=== PATIENT | female | born 1950 | race Caucasian/White ===

== ENCOUNTER 2016-07-08 14:09 | Emergency (ER) | payer BC, MEDICARE, OTHER ==
[~2016-07-08] VITALS: Ht 160 cm; Wt 100.3 kg
[~2016-07-08 14:09] MED LIST: ALBU18002 INH; ASPI81TA28 PO; ATV1 PO; BIOT1CAP3 PO; CHOL1000 PO; CYCL10TA6 PO; DXP/75 PO; ERGO1CAP35 PO; OMEP40CA41 PO; OXYC-57 PO; PROM25SU28 PR; ROSU5TAB PO; RST15 PO
[2016-07-08 14:13] VITALS: TEMP 37; Ht 160 cm; Wt 100.3 kg
[2016-07-08] MEDS ORDERED: VTMD PO (14:43)
[2016-07-08] MEDS ORDERED: HYDROmorphone INJ 0.5 MG/0.5 ML SYR IV STA ×2 (15:09→16:20)
[2016-07-08] MEDS ORDERED: SODIUM CHLORIDE 0.9% 500ML 500 ML IV STA (15:09)
[2016-07-08] MEDS ORDERED: PROMETHAZINE HCL INJ 12.5 MG in SODIUM CHLORIDE 0.9% 50ML 50 ML IV STA (15:09)
--- NOTE | 2016-07-08 15:16 | EMERGENCY ROOM VISIT NOTE ---
History First contact with patient: 14:54 Chief Complaint: NAUSEA Stated Complaint: NAUSEA, WEAKNESS BOTH IN ARMS AND LEGS Nursing Triage Summary: Triage note: pt ambulatory to triage. pt reports bilat arm and weakness x 3 days. pt reports nausea, vomitting and diarrhea since yesterday. pt reports left shoulder pain "i need a shoulder replacement, i think the pain is making me sick." History of Present Illness The patient is a 66 year old female who presents to the Emergency Room via private vehicle accompanied by with complaints of "Nausea, weakness both in arms and legs". The patient states that she began with nausea 3 days ago as well as weakness and severe pain left shoulder. She feels the pain in the shoulder is out of control. She was to have surgery on the left shoulder by Dr. Funes, in April but the patient had pneumonia therefore had to reschedule. She has associated vomiting which began this morning. She then notes that the generalized weakness began last Thursday and is described as "tired". She has a history of shoulder replacements in 2011 and 2012 with severe pain of which she rates as a 9/10. She's been taking her Percocet 5/325 with no relief. She does have neuropathy in her feet which also causes her a lot of pain. She does have a history of hypertension, as well as used to have diabetes. She did have a stroke last November. There is no associated diarrhea, slurred speech, unilateral weakness, abdominal pain, chest pain, shortness of breath, fevers, chills, new trauma or recent surgery, or urinary symptoms. Review of Systems A complete 10-point Review of Systems was discussed with the patient, with pertinent positives and negatives listed in the History of Present Illness. All remaining Review of Systems questions can be considered negative unless otherwise specified. Past Medical/Surgical History Medical Problems: (1) Anxiety (2) Asthma (3) C. difficile diarrhea (4) section (5) Cholecystectomy (6) DM2 (diabetes mellitus, type 2) (7) Hypertension (8) left shoulder surgery (9) Noncompliance w/medication treatment due to intermit use ofmedication (10) Parathyroidectomy (11) Replacement of total knee joint (12) Sacral back pain (13) Syncope Surgical Problems: (1) H/O spinal fusion Family History Diabetes mellitus Gallbladder disease Heart disease Hypertension Social History Smoking Status: Never Smoker Alcohol Use: none Marital Status: Housing Status: lives with significant other Occupation Status: unemployed Current/Historical Medications Scheduled Aspirin (Aspirin Ec), 81 MG PO QAM Biotin (Biotin), 10,000 UNITS PO QAM Cholecalciferol (Vitamin D3), 1 TAB PO QAM Doxepin Hcl (Doxepin), 75 MG PO QAM Doxepin Hcl (Doxepin), 150 MG PO QPM Ergocalciferol (Vitamin D), 50,000 INTER.UNIT PO 3XWK Lorazepam (Lorazepam), 1 MG PO QAM Omeprazole (Prilosec), 40 MG PO QAM Pediatric Multiple Vitamin W/ (Multivitamin Gummies Chil), 1 TAB PO QAM Scheduled PRN Cyclobenzaprine Hcl (Flexeril), 10 MG PO BID PRN for Muscle Spasm Oxycodone/Acetaminophen 5MG/325MG (Percocet 5MG/325MG), 1 TABLET PO Q6H PRN for Pain Promethazine Hcl (Phenergan Suppository), 25 MG IL Q6H PRN for Nausea Temazepam (Temazepam), 15 MG PO HS PRN for Sleep Allergies Coded Allergies: Atorvastatin (Verified Allergy, Unknown, myalgias per PCP note , 07/08/16) CI Pigment Blue 63 (Verified Adverse Reaction, Mild, PSYCHOSIS, 07/08/16) Duloxetine (Verified Adverse Reaction, Mild, PSYCHOSIS, 07/08/16) Gabapentin (Verified Adverse Reaction, Mild, PSYCHOSIS, 07/08/16) Morphine (Verified Adverse Reaction, Mild, NAUSEA, 07/08/16) NSAIDs (Verified Adverse Reaction, Unknown, s/p bariatric surgery, 07/08/16 ) per [facility] [place] Physical Exam Vital Signs Date Time Temp Pulse Resp B/P Pulse Ox O2 Delivery O2 Flow Rate FiO2 07/08/16 19:59 89 18 160/100 95 07/08/16 17:39 89 18 07/08/16 17:09 79 25 07/08/16 16:39 88 31 07/08/16 16:11 93 20 154/101 95 Room Air 07/08/16 16:10 154/101 07/08/16 16:09 30 07/08/16 15:41 93 07/08/16 15:39 93 26 07/08/16 14:13 37.0 124 18 142/80 94 Room Air Physical Exam VITAL SIGNS - Vital signs and nursing notes were reviewed. Afebrile, normotensive 142/80, tachycardic at a rate of 124 bpm and saturating well on room air 94%. GENERAL -66-year-old female appearing her stated age who is in no acute distress. Communicates well with provider and answers questions appropriately. SKIN - Without rashes. No breaks in the integument. HEAD - NC/AT. EYES - PERRL with EOMI bilaterally. Sclera anicteric. Palpebral conjunctiva pink and moist with no injection noted. EARS - No deformities of external structures noted on gross examination bilaterally. No hemotympanum. External auditory canals without discharge or otorrhea. Tympanic membranes pearly pederson without retraction or bulging. No fluid or purulent material visualized behind the TM. Handle of malleus, umbo, cone of light, pars tensa/flaccid all easily visualized. NOSE - Midline and without cyanosis. No epistaxis or purulent drainage noted. Septum midline without deviation or septal hematoma noted. MOUTH/OROPHARYNX - Without perioral cyanosis. Buccal mucosa pink and moist and without leukoplakia. Tongue midline with equal elevation of palate bilaterally. No tonsillar hypertrophy, erythema, or exudates noted. Good dentition noted. NECK - Neck with FROM. Supple to palpation. No lymphadenopathy noted. No nuchal rigidity. No meningeal signs. LUNGS - Chest wall symmetric without accessory muscle use, intercostals retractions, or central cyanosis. Normal vesicular breath sounds CTA B/L. No wheezes, rales, or rhonchi appreciated. CARDIAC - RRR with S1/S2. No murmur, rubs, or gallops appreciated. ABDOMEN - Abdominal contour without pulsations or visible masses. BS normoactive all four quadrants. No tenderness, palpable masses, hepatosplenomegaly, or ascites noted. EXTREMITIES - No clubbing or peripheral cyanosis. No pretibial edema present. +3 /5 radial, posterior tibial, and dorsalis pedis pulses palpated throughout. +5/ 5 strength noted in UE/LE bilaterally. The left shoulder is with limited range of motion, with tenderness to abduction of the left shoulder. There is pain radiating down to the left hand. No neurologic deficits appreciated. NEUROLOGIC - Cranial nerves II through XII grossly intact. Sensory intact to light touch throughout. PSYCH - A&Ox3 and cooperates fully with examiner. Pt is very pleasant and interacts well with examiner. Medical Decision & Procedures ER Provider Diagnostic Interpretation: CT SCAN OF THE BRAIN WITHOUT IV CONTRAST CLINICAL HISTORY: Nausea. Weakness. COMPARISON STUDY: CT of the brain dated 03/25/2016. TECHNIQUE: Unenhanced axial CT scan of the brain is performed from the vertex to the skull base. CT DOSE: 614.27 mGy.cm FINDINGS: Brain parenchyma: There are age-related involutional changes noting mild subcortical and periventricular microangiopathic change. There is no hemorrhage, mass effect, or evidence of acute territorial ischemia by CT criteria. Pederson-white matter is preserved. No extra-axial fluid collection is seen. Ventricles, sulci, cisterns: Prominent secondary to involutional change. Intracranial vasculature: There is atherosclerotic calcification of the cavernous carotid and vertebral arteries. Calvarium: The calvarium appears intact. There is incomplete fusion of the posterior ring of C1, likely on a congenital basis. Sinuses and mastoids: There is evidence of previous paranasal sinus surgery. The visualized paranasal sinuses are clear. The mastoid air cells are well pneumatized. Orbits: The bony orbits are grossly intact. There are ocular lens implants. IMPRESSION: There is no hemorrhage, mass effect, or evidence of acute territorial ischemia by CT criteria. Electronically signed by: Jarod Singleton M.D. 07/08/2016 4:11 PM Dictated Date/Time: 07/08/2016 4:08 PM ULTRASOUND LEFT UPPER EXTREMITY VENOUS CLINICAL HISTORY: Left arm pain and edema. COMPARISON STUDY: No priors. TECHNIQUE: Real-time, grayscale, and color Doppler sonography of the deep veins of the left upper extremity is performed. Compression and augmentation were utilized. FINDINGS: There is no sonographic evidence of deep venous thrombosis identified in the left upper extremity. The left internal jugular, axillary, and brachial veins are patent and normally compressible. Normal venous waveforms and augmentation are seen within the left subclavian vein. The cephalic and basilic veins are clear. The visualized radial and ulnar veins are patent. IMPRESSION: There is no sonographic evidence of deep venous thrombosis identified in the left upper extremity. Electronically signed by: Jarod Singleton M.D. 07/08/2016 6:46 PM Dictated Date/Time: 07/08/2016 6:46 PM TWO VIEW CHEST CLINICAL HISTORY: Left shoulder pain. Weakness and nausea. FINDINGS: PA and lateral chest radiographs are compared to study dated 05/25/2016. The heart is top normal in size and there is atherosclerotic calcification of the thoracic aorta. The pulmonary vasculature is noncongested. Chronic interstitial thickening is unchanged. There is no airspace consolidation or pleural effusion. Chronic elevation of left hemidiaphragm is similar to previous with left basilar atelectasis. No pneumothorax is seen. The skeletal structures are osteopenic. A left shoulder arthroplasty is in place. Degenerative change is noted throughout the thoracic spine. Fusion hardware and spinal rods are partially imaged at the thoracolumbar junction. Surgical clips are seen in the upper abdomen. IMPRESSION: No active disease in the chest. Electronically signed by: Jarod Singleton M.D. 07/08/2016 4:34 PM Dictated Date/Time: 07/08/2016 4:32 PM LEFT SHOULDER 4 VIEWS CLINICAL HISTORY: Left shoulder pain. Left arm weakness. FINDINGS: 4 views of the left shoulder are compared to study dated 11/19/2011. The skeletal structures are osteopenic. No fracture is seen. A left shoulder arthroplasty is in near-anatomic alignment. Postoperative change/widening is suggestive the acromioclavicular joint with mild bony overgrowth. No periprosthetic lucency is identified. Bony remodeling is noted in the greater tuberosity. The overlying soft tissues are within normal limits. Partially imaged left upper lobe lung parenchyma appears clear. IMPRESSION: No acute bony abnormality is seen in the left shoulder noting an arthroplasty in near-anatomic alignment. Electronically signed by: Jarod Singleton M.D. 07/08/2016 4:36 PM Dictated Date/Time: 07/08/2016 4:34 PM Laboratory Results 07/08/16 15:30 Red Blood Count 4.39, Mean Corpuscular Volume 91.1, Mean Corpuscular Hemoglobin 32.3, Mean Corpuscular Hemoglobin Concent 35.5, Mean Platelet Volume 9.0, Neutrophils (%) (Auto) 74.1, Lymphocytes (%) (Auto) 18.6, Monocytes (%) (Auto) 6.3, Eosinophils (%) (Auto) 0.4, Basophils (%) (Auto) 0.2, Neutrophils # (Auto) 4.04, Lymphocytes # (Auto) 1.01, Monocytes # (Auto) 0.34, Eosinophils # (Auto) 0.02, Basophils # (Auto) 0.01 07/08/16 15:30 Test 07/08/16 15:26 07/08/16 15:30 07/08/16 15:56 07/08/16 16:39 Urine Color YELLOW Urine Appearance CLEAR (CLEAR) Urine pH 5.0 (4.5-7.5) Urine Specific [place] 1.021 (1.000-1.030) Urine Protein NEG (NEG) Urine Glucose (UA) 3+ (NEG) Urine Ketones NEG (NEG) Urine Occult Blood NEG (NEG) Urine Nitrite NEG (NEG) Urine Bilirubin NEG (NEG) Urine Urobilinogen NEG (NEG) Urine Leukocyte Esterase NEG (NEG) White Blood Count 5.44 K/uL (4.8-10.8) Red Blood Count 4.39 M/uL (4.2-5.4) Hemoglobin 14.2 g/dL (12.0-16.0) Hematocrit 40.0 % (37-47) Mean Corpuscular Volume 91.1 fL (80-100) Mean Corpuscular Hemoglobin 32.3 pg (25-34) Mean Corpuscular Hemoglobin Concent 35.5 g/dl (32-36) Platelet Count 246 K/uL (130-400) Mean Platelet Volume 9.0 fL (7.4-10.4) Neutrophils (%) (Auto) 74.1 % Lymphocytes (%) (Auto) 18.6 % Monocytes (%) (Auto) 6.3 % Eosinophils (%) (Auto) 0.4 % Basophils (%) (Auto) 0.2 % Neutrophils # (Auto) 4.04 K/uL (1.4-6.5) Lymphocytes # (Auto) 1.01 K/uL (1.2-3.4) Monocytes # (Auto) 0.34 K/uL (0.11-0.59) Eosinophils # (Auto) 0.02 K/uL (0-0.5) Basophils # (Auto) 0.01 K/uL (0-0.2) RDW Standard Deviation 45.4 fL (36.4-46.3) RDW Coefficient of Variation 13.6 % (11.5-14.5) Immature Granulocyte % (Auto) 0.4 % Immature Granulocyte # (Auto) 0.02 K/uL (0.00-0.02) Anion Gap 9.0 mmol/L (3-11) Est Creatinine Clear Calc Drug Dose 84.5 ml/min Estimated GFR () 98.8 Estimated GFR (Non- 85.2 BUN/Creatinine Ratio 19.2 (10-20) Calcium Level 8.6 mg/dl (8.5-10.1) Magnesium Level 2.0 mg/dl (1.8-2.4) Total Bilirubin 0.1 mg/dl (0.2-1) Aspartate Amino Transf (AST/SGOT) 14 U/L (15-37) Alanine Aminotransferase (ALT/SGPT) 17 U/L (12-78) Alkaline Phosphatase 125 U/L (45-117) Total Creatine Kinase 43 U/L (26-192) Creatine Kinase MB 1.0 ng/ml (0.5-3.6) Creatine Kinase MB Ratio 2.3 (0-3.0) Troponin I < 0.015 ng/ml (0-0.045) Pro-B-Type Natriuretic Peptide 212 pg/ml (0-900) Total Protein 6.3 gm/dl (6.4-8.2) Albumin 3.3 gm/dl (3.4-5.0) Globulin 3.0 gm/dl (2.5-4.0) Albumin/Globulin Ratio 1.1 (0.9-2) Chemistry Specimen Hemolysis Influenza Type A Antigen Neg for Influ A (NEG) Influenza Type B Antigen Neg for Influ B (NEG) D-Dimer 340 ug/L FEU (0-500) Medications Administered Medications (Trade) Dose Ordered Sig/Valente Route Start Time Stop Time Status Last Admin Dose Admin Sodium Chloride (Nss 500ml) 500 ml @ 500 mls/hr Q1H STAT IV 07/08/16 15:09 07/08/16 16:08 DC 07/08/16 15:41 500 MLS/HR Hydromorphone HCl 0.5 mg 0.5 mg NOW STAT IV 07/08/16 15:09 07/08/16 15:14 DC 07/08/16 15:44 0.5 MG Promethazine HCl/ Sodium Chloride (Phenergan Inj/ Nss 50ml) 50.5 ml @ 204 mls/hr NOW STAT IV 07/08/16 15:09 07/08/16 15:23 DC 07/08/16 15:40 204 MLS/HR Hydromorphone HCl (Dilaudid Inj) 0.5 mg NOW STAT IV 07/08/16 16:20 07/08/16 16:21 DC 07/08/16 16:31 0.5 MG Medical Decision Patient was seen and evaluated as above. After obtaining a thorough history and physical examination IV access was obtained and a CBC, CMP, d-dimer, magnesium, chest two-view routine, shoulder two-view routine, troponin, stat EKG , CK-MB, CPK secondary to subjective and objective examination findings. She was hydrated with 500 mL some normal saline as she stated she felt dehydrated and did have an episode of emesis. For pain she was given 0.5 mg of Dilaudid after noting a morphine allergy and then 12.5 mg of Phenergan as she states this works better Zofran for her. The Dilaudid was repeated after some time because the patient still experiencing noticeable pain. A CT scan of the head was obtained as well as a BNP, UA clean catch culture if indicated and flu swab. In review of the blood work CBC reveals no leukocytosis or anemia. D- dimer is negative. CMP reveals elevated random glucose and decrease in total bilirubin and AST as well as alkaline phosphatase elevation at 125. Total protein and albumin were slightly low. Urine was negative. There was 3+ glucose. Negative influenza. Upper extremity ultrasound reveals no DVT, CT of the head reveals no acute abnormalities but the external findings were discussed with the patient. Chest x-ray and shoulder x-ray were unremarkable for acute process. The patient is most likely experiencing a viral illness injury to her general malaise and vomiting. I do not suspect any emergent or surgical infectious process at this time. Her vital signs are stable. I do not suspect any acute coronary syndrome or pulmonary embolism patient's EKG revealed no significant change compared to EKG of 05/25/2016. She was found to have a ventricular rate of 92 bpm without ectopy or ischemic change. The patient was educated upon these findings and was instructed to follow-up. I suspect the left shoulder pain is secondary to her chronic findings that she follows the orthopedist 4. The ultrasound of the left upper extremity was ordered because there was noted swelling in the left arm without injury this did not reveal any blood clot at this time. I believe she is able follow up in the outpatient setting at this time. She was educated upon worrisome symptoms in which to return, had questions answered prior to discharge and was discharged home in good condition. The patient noted that her pain did feel better than when she came in. In the evaluation treatment this patient following differential diagnoses were entertained: Myocardial infarction, viral illness, pulmonary embolism, sepsis, left shoulder fracture, among others. Impression Primary Impression: Weakness Additional Impressions: Nausea Shoulder pain, left Departure Information Dispostion Home / Self-Care Condition GOOD Referrals Conrad Mckeon D.O. (PCP) Patient Instructions My [facility] Additional Instructions You were seen in the emergency department for nausea and weakness in both arms and legs. A thorough workup has ruled out any emergent causes at this time. As we discussed there are some incidental findings within the blood work as well as the scans. There is atherosclerotic calcification in the carotid, vertebral and thoracic aorta. Please follow up with her family doctor regarding this. Please follow-up with her family doctor regarding today's visit as soon as possible by calling their office first thing tomorrow morning. Please call Dr. Funes's office to inform them that you were seen in the emergency department for your shoulder and please request sooner follow-up. Please return to the emergency department with any new/concerning symptoms. Problem Qualifiers Additional Impressions: Shoulder pain, left Chronicity: chronic Qualified Codes: M25.512 - Pain in left shoulder; G89.29 - Other chronic pain
[2016-07-08 15:45] LABS: BASO % 0.2 %; BASO ABS # 0.01 K/uL (0-0.2); COMPLETE YES; EOS % 0.4 %; IG% 0.4 %; LYMPH % 18.6 %; LYMPH ABS # 1.01 K/uL (1.2-3.4); MEAN CELL VOLUME 91.1 fL (80-100); MEAN CORPUSCULAR HEMOGLOBIN 32.3 pg (25-34); MEAN CORPUSCULAR HGB CONC 35.5 g/dl (32-36); MONO % 6.3 %; NEUT % 74.1 %; PLATELET COUNT 246 K/uL (130-400); RED BLOOD COUNT 4.39 M/uL (4.2-5.4); WHITE BLOOD COUNT 5.44 K/uL (4.8-10.8)
[2016-07-08 16:10] LABS: ALB/GLOB RATIO 1.1 (0.9-2); ALKALINE PHOSPHATASE 125 U/L (45-117); ALT/SGPT 17 U/L (12-78); AST/SGOT 14 U/L (15-37); BLOOD UREA NITROGEN 14 mg/dl (7-18); BUN/CREATININE RATIO 19.2 (10-20); CALCIUM 8.6 mg/dl (8.5-10.1); CARBON DIOXIDE 24 mmol/L (21-32); CHLORIDE 106 mmol/L (98-107); CKMB/CK RATIO 2.3 (0-3.0); CREATININE 0.73 mg/dl (0.60-1.20); GLUCOSE 149 mg/dl (70-99); POTASSIUM 3.9 mmol/L (3.5-5.1); SODIUM 139 mmol/L (136-145)
--- NOTE | 2016-07-08 16:13 | DIAGNOSTIC IMAGING REPORT ---
CT SCAN OF THE BRAIN WITHOUT IV CONTRAST CLINICAL HISTORY: Nausea. Weakness. COMPARISON STUDY: CT of the brain dated 03/25/2016. TECHNIQUE: Unenhanced axial CT scan of the brain is performed from the vertex to the skull base. CT DOSE: 614.27 mGy.cm FINDINGS: Brain parenchyma: There are age-related involutional changes noting mild subcortical and periventricular microangiopathic change. There is no hemorrhage, mass effect, or evidence of acute territorial ischemia by CT criteria. Pederson-white matter is preserved. No extra-axial fluid collection is seen. Ventricles, sulci, cisterns: Prominent secondary to involutional change. Intracranial vasculature: There is atherosclerotic calcification of the cavernous carotid and vertebral arteries. Calvarium: The calvarium appears intact. There is incomplete fusion of the posterior ring of C1, likely on a congenital basis. Sinuses and mastoids: There is evidence of previous paranasal sinus surgery. The visualized paranasal sinuses are clear. The mastoid air cells are well pneumatized. Orbits: The bony orbits are grossly intact. There are ocular lens implants. IMPRESSION: There is no hemorrhage, mass effect, or evidence of acute territorial ischemia by CT criteria. Electronically signed by: Jarod Singleton M.D. 07/08/2016 4:11 PM Dictated Date/Time: 07/08/2016 4:08 PM
[2016-07-08 16:34] LABS: URINE APPEARANCE CLEAR (CLEAR); URINE BILIRUBIN NEG (NEG); URINE COLOR YELLOW; URINE NITRITE NEG (NEG); URINE SPECIFIC GRAVITY 1.021 (1.000-1.030); UROBILINOGEN NEG (NEG); ZZUR CULT IF INDIC CLEAN CATCH NO
--- NOTE | 2016-07-08 16:36 | DIAGNOSTIC IMAGING REPORT ---
TWO VIEW CHEST CLINICAL HISTORY: Left shoulder pain. Weakness and nausea. FINDINGS: PA and lateral chest radiographs are compared to study dated 05/25/2016. The heart is top normal in size and there is atherosclerotic calcification of the thoracic aorta. The pulmonary vasculature is noncongested. Chronic interstitial thickening is unchanged. There is no airspace consolidation or pleural effusion. Chronic elevation of left hemidiaphragm is similar to previous with left basilar atelectasis. No pneumothorax is seen. The skeletal structures are osteopenic. A left shoulder arthroplasty is in place. Degenerative change is noted throughout the thoracic spine. Fusion hardware and spinal rods are partially imaged at the thoracolumbar junction. Surgical clips are seen in the upper abdomen. IMPRESSION: No active disease in the chest. Electronically signed by: Jarod Singleton M.D. 07/08/2016 4:34 PM Dictated Date/Time: 07/08/2016 4:32 PM
[2016-07-08 16:38] LABS: MANUAL MICROSCOPIC REQUIRED? NO; REVIEW REQ? NO
--- NOTE | 2016-07-08 16:38 | DIAGNOSTIC IMAGING REPORT ---
LEFT SHOULDER 4 VIEWS CLINICAL HISTORY: Left shoulder pain. Left arm weakness. FINDINGS: 4 views of the left shoulder are compared to study dated 11/19/2011. The skeletal structures are osteopenic. No fracture is seen. A left shoulder arthroplasty is in near-anatomic alignment. Postoperative change/widening is suggestive the acromioclavicular joint with mild bony overgrowth. No periprosthetic lucency is identified. Bony remodeling is noted in the greater tuberosity. The overlying soft tissues are within normal limits. Partially imaged left upper lobe lung parenchyma appears clear. IMPRESSION: No acute bony abnormality is seen in the left shoulder noting an arthroplasty in near-anatomic alignment. Electronically signed by: Jarod Singleton M.D. 07/08/2016 4:36 PM Dictated Date/Time: 07/08/2016 4:34 PM
--- NOTE | 2016-07-08 18:48 | DIAGNOSTIC IMAGING REPORT ---
ULTRASOUND LEFT UPPER EXTREMITY VENOUS CLINICAL HISTORY: Left arm pain and edema. COMPARISON STUDY: No priors. TECHNIQUE: Real-time, grayscale, and color Doppler sonography of the deep veins of the left upper extremity is performed. Compression and augmentation were utilized. FINDINGS: There is no sonographic evidence of deep venous thrombosis identified in the left upper extremity. The left internal jugular, axillary, and brachial veins are patent and normally compressible. Normal venous waveforms and augmentation are seen within the left subclavian vein. The cephalic and basilic veins are clear. The visualized radial and ulnar veins are patent. IMPRESSION: There is no sonographic evidence of deep venous thrombosis identified in the left upper extremity. Electronically signed by: Jarod Singleton M.D. 07/08/2016 6:46 PM Dictated Date/Time: 07/08/2016 6:46 PM
[2016-07-08 19:59] VITALS: BP 160/100; PULSE 89; O2SAT 95
--- NOTE | 2016-07-08 23:53 | EMERGENCY ROOM VISIT NOTE ---
ED Visit Note First contact with patient: 14:57 I have personally evaluated and examined this patient. I agree with assessment and plan of Arnold Gaffney PA-C.
[2016-09-07] MEDS ORDERED: PLV75 PO (14:31)
[2016-09-07] MEDS ORDERED: OXYC-57 PO (14:31)
[2016-09-07] MEDS ORDERED: CZR50 PO (14:31)
[2016-09-08] MEDS ORDERED: TPRSR25 PO (12:29)
[2016-09-08] MEDS ORDERED: PANT1TAB48 PO (12:48)
[2016-12-27] MEDS ORDERED: CZR50 PO (10:19)
[2016-12-27] MEDS ORDERED: ULT50X PO (10:19)
[2016-12-27] MEDS ORDERED: SNQ50 PO (10:19)
[2016-12-27] MEDS ORDERED: AMB5 PO (10:19)
[2017-01-20] MEDS ORDERED: LACT10CA3 PO (15:19)
[2017-01-20] MEDS ORDERED: ATV1 PO (15:19)
[2017-01-20] MEDS ORDERED: CPR500 PO (15:19)
[2017-01-20] MEDS ORDERED: TRAM-10 PO (15:19)
[2017-01-31] MEDS ORDERED: PEDI1CHW95 PO (10:51)
[2017-01-31] MEDS ORDERED: PLV75 PO (15:52)
[2017-01-31] MEDS ORDERED: TPRSR/25 PO (15:52)
[2017-01-31] MEDS ORDERED: LOSA100T65 PO (15:52)
[2017-01-31] MEDS ORDERED: ONDA-63 PO (15:52)
[2017-01-31] MEDS ORDERED: PRT/40 PO (15:52)
[2017-01-31] MEDS ORDERED: RGL/5 PO (15:52)
[2017-01-31] MEDS ORDERED: VNTHFA/IN INH (15:52)
[2017-01-31] MEDS ORDERED: SNQ/50 PO (15:52)
[2017-01-31] MEDS ORDERED: CYNI1000 IM (15:56)
[2017-01-31] MEDS ORDERED: BIOT10CA PO (17:48)
[2017-01-31] MEDS ORDERED: CYCL0.052 OPB (17:48)
[2017-01-31] MEDS ORDERED: FLUN0.02 NAE (17:48)
[2017-02-02] MEDS ORDERED: KFL250 PO (13:27)
== END 2016-07-08 19:59 | disposition home or self-care (01) ==
LOC: C.EDB 14:11 → C.EDC 19:59
DX: R53.1 Weakness (principal); R11.0 Nausea; M25.512 Pain in left shoulder; F41.9 Anxiety disorder, unspecified; J45.909 Unspecified asthma, uncomplicated; E11.9 Type 2 diabetes mellitus without complications; Z79.82 Long term (current) use of aspirin; Z79.899 Other long term (current) drug therapy

== ENCOUNTER 2016-08-08 11:37 | Emergency (ER) | payer MEDICARE, OTHER ==
[~2016-08-08] VITALS: Ht 160 cm; Wt 102.0 kg
[~2016-08-08 11:37] MED LIST changes: -ALBU18002 INH; -ERGO1CAP35 PO; -ROSU5TAB PO; +VTMD PO
[2016-08-08 11:42] VITALS: TEMP 36.9; Ht 160 cm; Wt 102.0 kg
[2016-08-08 12:46] LABS: BASO % 0.2 %; BASO ABS # 0.01 K/uL (0-0.2); COMPLETE YES; EOS % 1.9 %; IG% 0.4 %; LYMPH % 23.9 %; LYMPH ABS # 1.23 K/uL (1.2-3.4); MEAN CELL VOLUME 90.1 fL (80-100); MEAN CORPUSCULAR HGB CONC 34.4 g/dl (32-36); MEAN PLATELET VOLUME 8.5 fL (7.4-10.4); MONO % 9.9 %; NEUT % 63.7 %; PLATELET COUNT 236 K/uL (130-400); RED BLOOD COUNT 4.55 M/uL (4.2-5.4); WHITE BLOOD COUNT 5.14 K/uL (4.8-10.8)
--- NOTE | 2016-08-08 13:00 | DIAGNOSTIC IMAGING REPORT ---
CHEST ONE VIEW PORTABLE CLINICAL HISTORY: Cough and fever. COMPARISON STUDY: Chest radiograph July 08, 2016. FINDINGS: Spinal fusion, cholecystectomy clips and left shoulder arthroplasty are incidentally noted. No pneumothorax or pleural effusion is present. Cardiomediastinal silhouette is stable. There is no evidence of pulmonary edema. No consolidation is identified. IMPRESSION: No acute findings. No change in appearance of the chest. Electronically signed by: Everardo De La Torre M.D. 08/08/2016 12:59 PM Dictated Date/Time: 08/08/2016 12:58 PM
[2016-08-08 13:01] LABS: BUN/CREATININE RATIO 17.6 (10-20); CALCIUM 8.5 mg/dl (8.5-10.1); CREATININE 0.84 mg/dl (0.60-1.20)
[2016-08-08] MEDS ORDERED: OXYCODONE HCL IR 5 MG TAB (IMMEDIATE RELEASE) PO STA ×2 (13:27→14:46)
--- NOTE | 2016-08-08 14:29 | DIAGNOSTIC IMAGING REPORT ---
CT SCAN OF THE NECK WITH IV CONTRAST CLINICAL HISTORY: Right-sided neck mass. COMPARISON STUDY: No priors. TECHNIQUE: Following the IV administration of 93 cc of Optiray 320, CT scan of the soft tissues of the neck was performed from the skull base to the upper chest. Images are reviewed in the axial, sagittal, and coronal planes. IV contrast was administered without complication. The examination is degraded by motion artifact. CT DOSE: 358.16 mGycm FINDINGS: Pharynx: The nasopharynx, oropharynx, and laryngeal pharynx are normal in appearance. The pharyngeal airway is widely patent. There is no evidence of mass lesion. The vocal cords are symmetric. The parapharyngeal fat is well maintained. The prevertebral/retropharyngeal soft tissues are within normal limits. The epiglottis is normal. Lymphadenopathy: No cervical lymphadenopathy is seen Thyroid: The right lobe of the thyroid gland is diminutive. Subcentimeter low density nodules are noted in the left thyroid lobe. Salivary glands: There is a 1.9 x 1.6 cm heterogeneously enhancing nodule in the right parotid gland best seen on axial image #100. This likely contains small internal cystic foci. The left parotid gland and the submandibular glands are normal in appearance. Brain parenchyma: The visualized brain parenchyma at the skull base is normal in appearance. Vascular structures: The carotid arteries and jugular veins are patent bilaterally. The first carotid calcification is noted in the carotid bulbs. Skeletal structures: The skeletal structures are osteopenic. Imaged portions of the calvarium at the skull base are within normal limits. The cervical spine appears intact noting multilevel spondylosis. Orbits: The bony orbits are intact. Orbital contents are normal in appearance noting bilateral ocular lens implants. Sinuses and mastoids: There is evidence of previous paranasal sinus surgery. A retention cyst is seen in the right maxillary antrum. There is trace mucosal thickening within the right maxillary sinus and the ethmoid resection cavities. Trace mucosal thickening is also seen in the right frontal sinus. The mastoid air cells are well pneumatized. Lung apices: Visualized apical lung parenchyma is clear. IMPRESSION: 1. There is a 1.9 x 1.6 cm heterogeneously enhancing nodule in the right parotid gland. This is pathologically indeterminant, and the top differential considerations include a Warthin tumor or possibly a pleomorphic adenoma. ENT follow-up is recommended. 2. The pharyngeal soft tissues are normal as visualized. 3. No cervical lymphadenopathy is seen. 4. Mild paranasal sinus disease and postoperative change as above. Electronically signed by: Jarod Singleton M.D. 08/08/2016 2:27 PM Dictated Date/Time: 08/08/2016 2:18 PM
[2016-08-08] MEDS ORDERED: HYDROmorphone INJ 0.5 MG/0.5 ML SYR IV STA (15:01)
[2016-08-08] MEDS ORDERED: AMOX875T PO (15:04)
[2016-08-08] MEDS ORDERED: AMOXICILLIN/CLAVULANATE TAB 875 MG TAB PO ONE (15:15)
[2016-08-08 15:23] VITALS: BP 154/70; PULSE 72; O2SAT 97
--- NOTE | 2016-08-08 19:59 | EMERGENCY ROOM VISIT NOTE ---
History Report prepared by Tano: Chan Edwards Under the Supervision of: Dr. Gonzalo Richard D.O. First contact with patient: 11:52 Chief Complaint: EAR PAIN Stated Complaint: LUMP BELOW L EAR, PAIN, HARD TO TURN NECK History of Present Illness The patient is a 66 year old female who presents to the Emergency Room with complaints of a constant mass on the right side of her neck that she noticed this morning. The mass is painful with movement. The patient has had a subjective fever and cough over the past week, which are improving. She did not record her temperature. Patient denies headache, change in vision, ear pain, difficulty swallowing, chest pain, shortness of breath, nausea, vomiting, diarrhea, pain with urination, and melena. The patient had all of her childhood immunizations. She had toast and scrambled eggs for breakfast, and did not have any problems swallowing. The patient has a history of TIA and pneumonia. Source of History: patient Onset: this morning Position: neck (right) Quality: other (mass) Timing: constant Modifying Factors (Worsening): movement Associated Symptoms: + cough, + fevers, No SOB, No chest pain, No diarrhea, No headache, No melena, No nausea, No urinary symptoms, No vomiting Review of Systems See HPI for pertinent positives & negatives. A total of 10 systems reviewed and were otherwise negative. Past Medical & Surgical Medical Problems: (1) Anxiety (2) Asthma (3) C. difficile diarrhea (4) section (5) Cholecystectomy (6) DM2 (diabetes mellitus, type 2) (7) Hypertension (8) left shoulder surgery (9) Noncompliance w/medication treatment due to intermit use ofmedication (10) Parathyroidectomy (11) Replacement of total knee joint (12) Sacral back pain (13) Syncope Surgical Problems: (1) H/O spinal fusion Family History Diabetes mellitus Gallbladder disease Heart disease Hypertension Social History Smoking Status: Never Smoker Alcohol Use: none Marital Status: Housing Status: lives with significant other Occupation Status: unemployed Current/Historical Medications Scheduled Amoxicillin & Pot Clavulanate (Augmentin 875-125 mg), 875 MG PO BID Aspirin (Aspirin Ec), 81 MG PO QAM Biotin (Biotin), 10,000 UNITS PO QAM Cholecalciferol (Vitamin D3), 1 TAB PO QAM Doxepin Hcl (Doxepin), 150 MG PO QAM Doxepin Hcl (Doxepin), 75 MG PO QPM Ergocalciferol (Vitamin D), 50,000 INTER.UNIT PO 3XWK Lorazepam (Lorazepam), 1 MG PO QAM Omeprazole (Prilosec), 40 MG PO QAM Pediatric Multiple Vitamin W/ (Multivitamin Gummies Chil), 1 TAB PO QAM Scheduled PRN Oxycodone/Acetaminophen 5MG/325MG (Percocet 5MG/325MG), 1 TABLET PO Q6H PRN for Pain Promethazine Hcl (Phenergan Suppository), 25 MG VA Q6H PRN for Nausea Temazepam (Temazepam), 15 MG PO HS PRN for Sleep Allergies Coded Allergies: Atorvastatin (Verified Allergy, Unknown, myalgias per PCP note , 08/08/16) CI Pigment Blue 63 (Verified Adverse Reaction, Mild, PSYCHOSIS, 08/08/16) Duloxetine (Verified Adverse Reaction, Mild, PSYCHOSIS, 08/08/16) Gabapentin (Verified Adverse Reaction, Mild, PSYCHOSIS, 08/08/16) Morphine (Verified Adverse Reaction, Mild, NAUSEA, 08/08/16) NSAIDs (Verified Adverse Reaction, Unknown, s/p bariatric surgery, 08/08/16 ) per gmg Physical Exam Vital Signs Date Time Temp Pulse Resp B/P Pulse Ox O2 Delivery O2 Flow Rate FiO2 08/08/16 15:23 72 18 154/70 97 08/08/16 13:36 87 20 159/97 95 Room Air 08/08/16 11:42 36.9 116 16 153/108 96 Room Air Physical Exam GENERAL: Sitting up in bed, disheveled, no acute distress, nontoxic. EYE EXAM: normal conjunctiva, PERRL and EOM's grossly intact EAR EXAM: TMs are clear bilaterally. OROPHARYNX: no exudate, no erythema, lips, buccal mucosa, and tongue normal and mucous membranes are moist, dentures present in upper mouth, no teeth lower mouth, no masses, erythema, or posterior pharyngeal swelling. NECK: Large, firm nodule which is tender to palpation over the right parotid gland, full range of motion. LUNGS: Clear to auscultation. Normal chest wall mechanics HEART: no murmurs, S1 normal and S2 normal ABDOMEN: abdomen soft, non-tender, normo-active bowel sounds, no masses, no rebound or guarding. BACK: Back is symmetrical on inspection and there is no deformity, no midline tenderness, no CVA tenderness. SKIN: no rashes and no bruising UPPER EXTREMITIES: upper extremities are grossly normal. LOWER EXTREMITIES: No pitting edema. NEURO EXAM: Normal sensorium, cranial nerves II-XII grossly intact, normal speech, no gross weakness of arms, no gross weakness of legs. Gross sensation intact. Medical Decision & Procedures ER Provider Diagnostic Interpretation: Xray results per the radiologist and my interpretation. Other results have been interpreted by the radiologist and reviewed by me. CHEST ONE VIEW PORTABLE CLINICAL HISTORY: Cough and fever. COMPARISON STUDY: Chest radiograph July 08, 2016. FINDINGS: Spinal fusion, cholecystectomy clips and left shoulder arthroplasty are incidentally noted. No pneumothorax or pleural effusion is present. Cardiomediastinal silhouette is stable. There is no evidence of pulmonary edema. No consolidation is identified. IMPRESSION: No acute findings. No change in appearance of the chest. Electronically signed by: Everardo De La Torre M.D. 08/08/2016 12:59 PM Dictated Date/Time: 08/08/2016 12:[address] SCAN OF THE NECK WITH IV CONTRAST CLINICAL HISTORY: Right-sided neck mass. COMPARISON STUDY: No priors. TECHNIQUE: Following the IV administration of 93 cc of Optiray 320, CT scan of the soft tissues of the neck was performed from the skull base to the upper chest. Images are reviewed in the axial, sagittal, and coronal planes. IV contrast was administered without complication. The examination is degraded by motion artifact. CT DOSE: 358.16 mGycm FINDINGS: Pharynx: The nasopharynx, oropharynx, and laryngeal pharynx are normal in appearance. The pharyngeal airway is widely patent. There is no evidence of mass lesion. The vocal cords are symmetric. The parapharyngeal fat is well maintained. The prevertebral/retropharyngeal soft tissues are within normal limits. The epiglottis is normal. Lymphadenopathy: No cervical lymphadenopathy is seen Thyroid: The right lobe of the thyroid gland is diminutive. Subcentimeter low density nodules are noted in the left thyroid lobe. Salivary glands: There is a 1.9 x 1.6 cm heterogeneously enhancing nodule in the right parotid gland best seen on axial image #100. This likely contains small internal cystic foci. The left parotid gland and the submandibular glands are normal in appearance. Brain parenchyma: The visualized brain parenchyma at the skull base is normal in appearance. Vascular structures: The carotid arteries and jugular veins are patent bilaterally. The first carotid calcification is noted in the carotid bulbs. Skeletal structures: The skeletal structures are osteopenic. Imaged portions of the calvarium at the skull base are within normal limits. The cervical spine appears intact noting multilevel spondylosis. Orbits: The bony orbits are intact. Orbital contents are normal in appearance noting bilateral ocular lens implants. Sinuses and mastoids: There is evidence of previous paranasal sinus surgery. A retention cyst is seen in the right maxillary antrum. There is trace mucosal thickening within the right maxillary sinus and the ethmoid resection cavities. Trace mucosal thickening is also seen in the right frontal sinus. The mastoid air cells are well pneumatized. Lung apices: Visualized apical lung parenchyma is clear. IMPRESSION: 1. There is a 1.9 x 1.6 cm heterogeneously enhancing nodule in the right parotid gland. This is pathologically indeterminant, and the top differential considerations include a Warthin tumor or possibly a pleomorphic adenoma. ENT follow-up is recommended. 2. The pharyngeal soft tissues are normal as visualized. 3. No cervical lymphadenopathy is seen. 4. Mild paranasal sinus disease and postoperative change as above. Electronically signed by: Jarod Singleton M.D. 08/08/2016 2:27 PM Dictated Date/Time: 08/08/2016 2:18 PM Laboratory Results 08/08/16 12:32 Red Blood Count 4.55, Mean Corpuscular Volume 90.1, Mean Corpuscular Hemoglobin 31.0, Mean Corpuscular Hemoglobin Concent 34.4, Mean Platelet Volume 8.5, Neutrophils (%) (Auto) 63.7, Lymphocytes (%) (Auto) 23.9, Monocytes (%) (Auto) 9.9, Eosinophils (%) (Auto) 1.9, Basophils (%) (Auto) 0.2, Neutrophils # (Auto) 3.27, Lymphocytes # (Auto) 1.23, Monocytes # (Auto) 0.51, Eosinophils # (Auto) 0.10, Basophils # (Auto) 0.01 08/08/16 12:32 Test 08/08/16 12:32 White Blood Count 5.14 K/uL (4.8-10.8) Red Blood Count 4.55 M/uL (4.2-5.4) Hemoglobin 14.1 g/dL (12.0-16.0) Hematocrit 41.0 % (37-47) Mean Corpuscular Volume 90.1 fL (80-100) Mean Corpuscular Hemoglobin 31.0 pg (25-34) Mean Corpuscular Hemoglobin Concent 34.4 g/dl (32-36) Platelet Count 236 K/uL (130-400) Mean Platelet Volume 8.5 fL (7.4-10.4) Neutrophils (%) (Auto) 63.7 % Lymphocytes (%) (Auto) 23.9 % Monocytes (%) (Auto) 9.9 % Eosinophils (%) (Auto) 1.9 % Basophils (%) (Auto) 0.2 % Neutrophils # (Auto) 3.27 K/uL (1.4-6.5) Lymphocytes # (Auto) 1.23 K/uL (1.2-3.4) Monocytes # (Auto) 0.51 K/uL (0.11-0.59) Eosinophils # (Auto) 0.10 K/uL (0-0.5) Basophils # (Auto) 0.01 K/uL (0-0.2) RDW Standard Deviation 45.0 fL (36.4-46.3) RDW Coefficient of Variation 13.7 % (11.5-14.5) Immature Granulocyte % (Auto) 0.4 % Immature Granulocyte # (Auto) 0.02 K/uL (0.00-0.02) Anion Gap 11.0 mmol/L (3-11) Est Creatinine Clear Calc Drug Dose 74.1 ml/min Estimated GFR () 83.4 Estimated GFR (Non- 71.9 BUN/Creatinine Ratio 17.6 (10-20) Calcium Level 8.5 mg/dl (8.5-10.1) Laboratory results per my review. Medications Administered Medications (Trade) Dose Ordered Sig/Valente Route Start Time Stop Time Status Last Admin Dose Admin Oxycodone HCl (Roxicodone Immediate Rel Tab) 5 mg NOW STAT PO 08/08/16 13:27 08/08/16 13:28 DC 08/08/16 13:27 5 MG Amoxicillin/ Clavulanate Potassium (Augmentin Tab) 875 mg ONE ONCE PO 08/08/16 15:15 08/08/16 15:16 DC 08/08/16 15:09 875 MG Hydromorphone HCl (Dilaudid Inj) 0.5 mg NOW STAT IV 08/08/16 15:01 08/08/16 15:02 DC 08/08/16 15:01 0.5 MG ED Course ED COURSE: Vital signs were reviewed and showed tachycardia. The patients medical record was reviewed The above diagnostic studies were performed and reviewed. ED treatments and interventions as stated above. 1210: The patient was evaluated in room C11a. A complete history and physical examination was performed. 1327: Oxycodone IR 5 mg PO. 1440: Discussed the case with Dr. Cadet, ENT. The patient can follow up with him. 1500: Updated the patient. 1501: Dilaudid 0.5 mg Iv. 1515: Augmentin 875 mg PO. 1515: Upon reevaluation, the patient is doing well.I discussed my findings with the patient and she understands and agrees with the treatment plan. Based on the patients age, coexisting illnesses, exam and lab findings the decision to treat as an outpatient was made. The patient remained stable while under my care. The patient appeared well at the time of discharge. Medical Decision Differential diagnosis includes lymph, parotid mass, mumps, abscess, cellulitis , hematoma. Patient is a 66-year-old female who presents the ER for swelling on right side of her face which started when she MORNING. She does report viral URI symptoms which have resolved along with fevers. Patient is no trouble eating or drink taking. CBC along with BMP was unremarkable. Chest x-ray was unremarkable. CT of the neck shows a 2 x 1.57 m heterogeneous enhancing nodule in the right parotid gland. This is suggestive of a warthin vs pleomorphic adenoma. Discussed the case with ENT. Updated patient. Per EMT I discharged her on Augmentin to have her follow-up in the office on Thursday. She has seen him before. Stressed the importance of following up as this could be cancerous. Discussed with Pt concerning signs and symptoms to watch out for. Pt was instructed to follow up with their PCP and discussed with the patient their option to return to the ED at anytime for persistent or worsening symptoms. The appropriate anticipatory guidance and out-patient management, including indications for return to the emergency department, were explained at length to the patient and understood. Consults Time Called: 1430 Consulting Physician: ENID Sarah Returned Call: [phone]: Discussed the case with ENID Sarah. The patient can follow up with him. Impression Primary Impression: Neck mass Scribe Attestation The scribe's documentation has been prepared under my direction and personally reviewed by me in its entirety. I confirm that the note above accurately reflects all work, treatment, procedures, and medical decision making performed by me. Departure Information Dispostion Home / Self-Care Prescriptions Amoxicillin & Pot Clavulanate (Augmentin 875-125 mg) 1 Tab Tab 875 MG PO BID for 10 Days, TAB Prov: Gonzalo Richard, DO 08/08/16 Referrals Conrad Mckeon D.O. (PCP) Forms HOME CARE DOCUMENTATION FORM, IMPORTANT VISIT INFORMATION, WORK / SCHOOL INSTRUCTIONS Patient Instructions My [facility] Additional Instructions Please follow up with your doctor DEREK from ENT on thursday. Any worsening of your symptoms, please return to the ED immediately. This includes trouble swallowing, trouble breathing, persistent fevers grade and 100.4, worsening pain , or any other concerning signs or symptoms from your stand point. The CT report reads as listed below. This should be followed up with ENT on Thursday. 1. There is a 1.9 x 1.6 cm heterogeneously enhancing nodule in the right parotid gland. This is pathologically indeterminant, and the top differential considerations include a Warthin tumor or possibly a pleomorphic adenoma. ENT follow-up is recommended.
[2016-09-07] MEDS ORDERED: PLV75 PO (14:31)
[2016-09-07] MEDS ORDERED: CZR50 PO (14:31)
[2016-09-07] MEDS ORDERED: OXYC-57 PO (14:31)
[2016-09-08] MEDS ORDERED: TPRSR25 PO (12:29)
[2016-09-08] MEDS ORDERED: PANT1TAB48 PO (12:48)
[2016-12-27] MEDS ORDERED: AMB5 PO (10:19)
[2016-12-27] MEDS ORDERED: SNQ50 PO (10:19)
[2016-12-27] MEDS ORDERED: ULT50X PO (10:19)
[2016-12-27] MEDS ORDERED: CZR50 PO (10:19)
[2017-01-20] MEDS ORDERED: LACT10CA3 PO (15:19)
[2017-01-20] MEDS ORDERED: CPR500 PO (15:19)
[2017-01-20] MEDS ORDERED: ATV1 PO (15:19)
[2017-01-20] MEDS ORDERED: TRAM-10 PO (15:19)
[2017-01-31] MEDS ORDERED: PEDI1CHW95 PO (10:51)
[2017-01-31] MEDS ORDERED: ONDA-63 PO (15:52)
[2017-01-31] MEDS ORDERED: PLV75 PO (15:52)
[2017-01-31] MEDS ORDERED: TPRSR/25 PO (15:52)
[2017-01-31] MEDS ORDERED: RGL/5 PO (15:52)
[2017-01-31] MEDS ORDERED: PRT/40 PO (15:52)
[2017-01-31] MEDS ORDERED: VNTHFA/IN INH (15:52)
[2017-01-31] MEDS ORDERED: SNQ/50 PO (15:52)
[2017-01-31] MEDS ORDERED: LOSA100T65 PO (15:52)
[2017-01-31] MEDS ORDERED: CYNI1000 IM (15:56)
[2017-01-31] MEDS ORDERED: FLUN0.02 NAE (17:48)
[2017-01-31] MEDS ORDERED: CYCL0.052 OPB (17:48)
[2017-01-31] MEDS ORDERED: BIOT10CA PO (17:48)
[2017-02-02] MEDS ORDERED: KFL250 PO (13:27)
== END 2016-08-08 15:31 | disposition home or self-care (01) ==
LOC: C.EDB 11:38 → C.EDC 15:31
DX: R22.1 Localized swelling, mass and lump, neck (principal); F41.9 Anxiety disorder, unspecified; J45.909 Unspecified asthma, uncomplicated; E11.9 Type 2 diabetes mellitus without complications; I10 Essential (primary) hypertension; Z86.73 Personal history of transient ischemic attack (TIA), and cerebral infarction without residual deficits; Z83.3 Family history of diabetes mellitus; Z83.79 Family history of other diseases of the digestive system; Z82.49 Family history of ischemic heart disease and other diseases of the circulatory system; Z79.82 Long term (current) use of aspirin; Z79.899 Other long term (current) drug therapy

== ENCOUNTER → 2016-08-14 | Outpatient (CLI) | payer MEDICARE, OTHER ==
[~2016-08-14] MED LIST changes: +ALBUAER INH; +AMB5 PO; +AMOX875T PO; +ATV/1 PO; +BIOT10CA PO; +CARI350T28 PO; +CEPH500C2 PO; +CHOL100041 PO; +CLOP1TAB15 PO; +CPR500 PO; +CYCL0.052 OPB; -CYCL10TA6 PO; +CYNI1000 IM; +CZR50 PO; +DOXE50CA3 PO; +EFFSR75 PO; +FLUN0.02 NAE; +FLUT0.15 NAE; +KFL250 PO; +LACT10CA3 PO; +LACT1CAP3 PO; +LOSA100T65 PO; +LOSA1TAB38 PO; +METO-157 PO; +METO25TA3 PO; +MULT-506 PO; +ONDA-63 PO; +ONDA4TAB10 SL; +OXYSR/20 PO; +PANT1TAB48 PO; +PANT40TA PO; +PEDI1CHW95 PO; +PLV75 PO; +PRMVC PV; +PRMVC TOP; +PROM25TA16 PO; +PROM25TA9 PO; +PRT/40 PO; +PRVHFAIN INH; +RGL/5 PO; +RXC5 PO; +SNQ/50 PO; +SNQ50 PO; +TEMA15CA4 PO; +TPRSR/25 PO; +TPRSR25 PO; +TRAM-10 PO; +ULT50 PO; +ULT50X PO; +VNTHFA/IN INH; +ZOLP5TAB6 PO
== END | disposition home or self-care (01) ==
LOC: C.PATH 08:35
PROVIDERS: ATTEND Otolaryngology
DX: D11.0 Benign neoplasm of parotid gland (principal)

== ENCOUNTER → 2016-09-04 | Outpatient (CLI) | payer MEDICARE, OTHER ==
[~2016-09-04] VITALS: Ht 160 cm; Wt 90.0 kg
[~2016-09-04] MED LIST changes: +ACETAMINOPHEN 500 MG TAB PO SCH; -AMOX875T PO; +CEFAZOLIN 2000 MG/60 ML D5W 60 ML IV SCH; +DEXAMETHASONE 4 MG TAB PO SCH; +FAMOTIDINE 20 MG TAB PO SCH; +GABAPENTIN 300 MG CAP PO SCH; +LACTATED RINGER'S 1000ML IV SCH; +METOCLOPRAMIDE HCL 10 MG TAB PO SCH; +PANT40TA2 PO; -PRT/40 PO; +VANCOMYCIN INJ 1,350 MG in SODIUM CHLORIDE 0.9% 250ML 250 ML IV SCH
[2016-09-04 13:37] LABS: PARTIAL THROMBOPLASTIN RATIO 0.9; PROTHROMBIN TIME (PATIENT) 10.6 SECONDS (9.0-12.0)
[2016-09-04 13:41] LABS: BASO % 0.2 %; BASO ABS # 0.01 K/uL (0-0.2); COMPLETE YES; EOS % 1.3 %; HEMATOCRIT 41.3 % (37-47); IG% 0.4 %; LYMPH % 27.3 %; LYMPH ABS # 1.44 K/uL (1.2-3.4); MEAN CELL VOLUME 92.6 fL (80-100); MEAN CORPUSCULAR HEMOGLOBIN 32.3 pg (25-34); MEAN CORPUSCULAR HGB CONC 34.9 g/dl (32-36); MEAN PLATELET VOLUME 9.3 fL (7.4-10.4); MONO % 9.3 %; NEUT % 61.5 %; PLATELET COUNT 270 K/uL (130-400); RED BLOOD COUNT 4.46 M/uL (4.2-5.4); WHITE BLOOD COUNT 5.27 K/uL (4.8-10.8)
[2016-09-04 13:54] LABS: BLOOD UREA NITROGEN 12 mg/dl (7-18); BUN/CREATININE RATIO 15.8 (10-20); C-REACTIVE PROTEIN < 0.29 mg/dl (0-0.29); CALCIUM 8.6 mg/dl (8.5-10.1); CARBON DIOXIDE 23 mmol/L (21-32); CHLORIDE 109 mmol/L (98-107); CREATININE 0.76 mg/dl (0.60-1.20); GLUCOSE 130 mg/dl (70-99); POTASSIUM 4.1 mmol/L (3.5-5.1); SODIUM 142 mmol/L (136-145)
[2016-09-04 13:56] LABS: URINE APPEARANCE TURBID (CLEAR); URINE BILIRUBIN NEG (NEG); URINE COLOR YELLOW; URINE NITRITE NEG (NEG); URINE SPECIFIC GRAVITY 1.023 (1.000-1.030); UROBILINOGEN NEG (NEG); ZZUR CULT IF INDIC CLEAN CATCH YES
[2016-09-04 14:03] LABS: ESTIMATED AVERAGE GLUCOSE 134 mg/dl; HA1C FLAG Normal (Normal); MANUAL MICROSCOPIC REQUIRED? NO; REVIEW REQ? YES
[2016-09-08 16:09] VITALS: Ht 160 cm; Wt 90.0 kg
--- NOTE | 2016-11-06 12:47 | CODING QUERY MEDICAL NECESSITY ---
CQSUPPORTING DIAGNOSIS NEEDED A supporting diagnosis is required for the test/procedure performed on this patient in order for us to be reimbursed by the patient's insurance. Please provide a supporting diagnosis for the following test/procedure listed below next to the test name along with your signature. *If there is no additional diagnosis for this patient that would support the following test/procedure please document that below next to the test/procedure. Test(s)/Procedure(s) that require a supporting diagnosis: DOS 09/04/16 GLYCATED HEMOGLOBIN URINE CULTURE Provider Signature: Date: Thank you Adriane Linares Health Information Management Once completed, please kindly fax back to [phone] For questions please call [phone]
== END | disposition home or self-care (01) ==
LOC: C.LAB 08:00 → EDSTATUS 09-24 10:30
PROVIDERS: ATTEND Orthopaedic Surgery Sports Medicine
DX: Z01.818 Encounter for other preprocedural examination (principal)

== ENCOUNTER 2016-09-06 11:47 | Inpatient (IN) | payer MEDICARE, OTHER ==
[~2016-09-06] VITALS: Ht 160 cm; Wt 104.0 kg
[~2016-09-06 11:47] MED LIST changes: -ACETAMINOPHEN 500 MG TAB PO SCH; -ALBUAER INH; -AMB5 PO; -ATV/1 PO; -BIOT10CA PO; -CARI350T28 PO; -CEFAZOLIN 2000 MG/60 ML D5W 60 ML IV SCH; -CEPH500C2 PO; -CHOL100041 PO; -CLOP1TAB15 PO; -CPR500 PO; -CYCL0.052 OPB; -CYNI1000 IM; -CZR50 PO; -DEXAMETHASONE 4 MG TAB PO SCH; -DOXE50CA3 PO; -EFFSR75 PO; -FAMOTIDINE 20 MG TAB PO SCH; -FLUN0.02 NAE; -FLUT0.15 NAE; -GABAPENTIN 300 MG CAP PO SCH; -KFL250 PO; -LACT10CA3 PO; -LACT1CAP3 PO; -LACTATED RINGER'S 1000ML IV SCH; -LOSA100T65 PO; -LOSA1TAB38 PO; -METO-157 PO; -METO25TA3 PO; -METOCLOPRAMIDE HCL 10 MG TAB PO SCH; -MULT-506 PO; -ONDA-63 PO; -ONDA4TAB10 SL; -OXYSR/20 PO; -PANT1TAB48 PO; -PANT40TA PO; -PANT40TA2 PO; -PEDI1CHW95 PO; -PLV75 PO; -PRMVC PV; -PRMVC TOP; -PROM25TA16 PO; -PROM25TA9 PO; -PRVHFAIN INH; -RGL/5 PO; -RXC5 PO; -SNQ/50 PO; -SNQ50 PO; -TEMA15CA4 PO; -TPRSR/25 PO; -TPRSR25 PO; -TRAM-10 PO; -ULT50 PO; -ULT50X PO; -VANCOMYCIN INJ 1,350 MG in SODIUM CHLORIDE 0.9% 250ML 250 ML IV SCH; -VNTHFA/IN INH; -ZOLP5TAB6 PO
[2016-09-06 13:03] LABS: BASO % 0.2 %; BASO ABS # 0.01 K/uL (0-0.2); COMPLETE YES; EOS % 1.7 %; HEMATOCRIT 39.7 % (37-47); IG% 0.4 %; LYMPH % 24.6 %; MEAN CORPUSCULAR HEMOGLOBIN 32.8 pg (25-34); MEAN CORPUSCULAR HGB CONC 35.3 g/dl (32-36); MONO % 9.1 %; PLATELET COUNT 246 K/uL (130-400); RED BLOOD COUNT 4.27 M/uL (4.2-5.4); WHITE BLOOD COUNT 5.29 K/uL (4.8-10.8)
--- NOTE | 2016-09-06 13:23 | EMERGENCY ROOM VISIT NOTE ---
History Report prepared by Tano: Viridiana Mcneal Under the Supervision of: Dr. Maria Fernanda Linares D.O. First contact with patient: 12:14 Chief Complaint: WEAKNESS Stated Complaint: WEAKNESS, UNABLE TO WALK, FALLS History of Present Illness The patient is a 66 year old female who presents to the Emergency Room with complaints of worsening bilateral lower extremity weakness that started yesterday afternoon. The patient states that she was going to close the bedroom window last night when she tripped or lost her balance and fell. She denies LOC and states that she remembers falling. The patient states that she hit her left shoulder when she fell. The patient states that the pain in her left shoulder radiates into her neck and all the way down her left arm. She is also experiencing left arm edema which she states is not new. She adds that her left shoulder was replaced in 2011 and "hasn't been right since." She is scheduled to have another surgery on her left shoulder on September 24. She is also experiencing a headache. The patient's states that the patient is also experiencing increased confusion that started last night. He also states that the patient's speech is worse than normal, but the patient states that her speech is worse because of her dentures and dry mouth. The patient's adds that the patient had a TIA last November and when she experienced that she experienced LOC. The patient's states that the patient experienced a similar fall with lower extremity weakness 3 weeks ago. The symptoms resolved the following day, but the patient did remember falling. The patient was evaluated by her PCP after. Her PCP suspected that the weakness was due to another TIA. 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 She states that the neuropathy is not worse than usual. She also states that she intermittently falls secondary to the neuropathy. The patient saw her PCP 2 days ago for pain in left shoulder. They performed x-rays and her states that she has been experiencing increased left shoulder pain since they moved her arm around for the x-ray. She adds that the fall made the pain in her left shoulder worse. Additionally, the patient had pneumonia last April and she was admitted to the hospital for 3 days. The patient has not experienced any significant respiratory symptoms since then with the exception of a dry cough. Source of History: patient, spouse/significant other () Onset: yesterday afternoon Position: leg (bilateral) Quality: other (lower extremity weakness) Timing: worsening Associated Symptoms: + cough (dry), + headache, + neck pain, No LOC Note: left shoulder pain, left arm edema, increased confusion, worsening speech, Review of Systems See HPI for pertinent positives & negatives. A total of 10 systems reviewed and were otherwise negative. Past Medical & Surgical Medical Problems: (1) Altered mental status (2) Anxiety (3) Asthma (4) C. 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 (14) Sacral back pain (15) Syncope Surgical Problems: (1) H/O spinal fusion Family History Diabetes mellitus Gallbladder disease Heart disease Hypertension Social History Smoking Status: Never Smoker Alcohol Use: none Marital Status: Housing Status: lives with significant other Occupation Status: unemployed Current/Historical Medications Scheduled Aspirin (Aspirin Ec), 81 MG PO QAM Biotin (Cvs Biotin), 10 MG PO DAILY Cholecalciferol (D 1000), 1 CAP PO TID Cyclosporine (Ophth) (Restasis), 1 DROPS OP BID Doxepin Hcl (Doxepin), 150 MG PO QPM Doxepin Hcl (Doxepin), 75 MG PO QAM Ergocalciferol (Vitamin D), 50,000 INTER.UNIT PO 3XWK Estrogens, Conjugated (Premarin), 0.5 GM TOP 3XWK Lorazepam (Lorazepam), 1 MG PO QAM Metoclopramide (Reglan), 10 MG PO AC Omeprazole (Prilosec), 40 MG PO QAM Oxycodone/Acetaminophen 5MG/325MG (Percocet 5MG/325MG), 1 TABLET PO QID Pediatric Multiple Vitamin W/ (Multivitamin Gummies Chil), 1 TAB PO QAM Scheduled PRN Albuterol (Ventolin Hfa), 2 PUFFS INH Q4 PRN for SOB/Wheezing Carisoprodol (Soma), 350 MG PO BID PRN for Pain Flunisolide (Nasal) (Flunisolide), 2 SPRY SALOMÓN DAILY PRN for allergies Promethazine Hcl (Phenergan Suppository), 25 MG LA Q6H PRN for Nausea Promethazine Hcl (Phenergan), 25 MG PO Q6H PRN for Nausea Temazepam (Temazepam), 15 MG PO HS PRN for Sleep Allergies Coded Allergies: Atorvastatin (Verified Allergy, Unknown, myalgias per PCP note , 09/06/16) CI Pigment Blue 63 (Verified Adverse Reaction, Mild, PSYCHOSIS, 09/06/16) Duloxetine (Verified Adverse Reaction, Mild, PSYCHOSIS, 09/06/16) Gabapentin (Verified Adverse Reaction, Mild, PSYCHOSIS, 09/06/16) Morphine (Verified Adverse Reaction, Mild, NAUSEA, 09/06/16) NSAIDs (Verified Adverse Reaction, Unknown, s/p bariatric surgery, 09/06/16 ) per gmg Physical Exam Vital Signs Date Time Temp Pulse Resp B/P Pulse Ox O2 Delivery O2 Flow Rate FiO2 09/06/16 17:20 96 Room Air 09/06/16 15:00 83 17 179/105 97 Room Air 09/06/16 11:53 36.9 99 20 161/99 94 Room Air Physical Exam GENERAL: alert, well appearing, well nourished, no distress, non-toxic EYE EXAM: normal conjunctiva, PERRL and EOM's grossly intact OROPHARYNX: no exudate, no erythema, lips, buccal mucosa, and tongue normal and mucous membranes are moist NECK: supple, no nuchal rigidity, no adenopathy, non-tender LUNGS: Clear to auscultation. Normal chest wall mechanics HEART: no murmurs, S1 normal and S2 normal ABDOMEN: abdomen soft, non-tender, normo-active bowel sounds, no masses, no rebound or guarding. BACK: Back is symmetrical on inspection and there is no deformity, no midline tenderness, no CVA tenderness. SKIN: no rashes and no bruising UPPER EXTREMITIES: pain over the humeral head of left shoulder prior with prior well-healed surgical scar, decreased range of motion of left shoulder, no appreciable increased edema of left arm. LOWER EXTREMITIES: No pitting edema. NEURO EXAM: Normal sensorium, cranial nerves II-XII intact, normal speech, no facial droop, no gross weakness of arms, no weakness of legs. No drift. Finger to nose intact. Gross sensation intact. GCS: 15 Medical Decision & Procedures ER Provider Diagnostic Interpretation: Xray results per the radiologist and my interpretation. Other results have been interpreted by the radiologist and reviewed by me. LEFT SHOULDER MIN 2 VIEWS ROUTINE IMPRESSION: Degenerative and postoperative change. No acute process. No change from the prior exam. Electronically signed by: Alonso Rivera M.D. 09/06/2016 1:23 PM Dictated Date/Time: 09/06/2016 1:[address] NONCONTRAST Impression: No acute intracranial abnormality. Electronically signed by: Alonso Rivera M.D. 09/06/2016 2:36 PM Dictated Date/Time: 09/06/2016 2:[address] IMPRESSION: No fractures within the cervical spine. Considerable degenerative change. Electronically signed by: Alonso Rivera M.D. 09/06/2016 3:07 PM Dictated Date/Time: 09/06/2016 3:06 PM Laboratory Results 09/06/16 12:52 Red Blood Count 4.27, Mean Corpuscular Volume 93.0, Mean Corpuscular Hemoglobin 32.8, Mean Corpuscular Hemoglobin Concent 35.3, Mean Platelet Volume 9.0, Neutrophils (%) (Auto) 64.0, Lymphocytes (%) (Auto) 24.6, Monocytes (%) (Auto) 9.1, Eosinophils (%) (Auto) 1.7, Basophils (%) (Auto) 0.2, Neutrophils # (Auto) 3.39, Lymphocytes # (Auto) 1.30, Monocytes # (Auto) 0.48, Eosinophils # (Auto) 0.09, Basophils # (Auto) 0.01 09/06/16 12:52 Test 09/06/16 00:00 09/06/16 12:52 Urine Color YELLOW Urine Appearance CLEAR (CLEAR) Urine pH 6.5 (4.5-7.5) Urine Specific [place] 1.010 (1.000-1.030) Urine Protein NEG (NEG) Urine Glucose (UA) NEG (NEG) Urine Ketones NEG (NEG) Urine Occult Blood NEG (NEG) Urine Nitrite NEG (NEG) Urine Bilirubin NEG (NEG) Urine Urobilinogen NEG (NEG) Urine Leukocyte Esterase TRACE (NEG) Urine RBC 0-4 /hpf (0-4) Urine WBC 0 /hpf (0-5) Urine Epithelial Cells 5-10 /lpf (0-5) Urine Bacteria NEG (NEG) White Blood Count 5.29 K/uL (4.8-10.8) Red Blood Count 4.27 M/uL (4.2-5.4) Hemoglobin 14.0 g/dL (12.0-16.0) Hematocrit 39.7 % (37-47) Mean Corpuscular Volume 93.0 fL (80-100) Mean Corpuscular Hemoglobin 32.8 pg (25-34) Mean Corpuscular Hemoglobin Concent 35.3 g/dl (32-36) Platelet Count 246 K/uL (130-400) Mean Platelet Volume 9.0 fL (7.4-10.4) Neutrophils (%) (Auto) 64.0 % Lymphocytes (%) (Auto) 24.6 % Monocytes (%) (Auto) 9.1 % Eosinophils (%) (Auto) 1.7 % Basophils (%) (Auto) 0.2 % Neutrophils # (Auto) 3.39 K/uL (1.4-6.5) Lymphocytes # (Auto) 1.30 K/uL (1.2-3.4) Monocytes # (Auto) 0.48 K/uL (0.11-0.59) Eosinophils # (Auto) 0.09 K/uL (0-0.5) Basophils # (Auto) 0.01 K/uL (0-0.2) RDW Standard Deviation 49.6 fL (36.4-46.3) RDW Coefficient of Variation 14.7 % (11.5-14.5) Immature Granulocyte % (Auto) 0.4 % Immature Granulocyte # (Auto) 0.02 K/uL (0.00-0.02) D-Dimer 360 ug/L FEU (0-500) Anion Gap 9.0 mmol/L (3-11) Estimated GFR () 108.7 Estimated GFR (Non- 93.8 BUN/Creatinine Ratio 20.8 (10-20) Calcium Level 8.9 mg/dl (8.5-10.1) Magnesium Level 2.1 mg/dl (1.8-2.4) Total Bilirubin 0.4 mg/dl (0.2-1) Aspartate Amino Transf (AST/SGOT) 10 U/L (15-37) Alanine Aminotransferase (ALT/SGPT) 14 U/L (12-78) Alkaline Phosphatase 122 U/L (45-117) Troponin I < 0.015 ng/ml (0-0.045) Total Protein 6.0 gm/dl (6.4-8.2) Albumin 3.3 gm/dl (3.4-5.0) Globulin 2.7 gm/dl (2.5-4.0) Albumin/Globulin Ratio 1.2 (0.9-2) Laboratory results per my review. Medications Administered Medications (Trade) Dose Ordered Sig/Valente Route Start Time Stop Time Status Last Admin Dose Admin Oxycodone/ Acetaminophen (Percocet 5-325mg Tab) 1 tab ONE STAT PO 09/06/16 14:57 09/06/16 14:58 DC 09/06/16 15:19 1 TAB ECG Indication: weakness Rate (beats per minute): 81 Rhythm: sinus rhythm Findings: no acute ischemic change, no ectopy, other (normal axis, normal intervals) ED Course 1224: The patient was evaluated in room B2. A complete history and physical exam was performed. 1457: Ordered Oxycodone/Acetaminophen 1 tab PO 1555: Upon reevaluation, the patient is resting comfortably. She is feeling a little better, but she does not feel that she is totally back to her baseline. I discussed the findings and the treatment plan with the patient. She expresses agreement and understanding. She will be evaluated for further management. 1615: I reviewed the patient's case with Fay Mosqueda. She will evaluate the patient for further management. Medical Decision Differential diagnosis: Etiologies such as trauma, CVA/TIA, dehydration, electrolyte abnormality, worsening neuropathy, as well as others were entertained. Concern that pt's sx didn't totally resolve. Pt states feeling improved,but given hx of cva/tia, admitted for additional work up. Doubt infectous etiology. Consults Time Called: 1613 Consulting Physician: Fay Mosqueda Returned Call: 1615 I reviewed the patient's case with Fay Mosqueda. She will evaluate the patient for further management. Impression Primary Impression: Weakness Additional Impressions: Slurred speech Ambulatory dysfunction Scribe Attestation The scribe's documentation has been prepared under my direction and personally reviewed by me in its entirety. I confirm that the note above accurately reflects all work, treatment, procedures, and medical decision making performed by me. Departure Information Dispostion Being Evaluated By Hospitalist Referrals No Doctor, Assigned (PCP) Patient Instructions My [facility] Problem Qualifiers
--- NOTE | 2016-09-06 13:24 | DIAGNOSTIC IMAGING REPORT ---
LEFT SHOULDER MIN 2 VIEWS ROUTINE CLINICAL HISTORY: fall, pain COMPARISON: 07/08/2016 DISCUSSION: Degenerative change combined with a total joint arthroplasty unchanged in appearance compared to the prior exam. Slight superior migration of the metallic prosthetic in relation to the glenoid but this is unchanged in the prior exam. No new or interval findings are present. IMPRESSION: Degenerative and postoperative change. No acute process. No change from the prior exam. Electronically signed by: Alonso Rivera M.D. 09/06/2016 1:23 PM Dictated Date/Time: 09/06/2016 1:21 PM
[2016-09-06 13:32] LABS: ALT/SGPT 14 U/L (12-78); BLOOD UREA NITROGEN 13 mg/dl (7-18); BUN/CREATININE RATIO 20.8 (10-20); CALCIUM 8.9 mg/dl (8.5-10.1); CARBON DIOXIDE 27 mmol/L (21-32); CHLORIDE 105 mmol/L (98-107); CREATININE 0.61 mg/dl (0.60-1.20); GLUCOSE 113 mg/dl (70-99); MAGNESIUM 2.1 mg/dl (1.8-2.4); POTASSIUM 4.2 mmol/L (3.5-5.1); SODIUM 141 mmol/L (136-145)
[2016-09-06 13:36] LABS: ALB/GLOB RATIO 1.2 (0.9-2); ALKALINE PHOSPHATASE 122 U/L (45-117); AST/SGOT 10 U/L (15-37)
--- NOTE | 2016-09-06 14:38 | DIAGNOSTIC IMAGING REPORT ---
HEAD CT NONCONTRAST CT DOSE: HISTORY: Trauma fall, weakness TECHNIQUE: Multiaxial CT images of the head were performed without the use of intravenous contrast. Comparison: 07/08/2016 Findings: The paranasal sinuses and mastoid air cells are clear. The calvarium and skull base are intact. The ventricles and sulci are within normal limits. There is no mass, hematoma, midline shift, or acute infarct. Impression: No acute intracranial abnormality. Electronically signed by: Alonso Rivera M.D. 09/06/2016 2:36 PM Dictated Date/Time: 09/06/2016 2:35 PM
[2016-09-06 14:41] LABS: MANUAL MICROSCOPIC REQUIRED? YES; URINE APPEARANCE CLEAR (CLEAR); URINE BILIRUBIN NEG (NEG); URINE COLOR YELLOW; URINE NITRITE NEG (NEG); URINE PH 6.5 (4.5-7.5); UROBILINOGEN NEG (NEG)
[2016-09-06 14:45] LABS: REVIEW REQ? NO
[2016-09-06] MEDS ORDERED: OXYCODONE/ACETAMINOPHEN 5-325 TAB PO STA (14:57)
[2016-09-06 14:59] LABS: URINE BACTERIA NEG (NEG); URINE RBC 0-4 /hpf (0-4); URINE WBC 0 /hpf (0-5); ZZUR CULT IF INDIC CLEAN CATCH NO
--- NOTE | 2016-09-06 15:09 | DIAGNOSTIC IMAGING REPORT ---
CERVICAL SPINE CT CT DOSE: 1263.05 mGy.cm HISTORY: Trauma fall, weakness TECHNIQUE: Multiaxial CT images of the cervical spine were performed and reformatted in the sagittal and coronal plane without the use of contrast. COMPARISON: None. FINDINGS: Considerable degenerative change throughout the entire cervical region. No evidence for an acute compression deformity. Posterior elements are intact. C1-C2 complex is unremarkable. IMPRESSION: No fractures within the cervical spine. Considerable degenerative change. Electronically signed by: Alonso Rivera M.D. 09/06/2016 3:07 PM Dictated Date/Time: 09/06/2016 3:06 PM
[2016-09-06 17:20] VITALS: O2SAT 96; BMI 40.4
[2016-09-06] MEDS ORDERED: CLOPIDOGREL BISULFATE 75 MG TAB PO ONE (17:30)
[2016-09-06] MEDS ORDERED: ONDANSETRON INJ 2 MG/ML 2 ML VIAL IV PRN (17:30)
[2016-09-06] MEDS ORDERED: PHARMACIST DISCHARGE MED REC CONSULT PRN (17:30)
[2016-09-06] MEDS ORDERED: ACETAMINOPHEN 325 MG TAB PO PRN (17:30)
[2016-09-06 17:35] VITALS: Ht 160 cm; Wt 104.0 kg
[2016-09-06] MEDS ORDERED: PROM25TA9 PO (17:48)
[2016-09-06] MEDS ORDERED: PRVHFAIN INH (17:48)
[2016-09-06] MEDS ORDERED: METO-157 PO (17:48)
[2016-09-06] MEDS ORDERED: CHOL100041 PO (17:48)
[2016-09-06] MEDS ORDERED: PRMVC TOP (17:48)
[2016-09-06] MEDS ORDERED: CARI350T28 PO (17:48)
[2016-09-06] MEDS ORDERED: CLOPIDOGREL BISULFATE 75 MG TAB ONE (17:50)
[2016-09-06] MEDS ORDERED: ALBUTEROL HFA 8 GM INHALER INH PRN (18:00)
[2016-09-06] MEDS ORDERED: DEXTROSE 50% 50 ML SYR IV PRN (18:00)
[2016-09-06] MEDS ORDERED: GLUCOSE 10 TABS/TUBE PO PRN (18:00)
[2016-09-06] MEDS ORDERED: FLUNISOLIDE NAE PRN (18:00)
[2016-09-06] MEDS ORDERED: GLUCOSE 40% GEL 15 GM TUBE PO PRN (18:00)
[2016-09-06] MEDS ORDERED: PROMETHAZINE HCL 25 MG SUPP PR PRN (18:00)
[2016-09-06] MEDS ORDERED: GLUCAGON FOR INJ 1 MG VIAL SQ PRN (18:00)
[2016-09-06] MEDS ORDERED: CARISOPRODOL 350 MG TAB PO PRN (18:00)
[2016-09-06 18:08] VITALS: BP 187/133; PULSE 96; TEMP 37.2; O2SAT 96
[2016-09-06] MEDS ORDERED: OXYCODONE/ACETAMINOPHEN 5-325 TAB ONE (18:26)
[2016-09-06] MEDS ORDERED: NURSING VERBAL MED ORDER ONE (18:30)
[2016-09-06] MEDS ORDERED: HydrALAZINE HCL 20 MG/ML VIAL IV. PRN (18:45)
--- NOTE | 2016-09-06 19:37 | DIAGNOSTIC IMAGING REPORT ---
BILATERAL CAROTID DOPPLER STUDY HISTORY: Mental status change Stroke COMPARISON: None. TECHNIQUE: Real-time, grayscale, and color Doppler sonography of the carotid arteries was performed. Imaging reviewed in the transverse and longitudinal planes. All measurements were calculated based on NASCET criteria. FINDINGS: Antegrade flow is seen in the bilateral vertebral arteries. The brachial pressures are hemodynamically similar. Moderate plaque formation bilaterally The peak systolic velocity within the right ICA is 41. The right systolic ratio is 0.5. The peak systolic velocity within the left ICA is 36. The left systolic ratio is 0.4. IMPRESSION: No hemodynamically significant stenosis seen within the carotid arteries. Mild plaque formation bilaterally Electronically signed by: Alonso Rivera M.D. 09/06/2016 7:36 PM Dictated Date/Time: 09/06/2016 7:35 PM
--- NOTE | 2016-09-06 20:07 | DIAGNOSTIC IMAGING REPORT ---
Brain MRI WITHOUT CONTRAST HISTORY: Mental status change Stroke TECHNIQUE: Multiplanar multisequence MRI of the brain was performed without the use of contrast. COMPARISON STUDY: None. FINDINGS: There are no areas of restricted diffusion to suggest acute infarction. The midline structures are intact. The paranasal sinuses are clear. The mastoid air cells are clear. The ventricles and sulci are within normal limits for age. There is no mass, hematoma, midline shift. The major vascular flow-voids at the skull base are well maintained. Several small foci of increased signal within the periventricular deep white matter regions consistent with chronic small vessel change of aging. IMPRESSION: No acute intracranial abnormality. Chronic age-related change. Electronically signed by: Alonso Rivera M.D. 09/06/2016 8:06 PM Dictated Date/Time: 09/06/2016 8:04 PM
[2016-09-06] MEDS ORDERED: IV FLUIDS COMPLETED PRN (20:15)
--- NOTE | 2016-09-06 20:25 | DIAGNOSTIC IMAGING REPORT ---
Brain MRA HISTORY: Mental status change Stroke - Attention to [place] TECHNIQUE: 3-D [id number] MRA of the brain was performed without contrast. COMPARISON STUDY: None. FINDINGS: Visualized intracranial internal carotid arteries, distal vertebral arteries, and basilar artery are widely patent. There is no significant stenosis, occlusion, or aneurysm seen within the bilateral ACAs, MCAs, or double ending machine operator. IMPRESSION: No significant stenosis, occlusion, or aneurysm within the [place]. Electronically signed by: Alonso Rivera M.D. 09/06/2016 8:24 PM Dictated Date/Time: 09/06/2016 8:23 PM
[2016-09-06] MEDS: RESTASIS~ORDER AWAITING ACTION SCH (20:29)
[2016-09-06 20:45] VITALS: O2SAT 96
[2016-09-06] MEDS: PROMETHAZINE HCL 25 MG TAB PO PRN (20:53)
[2016-09-06] MEDS: CHOLECALCIFEROL 1000 INTER.UNIT TAB PO SCH (20:54)
[2016-09-06] MEDS: DOXEPIN HCL 75 MG CAP PO SCH (20:55)
[2016-09-06] MEDS: ENOXAPARIN 40 MG/0.4 ML SYR SC SCH (20:56)
[2016-09-06] MEDS: INSULIN ASPART 100 UNITS/ML 3 ML PEN SC SCH (20:57)
[2016-09-06] MEDS: MoRPHine SULFATE 2 MG/ML CARP IV PRN ×2 (20:57→21:06)
[2016-09-06] MEDS ORDERED: CYCLOSPORINE OP SCH (21:00)
--- NOTE | 2016-09-06 21:31 | History and Physical ---
History & Physical Date & Time of Service: Sep 06, 2016 at 17:58 Chief Complaint: Weakness, Unable To Walk, Falls Primary Care Physician: Conrad Mckeon D.O. History of Present Illness Source: patient, spouse This is a 66 year old female with PMH of TIA, hypertension, DM type 2, obesity, and other problems listed below who presents to the ED with confusion, ambulatory dysfunction, and speech abnormality. Patient had a TIA on 11/24/2015 at [facility] and transferred to [facility]. She was treated with tPA with resolution of her symptoms. Her prior CVA workup was essentially unremarkable except for mild abnormality on echo. She was seen in f/u by [facility] neurology but planned to re- establish with Dr. Taylor in the future. Approx 3 weeks ago she was treated for parotid gland infection right sided by Dr. Cadet with Augmentin x 10 days with improvement. Then approx 2 weeks ago pt had an episode of confusion and fell ambulating to the restroom. She was not evaluated at that time but symptoms resolved quickly. Then starting yesterday afternoon reports progressive generalized weakness, ambulatory dysfunction, abnormal unintelligible speech, and confusion. Pt usually ambulates unassisted but at home she was unable to ambulate without extensive assistance. Patient fell once last night and once this morning but she does not accurately remember the details. did not witness the falls but heard a thump from the next room. Last night she fell out of bed and this morning when ambulating in the bedroom. No definite head trauma. No reported LOC. She fell onto her left shoulder which exacerbated her chronic pain for which she takes Percocet QID chronically. states patient's recall of recent events is usually intact, but today she is having trouble recalling events of past 24 hours. Once patient arrived to the ER her generalized weakness and speech abnormality have resolved to baseline per , but he states her mental status is still off from baseline. Pt is oriented to person and place but is slightly off on the date which he states is abnormal for her. Pt has chronic visual difficulties related to dry eyes but denies any change from baseline. Pt denies fevers, chills, headache, swallowing difficulty, facial droop, focal numbness or weakness, chest pain, SOB, abdominal pain, vomiting, diarrhea, urinary changes. Past Medical/Surgical History Medical Problems: (1) Anxiety Status: Chronic (2) Asthma Status: Chronic (3) C. difficile diarrhea Status: Resolved (4) DM2 (diabetes mellitus, type 2) Status: Chronic (5) GERD (gastroesophageal reflux disease) Status: Chronic (6) Hyperlipidemia Status: Chronic (7) Hypertension Status: Chronic (8) Morbid obesity Status: Chronic (9) Sacral back pain Status: Chronic Surgical Problems: (1) H/O gastric bypass Status: Chronic (2) H/O hernia repair Status: Chronic (3) H/O spinal fusion Status: Chronic (4) History of carpal tunnel surgery Status: Chronic (5) Previous section Status: Resolved (6) S/P appendectomy Status: Chronic (7) S/P cholecystectomy Status: Resolved (8) S/p left shoulder surgery Status: Chronic (9) S/P parathyroidectomy Status: Resolved (10) S/P tonsillectomy and adenoidectomy Status: Chronic (11) Total knee replacement status Status: Resolved Family History Diabetes mellitus Gallbladder disease Heart disease Hypertension Social History Smoking Status: Never Smoker Alcohol Use: 1 drink per day Drug Use: none Marital Status: Housing status: lives with significant other Immunizations History of Influenza Vaccine: Yes Influenza Vaccine Date: Apr 18, 2013 History of Tetanus Vaccine?: Yes History of Pneumococcal: Yes History of Hepatitis B Vaccine: Yes Multi-Drug Resistant Organisms History of MDRO: No Allergies Coded Allergies: Atorvastatin (Verified Allergy, Unknown, myalgias per PCP note , 09/06/16) CI Pigment Blue 63 (Verified Adverse Reaction, Mild, PSYCHOSIS, 09/06/16) Duloxetine (Verified Adverse Reaction, Mild, PSYCHOSIS, 09/06/16) Gabapentin (Verified Adverse Reaction, Mild, PSYCHOSIS, 09/06/16) Morphine (Verified Adverse Reaction, Mild, NAUSEA, 09/06/16) NSAIDs (Verified Adverse Reaction, Unknown, s/p bariatric surgery, 09/06/16 ) per gmg Home Medications Scheduled Aspirin (Aspirin Ec), 81 MG PO QAM Biotin (Cvs Biotin), 10 MG PO DAILY Cholecalciferol (D 1000), 1 CAP PO TID Cyclosporine (Ophth) (Restasis), 1 DROPS OP BID Doxepin Hcl (Doxepin), 150 MG PO QPM Doxepin Hcl (Doxepin), 75 MG PO QAM Ergocalciferol (Vitamin D), 50,000 INTER.UNIT PO 3XWK Estrogens, Conjugated (Premarin), 0.5 GM TOP 3XWK Lorazepam (Lorazepam), 1 MG PO QAM Metoclopramide (Reglan), 10 MG PO AC Omeprazole (Prilosec), 40 MG PO QAM Oxycodone/Acetaminophen 5MG/325MG (Percocet 5MG/325MG), 1 TABLET PO QID Pediatric Multiple Vitamin W/ (Multivitamin Gummies Chil), 1 TAB PO QAM Scheduled PRN Albuterol (Ventolin Hfa), 2 PUFFS INH Q4 PRN for SOB/Wheezing Carisoprodol (Soma), 350 MG PO BID PRN for Pain Flunisolide (Nasal) (Flunisolide), 2 SPRY SALOMÓN DAILY PRN for allergies Promethazine Hcl (Phenergan Suppository), 25 MG ID Q6H PRN for Nausea Promethazine Hcl (Phenergan), 25 MG PO Q6H PRN for Nausea Temazepam (Temazepam), 15 MG PO HS PRN for Sleep Review of Systems Ten point ROS performed with pertinent positives and negatives noted in HPI. Physical Exam Vital Signs Date Time Temp Pulse Resp B/P Pulse Ox O2 Delivery O2 Flow Rate FiO2 09/06/16 17:46 78 17 168/97 96 Room Air 09/06/16 17:20 96 Room Air 09/06/16 15:00 83 17 179/105 97 Room Air 09/06/16 11:53 36.9 99 20 161/99 94 Room Air General Appearance: WD/WN, no apparent distress Head: normocephalic, atraumatic Eyes: normal inspection, PERRL, EOMI ENT: hearing grossly normal, pharynx normal, + pertinent finding (mild right parotid swelling) Neck: supple, no carotid bruits, trachea midline Respiratory/Chest: lungs clear, normal breath sounds, no respiratory distress Cardiovascular: regular rate, rhythm, no murmur Abdomen/GI: normal bowel sounds, non tender, soft Extremities/Musculoskelatal: no calf tenderness, no pedal edema, + pertinent finding (left shoulder pain with range of motion) Neurologic/Psych: 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 poor recall of recent events. gait is normal. strength 5/5 all extremities. no sensory deficit to light touch. ) Skin: normal color, warm/dry Diagnostics Laboratory Results Results Past 24 Hours Test 09/06/16 00:00 09/06/16 12:52 Range/Units Urine Color YELLOW Urine Appearance CLEAR CLEAR Urine pH 6.5 4.5-7.5 Urine Specific [place] 1.010 1.000-1.030 Urine Protein NEG NEG Urine Glucose (UA) NEG NEG Urine Ketones NEG NEG Urine Occult Blood NEG NEG Urine Nitrite NEG NEG Urine Bilirubin NEG NEG Urine Urobilinogen NEG NEG Urine Leukocyte Esterase TRACE NEG Urine RBC 0-4 0-4 /hpf Urine WBC 0 0-5 /hpf Urine Epithelial Cells 5-10 0-5 /lpf Urine Bacteria NEG NEG White Blood Count 5.29 4.8-10.8 K/uL Red Blood Count 4.27 4.2-5.4 M/uL Hemoglobin 14.0 12.0-16.0 g/dL Hematocrit 39.7 37-47 % Mean Corpuscular Volume 93.0 80-100 fL Mean Corpuscular Hemoglobin 32.8 25-34 pg Mean Corpuscular Hemoglobin Concent 35.3 32-36 g/dl Platelet Count 246 130-400 K/uL Mean Platelet Volume 9.0 7.4-10.4 fL Neutrophils (%) (Auto) 64.0 % Lymphocytes (%) (Auto) 24.6 % Monocytes (%) (Auto) 9.1 % Eosinophils (%) (Auto) 1.7 % Basophils (%) (Auto) 0.2 % Neutrophils # (Auto) 3.39 1.4-6.5 K/uL Lymphocytes # (Auto) 1.30 1.2-3.4 K/uL Monocytes # (Auto) 0.48 0.11-0.59 K/uL Eosinophils # (Auto) 0.09 0-0.5 K/uL Basophils # (Auto) 0.01 0-0.2 K/uL RDW Standard Deviation 49.6 36.4-46.3 fL RDW Coefficient of Variation 14.7 11.5-14.5 % Immature Granulocyte % (Auto) 0.4 % Immature Granulocyte # (Auto) 0.02 0.00-0.02 K/uL D-Dimer 360 0-500 ug/L FEU Sodium Level 141 136-145 mmol/L Potassium Level 4.2 3.5-5.1 mmol/L Chloride Level 105 98-107 mmol/L Carbon Dioxide Level 27 21-32 mmol/L Anion Gap 9.0 3-11 mmol/L Blood Urea Nitrogen 13 7-18 mg/dl Creatinine 0.61 0.60-1.20 mg/dl Estimated GFR () 108.7 Estimated GFR (Non- 93.8 BUN/Creatinine Ratio 20.8 10-20 Random Glucose 113 70-99 mg/dl Calcium Level 8.9 8.5-10.1 mg/dl Magnesium Level 2.1 1.8-2.4 mg/dl Total Bilirubin 0.4 0.2-1 mg/dl Aspartate Amino Transf (AST/SGOT) 10 15-37 U/L Alanine Aminotransferase (ALT/SGPT) 14 12-78 U/L Alkaline Phosphatase 122 45-117 U/L Troponin I < 0.015 0-0.045 ng/ml Total Protein 6.0 6.4-8.2 gm/dl Albumin 3.3 3.4-5.0 gm/dl Globulin 2.7 2.5-4.0 gm/dl Albumin/Globulin Ratio 1.2 0.9-2 Diagnostic Radiology LEFT SHOULDER MIN 2 VIEWS ROUTINE CLINICAL HISTORY: fall, pain COMPARISON: 07/08/2016 DISCUSSION: Degenerative change combined with a total joint arthroplasty unchanged in appearance compared to the prior exam. Slight superior migration of the metallic prosthetic in relation to the glenoid but this is unchanged in the prior exam. No new or interval findings are present. IMPRESSION: Degenerative and postoperative change. No acute process. No change from the prior exam. HEAD CT NONCONTRAST CT DOSE: HISTORY: Trauma fall, weakness TECHNIQUE: Multiaxial CT images of the head were performed without the use of intravenous contrast. Comparison: 07/08/2016 Findings: The paranasal sinuses and mastoid air cells are clear. The calvarium and skull base are intact. The ventricles and sulci are within normal limits. There is no mass, hematoma, midline shift, or acute infarct. Impression: No acute intracranial abnormality. CERVICAL SPINE CT CT DOSE: 1263.05 mGy.cm HISTORY: Trauma fall, weakness TECHNIQUE: Multiaxial CT images of the cervical spine were performed and reformatted in the sagittal and coronal plane without the use of contrast. COMPARISON: None. FINDINGS: Considerable degenerative change throughout the entire cervical region. No evidence for an acute compression deformity. Posterior elements are intact. C1-C2 complex is unremarkable. IMPRESSION: No fractures within the cervical spine. Considerable degenerative change. Brain MRA HISTORY: Mental status change Stroke - Attention to [place] TECHNIQUE: 3-D [id number] MRA of the brain was performed without contrast. COMPARISON STUDY: None. FINDINGS: Visualized intracranial internal carotid arteries, distal vertebral arteries, and basilar artery are widely patent. There is no significant stenosis, occlusion, or aneurysm seen within the bilateral ACAs, MCAs, or electrician maintenance. IMPRESSION: No significant stenosis, occlusion, or aneurysm within the [place]. BILATERAL CAROTID DOPPLER STUDY HISTORY: Mental status change Stroke COMPARISON: None. TECHNIQUE: Real-time, grayscale, and color Doppler sonography of the carotid arteries was performed. Imaging reviewed in the transverse and longitudinal planes. All measurements were calculated based on NASCET criteria. FINDINGS: Antegrade flow is seen in the bilateral vertebral arteries. The brachial pressures are hemodynamically similar. Moderate plaque formation bilaterally The peak systolic velocity within the right ICA is 41. The right systolic ratio is 0.5. The peak systolic velocity within the left ICA is 36. The left systolic ratio is 0.4. IMPRESSION: No hemodynamically significant stenosis seen within the carotid arteries. Mild plaque formation bilaterally Brain MRI WITHOUT CONTRAST HISTORY: Mental status change Stroke TECHNIQUE: Multiplanar multisequence MRI of the brain was performed without the use of contrast. COMPARISON STUDY: None. FINDINGS: There are no areas of restricted diffusion to suggest acute infarction. The midline structures are intact. The paranasal sinuses are clear. The mastoid air cells are clear. The ventricles and sulci are within normal limits for age. There is no mass, hematoma, midline shift. The major vascular flow-voids at the skull base are well maintained. Several small foci of increased signal within the periventricular deep white matter regions consistent with chronic small vessel change of aging. IMPRESSION: No acute intracranial abnormality. Chronic age-related change. EKG NSR, no significant change from prior EKG as per cardiology read Impression Assessment and Plan ALTERED MENTAL STATUS/ GENERALIZED WEAKNESS/ SPEECH DIFFICULTY Question of TIA; Rule out CVA given prior history of TIA treated with tPA in 2015; prior CVA workup essentially unremarkable except for mild abnormality on echo CT head- no acute findings; check MRI brain- neg, MRA head- neg, carotid doppler - neg, echo with bubble study Will continue aspirin and add Plavix Neuro checks PT, OT, speech evaluations Seen in f/u by [facility] neuro but plans to reestablish with Dr. Taylor Consult neurology- Dr. Taylor HYPERTENSION BP elevated in ER, likely secondary to significant left shoulder pain Will attempt pain control which will hopefully reduce the blood pressure Continue losartan CHRONIC LEFT SHOULDER PAIN Follows with Dr. Funes- planned for surgery this September shoulder x-ray no fracture, + chronic degenerative and postoperative change Continue home Percocet PRN; 1 time dose of morphine ordered PRN pain uncontrolled with Percocet DM TYPE 2 Not on medication Insulin sliding scale coverage Check A1c in am DYSLIPIDEMIA Did not tolerate Crestor or Lipitor in the past due to muscle pains Check fasting lipid panel in am DVT PROPHYLAXIS Lovenox SQ CODE STATUS Full code per my discussion with the patient DISPOSITION Lives at home Follows with Dr. Mckeon for primary care Patient seen in collaboration with Dr. Pinto. Please see her addendum. I have seen, examined and discussed this patient with Berkley Mena and I agree with the above note. Patient presents with confusion and generalized weakness. H/o TIA in November 2015. Vitals notable for elevated blood pressure. PE: General- awake; alert; NAD Eyes- EOMI; no scleral icterus; PERRL ENT- clear OC/OP Neck- no stridor; trachea midline Lungs- CTA bilaterally; no wheezes/crackles Heart- RRR; no m/r/g Abdomen- soft; NTND; nBS Back- no gross abnormalities Extremities- no c/c/e; no deformity Neuro- cn ii-xii grossly intact; strength 5/5 bilateral UE and LE; sensation to light touch intact and equal throughout; cerebellar testing intact; no pronator drift Skin- no appreciable rash or bruise Labs, imaging and EKG reviewed. Possible TIA: Patient had TIA in November 2015. CT head negative. MRI brain negative. MRA head negative. Carotid doppler unremarkable. TTE pending. No focal deficits on neurologic exam. Neuro consulted. Continue aspirin. Started clopidogrel in the event of possible aspirin failure. HTN: Allow some permissive HTN in the setting of possible TIA. Should pain could also be contributing - pain control as outlined above. Continue losartan. Hydralazine PRN. Agree with remainder of plan as outlined above. Advanced Directives Existing Living Will: Yes Existing Power of Surgical Manager: Yes VTE Prophylaxis VTE Risk Assessment Done? Y/N: Yes Risk Level: Moderate
[2016-09-06] MEDS: TEMAZEPAM 15 MG CAP PO PRN (22:11)
[2016-09-06 23:44] VITALS: BP 122/81; PULSE 82; TEMP 36.8; O2SAT 94
[2016-09-07] VITALS (10 sets, daily range): BP systolic 117–177; BP diastolic 80–113; PULSE 72–88; TEMP 36.3–37.2; O2SAT 93–96
[2016-09-07] MEDS: OXYCODONE/ACETAMINOPHEN 5-325 TAB PO PRN ×3 (00:44→15:03)
[2016-09-07 07:33] LABS: BASO % 0.2 %; BASO ABS # 0.01 K/uL (0-0.2); COMPLETE YES; EOS % 2.1 %; HEMATOCRIT 40.7 % (37-47); IG% 0.2 %; LYMPH % 35.8 %; MEAN CELL VOLUME 91.7 fL (80-100); MEAN CORPUSCULAR HEMOGLOBIN 32.2 pg (25-34); MEAN CORPUSCULAR HGB CONC 35.1 g/dl (32-36); MEAN PLATELET VOLUME 8.6 fL (7.4-10.4); MONO % 10.1 %; NEUT % 51.6 %; PLATELET COUNT 243 K/uL (130-400); RED BLOOD COUNT 4.44 M/uL (4.2-5.4); WHITE BLOOD COUNT 4.75 K/uL (4.8-10.8)
[2016-09-07 07:56] LABS: BUN/CREATININE RATIO 13.4 (10-20); CALCIUM 8.8 mg/dl (8.5-10.1); CREATININE 0.76 mg/dl (0.60-1.20); POTASSIUM 3.9 mmol/L (3.5-5.1)
[2016-09-07] MEDS: INSULIN ASPART 100 UNITS/ML 3 ML PEN SC SCH ×4 (07:59→21:00)
[2016-09-07 08:00] LABS: CHOLESTEROL/HDL RATIO 4.3
[2016-09-07] MEDS: RESTASIS~ORDER AWAITING ACTION SCH ×3 (08:00→23:02)
[2016-09-07] MEDS: LORAZEPAM 1 MG TAB PO SCH (08:14)
[2016-09-07] MEDS: CLOPIDOGREL BISULFATE 75 MG TAB PO SCH (08:15)
[2016-09-07] MEDS: CHOLECALCIFEROL 1000 INTER.UNIT TAB PO SCH ×3 (08:15→21:04)
[2016-09-07] MEDS: METOCLOPRAMIDE HCL 10 MG TAB PO SCH ×3 (08:15→16:10)
[2016-09-07] MEDS: CEROVITE ADV FORMULA TAB PO SCH (08:15)
[2016-09-07] MEDS: DOXEPIN HCL 75 MG CAP PO SCH ×2 (08:16→21:03)
[2016-09-07] MEDS: PANTOprazole SOD 40 MG TAB PO SCH (08:16)
[2016-09-07] MEDS ORDERED: ERGOCALCIFEROL 50,000 INTER.UNIT CAP PO SCH (09:00)
[2016-09-07] MEDS ORDERED: ASPIRIN 81 MG ECTAB PO SCH (09:00)
[2016-09-07] MEDS ORDERED: LORAZEPAM 1 MG TAB PO SCH (09:00)
[2016-09-07] MEDS ORDERED: BIOTIN 10 MG PO SCH (09:00)
[2016-09-07] MEDS ORDERED: LOSARTAN POTASSIUM 50 MG TAB PO ONE (10:54)
--- NOTE | 2016-09-07 10:54 | Progress Note ---
Medicine Progress Note Date & Time of Visit: Sep 07, 2016 at 10:43. Subjective seen sitting up in bed, bright, oriented x 3, comfortable inquiring when she can go home denies confusion, focal neuro deficits did well with OT reports intermittent "flutter" lasting for a few seconds, no associated symptoms , resolves spontaneously denies chest pain, dyspnea, nausea no other symptoms Objective Last 8 Hrs Date Time Temp Pulse Resp B/P Pulse Ox O2 Delivery O2 Flow Rate FiO2 09/07/16 07:37 36.8 72 16 174/95 93 Room Air 09/07/16 04:00 96 Room Air 09/07/16 03:42 36.7 80 18 146/82 94 Room Air Physical Exam: General- oriented x 3,not in distress, speaks in sentences with no effort Head- atraumatic Eyes- EOMI, anicteric ENT- oropharynx clear Neck- no JVD Lungs- clear to auscultation b/l Heart- nasir rate, regular rhythm; no murmurs Abdomen- normal bowel sounds, soft, nontender Extremities- no pretibial edema, no calf tenderness Neuro- alert, oriented x 3; no gross focal deficits Skin- warm & dry Laboratory Results: Last 24 Hours Test 09/06/16 12:52 09/06/16 20:18 09/07/16 06:58 09/07/16 07:17 White Blood Count 5.29 K/uL 4.75 K/uL Red Blood Count 4.27 M/uL 4.44 M/uL Hemoglobin 14.0 g/dL 14.3 g/dL Hematocrit 39.7 % 40.7 % Mean Corpuscular Volume 93.0 fL 91.7 fL Mean Corpuscular Hemoglobin 32.8 pg 32.2 pg Mean Corpuscular Hemoglobin Concent 35.3 g/dl 35.1 g/dl Platelet Count 246 K/uL 243 K/uL Mean Platelet Volume 9.0 fL 8.6 fL Neutrophils (%) (Auto) 64.0 % 51.6 % Lymphocytes (%) (Auto) 24.6 % 35.8 % Monocytes (%) (Auto) 9.1 % 10.1 % Eosinophils (%) (Auto) 1.7 % 2.1 % Basophils (%) (Auto) 0.2 % 0.2 % Neutrophils # (Auto) 3.39 K/uL 2.45 K/uL Lymphocytes # (Auto) 1.30 K/uL 1.70 K/uL Monocytes # (Auto) 0.48 K/uL 0.48 K/uL Eosinophils # (Auto) 0.09 K/uL 0.10 K/uL Basophils # (Auto) 0.01 K/uL 0.01 K/uL RDW Standard Deviation 49.6 fL 49.5 fL RDW Coefficient of Variation 14.7 % 14.8 % Immature Granulocyte % (Auto) 0.4 % 0.2 % Immature Granulocyte # (Auto) 0.02 K/uL 0.01 K/uL D-Dimer 360 ug/L FEU Sodium Level 141 mmol/L 140 mmol/L Potassium Level 4.2 mmol/L 3.9 mmol/L Chloride Level 105 mmol/L 104 mmol/L Carbon Dioxide Level 27 mmol/L 27 mmol/L Anion Gap 9.0 mmol/L 9.0 mmol/L Blood Urea Nitrogen 13 mg/dl 10 mg/dl Creatinine 0.61 mg/dl 0.76 mg/dl Estimated GFR () 108.7 94.1 Estimated GFR (Non- 93.8 81.2 BUN/Creatinine Ratio 20.8 13.4 Random Glucose 113 mg/dl 135 mg/dl Calcium Level 8.9 mg/dl 8.8 mg/dl Magnesium Level 2.1 mg/dl Total Bilirubin 0.4 mg/dl Aspartate Amino Transf (AST/SGOT) 10 U/L Alanine Aminotransferase (ALT/SGPT) 14 U/L Alkaline Phosphatase 122 U/L Troponin I < 0.015 ng/ml Total Protein 6.0 gm/dl Albumin 3.3 gm/dl Globulin 2.7 gm/dl Albumin/Globulin Ratio 1.2 Bedside Glucose 125 mg/dl 130 mg/dl Est Creatinine Clear Calc Drug Dose 82.8 ml/min Triglycerides Level 368 mg/dl Cholesterol Level 243 mg/dl HDL Cholesterol 56 mg/dl LDL Cholesterol, Calculated 113 mg/dl VLDL Cholesterol, Calculated 74 mg/dl Cholesterol/HDL Ratio 4.3 Assessment & Plan ALTERED MENTAL STATUS/ GENERALIZED WEAKNESS/ SPEECH DIFFICULTY POSSIBLE TIA HISTORY OF HISTIA - history of TIA treated with tPA in 11/2015; prior CVA workup essentially unremarkable except for mild abnormality on echo patient reports 1 day holter monitor after- negative - MRI brain and MRA head: unrevealing echo: pending - Plavix added to Aspirin may need repeat outpatient Cardiac monitoring - awaiting Neurology recommendations HYPERTENSION BP elevated in ER, likely secondary to significant left shoulder pain - usually on Losartan 100mg po daily in light of possible TIA, will lower dose to 50mg po daily today - monitor CHRONIC LEFT SHOULDER PAIN Follows with Dr. Funes- planned for surgery september shoulder x-ray no fracture, + chronic degenerative and postoperative change Continue home Percocet PRN DM TYPE 2 Not on medication Insulin sliding scale coverage A1c pending DYSLIPIDEMIA Did not tolerate Crestor or Lipitor in the past due to muscle pains Lipid panel noted DVT PROPHYLAXIS Lovenox SQ CODE STATUS Full code DISPOSITION Lives at home Follows with Dr. Mckeon for primary care Current Inpatient Medications: Current Inpatient Medications Medications (Trade) Dose Ordered Sig/Valente Route Start Time Stop Time Status Last Admin Dose Admin Enoxaparin Sodium (Lovenox Inj) 40 mg HS SC 09/06/16 21:00 10/06/16 20:59 09/06/16 20:56 40 MG Acetaminophen (Tylenol Tab) 650 mg Q4H PRN PO 09/06/16 17:30 10/06/16 17:29 Ondansetron HCl (Zofran Inj) 4 mg Q6H PRN IV 09/06/16 17:30 10/06/16 17:29 Clopidogrel Bisulfate (plAVix TAB) 75 mg QAM PO 09/07/16 09:00 10/07/16 08:59 09/07/16 08:15 75 MG Miscellaneous Information (Pharmacist Discharge Med Rec Consult) 1 ea UD PRN N/A 09/06/16 17:30 10/06/16 17:29 Oxycodone/ Acetaminophen (Percocet 5-325mg Tab) 1 tab PO q6H PRN pain ra... Q6H PRN PO 09/06/16 17:45 09/20/16 17:44 09/07/16 08:18 2 TAB Albuterol (Ventolin Hfa Inhaler) 2 puffs Q4 PRN INH 09/06/16 18:00 10/06/16 17:59 Aspirin (Ecotrin Tab) 81 mg QAM PO 09/07/16 09:00 10/07/16 08:59 09/07/16 08:15 81 MG Carisoprodol (Soma Tab) 350 mg BID PRN PO 09/06/16 18:00 10/06/16 17:59 Doxepin HCl (Sinequan Cap) 75 mg QAM PO 09/07/16 09:00 10/07/16 08:59 09/07/16 08:16 75 MG Doxepin HCl (Sine[place]an Cap) 150 mg QPM PO 09/06/16 21:00 10/06/16 20:59 09/06/16 20:55 150 MG Metoclopramide HCl (Reglan Tab) 10 mg AC PO 09/07/16 07:00 10/07/16 07:59 09/07/16 08:15 10 MG Promethazine HCl (Phenergan Supp) 25 mg Q6H PRN [place] 09/06/16 18:00 10/06/16 17:59 Promethazine HCl (Phenergan Tab) 25 mg Q6H PRN PO 09/06/16 18:00 10/06/16 17:59 09/06/16 20:53 25 MG Temazepam (Restoril Cap) 15 mg HS PRN PO 09/06/16 18:00 10/06/16 17:59 09/06/16 22:11 15 MG Cholecalciferol (Vitamin D Tab) 1,000 inter.unit TID PO 09/06/16 21:00 10/06/16 20:59 09/07/16 08:15 1,000 INTER.UNIT Multivitamins/ Minerals (Multivitamin W/ Minerals Tab) 1 tab QAM PO 09/07/16 09:00 10/07/16 08:59 09/07/16 08:15 1 TAB Pantoprazole Sodium (Protonix Tab) 40 mg QAM PO 09/07/16 09:00 10/07/16 08:59 09/07/16 08:16 40 MG Ergocalciferol (Vitamin D Cap) 50,000 interunit SuTuTh@0900 PO 09/07/16 09:00 10/07/16 08:59 09/07/16 08:15 50,000 INTERUNIT Insulin Aspart (novoLOG ASPART) SLIDING SCALE If C... ACHS SC 09/06/16 21:00 10/06/16 20:59 09/07/16 07:59 2 UNITS Glucose (Glucose 40% Gel) 15-30 GRAMS 15 GRAMS... UD PRN PO 09/06/16 18:00 10/06/16 17:59 Glucose (Glucose Chew Tab) 4-8 Tablets 4 Tabl... UD PRN PO 09/06/16 18:00 10/06/16 17:59 Dextrose (Dextrose 50% 50ML Syringe) 25-50ML OF 50% DW IV FOR... UD PRN IV 09/06/16 18:00 10/06/16 17:59 Glucagon (Glucagon Inj) 1 mg UD PRN SQ 09/06/16 18:00 10/06/16 17:59 Miscellaneous Information (Order Awaiting Action) 1 ea QS N/A 09/07/16 00:00 10/07/16 00:00 Miscellaneous Information (Order Awaiting Action) 1 ea QS N/A 09/07/16 00:00 10/07/16 00:00 Morphine Sulfate (MoRPHine SULFATE INJ) 2 mg DAILY PRN IV 09/06/16 18:45 09/20/16 18:44 09/06/16 21:06 2 MG Hydralazine HCl (HydrALAZINE INJ) 5 mg Q6 PRN IV. 09/06/16 18:45 10/06/16 18:44 Miscellaneous (Iv Fluids Completed) 1 ea PRN PRN N/A 09/06/16 20:15 09/06/17 20:14 Lorazepam (Ativan Tab) 1 mg DAILY@0800 PO 09/07/16 08:00 10/07/16 07:59 09/07/16 08:14 1 MG
--- NOTE | 2016-09-07 13:02 | Neurology Consultation ---
Neurology Consultation Date of Consultation: Sep 07, 2016. Attending Physician: Pedro Fishman MD Primary Care Physician: Conrad Mckeon D.OEmiliano Reason for Consultation: Consultation for possible TIA History of Present Illness Source: patient, spouse, clinic records, hospital records This is a 75-year-old female who has been followed in neurology clinic by Dr. Taylor for peripheral polyneuropathy and possible TIA in November 2015. The patient herself does not tend to have many complaints intends to brush her many years for symptoms as speech disturbance secondary to her dentures, and falling secondary to peripheral neuropathy (both of which could be true). reports that he was concerned because she had acute confusion and generalized weakness for about 6 hours yesterday. He also reports that her speech was significantly slurred and he often had trouble understanding her. He denies any symptoms answering for expressive or receptive aphasia. He reports that she had a similar episode that was maybe less severe 2 weeks ago lasted about a day. Both the patient and her deny any new focal numbness or weakness. There was no facial droop. There was no loss of vision. There was no dizziness. No chest pain, shortness of breath, or heart palpitations. The patient does report that sometimes she does get a flutter in her chest but has attributed this to anxiety. She reports that she wore a Holter monitor a couple months ago and it was negative for A. fib. Patient does have a significant history for having a TIA/stroke workup in November 2015. She presented to [facility] and because of concern for stroke was given IV TPA. Well notes from [facility] reports left-sided weakness, the reports that she was leaning to the left but he did not think that there was any focal weakness. He reports that she just suddenly became unresponsive and was slumping to the left. She was weak all over. Workup from [place] was reviewed. She had a CT of the head and neck that was unremarkable. MRI did not show any stroke. She had transthoracic echocardiogram that was unremarkable. Patient was put on aspirin and Plavix for 3 months and then recommended to go down to just aspirin after that. The patient continues to take aspirin. per review of outpatient chart, there was noted to be a recent nursing note from our office from August 25 that seemed indicate that the patient was taking more than normal Ativan for anxiety. This Hospital workup was reviewed. MRI of the brain reported images were reviewed by myself. There was no acute or chronic strokes. There is some mild T2 hyperintensities in the subcortical white matter likely consistent with some mild cerebral small vessel ischemic disease. Ultrasound of the carotids are unremarkable MRA of the head is unremarkable Echocardiogram results are pending CT of the cervical spine notes degenerative changes Total cholesterol 243, LDL 113, HDL of 56, triglycerides 368 Hemoglobin A1c is pending CBC and UA were negative for signs of infection ( did report previous episode of encephalopathy with UTI) Review of systems patient does report some severe left shoulder pain secondary to injury. She reports that she is currently getting a surgical workup. Patient denies any significant back pain or radiculopathy type pain. In addition patient also reports increased anxiety since her TIA/stroke episode in November 2015. Past Medical/Surgical History Medical Problems: (1) Ambulatory dysfunction Status: Acute (2) Chronic low back pain Status: Acute (3) Dehydration Status: Acute (4) Dizziness, nonspecific Status: Acute (5) Epigastric abdominal pain Status: Acute (6) Headache Status: Acute (7) Hypertensive urgency Status: Acute (8) Nausea Status: Acute (9) Neck mass Status: Acute (10) Radiating chest pain Status: Acute (11) Slurred speech Status: Acute (12) TIA (transient ischemic attack) Status: Acute (13) Viral syndrome Status: Acute (14) Weakness Status: Acute Possible TIA/stroke in November 2015 status post IV TPA with reports of leaning to the left and slurred speech and unresponsiveness Hypertension Diabetes type 2 Dry eyes Dyslipidemia Chronic low back pain Peripheral polyneuropathy Anxiety Family History Family history father with a stroke when he was 45. Patient also reports though that he was a heavy drinker and smoker. 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 She is normally independent in her activities of daily living. No tobacco use. Rare alcohol use. No illegal drug use. Smoking Status: Never smoker Alcohol Use: 1 drink per day Drug Use: none Marital Status: Housing Status: lives with significant other Allergies Coded Allergies: Atorvastatin (Verified Allergy, Unknown, myalgias per PCP note , 09/06/16) CI Pigment Blue 63 (Verified Adverse Reaction, Mild, PSYCHOSIS, 09/06/16) Duloxetine (Verified Adverse Reaction, Mild, PSYCHOSIS, 09/06/16) Gabapentin (Verified Adverse Reaction, Mild, PSYCHOSIS, 09/06/16) Morphine (Verified Adverse Reaction, Mild, NAUSEA, 09/06/16) NSAIDs (Verified Adverse Reaction, Unknown, s/p bariatric surgery, 09/06/16 ) per gmg Current Inpatient Medications Current Inpatient Medications Medications (Trade) Dose Ordered Sig/Valente Route Start Time Stop Time Status Last Admin Dose Admin Enoxaparin Sodium (Lovenox Inj) 40 mg HS SC 09/06/16 21:00 10/06/16 20:59 09/06/16 20:56 40 MG Acetaminophen (Tylenol Tab) 650 mg Q4H PRN PO 09/06/16 17:30 10/06/16 17:29 Ondansetron HCl (Zofran Inj) 4 mg Q6H PRN IV 09/06/16 17:30 10/06/16 17:29 Clopidogrel Bisulfate (plAVix TAB) 75 mg QAM PO 09/07/16 09:00 10/07/16 08:59 09/07/16 08:15 75 MG Miscellaneous Information (Pharmacist Discharge Med Rec Consult) 1 ea UD PRN N/A 09/06/16 17:30 10/06/16 17:29 Oxycodone/ Acetaminophen (Percocet 5-325mg Tab) 1 tab PO q6H PRN pain ra... Q6H PRN PO 09/06/16 17:45 09/20/16 17:44 09/07/16 08:18 2 TAB Albuterol (Ventolin Hfa Inhaler) 2 puffs Q4 PRN INH 09/06/16 18:00 10/06/16 17:59 Aspirin (Ecotrin Tab) 81 mg QAM PO 09/07/16 09:00 10/07/16 08:59 09/07/16 08:15 81 MG Carisoprodol (Soma Tab) 350 mg BID PRN PO 09/06/16 18:00 10/06/16 17:59 Doxepin HCl (Sinequan Cap) 75 mg QAM PO 09/07/16 09:00 10/07/16 08:59 09/07/16 08:16 75 MG Doxepin HCl (Sinequan Cap) 150 mg QPM PO 09/06/16 21:00 10/06/16 20:59 09/06/16 20:55 150 MG Metoclopramide HCl (Reglan Tab) 10 mg AC PO 09/07/16 07:00 10/07/16 07:59 09/07/16 11:31 10 MG Promethazine HCl (Phenergan Supp) 25 mg Q6H PRN OH 09/06/16 18:00 10/06/16 17:59 Promethazine HCl (Phenergan Tab) 25 mg Q6H PRN PO 09/06/16 18:00 10/06/16 17:59 09/06/16 20:53 25 MG Temazepam (Restoril Cap) 15 mg HS PRN PO 09/06/16 18:00 10/06/16 17:59 09/06/16 22:11 15 MG Cholecalciferol (Vitamin D Tab) 1,000 inter.unit TID PO 09/06/16 21:00 10/06/16 20:59 09/07/16 08:15 1,000 INTER.UNIT Multivitamins/ Minerals (Multivitamin W/ Minerals Tab) 1 tab QAM PO 09/07/16 09:00 10/07/16 08:59 09/07/16 08:15 1 TAB Pantoprazole Sodium (Protonix Tab) 40 mg QAM PO 09/07/16 09:00 10/07/16 08:59 09/07/16 08:16 40 MG Ergocalciferol (Vitamin D Cap) 50,000 interunit SuTuTh@0900 PO 09/07/16 09:00 10/07/16 08:59 09/07/16 08:15 50,000 INTERUNIT Insulin Aspart (novoLOG ASPART) SLIDING SCALE If C... ACHS SC 09/06/16 21:00 10/06/16 20:59 09/07/16 12:07 1 UNITS Glucose (Glucose 40% Gel) 15-30 GRAMS 15 GRAMS... UD PRN PO 09/06/16 18:00 10/06/16 17:59 Glucose (Glucose Chew Tab) 4-8 Tablets 4 Tabl... UD PRN PO 09/06/16 18:00 10/06/16 17:59 Dextrose (Dextrose 50% 50ML Syringe) 25-50ML OF 50% DW IV FOR... UD PRN IV 09/06/16 18:00 10/06/16 17:59 Glucagon (Glucagon Inj) 1 mg UD PRN SQ 09/06/16 18:00 10/06/16 17:59 Miscellaneous Information (Order Awaiting Action) 1 ea QS N/A 09/07/16 00:00 10/07/16 00:00 Miscellaneous Information (Order Awaiting Action) 1 ea QS N/A 09/07/16 00:00 10/07/16 00:00 Morphine Sulfate (MoRPHine SULFATE INJ) 2 mg DAILY PRN IV 09/06/16 18:45 09/20/16 18:44 09/06/16 21:06 2 MG Hydralazine HCl (HydrALAZINE INJ) 5 mg Q6 PRN IV. 09/06/16 18:45 10/06/16 18:44 Miscellaneous (Iv Fluids Completed) 1 ea PRN PRN N/A 09/06/16 20:15 09/06/17 20:14 Lorazepam (Ativan Tab) 1 mg DAILY@0800 PO 09/07/16 08:00 10/07/16 07:59 09/07/16 08:14 1 MG Losartan Potassium (coZAAR TAB) 50 mg QAM PO 09/08/16 09:00 10/08/16 08:59 Review of Systems Complete review systems otherwise negative except for the above noted in history of present illness Physical Exam Vital Signs (Past 24 Hrs): Date Time Temp Pulse Resp B/P Pulse Ox O2 Delivery O2 Flow Rate FiO2 09/07/16 11:54 37.2 88 22 177/103 95 Room Air 09/07/16 07:37 36.8 72 16 174/95 93 Room Air 09/07/16 04:00 96 Room Air 09/07/16 03:42 36.7 80 18 146/82 94 Room Air 09/06/16 23:59 Room Air 09/06/16 23:44 36.8 82 17 122/81 94 Room Air 09/06/16 20:45 96 Room Air 09/06/16 18:08 37.2 96 18 187/133 96 Room Air 09/06/16 17:46 78 17 168/97 96 Room Air 09/06/16 17:20 96 Room Air 09/06/16 15:00 83 17 179/105 97 Room Air Gen.: Patient is alert and sitting on the side of the bed, in no acute distress. HEENT: Normocephalic /atraumatic, no scleral icterus Heart: Regular rate and rhythm Extremities: No gross deformities or rashes noted Neurological examination: Mental status: Patient is alert and oriented x3. Attention and concentration normal for the situation. Good fund of knowledge. Able to give her own history. Speech is fluent without any dysarthria or aphasia noted Cranial nerve: Funduscopic examination was unremarkable. No papilledema. Pupils equally round and reactive to light. Extraocular muscles intact without nystagmus. No facial asymmetry noted. Facial sensation intact. Tongue is midline. Good palatal elevation. Good shoulder shrug bilaterally. Hearing grossly intact to voice. Strength: 5/5 both proximal and distally in all extremities (there was some giveaway weakness of proximal left upper extremity secondary to shoulder pain). There is no arm drift. Tone is normal. Sensation: Grossly intact to light touch in all extremities. Positive Romberg Deep tendon reflexes: +1 in bilateral biceps, brachioradialis and trace patellar. Coordination: Patient had good finger to nose without dysmetria Gait was stable and within normal limits with no ataxia noted Laboratory Results Past 24 Hours: 09/07/16 07:17 Red Blood Count 4.44, Mean Corpuscular Volume 91.7, Mean Corpuscular Hemoglobin 32.2, Mean Corpuscular Hemoglobin Concent 35.1, Mean Platelet Volume 8.6, Neutrophils (%) (Auto) 51.6, Lymphocytes (%) (Auto) 35.8, Monocytes (%) (Auto) 10.1, Eosinophils (%) (Auto) 2.1, Basophils (%) (Auto) 0.2, Neutrophils # (Auto ) 2.45, Lymphocytes # (Auto) 1.70, Monocytes # (Auto) 0.48, Eosinophils # (Auto ) 0.10, Basophils # (Auto) 0.01 09/07/16 07:17 Test 09/07/16 07:17 09/07/16 11:17 White Blood Count 4.75 K/uL (4.8-10.8) Red Blood Count 4.44 M/uL (4.2-5.4) Hemoglobin 14.3 g/dL (12.0-16.0) Hematocrit 40.7 % (37-47) Mean Corpuscular Volume 91.7 fL (80-100) Mean Corpuscular Hemoglobin 32.2 pg (25-34) Mean Corpuscular Hemoglobin Concent 35.1 g/dl (32-36) Platelet Count 243 K/uL (130-400) Mean Platelet Volume 8.6 fL (7.4-10.4) Neutrophils (%) (Auto) 51.6 % Lymphocytes (%) (Auto) 35.8 % Monocytes (%) (Auto) 10.1 % Eosinophils (%) (Auto) 2.1 % Basophils (%) (Auto) 0.2 % Neutrophils # (Auto) 2.45 K/uL (1.4-6.5) Lymphocytes # (Auto) 1.70 K/uL (1.2-3.4) Monocytes # (Auto) 0.48 K/uL (0.11-0.59) Eosinophils # (Auto) 0.10 K/uL (0-0.5) Basophils # (Auto) 0.01 K/uL (0-0.2) RDW Standard Deviation 49.5 fL (36.4-46.3) RDW Coefficient of Variation 14.8 % (11.5-14.5) Immature Granulocyte % (Auto) 0.2 % Immature Granulocyte # (Auto) 0.01 K/uL (0.00-0.02) Anion Gap 9.0 mmol/L (3-11) Est Creatinine Clear Calc Drug Dose 82.8 ml/min Estimated GFR () 94.1 Estimated GFR (Non- 81.2 BUN/Creatinine Ratio 13.4 (10-20) Calcium Level 8.8 mg/dl (8.5-10.1) Triglycerides Level 368 mg/dl (0-150) Cholesterol Level 243 mg/dl (0-200) HDL Cholesterol 56 mg/dl LDL Cholesterol, Calculated 113 mg/dl VLDL Cholesterol, Calculated 74 mg/dl Cholesterol/HDL Ratio 4.3 Bedside Glucose 129 mg/dl (70-90) Imaging As noted above in history of present illness Impression This is a 66-year-old female with 2 episodes in the last 2 weeks of acute encephalopathy, generalized weakness, and slurred speech. Uncertain if it could be secondary to Ativan and pain medication use. Nothing highly suggestive of TIA or seizures at this time. Vascular risk factors do include a presumed previous TIA in November 2015, hypertension, dyslipidemia, diabetes type 2. Patient is currently at her neurological baseline this morning. 2) chronic long-standing gait and balance dysfunction likely secondary to peripheral polyneuropathy. Plan To cover her in the event that this was a vascular event, recommend switching to Plavix 75mg daily and discontinue aspirin. Instructed the patient and her to keep track of her prn Ativan and pain medication use in the event that she has additional spells to see if medication use is related to these acute confusional spells. In terms of stroke risk factor modifications, could consider trial of low dose pravastatin for dyslipidemia. Patients tends to have less side effects with this weaker statin compared to other statins that she's tried in the past. Follow-up in neurology clinic with our physician purchasing administrative assistant Matilde in 1 month. Patient normally follows with Dr. Taylor in clinic. In addition I have sent a message to our schedulers to set her up for routine EEG that same day for further evaluation of possible seizure etiology for these acute confusional events. If for some reason the patient stays in hospital until Thursday, could consider ordering an EEG for tomorrow morning. Otherwise I do not have any contraindications to her being discharged today. Avoid hypotension and dehydration Stroke risk factor modifications and recommendations: Blood pressure recommendations 130/80-110/70 Total cholesterol goal 100- 200 and LDL goal less than 70 Hemoglobin A1c goal less than 7 Encourage cardiovascular exercise at least 3 times a week for 30 minutes. Thank you for allowing me to participate in this patient's care. If there is any questions or concerns, feel free to call/page me.
[2016-09-07] MEDS ORDERED: PLV75 PO (14:31)
[2016-09-07] MEDS ORDERED: OXYC-57 PO (14:31)
[2016-09-07] MEDS ORDERED: CZR50 PO (14:31)
--- NOTE | 2016-09-07 14:39 | Discharge Instructions ---
Discharge Instructions Date of Service Sep 08, 2016. Admission Reason for Admission: Altered Mental Status Discharge Discharge Diagnosis / Problem: ALTERED MENTAL STATUS Discharge Goals Goal(s): Diagnostic testing, Therapeutic intervention Activity Recommendations Activity Limitations: as noted below (NO HEAVY EXERTION UNTIL RE-EVALUATED BY PRIMARY CARE PHYSICIAN) . Instructions / Follow-Up Instructions / Follow-Up PLEASE REVIEW YOUR NEW MEDICATION LIST AND FOLLOW INSTRUCTIONS CAREFULLY. CALL PRIMARY CARE PHYSICIAN OR RETURN TO ER IMMEDIATELY IF WITH RECURRENCE OF SYMPTOMS. IF WITH PERSISTENT PALPITATIONS, CHEST PAIN, SHORTNESS OF BREATH, CALL 911. FOLLOW UP WITH DR. ADAMSON ON Thursday09/10/16 AT 8:30AM. FOLLOW UP WITH [facility] INDUSTRIAL TECHNOLOGY TEACHER DR. AGUIRRE FOR CARDIAC MONITORING ( CLINIC TO CALL PATIENT). TEL NO. FOLLOW WITH DR. CHOUDHURY IN 1 MONTH. Risk Factors for Stroke: You can reduce your chances of stroke by working with your medical provider to adopt a healthy lifestyle. Some specific ways to lower your chance of stroke are: * If you are a smoker, now is the time to stop smoking cigarettes * If you are diabetic, improve the control of your blood sugars * Avoid excessive amounts of alcohol * Control high blood pressure * Lose weight if you are overweight * Be sure to lead an active lifestyle * Eat a healthy diet low in salt, cholesterol and fat You should know about other risk factors for stroke that you are unable to control. These include: * Age 55 years or older * Male gender * Certain racial groups: , or / * Family History of Stroke, Mini stroke or Heart Attack * Sickle Cell Disease Follow Up: It is important for you to keep your follow up appointments with your medical provider. Current Hospital Diet Patient's current hospital diet: Diabetes Type 2 Diet, AHA Diet (Heart Healthy) Discharge Diet Recommended Diet: AHA Diet (Heart Healthy) Procedures Procedures Performed: BRAIN MRA, HEAD MRA, CAROTID ULTRASOUND Pending Studies Studies pending at discharge: yes List of pending studies: CARDIAC MONITORING C/O INDUSTRIAL TECHNOLOGY TEACHER; EEG C/O NEUROLOGIST Laboratory Results Hemoglobin A1c Test 09/06/16 12:52 Range/Units Lipid Panel Test 09/07/16 07:17 Range/Units Triglycerides Level 368 H 0-150 mg/dl Cholesterol Level 243 H 0-200 mg/dl HDL Cholesterol 56 mg/dl Cholesterol/HDL Ratio 4.3 LDL Cholesterol, Calculated 113 mg/dl Medical Emergencies . Who to Call and When: Medical Emergencies: Call 911 immediately if you experience any of the following warning signs and symptoms of Stroke: * Sudden numbness or weakness of the face, arm or leg, especially on one side of the body * Sudden confusion, trouble speaking or understanding * Sudden trouble seeing in one or both eyes * Sudden trouble walking, dizziness, loss of balance or coordination * Sudden severe headache with no cause Do not delay calling 911 if you experience any warning signs or symptoms of a stroke. Delay in seeking medical attention may affect what treatments can be given to you. . Non-Emergent Contact Non-Emergency issues call your: Primary Care Provider Call Non-Emergent contact if: you have a fever, your pain is not controlled, you have any medication questions . Past History Medical & Surgical History: (1) DM2 (diabetes mellitus, type 2) (2) Asthma (3) Morbid obesity (4) Hyperlipidemia (5) GERD (gastroesophageal reflux disease) (6) Anxiety (7) Hypertension (8) C. difficile diarrhea (9) Sacral back pain (10) Slurred speech (11) Ambulatory dysfunction (12) Weakness (13) H/O spinal fusion (14) Previous section (15) S/P parathyroidectomy (16) S/P cholecystectomy (17) Total knee replacement status (18) S/p left shoulder surgery (19) S/P appendectomy (20) History of carpal tunnel surgery (21) H/O gastric bypass (22) S/P tonsillectomy and adenoidectomy (23) H/O hernia repair . "Provider Documentation" section prepared by Pedro Fishman. Stroke Core Measures Reason no t-PA for Stroke: Treatment not indicated Reason no antithrom by day 2: Treatment provided - N/A Reason no antithrom at D/C: Treatment provided - N/A Reason no statin at D/C: Treatment not tolerated Reason no anticoag w/a fib: Treatment not indicated VTE Core Measure Inpt VTE Proph given/why not?: Enoxaparin (Lovenox)SQ [place] Drug Monitoring Program Search Results: patient reviewed within database
--- NOTE | 2016-09-07 15:55 | ECHOCARDIOGRAM REPORT ---
*NOTICE TO RECEIVING [employer]Y This information is strictly Confidential and protected under [place] law. [place] law prohibits you from making any further disclosure of this information unless further disclosure is expressly permitted by the written consent of the person to whom it pertains or is authorized by law. A general authorization for the release of medical or other information is not sufficient for this purpose. Hospital accepts no responsibility if the information is made available to any other person, INCLUDING THE PATIENT. Interpretation Summary * Name: AMAN WALLER Study Date: 09/07/2016 06:38 AM BP: 146/82 mmHg * Patient Location: C.2T\S\E219\S\1 HR: 80 * : 1950 (M/d/yyyy) Gender: Female Height: 63 in * Age: 66 yrs Ethnicity: CA Weight: 228 lb * Ordering Physician: Fay Mena * Referring Physician: Self, Referred * Performed By: [facility] * * Reason For Study: TIA * BSA: 2.0 m2 * No cardiac source of emboli noted. * -- Conclusions -- * The left ventricle is normal in size. * Left ventricular systolic function is normal. * Ejection Fraction = 60-65%. * The right ventricular systolic function is normal. * The left atrial size is normal. * Right atrial size is normal. * No cardiac source of emboli noted. Procedure Details * A complete two-dimensional transthoracic echocardiogram was performed (2D, M-mode, Doppler and color flow Doppler). * A saline contrast injection was performed to assess for cardiac shunting. * The injection was performed through an intravenous line in the right arm. * The attending nurse who injected the saline contrast was Shadi Pizano RN. * A total of 20 cc of agitated saline was given. Left Ventricle * The left ventricle is normal in size. * Ejection Fraction = 60-65%. * Left ventricular systolic function is normal. * The left ventricular wall motion is normal. Right Ventricle * The right ventricle is grossly normal size. * The right ventricular systolic function is normal. Atria * The left atrial size is normal. * Right atrial size is normal. * Injection of contrast documented no interatrial shunt. * The interatrial septum is intact with no evidence for an atrial septal defect. Mitral Valve * The mitral valve is grossly normal. * Significant mitral regurgitation is absent. Tricuspid Valve * The tricuspid valve is not well visualized. * Significant tricuspid regurgitation is absent. Aortic Valve * The aortic valve is tricuspid. The leaflet thickness if normal. There is no aortic stenosis, and no significant insufficiency. * No hemodynamically significant valvular aortic stenosis. * There is no significant aortic regurgitation. Pulmonic Valve * The pulmonary valve is inadequately visualized, but the Doppler data is adequate for interpretation. * There is no significant pulmonary regurgitation. Great Vessels * The aortic root and proximal ascending aorta are normal sized. Pericardium/Pleural * There is no pericardial effusion. Left Ventricular Diastolic Function * Grade I diastolic dysfunction, (abnormal relaxation pattern). MMode 2D Measurements and Calculations IVSd 1.0 cm IVSs 1.3 cm LVIDd 5.9 cm LVIDs 3.9 cm LVPWd 1.0 cm LVPWs 1.3 cm IVS/LVPW 0.99 FS 33.5 % EDV(Teich) 172.3 ml ESV(Teich) 66.6 ml EF(Teich) 61.3 % EDV(cubed) 204.0 ml ESV(cubed) 60.1 ml EF(cubed) 70.5 % % IVS thick 24.8 % % LVPW thick 26.0 % LV mass(C)d 245.5 grams LV mass(C)dI 120.1 grams/m\S\2 LV mass(C)s 176.7 grams LV mass(C)sI 86.4 grams/m\S\2 CO(Teich) 7.8 l/min CI(Teich) 3.8 l/min/m\S\2 SV(Teich) 105.7 ml SI(Teich) 51.7 ml/m\S\2 CO(cubed) 10.6 l/min CI(cubed) 5.2 l/min/m\S\2 SV(cubed) 143.9 ml SI(cubed) 70.4 ml/m\S\2 Ao root diam 3.5 cm Ao root area 9.8 cm\S\2 ACS 1.6 cm LA dimension 3.3 cm LA/Ao 0.92 LVAd ap4 35.0 cm\S\2 LVLd ap4 9.0 cm EDV(MOD-sp4) 113.0 ml LVAs ap4 16.4 cm\S\2 LVLs ap4 7.0 cm ESV(MOD-sp4) 34.0 ml EF(MOD-sp4) 69.9 % LVAd ap2 30.4 cm\S\2 LVLd ap2 8.7 cm EDV(MOD-sp2) 90.0 ml LVAs ap2 17.0 cm\S\2 LVLs ap2 6.7 cm ESV(MOD-sp2) 36.0 ml EF(MOD-sp2) 60.0 % CO(MOD-sp4) 5.8 l/min CI(MOD-sp4) 2.9 l/min/m\S\2 SV(MOD-sp4) 79.0 ml SI(MOD-sp4) 38.6 ml/m\S\2 CO(MOD-sp2) 4.0 l/min CI(MOD-sp2) 2.0 l/min/m\S\2 SV(MOD-sp2) 54.0 ml SI(MOD-sp2) 26.4 ml/m\S\2 Doppler Measurements and Calculations MV E max apolonia 76.6 cm/sec MV A max [place] 107.0 cm/sec MV E/A 0.72 MV P1/2t max [place] 77.7 cm/sec MV P1/2t 94.0 msec MVA(P1/2t) 2.3 cm\S\2 MV dec slope 242.1 cm/sec\S\2 MV dec time 0.27 sec Ao V2 max 157.5 cm/sec Ao max PG 9.9 mmHg Ao max PG (full) 7.2 mmHg LV V1 max PG 2.7 mmHg LV V1 max 82.7 cm/sec PA V2 max 94.5 cm/sec PA max PG 3.6 mmHg
[2016-09-07] MEDS: LORAZEPAM 0.5 MG TAB PO PRN ×2 (16:10→21:59)
--- NOTE | 2016-09-07 18:21 | CARDIOLOGY CONSULTATION ---
DATE OF CONSULTATION: 09/07/2016 For the [facility] hospitalist. REASON FOR CONSULTATION: PSVT. HISTORY OF PRESENT ILLNESS: This is a 66-year-old type 2 diabetic who in the past has had a history of TIAs and in November of 2015 was actually treated at [facility] with the TPA protocol. She has a history of severe diabetic neuropathy with frequent falls. On the day of admission, she had increasing confusion, weakness and dysarthria. This may have been related to medications. She has been seen by neurology and a workup was completed. She was ready for discharge and then on the telemetry unit, she had several-second run of nonsustained supraventricular tachycardia at a rate of about 150 beats per minute. This suggests this may have been atrial flutter with 2:1 conduction. She had an echocardiogram today that shows normal LV function and no significant valvular pathology. She currently is on aspirin and Plavix as per neurology. She has no current complaints and feels well. She is disappointed she could not be discharged. ALLERGIES: ATORVASTATIN, GABAPENTIN, MORPHINE, NSAID'S, DULCOLAX, AND BLUE PIGMENT. PAST MEDICAL HISTORY: The patient has a history of type 2 diabetes with neurologic complications. She is treated for dyslipidemia and hypertension. She is status post gastric bypass surgery. She has also had a previous left shoulder surgery and is scheduled for additional surgery in the future. FAMILY MEDICAL HISTORY: Significant for diabetes. SOCIAL HISTORY: The patient is a lifelong nonsmoker. She is and lives with her . REVIEW OF SYSTEMS: A 10-point review of systems is negative except for the history of chief complaint. In addition, she has no prior history of cardiac arrhythmias or ischemic heart disease. PHYSICAL EXAMINATION: GENERAL: She is alert and oriented. VITAL SIGNS: Blood pressure is 160/90, pulse is regular at 78. She is afebrile. HEENT: She is normocephalic. Pupils are equal and reactive to light. Extraocular muscles are intact bilaterally. NECK: The neck veins are flat. Carotids have good upstrokes bilaterally without bruits. Thyroid is nonpalpable. RESPIRATORY: Breath sounds equal bilaterally and clear to auscultation. CARDIOVASCULAR: Heart has a regular rhythm. Normal S1, S2. No S3, S4. No cardiac rubs or murmurs. GASTROINTESTINAL: Abdomen is soft, nontender without organomegaly. EXTREMITIES: Free of edema, digital clubbing, or cyanosis. NEUROLOGIC: Grossly intact. SKIN: Warm to touch. LYMPH NODES: Negative to palpation. IMPRESSION: 1. Paroxysmal supraventricular tachycardia, most likely consistent with atrial flutter and 2:1 conduction, which was asymptomatic on the laboratory monitor. 2. History of transient ischemic attacks. 3. Diabetes with neurologic complications. RECOMMENDATIONS: The patient had a fairly normal echocardiogram. I think that we can easily treat her with a beta aure. I have started metoprolol 12.5 mg b.i.d. and she will have her first dose this evening. Provided she has no additional arrhythmias, we could possibly discharge her tomorrow for outpatient followup.
[2016-09-07] MEDS: PROMETHAZINE HCL 25 MG TAB PO PRN (19:27)
[2016-09-07] MEDS: MoRPHine SULFATE 2 MG/ML CARP IV PRN (19:28)
[2016-09-07] MEDS: METOPROLOL TARTRATE 25 MG TAB PO SCH (21:00)
[2016-09-07] MEDS: ENOXAPARIN 40 MG/0.4 ML SYR SC SCH (21:05)
[2016-09-07] MEDS: TEMAZEPAM 15 MG CAP PO PRN (21:59)
[2016-09-08] MEDS: OXYCODONE/ACETAMINOPHEN 5-325 TAB PO PRN ×2 (01:07→08:00)
[2016-09-08 03:24] VITALS: BP 146/82; PULSE 64; TEMP 36.1; O2SAT 96
[2016-09-08 04:00] VITALS: O2SAT 96
[2016-09-08] MEDS: METOCLOPRAMIDE HCL 10 MG TAB PO SCH ×2 (05:04→11:58)
[2016-09-08 07:07] LABS: ESTIMATED AVERAGE GLUCOSE 140 mg/dl; HA1C FLAG Normal (Normal)
[2016-09-08 07:39] LABS: BASO % 0.2 %; BASO ABS # 0.01 K/uL (0-0.2); COMPLETE YES; HEMATOCRIT 39.7 % (37-47); IG% 0.5 %; LYMPH % 33.8 %; LYMPH ABS # 1.37 K/uL (1.2-3.4); MEAN CELL VOLUME 92.1 fL (80-100); MEAN CORPUSCULAR HEMOGLOBIN 31.3 pg (25-34); MEAN PLATELET VOLUME 8.6 fL (7.4-10.4); MONO % 10.9 %; NEUT % 52.6 %; PLATELET COUNT 233 K/uL (130-400); RED BLOOD COUNT 4.31 M/uL (4.2-5.4); WHITE BLOOD COUNT 4.05 K/uL (4.8-10.8)
[2016-09-08] MEDS: LORAZEPAM 1 MG TAB PO SCH (08:00)
[2016-09-08] MEDS: CLOPIDOGREL BISULFATE 75 MG TAB PO SCH (08:01)
[2016-09-08] MEDS: CEROVITE ADV FORMULA TAB PO SCH (08:01)
[2016-09-08] MEDS: DOXEPIN HCL 75 MG CAP PO SCH (08:01)
[2016-09-08] MEDS: PANTOprazole SOD 40 MG TAB PO SCH (08:01)
[2016-09-08] MEDS: METOPROLOL TARTRATE 25 MG TAB PO SCH (08:02)
[2016-09-08] MEDS: CHOLECALCIFEROL 1000 INTER.UNIT TAB PO SCH (08:03)
[2016-09-08 08:04] LABS: BUN/CREATININE RATIO 12.8 (10-20); CALCIUM 9.1 mg/dl (8.5-10.1); CREATININE 0.67 mg/dl (0.60-1.20); POTASSIUM 3.8 mmol/L (3.5-5.1)
[2016-09-08] MEDS: INSULIN ASPART 100 UNITS/ML 3 ML PEN SC SCH ×2 (08:06→11:58)
[2016-09-08 08:25] VITALS: BP 149/79; PULSE 66; TEMP 36.8; O2SAT 92
[2016-09-08] MEDS ORDERED: LOSARTAN POTASSIUM 50 MG TAB PO SCH (09:00)
--- NOTE | 2016-09-08 10:46 | Cardiology Follow-Up ---
Subjective General Date of Service: Sep 08, 2016. Chief Complaint: follow up tachycardia Pt evaluation today including: conversation w/ patient, physical exam History of Present Illness The patient is a 66 year old female seen in cardiology follow up. Initial consult performed yesterday by Dr Mcnulty. Patient notes feeling well. She had a single dana of narrow complex tachycardia on 09/07/16 at 14:10 that lasted 30 seconds, onset with PAC and offset to sinus rhythm. Rate of 150 bpm. Pt describes occasional palpitations at home, brief, 2 x per week. Past Holter negative. She feels better on metoprolol having received 2 doses thus far with no recurrence of palpitations. Allergies Coded Allergies: Atorvastatin (Verified Allergy, Unknown, myalgias per PCP note , 09/06/16) CI Pigment Blue 63 (Verified Adverse Reaction, Mild, PSYCHOSIS, 09/06/16) Duloxetine (Verified Adverse Reaction, Mild, PSYCHOSIS, 09/06/16) Gabapentin (Verified Adverse Reaction, Mild, PSYCHOSIS, 09/06/16) Morphine (Verified Adverse Reaction, Mild, NAUSEA, 09/06/16) NSAIDs (Verified Adverse Reaction, Unknown, s/p bariatric surgery, 09/06/16 ) per gmg Social History Smoking Status: Never Smoker Hx Tobacco Use In Past Year?: No Hx Alcohol Use - Type And Amou: Yes (FEW TIMES A YEAR WINE) Hx Substance Use - Type And Am: No Problem List Medical Problems: (1) Ambulatory dysfunction Status: Acute (2) Chronic low back pain Status: Acute (3) Dehydration Status: Acute (4) Dizziness, nonspecific Status: Acute (5) Epigastric abdominal pain Status: Acute (6) Headache Status: Acute (7) Hypertensive urgency Status: Acute (8) Nausea Status: Acute (9) Neck mass Status: Acute (10) Radiating chest pain Status: Acute (11) Slurred speech Status: Acute (12) TIA (transient ischemic attack) Status: Acute (13) Viral syndrome Status: Acute (14) Weakness Status: Acute Physical Exam Vital Signs Last Vital Signs Documentation Date Time Temp Pulse Resp B/P Pulse Ox O2 Delivery O2 Flow Rate FiO2 09/08/16 08:25 36.8 66 18 149/79 92 Room Air Physical Exam Constitutional: Level of Distress: NAD Neck: supple Lungs: Auscultation: no wheezing, no rales/crackles Cardiovascular: Heart Auscultation: RRR, no murmurs, no rubs, no gallops Abdomen: Inspection & Palpation: soft, non-distended Extremities: no cyanosis, no edema Neurologic: Gait & Station: pertinent finding (no focal deficits ) Assessment and Plan Assessment and Plan Impression: 66 year old female 1. paroxysmal supraventricular tachycardia. -regular RR interval, NOT atrial fibrillation. -Could be atrial flutter or PSVT. 2. History of neuropathy, falls 3. Upcoming shoulder revision surgery Plan: Although pt admitted due to concerns of possible TIA (transient memory impairment) , I am not convinced that patient's tachycardia explains her transient neurologic deficit, and given history of ambulatory dysfunction , would recommend continued clopidogrel rather than anticoagulation, as available data suggests SVT rather than AF or AFL at present. Transition to metoprolol succinate 25 mg daily for rhythm suppression. Echo is unremarkable. Plan for outpatient 7 day Zio media monitor to rule out occult AFL or AF on metoprolol and follow up with me in about 1 month at which time monitor results should be available. Pt agreeable to this approach. She is stable from a cardiac perspective for discharge today and for proposed shoulder surgery on 09/24, had seen Dr Cunningham in [place] for preop, but will follow with me at [facility] from this point . I have placed order for the media monitor and requested cardio follow up in [facility]. Shadi Ludwig, Laboratory Results Last 24 Hours Test 09/07/16 11:17 09/07/16 16:13 09/07/16 19:55 09/08/16 06:47 Bedside Glucose 129 mg/dl 110 mg/dl 126 mg/dl 135 mg/dl Test 09/08/16 07:10 White Blood Count 4.05 K/uL Red Blood Count 4.31 M/uL Hemoglobin 13.5 g/dL Hematocrit 39.7 % Mean Corpuscular Volume 92.1 fL Mean Corpuscular Hemoglobin 31.3 pg Mean Corpuscular Hemoglobin Concent 34.0 g/dl Platelet Count 233 K/uL Mean Platelet Volume 8.6 fL Neutrophils (%) (Auto) 52.6 % Lymphocytes (%) (Auto) 33.8 % Monocytes (%) (Auto) 10.9 % Eosinophils (%) (Auto) 2.0 % Basophils (%) (Auto) 0.2 % Neutrophils # (Auto) 2.13 K/uL Lymphocytes # (Auto) 1.37 K/uL Monocytes # (Auto) 0.44 K/uL Eosinophils # (Auto) 0.08 K/uL Basophils # (Auto) 0.01 K/uL RDW Standard Deviation 50.0 fL RDW Coefficient of Variation 14.7 % Immature Granulocyte % (Auto) 0.5 % Immature Granulocyte # (Auto) 0.02 K/uL Sodium Level 141 mmol/L Potassium Level 3.8 mmol/L Chloride Level 105 mmol/L Carbon Dioxide Level 25 mmol/L Anion Gap 11.0 mmol/L Blood Urea Nitrogen 9 mg/dl Creatinine 0.67 mg/dl Est Creatinine Clear Calc Drug Dose 93.9 ml/min Estimated GFR () 105.4 Estimated GFR (Non- 91.0 BUN/Creatinine Ratio 12.8 Random Glucose 143 mg/dl Calcium Level 9.1 mg/dl
[2016-09-08] MEDS ORDERED: TPRSR25 PO (12:29)
[2016-09-08 12:38] VITALS: BP 149/79; PULSE 66; TEMP 36.8; O2SAT 92
--- NOTE | 2016-09-08 12:42 | Progress Note ---
Medicine Progress Note Date & Time of Visit: Sep 08, 2016 at 12:33. Subjective noted to have 20 sec run of SVT yesterday afternoon associated with palpitations cardiology consulted, Metoprolol PO started no recurrence since patient sitting up in bed, feels much better in good spirits denies dizziness, dyspnea, chest pain, palpitations denies confusion, focal neuro deficits states she is back to baseline and agrees states she is ready and would like to be discharged today Objective Last 8 Hrs Date Time Temp Pulse Resp B/P Pulse Ox O2 Delivery O2 Flow Rate FiO2 09/08/16 12:00 Room Air 09/08/16 08:25 36.8 66 18 149/79 92 Room Air 09/08/16 08:00 Room Air Physical Exam: General- oriented x 3,not in distress, speaks in sentences with no effort Eyes- anicteric Neck- no JVD Lungs- clear to auscultation b/l, no rales Heart- nasir rate, regular rhythm; no murmurs Abdomen- normal bowel sounds, soft, nontender Extremities- no pretibial edema, no calf tenderness Neuro- alert, oriented x 3; no gross focal deficits Skin- warm & dry Laboratory Results: Last 24 Hours Test 09/07/16 16:13 09/07/16 19:55 09/08/16 06:47 09/08/16 07:10 Bedside Glucose 110 mg/dl 126 mg/dl 135 mg/dl White Blood Count 4.05 K/uL Red Blood Count 4.31 M/uL Hemoglobin 13.5 g/dL Hematocrit 39.7 % Mean Corpuscular Volume 92.1 fL Mean Corpuscular Hemoglobin 31.3 pg Mean Corpuscular Hemoglobin Concent 34.0 g/dl Platelet Count 233 K/uL Mean Platelet Volume 8.6 fL Neutrophils (%) (Auto) 52.6 % Lymphocytes (%) (Auto) 33.8 % Monocytes (%) (Auto) 10.9 % Eosinophils (%) (Auto) 2.0 % Basophils (%) (Auto) 0.2 % Neutrophils # (Auto) 2.13 K/uL Lymphocytes # (Auto) 1.37 K/uL Monocytes # (Auto) 0.44 K/uL Eosinophils # (Auto) 0.08 K/uL Basophils # (Auto) 0.01 K/uL RDW Standard Deviation 50.0 fL RDW Coefficient of Variation 14.7 % Immature Granulocyte % (Auto) 0.5 % Immature Granulocyte # (Auto) 0.02 K/uL Sodium Level 141 mmol/L Potassium Level 3.8 mmol/L Chloride Level 105 mmol/L Carbon Dioxide Level 25 mmol/L Anion Gap 11.0 mmol/L Blood Urea Nitrogen 9 mg/dl Creatinine 0.67 mg/dl Est Creatinine Clear Calc Drug Dose 93.9 ml/min Estimated GFR () 105.4 Estimated GFR (Non- 91.0 BUN/Creatinine Ratio 12.8 Random Glucose 143 mg/dl Calcium Level 9.1 mg/dl Test 09/08/16 10:59 Bedside Glucose 122 mg/dl Assessment & Plan ALTERED MENTAL STATUS/ GENERALIZED WEAKNESS/ SPEECH DIFFICULTY POSSIBLE TIA POSSIBLE MEDICATION RELATED - history of TIA treated with tPA in 11/2015; prior CVA workup essentially unremarkable except for mild abnormality on echo patient reports 1 day holter monitor after- negative - MRI brain and MRA head: unrevealing echo: -- Conclusions -- * The left ventricle is normal in size. * Left ventricular systolic function is normal. * Ejection Fraction = 60-65%. * The right ventricular systolic function is normal. * The left atrial size is normal. * Right atrial size is normal. * No cardiac source of emboli noteD - evaluated by Dr. Castellon- Neurologist recommend: episode likely related to PRN ativan, pain medications; advised to use with caution may have been a TIA episode as well, d/c Aspirin, take Plavix daily instead ff up with Neurologist Dr. Taylor in 1 month, EEG ordered at that time as well - Stroke risk factor modifications and recommendations: Blood pressure recommendations 130/80-110/70 Total cholesterol goal 100- 200 and LDL goal less than 70 Hemoglobin A1c goal less than 7 Encourage cardiovascular exercise at least 3 times a week for 30 minutes. 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 Ludwig in 1 month HYPERTENSION BP elevated in ER, likely secondary to significant left shoulder pain - continue Losartan 100mg po daily CHRONIC LEFT SHOULDER PAIN Follows with Dr. Funes- planned for surgery this September L shoulder x-ray no fracture, + chronic degenerative and postoperative change -- will be following with Dr. Ludwig for Cardiology Pre-Operative Evaluation DM TYPE 2 Not on medication Insulin sliding scale coverage given A1c 6.5 DYSLIPIDEMIA Did not tolerate Crestor or Lipitor in the past due to muscle pains consider trial of Pravastatin DVT PROPHYLAXIS Lovenox SQ given DISPOSITION d/c home today ff up with PCP in 3-5 days Cardiac Monitoring per Cardio ff up with Transport Medic in 1 month ff up with Dr. Taylor in 1 month Current Inpatient Medications: Current Inpatient Medications Medications (Trade) Dose Ordered Sig/Valente Route Start Time Stop Time Status Last Admin Dose Admin Enoxaparin Sodium (Lovenox Inj) 40 mg HS SC 09/06/16 21:00 10/06/16 20:59 09/07/16 21:05 40 MG Acetaminophen (Tylenol Tab) 650 mg Q4H PRN PO 09/06/16 17:30 10/06/16 17:29 Ondansetron HCl (Zofran Inj) 4 mg Q6H PRN IV 09/06/16 17:30 10/06/16 17:29 Clopidogrel Bisulfate (plAVix TAB) 75 mg QAM PO 09/07/16 09:00 10/07/16 08:59 09/08/16 08:01 75 MG Miscellaneous Information (Pharmacist Discharge Med Rec Consult) 1 ea UD PRN N/A 09/06/16 17:30 10/06/16 17:29 Oxycodone/ Acetaminophen (Percocet 5-325mg Tab) 1 tab PO q6H PRN pain ra... Q6H PRN PO 09/06/16 17:45 09/20/16 17:44 09/08/16 08:00 2 TAB Albuterol (Ventolin Hfa Inhaler) 2 puffs Q4 PRN INH 09/06/16 18:00 10/06/16 17:59 Carisoprodol (Soma Tab) 350 mg BID PRN PO 09/06/16 18:00 10/06/16 17:59 Doxepin HCl (Sinequan Cap) 75 mg QAM PO 09/07/16 09:00 10/07/16 08:59 09/08/16 08:01 75 MG Doxepin HCl (Sinequan Cap) 150 mg QPM PO 09/06/16 21:00 10/06/16 20:59 09/07/16 21:03 150 MG Metoclopramide HCl (Reglan Tab) 10 mg AC PO 09/07/16 07:00 10/07/16 07:59 09/08/16 11:58 10 MG Promethazine HCl (Phenergan Supp) 25 mg Q6H PRN AL 09/06/16 18:00 10/06/16 17:59 Promethazine HCl (Phenergan Tab) 25 mg Q6H PRN PO 09/06/16 18:00 10/06/16 17:59 09/07/16 19:27 25 MG Temazepam (Restoril Cap) 15 mg HS PRN PO 09/06/16 18:00 10/06/16 17:59 09/07/16 21:59 15 MG Cholecalciferol (Vitamin D Tab) 1,000 inter.unit TID PO 09/06/16 21:00 10/06/16 20:59 09/08/16 08:03 1,000 INTER.UNIT Multivitamins/ Minerals (Multivitamin W/ Minerals Tab) 1 tab QAM PO 09/07/16 09:00 10/07/16 08:59 09/08/16 08:01 1 TAB Pantoprazole Sodium (Protonix Tab) 40 mg QAM PO 09/07/16 09:00 10/07/16 08:59 09/08/16 08:01 40 MG Ergocalciferol (Vitamin D Cap) 50,000 interunit SuTuTh@0900 PO 09/07/16 09:00 10/07/16 08:59 09/07/16 08:15 50,000 INTERUNIT Insulin Aspart (novoLOG ASPART) SLIDING SCALE If C... ACHS SC 09/06/16 21:00 10/06/16 20:59 09/08/16 08:06 2 UNITS Glucose (Glucose 40% Gel) 15-30 GRAMS 15 GRAMS... UD PRN PO 09/06/16 18:00 10/06/16 17:59 Glucose (Glucose Chew Tab) 4-8 Tablets 4 Tabl... UD PRN PO 09/06/16 18:00 10/06/16 17:59 Dextrose (Dextrose 50% 50ML Syringe) 25-50ML OF 50% DW IV FOR... UD PRN IV 09/06/16 18:00 10/06/16 17:59 Glucagon (Glucagon Inj) 1 mg UD PRN SQ 09/06/16 18:00 10/06/16 17:59 Miscellaneous Information (Order Awaiting Action) 1 ea QS N/A 09/07/16 00:00 10/07/16 00:00 Miscellaneous Information (Order Awaiting Action) 1 ea QS N/A 09/07/16 00:00 10/07/16 00:00 Morphine Sulfate (MoRPHine SULFATE INJ) 2 mg DAILY PRN IV 09/06/16 18:45 09/20/16 18:44 09/07/16 19:28 2 MG Hydralazine HCl (HydrALAZINE INJ) 5 mg Q6 PRN IV. 09/06/16 18:45 10/06/16 18:44 Miscellaneous (Iv Fluids Completed) 1 ea PRN PRN N/A 09/06/16 20:15 09/06/17 20:14 Lorazepam (Ativan Tab) 1 mg DAILY@0800 PO 09/07/16 08:00 10/07/16 07:59 09/08/16 08:00 1 MG Losartan Potassium (coZAAR TAB) 50 mg QAM PO 09/08/16 09:00 10/08/16 08:59 09/08/16 08:03 50 MG Lorazepam (Ativan Tab) 0.5 mg Q6H PRN PO 09/07/16 15:45 10/07/16 15:44 09/07/16 21:59 0.5 MG Metoprolol Succinate (Toprol Xl Tab) 25 mg QAM PO 09/09/16 09:00 10/09/16 08:59
[2016-09-08] MEDS ORDERED: PANT1TAB48 PO (12:48)
--- NOTE | 2016-09-08 12:52 | Discharge Summary ---
Discharge Summary Date of Service Sep 08, 2016. Discharge Summary Admission Date: Sep 06, 2016 at 17:30 Discharge Date: Sep 08, 2016 Discharge Disposition: Home Principal Diagnosis: ALTERED MENTAL STATUS/ GENERALIZED WEAKNESS/ SPEECH DIFFICULTY POSSIBLE TIA POSSIBLE MEDICATION RELATED Secondary Diagnoses/Problems: PLEASE REFER TO HOSPITAL COURSE BELOW. Procedures: BRAIN MRI: IMPRESSION: No acute intracranial abnormality. Chronic age-related change. CAROTID US: No hemodynamically significant stenosis seen within the carotid arteries. Mild plaque formation bilaterally HEAD MRA: IMPRESSION: No significant stenosis, occlusion, or aneurysm within the tribe of [place]. Consultations: NEUROLOGIST DR. CASTELLON, YACHT RIGGER DR. AGUIRRE Pending Studies/Follow-Up: PLEASE REFER TO HOSPITAL COURSE BELOW. Medication Reconciliation New Medications: Pantoprazole (Protonix) 40 Mg Tab 1 TAB PO DAILY for 30 Days, #30 TAB 0 Refills Clopidogrel Bisulfate (Clopidogrel) 75 Mg Tab 75 MG PO QAM for 30 Days, #30 TAB 2 Refills Losartan Potassium (Losartan Potassium) 50 Mg Tab 100 MG PO QAM for 30 Days, #60 TAB Metoprolol Succinate (Metoprolol Succinate ER) 25 Mg Tabcr 25 MG PO QAM for 30 Days, #30 TABS 2 Refills Changed Medications: Oxycodone/Acetaminophen 5MG/325MG (Percocet 5MG/325MG) Tab 1 TABLET PO QID PRN for Pain for 7 Days, TAB (Medication details modified) Continued Medications: Albuterol (Ventolin Hfa) 60 Puffs/5400 Mcg Aers 2 PUFFS INH Q4 PRN for SOB/Wheezing Biotin (Cvs Biotin) 10 Mg Cap 10 MG PO DAILY Carisoprodol (Soma) 350 Mg Tab 350 MG PO BID PRN for Pain, TAB Cholecalciferol (D 1000) 1,000 Unit Cap 1 CAP PO TID Cyclosporine (Ophth) (Restasis) 0.05 % Emu 1 DROPS OP BID for 30 Days, #60 VIAL 3 Refills Doxepin Hcl (Doxepin) 75 Mg Cap 150 MG PO QPM Doxepin Hcl (Doxepin) 75 Mg Cap 75 MG PO QAM Ergocalciferol (Vitamin D) 50,000 Interunit Cap 63190 INTER.UNIT PO 3XWK TAKES MON,WED,FRI Estrogens, Conjugated (Premarin) 14 Appln/30 Gm Cr 0.5 GM TOP 3XWK Flunisolide (Nasal) (Flunisolide) 0.025 % Spr 2 SPRY SALOMÓN DAILY PRN for allergies, #25 ML 3 Refills Lorazepam (Lorazepam) 1 Mg Tab 1 MG PO QAM Metoclopramide (Reglan) 10 Mg Tab 10 MG PO AC, TAB Pediatric Multiple Vitamin W/ (Multivitamin Gummies Chil) 1 Chw Chw 1 TAB PO QAM Promethazine Hcl (Phenergan Suppository) 25 Mg Supp 25 MG HI Q6H PRN for Nausea, #10 SUPP Promethazine Hcl (Phenergan) 25 Mg Tab 25 MG PO Q6H PRN for Nausea, TAB Temazepam (Temazepam) 15 Mg Cap 15 MG PO HS PRN for Sleep Discontinued Medications: Aspirin (Aspirin Ec) 81 Mg Tab 81 MG PO QAM Omeprazole (Prilosec) 40 Mg Cap 40 MG PO QAM Admission Information HPI (per Admitting provider): This is a 66 year old female with PMH of TIA, hypertension, DM type 2, obesity, and other problems listed below who presents to the ED with confusion, ambulatory dysfunction, and speech abnormality. Patient had a TIA on 11/24/2015 at [facility] and transferred to [facility]. She was treated with tPA with resolution of her symptoms. Her prior CVA workup was essentially unremarkable except for mild abnormality on echo. She was seen in f/u by [facility] neurology but planned to re- establish with Dr. Choudhury in the future. Approx 3 weeks ago she was treated for parotid gland infection right sided by Dr. Cadet with Augmentin x 10 days with improvement. Then approx 2 weeks ago pt had an episode of confusion and fell ambulating to the restroom. She was not evaluated at that time but symptoms resolved quickly. Then starting yesterday afternoon reports progressive generalized weakness, ambulatory dysfunction, abnormal unintelligible speech, and confusion. Pt usually ambulates unassisted but at home she was unable to ambulate without extensive assistance. Patient fell once last night and once this morning but she does not accurately remember the details. did not witness the falls but heard a thump from the next room. Last night she fell out of bed and this morning when ambulating in the bedroom. No definite head trauma. No reported LOC. She fell onto her left shoulder which exacerbated her chronic pain for which she takes Percocet QID chronically. states patient's recall of recent events is usually intact, but today she is having trouble recalling events of past 24 hours. Once patient arrived to the ER her generalized weakness and speech abnormality have resolved to baseline per , but he states her mental status is still off from baseline. Pt is oriented to person and place but is slightly off on the date which he states is abnormal for her. Pt has chronic visual difficulties related to dry eyes but denies any change from baseline. Pt denies fevers, chills, headache, swallowing difficulty, facial droop, focal numbness or weakness, chest pain, SOB, abdominal pain, vomiting, diarrhea, urinary changes. Physical Exam (per Admitting): General Appearance: WD/WN, no apparent distress Head: normocephalic, atraumatic Eyes: normal inspection, PERRL, EOMI ENT: hearing grossly normal, pharynx normal, + pertinent finding (mild right parotid swelling) Neck: supple, no carotid bruits, trachea midline Respiratory/Chest: lungs clear, normal breath sounds, no respiratory distress Cardiovascular: regular rate, rhythm, no murmur Abdomen/GI: normal bowel sounds, non tender, soft Extremities/Musculoskelatal: no calf tenderness, no pedal edema, + pertinent finding (left shoulder pain with range of motion) Neurologic/Psych: 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 poor recall of recent events. gait is normal. strength 5/5 all extremities. no sensory deficit to light touch. ) Skin: normal color, warm/dry Hospital Course ALTERED MENTAL STATUS/ GENERALIZED WEAKNESS/ SPEECH DIFFICULTY POSSIBLE TIA POSSIBLE MEDICATION RELATED - history of TIA treated with tPA in 11/2015; prior CVA workup essentially unremarkable except for mild abnormality on echo patient reports 1 day holter monitor after- negative - MRI brain and MRA head: unrevealing echo: -- Conclusions -- * The left ventricle is normal in size. * Left ventricular systolic function is normal. * Ejection Fraction = 60-65%. * The right ventricular systolic function is normal. * The left atrial size is normal. * Right atrial size is normal. * No cardiac source of emboli noteD - evaluated by Dr. Castellon- Neurologist recommend: episode likely related to PRN ativan, pain medications; advised to use with caution may have been a TIA episode as well, d/c Aspirin, take Plavix 75mg daily instead changed Prilosec to Pantoprazole (less interaction with Plavix, consider tapering off PPI if possible) ff up with Neurologist Dr. Choudhury in 1 month, EEG ordered at that time as well - Stroke risk factor modifications and recommendations: Blood pressure recommendations 130/80-110/70 Total cholesterol goal 100- 200 and LDL goal less than 70 Hemoglobin A1c goal less than 7 Encourage cardiovascular exercise at least 3 times a week for 30 minutes. SVT EPISODE patient reports intermittent palpitations at home noted to have 20 second episode of SVT via court usher, associated with Palpitations Cardiology consulted started on Metoprolol PO, no recurrence recommend: continue Metoprolol 25mg po daily Plavix daily Outpatient 7 day Zio patch cardiac monitoring to be arranged by Cardiology as outpatient ff up with Dr. Aguirre in 1 month HYPERTENSION BP elevated in ER, likely secondary to significant left shoulder pain - continue Losartan 100mg po daily CHRONIC LEFT SHOULDER PAIN Follows with Dr. Funes- planned for surgery this September shoulder x-ray no fracture, + chronic degenerative and postoperative change -- will be following with Dr. Aguirre for Cardiology Pre-Operative Evaluation DM TYPE 2 Not on medication Insulin sliding scale coverage given A1c 6.5 DYSLIPIDEMIA Did not tolerate Crestor or Lipitor in the past due to muscle pains consider trial of Pravastatin DVT PROPHYLAXIS Lovenox SQ given DISPOSITION d/c home today ff up with PCP in 3-5 days Cardiac Monitoring per Cardio ff up with Disintegrator in 1 month ff up with Dr. Choudhury in 1 month Total time spent on discharge = 45 minutes This includes examination of the patient, discharge planning, medication reconciliation, and communication with other providers. Discharge Instructions Discharge Instructions Date of Service Sep 08, 2016. Admission Reason for Admission: Altered Mental Status Discharge Discharge Diagnosis / Problem: ALTERED MENTAL STATUS Discharge Goals Goal(s): Diagnostic testing, Therapeutic intervention Activity Recommendations Activity Limitations: as noted below (NO HEAVY EXERTION UNTIL RE-EVALUATED BY PRIMARY CARE PHYSICIAN) . Instructions / Follow-Up Instructions / Follow-Up PLEASE REVIEW YOUR NEW MEDICATION LIST AND FOLLOW INSTRUCTIONS CAREFULLY. CALL PRIMARY CARE PHYSICIAN OR RETURN TO ER IMMEDIATELY IF WITH RECURRENCE OF SYMPTOMS. IF WITH PERSISTENT PALPITATIONS, CHEST PAIN, SHORTNESS OF BREATH, CALL 911. FOLLOW UP WITH DR. ADAMSON ON Thursday09/10/16 AT 8:30AM. FOLLOW UP WITH [facility] YACHT RIGGER DR. AGUIRRE FOR CARDIAC MONITORING ( CLINIC TO CALL PATIENT). TEL NO. FOLLOW WITH DR. CHOUDHURY IN 1 MONTH. Risk Factors for Stroke: You can reduce your chances of stroke by working with your medical provider to adopt a healthy lifestyle. Some specific ways to lower your chance of stroke are: * If you are a smoker, now is the time to stop smoking cigarettes * If you are diabetic, improve the control of your blood sugars * Avoid excessive amounts of alcohol * Control high blood pressure * Lose weight if you are overweight * Be sure to lead an active lifestyle * Eat a healthy diet low in salt, cholesterol and fat You should know about other risk factors for stroke that you are unable to control. These include: * Age 55 years or older * Male gender * Certain racial groups: , or / * Family History of Stroke, Mini stroke or Heart Attack * Sickle Cell Disease Follow Up: It is important for you to keep your follow up appointments with your medical provider. Current Hospital Diet Patient's current hospital diet: Diabetes Type 2 Diet, AHA Diet (Heart Healthy) Discharge Diet Recommended Diet: AHA Diet (Heart Healthy) Procedures Procedures Performed: BRAIN MRA, HEAD MRA, CAROTID ULTRASOUND Pending Studies Studies pending at discharge: yes List of pending studies: CARDIAC MONITORING C/O YACHT RIGGER; EEG C/O NEUROLOGIST Laboratory Results Hemoglobin A1c Test 09/06/16 12:52 Range/Units Lipid Panel Test 09/07/16 07:17 Range/Units Triglycerides Level 368 H 0-150 mg/dl Cholesterol Level 243 H 0-200 mg/dl HDL Cholesterol 56 mg/dl Cholesterol/HDL Ratio 4.3 LDL Cholesterol, Calculated 113 mg/dl Medical Emergencies . Who to Call and When: Medical Emergencies: Call 911 immediately if you experience any of the following warning signs and symptoms of Stroke: * Sudden numbness or weakness of the face, arm or leg, especially on one side of the body * Sudden confusion, trouble speaking or understanding * Sudden trouble seeing in one or both eyes * Sudden trouble walking, dizziness, loss of balance or coordination * Sudden severe headache with no cause Do not delay calling 911 if you experience any warning signs or symptoms of a stroke. Delay in seeking medical attention may affect what treatments can be given to you. . Non-Emergent Contact Non-Emergency issues call your: Primary Care Provider Call Non-Emergent contact if: you have a fever, your pain is not controlled, you have any medication questions . Past History Medical & Surgical History: (1) DM2 (diabetes mellitus, type 2) (2) Asthma (3) Morbid obesity (4) Hyperlipidemia (5) GERD (gastroesophageal reflux disease) (6) Anxiety (7) Hypertension (8) C. difficile diarrhea (9) Sacral back pain (10) Slurred speech (11) Ambulatory dysfunction (12) Weakness (13) H/O spinal fusion (14) Previous section (15) S/P parathyroidectomy (16) S/P cholecystectomy (17) Total knee replacement status (18) S/p left shoulder surgery (19) S/P appendectomy (20) History of carpal tunnel surgery (21) H/O gastric bypass (22) S/P tonsillectomy and adenoidectomy (23) H/O hernia repair . "Provider Documentation" section prepared by Pedro Fishman. Stroke Core Measures Reason no t-PA for Stroke: Treatment not indicated Reason no antithrom by day 2: Treatment provided - N/A Reason no antithrom at D/C: Treatment provided - N/A Reason no statin at D/C: Treatment not tolerated Reason no anticoag w/a fib: Treatment not indicated VTE Core Measure Inpt VTE Proph given/why not?: Enoxaparin (Lovenox)SQ [place] Drug Monitoring Program Search Results: patient reviewed within database
--- NOTE | 2016-09-08 14:04 | Pharmacy Progress Note ---
Pharmacist Stroke Counseling Date of Service Sep 08, 2016. Scope Pharmacy has been consulted to provide medication discharge counseling for this patient admitted with ischemic stroke/hemorrhagic stroke/ transient ischemic attack as per the Pharmacist Discharge Counseling for Stroke Patients Protocol. Medications on Discharge New Medications: Pantoprazole (Protonix) 40 Mg Tab 1 TAB PO DAILY for 30 Days, #30 TAB 0 Refills Clopidogrel Bisulfate (Clopidogrel) 75 Mg Tab 75 MG PO QAM for 30 Days, #30 TAB 2 Refills Losartan Potassium (Losartan Potassium) 50 Mg Tab 100 MG PO QAM for 30 Days, #60 TAB Metoprolol Succinate (Metoprolol Succinate ER) 25 Mg Tabcr 25 MG PO QAM for 30 Days, #30 TABS 2 Refills Changed Medications: Oxycodone/Acetaminophen 5MG/325MG (Percocet 5MG/325MG) Tab 1 TABLET PO QID PRN for Pain for 7 Days, TAB (Medication details modified) Continued Medications: Albuterol (Ventolin Hfa) 60 Puffs/5400 Mcg Aers 2 PUFFS INH Q4 PRN for SOB/Wheezing Biotin (Cvs Biotin) 10 Mg Cap 10 MG PO DAILY Carisoprodol (Soma) 350 Mg Tab 350 MG PO BID PRN for Pain, TAB Cholecalciferol (D 1000) 1,000 Unit Cap 1 CAP PO TID Cyclosporine (Ophth) (Restasis) 0.05 % Emu 1 DROPS OP BID for 30 Days, #60 VIAL 3 Refills Doxepin Hcl (Doxepin) 75 Mg Cap 150 MG PO QPM Doxepin Hcl (Doxepin) 75 Mg Cap 75 MG PO QAM Ergocalciferol (Vitamin D) 50,000 Interunit Cap 25273 INTER.UNIT PO 3XWK TAKES MON,WED,FRI Estrogens, Conjugated (Premarin) 14 Appln/30 Gm Cr 0.5 GM TOP 3XWK Flunisolide (Nasal) (Flunisolide) 0.025 % Spr 2 SPRY SALOMÓN DAILY PRN for allergies, #25 ML 3 Refills Lorazepam (Lorazepam) 1 Mg Tab 1 MG PO QAM Metoclopramide (Reglan) 10 Mg Tab 10 MG PO AC, TAB Pediatric Multiple Vitamin W/ (Multivitamin Gummies Chil) 1 Chw Chw 1 TAB PO QAM Promethazine Hcl (Phenergan Suppository) 25 Mg Supp 25 MG SD Q6H PRN for Nausea, #10 SUPP Promethazine Hcl (Phenergan) 25 Mg Tab 25 MG PO Q6H PRN for Nausea, TAB Temazepam (Temazepam) 15 Mg Cap 15 MG PO HS PRN for Sleep Discontinued Medications: Aspirin (Aspirin Ec) 81 Mg Tab 81 MG PO QAM Omeprazole (Prilosec) 40 Mg Cap 40 MG PO QAM Action The above medications, specifically ones for stroke treatment/prophylaxis, have been reviewed in detail with the patient and her spouse, Josue, prior to discharge. This includes indication, common adverse reactions, drug interactions, and medication administration. Medication counseling has been employed using the teach-back method to ensure understanding. Outcome The patient and spouse have demonstrated understanding of the medications. Please note, they are aware that the pharmacist will call them within 72 hours post-discharge to confirm that the appropriate medications are being taken and answer any further medication related questions the patient might have at that time. Contact information Individual to be contacted: Patient: Karmen (permission given to speak with spouse, Josue, as well) Relationship to patient : Spouse, Josue, was present with the discharge counselling Phone number: Best time to call: No preference, both morning and afternoon are typically good times Additional comments: Discussed a two medication switch in regards to stroke management: Stop aspirin and omeprazole and start clopidogrel and pantoprazole. Discussed the rationale of stopping omeprazole due to the drug interaction with clopidogrel. The spouse already takes pantoprazole so was comfortable with the switch. The patient mentioned her past intolerance of statin drugs. The patient also brought up the addition of metoprolol by Cardiology, so discussed the concept of controlling heart rate in treating SVT. The patient mentioned that she had a gastric bypass in the past and discussed her concern in absorbing new products. Given the release mechanism of clopidogrel and pantoprazole, this should not be a problem. Also discussed the importance of compliance with stroke prevention. The patient generally takes her medications in the morning, so I affirmed her that both clopidogrel and pantoprazole would be best taken with her AM medications. Thank you for allowing pharmacy to be involved in the care of this patient. Please call [phone] or [phone] with any additional questions
[2016-09-08] MEDS ORDERED: CLOP1TAB15 PO (16:02)
[2016-09-08] MEDS ORDERED: LOSA1TAB38 PO (16:02)
[2016-09-08] MEDS ORDERED: OXYC-57 PO (16:04)
[2016-09-08] MEDS ORDERED: METO25TA3 PO (16:04)
[2016-09-08] MEDS ORDERED: PANT40TA PO (16:04)
[2016-09-08] MEDS ORDERED: TEMA15CA4 PO (16:06)
[2016-09-08] MEDS ORDERED: PROM25SU28 PR (16:06)
[2016-09-08] MEDS ORDERED: DOXE50CA3 PO ×2 (16:08)
[2016-09-09] MEDS ORDERED: METOPROLOL SUCC 25MG EXT REL TAB PO SCH (09:00)
--- NOTE | 2016-09-12 13:28 | Pharmacy Progress Note ---
Pharmacist Post D/C Phone Note Date of phone call: Sep 10, 2016. Individual with whom pharmacist spoke to: Karmen (patient) The following questions were reviewed during the phone call with responses listed below each: Can you tell me the medications that you are currently taking as well as when and how you take each medication? Reported Home Medications Medications Dose Route/Sig Max Daily Dose Days Date Category Dose Instructions [place] (Doxepin HCl) 50 Mg Cap 150 Mg PO HS 09/08/16 Reported Sinequan (Doxepin HCl) 50 Mg Cap 75 Mg PO QAM 09/08/16 Reported Restoril (Temazepam) 15 Mg Cap 15 Mg PO HS PRN 09/08/16 Reported Phenergan Suppository (Promethazine HCl) 25 Mg Supp 25 Mg MT Q4H PRN 09/08/16 Reported Percocet 5MG/325MG (Oxycodone/Acetaminophen) Tab 1 Tablet PO Q4H PRN 09/08/16 Reported PAIN Protonix (Pantoprazole Sodium) 40 Mg Tab 40 Mg PO QAM 09/08/16 Reported Toprol-Xl (Metoprolol Succinate) 25 Mg Tabcr 25 Mg PO QAM 09/08/16 Reported Cozaar (Losartan Potassium) 100 Mg Tab 100 Mg PO QAM 09/08/16 Reported Plavix (Clopidogrel Bisulfate) 75 Mg Tab 75 Mg PO QAM 09/08/16 Reported PT WILL CHECK WITH SURGEON/BUILD TECHNICIAN Reglan (Metoclopramide HCl) 10 Mg Tab 10 Mg PO AC 09/06/16 Reported Flunisolide (Flunisolide (Nasal)) 0.025 % Spr 2 [place] SALOMÓN DAILY PRN 09/06/16 Reported Premarin (Estrogens, Conjugated) 14 Appln/30 Gm Cr 0.5 Gm TOP 3XWK 09/06/16 Reported Ventolin Hfa (Albuterol) 60 Puffs/5400 Mcg Aers 2 Puffs INH Q4 PRN 09/06/16 Reported Phenergan (Promethazine HCl) 25 Mg Tab 25 Mg PO Q6H PRN 09/06/16 Reported Restasis (Cyclosporine (Ophth)) 0.05 % Emu 1 Drops OP BID 30 09/06/16 Reported D 1000 (Cholecalciferol) 1,000 Unit Cap 1 Cap PO TID 09/06/16 Reported Soma (Carisoprodol) 350 Mg Tab 350 Mg PO BID PRN 09/06/16 Reported Cvs Biotin (Biotin) 10 Mg Cap 10 Mg PO QAM 09/06/16 Reported Vitamin D (Ergocalciferol) 50,000 Interunit Cap 50,000 Inter.unit PO 3XWK 07/08/16 Reported TAKES MON,WED,FRI Multivitamin Gummies Chil (Pediatric Multiple Vitamin W/) 1 Chw Chw 1 Tab PO QAM 04/08/16 Reported Lorazepam 1 Mg Tab 1 Mg PO QAM PRN 01/18/16 Reported When have you missed any doses of your medications? - No What questions do you have about your medications? - Concerned about outpatient vs. inpatient administration of Percocet. Discussed difference of Q6H vs. QID and when next dose can be administered - Concerned about long-term effects of PPI. Patient on for GERD, diagnosed prior to losing 200 lbs. 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 What problems are you having obtaining your medications? - None. Started clopidogrel and pantoprazole already When is your next appointment with your primary care doctor? - Saw PCP 09/10. No changes to medications noted. No cholesterol medication added. Additional comments: - I confirmed she had stopped both aspirin and omeprazole - Karmen noted she was pleased with her care at [facility] As per the Pharmacist Discharge Counseling for Stroke Patients Protocol, this phone call has been completed within 72 hours of discharge. Thank you for allowing us to be involved in the care of this patient.
[2016-12-27] MEDS ORDERED: ULT50X PO (10:19)
[2016-12-27] MEDS ORDERED: SNQ50 PO (10:19)
[2016-12-27] MEDS ORDERED: AMB5 PO (10:19)
[2016-12-27] MEDS ORDERED: CZR50 PO (10:19)
[2017-01-31] MEDS ORDERED: PEDI1CHW95 PO (10:51)
[2017-01-31] MEDS ORDERED: PRT/40 PO (15:52)
[2017-01-31] MEDS ORDERED: LOSA100T65 PO (15:52)
[2017-01-31] MEDS ORDERED: SNQ/50 PO (15:52)
[2017-01-31] MEDS ORDERED: TPRSR/25 PO (15:52)
[2017-01-31] MEDS ORDERED: PLV75 PO (15:52)
[2017-01-31] MEDS ORDERED: ONDA-63 PO (15:52)
[2017-01-31] MEDS ORDERED: VNTHFA/IN INH (15:52)
[2017-01-31] MEDS ORDERED: RGL/5 PO (15:52)
[2017-01-31] MEDS ORDERED: CYNI1000 IM (15:56)
[2017-01-31] MEDS ORDERED: FLUN0.02 NAE (17:48)
[2017-01-31] MEDS ORDERED: BIOT10CA PO (17:48)
[2017-01-31] MEDS ORDERED: CYCL0.052 OPB (17:48)
[2017-02-02] MEDS ORDERED: KFL250 PO (13:27)
== END 2016-09-08 13:30 | disposition home or self-care (01) | DRG 69 ==
LOC: ENRESERVTM → ENRESERVDT → C.EDB 11:49 → C.2T 17:30 → EDBEDREQ 17:44
PROVIDERS: ADMIT Internal Medicine; ATTEND Internal Medicine
DX: G45.9 Transient cerebral ischemic attack, unspecified (principal); Z68.41 Body mass index [BMI] 40.0-44.9, adult; I47.1 Supraventricular tachycardia; R41.82 Altered mental status, unspecified; R53.1 Weakness; R47.9 Unspecified speech disturbances; T40.2X5A Adverse effect of other opioids, initial encounter; T42.4X5A Adverse effect of benzodiazepines, initial encounter; G89.29 Other chronic pain; G89.11 Acute pain due to trauma; M25.512 Pain in left shoulder; W01.190A Fall on same level from slipping, tripping and stumbling with subsequent striking against furniture, initial encounter; Y92.003 Bedroom of unspecified non-institutional (private) residence as the place of occurrence of the external cause; R29.6 Repeated falls; G62.9 Polyneuropathy, unspecified; R26.2 Difficulty in walking, not elsewhere classified; E11.49 Type 2 diabetes mellitus with other diabetic neurological complication; I10 Essential (primary) hypertension; E78.5 Hyperlipidemia, unspecified; K21.9 Gastro-esophageal reflux disease without esophagitis; J45.909 Unspecified asthma, uncomplicated; H04.129 Dry eye syndrome of unspecified lacrimal gland; F41.9 Anxiety disorder, unspecified; E66.9 Obesity, unspecified; Z98.1 Arthrodesis status; Z96.612 Presence of left artificial shoulder joint; Z96.659 Presence of unspecified artificial knee joint; Z82.3 Family history of stroke; Z98.84 Bariatric surgery status; Z79.891 Long term (current) use of opiate analgesic; Z79.82 Long term (current) use of aspirin; Z79.890 Hormone replacement therapy; Z79.899 Other long term (current) drug therapy

== ENCOUNTER 2016-09-30 13:41 | Emergency (ER) | payer MEDICARE, OTHER ==
[~2016-09-30] VITALS: Ht 160 cm; Wt 100.7 kg
[~2016-09-30 13:41] MED LIST changes: -ASPI81TA28 PO; -BIOT1CAP3 PO; +CARI350T28 PO; -CHOL1000 PO; +CHOL100041 PO; +CLOP1TAB15 PO; +DOXE50CA3 PO; -DXP/75 PO; +LOSA1TAB38 PO; +METO-157 PO; +METO25TA3 PO; -OMEP40CA41 PO; +PANT40TA PO; +PRMVC TOP; +PROM25TA9 PO; +PRVHFAIN INH; -RST15 PO; +TEMA15CA4 PO
[2016-09-30 13:46] VITALS: TEMP 36.8; Ht 160 cm; Wt 100.7 kg
[2016-09-30] MEDS ORDERED: SODIUM CHLORIDE 0.9% 1000ML 1,000 ML IV STA (13:56)
[2016-09-30] MEDS ORDERED: ONDANSETRON INJ 2 MG/ML 2 ML VIAL IV STA (13:58)
--- NOTE | 2016-09-30 13:59 | EMERGENCY ROOM VISIT NOTE ---
History Report prepared by Tano: Cristobal Alvarado Under the Supervision of: Dr. Mariano Gutierrez D.O. First contact with patient: 13:51 Chief Complaint: ILLNESS Stated Complaint: NAUSEA, GENERALIZED WEAKNESS History of Present Illness The patient is a 66 year old female who presents to the Emergency Room with complaints of a persistent illness that started 3 days ago. She says that she has been dizzy, and has had black stools. The dizziness worsened today. She notes that the black stools started 2 weeks ago, but she has been taking milk of magnesia. The patient describes the dizziness as a weakness, and she has to be careful when she walks. She needs to be careful not to fall or faint. The patient also notes episodes of nausea and vomiting, and she has a headache today. She has had a loss of appetite as well. The patient thinks she is dehydrated. She denies any abdominal pain, chest pain, shortness of breath, or leg swelling. The patient says she is overdue on her colonoscopy. She is on a Holter monitor for heart palpitations. Source of History: patient Onset: 3 days ago Position: other (global - illness) Timing: other (persistent) Associated Symptoms: + headache, + nausea, + vomiting, + weakness, No SOB, No abdominal pain, No chest pain Note: Associated symptoms: Dizziness. Loss of appetite. Denies leg swelling. Review of Systems See HPI for pertinent positives & negatives. A total of 10 systems reviewed and were otherwise negative. Past Medical & Surgical Medical Problems: (1) Anxiety (2) Asthma (3) C. difficile diarrhea (4) DM2 (diabetes mellitus, type 2) (5) GERD (gastroesophageal reflux disease) (6) Hyperlipidemia (7) Hypertension (8) Morbid obesity (9) Sacral back pain Surgical Problems: (1) H/O gastric bypass (2) H/O hernia repair (3) H/O spinal fusion (4) History of carpal tunnel surgery (5) Previous section (6) S/P appendectomy (7) S/P cholecystectomy (8) S/p left shoulder surgery (9) S/P parathyroidectomy (10) S/P tonsillectomy and adenoidectomy (11) Total knee replacement status Family History Diabetes mellitus Gallbladder disease Heart disease Hypertension Social History Smoking Status: Never Smoker Alcohol Use: none Drug Use: none Marital Status: Housing Status: lives with significant other Current/Historical Medications Scheduled Biotin (Cvs Biotin), 10 MG PO QAM Cholecalciferol (D 1000), 1 CAP PO TID Clopidogrel (Plavix), 75 MG PO QAM Cyclosporine (Ophth) (Restasis), 1 DROPS OP BID Doxepin (Sinequan), 75 MG PO QAM Doxepin (Sinequan), 150 MG PO HS Ergocalciferol (Vitamin D), 50,000 INTER.UNIT PO 3XWK Estrogens, Conjugated (Premarin), 0.5 GM TOP 3XWK Losartan Potassium (Cozaar), 100 MG PO QAM Metoclopramide (Reglan), 10 MG PO AC Metoprolol Succ (Toprol Xl) (Toprol-Xl), 25 MG PO QAM Pantoprazole (Protonix), 40 MG PO QAM Pediatric Multiple Vitamin W/ (Multivitamin Gummies Chil), 1 TAB PO QAM Scheduled PRN Albuterol (Ventolin Hfa), 2 PUFFS INH Q4 PRN for SOB/Wheezing Carisoprodol (Soma), 350 MG PO BID PRN for Pain Flunisolide (Nasal) (Flunisolide), 2 SPRY SALOMÓN DAILY PRN for allergies Lorazepam (Lorazepam), 1 MG PO QAM PRN for PRN Oxycodone/Acetaminophen 5MG/325MG (Percocet 5MG/325MG), 1 TABLET PO Q4H PRN for Pain Promethazine Hcl (Phenergan), 25 MG PO Q6H PRN for Nausea Promethazine Hcl (Phenergan Suppository), 25 MG [place] Q4H PRN for Nausea Temazepam (Restoril), 15 MG PO HS PRN for PRN Allergies Coded Allergies: Atorvastatin (Verified Allergy, Unknown, myalgias per PCP note , 09/30/16) Rosuvastatin (Unverified Allergy, Unknown, MUSCLE ACHES, 09/30/16) CI Pigment Blue 63 (Verified Adverse Reaction, Mild, PSYCHOSIS, 09/30/16) Duloxetine (Verified Adverse Reaction, Mild, PSYCHOSIS, 09/30/16) Gabapentin (Verified Adverse Reaction, Mild, PSYCHOSIS, 09/30/16) Morphine (Verified Adverse Reaction, Mild, NAUSEA, 09/30/16) NSAIDs (Verified Adverse Reaction, Unknown, s/p bariatric surgery, 09/30/16 ) [place] [facility] [place] Physical Exam Vital Signs Date Time Temp Pulse Resp B/P Pulse Ox O2 Delivery O2 Flow Rate FiO2 09/30/16 16:48 72 20 163/101 95 09/30/16 15:53 78 20 168/113 95 Room Air 09/30/16 14:23 102 20 209/141 112 184/148 09/30/16 13:46 36.8 123 18 170/111 95 Room Air Physical Exam GENERAL: Patient is awake, alert, and in no acute distress. Patient is resting comfortably and showing no signs of anxiety EYES: The conjunctivae are clear. The pupils are round and reactive. EARS, NOSE, MOUTH AND THROAT: The nose is without any evidence of any deformity. Mucous membranes are moist tongue is midline NECK: The neck is nontender and supple. RESPIRATORY: Normal respiratory effort is noted there is no evidence of wheezing rhonchi or rales CARDIOVASCULAR: Regular rate and rhythm noted there no murmurs rubs or gallops normal S1 normal S2 GASTROINTESTINAL: The abdomen is soft. Bowel sounds are present in all quadrants. Abdomen is nontender RECTAL: Brown stool, heme-negative. MUSCULOSKELETAL/EXTREMITIES: There is no evidence of gross deformity full range of motion is noted in the hips and shoulders SKIN: Trace pedal edema bilaterally. NEUROLOGIC: Patient is awake alert and oriented x3. Medical Decision & Procedures ER Provider Diagnostic Interpretation: Radiology results as stated below per my review and radiologist interpretation: CT OF THE HEAD WITHOUT CONTRAST CLINICAL HISTORY: Weakness. Dizzy. Nausea. COMPARISON STUDY: Head CT and MRI of the brain September 06, 2016. CT DOSE: 614.27 mGy.cm TECHNIQUE: Helical axial images of the head were obtained without IV contrast. Automated exposure control was utilized for the study. FINDINGS: No acute intracranial hemorrhage, midline shift or mass effect is present. Ventricular system is stable. Basilar cisterns are patent. There are no extra-axial collections. There are no findings to suggest acute dural sinus thrombosis or acute territorial infarct. There are post surgical findings within the sinuses. Mastoid air cells are clear. The posterior arch of C1 is incomplete. There are no significant calvarial abnormalities. IMPRESSION: No acute intracranial findings. Electronically signed by: Everardo De La Torre M.D. 09/30/2016 2:37 PM Dictated Date/Time: 09/30/2016 2:34 PM PA CHEST RADIOGRAPH AND UPRIGHT AND SUPINE AP RADIOGRAPHS OF THE ABDOMEN CLINICAL HISTORY: Abdominal pain, nausea and diarrhea. COMPARISON STUDY: Abdominal series January 21, 2016 and chest radiograph August 08 2016. FINDINGS: Lung volumes are diminished. Mild cardiomegaly is unchanged. Lower lung interstitial thickening is noted. There is no lobar consolidation. There is no pneumothorax or pleural effusion. There are cholecystectomy clips and hardware from spine surgery. The patient is status post gastric bypass. There is no evidence for a bowel obstruction. There is no free air. IMPRESSION: No free air or evidence of bowel obstruction. Electronically signed by: Everardo De La Torre M.D. 09/30/2016 2:56 PM Dictated Date/Time: 09/30/2016 2:53 PM Laboratory Results 09/30/16 14:10 Red Blood Count 4.24, Mean Corpuscular Volume 92.9, Mean Corpuscular Hemoglobin 33.0, Mean Corpuscular Hemoglobin Concent 35.5, Mean Platelet Volume 8.9, Neutrophils (%) (Auto) 63.4, Lymphocytes (%) (Auto) 26.7, Monocytes (%) (Auto) 8.0, Eosinophils (%) (Auto) 1.3, Basophils (%) (Auto) 0.2, Neutrophils # (Auto) 2.84, Lymphocytes # (Auto) 1.20, Monocytes # (Auto) 0.36, Eosinophils # (Auto) 0.06, Basophils # (Auto) 0.01 09/30/16 14:10 Test 09/30/16 14:10 09/30/16 15:09 White Blood Count 4.49 K/uL (4.8-10.8) Red Blood Count 4.24 M/uL (4.2-5.4) Hemoglobin 14.0 g/dL (12.0-16.0) Hematocrit 39.4 % (37-47) Mean Corpuscular Volume 92.9 fL (80-100) Mean Corpuscular Hemoglobin 33.0 pg (25-34) Mean Corpuscular Hemoglobin Concent 35.5 g/dl (32-36) Platelet Count 236 K/uL (130-400) Mean Platelet Volume 8.9 fL (7.4-10.4) Neutrophils (%) (Auto) 63.4 % Lymphocytes (%) (Auto) 26.7 % Monocytes (%) (Auto) 8.0 % Eosinophils (%) (Auto) 1.3 % Basophils (%) (Auto) 0.2 % Neutrophils # (Auto) 2.84 K/uL (1.4-6.5) Lymphocytes # (Auto) 1.20 K/uL (1.2-3.4) Monocytes # (Auto) 0.36 K/uL (0.11-0.59) Eosinophils # (Auto) 0.06 K/uL (0-0.5) Basophils # (Auto) 0.01 K/uL (0-0.2) RDW Standard Deviation 46.9 fL (36.4-46.3) RDW Coefficient of Variation 13.8 % (11.5-14.5) Immature Granulocyte % (Auto) 0.4 % Immature Granulocyte # (Auto) 0.02 K/uL (0.00-0.02) Prothrombin Time 10.2 SECONDS (9.0-12.0) Prothromb Time International Ratio 1.0 (0.9-1.1) Activated Partial Thromboplast Time 23.3 SECONDS (21.0-31.0) Partial Thromboplastin Ratio 0.9 Anion Gap 9.0 mmol/L (3-11) Est Creatinine Clear Calc Drug Dose 72.7 ml/min Estimated GFR () 82.2 Estimated GFR (Non- 70.9 BUN/Creatinine Ratio 11.6 (10-20) Calcium Level 8.7 mg/dl (8.5-10.1) Total Bilirubin 0.3 mg/dl (0.2-1) Direct Bilirubin 0.1 mg/dl (0-0.2) Aspartate Amino Transf (AST/SGOT) 12 U/L (15-37) Alanine Aminotransferase (ALT/SGPT) 21 U/L (12-78) Alkaline Phosphatase 106 U/L (45-117) Total Creatine Kinase 35 U/L (26-192) Creatine Kinase MB 0.6 ng/ml (0.5-3.6) Creatine Kinase MB Ratio 1.7 (0-3.0) Troponin I < 0.015 ng/ml (0-0.045) Total Protein 6.5 gm/dl (6.4-8.2) Albumin 3.4 gm/dl (3.4-5.0) Amylase Level 74 U/L (25-115) Lipase 61 U/L (73-393) Urine Color YELLOW Urine Appearance CLEAR (CLEAR) Urine pH 5.5 (4.5-7.5) Urine Specific [place] 1.006 (1.000-1.030) Urine Protein NEG (NEG) Urine Glucose (UA) NEG (NEG) Urine Ketones NEG (NEG) Urine Occult Blood NEG (NEG) Urine Nitrite NEG (NEG) Urine Bilirubin NEG (NEG) Urine Urobilinogen NEG (NEG) Urine Leukocyte Esterase NEG (NEG) Laboratory results per my review. Medications Administered Medications (Trade) Dose Ordered Sig/Valente Route Start Time Stop Time Status Last Admin Dose Admin Sodium Chloride (Nss 1000ml) 1,000 ml @ 999 mls/hr Q1H1M STAT IV 09/30/16 13:56 09/30/16 14:56 DC 09/30/16 14:27 999 MLS/HR Hydromorphone HCl 1 mg 1 mg NOW STAT IV 09/30/16 15:26 09/30/16 15:27 DC 09/30/16 15:52 1 MG Promethazine HCl/ Sodium Chloride (Phenergan Inj/ Nss 50ml) 50.5 ml @ 204 mls/hr NOW STAT IV 09/30/16 15:26 09/30/16 15:40 DC 09/30/16 15:52 204 MLS/HR ECG Indication: nausea Rate (beats per minute): 104 Rhythm: sinus tachycardia Findings: no ectopy, other (no acute ST segment abnormalities) Comparison ECG Date: increased rate otherwise no significant change from September 06 2016 ED Course 1352: The patient was evaluated in room A10. A complete history and physical examination were performed. 1356: Ordered NSS 1000 ml @ 999 mls/hr IV. 1358: Ordered Zofran Inj 4 mg IV. 1524: I reevaluated the patient and did a rectal exam. She has brown stool, heme -negative. 1526: Ordered Promethazine HCl 12.5/Sodium Chloride 50.5 ml @ 204 mls/hr IV, Dilaudid Inj 1 mg IV. 1615: Upon reevaluation, the patient is resting comfortably. I discussed the results and treatment plan with her. She verbalized agreement of the treatment plan. She was discharged home. Medical Decision Nursing notes reviewed. Differential diagnosis: Etiologies such as metabolic, infection, hypo/hyperglycemia, electrolyte abnormalities, cardiac sources, intracerebral event, toxicologic, neurologic, as well as others were entertained. The patient is a 66-year-old female who presented to the emergency department with multiple complaints. The patient was complaining of chronic left shoulder pain but states that this chronic shoulder pain give us her significant nausea as well. She has good range of motion of the shoulder and is scheduled for surgical intervention in the near future. She also complains of dizziness as well as vomiting. The patient's abdominal exam was not consistent with an acute surgical abdomen. I discussed the patient's laboratory radiographic studies with her. She was treated with IV pain medicine and IV fluids and IV antiemetics. On subsequent reevaluation she was feeling much better. I reviewed the patient's outpatient medications makes me very comfortable writing a prescription for any outpatient pain medication further. I discussed her case with the [facility] employment evaluator/case manager and we were able to get the patient a follow-up appointment with her primary care physician. She was encouraged to rest and continue all medications as prescribed. She was also encouraged to keep her appointment with her primary care physician and return to the emergency department immediately if symptoms change worsen or the need arises. Impression Primary Impression: Dizziness Additional Impressions: Chronic left shoulder pain Nausea & vomiting Scribe Attestation The scribe's documentation has been prepared under my direction and personally reviewed by me in its entirety. I confirm that the note above accurately reflects all work, treatment, procedures, and medical decision making performed by me. Departure Information Dispostion Home / Self-Care Referrals No Doctor, Assigned (PCP) Conrad Mckeon DEmilianoO. Forms HOME CARE DOCUMENTATION FORM, IMPORTANT VISIT INFORMATION, WORK / SCHOOL INSTRUCTIONS Patient Instructions ED Dizziness [facility], ED Nausea Vomiting, My [facility] Additional Instructions Follow-up with your family doctor as scheduled. Rest and avoid any strenuous or Thursday. Continue all medications as prescribed. Problem Qualifiers Additional Impressions: Nausea & vomiting Vomiting type: unspecified Vomiting Intractability: non-intractable Qualified Codes: R11.2 - Nausea with vomiting, unspecified
[2016-09-30 14:24] LABS: BASO % 0.2 %; BASO ABS # 0.01 K/uL (0-0.2); COMPLETE YES; EOS % 1.3 %; HEMATOCRIT 39.4 % (37-47); IG% 0.4 %; LYMPH % 26.7 %; MEAN CELL VOLUME 92.9 fL (80-100); MEAN CORPUSCULAR HGB CONC 35.5 g/dl (32-36); MEAN PLATELET VOLUME 8.9 fL (7.4-10.4); NEUT % 63.4 %; PLATELET COUNT 236 K/uL (130-400); RED BLOOD COUNT 4.24 M/uL (4.2-5.4); WHITE BLOOD COUNT 4.49 K/uL (4.8-10.8)
[2016-09-30 14:34] LABS: PARTIAL THROMBOPLASTIN RATIO 0.9; PROTHROMBIN TIME (PATIENT) 10.2 SECONDS (9.0-12.0)
--- NOTE | 2016-09-30 14:39 | DIAGNOSTIC IMAGING REPORT ---
CT OF THE HEAD WITHOUT CONTRAST CLINICAL HISTORY: Weakness. Dizzy. Nausea. COMPARISON STUDY: Head CT and MRI of the brain September 06, 2016. CT DOSE: 614.27 mGy.cm TECHNIQUE: Helical axial images of the head were obtained without IV contrast. Automated exposure control was utilized for the study. FINDINGS: No acute intracranial hemorrhage, midline shift or mass effect is present. Ventricular system is stable. Basilar cisterns are patent. There are no extra-axial collections. There are no findings to suggest acute dural sinus thrombosis or acute territorial infarct. There are post surgical findings within the sinuses. Mastoid air cells are clear. The posterior arch of C1 is incomplete. There are no significant calvarial abnormalities. IMPRESSION: No acute intracranial findings. Electronically signed by: Everardo De La Torre M.D. 09/30/2016 2:37 PM Dictated Date/Time: 09/30/2016 2:34 PM
[2016-09-30 14:42] LABS: ALT/SGPT 21 U/L (12-78); AMYLASE 74 U/L (25-115); AST/SGOT 12 U/L (15-37); BLOOD UREA NITROGEN 10 mg/dl (7-18); BUN/CREATININE RATIO 11.6 (10-20); CALCIUM 8.7 mg/dl (8.5-10.1); CARBON DIOXIDE 25 mmol/L (21-32); CHLORIDE 107 mmol/L (98-107); CREATININE 0.85 mg/dl (0.60-1.20); GLUCOSE 177 mg/dl (70-99); POTASSIUM 3.7 mmol/L (3.5-5.1); SODIUM 141 mmol/L (136-145)
[2016-09-30 14:48] LABS: ALKALINE PHOSPHATASE 106 U/L (45-117); CKMB/CK RATIO 1.7 (0-3.0)
--- NOTE | 2016-09-30 14:58 | DIAGNOSTIC IMAGING REPORT ---
PA CHEST RADIOGRAPH AND UPRIGHT AND SUPINE AP RADIOGRAPHS OF THE ABDOMEN CLINICAL HISTORY: Abdominal pain, nausea and diarrhea. COMPARISON STUDY: Abdominal series January 21, 2016 and chest radiograph August 08 2016. FINDINGS: Lung volumes are diminished. Mild cardiomegaly is unchanged. Lower lung interstitial thickening is noted. There is no lobar consolidation. There is no pneumothorax or pleural effusion. There are cholecystectomy clips and hardware from spine surgery. The patient is status post gastric bypass. There is no evidence for a bowel obstruction. There is no free air. IMPRESSION: No free air or evidence of bowel obstruction. Electronically signed by: Everardo De La Torre M.D. 09/30/2016 2:56 PM Dictated Date/Time: 09/30/2016 2:53 PM
[2016-09-30 15:21] LABS: URINE APPEARANCE CLEAR (CLEAR); URINE BILIRUBIN NEG (NEG); URINE COLOR YELLOW; URINE NITRITE NEG (NEG); URINE PH 5.5 (4.5-7.5); URINE SPECIFIC GRAVITY 1.006 (1.000-1.030); UROBILINOGEN NEG (NEG)
[2016-09-30] MEDS ORDERED: HYDROmorphone INJ 1 MG/ML SYR IV STA (15:26)
[2016-09-30] MEDS ORDERED: PROMETHAZINE HCL INJ 12.5 MG in SODIUM CHLORIDE 0.9% 50ML 50 ML IV STA (15:26)
[2016-09-30 15:34] LABS: MANUAL MICROSCOPIC REQUIRED? NO; REVIEW REQ? NO
[2016-09-30] MEDS ORDERED: ONDA4TAB10 SL (16:14)
[2016-09-30 16:48] VITALS: BP 163/101; PULSE 72; O2SAT 95
[2016-12-27] MEDS ORDERED: AMB5 PO (10:19)
[2016-12-27] MEDS ORDERED: SNQ50 PO (10:19)
[2016-12-27] MEDS ORDERED: ULT50X PO (10:19)
[2016-12-27] MEDS ORDERED: CZR50 PO (10:19)
[2017-01-20] MEDS ORDERED: TRAM-10 PO (15:19)
[2017-01-20] MEDS ORDERED: ATV1 PO (15:19)
[2017-01-20] MEDS ORDERED: CPR500 PO (15:19)
[2017-01-20] MEDS ORDERED: LACT10CA3 PO (15:19)
[2017-01-31] MEDS ORDERED: PEDI1CHW95 PO (10:51)
[2017-01-31] MEDS ORDERED: LOSA100T65 PO (15:52)
[2017-01-31] MEDS ORDERED: ONDA-63 PO (15:52)
[2017-01-31] MEDS ORDERED: VNTHFA/IN INH (15:52)
[2017-01-31] MEDS ORDERED: PLV75 PO (15:52)
[2017-01-31] MEDS ORDERED: SNQ/50 PO (15:52)
[2017-01-31] MEDS ORDERED: PANT40TA2 PO (15:52)
[2017-01-31] MEDS ORDERED: TPRSR/25 PO (15:52)
[2017-01-31] MEDS ORDERED: RGL/5 PO (15:52)
[2017-01-31] MEDS ORDERED: CYNI1000 IM (15:56)
[2017-01-31] MEDS ORDERED: BIOT10CA PO (17:48)
[2017-01-31] MEDS ORDERED: CYCL0.052 OPB (17:48)
[2017-01-31] MEDS ORDERED: FLUN0.02 NAE (17:48)
[2017-02-02] MEDS ORDERED: KFL250 PO (13:27)
== END 2016-09-30 16:49 | disposition home or self-care (01) ==
LOC: C.EDB 13:42 → C.EDA 16:49
DX: R42 Dizziness and giddiness (principal); M25.512 Pain in left shoulder; R11.2 Nausea with vomiting, unspecified; J45.909 Unspecified asthma, uncomplicated; E11.9 Type 2 diabetes mellitus without complications; E78.5 Hyperlipidemia, unspecified; I10 Essential (primary) hypertension; E66.01 Morbid (severe) obesity due to excess calories; Z83.3 Family history of diabetes mellitus; Z82.49 Family history of ischemic heart disease and other diseases of the circulatory system

== ENCOUNTER 2016-10-02 01:02 | Emergency (ER) | payer MEDICARE ==
[~2016-10-02] VITALS: Ht 160 cm; Wt 91.0 kg
[2016-10-02 01:06] VITALS: TEMP 36.6; O2SAT 95; Ht 160 cm; Wt 91.0 kg
[2016-10-02] MEDS ORDERED: SODIUM CHLORIDE 0.9% 250ML 250 ML IV STA (01:37)
[2016-10-02] MEDS ORDERED: SODIUM CHLORIDE 0.9% 1000ML 1,000 ML IV STA (01:37)
--- NOTE | 2016-10-02 01:52 | EMERGENCY ROOM VISIT NOTE ---
History Report prepared by Tano: Mando Sun Under the Supervision of: Dr. Maddie Rivas M.D. First contact with patient: 01:16 Chief Complaint: DIZZY Stated Complaint: DIZZY History of Present Illness The patient is a 66 year old female who presents to the Emergency Room with complaints of persistent dizziness starting today. She reports weakness. She describes it to be an issue with her balance but denies any room spinning. As per , the patient has been having shakiness and muscle spasms. The patient was evaluated in the Emergency Room last week for similar symptoms. Today, she also saw "cotton balls" in the air. She also complains of burning with urination and itching in the vaginal area. She denies any vaginal discharge. She reports an intermittent cough for the past few days. She also feels hot and cold in the evenings. She also reports some diarrhea. She had dark stool today. She denies any blood in stool. She drank some Pepto Bismol for nausea. She had one vomiting episode yesterday. The patient also reports a loss of appetite and a reduced fluid intake. She denies chest pain, shortness of breath, or any other complaints. The patient did not take any Percocet today. Source of History: patient Onset: today Position: other (global) Quality: other (dizziness) Timing: other (persistent) Associated Symptoms: + cough, + diarrhea, + nausea, + vomiting, No SOB, No chest pain Review of Systems See HPI for pertinent positives & negatives. A total of 10 systems reviewed and were otherwise negative. Past Medical & Surgical Medical Problems: (1) Anxiety (2) Asthma (3) C. difficile diarrhea (4) DM2 (diabetes mellitus, type 2) (5) GERD (gastroesophageal reflux disease) (6) Hyperlipidemia (7) Hypertension (8) Morbid obesity (9) Sacral back pain Surgical Problems: (1) H/O gastric bypass (2) H/O hernia repair (3) H/O spinal fusion (4) History of carpal tunnel surgery (5) Previous section (6) S/P appendectomy (7) S/P cholecystectomy (8) S/p left shoulder surgery (9) S/P parathyroidectomy (10) S/P tonsillectomy and adenoidectomy (11) Total knee replacement status Family History Diabetes mellitus Gallbladder disease Heart disease Hypertension Social History Smoking Status: Never Smoker Alcohol Use: none Drug Use: none Marital Status: Housing Status: lives with significant other Current/Historical Medications Scheduled Biotin (Cvs Biotin), 10 MG PO QAM Cholecalciferol (D 1000), 1 CAP PO TID Clopidogrel (Plavix), 75 MG PO QAM Cyclosporine (Ophth) (Restasis), 1 DROPS OP BID Doxepin (Sinequan), 75 MG PO QAM Doxepin (Sinequan), 150 MG PO HS Ergocalciferol (Vitamin D), 50,000 INTER.UNIT PO 3XWK Estrogens, Conjugated (Premarin), 0.5 GM TOP 3XWK Losartan Potassium (Cozaar), 100 MG PO QAM Metoclopramide (Reglan), 10 MG PO AC Metoprolol Succ (Toprol Xl) (Toprol-Xl), 25 MG PO QAM Pantoprazole (Protonix), 40 MG PO QAM Pediatric Multiple Vitamin W/ (Multivitamin Gummies Chil), 1 TAB PO QAM Scheduled PRN Albuterol (Ventolin Hfa), 2 PUFFS INH Q4 PRN for SOB/Wheezing Carisoprodol (Soma), 350 MG PO BID PRN for Pain Flunisolide (Nasal) (Flunisolide), 2 SPRY SALOMÓN DAILY PRN for allergies Lorazepam (Lorazepam), 1 MG PO QAM PRN for PRN Oxycodone/Acetaminophen 5MG/325MG (Percocet 5MG/325MG), 1 TABLET PO Q4H PRN for Pain Promethazine Hcl (Phenergan), 25 MG PO Q6H PRN for Nausea Promethazine Hcl (Phenergan Suppository), 25 MG LA Q4H PRN for Nausea Temazepam (Restoril), 15 MG PO HS PRN for PRN Allergies Coded Allergies: Atorvastatin (Verified Allergy, Unknown, myalgias per PCP note , 10/02/16) Rosuvastatin (Unverified Allergy, Unknown, MUSCLE ACHES, 10/02/16) CI Pigment Blue 63 (Verified Adverse Reaction, Mild, PSYCHOSIS, 10/02/16) Duloxetine (Verified Adverse Reaction, Mild, PSYCHOSIS, 10/02/16) Gabapentin (Verified Adverse Reaction, Mild, PSYCHOSIS, 10/02/16) Morphine (Verified Adverse Reaction, Mild, NAUSEA, 10/02/16) NSAIDs (Verified Adverse Reaction, Unknown, s/p bariatric surgery, 10/02/16 ) per [facility] Physical Exam Vital Signs Date Time Temp Pulse Resp B/P Pulse Ox O2 Delivery O2 Flow Rate FiO2 10/02/16 03:12 84 16 164/93 10/02/16 02:19 89 16 156/99 97 163/110 100 149/98 10/02/16 01:45 95 10/02/16 01:06 36.6 118 20 124/83 95 Room Air Physical Exam Vital signs reviewed. General: Chronically ill-appearing, in no significant distress. HEENT: No scleral icterus, no nystagmus, PERRLA, neck supple. Atraumatic. Dry mucous membranes. Cardiovascular: Regular rate and rhythm, no extra sounds. Pulmonary: Clear to auscultation bilaterally, normal work of breathing. Abdomen: Obese, soft, nontender, nondistended, positive bowel sounds. Musculoskeletal: Atraumatic, no peripheral edema. Neurologic: Patient awake alert and oriented x 3, full strength in all 4 extremities. Cranial nerves 2 through 12 grossly intact. Skin: Warm, dry, no rash Medical Decision & Procedures ER Provider Diagnostic Interpretation: X-ray results as stated below per interpretation by me: CHEST X-RAY Poor inspiratory effort, no evidence of focal lung consolidation or failure, left shoulder hemiarthroplasty is appreciated. CT results as stated below per my review and radiologist interpretation: CT HEAD No acute intracranial hemorrhage. No CT evidence of acute infarct. No mass effect or midline shift or hydrocephalus. Age-related changes. Radiologist: Umesh Ash MD Laboratory Results 10/02/16 02:04 Red Blood Count 3.99, Mean Corpuscular Volume 91.2, Mean Corpuscular Hemoglobin 32.1, Mean Corpuscular Hemoglobin Concent 35.2, Mean Platelet Volume 8.6, Neutrophils (%) (Auto) 67.4, Lymphocytes (%) (Auto) 19.7, Monocytes (%) (Auto) 10.9, Eosinophils (%) (Auto) 1.6, Basophils (%) (Auto) 0.2, Neutrophils # (Auto ) 3.35, Lymphocytes # (Auto) 0.98, Monocytes # (Auto) 0.54, Eosinophils # (Auto ) 0.08, Basophils # (Auto) 0.01 10/02/16 02:04 Test 10/02/16 01:25 10/02/16 02:04 10/02/16 02:10 Urine Color YELLOW Urine Appearance CLEAR (CLEAR) Urine pH 5.5 (4.5-7.5) Urine Specific [place] 1.014 (1.000-1.030) Urine Protein NEG (NEG) Urine Glucose (UA) NEG (NEG) Urine Ketones NEG (NEG) Urine Occult Blood NEG (NEG) Urine Nitrite NEG (NEG) Urine Bilirubin NEG (NEG) Urine Urobilinogen NEG (NEG) Urine Leukocyte Esterase TRACE (NEG) Urine WBC (Auto) 1-5 /hpf (0-5) Urine RBC (Auto) 0-4 /hpf (0-4) Urine Hyaline Casts (Auto) 5-10 /lpf (0-5) Urine Epithelial Cells (Auto) >30 /lpf (0-5) Urine Bacteria (Auto) NEG (NEG) Urine Opiates Screen POS (NEG) Urine Methadone, Qualitative NEG (NEG) Urine Barbiturates NEG (NEG) Urine Phencyclidine (PCP) Level NEG (NEG) Ur Amphetamine/Methamphetamine NEG (NEG) MDMA (Ecstasy) Screen NEG (NEG) Urine Benzodiazepines Screen NEG (NEG) Urine Cocaine Metabolite NEG (NEG) Urine Marijuana (THC) NEG (NEG) White Blood Count 4.97 K/uL (4.8-10.8) Red Blood Count 3.99 M/uL (4.2-5.4) Hemoglobin 12.8 g/dL (12.0-16.0) Hematocrit 36.4 % (37-47) Mean Corpuscular Volume 91.2 fL (80-100) Mean Corpuscular Hemoglobin 32.1 pg (25-34) Mean Corpuscular Hemoglobin Concent 35.2 g/dl (32-36) Platelet Count 224 K/uL (130-400) Mean Platelet Volume 8.6 fL (7.4-10.4) Neutrophils (%) (Auto) 67.4 % Lymphocytes (%) (Auto) 19.7 % Monocytes (%) (Auto) 10.9 % Eosinophils (%) (Auto) 1.6 % Basophils (%) (Auto) 0.2 % Neutrophils # (Auto) 3.35 K/uL (1.4-6.5) Lymphocytes # (Auto) 0.98 K/uL (1.2-3.4) Monocytes # (Auto) 0.54 K/uL (0.11-0.59) Eosinophils # (Auto) 0.08 K/uL (0-0.5) Basophils # (Auto) 0.01 K/uL (0-0.2) RDW Standard Deviation 45.6 fL (36.4-46.3) RDW Coefficient of Variation 13.7 % (11.5-14.5) Immature Granulocyte % (Auto) 0.2 % Immature Granulocyte # (Auto) 0.01 K/uL (0.00-0.02) Prothrombin Time 10.3 SECONDS (9.0-12.0) Prothromb Time International Ratio 1.0 (0.9-1.1) Activated Partial Thromboplast Time 23.4 SECONDS (21.0-31.0) Partial Thromboplastin Ratio 0.9 Anion Gap 9.0 mmol/L (3-11) Est Creatinine Clear Calc Drug Dose 64.2 ml/min Estimated GFR () 75.7 Estimated GFR (Non- 65.3 BUN/Creatinine Ratio 13.1 (10-20) Calcium Level 8.4 mg/dl (8.5-10.1) Magnesium Level 1.8 mg/dl (1.8-2.4) Total Bilirubin 0.2 mg/dl (0.2-1) Direct Bilirubin 0.1 mg/dl (0-0.2) Aspartate Amino Transf (AST/SGOT) 11 U/L (15-37) Alanine Aminotransferase (ALT/SGPT) 18 U/L (12-78) Alkaline Phosphatase 103 U/L (45-117) Total Creatine Kinase 38 U/L (26-192) Creatine Kinase MB 0.5 ng/ml (0.5-3.6) Creatine Kinase MB Ratio 1.3 (0-3.0) Total Protein 6.2 gm/dl (6.4-8.2) Albumin 3.5 gm/dl (3.4-5.0) Thyroid Stimulating Hormone (TSH) 0.498 uIu/ml (0.300-4.500) Salicylates Level < 1.7 mg/dl (2.8-20) Acetaminophen Level < 2 ug/ml (10-30) Ethyl Alcohol mg/dL < 3.0 mg/dl (0-3) Bedside Troponin I 0.000 ng/ml (0-0.045) Laboratory results per my review. Medications Administered Medications (Trade) Dose Ordered Sig/Valente Route Start Time Stop Time Status Last Admin Dose Admin Sodium Chloride (Nss 250ml) 250 ml @ 999 mls/hr Q16M STAT IV 10/02/16 01:37 10/02/16 01:52 DC 10/02/16 02:26 999 MLS/HR Meclizine HCl (Antivert Tab) 25 mg NOW STAT PO 10/02/16 02:30 10/02/16 02:32 DC 10/02/16 02:41 25 MG Oxycodone/ Acetaminophen (Percocet 5-325mg Tab) 1 tab NOW STAT PO 10/02/16 02:30 10/02/16 02:32 DC 10/02/16 02:42 1 TAB ECG Indication: other (Dizziness) Rate (beats per minute): 100 Rhythm: normal sinus Findings: no acute ischemic change, no ectopy, other (previous inferior infarct ; 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 The patient was evaluated in room A11B. A complete history and physical examination was performed. 0137: Sodium Chloride 1000 ml @ 125 mls/hr IV, Sodium Chloride 250 ml @ 999 mls/ hr IV 0230: Oxycodone/Acetaminophen 1 tab PO, Meclizine HCl 25 mg PO 0232: Vancomycin HCl 2,275 mg/Sodium Chloride 545.5 ml @ 200 mls/hr IV 0310: Upon reevaluation, the patient appeared to have improvement of her symptoms. I discussed findings with her. The patient will follow up with her PCP. The patient is on 6 different sedating medications. I instructed her to minimize the use of sedating medications, reduce the dosage, and stagger them. She verbalized agreement of the treatment plan. She was discharged home. Medical Decision Differential diagnosis: Etiologies such as benign positional vertigo, dehydration, hypovolemia, anemia, tumor, infection, hypoglycemia, electrolyte abnormalities, cardiac sources, intracerebral event, toxicologic, neurologic, as well as others were entertained. This patient was evaluated and appeared to be in no significant distress. Physical examination reveals a somewhat sedate female in no distress. She is able to converse and follow commands appropriately. Patient is complaining of a dizziness, asking for Ativan and Phenergan. Patient was given meclizine and a Peever tablet. Patient was hydrated with normal saline solution. X-ray of the lungs reveals no focal lung consolidation. CT scan of the head reveals age- related changes, no focal infarct. There is no acute bleeding. I suspect the patient's hypotension and grogginess are related to her altered mentation from polypharmacy. She was strongly encouraged to minimize the use of her medications and stagger them as long as possible. She will follow-up with her physician this week for reevaluation and return to the ER for worsening of symptoms or any medical concerns. Impression Primary Impression: Polypharmacy Additional Impression: Dizziness Scribe Attestation The scribe's documentation has been prepared under my direction and personally reviewed by me in its entirety. I confirm that the note above accurately reflects all work, treatment, procedures, and medical decision making performed by me. Departure Information Dispostion Home / Self-Care Referrals Conrad Mckeon D.O. (PCP) Forms HOME CARE DOCUMENTATION FORM, IMPORTANT VISIT INFORMATION Patient Instructions My [facility] Additional Instructions Diagnosis: Polypharmacy, dizzy Drink plenty of clear fluids. Minimize your sedating medications, use less frequency and decrease the dosing. Stagger these medications during the day. Follow-up with your physician this week for reevaluation and review your medication list. Return to the ER for worsening of symptoms or any medical concerns. Problem Qualifiers
[2016-10-02 01:53] LABS: URINE APPEARANCE CLEAR (CLEAR); URINE BILIRUBIN NEG (NEG); URINE COLOR YELLOW; URINE EPITHELIAL CELL AUTO >30 /lpf (0-5); URINE NITRITE NEG (NEG); URINE PH 5.5 (4.5-7.5); URINE SPECIFIC GRAVITY 1.014 (1.000-1.030); UROBILINOGEN NEG (NEG); ZZUR CULT IF INDIC CLEAN CATCH NO
[2016-10-02 01:55] LABS: MANUAL MICROSCOPIC REQUIRED? NO; REVIEW REQ? NO
[2016-10-02 02:08] LABS: BENZODIAZEPINE, URINE NEG (NEG); COCAINE,URINE NEG (NEG); PHENCYCLIDINE, URINE NEG (NEG)
[2016-10-02 02:19] LABS: BASO % 0.2 %; BASO ABS # 0.01 K/uL (0-0.2); COMPLETE YES; EOS % 1.6 %; HEMATOCRIT 36.4 % (37-47); IG% 0.2 %; LYMPH % 19.7 %; LYMPH ABS # 0.98 K/uL (1.2-3.4); MEAN CELL VOLUME 91.2 fL (80-100); MEAN CORPUSCULAR HEMOGLOBIN 32.1 pg (25-34); MEAN CORPUSCULAR HGB CONC 35.2 g/dl (32-36); MEAN PLATELET VOLUME 8.6 fL (7.4-10.4); MONO % 10.9 %; NEUT % 67.4 %; PLATELET COUNT 224 K/uL (130-400); RED BLOOD COUNT 3.99 M/uL (4.2-5.4); WHITE BLOOD COUNT 4.97 K/uL (4.8-10.8)
[2016-10-02 02:27] LABS: PARTIAL THROMBOPLASTIN RATIO 0.9; PROTHROMBIN TIME (PATIENT) 10.3 SECONDS (9.0-12.0)
[2016-10-02] MEDS ORDERED: OXYCODONE/ACETAMINOPHEN 5-325 TAB PO STA (02:30)
[2016-10-02] MEDS ORDERED: MECLIZINE HCL 25 MG TAB PO STA (02:30)
[2016-10-02] MEDS ORDERED: VANCOMYCIN INJ 2,275 MG in SODIUM CHLORIDE 0.9% 500ML 500 ML IV STA (02:32)
[2016-10-02] MEDS: ONDANSETRON INJ 2 MG/ML 2 ML VIAL IV STA ×2 (02:42→03:12)
[2016-10-02 02:44] LABS: BUN/CREATININE RATIO 13.1 (10-20); CALCIUM 8.4 mg/dl (8.5-10.1); CREATININE 0.91 mg/dl (0.60-1.20); MAGNESIUM 1.8 mg/dl (1.8-2.4); POTASSIUM 3.5 mmol/L (3.5-5.1)
[2016-10-02 02:52] LABS: ACETAMINOPHEN < 2 ug/ml (10-30)
[2016-10-02 02:55] LABS: CKMB/CK RATIO 1.3 (0-3.0); THYROID STIMULATING HORMONE 0.498 uIu/ml (0.300-4.500)
[2016-10-02 03:12] VITALS: BP 164/93; PULSE 84
--- NOTE | 2016-10-02 07:13 | DIAGNOSTIC IMAGING REPORT ---
CT SCAN OF THE BRAIN WITHOUT IV CONTRAST CLINICAL HISTORY: Weakness. Dizziness. Change in mental status. COMPARISON STUDY: CT of the brain dated 09/30/2016. TECHNIQUE: Unenhanced axial CT scan of the brain is performed from the vertex to the skull base. CT DOSE: 614.27 mGy.cm FINDINGS: Brain parenchyma: There are age-related involutional changes noting minimal subcortical and periventricular microangiopathic change. There is no hemorrhage, mass effect, or evidence of acute territorial ischemia by CT criteria. Pederson-white matter is preserved. No extra-axial fluid collection is seen. Ventricles, sulci, cisterns: Prominent secondary to involutional change. Intracranial vasculature: There is atherosclerotic calcification of the cavernous carotid and vertebral arteries. Calvarium: Unremarkable. Sinuses and mastoids: There is evidence of previous paranasal sinus surgery. The visualized paranasal sinuses are clear. The mastoid air cells are well pneumatized. Orbits: The bony orbits are grossly intact. There are bilateral ocular lens implants. IMPRESSION: There is no hemorrhage, mass effect, or evidence of acute territorial ischemia by CT criteria. Electronically signed by: Jarod Singleton M.D. 10/02/2016 7:10 AM Dictated Date/Time: 10/02/2016 7:09 AM
--- NOTE | 2016-10-02 08:51 | DIAGNOSTIC IMAGING REPORT ---
SINGLE VIEW CHEST CLINICAL HISTORY: Change in mental status. FINDINGS: An AP, portable, upright chest radiograph is compared to study dated 09/30/2016. The examination is degraded by portable technique, large body habitus, and patient rotation. The heart is enlarged and there is atherosclerotic calcification of the thoracic aorta. The pulmonary vasculature is noncongested. Chronic interstitial thickening is similar to previous. No airspace consolidation or large pleural effusion is identified. No pneumothorax is seen. The skeletal structures are osteopenic. Degenerative changes noted in the thoracic spine. Fusion hardware is partially imaged in the upper lumbar spine. A left shoulder arthroplasty is in place. IMPRESSION: Cardiomegaly with no acute cardiopulmonary abnormality. Electronically signed by: Jarod Singleton M.D. 10/02/2016 8:50 AM Dictated Date/Time: 10/02/2016 8:49 AM
[2016-10-05 11:17] LABS: COD UR NEGATIVE NG/ML (CUTOFF=50); HYDROCOD UR NEGATIVE NG/ML (CUTOFF=50); HYDROMOR UR NEGATIVE NG/ML (CUTOFF=50); MORPHINE UR NEGATIVE NG/ML (CUTOFF=50); NORHYDROCODONE CONF UR NEGATIVE NG/ML (CUTOFF=50); OXYMORPH UR NEGATIVE NG/ML (CUTOFF=50)
[2016-12-27] MEDS ORDERED: ULT50X PO (10:19)
[2016-12-27] MEDS ORDERED: AMB5 PO (10:19)
[2016-12-27] MEDS ORDERED: CZR50 PO (10:19)
[2016-12-27] MEDS ORDERED: SNQ50 PO (10:19)
[2017-01-20] MEDS ORDERED: CPR500 PO (15:19)
[2017-01-20] MEDS ORDERED: TRAM-10 PO (15:19)
[2017-01-20] MEDS ORDERED: LACT10CA3 PO (15:19)
[2017-01-20] MEDS ORDERED: ATV1 PO (15:19)
[2017-01-31] MEDS ORDERED: PEDI1CHW95 PO (10:51)
[2017-01-31] MEDS ORDERED: RGL/5 PO (15:52)
[2017-01-31] MEDS ORDERED: PANT40TA2 PO (15:52)
[2017-01-31] MEDS ORDERED: PLV75 PO (15:52)
[2017-01-31] MEDS ORDERED: VNTHFA/IN INH (15:52)
[2017-01-31] MEDS ORDERED: TPRSR/25 PO (15:52)
[2017-01-31] MEDS ORDERED: LOSA100T65 PO (15:52)
[2017-01-31] MEDS ORDERED: SNQ/50 PO (15:52)
[2017-01-31] MEDS ORDERED: ONDA-63 PO (15:52)
[2017-01-31] MEDS ORDERED: CYNI1000 IM (15:56)
[2017-01-31] MEDS ORDERED: FLUN0.02 NAE (17:48)
[2017-01-31] MEDS ORDERED: CYCL0.052 OPB (17:48)
[2017-01-31] MEDS ORDERED: BIOT10CA PO (17:48)
[2017-02-02] MEDS ORDERED: KFL250 PO (13:27)
== END 2016-10-02 03:30 | disposition home or self-care (01) ==
LOC: C.EDB 01:03 → C.EDA 03:30
DX: R42 Dizziness and giddiness (principal); T50.901A Poisoning by unspecified drugs, medicaments and biological substances, accidental (unintentional), initial encounter; R05 Cough; R19.7 Diarrhea, unspecified; R11.2 Nausea with vomiting, unspecified; E66.9 Obesity, unspecified; E11.9 Type 2 diabetes mellitus without complications; E78.5 Hyperlipidemia, unspecified; I10 Essential (primary) hypertension; F41.9 Anxiety disorder, unspecified; K21.9 Gastro-esophageal reflux disease without esophagitis; J45.909 Unspecified asthma, uncomplicated; Z79.02 Long term (current) use of antithrombotics/antiplatelets; Z79.899 Other long term (current) drug therapy; Z82.49 Family history of ischemic heart disease and other diseases of the circulatory system; Z83.3 Family history of diabetes mellitus; Z83.79 Family history of other diseases of the digestive system

== ENCOUNTER → 2016-11-12 | Outpatient (CLI) | payer MEDICARE ==
[~2016-11-12] MED LIST changes: +ALBUAER INH; +AMB5 PO; +ATV/1 PO; +BIOT10CA PO; +CEPH500C2 PO; +CPR500 PO; +CYCL0.052 OPB; +CYNI1000 IM; +CZR50 PO; +EFFSR75 PO; +FLUN0.02 NAE; +FLUT0.15 NAE; +KFL250 PO; +LACT10CA3 PO; +LACT1CAP3 PO; +LOSA100T65 PO; +MULT-506 PO; +ONDA-63 PO; +OXYSR/20 PO; +PANT40TA2 PO; +PEDI1CHW95 PO; +PLV75 PO; +PRMVC PV; +PROM25TA16 PO; +RGL/5 PO; +RXC5 PO; +SNQ/50 PO; +SNQ50 PO; +TPRSR/25 PO; +TRAM-10 PO; +ULT50 PO; +ULT50X PO; +VNTHFA/IN INH; +ZOLP5TAB6 PO
--- NOTE | 2016-11-13 12:50 | EEG Procedure Note ---
EEG Procedure Note Date of Service November 12, 2016. Start / End Times Start Time: 9:02 PM End Time: 9:22 PM Referring Physician Lupis Castellon History This is a 66-year-old female with episode of acute encephalopathy and slurred speech. EEG for further evaluation of possible seizure etiology. Home Medication List Scheduled Biotin (Cvs Biotin), 10 MG PO QAM Cholecalciferol (D 1000), 1 CAP PO TID Clopidogrel (Plavix), 75 MG PO QAM Cyclosporine (Ophth) (Restasis), 1 DROPS OP BID Doxepin (Sinequan), 75 MG PO QAM Doxepin (Sinequan), 150 MG PO HS Ergocalciferol (Vitamin D), 50,000 INTER.UNIT PO 3XWK Estrogens, Conjugated (Premarin), 0.5 GM TOP 3XWK Losartan Potassium (Cozaar), 100 MG PO QAM Metoclopramide (Reglan), 10 MG PO AC Metoprolol Succ (Toprol Xl) (Toprol-Xl), 25 MG PO QAM Pantoprazole (Protonix), 40 MG PO QAM Pediatric Multiple Vitamin W/ (Multivitamin Gummies Chil), 1 TAB PO QAM Scheduled PRN Albuterol (Ventolin Hfa), 2 PUFFS INH Q4 PRN for SOB/Wheezing Carisoprodol (Soma), 350 MG PO BID PRN for Pain Flunisolide (Nasal) (Flunisolide), 2 SPRY SALOMÓN DAILY PRN for allergies Lorazepam (Lorazepam), 1 MG PO QAM PRN for PRN Oxycodone/Acetaminophen 5MG/325MG (Percocet 5MG/325MG), 1 TABLET PO Q4H PRN for Pain Promethazine Hcl (Phenergan), 25 MG PO Q6H PRN for Nausea Promethazine Hcl (Phenergan Suppository), 25 MG [place] Q4H PRN for Nausea Temazepam (Restoril), 15 MG PO HS PRN for PRN Description This is a 21 electrode EEG with a single channel dedicated to limited EKG. The electrodes were placed in accordance with the International 10-20 system. Intermittent movement artifact noted At the start of the recording the patient was in an awake state. Background was well organized and composed of symmetric mixed alpha and beta frequencies. There was a symmetric well-formed moderate amplitude 9-10 Hz posterior dominant rhythm that was reactive to eye opening and closure. Hyperventilation was not done. Intermittent photic stimulation at various frequencies produced no abnormalities. There was no state changes or sleep transients. Interpretation This is a normal awake only routine EEG. There was no electrographic seizures or epileptiform discharges. Clinical Correlation A normal EEG does not rule out epilepsy if there is a strong clinical suspicion.
== END | disposition home or self-care (01) ==
LOC: C.NEUR 08:49
PROVIDERS: ATTEND Psychiatry & Neurology Neurology
DX: G93.40 Encephalopathy, unspecified (principal); R47.81 Slurred speech

== ENCOUNTER → 2016-12-04 | Outpatient (CLI) | payer MEDICARE, OTHER ==
[2016-12-04 13:12] LABS: PARTIAL THROMBOPLASTIN RATIO 0.9; PROTHROMBIN TIME (PATIENT) 10.2 SECONDS (9.0-12.0)
[2016-12-04 13:29] LABS: ESTIMATED AVERAGE GLUCOSE 134 mg/dl; HA1C FLAG Normal (Normal)
[2016-12-04 14:03] LABS: C-REACTIVE PROTEIN 0.33 mg/dl (0-0.29)
--- NOTE | 2016-12-09 11:45 | CODING QUERY MEDICAL NECESSITY ---
SUPPORTING DIAGNOSIS NEEDED A supporting diagnosis is required for the test/procedure performed on this patient in order for us to be reimbursed by the patient's insurance. Please provide a supporting diagnosis for the following test/procedure listed below next to the test name along with your signature. *If there is no additional diagnosis for this patient that would support the following test/procedure please document that below next to the test/procedure. Test(s)/Procedure(s) that require a supporting diagnosis: * HEMOGLOBIN A1C DIAGNOSIS: Provider Signature: Date: Thank you Kerri James hiogi Information Management Once completed, please kindly fax back to [phone] For questions please call [phone]
== END | disposition home or self-care (01) ==
LOC: C.LABMFLN 09:51
PROVIDERS: ATTEND Orthopaedic Surgery Sports Medicine
DX: Z01.818 Encounter for other preprocedural examination (principal)

== ENCOUNTER 2016-12-19 09:18 | Inpatient (IN) | payer MEDICARE, OTHER ==
[2016-12-05 09:25] VITALS: BMI 33.0
--- NOTE | 2016-12-18 17:11 | History and Physical ---
History & Physical Date & Time of Service: Dec 18, 2016 at 17:06 Chief Complaint: Left Shoulder Rotator Cuff Arthropathy Primary Care Physician: Conrad Mckeon D.O. History of Present Illness Source: patient Chronic left shoulder pain, h/o TSA in 2011 w no relief in pain, failed conservative treatment, + bone scan for loosening of TSA. Past Medical/Surgical History Medical Problems: (1) Anxiety Status: Chronic (2) Asthma Status: Chronic (3) C. difficile diarrhea Status: Resolved (4) DM2 (diabetes mellitus, type 2) Status: Chronic (5) GERD (gastroesophageal reflux disease) Status: Chronic (6) Hyperlipidemia Status: Chronic (7) Hypertension Status: Chronic (8) Morbid obesity Status: Chronic (9) Sacral back pain Status: Chronic Surgical Problems: (1) H/O gastric bypass Status: Chronic (2) H/O hernia repair Status: Chronic (3) H/O spinal fusion Status: Chronic (4) History of carpal tunnel surgery Status: Chronic (5) Previous section Status: Resolved (6) S/P appendectomy Status: Chronic (7) S/P cholecystectomy Status: Resolved (8) S/p left shoulder surgery Status: Chronic (9) S/P parathyroidectomy Status: Resolved (10) S/P tonsillectomy and adenoidectomy Status: Chronic (11) Total knee replacement status Status: Resolved Family History Diabetes mellitus Gallbladder disease Heart disease Hypertension Social History Smoking Status: Never Smoker Alcohol Use: none Drug Use: none Marital Status: Housing status: lives with significant other Immunizations History of Influenza Vaccine: Yes Influenza Vaccine Date: Apr 18, 2013 History of Tetanus Vaccine?: Yes History of Pneumococcal: Yes History of Hepatitis B Vaccine: Yes Multi-Drug Resistant Organisms History of MDRO: No Allergies Coded Allergies: Atorvastatin (Verified Allergy, Unknown, myalgias per PCP note , 12/05/16) Rosuvastatin (Unverified Allergy, Unknown, MUSCLE ACHES, 12/05/16) CI Pigment Blue 63 (Verified Adverse Reaction, Mild, PSYCHOSIS, 12/05/16) Duloxetine (Verified Adverse Reaction, Mild, PSYCHOSIS, 12/05/16) Gabapentin (Verified Adverse Reaction, Mild, PSYCHOSIS, 12/05/16) Morphine (Verified Adverse Reaction, Mild, NAUSEA, 12/05/16) NSAIDs (Verified Adverse Reaction, Unknown, s/p bariatric surgery, 12/05/16 ) per gmg Home Medications Scheduled Biotin (Cvs Biotin), 10 MG PO QAM Cholecalciferol (D 1000), 1 CAP PO TID Clopidogrel (Plavix), 75 MG PO QAM Cyclosporine (Ophth) (Restasis), 1 DROPS OP BID Doxepin (Sinequan), 75 MG PO QAM Doxepin (Sinequan), 150 MG PO HS Ergocalciferol (Vitamin D), 50,000 INTER.UNIT PO 3XWK Losartan Potassium (Cozaar), 100 MG PO QAM Metoclopramide (Reglan), 10 MG PO AC Metoprolol Succ (Toprol Xl) (Toprol-Xl), 12.5 MG PO QAM Pantoprazole (Protonix), 40 MG PO QAM Pediatric Multiple Vitamin W/ (Multivitamin Gummies Chil), 1 TAB PO QAM Scheduled PRN Albuterol (Ventolin Hfa), 2 PUFFS INH Q4 PRN for SOB/Wheezing Estrogens, Conjugated (Premarin), 0.5 GM TOP 3XWK PRN for PRN Flunisolide (Nasal) (Flunisolide), 2 SPRY SALOMÓN DAILY PRN for allergies Lorazepam (Lorazepam), 1 MG PO QAM PRN for PRN Oxycodone/Acetaminophen 5MG/325MG (Percocet 5MG/325MG), 1 TABLET PO Q6H PRN for Pain Promethazine Hcl (Phenergan), 25 MG PO Q6H PRN for Nausea Review of Systems Musculoskeletal: + joint pain Physical Exam General Appearance: WD/WN Head: normocephalic, atraumatic Eyes: normal inspection, PERRL ENT: normal ENT inspection Neck: supple, thyroid normal Respiratory/Chest: lungs clear Cardiovascular: regular rate, rhythm Abdomen/GI: normal bowel sounds, non tender Left shoulder AROM to 80 FE w pain, PROM to 140 w pain, 3+/5 strength, N/V+. Impression Assessment and Plan Chronic left shoulder pain since TSA in 2011, + bone scan. Conversion TSA to Reversed TSA. Advanced Directives Existing Living Will: Yes Existing Power of Goat Farmer: Yes
[2016-12-19] VITALS (7 sets, daily range): BP systolic 105–152; BP diastolic 64–96; PULSE 98–110; TEMP 36.7–37.2; O2SAT 92–96; Ht 160 cm; Wt 86.4 kg
[~2016-12-19] VITALS: Ht 160 cm; Wt 86.4 kg
[~2016-12-19 09:18] MED LIST changes: +ACETAMINOPHEN 500 MG TAB PO SCH; -ALBUAER INH; -AMB5 PO; -ATV/1 PO; -BIOT10CA PO; -CARI350T28 PO; +CEFAZOLIN 2000 MG/60 ML D5W 60 ML IV SCH; -CEPH500C2 PO; -CPR500 PO; -CYCL0.052 OPB; -CYNI1000 IM; -CZR50 PO; +DEXAMETHASONE 4 MG TAB PO SCH; +DEXAMETHASONE SOD INJ 4 MG/ML VIAL ONE; -EFFSR75 PO; +FAMOTIDINE 20 MG TAB PO SCH; +FENTANYL CITRATE INJ 50 MCG/1 ML 2 ML VIAL ONE; -FLUN0.02 NAE; -FLUT0.15 NAE; +GABAPENTIN 300 MG CAP PO SCH; +GLYCOPYRROLATE INJ 0.2 MG/ML VIAL ONE; -KFL250 PO; -LACT10CA3 PO; -LACT1CAP3 PO; +LACTATED RINGER'S 1000ML 1,000 ML IV SCH; +LIDOCAINE HCL 2% 2 ML VIAL (20MG/ML) ONE; -LOSA100T65 PO; +METOCLOPRAMIDE HCL 10 MG TAB PO SCH; +MIDAZOLAM HCL 1 MG/ML 2ML VIAL ONE; -MULT-506 PO; +NEOSTIGMINE METHYLSULFATE 5 MG/5 ML SYR ONE; -ONDA-63 PO; +ONDANSETRON INJ 2 MG/ML 2 ML VIAL ONE; -OXYSR/20 PO; -PANT40TA2 PO; -PEDI1CHW95 PO; -PLV75 PO; -PRMVC PV; -PROM25SU28 PR; -PROM25TA16 PO; +PROPOFOL IV EMULSION 10 MG/ML 20 ML VIAL IV ONE; -RGL/5 PO; +ROCURONIUM BROMIDE 10 MG/ML 5 ML VIAL ONE; +ROPIVACAINE 0.5% 5 MG/ML 30 ML VIAL ONE; -RXC5 PO; -SNQ/50 PO; -SNQ50 PO; -TEMA15CA4 PO; -TPRSR/25 PO; -TRAM-10 PO; -ULT50 PO; -ULT50X PO; +VANCOMYCIN INJ 1,300 MG in SODIUM CHLORIDE 0.9% 250ML 250 ML IV SCH; -VNTHFA/IN INH; -ZOLP5TAB6 PO
[2016-12-19] MEDS ORDERED: HYDROmorphone INJ 1 MG/ML SYR IV PRN (11:15)
[2016-12-19] MEDS ORDERED: EpHEDrine SULFATE INJ 50 MG/ML AMP IV PRN ×2 (11:15→13:30)
[2016-12-19] MEDS ORDERED: MEPERIDINE HCL 25 MG/ML CARP IV PRN (11:15)
[2016-12-19] MEDS ORDERED: LABETALOL HCL IV 5 MG/ML 20ML IV PRN ×2 (11:15→13:30)
[2016-12-19] MEDS ORDERED: ONDANSETRON INJ 2 MG/ML 2 ML VIAL IV PRN ×3 (11:15→16:00)
[2016-12-19] MEDS ORDERED: FENTANYL CITRATE INJ 50 MCG/1 ML 2 ML VIAL IV PRN ×2 (11:15→13:30)
[2016-12-19] MEDS ORDERED: ATROPINE SULFATE 0.1 MG/ML 5ML SYR IV PRN ×2 (11:15→13:30)
--- NOTE | 2016-12-19 11:18 | History & Physical Bridge Note ---
H&P Re-Evaluation Bridge Note: I have examined the patient, reviewed the History & Physical and in the interval since the performance of the History & Physical I have noted the following changes of clinical significance: No changes noted
[2016-12-19] MEDS ORDERED: MIDAZOLAM HCL 1 MG/ML 2ML VIAL ONE (11:19)
[2016-12-19] MEDS ORDERED: VANCOMYCIN HCL 1000MG/20ML VIAL ONE (11:25)
[2016-12-19] MEDS ORDERED: BACITRACIN 50000 UNIT VIAL ONE (11:25)
[2016-12-19] MEDS ORDERED: EpINEphrine INJ 1MG/ML AMP 1 MG/ML AMP ONE (11:28)
[2016-12-19] MEDS ORDERED: VASOPRESSIN 20 UNIT/ML VIAL ONE (12:17)
[2016-12-19] MEDS ORDERED: SODIUM CHLORIDE 0.9% INJ 10 ML VIAL ONE (12:17)
[2016-12-19] MEDS ORDERED: PHENYLEPHRINE 100MCG/ML 5ML SYR ONE (12:18)
[2016-12-19] MEDS ORDERED: METOCLOPRAMIDE HCL INJ 5 MG/ML 2 ML VIAL IV PRN (13:30)
[2016-12-19] MEDS ORDERED: MoRPHine SULFATE 10 MG/ML CARP/VIAL IV PRN (13:30)
[2016-12-19] MEDS ORDERED: PHENYLEPHRINE 100MCG/ML 5ML SYR IV PRN (13:30)
[2016-12-19] MEDS ORDERED: DEXAMETHASONE SOD INJ 4 MG/ML VIAL IV PRN (13:30)
[2016-12-19] MEDS ORDERED: ROCURONIUM BROMIDE 10 MG/ML 5 ML VIAL ONE (15:05)
[2016-12-19] MEDS ORDERED: EpINEphrine HCL INJ 1 MG/ML 5ML SYRINGE ONE (15:10)
[2016-12-19] MEDS ORDERED: ALBUTEROL HFA 8 GM INHALER INH PRN (16:00)
[2016-12-19] MEDS ORDERED: PROMETHAZINE HCL 25 MG TAB PO PRN (16:00)
[2016-12-19] MEDS ORDERED: ZOLPIDEM TARTRATE 5 MG TAB PO PRN (16:00)
[2016-12-19] MEDS ORDERED: BISACODYL 10 MG SUPP PR PRN (16:00)
[2016-12-19] MEDS ORDERED: NALOXONE HCL 0.4 MG/1 ML VIAL/CARP IV PRN (16:00)
[2016-12-19] MEDS ORDERED: SOD PHOSPHATE/SOD BIPHOSPHATE ENEMA 132 ML BTL PR PRN (16:00)
[2016-12-19] MEDS ORDERED: MAGNESIUM HYDROXIDE SUSP 30 ML UDC PO PRN (16:00)
[2016-12-19] MEDS ORDERED: PREMARIN VAG CRM 14 APPLN/30 GM TUBE TOP PRN (16:00)
[2016-12-19] MEDS ORDERED: NovoLIN-R INSULIN PER UNIT CHARGE ONE (16:26)
[2016-12-19] MEDS ORDERED: INSULIN HUMAN REGULAR PER UNIT 10 UNITS in SYRINGE 0 ML IV STA (16:27)
--- NOTE | 2016-12-19 16:47 | DIAGNOSTIC IMAGING REPORT ---
LEFT SHOULDER 2 VIEWS CLINICAL HISTORY: Postoperative examination. FINDINGS: 2 portable views of the left shoulder are compared to study dated 09/06/2016. The skeletal structures are osteopenic. No fracture is seen in the left shoulder. A left shoulder arthroplasty is in near-anatomic alignment. There are expected postoperative changes overlying the left shoulder including skin clips, a surgical drain, subcutaneous gas, and soft tissue swelling. Widening at the acromioclavicular joint may be on a postoperative basis. Numerous small radiodensities are seen around the shoulder joint, possibly representing antibiotic implants. The imaged left lung parenchyma appears clear noting left basilar atelectasis. IMPRESSION: Expected postoperative findings status post left shoulder arthroplasty. No acute fracture is seen. Electronically signed by: Jarod Singleton M.D. 12/19/2016 4:45 PM Dictated Date/Time: 12/19/2016 4:44 PM
--- NOTE | 2016-12-19 17:15 | DIAGNOSTIC IMAGING REPORT ---
SINGLE VIEW CHEST CLINICAL HISTORY: Dyspnea. FINDINGS: An AP, portable, upright chest radiograph is compared to study dated 10/02/2016. The examination is degraded by portable technique, large body habitus, motion artifact, and patient rotation. The heart is enlarged and there is atherosclerotic calcification of the thoracic aorta. The pulmonary vasculature is noncongested. Chronic interstitial thickening is similar to previous. Left basilar consolidation likely represents atelectasis. The right lung is grossly clear no large pleural effusion or pneumothorax is seen. The skeletal structures are osteopenic. Degenerative changes noted in the thoracic spine. Fusion hardware is partially imaged in the upper lumbar spine. A left shoulder arthroplasty is in place. Skin clips project over the left shoulder and there is subcutaneous gas, likely related to recent surgery. IMPRESSION: 1. Cardiomegaly without radiographic evidence of congestive failure. 2. There is left basilar consolidation, likely representing atelectasis. Clinical correlation will be required. 3. The right lung appears clear. 4. Postoperative change is noted in the left shoulder. Electronically signed by: Jarod Singleton M.D. 12/19/2016 5:13 PM Dictated Date/Time: 12/19/2016 5:12 PM
--- NOTE | 2016-12-19 17:24 | Anesthesiology Progress Note ---
Anesthesia Post Op Note Date & Time Dec 19, 2016 at 17:24 Vital Signs Pain Intensity: 0 Vital Signs Past 12 Hours Date Time Temp Pulse Resp B/P (MAP) Pulse Ox O2 Delivery O2 Flow Rate FiO2 12/19/16 17:05 110 16 121/71 98 Nasal Cannula 2 12/19/16 16:55 107 16 121/71 97 Nasal Cannula 2 12/19/16 16:45 110 16 119/65 98 Nasal Cannula 2 12/19/16 16:35 109 16 100/66 97 Nasal Cannula 2 12/19/16 16:25 108 16 94/55 98 Nasal Cannula 2 12/19/16 16:15 96 16 99/56 98 Mask 10 12/19/16 16:05 88 16 116/51 99 Mask 10 12/19/16 15:58 36.8 88 16 107/74 99 Mask 10 12/19/16 10:10 37.2 98 20 152/96 94 Room Air Notes Mental Status: alert / awake / arousable, participated in evaluation Pt Amnestic to Procedure: Yes Nausea / Vomiting: adequately controlled Pain: adequately controlled Airway Patency, RR, SpO2: stable & adequate BP & HR: stable & adequate Hydration State: stable & adequate Anesthetic Complications: no major complications apparent
--- NOTE | 2016-12-19 18:41 | [facility] Operative Report ---
Operative Report Operative Date Dec 19, 2016. Pre-Operative Diagnosis Left Painful Shoulder Replacement, Torn Left Rotator Cuff Post-Operative Diagnosis same, loose glenoid component, synovitis with osteolysis, nonrepairable cuf Procedure(s) Performed Revision of a total shoulder replacement (both components) to a reversed total shoulder replacement including allograft bone graft to glenoid and placement of antibiotic beads. Patient was taken to the operating room incised under general anesthetic region block anesthetic. Patient's placed on the operating room table in a 40 beachchair position. Left shoulder exam demonstrated subacromial crepitation good passive range of motion obesity the arm with stretched out skin and fat consistent with history of prior gastric bypass type procedure. Patient's incision was well-healed and benign. There was no swelling. There was no erythema or any signs of clinical infection. An anterior deltopectoral approach was performed via the patient's prior longitudinal incision in the deltopectoral interval area. After the arm was sterilely prepped with ChloraPrep V incision was made the subcutaneous tissues were dissected down to the fascia. There were some remnants of the cephalic vein but there is no continuous vein identified. The interval was dissected down through scar tissue between the deltoid and pectoralis tendon. There was scar tissue adjacent to the conjoined tendon and biceps tendon which was transferred to that tendon on previous surgery. That repair was all intact. Scar tissue was dissected away from that and the underlying tissue was thin scar tissue and the patient had no meaningful subscapularis tendon tissue which apparently had torn and retracted. They're few strands of supra-SMAS tendon tissue superiorly but majority of the super space tendon tissue was just scar tissue and thickened capsular type tissue and the patient still had infraspinatus and teres minor tendons that were intact. The scarred bursa was resected the subdeltoid adhesions were released some of the upper pectoralis was released so we could get better inferior exposure. Incision was made from the prosthetic down to the bicipital groove along the bone to the upper pectoral insertion. A subperiosteal dissection was performed along the neck gradually released tissue until we could visualize the prosthetic head and interface with the stem. There was synovial tissue periosteal-type tissue that we took several samples of along the humerus implant laterally at the humeral implant undersurface head area anterior neck area that was sent for frozen section. Also sampled synovial tissue from within the joint for frozen section and also sub-glenoid component soft tissue for frozen section. It was noted that there was erosion of the calcar neck area of the proximal humerus by at least 2 cm of bone that underwent ostial lysis and or stress shielding and basically resorbed. There is no loosening of the femoral component. An Ascend stem had been placed from [employer]. The humeral head was dislodged from the stem using the tuning fork device. The stem was well fixed so we had to work around the stem using flexible osteotomes to loosen the stem so we could disimpact it from the shaft. This took some time as this stem was significantly healed with excellent bone ingrowth. The slap hammer was placed into the implant and eventually removed. There was noted to be a pedestal below the stem. The original stem was a standard length so we chose to go ahead with the new ascend flex implant. We used a long stem implant. I first reamed out the pedestal and then used broaches up to a 3 which had good fit and fill. I buried the slightly from the metaphyseal bone and then used an oscillating saw to revise to cut staying still above the level of the infraspinatus tendon attachment. The cup protector was placed and then the humerus was retracted posterior to the glenoid. The glenoid component was loose and the actual surface of the component had fractured from the stem of the keeled type component. The stem was still within the glenoid vault but was also loose. The loose fragments were removed as well as any loose cement. Some of the well fixed cement was left in place. There was a contained defect with central ostial lysis and the entire rim around the outer glenoid was all intact. There is enough bone to place a primary baseplate for the reversed replacement position. The frozen sections came back at 2 white blood cells per high-powered field no signs of infection and primary cells were monocytes. I chose to use a 29 baseplate to get better rim coverage. The central drill hole was made however we did penetrate through the inner table a few millimeters but was necessary to capture enough bone for a stable implant. The reamer for the baseplate was utilized just enough to get good bone contact on the backside of the implant. All the osteolytic synovial type tissue was curetted out from the glenoid and this was thoroughly debrided using a pituitary rongeur and curettes. After copious irrigation with antibiotic solution, the 29 mm baseplate from the [employer] reversed 2 shoulder replacement system was impacted into position after first packing cancellus allograft chunks to fill all the osteolytic defects up to the level of the back of the baseplate. The baseplate was transfixed with anterior posterior and compression screws of 20 and 29 mm and a superior and inferior locking screws of 23 and 35 mm respectively. Throughout the 4 screws had excellent fixation one screw was fair to poor fixation anteriorly. Basically it was solid in general. The [employer] reamer was used for the 36 mm sphere. He is at +2 offset sphere with the offset placed inferiorly. This was impacted onto the baseplate and the screw was tightened and the sphere was assessed to be stable. Attention was taken back to the humerus and identified trial reduction and a +9 insert and we used a high offset reversed tray which gave the best coverage. There is no shuck and excellent stability through full motion noted. The trials were then removed and the canal was irrigated copiously with antibiotic solution with pulsatile lavage. A cement restrictor was placed at the appropriate level. The final implant was assembled which was the ascend flex longstem IIIB stem assembled to the +0 high offset reversed tray assembled to the 36 mm +9 mm thick reversed insert. We used an epinephrine-soaked tampons to dry the canal and then he is a cement gun to place Palacos G cement into the canal and then cemented the distal stem but all proximal stem was left for bony ingrowth around the proximal implant. All excess cement was cleared and the implant was held in position until the cement cured. The humerus was then reduced to the glenoid sphere assessed range of motion be stable. Patient had about 115 of forward elevation 90 of abduction and 70 of external rotation without any instability noted. After copious irrigation. I placed stimulan antibiotic beads with vancomycin in the beads into the joint under the deltoid and closed deltopectoral over 2 Hemovac drains. More antibiotic beads were placed outside the deltopectoral closure and the subcutaneous tissues were closed interrupted 2 -0 Polysorb and the skin was closed with yuridia and sterile dressings were applied. Shoulder immobilizer was placed. Alonso CHU was first leveler. He function is persistently entire procedure. Assisted in patient positioning prepping draping our positioning soft tissue traction instrument management and will participate in the postoperative care the patient. Surgeon Dr. Funes Supervisor Graphite Surgeon(s) Alonso Dinero PA-C Estimated Blood Loss 100 cc Findings Loose glenoid, osteolysis, synovitis, stable humeral component, rotator cuff tear nonrepairable. Specimens Frozen Section #1 Implant surface humeral neck #2 Synovial Joint Capsule Picked up at 1259 #3 Subglenoid implant tissue Picked up at 1306 Culture #1 Left shoulder - gram stain, culture and sensitivity, aerobic and anaerobic Complication(s) None Disposition Recovery Room / PACU Indications Torn rotator s/p total shoulder replacement with osteolysis possible glenoid loosening I attest to the content of the Intraoperative Record and any orders documented therein. Any exceptions are noted below.
[2016-12-19] MEDS ORDERED: GLUCAGON FOR INJ 1 MG VIAL SQ PRN (19:30)
[2016-12-19] MEDS ORDERED: DEXTROSE 50% 50 ML SYR IV PRN (19:30)
[2016-12-19] MEDS ORDERED: GLUCOSE 40% GEL 15 GM TUBE PO PRN (19:30)
[2016-12-19] MEDS ORDERED: GLUCOSE 10 TABS/TUBE PO PRN (19:30)
[2016-12-19] MEDS: OXYCODONE HCL IR 5 MG TAB (IMMEDIATE RELEASE) PO PRN (19:32)
[2016-12-19] MEDS ORDERED: D5W AND 1/2NSS + 20MEQ KCL 1,000 ML IV SCH (19:45)
[2016-12-19] MEDS ORDERED: SODIUM CHLOR 0.45% + 20MEQ KCL 1,000 ML IV ONE (20:30)
[2016-12-19] MEDS: INSULIN ASPART 100 UNITS/ML 3 ML PEN SC SCH (20:47)
[2016-12-19] MEDS: DOCUSATE SODIUM 100 MG CAP PO SCH (21:02)
[2016-12-19] MEDS: CHOLECALCIFEROL 1000 INTER.UNIT TAB PO SCH (21:03)
[2016-12-19] MEDS: DOXEPIN HCL 75 MG CAP PO SCH (21:03)
[2016-12-19] MEDS: LORAZEPAM 1 MG TAB PO PRN (21:03)
[2016-12-19] MEDS: OXYCODONE HCL 10 MG TABCR (OXYCONTIN) PO SCH (21:03)
[2016-12-19] MEDS: ACETAMINOPHEN 500 MG TAB PO SCH (21:22)
[2016-12-19] MEDS ORDERED: VANCOMYCIN INJ 1,300 MG in SODIUM CHLORIDE 0.9% 250ML 250 ML IV SCH (22:00)
--- NOTE | 2016-12-19 23:27 | History and Physical ---
History & Physical Date & Time of Service: Dec 19, 2016 at 23:23 Chief Complaint: Left Shoulder Rotator Cuff Arthropathy Primary Care Physician: Conrad Mckeon D.O. History of Present Illness Chronic left shoulder pain, h/o TSA in 2011 w no relief in pain, failed conservative treatment, + bone scan for loosening of TSA.Has had pre-op evaluation and cleared for surgery .Outpatient chart ,lab work and imaging studies were reviewed.Denies any acute symptoms following surgery Past Medical/Surgical History Medical Problems: (1) Anxiety Status: Chronic (2) Asthma Status: Chronic (3) C. difficile diarrhea Status: Resolved (4) DM2 (diabetes mellitus, type 2) Status: Chronic (5) GERD (gastroesophageal reflux disease) Status: Chronic (6) Hyperlipidemia Status: Chronic (7) Hypertension Status: Chronic (8) Morbid obesity Status: Chronic (9) Sacral back pain Status: Chronic Surgical Problems: (1) H/O gastric bypass Status: Chronic (2) H/O hernia repair Status: Chronic (3) H/O spinal fusion Status: Chronic (4) History of carpal tunnel surgery Status: Chronic (5) Previous section Status: Resolved (6) S/P appendectomy Status: Chronic (7) S/P cholecystectomy Status: Resolved (8) S/p left shoulder surgery Status: Chronic (9) S/P parathyroidectomy Status: Resolved (10) S/P tonsillectomy and adenoidectomy Status: Chronic (11) Total knee replacement status Status: Resolved Family History Diabetes mellitus Gallbladder disease Heart disease Hypertension Social History Smoking Status: Never Smoker Alcohol Use: none Drug Use: none Marital Status: Housing status: lives with significant other Immunizations History of Influenza Vaccine: Yes Influenza Vaccine Date: Apr 18, 2013 History of Tetanus Vaccine?: Yes History of Pneumococcal: Yes History of Hepatitis B Vaccine: Yes Multi-Drug Resistant Organisms History of MDRO: No Allergies Coded Allergies: Atorvastatin (Verified Allergy, Unknown, myalgias per PCP note , 12/19/16) Rosuvastatin (Unverified Allergy, Unknown, MUSCLE ACHES, 12/19/16) CI Pigment Blue 63 (Verified Adverse Reaction, Mild, PSYCHOSIS, 12/19/16) Duloxetine (Verified Adverse Reaction, Mild, PSYCHOSIS, 12/19/16) Gabapentin (Verified Adverse Reaction, Mild, PSYCHOSIS, 12/19/16) Morphine (Verified Adverse Reaction, Mild, NAUSEA, 12/19/16) NSAIDs (Verified Adverse Reaction, Unknown, s/p bariatric surgery, 12/19/16 ) per gmg Home Medications Scheduled Biotin ([facility] Biotin), 10 MG PO QAM Cholecalciferol (D 1000), 1 CAP PO TID Clopidogrel (Plavix), 75 MG PO QAM Cyclosporine (Ophth) (Restasis), 1 DROPS OP BID Doxepin (Sinequan), 75 MG PO QAM Doxepin (Sinequan), 150 MG PO HS Ergocalciferol (Vitamin D), 50,000 INTER.UNIT PO 3XWK Losartan Potassium (Cozaar), 100 MG PO QAM Metoclopramide (Reglan), 10 MG PO AC Metoprolol Succ (Toprol Xl) (Toprol-Xl), 12.5 MG PO QAM Pantoprazole (Protonix), 40 MG PO QAM Pediatric Multiple Vitamin W/ (Multivitamin Gummies Chil), 1 TAB PO QAM Scheduled PRN Albuterol (Ventolin Hfa), 2 PUFFS INH Q4 PRN for SOB/Wheezing Estrogens, Conjugated (Premarin), 0.5 GM TOP 3XWK PRN for PRN Flunisolide (Nasal) (Flunisolide), 2 SPRY SALOMÓN DAILY PRN for allergies Lorazepam (Lorazepam), 1 MG PO QAM PRN for PRN Oxycodone/Acetaminophen 5MG/325MG (Percocet 5MG/325MG), 1 TABLET PO Q6H PRN for Pain Promethazine Hcl (Phenergan), 25 MG PO Q6H PRN for Nausea Physical Exam Vital Signs Date Time Temp Pulse Resp B/P (MAP) Pulse Ox O2 Delivery O2 Flow Rate FiO2 12/19/16 21:00 36.9 109 16 118/77 (91) 94 Room Air 12/19/16 19:51 37.2 110 16 136/85 (102) 94 Room Air 12/19/16 19:30 Room Air 12/19/16 18:50 110 18 133/82 (99) 95 Room Air 12/19/16 18:20 37.0 106 16 146/94 (111) 96 Nasal Cannula 2.0 12/19/16 17:50 Nasal Cannula 2.0 12/19/16 17:50 36.7 109 16 119/80 (93) 96 Nasal Cannula 2.0 12/19/16 17:50 Nasal Cannula 2.0 12/19/16 17:25 108 16 110/71 98 Nasal Cannula 2 12/19/16 17:15 110 16 103/66 98 Nasal Cannula 2 12/19/16 17:05 110 16 121/71 98 Nasal Cannula 2 12/19/16 16:55 107 16 121/71 97 Nasal Cannula 2 12/19/16 16:45 110 16 119/65 98 Nasal Cannula 2 12/19/16 16:35 109 16 100/66 97 Nasal Cannula 2 12/19/16 16:25 108 16 94/55 98 Nasal Cannula 2 12/19/16 16:15 96 16 99/56 98 Mask 10 12/19/16 16:05 88 16 116/51 99 Mask 10 12/19/16 15:58 36.8 88 16 107/74 99 Mask 10 12/19/16 10:10 37.2 98 20 152/96 94 Room Air General Appearance: WD/WN Head: normocephalic, atraumatic Eyes: normal inspection, PERRL ENT: normal ENT inspection Neck: supple, thyroid normal Respiratory/Chest: lungs clear Cardiovascular: regular rate, rhythm Abdomen/GI: normal bowel sounds, non tender Back: normal inspection Left shoulder AROM to 80 FE w pain, PROM to 140 w pain, 3+/5 strength, N/V+. Diagnostics Laboratory Results Results Past 24 Hours Test 12/19/16 09:36 12/19/16 16:16 12/19/16 17:31 Range/Units Bedside Glucose 141 222 202 70-90 mg/dl Microbiology Results 12/19/16 Gram Stain, Received Pending 12/19/16 Bacterial Culture, Received Pending Diagnostic Radiology CXR::1. Cardiomegaly without radiographic evidence of congestive failure. 2. There is left basilar consolidation, likely representing atelectasis. Clinical correlation will be required. 3. The right lung appears clear. Impression Assessment and Plan S/P Left Shoulder Arthroplasty Management as per Ortho Remains stable following surgery HTN, BP controlled Continue current medications Asthma No acute attack Diabetes Hold Metformin SSI Check blood sugar ACHS Remains medically stable with unremarkable physical examination following Left Shoulder surgery Advanced Directives Existing Living Will: Yes Existing Power of Hand Brim Ironer: Yes VTE Prophylaxis VTE Risk Assessment Done? Y/N: Yes Risk Level: Moderate
[2016-12-20] MEDS ORDERED: RESTASIS~ORDER AWAITING ACTION SCH
[2016-12-20] MEDS ORDERED: FLUNISOLIDE PRN ×2 (01:15)
[2016-12-20] MEDS: OXYCODONE HCL IR 5 MG TAB (IMMEDIATE RELEASE) PO PRN ×5 (02:46→20:38)
[2016-12-20 03:06] VITALS: BP 123/80; PULSE 78; TEMP 36.9; O2SAT 92
[2016-12-20] MEDS: HYDROmorphone INJ 0.5 MG/0.5 ML SYR IV PRN ×2 (04:57→18:30)
[2016-12-20 06:32] LABS: HEMATOCRIT 35.5 % (37-47); MEAN CELL VOLUME 95.2 fL (80-100); MEAN CORPUSCULAR HEMOGLOBIN 32.4 pg (25-34); MEAN CORPUSCULAR HGB CONC 34.1 g/dl (32-36); MEAN PLATELET VOLUME 9.3 fL (7.4-10.4); PLATELET COUNT 263 K/uL (130-400); RED BLOOD COUNT 3.73 M/uL (4.2-5.4); WHITE BLOOD COUNT 11.61 K/uL (4.8-10.8)
[2016-12-20] MEDS: ACETAMINOPHEN 500 MG TAB PO SCH ×3 (06:32→20:42)
[2016-12-20 07:07] LABS: BUN/CREATININE RATIO 16.1 (10-20); CREATININE 0.76 mg/dl (0.60-1.20); POTASSIUM 4.6 mmol/L (3.5-5.1)
[2016-12-20 07:31] VITALS: BP 153/89; PULSE 95; TEMP 37; O2SAT 96
[2016-12-20] MEDS: METOCLOPRAMIDE HCL 10 MG TAB PO SCH ×3 (08:05→16:25)
[2016-12-20] MEDS: OXYCODONE HCL 10 MG TABCR (OXYCONTIN) PO SCH (08:46)
[2016-12-20] MEDS: LORAZEPAM 1 MG TAB PO PRN ×2 (08:47→16:21)
[2016-12-20] MEDS: PANTOprazole SOD 40 MG TAB PO SCH (08:49)
[2016-12-20] MEDS: FLINTSTONES COMPLETE CHEWABLE TAB PO SCH (08:49)
[2016-12-20] MEDS: CLOPIDOGREL BISULFATE 75 MG TAB PO SCH (08:49)
[2016-12-20] MEDS: DOXEPIN HCL 75 MG CAP PO SCH ×2 (08:50→20:39)
[2016-12-20] MEDS: CHOLECALCIFEROL 1000 INTER.UNIT TAB PO SCH ×3 (08:50→20:40)
[2016-12-20] MEDS: DOCUSATE SODIUM 100 MG CAP PO SCH ×2 (08:52→20:40)
[2016-12-20] MEDS: INSULIN ASPART 100 UNITS/ML 3 ML PEN SC SCH ×4 (08:53→20:39)
[2016-12-20 08:56] VITALS: BP 112/74; PULSE 110
[2016-12-20] MEDS: LOSARTAN POTASSIUM 50 MG TAB PO SCH (08:57)
[2016-12-20] MEDS: METOPROLOL SUCC 25MG EXT REL TAB PO SCH (08:58)
[2016-12-20] MEDS ORDERED: PANTOprazole SOD 40 MG TAB PO SCH (09:00)
[2016-12-20] MEDS ORDERED: BIOTIN 10 MG PO SCH (09:00)
--- NOTE | 2016-12-20 10:15 | Orthopedic Progress Note ---
Orthopedic Progress Note Date of Service Dec 20, 2016. Subjective Post OP Day: 1 Reports: feeling well, Denies: chest pain, SOB, nausea / vomiting, light headedness, calf pain Additional Notes: No pain currently. States the regional block is still working well. Concerned with pain control once the block wears off due to h/o gastric bypass surgery and use of narcotics. Objective capillary refill less than 2 sec., dressing C/D/I, A&O x3, hemovac drainage ( 100ml latest shift.) Awake, alert. Moving her fingers but still with some residual numbness from block. Date Time Temp Pulse Resp B/P (MAP) Pulse Ox O2 Delivery O2 Flow Rate FiO2 12/20/16 08:56 110 112/74 (87) 12/20/16 07:31 37.0 95 16 153/89 (110) 96 Room Air 12/20/16 03:06 36.9 78 18 123/80 (94) 92 Room Air 12/19/16 23:53 Room Air 12/19/16 22:52 37.2 110 17 105/64 (78) 92 Room Air 12/19/16 21:00 36.9 109 16 118/77 (91) 94 Room Air 12/19/16 19:51 37.2 110 16 136/85 (102) 94 Room Air 12/19/16 19:30 Room Air 12/19/16 18:50 110 18 133/82 (99) 95 Room Air 12/19/16 18:20 37.0 106 16 146/94 (111) 96 Nasal Cannula 2.0 12/19/16 17:50 Nasal Cannula 2.0 12/19/16 17:50 36.7 109 16 119/80 (93) 96 Nasal Cannula 2.0 12/19/16 17:50 Nasal Cannula 2.0 12/19/16 17:25 108 16 110/71 98 Nasal Cannula 2 12/19/16 17:15 110 16 103/66 98 Nasal Cannula 2 12/19/16 17:05 110 16 121/71 98 Nasal Cannula 2 12/19/16 16:55 107 16 121/71 97 Nasal Cannula 2 12/19/16 16:45 110 16 119/65 98 Nasal Cannula 2 12/19/16 16:35 109 16 100/66 97 Nasal Cannula 2 12/19/16 16:25 108 16 94/55 98 Nasal Cannula 2 12/19/16 16:15 96 16 99/56 98 Mask 10 12/19/16 16:05 88 16 116/51 99 Mask 10 12/19/16 15:58 36.8 88 16 107/74 99 Mask 10 12/19/16 10:10 37.2 98 20 152/96 94 Room Air Laboratory Results 24 Hours: Test 12/20/16 05:47 Hematocrit 35.5 % Hemoglobin 12.1 g/dL Assessment & Plan Assessment: POD 1 s/p Left Revision TSA (1) Anxiety Status: Chronic (2) Asthma Status: Chronic (3) C. difficile diarrhea Status: Resolved (4) DM2 (diabetes mellitus, type 2) Status: Chronic (5) GERD (gastroesophageal reflux disease) Status: Chronic (6) Hyperlipidemia Status: Chronic (7) Hypertension Status: Chronic (8) Morbid obesity Status: Chronic (9) Sacral back pain Status: Chronic Plan: PT/OT for ambulation training/ADL's Medical Management by [facility] Service Discussed pain control with patient. Will continue present meds for now and change if needed. Pt with h/o using narotics off an on multiple times over the last 6-7 years due to multiple surgeries. Follow operative cultures - NGTD Inhouse Planning Pain Management: Oxycontin, Dilaudid, PO Tylenol, Oxy IR DVT Prophylaxis: TEDs, SCDs, other (Plavix) Discharge Planning Discharge Planning: home DVT Prophylaxis: other (Plavix)
[2016-12-20] MEDS: OXYCODONE HCL 20 MG TABCR (OXYCONTIN) PO SCH (13:31)
--- NOTE | 2016-12-20 13:40 | Progress Note ---
Internal Med Progress Note Date of Service: Dec 20, 2016. Provider Documentation: SUBJECTIVE: The patient was seen and examined Does nit feel great but denies any symptoms OBJECTIVE: Vital Signs-as noted below Exam: General-No distress at rest Eyes-normal ENT-normal Neck-supple Lungs-Minimal decrease in breath sound bilaterally Heart-Regular Abdomen-Benign,no masses,bowel sound present Extremities-NO edema Neuro-AAOx3 Lab data as noted below. ASSESSMENT & PLAN: S/P Left Shoulder Arthroplasty POD # 1 Management as per Ortho Remains stable following surgery HTN, BP controlled Continue current medications Asthma No acute attack Diabetes Hold Metformin SSI Check blood sugar ACHS Medically stable Vital Signs: Date Time Temp Pulse Resp B/P (MAP) Pulse Ox O2 Delivery O2 Flow Rate FiO2 12/20/16 10:20 Room Air 12/20/16 08:56 110 112/74 (87) 12/20/16 08:00 Room Air 12/20/16 07:31 37.0 95 16 153/89 (110) 96 Room Air 12/20/16 03:06 36.9 78 18 123/80 (94) 92 Room Air 12/19/16 23:53 Room Air 12/19/16 22:52 37.2 110 17 105/64 (78) 92 Room Air 12/19/16 21:00 36.9 109 16 118/77 (91) 94 Room Air 12/19/16 19:51 37.2 110 16 136/85 (102) 94 Room Air 12/19/16 19:30 Room Air 12/19/16 18:50 110 18 133/82 (99) 95 Room Air 12/19/16 18:20 37.0 106 16 146/94 (111) 96 Nasal Cannula 2.0 12/19/16 17:50 Nasal Cannula 2.0 12/19/16 17:50 36.7 109 16 119/80 (93) 96 Nasal Cannula 2.0 12/19/16 17:50 Nasal Cannula 2.0 12/19/16 17:25 108 16 110/71 98 Nasal Cannula 2 12/19/16 17:15 110 16 103/66 98 Nasal Cannula 2 12/19/16 17:05 110 16 121/71 98 Nasal Cannula 2 12/19/16 16:55 107 16 121/71 97 Nasal Cannula 2 12/19/16 16:45 110 16 119/65 98 Nasal Cannula 2 12/19/16 16:35 109 16 100/66 97 Nasal Cannula 2 12/19/16 16:25 108 16 94/55 98 Nasal Cannula 2 12/19/16 16:15 96 16 99/56 98 Mask 10 12/19/16 16:05 88 16 116/51 99 Mask 10 12/19/16 15:58 36.8 88 16 107/74 99 Mask 10 Lab Results: Results Past 24 Hours Test 12/19/16 16:16 12/19/16 17:31 12/20/16 05:47 12/20/16 07:54 Range/Units Bedside Glucose 222 202 145 70-90 mg/dl White Blood Count 11.61 4.8-10.8 K/uL Red Blood Count 3.73 4.2-5.4 M/uL Hemoglobin 12.1 12.0-16.0 g/dL Hematocrit 35.5 37-47 % Mean Corpuscular Volume 95.2 80-100 fL Mean Corpuscular Hemoglobin 32.4 25-34 pg Mean Corpuscular Hemoglobin Concent 34.1 32-36 g/dl RDW Standard Deviation 47.7 36.4-46.3 fL RDW Coefficient of Variation 13.8 11.5-14.5 % Platelet Count 263 130-400 K/uL Mean Platelet Volume 9.3 7.4-10.4 fL Sodium Level 137 136-145 mmol/L Potassium Level 4.6 3.5-5.1 mmol/L Chloride Level 104 98-107 mmol/L Carbon Dioxide Level 23 21-32 mmol/L Anion Gap 10.0 3-11 mmol/L Blood Urea Nitrogen 12 7-18 mg/dl Creatinine 0.76 0.60-1.20 mg/dl Est Creatinine Clear Calc Drug Dose 74.8 ml/min Estimated GFR () 94.1 Estimated GFR (Non- 81.2 BUN/Creatinine Ratio 16.1 10-20 Random Glucose 118 70-99 mg/dl Calcium Level 9.0 8.5-10.1 mg/dl
[2016-12-20 14:57] VITALS: BP 114/77; PULSE 84; TEMP 36.8; O2SAT 92
[2016-12-20 23:09] VITALS: BP 135/86; PULSE 106; TEMP 36.7; O2SAT 94
[2016-12-21] MEDS: OXYCODONE HCL 20 MG TABCR (OXYCONTIN) PO SCH (01:10)
[2016-12-21] MEDS: ACETAMINOPHEN 500 MG TAB PO SCH (05:46)
[2016-12-21 06:53] LABS: HEMATOCRIT 34.8 % (37-47); MEAN CELL VOLUME 94.8 fL (80-100); MEAN CORPUSCULAR HEMOGLOBIN 31.1 pg (25-34); MEAN CORPUSCULAR HGB CONC 32.8 g/dl (32-36); MEAN PLATELET VOLUME 8.4 fL (7.4-10.4); PLATELET COUNT 206 K/uL (130-400); RED BLOOD COUNT 3.67 M/uL (4.2-5.4); WHITE BLOOD COUNT 6.22 K/uL (4.8-10.8)
[2016-12-21 07:26] VITALS: BP 116/79; PULSE 93; TEMP 36.7; O2SAT 93
[2016-12-21 07:28] LABS: BUN/CREATININE RATIO 17.4 (10-20); CALCIUM 8.8 mg/dl (8.5-10.1); CREATININE 0.88 mg/dl (0.60-1.20); POTASSIUM 4.2 mmol/L (3.5-5.1)
--- NOTE | 2016-12-21 08:27 | Orthopedic Progress Note ---
Orthopedic Progress Note Date of Service Dec 21, 2016. Subjective Post OP Day: 2 Reports: feeling well, complaints (shoulder a little sore this AM), Denies: chest pain, SOB, nausea / vomiting, light headedness Additional Notes: Per nursing, patient became confused last night and nursing found patient in the bathroom. She was not wearing her sling and she had removed her dressing and pulled her drain out. No obvious problems with the incision at that time. No other problems during the night. Pt awake, alert this AM and apologetic about taking her dressing off etc. Mild soreness in the shoulder this AM but no overt pain. Objective N/V intact, incision C/D/I, A&O x3, toes mobile Date Time Temp Pulse Resp B/P (MAP) Pulse Ox O2 Delivery O2 Flow Rate FiO2 12/21/16 07:26 36.7 93 17 116/79 (91) 93 Room Air 12/20/16 23:15 Room Air 12/20/16 23:09 36.7 106 18 135/86 (102) 94 Room Air 12/20/16 16:00 Room Air 12/20/16 14:57 36.8 84 16 114/77 (89) 92 Room Air 12/20/16 10:20 Room Air 12/20/16 08:56 110 112/74 (87) Laboratory Results 24 Hours: Test 12/21/16 06:40 Hematocrit 34.8 % Hemoglobin 11.4 g/dL Assessment & Plan Assessment: POD 2 s/p Left Revision TSA Confusion last night likely due to narcotic dosage change (1) Anxiety Status: Chronic (2) Asthma Status: Chronic (3) C. difficile diarrhea Status: Resolved (4) DM2 (diabetes mellitus, type 2) Status: Chronic (5) GERD (gastroesophageal reflux disease) Status: Chronic (6) Hyperlipidemia Status: Chronic (7) Hypertension Status: Chronic (8) Morbid obesity Status: Chronic (9) Sacral back pain Status: Chronic Plan: PT/OT for ambulation training/ADL's [facility] Confusion resolved Discussed pain control with patient. Will discontinue Dilaudid since Oxycontin was increased. Will continue present meds for now and change if needed. Pt with h/o using narotics off an on multiple times over the last 6-7 years due to multiple surgeries. Follow operative cultures - NGTD Discussed with Dr Fuens this AM. Plan for dc to home today. Inhouse Planning Pain Management: Oxycontin, PO Tylenol, Oxy IR DVT Prophylaxis: TEDs, SCDs, other (Plavix) Discharge Planning Discharge Planning: home Pain Management: Oxycontin, PO Tylenol, Oxy IR DVT Prophylaxis: other (Plavix)
[2016-12-21] MEDS ORDERED: NURSING VERBAL MED ORDER ONE (08:30)
[2016-12-21] MEDS: METOCLOPRAMIDE HCL 10 MG TAB PO SCH (08:51)
[2016-12-21] MEDS: FLINTSTONES COMPLETE CHEWABLE TAB PO SCH (08:52)
[2016-12-21] MEDS: CHOLECALCIFEROL 1000 INTER.UNIT TAB PO SCH (08:53)
[2016-12-21] MEDS: LOSARTAN POTASSIUM 50 MG TAB PO SCH (08:55)
[2016-12-21] MEDS: CLOPIDOGREL BISULFATE 75 MG TAB PO SCH (08:56)
[2016-12-21] MEDS: DOCUSATE SODIUM 100 MG CAP PO SCH (08:56)
[2016-12-21] MEDS: PANTOprazole SOD 40 MG TAB PO SCH (08:56)
[2016-12-21] MEDS: DOXEPIN HCL 75 MG CAP PO SCH (08:57)
[2016-12-21] MEDS: METOPROLOL SUCC 25MG EXT REL TAB PO SCH (08:59)
[2016-12-21] MEDS ORDERED: OXYCODONE HCL 20 MG TABCR (OXYCONTIN) PO SCH (09:00)
[2016-12-21] MEDS: INSULIN ASPART 100 UNITS/ML 3 ML PEN SC SCH (09:02)
[2016-12-21] MEDS ORDERED: RXC5 PO (09:06)
[2016-12-21] MEDS ORDERED: OXYSR/20 PO (09:06)
--- NOTE | 2016-12-21 09:16 | Discharge Instructions ---
Discharge Instructions Date of Service Dec 21, 2016. Admission Reason for Admission: Left Shoulder Rotator Cuff Arthropathy Discharge Discharge Diagnosis / Problem: Left Shoulder Rotator Cuff Arthopathy s/p TSA Discharge Goals Goal(s): Decrease discomfort, Improve function Activity Recommendations Activity Limitations: per Instructions/Follow-up section Weightbearing Status: Left non-weightbearing . Instructions / Follow-Up Instructions / Follow-Up ACTIVITY RECOMMENDATIONS: SELF CARE INSTRUCTIONS AFTER TOTAL SHOULDER ARTHROPLASTY REVERSE A. You may do daily exercises as taught in physical therapy while in hospital. No lifting with the operative arm. B. You are to wear your sling/immobilizer at all times EXCEPT when performing your daily exercises and for hygiene purposes. C. You may perform dry, daily dressing changes. Please keep your incision covered. You may shower 48 hours after surgery. Do not apply soap or any ointment/ lotions directly over incision. Do not soak incision in bath tub/swimming pool. D. You may use ice as needed to operative shoulder. SPECIAL CARE INSTRUCTIONS: VERY IMPORTANT TO READ AND REVIEW A. There are a few signs you need to watch for after you are home. Call [facility] at [phone] if you experience any of the followin. Increased severe shoulder pain. Some pain is expected especially when you exercise. 2. Increased swelling in you shoulder or arm; pain or swelling in either upper extremity. 3. Any fluid drainage from the incision. 4. Shortness of breath or chest pain. B. Please call [facility] at [phone] if you have any questions or concerns about your operation or recovery. C. Call your physician if: 1. Temperature is greater than 101 degrees (F). 2. Pain is not relieved by prescribed pain medications. 3. Increase drainage or redness from incision. 4. Unanswered questions or concerns. FOLLOW UP VISIT: Please call [facility] at [phone] to schedule a follow up appointment with Dr. Funes or his PA in 12-14 days from your surgery date. Current Hospital Diet Patient's current hospital diet: AHA Diet (Heart Healthy) Discharge Diet Recommended Diet: AHA Diet (Heart Healthy) Procedures Procedures Performed: Left Conversion Total Shoulder Arthroplasty to Reversed Total Shoulder Arthroplasty Pending Studies Studies pending at discharge: yes List of pending studies: Intra operative cultures pending Laboratory Results Hemoglobin A1c Test 12/04/16 10:22 Range/Units Estimated Average Glucose 134 mg/dl Hemoglobin A1c 6.3 H 4.5-5.6 % Medical Emergencies . Who to Call and When: Medical Emergencies: If at any time you feel your situation is an emergency, please call 911 immediately. . Non-Emergent Contact Non-Emergency issues call your: Surgeon Call Non-Emergent contact if: temperature is above 101.5, your pain is not controlled, your pain is worsening, wound has increased drainage, wound has increased redness . "Provider Documentation" section prepared by Jonny Lopez. . VTE Core Measure Inpt VTE Proph given/why not?: Other Anticoagulation, T.E.D. Stockings, SCD's [place] Drug Monitoring Program Search Results: patient reviewed within database, see additional documentation Drug Monitoring Findings: Pt received Percocet Rx 12/04/16 for 15 day supply. (1 tab q6h prn). Percocet to be discontinued on discharge.
[2016-12-21 11:37] VITALS: BP 116/79; PULSE 93; TEMP 36.7; O2SAT 93
--- NOTE | 2016-12-21 18:26 | Progress Note ---
Internal Med Progress Note Date of Service: Dec 21, 2016. Provider Documentation: SUBJECTIVE: The patient was seen and examined Does nit feel great but denies any symptoms Denies any symptoms Ready to be discharged OBJECTIVE: Vital Signs-as noted below Exam: General-No distress at rest Eyes-normal ENT-normal Neck-supple Lungs-Minimal decrease in breath sound bilaterally Heart-Regular Abdomen-Benign,no masses,bowel sound present Extremities-NO edema Neuro-AAOx3 Lab data as noted below. ASSESSMENT & PLAN: S/P Left Shoulder Arthroplasty POD # 2 Management as per Ortho Remains stable following surgery Waiting to go home HTN, BP controlled Continue current medications No issues identified Asthma No acute attack No SOB on exertion Diabetes Hold Metformin SSI Check blood sugar ACHS Medically stable to be discharged Vital Signs: Date Time Temp Pulse Resp B/P (MAP) Pulse Ox O2 Delivery O2 Flow Rate FiO2 12/21/16 11:37 36.7 93 17 93 Room Air 12/21/16 09:50 Room Air 12/21/16 07:26 36.7 93 17 116/79 (91) 93 Room Air 12/20/16 23:15 Room Air 12/20/16 23:09 36.7 106 18 135/86 (102) 94 Room Air Lab Results: Results Past 24 Hours Test 12/21/16 06:40 12/21/16 08:01 12/21/16 12:13 Range/Units White Blood Count 6.22 4.8-10.8 K/uL Red Blood Count 3.67 4.2-5.4 M/uL Hemoglobin 11.4 12.0-16.0 g/dL Hematocrit 34.8 37-47 % Mean Corpuscular Volume 94.8 80-100 fL Mean Corpuscular Hemoglobin 31.1 25-34 pg Mean Corpuscular Hemoglobin Concent 32.8 32-36 g/dl RDW Standard Deviation 48.5 36.4-46.3 fL RDW Coefficient of Variation 13.9 11.5-14.5 % Platelet Count 206 130-400 K/uL Mean Platelet Volume 8.4 7.4-10.4 fL Sodium Level 136 136-145 mmol/L Potassium Level 4.2 3.5-5.1 mmol/L Chloride Level 103 98-107 mmol/L Carbon Dioxide Level 24 21-32 mmol/L Anion Gap 9.0 3-11 mmol/L Blood Urea Nitrogen 15 7-18 mg/dl Creatinine 0.88 0.60-1.20 mg/dl Est Creatinine Clear Calc Drug Dose 64.6 ml/min Estimated GFR () 78.8 Estimated GFR (Non- 68.0 BUN/Creatinine Ratio 17.4 10-20 Random Glucose 128 70-99 mg/dl Calcium Level 8.8 8.5-10.1 mg/dl Bedside Glucose 133 109 70-90 mg/dl
[2016-12-27] MEDS ORDERED: SNQ50 PO (10:19)
[2016-12-27] MEDS ORDERED: ULT50X PO (10:19)
[2016-12-27] MEDS ORDERED: AMB5 PO (10:19)
[2016-12-27] MEDS ORDERED: CZR50 PO (10:19)
[2017-01-20] MEDS ORDERED: LACT10CA3 PO (15:19)
[2017-01-20] MEDS ORDERED: CPR500 PO (15:19)
[2017-01-20] MEDS ORDERED: ATV1 PO (15:19)
[2017-01-20] MEDS ORDERED: TRAM-10 PO (15:19)
[2017-01-31] MEDS ORDERED: PEDI1CHW95 PO (10:51)
[2017-01-31] MEDS ORDERED: PRT/40 PO (15:52)
[2017-01-31] MEDS ORDERED: LOSA100T65 PO (15:52)
[2017-01-31] MEDS ORDERED: RGL/5 PO (15:52)
[2017-01-31] MEDS ORDERED: VNTHFA/IN INH (15:52)
[2017-01-31] MEDS ORDERED: ONDA-63 PO (15:52)
[2017-01-31] MEDS ORDERED: PLV75 PO (15:52)
[2017-01-31] MEDS ORDERED: TPRSR/25 PO (15:52)
[2017-01-31] MEDS ORDERED: SNQ/50 PO (15:52)
[2017-01-31] MEDS ORDERED: CYNI1000 IM (15:56)
[2017-01-31] MEDS ORDERED: FLUN0.02 NAE (17:48)
[2017-01-31] MEDS ORDERED: CYCL0.052 OPB (17:48)
[2017-01-31] MEDS ORDERED: BIOT10CA PO (17:48)
[2017-02-02] MEDS ORDERED: KFL250 PO (13:27)
== END 2016-12-21 12:25 | disposition home or self-care (01) | DRG 483 ==
LOC: C.ACU 09:18 → C.3E 16:04 → ENRESERV 16:59 → UNDODISIN 12-20 13:09
PROVIDERS: ADMIT Orthopaedic Surgery Sports Medicine; ATTEND Orthopaedic Surgery Sports Medicine
PROC: 0RRK0J7 Replacement of Left Shoulder Joint with Synthetic Substitute, Glenoid Surface, Open Approach (ICD-10-PCS; principal; 2016-12-19 11:00)
PROC: 0RPK0JZ Removal of Synthetic Substitute from Left Shoulder Joint, Open Approach (ICD-10-PCS; principal; 2016-12-19 11:00)
PROC: 3E0U029 Introduction of Other Anti-infective into Joints, Open Approach (ICD-10-PCS; principal; 2016-12-19 11:00)
DX: T84.038A Mechanical loosening of other internal prosthetic joint, initial encounter (principal); M65.812 Other synovitis and tenosynovitis, left shoulder; F41.9 Anxiety disorder, unspecified; J45.909 Unspecified asthma, uncomplicated; E78.5 Hyperlipidemia, unspecified; E66.01 Morbid (severe) obesity due to excess calories; E11.9 Type 2 diabetes mellitus without complications; K21.9 Gastro-esophageal reflux disease without esophagitis; I10 Essential (primary) hypertension; M54.5 Low back pain; G89.29 Other chronic pain; E89.2 Postprocedural hypoparathyroidism; Z68.33 Body mass index [BMI] 33.0-33.9, adult; Z79.01 Long term (current) use of anticoagulants; Z79.899 Other long term (current) drug therapy; Z91.048 Other nonmedicinal substance allergy status; Z88.5 Allergy status to narcotic agent; Z88.8 Allergy status to other drugs, medicaments and biological substances; Z88.6 Allergy status to analgesic agent; Z83.3 Family history of diabetes mellitus; Z83.79 Family history of other diseases of the digestive system; Z82.49 Family history of ischemic heart disease and other diseases of the circulatory system; Z98.84 Bariatric surgery status; Z90.49 Acquired absence of other specified parts of digestive tract; Z96.659 Presence of unspecified artificial knee joint; Y83.1 Surgical operation with implant of artificial internal device as the cause of abnormal reaction of the patient, or of later complication, without mention of misadventure at the time of the procedure

== ENCOUNTER 2016-12-25 10:49 | Observation (INO) | payer MEDICARE, OTHER ==
[~2016-12-25] VITALS: Ht 160 cm; Wt 91.0 kg
[~2016-12-25 10:49] MED LIST changes: -ACETAMINOPHEN 500 MG TAB PO SCH; -CEFAZOLIN 2000 MG/60 ML D5W 60 ML IV SCH; -DEXAMETHASONE 4 MG TAB PO SCH; -DEXAMETHASONE SOD INJ 4 MG/ML VIAL ONE; -FAMOTIDINE 20 MG TAB PO SCH; -FENTANYL CITRATE INJ 50 MCG/1 ML 2 ML VIAL ONE; -GABAPENTIN 300 MG CAP PO SCH; -GLYCOPYRROLATE INJ 0.2 MG/ML VIAL ONE; -LACTATED RINGER'S 1000ML 1,000 ML IV SCH; -LIDOCAINE HCL 2% 2 ML VIAL (20MG/ML) ONE; -METOCLOPRAMIDE HCL 10 MG TAB PO SCH; -MIDAZOLAM HCL 1 MG/ML 2ML VIAL ONE; -NEOSTIGMINE METHYLSULFATE 5 MG/5 ML SYR ONE; -ONDANSETRON INJ 2 MG/ML 2 ML VIAL ONE; -OXYC-57 PO; +OXYSR/20 PO; -PROPOFOL IV EMULSION 10 MG/ML 20 ML VIAL IV ONE; -ROCURONIUM BROMIDE 10 MG/ML 5 ML VIAL ONE; -ROPIVACAINE 0.5% 5 MG/ML 30 ML VIAL ONE; +RXC5 PO; -VANCOMYCIN INJ 1,300 MG in SODIUM CHLORIDE 0.9% 250ML 250 ML IV SCH
[2016-12-25] MEDS ORDERED: SODIUM CHLORIDE 0.9% 1000ML 1,000 ML IV SCH (11:13)
--- NOTE | 2016-12-25 11:18 | EMERGENCY ROOM VISIT NOTE ---
History First contact with patient: 11:07 Chief Complaint: CONFUSION Stated Complaint: SURG. THURSDAY, NO APPETITE, CONFUSION, WEAKNESS Nursing Triage Summary: Pt states he reese pt home Thursday, pt has confusion, no appetite, not drinking. Stopped giving her pain meds last night at 1030 but no improvement this am. Pt states date January 29, 2017. Neha president. Alert to name and . Believes she is in [facility]. History of Present Illness The patient is a 66 year old female who presents to the Emergency Room via private vehicle accompanied by her with complaints of "confusion". The patient and state that she recently had surgery this past Thursday performed by Dr. Funes on her left shoulder. The patient had been doing well since the surgery until Thursday, when she developed confusion, weakness in the left arm and bilateral legs. The also believes that she has some short- term memory loss. Thursday she seemed to feel better, and she was able to eat dinner, however since then her symptoms have persisted and she has had very little to eat or drink since that time. There is increased urinary frequency. The thought this could be from the pain meds, therefore stopped them at 10:30 pm yesterday evening, and when she awoke this morning her symptoms were persistent and therefore brought her here for further evaluation and management. The patient denies any history of stroke. Review of Systems A complete 10-point Review of Systems was discussed with the patient, with pertinent positives and negatives listed in the History of Present Illness. All remaining Review of Systems questions can be considered negative unless otherwise specified. Past Medical/Surgical History Medical Problems: (1) Anxiety (2) Asthma (3) C. difficile diarrhea (4) DM2 (diabetes mellitus, type 2) (5) GERD (gastroesophageal reflux disease) (6) Hyperlipidemia (7) Hypertension (8) Morbid obesity (9) Sacral back pain (10) Shoulder pain Surgical Problems: (1) H/O gastric bypass (2) H/O hernia repair (3) H/O spinal fusion (4) History of carpal tunnel surgery (5) Previous section (6) S/P appendectomy (7) S/P cholecystectomy (8) S/p left shoulder surgery (9) S/P parathyroidectomy (10) S/P tonsillectomy and adenoidectomy (11) Total knee replacement status Family History Diabetes mellitus Gallbladder disease Heart disease Hypertension Social History Smoking Status: Never Smoker Alcohol Use: none Drug Use: none Marital Status: Housing Status: lives with significant other Current/Historical Medications Scheduled Biotin (Cvs Biotin), 10 MG PO QAM Cholecalciferol (D 1000), 1 CAP PO TID Clopidogrel (Plavix), 75 MG PO QAM Cyclosporine (Ophth) (Restasis), 1 DROPS OP BID Doxepin (Sinequan), 75 MG PO QAM Doxepin (Sinequan), 150 MG PO HS Ergocalciferol (Vitamin D), 50,000 INTER.UNIT PO 3XWK Metoclopramide (Reglan), 10 MG PO AC Metoprolol Succ (Toprol Xl) (Toprol-Xl), 12.5 MG PO QAM Pantoprazole (Protonix), 40 MG PO QAM Pediatric Multiple Vitamin W/ (Multivitamin Gummies Chil), 1 TAB PO QAM Scheduled PRN Albuterol (Ventolin Hfa), 2 PUFFS INH Q4 PRN for SOB/Wheezing Flunisolide (Nasal) (Flunisolide), 2 SPRY SALOMÓN DAILY PRN for allergies Lorazepam (Lorazepam), 1 MG PO QAM PRN for PRN Oxycodone HCl (Oxycodone HCl), 5-10 MG PO Q4H PRN for Pain Promethazine Hcl (Phenergan), 25 MG PO Q6H PRN for Nausea Allergies Coded Allergies: Atorvastatin (Verified Allergy, Unknown, myalgias per PCP note , 12/25/16) Rosuvastatin (Unverified Allergy, Unknown, MUSCLE ACHES, 12/25/16) CI Pigment Blue 63 (Verified Adverse Reaction, Mild, PSYCHOSIS, 12/25/16) Duloxetine (Verified Adverse Reaction, Mild, PSYCHOSIS, 12/25/16) Gabapentin (Verified Adverse Reaction, Mild, PSYCHOSIS, 12/25/16) Morphine (Verified Adverse Reaction, Mild, NAUSEA, 12/25/16) NSAIDs (Verified Adverse Reaction, Unknown, s/p bariatric surgery, 12/25/16) per gmg Physical Exam Vital Signs Date Time Temp Pulse Resp B/P (MAP) Pulse Ox O2 Delivery O2 Flow Rate FiO2 12/25/16 14:42 90 16 141/97 96 Room Air 12/25/16 12:35 83 16 125/84 93 Room Air 12/25/16 12:06 96 12/25/16 11:44 Room Air 12/25/16 10:56 37.1 110 20 111/78 93 Room Air Physical Exam VITAL SIGNS - Vital signs and nursing notes were reviewed. Patient is afebrile , normotensive, tachycardic at a rate of 110 bpm, and is saturating on room air 93%. GENERAL -66-year-old female appearing her stated age who is in no acute distress. Communicates well with provider and answers questions appropriately. SKIN - Without rashes. The incision overlying the left anterior shoulder is closed with yuridia and appears to be healing well. No evidence of infection in this region. There is no drainage. HEAD - NC/AT. EYES - PERRL with EOMI bilaterally. Sclera anicteric. Palpebral conjunctiva pink and moist with no injection noted. EARS - No deformities of external structures noted on gross examination bilaterally. No pain elicited with palpation of the tragus bilaterally. External auditory canals without discharge or otorrhea. Tympanic membranes pearly medrano without retraction or bulging. No fluid or purulent material visualized behind the TM. Handle of malleus, umbo, cone of light, pars tensa/ flaccid all easily visualized. NOSE - Midline and without cyanosis. No epistaxis or purulent drainage noted. Septum midline without deviation or septal hematoma noted. MOUTH/OROPHARYNX - Without perioral cyanosis. Buccal mucosa pink and slightly moist and without leukoplakia. Tongue midline with equal elevation of palate bilaterally. No tonsillar hypertrophy, erythema, or exudates noted. Fair dentition noted. NECK - Neck with FROM. Supple to palpation. No lymphadenopathy noted. No nuchal rigidity. No meningismus. LUNGS - Chest wall symmetric without accessory muscle use, intercostals retractions, or central cyanosis. Normal vesicular breath sounds CTA B/L. there are some wheezes bilaterally but no rales, or rhonchi appreciated. CARDIAC - RRR with S1/S2. No murmur, rubs, or gallops appreciated. EXTREMITIES - No clubbing or peripheral cyanosis. No pretibial edema present. There are no neurovascular deficits appreciated in the extremities. +5/5 strength noted in UE/LE bilaterally. NEUROLOGIC - Cranial nerves II through XII grossly intact. Sensory intact to light touch throughout. Patellar reflexes +2/4. PSYCH - patient is only partially alert and oriented. She is unsure the date and which hospital she is at. Pt is very pleasant and interacts well with examiner. Medical Decision & Procedures ER Provider Diagnostic Interpretation: CHEST ONE VIEW PORTABLE HISTORY:66 yearsFemalePost operative confusion COMPARISON: Chest radiograph 12/19/2016. TECHNIQUE: Portable upright AP view of the chest. FINDINGS: The cardiac silhouette is upper limits of normal. There is atherosclerosis of the aorta with tortuosity of the descending thoracic aorta, unchanged. No pneumothorax, pleural effusion or focal airspace consolidation. There is no overt pulmonary edema. Degenerative changes are present within the right shoulder. Left shoulder arthroplasty in place.] Berto and screw fixation hardware involves the thoracolumbar spine, only partially imaged. IMPRESSION: 1. No acute cardiopulmonary process. 2. Resolution of the previously described left basilar opacity. The above report was generated using voice recognition software. It may contain grammatical, syntax or spelling errors. Electronically signed by: Missael Moore 12/25/2016 12:01 PM Dictated Date/Time: 12/25/2016 11:[address] OF THE HEAD WITHOUT CONTRAST CLINICAL HISTORY: Stroke. Confusion. Weakness. COMPARISON STUDY: Head CT October 02, 2016. CT DOSE: 537.48 mGy.cm TECHNIQUE: Helical axial images of the head were obtained without IV contrast. Automated exposure control was utilized for the study. FINDINGS: No acute intracranial hemorrhage, midline shift or mass effect is present. Ventricular system is stable. Basilar cisterns are patent. There are no extra-axial collections. Scattered white matter hypodensity suggests small vessel disease. There are no findings to suggest acute dural sinus thrombosis or acute territorial infarct. There are no significant calvarial abnormalities. There are postsurgical findings within the sinuses. IMPRESSION: No acute intracranial findings. Electronically signed by: Everardo De La Torre M.D. 12/25/2016 12:36 PM Dictated Date/Time: 12/25/2016 12:25 PM Laboratory Results 12/25/16 11:58 Red Blood Count 3.84, Mean Corpuscular Volume 94.5, Mean Corpuscular Hemoglobin 31.0, Mean Corpuscular Hemoglobin Concent 32.8, Mean Platelet Volume 8.5, Neutrophils (%) (Auto) 67.0, Lymphocytes (%) (Auto) 17.6, Monocytes (%) (Auto) 12.0, Eosinophils (%) (Auto) 2.7, Basophils (%) (Auto) 0.0, Neutrophils # (Auto ) 2.75, Lymphocytes # (Auto) 0.72, Monocytes # (Auto) 0.49, Eosinophils # (Auto ) 0.11, Basophils # (Auto) 0.00 12/25/16 11:58 Test 12/25/16 11:55 12/25/16 11:58 12/25/16 13:17 Bedside Glucose 140 mg/dl (70-90) White Blood Count 4.10 K/uL (4.8-10.8) Red Blood Count 3.84 M/uL (4.2-5.4) Hemoglobin 11.9 g/dL (12.0-16.0) Hematocrit 36.3 % (37-47) Mean Corpuscular Volume 94.5 fL (80-100) Mean Corpuscular Hemoglobin 31.0 pg (25-34) Mean Corpuscular Hemoglobin Concent 32.8 g/dl (32-36) Platelet Count 288 K/uL (130-400) Mean Platelet Volume 8.5 fL (7.4-10.4) Neutrophils (%) (Auto) 67.0 % Lymphocytes (%) (Auto) 17.6 % Monocytes (%) (Auto) 12.0 % Eosinophils (%) (Auto) 2.7 % Basophils (%) (Auto) 0.0 % Neutrophils # (Auto) 2.75 K/uL (1.4-6.5) Lymphocytes # (Auto) 0.72 K/uL (1.2-3.4) Monocytes # (Auto) 0.49 K/uL (0.11-0.59) Eosinophils # (Auto) 0.11 K/uL (0-0.5) Basophils # (Auto) 0.00 K/uL (0-0.2) RDW Standard Deviation 46.9 fL (36.4-46.3) RDW Coefficient of Variation 13.6 % (11.5-14.5) Immature Granulocyte % (Auto) 0.7 % Immature Granulocyte # (Auto) 0.03 K/uL (0.00-0.02) Prothrombin Time 10.6 SECONDS (9.0-12.0) Prothromb Time International Ratio 1.0 (0.9-1.1) Activated Partial Thromboplast Time 25.5 SECONDS (21.0-31.0) Partial Thromboplastin Ratio 1.0 Anion Gap 11.0 mmol/L (3-11) Est Creatinine Clear Calc Drug Dose 86.0 ml/min Estimated GFR () 104.9 Estimated GFR (Non- 90.5 BUN/Creatinine Ratio 14.1 (10-20) Lactic Acid Level 0.8 mmol/L (0.4-2.0) Calcium Level 9.0 mg/dl (8.5-10.1) Total Creatine Kinase 60 U/L (26-192) Creatine Kinase MB 0.6 ng/ml (0.5-3.6) Creatine Kinase MB Ratio 1.0 (0-3.0) Troponin I < 0.015 ng/ml (0-0.045) Urine Color YELLOW Urine Appearance CLEAR (CLEAR) Urine pH 5.5 (4.5-7.5) Urine Specific [place] 1.020 (1.000-1.030) Urine Protein NEG (NEG) Urine Glucose (UA) NEG (NEG) Urine Ketones TRACE (NEG) Urine Occult Blood NEG (NEG) Urine Nitrite NEG (NEG) Urine Bilirubin NEG (NEG) Urine Urobilinogen NEG (NEG) Urine Leukocyte Esterase NEG (NEG) Urine Opiates Screen POS (NEG) Urine Methadone, Qualitative NEG (NEG) Urine Barbiturates NEG (NEG) Urine Phencyclidine (PCP) Level NEG (NEG) Ur Amphetamine/Methamphetamine NEG (NEG) MDMA (Ecstasy) Screen NEG (NEG) Urine Benzodiazepines Screen NEG (NEG) Urine Cocaine Metabolite NEG (NEG) Urine Marijuana (THC) NEG (NEG) Medications Administered Medications (Trade) Dose Ordered Sig/Valente Route Start Time Stop Time Status Last Admin Dose Admin Sodium Chloride 1,000 ml @ 50 mls/hr Q20H IV 12/25/16 11:13 01/24/17 11:12 12/25/16 12:33 50 MLS/HR Fentanyl Citrate (Fentanyl Inj) 50 mcg NOW STAT IV 12/25/16 14:33 12/25/16 14:34 DC 12/25/16 14:42 50 MCG Medical Decision Patient was seen and evaluated as above. After thorough history and physical examination IV access was initiated and the above workup was performed. Patient presents to us today with confusion, weakness, decreased appetite, increased urinary frequency, decreased fluid intake and short-term memory loss over the past few days. The patient recently had a surgery on this past Thursday. Her workup here today reveals CT scan with age-related change, chest x- ray actually improved from previous. EKG was compared to October 02 in no significant change was found. She persists to be confused here in the emergency department, and the exact etiology is unclear. I do not suspect acute stroke. CBC reveals a decreased white blood cell count and hemoglobin 11.9. Coagulation panel unremarkable. CMP reveals creatinine of 0.68, no evidence of liver or kidney failure. Troponin is negative. Urine reveals trace ketones, otherwise negative. Tox screen is positive for opiates, otherwise negative. I would expect opiates to be positive as she is prescribed this in the past. The patient is likely experiencing confusion secondary to recent narcotic medication usage, however given her presentation, I do believe that staying in the hospital is warranted. The case was discussed with my attending, who also evaluated the patient. She was given 50 g of fentanyl for her pain. A left shoulder x-ray has also been ordered. Hospitalist was consult , was referred further documentation regarding her stay. In evaluation treatment this patient following differential diagnoses were entertained: Polypharmacy, medication induced confusion, sepsis, pneumonia, UTI , among others. Impression Primary Impression: Confusion Additional Impression: Anemia Departure Information Dispostion Admitted as an inpatient Condition FAIR Referrals Conrad Mckeon D.O. (PCP) Patient Instructions [facility] Problem Qualifiers
--- NOTE | 2016-12-25 12:03 | DIAGNOSTIC IMAGING REPORT ---
CHEST ONE VIEW PORTABLE HISTORY:66 yearsFemalePost operative confusion COMPARISON: Chest radiograph 12/19/2016. TECHNIQUE: Portable upright AP view of the chest. FINDINGS: The cardiac silhouette is upper limits of normal. There is atherosclerosis of the aorta with tortuosity of the descending thoracic aorta, unchanged. No pneumothorax, pleural effusion or focal airspace consolidation. There is no overt pulmonary edema. Degenerative changes are present within the right shoulder. Left shoulder arthroplasty in place.] Berto and screw fixation hardware involves the thoracolumbar spine, only partially imaged. IMPRESSION: 1. No acute cardiopulmonary process. 2. Resolution of the previously described left basilar opacity. The above report was generated using voice recognition software. It may contain grammatical, syntax or spelling errors. Electronically signed by: Missael Moore 12/25/2016 12:01 PM Dictated Date/Time: 12/25/2016 11:58 AM
[2016-12-25 12:20] LABS: COMPLETE YES; EOS % 2.7 %; HEMATOCRIT 36.3 % (37-47); IG% 0.7 %; LYMPH % 17.6 %; LYMPH ABS # 0.72 K/uL (1.2-3.4); MEAN CELL VOLUME 94.5 fL (80-100); MEAN CORPUSCULAR HGB CONC 32.8 g/dl (32-36); MEAN PLATELET VOLUME 8.5 fL (7.4-10.4); PLATELET COUNT 288 K/uL (130-400); RED BLOOD COUNT 3.84 M/uL (4.2-5.4)
--- NOTE | 2016-12-25 12:38 | DIAGNOSTIC IMAGING REPORT ---
CT OF THE HEAD WITHOUT CONTRAST CLINICAL HISTORY: Stroke. Confusion. Weakness. COMPARISON STUDY: Head CT October 02, 2016. CT DOSE: 537.48 mGy.cm TECHNIQUE: Helical axial images of the head were obtained without IV contrast. Automated exposure control was utilized for the study. FINDINGS: No acute intracranial hemorrhage, midline shift or mass effect is present. Ventricular system is stable. Basilar cisterns are patent. There are no extra-axial collections. Scattered white matter hypodensity suggests small vessel disease. There are no findings to suggest acute dural sinus thrombosis or acute territorial infarct. There are no significant calvarial abnormalities. There are postsurgical findings within the sinuses. IMPRESSION: No acute intracranial findings. Electronically signed by: Everardo De La Torre M.D. 12/25/2016 12:36 PM Dictated Date/Time: 12/25/2016 12:25 PM
[2016-12-25 12:45] LABS: PROTHROMBIN TIME (PATIENT) 10.6 SECONDS (9.0-12.0)
[2016-12-25 13:02] LABS: BLOOD UREA NITROGEN 10 mg/dl (7-18); BUN/CREATININE RATIO 14.1 (10-20); CARBON DIOXIDE 24 mmol/L (21-32); CHLORIDE 103 mmol/L (98-107); CREATININE 0.68 mg/dl (0.60-1.20); GLUCOSE 129 mg/dl (70-99); POTASSIUM 3.6 mmol/L (3.5-5.1); SODIUM 138 mmol/L (136-145)
[2016-12-25 13:45] LABS: URINE APPEARANCE CLEAR (CLEAR); URINE BILIRUBIN NEG (NEG); URINE COLOR YELLOW; URINE NITRITE NEG (NEG); URINE PH 5.5 (4.5-7.5); UROBILINOGEN NEG (NEG); ZZURINE CULT IF INDIC CATH NO
[2016-12-25 13:46] LABS: MANUAL MICROSCOPIC REQUIRED? NO; REVIEW REQ? NO
[2016-12-25 14:15] LABS: BENZODIAZEPINE, URINE NEG (NEG); COCAINE,URINE NEG (NEG); PHENCYCLIDINE, URINE NEG (NEG)
--- NOTE | 2016-12-25 14:29 | EMERGENCY ROOM VISIT NOTE ---
ED Visit Note First contact with patient: 11:07 Patient was seen by our PA/MEASUREMENT SUPERINTENDENT. I was involved in the patient's care and did evaluate the patient myself. I was involved in the care throughout the ER stay. The patient presents with a change in mental status. Workup here is relatively benign. Brain CT is unremarkable. No signs of infection. Blood testing is basically unremarkable. Her mental status change may be from medications. Given the mentation issue, admission/observation is warranted.
[2016-12-25] MEDS ORDERED: FENTANYL CITRATE INJ 50 MCG/1 ML 2 ML VIAL IV STA (14:33)
[2016-12-25] MEDS ORDERED: ONDANSETRON INJ 2 MG/ML 2 ML VIAL IV PRN (15:15)
--- NOTE | 2016-12-25 15:22 | DIAGNOSTIC IMAGING REPORT ---
LEFT SHOULDER MIN 2 VIEWS ROUTINE CLINICAL HISTORY: Left shoulder pain s/p surgery pain COMPARISON: 12/19/2016 DISCUSSION: Anatomic alignment status post left shoulder replacement. Expected soft tissue postoperative change. No acute process. IMPRESSION: Unremarkable postoperative left shoulder. Electronically signed by: Alonso Rivera M.D. 12/25/2016 3:20 PM Dictated Date/Time: 12/25/2016 3:19 PM
[2016-12-25] MEDS ORDERED: DEXTROSE 50% 50 ML SYR IV PRN (15:30)
[2016-12-25] MEDS ORDERED: GLUCAGON FOR INJ 1 MG VIAL SQ PRN (15:30)
[2016-12-25] MEDS ORDERED: ALBUTEROL HFA 8 GM INHALER INH PRN (15:30)
[2016-12-25] MEDS ORDERED: GLUCOSE 10 TABS/TUBE PO PRN (15:30)
[2016-12-25] MEDS ORDERED: GLUCOSE 40% GEL 15 GM TUBE PO PRN (15:30)
[2016-12-25] MEDS ORDERED: IV FLUIDS COMPLETED PRN (15:45)
--- NOTE | 2016-12-25 16:01 | History and Physical ---
History & Physical Date & Time of Service: Dec 25, 2016 at 15:33 Chief Complaint: Surg. Thursday, No Appetite, Confusion, Weakness Primary Care Physician: Conrad Mckeon D.O. History of Present Illness Patient is a 66 yr female with PMH of HTN, DM II (Diet controlled since bariatric surgery), GERD, TIA, Peripheral neuropathy and other problems presents with history of intermittent confusion, decreased appetite, nausea, generalized body ache and has been having issues with ambulation since having left shoulder surgery by Dr. Funes one week ago. Her reports that she had some transient slurring of speech after taking pain medications yesterday and also has been having some memory issues since surgery. She also states she has developed a dry cough and has some burning micturition and increased frequency yesterday. Reports her left shoulder hurts and has decreased mobility and was supposed to use a sling for 6 weeks. Her thought that the confusion is secondary to pain meds and has not given any pain meds since yesterday evening. She is currently oriented X3, and denies any history of chest pain, SOB, headache, dizziness, fever, chills, abdominal pain, diarrhea, slurred speech, facial deformity, weakness/numbness in extremities, blurry vision. Past Medical/Surgical History Medical Problems: (1) Anxiety Status: Chronic (2) Asthma Status: Chronic (3) C. difficile diarrhea Status: Resolved (4) DM2 (diabetes mellitus, type 2) Status: Chronic (5) GERD (gastroesophageal reflux disease) Status: Chronic (6) Hyperlipidemia Status: Chronic (7) Hypertension Status: Chronic (8) Morbid obesity Status: Chronic (9) Sacral back pain Status: Chronic Surgical Problems: (1) H/O gastric bypass Status: Chronic (2) H/O hernia repair Status: Chronic (3) H/O spinal fusion Status: Chronic (4) History of carpal tunnel surgery Status: Chronic (5) Previous section Status: Resolved (6) S/P appendectomy Status: Chronic (7) S/P cholecystectomy Status: Resolved (8) S/p left shoulder surgery Status: Chronic (9) S/P parathyroidectomy Status: Resolved (10) S/P tonsillectomy and adenoidectomy Status: Chronic (11) Total knee replacement status Status: Resolved Family History Diabetes mellitus Gallbladder disease Heart disease Hypertension Not contributory Social History Smoking Status: Never Smoker Alcohol Use: socially Drug Use: none Marital Status: Housing status: lives with significant other Immunizations History of Influenza Vaccine: Yes Influenza Vaccine Date: Apr 18, 2013 History of Tetanus Vaccine?: Yes History of Pneumococcal: Yes History of Hepatitis B Vaccine: Yes Multi-Drug Resistant Organisms History of MDRO: No Allergies Coded Allergies: Atorvastatin (Verified Allergy, Unknown, myalgias per PCP note , 12/25/16) Rosuvastatin (Unverified Allergy, Unknown, MUSCLE ACHES, 12/25/16) CI Pigment Blue 63 (Verified Adverse Reaction, Mild, PSYCHOSIS, 12/25/16) Duloxetine (Verified Adverse Reaction, Mild, PSYCHOSIS, 12/25/16) Gabapentin (Verified Adverse Reaction, Mild, PSYCHOSIS, 12/25/16) Morphine (Verified Adverse Reaction, Mild, NAUSEA, 12/25/16) NSAIDs (Verified Adverse Reaction, Unknown, s/p bariatric surgery, 12/25/16) per gmg Home Medications Scheduled Biotin ([facility] Biotin), 10 MG PO QAM Cholecalciferol (D 1000), 1 CAP PO TID Clopidogrel (Plavix), 75 MG PO QAM Cyclosporine (Ophth) (Restasis), 1 DROPS OP BID Doxepin (Sinequan), 75 MG PO QAM Doxepin (Sinequan), 150 MG PO HS Ergocalciferol (Vitamin D), 50,000 INTER.UNIT PO 3XWK Metoclopramide (Reglan), 10 MG PO AC Metoprolol Succ (Toprol Xl) (Toprol-Xl), 12.5 MG PO QAM Pantoprazole (Protonix), 40 MG PO QAM Pediatric Multiple Vitamin W/ (Multivitamin Gummies Chil), 1 TAB PO QAM Scheduled PRN Albuterol (Ventolin Hfa), 2 PUFFS INH Q4 PRN for SOB/Wheezing Flunisolide (Nasal) (Flunisolide), 2 SPRY SALOMÓN DAILY PRN for allergies Lorazepam (Lorazepam), 1 MG PO QAM PRN for PRN Oxycodone HCl (Oxycodone HCl), 5-10 MG PO Q4H PRN for Pain Promethazine Hcl (Phenergan), 25 MG PO Q6H PRN for Nausea Review of Systems See HPI for pertinent positives & negatives. A total of 10 systems reviewed and were otherwise negative. Physical Exam Vital Signs Date Time Temp Pulse Resp B/P (MAP) Pulse Ox O2 Delivery O2 Flow Rate FiO2 12/25/16 14:42 90 16 141/97 96 Room Air 12/25/16 12:35 83 16 125/84 93 Room Air 12/25/16 12:06 96 12/25/16 11:44 Room Air 12/25/16 10:56 37.1 110 20 111/78 93 Room Air General Appearance: WD/WN, no apparent distress Head: normocephalic, atraumatic Eyes: normal inspection, PERRL, EOMI, sclerae normal ENT: normal ENT inspection, hearing grossly normal Neck: supple, trachea midline Respiratory/Chest: chest non-tender, lungs clear, normal breath sounds, no respiratory distress, no accessory muscle use Cardiovascular: regular rate, rhythm, no edema, no murmur Abdomen/GI: normal bowel sounds, non tender, soft Back: normal inspection Extremities/Musculoskelatal: normal inspection, no pedal edema, + pertinent finding (Left shoulder has surgical yuridia. 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 nml as tested, no motor/sensory deficits, alert, normal mood/affect, oriented x 3 Skin: normal color, warm/dry Diagnostics Laboratory Results Results Past 24 Hours Test 12/25/16 11:55 12/25/16 11:58 12/25/16 13:17 Range/Units Bedside Glucose 140 70-90 mg/dl White Blood Count 4.10 4.8-10.8 K/uL Red Blood Count 3.84 4.2-5.4 M/uL Hemoglobin 11.9 12.0-16.0 g/dL Hematocrit 36.3 37-47 % Mean Corpuscular Volume 94.5 80-100 fL Mean Corpuscular Hemoglobin 31.0 25-34 pg Mean Corpuscular Hemoglobin Concent 32.8 32-36 g/dl Platelet Count 288 130-400 K/uL Mean Platelet Volume 8.5 7.4-10.4 fL Neutrophils (%) (Auto) 67.0 % Lymphocytes (%) (Auto) 17.6 % Monocytes (%) (Auto) 12.0 % Eosinophils (%) (Auto) 2.7 % Basophils (%) (Auto) 0.0 % Neutrophils # (Auto) 2.75 1.4-6.5 K/uL Lymphocytes # (Auto) 0.72 1.2-3.4 K/uL Monocytes # (Auto) 0.49 0.11-0.59 K/uL Eosinophils # (Auto) 0.11 0-0.5 K/uL Basophils # (Auto) 0.00 0-0.2 K/uL RDW Standard Deviation 46.9 36.4-46.3 fL RDW Coefficient of Variation 13.6 11.5-14.5 % Immature Granulocyte % (Auto) 0.7 % Immature Granulocyte # (Auto) 0.03 0.00-0.02 K/uL Prothrombin Time 10.6 9.0-12.0 SECONDS Prothromb Time International Ratio 1.0 0.9-1.1 Activated Partial Thromboplast Time 25.5 21.0-31.0 SECONDS Partial Thromboplastin Ratio 1.0 Sodium Level 138 136-145 mmol/L Potassium Level 3.6 3.5-5.1 mmol/L Chloride Level 103 98-107 mmol/L Carbon Dioxide Level 24 21-32 mmol/L Anion Gap 11.0 3-11 mmol/L Blood Urea Nitrogen 10 7-18 mg/dl Creatinine 0.68 0.60-1.20 mg/dl Est Creatinine Clear Calc Drug Dose 86.0 ml/min Estimated GFR () 104.9 Estimated GFR (Non- 90.5 BUN/Creatinine Ratio 14.1 10-20 Random Glucose 129 70-99 mg/dl Lactic Acid Level 0.8 0.4-2.0 mmol/L Calcium Level 9.0 8.5-10.1 mg/dl Total Creatine Kinase 60 26-192 U/L Creatine Kinase MB 0.6 0.5-3.6 ng/ml Creatine Kinase MB Ratio 1.0 0-3.0 Troponin I < 0.015 0-0.045 ng/ml Urine Color YELLOW Urine Appearance CLEAR CLEAR Urine pH 5.5 4.5-7.5 Urine Specific [place] 1.020 1.000-1.030 Urine Protein NEG NEG Urine Glucose (UA) NEG NEG Urine Ketones TRACE NEG Urine Occult Blood NEG NEG Urine Nitrite NEG NEG Urine Bilirubin NEG NEG Urine Urobilinogen NEG NEG Urine Leukocyte Esterase NEG NEG Urine Opiates Screen POS NEG Urine Methadone, Qualitative NEG NEG Urine Barbiturates NEG NEG Urine Phencyclidine (PCP) Level NEG NEG Ur Amphetamine/Methamphetamine NEG NEG MDMA (Ecstasy) Screen NEG NEG Urine Benzodiazepines Screen NEG NEG Urine Cocaine Metabolite NEG NEG Urine Marijuana (THC) NEG NEG Microbiology Results 12/25/16 Blood Culture, Received Pending 12/25/16 Blood Culture, Received Pending Diagnostic Radiology CT head: No acute intracranial findings. CXR: 1. No acute cardiopulmonary process. 2. Resolution of the previously described left basilar opacity. EKG EKG: Normal sinus rhythm, No ST-T wave changes Impression Assessment and Plan Altered Mental Status: Presented with intermittent confusion. No focal deficits on exam, currently oriented X 3 Likely secondary to pain medications. Also on Ativan, Doxepin at home Tox screen is negative (Positive only for opiates- On Oxycodone for pain control ) CT head: no acute pathology UA: negative for UTI Will decrease Lorazepam from 1mg daily to 0.5 mg daily Will decrease Doxepin to 50mg BID (Takes 75mg BID at home) Will Hold Oxycodone Patient prefers not to get MRI brain Neuro checks DM II: Diet controlled since bariatric surgery Last A1C:6.3 Will start ISS, Accu checks HTN: Stable Continue home meds GERD: Continue Protonix H/O TIA: Continue plavix H/O P.SVT: Continue BB B/L Leg pain: Complains of B/L leg pain since surgery Will get Venous Doppler to R/O DVT Recent Left Shoulder surgery: No signs of infection Will get X ray of shoulder DVT Px: Lovenox SQ Code Status: Full code VTE Prophylaxis VTE Risk Assessment Done? Y/N: Yes Risk Level: Low
--- NOTE | 2016-12-25 16:47 | DIAGNOSTIC IMAGING REPORT ---
BILATERAL LOWER EXTREMITY VENOUS DOPPLER CLINICAL HISTORY: Confusion. Recent surgery. COMPARISON STUDY: Left lower extremity venous Doppler June 20, 2010. TECHNIQUE: Sonography of the deep venous system of the bilateral lower extremities was performed. Compression and augmentation were evaluated. FINDINGS: The bilateral common femoral, superficial femoral and popliteal veins were compressible. Augmentation was normal. Flow was shown within the deep calf vessels. IMPRESSION: No evidence of deep venous thrombus within the bilateral lower extremities. Electronically signed by: Everardo De La Torre M.D. 12/25/2016 4:45 PM Dictated Date/Time: 12/25/2016 4:45 PM
[2016-12-25 17:00] VITALS: BP 131/95; PULSE 103; TEMP 37.2; O2SAT 98; Ht 160 cm; Wt 91.0 kg
[2016-12-25] MEDS ORDERED: SODIUM CHLORIDE 0.9% 1000ML 1,000 ML IV ONE (17:00)
[2016-12-25] MEDS: INSULIN ASPART 100 UNITS/ML 3 ML PEN SC SCH ×2 (17:15→21:00)
[2016-12-25] MEDS: ACETAMINOPHEN 325 MG TAB PO PRN (18:22)
[2016-12-25] MEDS: ENOXAPARIN 40 MG/0.4 ML SYR SQ SCH (19:04)
[2016-12-25] MEDS ORDERED: TRAMADOL HCL 50 MG TAB PO STA (20:14)
[2016-12-25] MEDS: DOXEPIN HCL 50 MG CAP PO SCH (21:27)
[2016-12-25] MEDS: LOSARTAN POTASSIUM 50 MG TAB PO SCH (21:28)
[2016-12-25 23:00] VITALS: BP 134/85; PULSE 91; TEMP 36.8; O2SAT 93
[2016-12-26] MEDS: ACETAMINOPHEN 325 MG TAB PO PRN ×3 (00:12→15:41)
[2016-12-26] MEDS ORDERED: TRAMADOL HCL 50 MG TAB PO PRN (01:00)
[2016-12-26] MEDS ORDERED: NURSING VERBAL MED ORDER ONE ×2 (01:00)
[2016-12-26 07:05] LABS: BASO % 0.3 %; BASO ABS # 0.01 K/uL (0-0.2); COMPLETE YES; EOS % 4.3 %; HEMATOCRIT 32.4 % (37-47); IG% 0.8 %; MEAN CELL VOLUME 94.7 fL (80-100); MEAN CORPUSCULAR HEMOGLOBIN 32.2 pg (25-34); MEAN PLATELET VOLUME 8.4 fL (7.4-10.4); MONO % 12.5 %; NEUT % 54.1 %; PLATELET COUNT 246 K/uL (130-400); RED BLOOD COUNT 3.42 M/uL (4.2-5.4); WHITE BLOOD COUNT 3.93 K/uL (4.8-10.8)
[2016-12-26 07:38] LABS: BUN/CREATININE RATIO 13.1 (10-20); CALCIUM 8.3 mg/dl (8.5-10.1); CREATININE 0.48 mg/dl (0.60-1.20); POTASSIUM 3.5 mmol/L (3.5-5.1)
[2016-12-26 07:54] VITALS: BP 143/85; PULSE 82; TEMP 36.9; O2SAT 94
[2016-12-26] MEDS ORDERED: TRAMADOL HCL 50 MG TAB ONE (08:20)
[2016-12-26] MEDS: CLOPIDOGREL BISULFATE 75 MG TAB PO SCH (08:31)
[2016-12-26] MEDS: LOSARTAN POTASSIUM 50 MG TAB PO SCH ×2 (08:31→20:40)
[2016-12-26] MEDS: LORAZEPAM 0.5 MG TAB PO SCH (08:31)
[2016-12-26] MEDS: PANTOprazole SOD 40 MG TAB PO SCH (08:32)
[2016-12-26] MEDS: DOXEPIN HCL 50 MG CAP PO SCH ×2 (08:32→20:40)
[2016-12-26] MEDS: THIAMINE HCL 100 MG TAB PO SCH (08:33)
[2016-12-26] MEDS: METOPROLOL SUCC 25MG EXT REL TAB PO SCH (08:33)
[2016-12-26] MEDS: CHOLECALCIFEROL 1000 INTER.UNIT TAB PO SCH (08:33)
[2016-12-26 09:05] VITALS: O2SAT 94
[2016-12-26] MEDS: TRAMADOL HCL 50 MG TAB PO PRN ×2 (13:51→20:39)
[2016-12-26 15:05] VITALS: BP 122/80; PULSE 85; TEMP 36.9; O2SAT 93
--- NOTE | 2016-12-26 17:43 | Progress Note ---
Internal Med Progress Note Date of Service: Dec 26, 2016. Provider Documentation: SUBJECTIVE: Patient is alert/awake, sitting in the chair and is in no apparent distress. Answers my questions appropriately. No SOB and denies any nausea/vomiting. OBJECTIVE: Vital Signs-as noted below Examination: General Appearance: Awake/Alert, WD/WN, In no apparent distress Head: normocephalic, atraumatic Eyes: normal inspection, PERRL, EOMI, sclerae normal ENT: normal ENT inspection, hearing grossly normal. Ears, Nose & Throat are normal looking. Neck: Supple, trachea midline, No JVD. Respiratory/Chest: chest non-tender, lungs clear, normal breath sounds, no respiratory distress, no accessory muscle use Cardiovascular: regular rate, rhythm, no edema, no murmur Abdomen/GI: normal bowel sounds, non tender, soft Back: normal inspection Extremities/Musculoskelatal: normal inspection, no pedal edema, Left shoulder has surgical yuridia. No erythema, no drainage. 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 ASSESSMENT & PLAN: Altered Mental Status:Clinically improving. Presented with intermittent confusion. No focal deficits on exam, currently oriented X 3 Likely secondary to pain medications. Also on Ativan, Doxepin at home -Tox screen is negative (Positive only for opiates- On Oxycodone for pain control) -CT head: no acute pathology -UA: negative for UTI -Chest X-ray is negative for any acute finding -Decreased Lorazepam from 1mg daily to 0.5 mg daily -Decreased Doxepin to 50mg BID (Takes 75mg BID at home) -Holding Oxycodone -Patient prefers not to get MRI brain -Neuro checks show no new change Diabetes Type II: Diet controlled since bariatric surgery -Last A1C:6.3 -Start ISS, Accu checks Hypertension:Stable -Continue home meds History GERD: Stable. Continue Protonix H/O TIA:Continue Plavix H/O P.SVT:Stable. Continue BB B/L Leg pain:Complains of B/L leg pain since surgery -Venous Doppler is negative for DVT Recent Left Shoulder surgery:No signs of infection -X ray of shoulder rules out any fluid collection DVT Prophylaxis:Lovenox SQ Code Status:Full Code Disposition: Potential discharge on 12/27/16 is remains stable. Vital Signs: Date Time Temp Pulse Resp B/P (MAP) Pulse Ox O2 Delivery O2 Flow Rate FiO2 12/26/16 15:05 36.9 85 18 122/80 (94) 93 Room Air 12/26/16 09:05 94 Room Air 12/26/16 08:00 Room Air 12/26/16 07:54 36.9 82 18 143/85 (104) 94 Room Air 12/26/16 00:05 Room Air 12/25/16 23:00 36.8 91 20 134/85 (101) 93 Room Air Lab Results: Results Past 24 Hours Test 12/26/16 06:34 Range/Units White Blood Count 3.93 4.8-10.8 K/uL Red Blood Count 3.42 4.2-5.4 M/uL Hemoglobin 11.0 12.0-16.0 g/dL Hematocrit 32.4 37-47 % Mean Corpuscular Volume 94.7 80-100 fL Mean Corpuscular Hemoglobin 32.2 25-34 pg Mean Corpuscular Hemoglobin Concent 34.0 32-36 g/dl Platelet Count 246 130-400 K/uL Mean Platelet Volume 8.4 7.4-10.4 fL Neutrophils (%) (Auto) 54.1 % Lymphocytes (%) (Auto) 28.0 % Monocytes (%) (Auto) 12.5 % Eosinophils (%) (Auto) 4.3 % Basophils (%) (Auto) 0.3 % Neutrophils # (Auto) 2.13 1.4-6.5 K/uL Lymphocytes # (Auto) 1.10 1.2-3.4 K/uL Monocytes # (Auto) 0.49 0.11-0.59 K/uL Eosinophils # (Auto) 0.17 0-0.5 K/uL Basophils # (Auto) 0.01 0-0.2 K/uL RDW Standard Deviation 47.6 36.4-46.3 fL RDW Coefficient of Variation 13.8 11.5-14.5 % Immature Granulocyte % (Auto) 0.8 % Immature Granulocyte # (Auto) 0.03 0.00-0.02 K/uL Sodium Level 142 136-145 mmol/L Potassium Level 3.5 3.5-5.1 mmol/L Chloride Level 108 98-107 mmol/L Carbon Dioxide Level 25 21-32 mmol/L Anion Gap 9.0 3-11 mmol/L Blood Urea Nitrogen 6 7-18 mg/dl Creatinine 0.48 0.60-1.20 mg/dl Est Creatinine Clear Calc Drug Dose 121.8 ml/min Estimated GFR () 117.6 Estimated GFR (Non- 101.5 BUN/Creatinine Ratio 13.1 10-20 Random Glucose 107 70-99 mg/dl Calcium Level 8.3 8.5-10.1 mg/dl
[2016-12-26] MEDS ORDERED: ZOLPIDEM TARTRATE 5 MG TAB PO PRN (17:45)
[2016-12-26] MEDS: ENOXAPARIN 40 MG/0.4 ML SYR SQ SCH (18:43)
[2016-12-26 20:38] VITALS: BP 114/69; PULSE 87
[2016-12-26 22:57] VITALS: BP 107/70; PULSE 84; TEMP 36.7; O2SAT 95
[2016-12-27] MEDS: TRAMADOL HCL 50 MG TAB PO PRN ×2 (02:29→08:40)
[2016-12-27 06:53] LABS: BASO % 0.2 %; BASO ABS # 0.01 K/uL (0-0.2); COMPLETE YES; EOS % 3.8 %; IG% 0.5 %; LYMPH % 25.6 %; LYMPH ABS # 1.07 K/uL (1.2-3.4); MEAN CELL VOLUME 95.7 fL (80-100); MEAN CORPUSCULAR HEMOGLOBIN 31.6 pg (25-34); MEAN PLATELET VOLUME 8.4 fL (7.4-10.4); MONO % 13.4 %; NEUT % 56.5 %; PLATELET COUNT 274 K/uL (130-400); RED BLOOD COUNT 3.45 M/uL (4.2-5.4); WHITE BLOOD COUNT 4.18 K/uL (4.8-10.8)
[2016-12-27 07:27] LABS: BUN/CREATININE RATIO 8.8 (10-20); CALCIUM 8.2 mg/dl (8.5-10.1); CREATININE 0.58 mg/dl (0.60-1.20); POTASSIUM 3.4 mmol/L (3.5-5.1)
[2016-12-27 07:35] VITALS: BP 179/82; PULSE 76; TEMP 37; O2SAT 95
[2016-12-27] MEDS: LORAZEPAM 0.5 MG TAB PO SCH (08:39)
[2016-12-27] MEDS: THIAMINE HCL 100 MG TAB PO SCH (08:40)
[2016-12-27] MEDS: LOSARTAN POTASSIUM 50 MG TAB PO SCH (08:40)
[2016-12-27] MEDS: METOPROLOL SUCC 25MG EXT REL TAB PO SCH (08:41)
[2016-12-27] MEDS: PANTOprazole SOD 40 MG TAB PO SCH (08:41)
[2016-12-27] MEDS: CLOPIDOGREL BISULFATE 75 MG TAB PO SCH (08:41)
[2016-12-27] MEDS: CHOLECALCIFEROL 1000 INTER.UNIT TAB PO SCH (08:42)
[2016-12-27] MEDS: DOXEPIN HCL 50 MG CAP PO SCH (08:42)
--- NOTE | 2016-12-27 10:15 | Progress Note ---
Internal Med Progress Note Date of Service: Dec 27, 2016. Provider Documentation: SUBJECTIVE: Patient is alert/awake, sitting in the chair and is in no apparent distress. Answers my questions appropriately. No SOB and denies any nausea/vomiting.Has been able to ambulate in room without any new symptoms. OBJECTIVE: Vital Signs-as noted below Examination: General Appearance: Awake/Alert, WD/WN, In no apparent distress Head: normocephalic, atraumatic Eyes: normal inspection, PERRL, EOMI, sclerae normal ENT: normal ENT inspection, hearing grossly normal. Ears, Nose & Throat are normal looking. Neck: Supple, trachea midline, No JVD. Respiratory/Chest: chest non-tender, lungs clear, normal breath sounds, no respiratory distress, no accessory muscle use Cardiovascular: regular rate, rhythm, no edema, no murmur Abdomen/GI: normal bowel sounds, non tender, soft Back: normal inspection Extremities/Musculoskelatal: normal inspection, no pedal edema, Left shoulder has surgical yuridia. No erythema, no drainage. 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 ASSESSMENT & PLAN: Altered Mental Status:Resolved. Clinically improving. Presented with intermittent confusion. No focal deficits on exam, currently oriented X 3 Likely secondary to pain medications. Also on Ativan, Doxepin at home -Tox screen is negative (Positive only for opiates- On Oxycodone for pain control) -CT head: no acute pathology -UA: negative for UTI -Chest X-ray is negative for any acute finding -Decreased Lorazepam from 1mg daily to 0.5 mg daily -Decreased Doxepin to 50mg BID (Takes 75mg BID at home) -Holding Oxycodone -Patient prefers not to get MRI brain -Neuro checks show no new change Diabetes Type II: Diet controlled since bariatric surgery -Last A1C:6.3 -Start ISS, Accu checks Hypertension:Stable -Continue home meds History GERD: Stable. Continue Protonix H/O TIA:Continue Plavix H/O P.SVT:Stable. Continue BB B/L Leg pain:Complains of B/L leg pain since surgery -Venous Doppler is negative for DVT Recent Left Shoulder surgery:No signs of infection -X ray of shoulder rules out any fluid collection DVT Prophylaxis:Lovenox SQ Code Status:Full Code Disposition: Discharge home later today. Follow up with PCP and Orthopedics in the coming week. Vital Signs: Date Time Temp Pulse Resp B/P (MAP) Pulse Ox O2 Delivery O2 Flow Rate FiO2 12/27/16 07:45 Room Air 12/27/16 07:35 37.0 76 16 179/82 (114) 95 Room Air 12/27/16 00:00 Room Air 12/26/16 22:57 36.7 84 16 107/70 (82) 95 Room Air 12/26/16 20:38 87 114/69 (84) 12/26/16 15:40 Room Air 12/26/16 15:05 36.9 85 18 122/80 (94) 93 Room Air Lab Results: Results Past 24 Hours Test 12/27/16 06:24 Range/Units White Blood Count 4.18 4.8-10.8 K/uL Red Blood Count 3.45 4.2-5.4 M/uL Hemoglobin 10.9 12.0-16.0 g/dL Hematocrit 33.0 37-47 % Mean Corpuscular Volume 95.7 80-100 fL Mean Corpuscular Hemoglobin 31.6 25-34 pg Mean Corpuscular Hemoglobin Concent 33.0 32-36 g/dl Platelet Count 274 130-400 K/uL Mean Platelet Volume 8.4 7.4-10.4 fL Neutrophils (%) (Auto) 56.5 % Lymphocytes (%) (Auto) 25.6 % Monocytes (%) (Auto) 13.4 % Eosinophils (%) (Auto) 3.8 % Basophils (%) (Auto) 0.2 % Neutrophils # (Auto) 2.36 1.4-6.5 K/uL Lymphocytes # (Auto) 1.07 1.2-3.4 K/uL Monocytes # (Auto) 0.56 0.11-0.59 K/uL Eosinophils # (Auto) 0.16 0-0.5 K/uL Basophils # (Auto) 0.01 0-0.2 K/uL RDW Standard Deviation 49.4 36.4-46.3 fL RDW Coefficient of Variation 14.1 11.5-14.5 % Immature Granulocyte % (Auto) 0.5 % Immature Granulocyte # (Auto) 0.02 0.00-0.02 K/uL Sodium Level 140 136-145 mmol/L Potassium Level 3.4 3.5-5.1 mmol/L Chloride Level 106 98-107 mmol/L Carbon Dioxide Level 24 21-32 mmol/L Anion Gap 10.0 3-11 mmol/L Blood Urea Nitrogen 5 7-18 mg/dl Creatinine 0.58 0.60-1.20 mg/dl Est Creatinine Clear Calc Drug Dose 100.8 ml/min Estimated GFR () 110.5 Estimated GFR (Non- 95.4 BUN/Creatinine Ratio 8.8 10-20 Random Glucose 113 70-99 mg/dl Calcium Level 8.2 8.5-10.1 mg/dl
[2016-12-27] MEDS ORDERED: SNQ50 PO (10:19)
[2016-12-27] MEDS ORDERED: AMB5 PO (10:19)
[2016-12-27] MEDS ORDERED: ULT50X PO (10:19)
[2016-12-27] MEDS ORDERED: CZR50 PO (10:19)
--- NOTE | 2016-12-27 10:25 | Discharge Instructions ---
Discharge Instructions Date of Service Dec 27, 2016. Admission Reason for Admission: Confusion Discharge Discharge Diagnosis / Problem: Altered Mental Status Discharge Goals Goal(s): Decrease discomfort, Improve function, Increase independence, Improve disease control, Learn about illness, Prevent Disease Progression Activity Recommendations Activity Limitations: resume your previous activity (As tolerated following fall precautions.) Lifting Limitations: until after follow-up appointment Exercise/Sports Limitations: as tolerated May Resume Sexual Activity: when tolerated Shower/Bathe: no limitations Driving or Machine Use: If get clearance by PCP . Instructions / Follow-Up Instructions / Follow-Up 1. Please follow the instructions regarding medications as discussed with you. 2. Avoid any narcotic for pain medication unless pain is unbearable. 3. Continue applying Ice packs on left shoulder as instructed 4. Use Ativan also only as needed 5. Drink adequate amount of fluids. 6 Get your blood pressure checked 2-3 times a week and if stays high, please discuss with PCP as well. Follow up with PCP in the next 3-5 days Follow up with Orthopedics in one week, Current Hospital Diet Patient's current hospital diet: AHA Diet (Heart Healthy) Discharge Diet Recommended Diet: AHA Diet (Heart Healthy) Pending Studies Studies pending at discharge: no Laboratory Results Hemoglobin A1c Test 12/04/16 10:22 Range/Units Estimated Average Glucose 134 mg/dl Hemoglobin A1c 6.3 H 4.5-5.6 % Medical Emergencies . Who to Call and When: Medical Emergencies: If at any time you feel your situation is an emergency, please call 911 immediately. . Non-Emergent Contact Non-Emergency issues call your: Primary Care Provider . . "Provider Documentation" section prepared by Pieter Tan. . VTE Core Measure Inpt VTE Proph given/why not?: Enoxaparin (Lovenox)SQ
--- NOTE | 2016-12-27 10:33 | Discharge Summary ---
Discharge Summary Date of Service Dec 27, 2016. Discharge Summary Admission Date: Dec 25, 2016 at 15:12 Discharge Date: Dec 27, 2016 Discharge Disposition: Home Principal Diagnosis: Altered Mental Status (Resolved) Secondary Diagnoses/Problems: History Diabetes Hypertension GERD Procedures: CT Head Chest X-Ray Vaccinations: NONE Consultations: NONE Pending Studies/Follow-Up: Follow up with Orthopedics in one week,. Medication Reconciliation New Medications: Doxepin HCl (Doxepin HCl) 50 Mg Cap 50 MG PO BID, #60 CAP Losartan Potassium (Losartan Potassium) 50 Mg Tab 50 MG PO QD@16, #30 TAB Tramadol HCl (Tramadol HCl) 50 Mg Tab 50 MG PO Q6 PRN for Pain, #30 TAB Zolpidem Tartrate (Zolpidem Tartrate) 5 Mg Tab 5 MG PO HS PRN for Sleep, #10 TAB Continued Medications: Albuterol (Ventolin Hfa) 60 Puffs/5400 Mcg Aers 2 PUFFS INH Q4 PRN for SOB/Wheezing Biotin (Cvs Biotin) 10 Mg Cap 10 MG PO QAM Cholecalciferol (D 1000) 1,000 Unit Cap 1 CAP PO TID Clopidogrel (Plavix) 75 Mg Tab 75 MG PO QAM Cyclosporine (Ophth) (Restasis) 0.05 % Emu 1 DROPS OP BID Ergocalciferol (Vitamin D) 50,000 Interunit Cap 75978 INTER.UNIT PO 3XWK TAKES MON,WED,FRI Flunisolide (Nasal) (Flunisolide) 0.025 % Spr 2 SPRY SALOMÓN DAILY PRN for allergies Metoclopramide (Reglan) 10 Mg Tab 10 MG PO AC, TAB Metoprolol Succ (Toprol Xl) (Toprol-Xl) 25 Mg Tabcr 12.5 MG PO QAM Pantoprazole (Protonix) 40 Mg Tab 40 MG PO QAM Pediatric Multiple Vitamin W/ (Multivitamin Gummies Chil) 1 Chw Chw 1 TAB PO QAM Promethazine Hcl (Phenergan) 25 Mg Tab 25 MG PO Q6H PRN for Nausea, TAB Discontinued Medications: Doxepin (Sinequan) 50 Mg Cap 75 MG PO QAM, CAP Doxepin (Sinequan) 50 Mg Cap 150 MG PO HS, CAP Lorazepam (Lorazepam) 1 Mg Tab 1 MG PO QAM PRN for PRN Oxycodone HCl (Oxycodone HCl) 5 Mg Tab 5-10 MG PO Q4H PRN for Pain, #60 TAB Admission Information HPI (per Admitting provider): Patient is a 66 yr female with PMH of HTN, DM II (Diet controlled since bariatric surgery), GERD, TIA, Peripheral neuropathy and other problems presents with history of intermittent confusion, decreased appetite, nausea, generalized body ache and has been having issues with ambulation since having left shoulder surgery by Dr. Funes one week ago. Her reports that she had some transient slurring of speech after taking pain medications yesterday and also has been having some memory issues since surgery. She also states she has developed a dry cough and has some burning micturition and increased frequency yesterday. Reports her left shoulder hurts and has decreased mobility and was supposed to use a sling for 6 weeks. Her thought that the confusion is secondary to pain meds and has not given any pain meds since yesterday evening. She is currently oriented X3, and denies any history of chest pain, SOB, headache, dizziness, fever, chills, abdominal pain, diarrhea, slurred speech, facial deformity, weakness/numbness in extremities, blurry vision. Physical Exam (per Admitting): General Appearance: WD/WN, no apparent distress Head: normocephalic, atraumatic Eyes: normal inspection, PERRL, EOMI, sclerae normal ENT: normal ENT inspection, hearing grossly normal Neck: supple, trachea midline Respiratory/Chest: chest non-tender, lungs clear, normal breath sounds, no respiratory distress, no accessory muscle use Cardiovascular: regular rate, rhythm, no edema, no murmur Abdomen/GI: normal bowel sounds, non tender, soft Back: normal inspection Extremities/Musculoskelatal: normal inspection, no pedal edema, + pertinent finding (Left shoulder has surgical yuridia. 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 Clinically improving. Presented with intermittent confusion. No focal deficits on exam, currently oriented X 3 Likely secondary to pain medications. Also on Ativan, Doxepin at home -Tox screen is negative (Positive only for opiates- On Oxycodone for pain control) -CT head: no acute pathology -UA: negative for UTI -Chest X-ray is negative for any acute finding -Decreased Lorazepam from 1mg daily to 0.5 mg daily -Decreased Doxepin to 50mg BID (Takes 75mg BID at home) -Holding Oxycodone -Patient prefers not to get MRI brain -Neuro checks show no new change Diabetes Type II: Diet controlled since bariatric surgery -Last A1C:6.3 -Start ISS, Accu checks Hypertension:Stable -Continue home meds History GERD: Stable. Continue Protonix H/O TIA:Continue Plavix H/O P.SVT:Stable. Continue BB B/L Leg pain:Complains of B/L leg pain since surgery -Venous Doppler is negative for DVT Recent Left Shoulder surgery:No signs of infection -X ray of shoulder rules out any fluid collection DVT Prophylaxis:Lovenox SQ Code Status:Full Code Disposition: Discharge home later today. Follow up with PCP and Orthopedics in the coming week. Total time spent on discharge = 40 minutes. This includes examination of the patient, discharge planning, medication reconciliation, and communication with other providers. Discharge Instructions Discharge Goals Goal(s): Decrease discomfort, Improve function, Increase independence, Improve disease control, Learn about illness, Prevent Disease Progression Activity Recommendations Activity Limitations: resume your previous activity (As tolerated following fall precautions.) Lifting Limitations: until after follow-up appointment Exercise/Sports Limitations: as tolerated May Resume Sexual Activity: when tolerated Shower/Bathe: no limitations Driving or Machine Use: If get clearance by PCP . Instructions / Follow-Up Instructions / Follow-Up 1. Please follow the instructions regarding medications as discussed with you. 2. Avoid any narcotic for pain medication unless pain is unbearable. 3. Continue applying Ice packs on left shoulder as instructed 4. Use Ativan also only as needed 5. Drink adequate amount of fluids. 6 Get your blood pressure checked 2-3 times a week and if stays high, please discuss with PCP as well. Follow up with PCP in the next 3-5 days Follow up with Orthopedics in one week, Current Hospital Diet Patient's current hospital diet: AHA Diet (Heart Healthy) Discharge Diet Recommended Diet: AHA Diet (Heart Healthy) Additional Copies To Conrad Mckeon D.O.
[2016-12-27 10:47] VITALS: BP 179/82; PULSE 76; TEMP 37; O2SAT 95
[2016-12-29 15:17] LABS: COD UR NEGATIVE NG/ML (CUTOFF=50); HYDROCOD UR NEGATIVE NG/ML (CUTOFF=50); HYDROMOR UR NEGATIVE NG/ML (CUTOFF=50); MORPHINE UR NEGATIVE NG/ML (CUTOFF=50); NORHYDROCODONE CONF UR NEGATIVE NG/ML (CUTOFF=50); OXYMORPH UR 1880 NG/ML (CUTOFF=50)
[2017-01-20] MEDS ORDERED: LACT10CA3 PO (15:19)
[2017-01-20] MEDS ORDERED: ATV1 PO (15:19)
[2017-01-20] MEDS ORDERED: CPR500 PO (15:19)
[2017-01-20] MEDS ORDERED: TRAM-10 PO (15:19)
[2017-01-31] MEDS ORDERED: PEDI1CHW95 PO (10:51)
[2017-01-31] MEDS ORDERED: TPRSR/25 PO (15:52)
[2017-01-31] MEDS ORDERED: RGL/5 PO (15:52)
[2017-01-31] MEDS ORDERED: PRT/40 PO (15:52)
[2017-01-31] MEDS ORDERED: SNQ/50 PO (15:52)
[2017-01-31] MEDS ORDERED: LOSA100T65 PO (15:52)
[2017-01-31] MEDS ORDERED: PLV75 PO (15:52)
[2017-01-31] MEDS ORDERED: VNTHFA/IN INH (15:52)
[2017-01-31] MEDS ORDERED: ONDA-63 PO (15:52)
[2017-01-31] MEDS ORDERED: CYNI1000 IM (15:56)
[2017-01-31] MEDS ORDERED: BIOT10CA PO (17:48)
[2017-01-31] MEDS ORDERED: CYCL0.052 OPB (17:48)
[2017-01-31] MEDS ORDERED: FLUN0.02 NAE (17:48)
[2017-02-02] MEDS ORDERED: KFL250 PO (13:27)
== END 2016-12-27 11:15 | disposition home or self-care (01) ==
LOC: C.EDB 10:51 → C.MSN 15:12 → EDBEDREQ 15:23 → ENRESERV 15:30 → EDBEDREQ 15:39
PROVIDERS: ADMIT Internal Medicine; ATTEND Emergency Medicine
DX: R41.82 Altered mental status, unspecified (principal); D64.9 Anemia, unspecified; I10 Essential (primary) hypertension; E78.5 Hyperlipidemia, unspecified; E11.42 Type 2 diabetes mellitus with diabetic polyneuropathy; K21.9 Gastro-esophageal reflux disease without esophagitis; M79.604 Pain in right leg; M79.605 Pain in left leg; J45.909 Unspecified asthma, uncomplicated; F41.9 Anxiety disorder, unspecified; E66.01 Morbid (severe) obesity due to excess calories; Z86.73 Personal history of transient ischemic attack (TIA), and cerebral infarction without residual deficits; Z98.84 Bariatric surgery status; Z98.1 Arthrodesis status; Z79.899 Other long term (current) drug therapy

== ENCOUNTER 2017-01-16 14:39 | Emergency (ER) | payer MEDICARE ==
[~2017-01-16] VITALS: Ht 160 cm; Wt 94.4 kg
[~2017-01-16 14:39] MED LIST changes: +AMB5 PO; -ATV1 PO; +CZR50 PO; -DOXE50CA3 PO; -LOSA1TAB38 PO; -OXYSR/20 PO; -PRMVC TOP; -RXC5 PO; +SNQ50 PO; +ULT50X PO
[2017-01-16 14:42] VITALS: Ht 160 cm; Wt 94.4 kg
[2017-01-16] MEDS ORDERED: SODIUM CHLORIDE 0.9% 1000ML 1,000 ML IV STA (15:00)
[2017-01-16] MEDS ORDERED: ONDANSETRON INJ 2 MG/ML 2 ML VIAL IV STA (15:00)
--- NOTE | 2017-01-16 15:11 | EMERGENCY ROOM VISIT NOTE ---
History Report prepared by Tano: Niki Jules Under the Supervision of: Dr. Mariano Gutierrez D.O. First contact with patient: 14:49 Chief Complaint: WEAKNESS Stated Complaint: NAUSEA, GENERALIZED WEAKNESS Nursing Triage Summary: triage note: pt ambulatory to triage. pt reports generalized weakness and nausea since yesterday. History of Present Illness The patient is a 66 year old female who presents to the Emergency Room with complaints of persistent weakness starting yesterday. The patient had a left shoulder replacement 1 month ago from which she is still recuperating. She reports generalized weakness in both her arms and legs which started yesterday. She also reports nausea. She denies any speech problems, headache, chest pain, SOB, abdominal pain, diarrhea, fever, cough, SOB with walking, or leg pain. She notes some swelling in her legs. She still has some pain in her left arm and soreness in her neck which has been present since her surgery. She denies any new arm pain. She has had a decreased appetite recently. She had a bowel movement today which was normal. She denies any other symptoms. She has a history of neuropathy in her feet and hypertension which is under control. Source of History: patient Onset: yesterday Position: other (global) Quality: other (weakness) Timing: other (persistent) Associated Symptoms: + neck pain, + nausea, No fevers, No headache, No cough , No chest pain, No SOB, No abdominal pain, No diarrhea Note: Pt reports leg swelling, decreased appetite. Pt denies speech problems, SOB with walking, leg pain. Review of Systems See HPI for pertinent positives & negatives. A total of 10 systems reviewed and were otherwise negative. Past Medical & Surgical Medical Problems: (1) Anxiety (2) Asthma (3) C. difficile diarrhea (4) DM2 (diabetes mellitus, type 2) (5) GERD (gastroesophageal reflux disease) (6) Hyperlipidemia (7) Hypertension (8) Morbid obesity (9) Sacral back pain (10) Shoulder pain Surgical Problems: (1) H/O gastric bypass (2) H/O hernia repair (3) H/O spinal fusion (4) History of carpal tunnel surgery (5) Previous section (6) S/P appendectomy (7) S/P cholecystectomy (8) S/p left shoulder surgery (9) S/P parathyroidectomy (10) S/P tonsillectomy and adenoidectomy (11) Total knee replacement status Family History Diabetes mellitus Gallbladder disease Heart disease Hypertension Social History Smoking Status: Never Smoker Alcohol Use: none Drug Use: none Marital Status: Housing Status: lives with significant other Current/Historical Medications Scheduled Biotin (Cvs Biotin), 10 MG PO QAM Cephalexin Monohydrate (Keflex), 500 MG PO QID Clopidogrel Bisulfate (Clopidogrel), 75 MG PO QAM Cyanocobalamin (Cyanocobalamin), 1,000 MCG IM Q3 MONTHS Cyclosporine (Ophth) (Restasis), 1 DROP OPB BID Doxepin Hcl (Sinequan), 50 MG PO BID Lorazepam (Lorazepam), 1 MG PO QAM Losartan Potassium (Cozaar), 100 MG PO DAILY Metoclopramide HCl (Metoclopramide HCl), 5 MG PO BID Metoprolol Succinate (Metoprolol Succinate ER), 12.5 MG PO QAM Pantoprazole (Pantoprazole Sodium), 40 MG PO QAM Pediatric Multiple Vitamin W/ (Multivitamin Gummies Chil), 1 TAB PO QAM Scheduled PRN Albuterol Hfa (Ventolin Hfa), 2 PUFFS INH Q6H PRN for Wheezing Flunisolide (Nasal) (Flunisolide), 2 SPRY SALOMÓN DAILY PRN for Allergy Symptoms Ondansetron (Ondansetron HCl), 8 MG PO UD PRN for Nausea Promethazine HCl (Promethazine HCl), 25 MG PO Q6H PRN for Nausea Tramadol HCl (Tramadol HCl), 50 MG PO Q6H PRN for Pain Zolpidem Tartrate (Zolpidem Tartrate), 5 MG PO HS PRN for Sleep Allergies Coded Allergies: Atorvastatin (Verified Allergy, Unknown, myalgias per PCP note , 12/25/16) Rosuvastatin (Unverified Allergy, Unknown, MUSCLE ACHES, 12/25/16) CI Pigment Blue 63 (Verified Adverse Reaction, Mild, PSYCHOSIS, 12/25/16) Duloxetine (Verified Adverse Reaction, Mild, PSYCHOSIS, 12/25/16) Gabapentin (Verified Adverse Reaction, Mild, PSYCHOSIS, 12/25/16) Morphine (Verified Adverse Reaction, Mild, NAUSEA, 12/25/16) NSAIDs (Verified Adverse Reaction, Unknown, s/p bariatric surgery, 12/25/16) per gmg Physical Exam Vital Signs Date Time Temp Pulse Resp B/P (MAP) Pulse Ox O2 Delivery O2 Flow Rate FiO2 01/16/17 18:28 37.4 106 14 126/91 95 01/16/17 18:09 126/91 01/16/17 18:06 106 14 95 01/16/17 18:01 140/92 01/16/17 17:39 104 29 97 01/16/17 17:31 128/79 01/16/17 17:09 99 23 95 01/16/17 17:01 127/95 01/16/17 16:39 97 17 97 01/16/17 16:31 133/84 01/16/17 16:27 131/97 01/16/17 16:26 97 18 136/82 97 131/97 01/16/17 16:24 141/90 01/16/17 16:09 98 23 141/90 99 01/16/17 15:49 106 01/16/17 14:42 37.4 121 20 120/72 96 Room Air Physical Exam GENERAL: Patient is awake, alert, and in no acute distress. Patient is resting comfortably and showing no signs of anxiety EYES: The conjunctivae are clear. The pupils are round and reactive. EARS, NOSE, MOUTH AND THROAT: The nose is without any evidence of any deformity. Mucous membranes are moist tongue is midline NECK: The neck is nontender and supple. RESPIRATORY: Normal respiratory effort is noted there is no evidence of wheezing rhonchi or rales CARDIOVASCULAR: Regular rate and rhythm noted there no murmurs rubs or gallops normal S1 normal S2 GASTROINTESTINAL: The abdomen is mildly distended, but soft. No tenderness guarding or rigidity. MUSCULOSKELETAL/EXTREMITIES: There was a post surgical site noted over the left anterior shoulder. No erythema swelling or drainage noted. ROM did elicit pain. SKIN: There is no obvious evidence of any rash. There are no petechiae, pallor or cyanosis noted. Pulses symmetric in both upper and lower extremities. NEUROLOGIC: Patient is awake alert and oriented x3, lan engineer strength symmetric, no drift. Medical Decision & Procedures ER Provider Diagnostic Interpretation: X-ray results as stated below per interpretation by me and the radiologist. ABDOMEN 2VIEW W/PA CHEST RTN CLINICAL HISTORY: ABDOMINAL PAIN/GI pain COMPARISON STUDY: 12/25/2016 FINDINGS: The soft tissues, psoas shadows, renal outlines and intestinal gas pattern appear normal. There is no evidence for bowel obstruction. There is no evidence for free intraperitoneal air. No abnormal abdominal calcifications are seen. A frontal view of the chest was performed and is unremarkable. Stable postoperative changes of the thoracolumbar spine and right sacrum. Nonobstructive bowel pattern. IMPRESSION: Chronic and postoperative change. No acute process. The above report was generated using voice recognition software. It may contain grammatical, syntax or spelling errors. Electronically signed by: Alonso Rivera M.D. 01/16/2017 4:12 PM Dictated Date/Time: 01/16/2017 4:11 PM Laboratory Results 01/16/17 15:37 Red Blood Count 3.99, Mean Corpuscular Volume 95.0, Mean Corpuscular Hemoglobin 31.3, Mean Corpuscular Hemoglobin Concent 33.0, Mean Platelet Volume 9.0, Neutrophils (%) (Auto) 70.0, Lymphocytes (%) (Auto) 22.0, Monocytes (%) (Auto) 6.5, Eosinophils (%) (Auto) 0.9, Basophils (%) (Auto) 0.2, Neutrophils # (Auto) 3.75, Lymphocytes # (Auto) 1.18, Monocytes # (Auto) 0.35, Eosinophils # (Auto) 0.05, Basophils # (Auto) 0.01 01/16/17 15:37 Test 01/16/17 15:05 01/16/17 15:37 Urine Color YELLOW Urine Appearance CLEAR (CLEAR) Urine pH 5.0 (4.5-7.5) Urine Specific [place] 1.020 (1.000-1.030) Urine Protein NEG (NEG) Urine Glucose (UA) NEG (NEG) Urine Ketones NEG (NEG) Urine Occult Blood NEG (NEG) Urine Nitrite NEG (NEG) Urine Bilirubin NEG (NEG) Urine Urobilinogen NEG (NEG) Urine Leukocyte Esterase LARGE (NEG) Urine WBC (Auto) >30 /hpf (0-5) Urine RBC (Auto) 0-4 /hpf (0-4) Urine Hyaline Casts (Auto) 5-10 /lpf (0-5) Urine Epithelial Cells (Auto) >30 /lpf (0-5) Urine Bacteria (Auto) NEG (NEG) Urine Renal Epithelial Cells 5-10 /lpf (0-5) Urine Yeast (Auto) PRESENT (NONE PRSENT) White Blood Count 5.36 K/uL (4.8-10.8) Red Blood Count 3.99 M/uL (4.2-5.4) Hemoglobin 12.5 g/dL (12.0-16.0) Hematocrit 37.9 % (37-47) Mean Corpuscular Volume 95.0 fL (80-100) Mean Corpuscular Hemoglobin 31.3 pg (25-34) Mean Corpuscular Hemoglobin Concent 33.0 g/dl (32-36) Platelet Count 311 K/uL (130-400) Mean Platelet Volume 9.0 fL (7.4-10.4) Neutrophils (%) (Auto) 70.0 % Lymphocytes (%) (Auto) 22.0 % Monocytes (%) (Auto) 6.5 % Eosinophils (%) (Auto) 0.9 % Basophils (%) (Auto) 0.2 % Neutrophils # (Auto) 3.75 K/uL (1.4-6.5) Lymphocytes # (Auto) 1.18 K/uL (1.2-3.4) Monocytes # (Auto) 0.35 K/uL (0.11-0.59) Eosinophils # (Auto) 0.05 K/uL (0-0.5) Basophils # (Auto) 0.01 K/uL (0-0.2) RDW Standard Deviation 48.4 fL (36.4-46.3) RDW Coefficient of Variation 14.0 % (11.5-14.5) Immature Granulocyte % (Auto) 0.4 % Immature Granulocyte # (Auto) 0.02 K/uL (0.00-0.02) Prothrombin Time 10.1 SECONDS (9.0-12.0) Prothromb Time International Ratio 0.9 (0.9-1.1) Activated Partial Thromboplast Time 24.2 SECONDS (21.0-31.0) Partial Thromboplastin Ratio 0.9 Anion Gap 10.0 mmol/L (3-11) Est Creatinine Clear Calc Drug Dose 73.6 ml/min Estimated GFR () 87.1 Estimated GFR (Non- 75.2 BUN/Creatinine Ratio 13.6 (10-20) Calcium Level 8.4 mg/dl (8.5-10.1) Magnesium Level 2.4 mg/dl (1.8-2.4) Total Bilirubin 0.3 mg/dl (0.2-1) Direct Bilirubin 0.1 mg/dl (0-0.2) Aspartate Amino Transf (AST/SGOT) 11 U/L (15-37) Alanine Aminotransferase (ALT/SGPT) 14 U/L (12-78) Alkaline Phosphatase 186 U/L (45-117) Total Creatine Kinase 25 U/L (26-192) Creatine Kinase MB 1.1 ng/ml (0.5-3.6) Creatine Kinase MB Ratio 4.4 (0-3.0) Troponin I < 0.015 ng/ml (0-0.045) Total Protein 5.8 gm/dl (6.4-8.2) Albumin 2.8 gm/dl (3.4-5.0) Lipase 46 U/L (73-393) Laboratory results per my review. Medications Administered Medications (Trade) Dose Ordered Sig/Valente Route Start Time Stop Time Status Last Admin Dose Admin Sodium Chloride 1,000 ml @ 999 mls/hr Q1H1M STAT IV 01/16/17 15:00 01/16/17 16:00 DC 01/16/17 15:00 999 MLS/HR Ondansetron HCl (Zofran Inj) 4 mg NOW STAT IV 01/16/17 15:00 01/16/17 15:01 DC 01/16/17 15:00 4 MG Oxycodone HCl (Roxicodone Immediate Rel Tab) 5 mg NOW STAT PO 01/16/17 15:48 01/16/17 15:49 DC 01/16/17 15:48 5 MG Ceftriaxone Sodium (Rocephin Inj) 1 gm NOW STAT IV 01/16/17 16:28 01/16/17 16:29 DC 01/16/17 16:28 1 GM Promethazine HCl 12.5 mg/Sodium Chloride 50.5 ml @ 204 mls/hr NOW STAT IV 01/16/17 17:38 01/16/17 17:52 DC 01/16/17 17:38 204 MLS/HR Oxycodone HCl (Roxicodone Immediate Rel 5MG Home Pack) 1 homepack UD ONCE PO 01/16/17 17:45 01/16/17 17:46 DC 01/16/17 17:45 1 HOMEPACK Promethazine HCl (Phenergan 25MG Home Pack) 1 homepack UD ONCE PO 01/16/17 17:45 01/16/17 17:46 DC 01/16/17 17:45 1 HOMEPACK ECG Indication: weakness Rate (beats per minute): 115 Rhythm: sinus tachycardia Findings: no ectopy, other (no acute ST segment abnormalities) Comparison ECG Date: 25-Dec-2016 Change: no significant change ED Course 1455: The patient was evaluated in room B8. A complete history and physical examination were performed. 1500: Zofran Inj 4 mg IV, NSS 1000 ml @ 999 mls/hr IV. 1548: Oxycodone HCl 5 mg PO. 1628: Rocephin Inj 1 gm IV. 1631: I reevaluated the patient. I updated her on the results. 1738: Promethazine HCl 12.5 mg/Sodium Chloride 50.5 ml @ 204 mls/hr IV. 1740: Upon reevaluation, the patient is resting comfortably. I discussed the results and treatment plan with her. She verbalized agreement of the treatment plan. She was discharged home. 1745: Promethazine HCl 1 homepack PO, Oxycodone HCl 1 homepack PO. Medical Decision Prior records/ancillary studies reviewed and summarized above. Nursing notes reviewed. Additional history obtained from family. The patient's history was concerning for weakness. Differential diagnosis: Etiologies such as metabolic, infection, hypo/hyperglycemia, electrolyte abnormalities, cardiac sources, intracerebral event, toxicologic, neurologic, as well as others were entertained. The patient is a 66-year-old female who presented to the emergency department for an evaluation of generalized weakness. She recently had shoulder surgery. She also complained of pain in her left shoulder into her neck and down her arm but she states that this is not new for today's visit but has started recently. The patient was treated with IV fluids and IV antibiotics for presumed urinary tract infection. I discussed patient's laboratory and radiographic studies with her. Her postoperative site appeared well-healing. There is no signs of infection. She was feeling much better on subsequent reevaluation. I discussed follow-up with the patient. She was encouraged to rest and avoid any strenuous activity. She was also encouraged to call her primary care physician to schedule a follow-up appointment as well as a follow-up appointment with her primary orthopedic surgeon. She was also encouraged to return to the emergency department immediately if symptoms change worsen or the need arises. Medication Reconcilliation Current Medication List: was personally reviewed by me Blood Pressure Screening Patient's blood pressure: Normal blood pressure Blood pressure disposition: Did not require urgent referral Impression Primary Impression: Dizziness Additional Impressions: UTI (urinary tract infection) Generalized weakness Scribe Attestation The scribe's documentation has been prepared under my direction and personally reviewed by me in its entirety. I confirm that the note above accurately reflects all work, treatment, procedures, and medical decision making performed by me. Departure Information Dispostion Home / Self-Care Prescriptions Cephalexin Monohydrate (KEFLEX) 500 Mg Cap 500 MG PO QID, #28 CAP Prov: Mariano Gutierrez, DO 01/16/17 Referrals Conrad Mckeon D.O. Forms HOME CARE DOCUMENTATION FORM, IMPORTANT VISIT INFORMATION Patient Instructions ED Weakness GIO, My [facility] [address], Urinary Tract Infecs Women Additional Instructions Call your family to schedule a follow-up appointment. Drink plenty clear liquids. Rest and avoid any strenuous activity. Continue all medications as prescribed. Problem Qualifiers Additional Impressions:
[2017-01-16 15:28] LABS: URINE APPEARANCE CLEAR (CLEAR); URINE BILIRUBIN NEG (NEG); URINE COLOR YELLOW; URINE EPITHELIAL CELL AUTO >30 /lpf (0-5); URINE NITRITE NEG (NEG); UROBILINOGEN NEG (NEG)
[2017-01-16 15:40] LABS: MANUAL MICROSCOPIC REQUIRED? NO; REVIEW REQ? YES
[2017-01-16] MEDS ORDERED: OXYCODONE HCL IR 5 MG TAB (IMMEDIATE RELEASE) PO STA (15:48)
[2017-01-16] MEDS ORDERED: ULT50 PO (15:52)
[2017-01-16] MEDS ORDERED: ZOLP5TAB6 PO (15:52)
[2017-01-16] MEDS ORDERED: ATV1 PO (15:52)
[2017-01-16] MEDS ORDERED: PROM25TA16 PO (15:52)
[2017-01-16 16:09] LABS: BASO % 0.2 %; BASO ABS # 0.01 K/uL (0-0.2); COMPLETE YES; EOS % 0.9 %; HEMATOCRIT 37.9 % (37-47); IG% 0.4 %; LYMPH ABS # 1.18 K/uL (1.2-3.4); MEAN CORPUSCULAR HEMOGLOBIN 31.3 pg (25-34); MONO % 6.5 %; PLATELET COUNT 311 K/uL (130-400); RED BLOOD COUNT 3.99 M/uL (4.2-5.4); WHITE BLOOD COUNT 5.36 K/uL (4.8-10.8)
[2017-01-16 16:13] LABS: INR 0.9 (0.9-1.1); PARTIAL THROMBOPLASTIN RATIO 0.9; PROTHROMBIN TIME (PATIENT) 10.1 SECONDS (9.0-12.0)
--- NOTE | 2017-01-16 16:14 | DIAGNOSTIC IMAGING REPORT ---
ABDOMEN 2VIEW W/PA CHEST RTN CLINICAL HISTORY: ABDOMINAL PAIN/GI pain COMPARISON STUDY: 12/25/2016 FINDINGS: The soft tissues, psoas shadows, renal outlines and intestinal gas pattern appear normal. There is no evidence for bowel obstruction. There is no evidence for free intraperitoneal air. No abnormal abdominal calcifications are seen. A frontal view of the chest was performed and is unremarkable. Stable postoperative changes of the thoracolumbar spine and right sacrum. Nonobstructive bowel pattern. IMPRESSION: Chronic and postoperative change. No acute process. The above report was generated using voice recognition software. It may contain grammatical, syntax or spelling errors. Electronically signed by: Alonso Rivera M.D. 01/16/2017 4:12 PM Dictated Date/Time: 01/16/2017 4:11 PM
[2017-01-16] MEDS ORDERED: CEFTRIAXONE SOD INJ 1 GM ADDVIAL IV STA (16:28)
[2017-01-16 16:30] LABS: ALT/SGPT 14 U/L (12-78); AST/SGOT 11 U/L (15-37); BLOOD UREA NITROGEN 11 mg/dl (7-18); BUN/CREATININE RATIO 13.6 (10-20); CALCIUM 8.4 mg/dl (8.5-10.1); CARBON DIOXIDE 23 mmol/L (21-32); CHLORIDE 104 mmol/L (98-107); CREATININE 0.81 mg/dl (0.60-1.20); GLUCOSE 111 mg/dl (70-99); MAGNESIUM 2.4 mg/dl (1.8-2.4); SODIUM 137 mmol/L (136-145)
[2017-01-16 16:40] LABS: ALKALINE PHOSPHATASE 186 U/L (45-117); CKMB/CK RATIO 4.4 (0-3.0)
[2017-01-16] MEDS ORDERED: PROMETHAZINE HCL INJ 12.5 MG in SODIUM CHLORIDE 0.9% 50ML 50 ML IV STA (17:38)
[2017-01-16] MEDS ORDERED: CEPH500C2 PO (17:44)
[2017-01-16] MEDS ORDERED: OXYCODONE IR HOME PACK PO ONE (17:45)
[2017-01-16] MEDS ORDERED: PHENERGAN 25MG HOMEPACK PO ONE (17:45)
[2017-01-16 18:28] VITALS: BP 126/91; PULSE 106; TEMP 37.4; O2SAT 95
[2017-01-20] MEDS ORDERED: TRAM-10 PO (15:19)
[2017-01-20] MEDS ORDERED: CPR500 PO (15:19)
[2017-01-20] MEDS ORDERED: ATV1 PO (15:19)
[2017-01-20] MEDS ORDERED: LACT10CA3 PO (15:19)
[2017-01-31] MEDS ORDERED: PEDI1CHW95 PO (10:51)
[2017-01-31] MEDS ORDERED: SNQ/50 PO (15:52)
[2017-01-31] MEDS ORDERED: ONDA-63 PO (15:52)
[2017-01-31] MEDS ORDERED: RGL/5 PO (15:52)
[2017-01-31] MEDS ORDERED: PRT/40 PO (15:52)
[2017-01-31] MEDS ORDERED: PLV75 PO (15:52)
[2017-01-31] MEDS ORDERED: TPRSR/25 PO (15:52)
[2017-01-31] MEDS ORDERED: VNTHFA/IN INH (15:52)
[2017-01-31] MEDS ORDERED: LOSA100T65 PO (15:52)
[2017-01-31] MEDS ORDERED: CYNI1000 IM (15:56)
[2017-01-31] MEDS ORDERED: CYCL0.052 OPB (17:48)
[2017-01-31] MEDS ORDERED: BIOT10CA PO (17:48)
[2017-01-31] MEDS ORDERED: FLUN0.02 NAE (17:48)
[2017-02-02] MEDS ORDERED: KFL250 PO (13:27)
== END 2017-01-16 18:30 | disposition home or self-care (01) ==
LOC: C.EDB 14:40
DX: R42 Dizziness and giddiness (principal); N39.0 Urinary tract infection, site not specified; R53.1 Weakness; F41.9 Anxiety disorder, unspecified; J45.909 Unspecified asthma, uncomplicated; E11.9 Type 2 diabetes mellitus without complications; K21.9 Gastro-esophageal reflux disease without esophagitis; E78.5 Hyperlipidemia, unspecified; I10 Essential (primary) hypertension; E66.01 Morbid (severe) obesity due to excess calories; Z83.3 Family history of diabetes mellitus; Z82.49 Family history of ischemic heart disease and other diseases of the circulatory system

== ENCOUNTER 2017-01-18 14:31 | Inpatient (IN) | payer MEDICARE, OTHER ==
[~2017-01-18] VITALS: Ht 160 cm; Wt 95.8 kg
[~2017-01-18 14:31] MED LIST changes: -AMB5 PO; +ATV1 PO; +CEPH500C2 PO; -CHOL100041 PO; -CLOP1TAB15 PO; -CZR50 PO; -METO-157 PO; -METO25TA3 PO; -PANT40TA PO; +PROM25TA16 PO; -PROM25TA9 PO; -PRVHFAIN INH; -SNQ50 PO; +ULT50 PO; -ULT50X PO; -VTMD PO; +ZOLP5TAB6 PO
[2017-01-18] MEDS ORDERED: ONDANSETRON INJ 2 MG/ML 2 ML VIAL IV STA (14:53)
[2017-01-18] MEDS ORDERED: SODIUM CHLORIDE 0.9% 1000ML 1,000 ML IV STA ×2 (14:53→16:06)
[2017-01-18] MEDS ORDERED: OXYCODONE HCL IR 5 MG TAB (IMMEDIATE RELEASE) PO STA (14:55)
--- NOTE | 2017-01-18 15:09 | DIAGNOSTIC IMAGING REPORT ---
CHEST ONE VIEW PORTABLE CLINICAL HISTORY: EVALUATE ALTERED MENTAL STATUS/WEAKNESS mental status change COMPARISON STUDY: 01/16/2017 FINDINGS: Operative changes consistent with prior thoracolumbar laminectomy and fusion as well as a left shoulder arthroplasty. Lungs are clear. Diaphragms are smooth. No evidence for cardiac enlargement. IMPRESSION: No acute process. The above report was generated using voice recognition software. It may contain grammatical, syntax or spelling errors. Electronically signed by: Alonso Rivera M.D. 01/18/2017 3:08 PM Dictated Date/Time: 01/18/2017 3:07 PM
[2017-01-18 15:23] LABS: BASO % 0.2 %; BASO ABS # 0.01 K/uL (0-0.2); COMPLETE YES; HEMATOCRIT 38.9 % (37-47); IG% 0.4 %; LYMPH % 25.5 %; LYMPH ABS # 1.23 K/uL (1.2-3.4); MEAN CELL VOLUME 95.6 fL (80-100); MEAN CORPUSCULAR HEMOGLOBIN 31.7 pg (25-34); MEAN CORPUSCULAR HGB CONC 33.2 g/dl (32-36); MEAN PLATELET VOLUME 8.5 fL (7.4-10.4); MONO % 8.7 %; NEUT % 64.2 %; PLATELET COUNT 300 K/uL (130-400); RED BLOOD COUNT 4.07 M/uL (4.2-5.4); WHITE BLOOD COUNT 4.83 K/uL (4.8-10.8)
[2017-01-18 15:31] LABS: INR 0.9 (0.9-1.1); PARTIAL THROMBOPLASTIN RATIO 0.9
[2017-01-18 15:40] LABS: ALT/SGPT 13 U/L (12-78); BLOOD UREA NITROGEN 9 mg/dl (7-18); CALCIUM 8.5 mg/dl (8.5-10.1); CARBON DIOXIDE 22 mmol/L (21-32); CHLORIDE 106 mmol/L (98-107); CREATININE 0.74 mg/dl (0.60-1.20); GLUCOSE 119 mg/dl (70-99); MAGNESIUM 2.3 mg/dl (1.8-2.4); POTASSIUM 3.9 mmol/L (3.5-5.1); SODIUM 142 mmol/L (136-145)
[2017-01-18 15:48] LABS: ALKALINE PHOSPHATASE 170 U/L (45-117); AST/SGOT 13 U/L (15-37); CKMB/CK RATIO 4.3 (0-3.0); PHOSPHORUS 2.2 mg/dl (2.5-4.9); THYROID STIMULATING HORMONE 0.256 uIu/ml (0.300-4.500)
[2017-01-18 15:59] LABS: URINE APPEARANCE CLEAR (CLEAR); URINE BILIRUBIN NEG (NEG); URINE COLOR YELLOW; URINE EPITHELIAL CELL AUTO >30 /lpf (0-5); URINE NITRITE NEG (NEG); URINE PH 5.5 (4.5-7.5); URINE SPECIFIC GRAVITY 1.016 (1.000-1.030); UROBILINOGEN NEG (NEG)
[2017-01-18 16:01] LABS: MANUAL MICROSCOPIC REQUIRED? NO; REVIEW REQ? NO
--- NOTE | 2017-01-18 16:03 | DIAGNOSTIC IMAGING REPORT ---
HEAD WITHOUT CONTRAST (CT) CT DOSE: 537.48 mGy.cm HISTORY: Mental status change EVALUATE ALTERED MENTAL STATUS/WEAKNESS TECHNIQUE: Multiaxial CT images of the head were performed without the use of intravenous contrast. A dose lowering technique was utilized adhering to the principles of ALARA. Comparison: 12/25/2016 Findings: The paranasal sinuses and mastoid air cells are clear. The calvarium and skull base are intact. The ventricles and sulci are within normal limits. There is no mass, hematoma, midline shift, or acute infarct. Impression: No acute intracranial abnormality. The above report was generated using voice recognition software. It may contain grammatical, syntax or spelling errors. Electronically signed by: Alonso Rivera M.D. 01/18/2017 4:02 PM Dictated Date/Time: 01/18/2017 4:01 PM
[2017-01-18] MEDS ORDERED: LEVAQUIN 750MG / 150ML D5W IV STA (16:06)
[2017-01-18] MEDS ORDERED: HYDROmorphone INJ 1 MG/ML SYR IV STA (16:10)
--- NOTE | 2017-01-18 16:15 | EMERGENCY ROOM VISIT NOTE ---
History Report prepared by Tano: Niki Jules Under the Supervision of: Dr. Mariano Gutierrez D.O. 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 She was here 2 days ago with the same symptoms. She reports that the symptoms have worsened since then. She is taking Tylenol to no significant relief. She complains of left shoulder pain radiating to her left neck and down to her elbow and thumb, nausea, and dizziness. Her SO states that she had some garbled speech today and short term memory loss. She states that she has been urinating more than usual and has dysuria. She reports redness and itching in her genitals. She denies any fever, SOB, pain with breathing, pain or swelling in the legs, chest pain, or abdominal pain. 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 Pt denies pain/swelling in legs. Review of Systems See HPI for pertinent positives & negatives. A total of 10 systems reviewed and were otherwise negative. Past Medical & Surgical Medical Problems: (1) Anxiety (2) Asthma (3) C. difficile diarrhea (4) DM2 (diabetes mellitus, type 2) (5) GERD (gastroesophageal reflux disease) (6) Hyperlipidemia (7) Hypertension (8) Morbid obesity (9) Sacral back pain (10) Shoulder pain (11) UTI (urinary tract infection) Surgical Problems: (1) H/O gastric bypass (2) H/O hernia repair (3) H/O spinal fusion (4) History of carpal tunnel surgery (5) Previous section (6) S/P appendectomy (7) S/P cholecystectomy (8) S/p left shoulder surgery (9) S/P parathyroidectomy (10) S/P tonsillectomy and adenoidectomy (11) Total knee replacement status Family History Diabetes mellitus Gallbladder disease Heart disease Hypertension Social History Smoking Status: Never Smoker Alcohol Use: none Drug Use: none Marital Status: Housing Status: lives with significant other Current/Historical Medications Scheduled Biotin (Cvs Biotin), 10 MG PO QAM Clopidogrel Bisulfate (Clopidogrel), 75 MG PO QAM Cyanocobalamin (Cyanocobalamin), 1,000 MCG IM Q3 MONTHS Cyclosporine (Ophth) (Restasis), 1 DROP OPB BID Doxepin Hcl (Sinequan), 50 MG PO BID Lorazepam (Lorazepam), 1 MG PO QAM Losartan Potassium (Cozaar), 100 MG PO DAILY Metoclopramide HCl (Metoclopramide HCl), 5 MG PO BID Metoprolol Succinate (Metoprolol Succinate ER), 12.5 MG PO QAM Pantoprazole (Pantoprazole Sodium), 40 MG PO QAM Pediatric Multiple Vitamin W/ (Multivitamin Gummies Chil), 1 TAB PO QAM Scheduled PRN Albuterol Hfa (Ventolin Hfa), 2 PUFFS INH Q6H PRN for Wheezing Flunisolide (Nasal) (Flunisolide), 2 SPRY SALOMÓN DAILY PRN for Allergy Symptoms Ondansetron (Ondansetron HCl), 8 MG PO UD PRN for Nausea Promethazine HCl (Promethazine HCl), 25 MG PO Q6H PRN for Nausea Allergies Coded Allergies: Atorvastatin (Verified Allergy, Unknown, myalgias per PCP note , 12/25/16) Rosuvastatin (Unverified Allergy, Unknown, MUSCLE ACHES, 12/25/16) CI Pigment Blue 63 (Verified Adverse Reaction, Mild, PSYCHOSIS, 12/25/16) Duloxetine (Verified Adverse Reaction, Mild, PSYCHOSIS, 12/25/16) Gabapentin (Verified Adverse Reaction, Mild, PSYCHOSIS, 12/25/16) Morphine (Verified Adverse Reaction, Mild, NAUSEA, 12/25/16) NSAIDs (Verified Adverse Reaction, Unknown, s/p bariatric surgery, 12/25/16) per gmg Physical Exam Vital Signs Date Time Temp Pulse Resp B/P (MAP) Pulse Ox O2 Delivery O2 Flow Rate FiO2 01/18/17 17:01 110 20 118/81 95 Room Air 01/18/17 16:59 109 121/82 110 118/81 01/18/17 16:27 109 20 118/77 93 Room Air 01/18/17 15:06 120 01/18/17 14:43 96 Room Air 01/18/17 14:43 96 Room Air 01/18/17 14:34 36.7 129 18 120/79 96 Room Air Physical Exam GENERAL: Patient is awake, alert, and in no acute distress. Patient is resting comfortably and showing no signs of anxiety EYES: The conjunctivae are clear. The pupils are round and reactive. EARS, NOSE, MOUTH AND THROAT: The nose is without any evidence of any deformity. Mucous membranes are moist tongue is midline NECK: The neck is nontender and supple. RESPIRATORY: Normal respiratory effort is noted there is no evidence of wheezing rhonchi or rales CARDIOVASCULAR: Tachycardic rate, but regular rhythm, no definite murmur noted to auscultation. GASTROINTESTINAL: The abdomen is soft. Bowel sounds are present in all quadrants. Abdomen is nontender MUSCULOSKELETAL/EXTREMITIES: Post operative site noted to the left shoulder, no erythema or swelling noted, ROM elicited pain. SKIN: Pulses were symmetric, no edema or calf tenderness noted. NEUROLOGIC: Patient is awake alert and oriented x3, speech was mildly slurred but at baseline according to significant other. Medical Decision & Procedures ER Provider Diagnostic Interpretation: X-ray results as stated below per interpretation by me and the radiologist. Radiology results as stated below per my review and radiologist interpretation: CHEST ONE VIEW PORTABLE CLINICAL HISTORY: EVALUATE ALTERED MENTAL STATUS/WEAKNESS mental status change COMPARISON STUDY: 01/16/2017 FINDINGS: Operative changes consistent with prior thoracolumbar laminectomy and fusion as well as a left shoulder arthroplasty. Lungs are clear. Diaphragms are smooth. No evidence for cardiac enlargement. IMPRESSION: No acute process. The above report was generated using voice recognition software. It may contain grammatical, syntax or spelling errors. Electronically signed by: Alonso Rivera M.D. 01/18/2017 3:08 PM Dictated Date/Time: 01/18/2017 3:07 PM HEAD WITHOUT CONTRAST (CT) CT DOSE: 537.48 mGy.cm HISTORY: Mental status change EVALUATE ALTERED MENTAL STATUS/WEAKNESS TECHNIQUE: Multiaxial CT images of the head were performed without the use of intravenous contrast. A dose lowering technique was utilized adhering to the principles of ALARA. Comparison: 12/25/2016 Findings: The paranasal sinuses and mastoid air cells are clear. The calvarium and skull base are intact. The ventricles and sulci are within normal limits. There is no mass, hematoma, midline shift, or acute infarct. Impression: No acute intracranial abnormality. The above report was generated using voice recognition software. It may contain grammatical, syntax or spelling errors. Electronically signed by: Alonso Rivera M.D. 01/18/2017 4:02 PM Dictated Date/Time: 01/18/2017 4:01 PM (CHEST FOR PE) ANGIO WITH CT DOSE: 657.07 mGy.cm HISTORY: Chest pain dyspnea TECHNIQUE: Multiaxial CT images of the chest were performed following the intravenous administration of contrast to evaluate the pulmonary arteries. Maximal intensity projection images were also obtained. A dose lowering technique was utilized adhering to the principles of ALARA. COMPARISON STUDY: None. FINDINGS: There is a normal caliber thoracic aorta with no evidence for dissection. There is no evidence for pulmonary embolus. No pleural effusions. No pneumothorax. The liver and spleen are unremarkable. No mediastinal or hilar lymphadenopathy. The central airways are patent. The lungs are clear. Prior gastroplasty. Degenerative and postoperative changes of the thoracic and upper lumbar spine. Moderate esophageal thickening IMPRESSION: No evidence for pulmonary embolus. The lungs are clear. Moderate esophageal wall thickening with evidence for a prior gastroplasty The above report was generated using voice recognition software. It may contain grammatical, syntax or spelling errors. Electronically signed by: Alonso Rivera M.D. 01/18/2017 5:23 PM Dictated Date/Time: 01/18/2017 5:19 PM Laboratory Results 01/18/17 15:10 Red Blood Count 4.07, Mean Corpuscular Volume 95.6, Mean Corpuscular Hemoglobin 31.7, Mean Corpuscular Hemoglobin Concent 33.2, Mean Platelet Volume 8.5, Neutrophils (%) (Auto) 64.2, Lymphocytes (%) (Auto) 25.5, Monocytes (%) (Auto) 8.7, Eosinophils (%) (Auto) 1.0, Basophils (%) (Auto) 0.2, Neutrophils # (Auto) 3.10, Lymphocytes # (Auto) 1.23, Monocytes # (Auto) 0.42, Eosinophils # (Auto) 0.05, Basophils # (Auto) 0.01 01/18/17 15:10 Test 01/18/17 15:10 01/18/17 15:19 01/18/17 15:32 White Blood Count 4.83 K/uL (4.8-10.8) Red Blood Count 4.07 M/uL (4.2-5.4) Hemoglobin 12.9 g/dL (12.0-16.0) Hematocrit 38.9 % (37-47) Mean Corpuscular Volume 95.6 fL (80-100) Mean Corpuscular Hemoglobin 31.7 pg (25-34) Mean Corpuscular Hemoglobin Concent 33.2 g/dl (32-36) Platelet Count 300 K/uL (130-400) Mean Platelet Volume 8.5 fL (7.4-10.4) Neutrophils (%) (Auto) 64.2 % Lymphocytes (%) (Auto) 25.5 % Monocytes (%) (Auto) 8.7 % Eosinophils (%) (Auto) 1.0 % Basophils (%) (Auto) 0.2 % Neutrophils # (Auto) 3.10 K/uL (1.4-6.5) Lymphocytes # (Auto) 1.23 K/uL (1.2-3.4) Monocytes # (Auto) 0.42 K/uL (0.11-0.59) Eosinophils # (Auto) 0.05 K/uL (0-0.5) Basophils # (Auto) 0.01 K/uL (0-0.2) RDW Standard Deviation 49.9 fL (36.4-46.3) RDW Coefficient of Variation 14.2 % (11.5-14.5) Immature Granulocyte % (Auto) 0.4 % Immature Granulocyte # (Auto) 0.02 K/uL (0.00-0.02) Prothrombin Time 10.0 SECONDS (9.0-12.0) Prothromb Time International Ratio 0.9 (0.9-1.1) Activated Partial Thromboplast Time 24.2 SECONDS (21.0-31.0) Partial Thromboplastin Ratio 0.9 D-Dimer 2210 ug/L FEU (0-500) Anion Gap 14.0 mmol/L (3-11) Est Creatinine Clear Calc Drug Dose 81.6 ml/min Estimated GFR () 97.2 Estimated GFR (Non- 83.8 BUN/Creatinine Ratio 12.0 (10-20) Calcium Level 8.5 mg/dl (8.5-10.1) Phosphorus Level 2.2 mg/dl (2.5-4.9) Magnesium Level 2.3 mg/dl (1.8-2.4) Total Bilirubin 0.2 mg/dl (0.2-1) Direct Bilirubin < 0.1 mg/dl (0-0.2) Aspartate Amino Transf (AST/SGOT) 13 U/L (15-37) Alanine Aminotransferase (ALT/SGPT) 13 U/L (12-78) Alkaline Phosphatase 170 U/L (45-117) Total Creatine Kinase 23 U/L (26-192) Creatine Kinase MB 1.0 ng/ml (0.5-3.6) Creatine Kinase MB Ratio 4.3 (0-3.0) Troponin I < 0.015 ng/ml (0-0.045) Pro-B-Type Natriuretic Peptide 186 pg/ml (0-900) Total Protein 5.9 gm/dl (6.4-8.2) Albumin 2.9 gm/dl (3.4-5.0) Lipase 48 U/L (73-393) Thyroid Stimulating Hormone (TSH) 0.256 uIu/ml (0.300-4.500) Free Thyroxine 0.70 ng/dl (0.80-1.60) Bedside Lactic Acid Venous 3.70 mmol/L (0.90-1.70) Urine Color YELLOW Urine Appearance CLEAR (CLEAR) Urine pH 5.5 (4.5-7.5) Urine Specific Ball[place] 1.016 (1.000-1.030) Urine Protein NEG (NEG) Urine Glucose (UA) NEG (NEG) Urine Ketones NEG (NEG) Urine Occult Blood NEG (NEG) Urine Nitrite NEG (NEG) Urine Bilirubin NEG (NEG) Urine Urobilinogen NEG (NEG) Urine Leukocyte Esterase MODERATE (NEG) Urine WBC (Auto) 10-30 /hpf (0-5) Urine RBC (Auto) 0-4 /hpf (0-4) Urine Hyaline Casts (Auto) 1-5 /lpf (0-5) Urine Epithelial Cells (Auto) >30 /lpf (0-5) Urine Bacteria (Auto) NEG (NEG) Laboratory results per my review. Medications Administered Medications (Trade) Dose Ordered Sig/Valente Route Start Time Stop Time Status Last Admin Dose Admin Sodium Chloride 1,000 ml @ 999 mls/hr Q1H1M STAT IV 01/18/17 14:53 01/18/17 15:53 DC 01/18/17 15:17 999 MLS/HR Ondansetron HCl (Zofran Inj) 4 mg NOW STAT IV 01/18/17 14:53 01/18/17 14:55 DC 01/18/17 15:23 4 MG Oxycodone HCl (Roxicodone Immediate Rel Tab) 5 mg NOW STAT PO 01/18/17 14:55 01/18/17 14:56 DC 01/18/17 15:22 5 MG Sodium Chloride 1,000 ml @ 999 mls/hr Q1H1M STAT IV 01/18/17 16:06 01/18/17 17:06 DC 01/18/17 16:23 999 MLS/HR Levofloxacin (Levaquin / D5W) 750 mg NOW STAT IV 01/18/17 16:06 01/18/17 16:08 DC 01/18/17 16:23 750 MG Hydromorphone HCl (Dilaudid Inj) 1 mg NOW STAT IV 01/18/17 16:10 01/18/17 16:11 DC 01/18/17 16:24 1 MG ECG Indication: tachycardia Rate (beats per minute): 120 Rhythm: sinus tachycardia Findings: no ectopy, other (no acute ST segment abnormality) Comparison ECG Date: 16-Jan-2017 Change: no significant change ED Course 1447: The patient was evaluated in room C3. A complete history and physical examination were performed. 1453: Zofran Inj 4 mg IV, NSS 1000 ml @ 999 mls/hr IV. 1455: Oxycodone HCl 5 mg PO. 1606: Levofloxacin 750 mg IV, NSS 1000 ml @ 999 mls/hr IV. 1607: I reevaluated the patient. She is asking for different pain medications. 1610: Dilaudid Inj 1 mg IV. 1740: I [facility] the patient's [facility] The patient will be evaluated for further management. 174: Upon reevaluation, the patient is resting comfortably. I discussed results and treatment plan with her. She verbalizes agreement and understanding. The patient will be evaluated for further management and care. Medical Decision Prior records/ancillary studies reviewed and summarized above. Nursing notes reviewed. Additional history obtained from SO. The patient's history was concerning for weakness. Differential diagnosis: Etiologies such as metabolic, infection, hypo/hyperglycemia, electrolyte abnormalities, cardiac sources, intracerebral event, toxicologic, neurologic, as well as others were entertained. The patient is a 66-year-old female who I briefly taking care of for similar complaints. She was diagnosed with urinary tract infection and states that she has been compliant with her antibiotic but still has signs of urinary tract infection and appears very weak. The patient did not have any focal neurologic deficit. I discussed patient's laboratory and radiographic studies with her. She had tachycardia and an elevated lactic acid. I was also concerned this could represent sequelae from venous thromboembolic disease because the patient' s recent surgery. The patient was treated with IV fluids IV pain medicine and IV anabiotic's. She was reevaluated multiple times. Because the patient's ongoing symptoms I discussed her case with the on-call [facility] hospitalist. They've agreed to evaluate the patient in emergency department for further management and disposition. Medication Reconcilliation Current Medication List: was personally reviewed by me Blood Pressure Screening Patient's blood pressure: Normal blood pressure Blood pressure disposition: Did not require urgent referral Consults Time Called: 1734 Consulting Physician[facility] Return[facility] Call: [phone] I discussed the patient's case with him. The patient will be evaluated for further management. Impression Primary Impression: UTI (urinary tract infection) Additional Impressions: Weakness SIRS (systemic inflammatory response syndrome) Tachycardia Scribe Attestation The scribe's documentation has been prepared under my direction and personally reviewed by me in its entirety. I confirm that the note above accurately reflects all work, treatment, procedures, and medical decision making performed by me. Departure Information Dispostion Being Evaluated By Hospitalist Referrals Conrad Mckeon D.O. (PCP) Patient Instructions My [facility] Problem Qualifiers
--- NOTE | 2017-01-18 17:24 | DIAGNOSTIC IMAGING REPORT ---
(CHEST FOR PE) ANGIO WITH CT DOSE: 657.07 mGy.cm HISTORY: Chest pain dyspnea TECHNIQUE: Multiaxial CT images of the chest were performed following the intravenous administration of contrast to evaluate the pulmonary arteries. Maximal intensity projection images were also obtained. A dose lowering technique was utilized adhering to the principles of ALARA. COMPARISON STUDY: None. FINDINGS: There is a normal caliber thoracic aorta with no evidence for dissection. There is no evidence for pulmonary embolus. No pleural effusions. No pneumothorax. The liver and spleen are unremarkable. No mediastinal or hilar lymphadenopathy. The central airways are patent. The lungs are clear. Prior gastroplasty. Degenerative and postoperative changes of the thoracic and upper lumbar spine. Moderate esophageal thickening IMPRESSION: No evidence for pulmonary embolus. The lungs are clear. Moderate esophageal wall thickening with evidence for a prior gastroplasty The above report was generated using voice recognition software. It may contain grammatical, syntax or spelling errors. Electronically signed by: Alonso Rivera M.D. 01/18/2017 5:23 PM Dictated Date/Time: 01/18/2017 5:19 PM
[2017-01-18] MEDS ORDERED: OPTIRAY 320 IV PRN (17:30)
[2017-01-18 17:56] VITALS: O2SAT 95; Ht 160 cm; Wt 95.8 kg
[2017-01-18 19:43] VITALS: BP 144/95; PULSE 121; TEMP 37.2; O2SAT 96
[2017-01-18] MEDS ORDERED: ONDANSETRON INJ 2 MG/ML 2 ML VIAL IV PRN (19:45)
[2017-01-18] MEDS ORDERED: ACETAMINOPHEN 325 MG TAB PO PRN (19:45)
[2017-01-18] MEDS ORDERED: CEFTRIAXONE SOD INJ 2,000 MG in DEXTROSE 5% 50ML 50 ML IV SCH (20:00)
[2017-01-18] MEDS: SODIUM CHLORIDE 0.9% 1000ML 1,000 ML IV SCH (20:01)
[2017-01-18] MEDS: HYDROmorphone INJ 0.5 MG/0.5 ML SYR IV PRN (20:01)
[2017-01-18] MEDS: LOSARTAN POTASSIUM 50 MG TAB PO SCH (20:59)
[2017-01-18] MEDS: HYDROCODONE/ACETAMOPHEN 5/325MG TAB PO PRN (20:59)
[2017-01-18] MEDS: POT PHOSPHATE MONOBASIC W/ SOD TAB PO SCH (21:00)
[2017-01-18] MEDS: DOXEPIN HCL 50 MG CAP PO SCH (21:00)
[2017-01-18] MEDS: ENOXAPARIN 40 MG/0.4 ML SYR SC SCH (21:00)
[2017-01-18] MEDS: METOCLOPRAMIDE HCL 5 MG TAB PO SCH (21:00)
--- NOTE | 2017-01-18 21:10 | History and Physical ---
History & Physical Date & Time of Service: Jan 18, 2017 at 20:35 Chief Complaint: UTI Primary Care Physician: Conrad Mckeon D.O. History of Present Illness Source: patient, family, clinic records, hospital records 66 year old female with history of recent L shoulder surgery, SVT, DM, HTN, WHEELER, CVA/TIA presenting with persistent urinary symptoms and progressive left shoulder pain. Follows with Dr. Mckeon for PCP and Dr. Fnues for PCP. Patient presented to the ER 2 days ago for urinary symptoms and was given Cephalexin. She has been taking the Cephalexin with no improvement- still having dysuria, frequency, weakness. Patient also reports increasing left shoulder pain for the past week, worse with moving the arm. She then presented to the ER. At the ER, patient seen resting in bed, comfortable, alert, oriented. Denies confusion, slurring of speech. Still having urinary symptoms. Left shoulder pain- around 7/10. No other symptoms. Past Medical/Surgical History Medical Problems: (1) Anxiety Status: Chronic (2) Asthma Status: Chronic (3) C. difficile diarrhea Status: Resolved (4) DM2 (diabetes mellitus, type 2) Status: Chronic (5) GERD (gastroesophageal reflux disease) Status: Chronic (6) Hyperlipidemia Status: Chronic (7) Hypertension Status: Chronic (8) Morbid obesity Status: Chronic (9) Sacral back pain Status: Chronic Surgical Problems: (1) H/O gastric bypass Status: Chronic (2) H/O hernia repair Status: Chronic (3) H/O spinal fusion Status: Chronic (4) History of carpal tunnel surgery Status: Chronic (5) Previous section Status: Resolved (6) S/P appendectomy Status: Chronic (7) S/P cholecystectomy Status: Resolved (8) S/p left shoulder surgery Status: Chronic (9) S/P parathyroidectomy Status: Resolved (10) S/P tonsillectomy and adenoidectomy Status: Chronic (11) Total knee replacement status Status: Resolved Family History Diabetes mellitus Gallbladder disease Heart disease Hypertension Social History Smoking Status: Never Smoker Drug Use: none Marital Status: Housing status: lives with significant other Immunizations History of Influenza Vaccine: Yes Influenza Vaccine Date: Apr 18, 2013 History of Tetanus Vaccine?: Yes History of Pneumococcal: Yes History of Hepatitis B Vaccine: Yes Multi-Drug Resistant Organisms History of MDRO: No Allergies Coded Allergies: Atorvastatin (Verified Allergy, Unknown, myalgias per PCP note , 12/25/16) Rosuvastatin (Unverified Allergy, Unknown, MUSCLE ACHES, 12/25/16) CI Pigment Blue 63 (Verified Adverse Reaction, Mild, PSYCHOSIS, 12/25/16) Duloxetine (Verified Adverse Reaction, Mild, PSYCHOSIS, 12/25/16) Gabapentin (Verified Adverse Reaction, Mild, PSYCHOSIS, 12/25/16) Morphine (Verified Adverse Reaction, Mild, NAUSEA, 12/25/16) NSAIDs (Verified Adverse Reaction, Unknown, s/p bariatric surgery, 12/25/16) per gmg Home Medications Scheduled Biotin ([facility] Biotin), 10 MG PO QAM Clopidogrel Bisulfate (Clopidogrel), 75 MG PO QAM Cyanocobalamin (Cyanocobalamin), 1,000 MCG IM Q3 MONTHS Cyclosporine (Ophth) (Restasis), 1 DROP OPB BID Doxepin Hcl (Sinequan), 50 MG PO BID Lorazepam (Lorazepam), 1 MG PO QAM Losartan Potassium (Cozaar), 100 MG PO DAILY Metoclopramide HCl (Metoclopramide HCl), 5 MG PO BID Metoprolol Succinate (Metoprolol Succinate ER), 12.5 MG PO QAM Pantoprazole (Pantoprazole Sodium), 40 MG PO QAM Pediatric Multiple Vitamin W/ (Multivitamin Gummies Chil), 1 TAB PO QAM Scheduled PRN Albuterol Hfa (Ventolin Hfa), 2 PUFFS INH Q6H PRN for Wheezing Flunisolide (Nasal) (Flunisolide), 2 SPRY SALOMÓN DAILY PRN for Allergy Symptoms Ondansetron (Ondansetron HCl), 8 MG PO UD PRN for Nausea Promethazine HCl (Promethazine HCl), 25 MG PO Q6H PRN for Nausea Review of Systems Constitutional- no fever; no weight loss Eyes- no acute visual changes ENT- no sinus drainage; no pharyngitis Pulmonary- no cough, no wheezing, no shortness of breath Cardiac- no chest pain, no palpitations, no orthopnea, no dependent edema GI- no nausea, no vomiting, no diarrhea, no melena, no hematochezia - (+) as noted above Musculoskeletal- (+) as noted above Derm- no rashes, no new skin lesions, no changing skin lesions Hematologic- no unusual bruising, no unusual bleeding Lymphatics- no adenopathy Endocrine- no polyuria or polydipsia; no heat or cold intolerance Neuro- no headaches, no focal neurologic symptoms Psych- no anxiety, no depression Physical Exam Vital Signs Date Time Temp Pulse Resp B/P (MAP) Pulse Ox O2 Delivery O2 Flow Rate FiO2 01/18/17 19:43 37.2 121 18 144/95 (111) 96 Room Air 01/18/17 18:44 110 20 118/81 95 01/18/17 17:56 95 Room Air 01/18/17 17:01 110 20 118/81 95 Room Air 01/18/17 16:59 109 121/82 110 118/81 01/18/17 16:27 109 20 118/77 93 Room Air 01/18/17 15:06 120 01/18/17 14:43 96 Room Air 01/18/17 14:43 96 Room Air 01/18/17 14:34 36.7 129 18 120/79 96 Room Air General Appearance: WD/WN, no apparent distress Head: normocephalic, atraumatic Eyes: normal inspection, PERRL, EOMI, sclerae normal ENT: normal ENT inspection, hearing grossly normal, pharynx normal Neck: supple, no adenopathy, thyroid normal, no JVD, trachea midline Respiratory/Chest: chest non-tender, lungs clear, normal breath sounds, no respiratory distress, no accessory muscle use Cardiovascular: regular rate, rhythm, no edema, no JVD, no murmur Abdomen/GI: normal bowel sounds, non tender, soft Back: normal inspection, no CVA tenderness Extremities/Musculoskelatal: no calf tenderness, normal capillary refill, no pedal edema, normal range of motion, + pertinent finding (left shoulder- (+) surgical incision - well healed, mild edema and warmth, no tenderness) 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, no motor/sensory deficits, alert, normal mood/affect, oriented x 3 Skin: normal color, warm/dry, no rash Lymphatic: no adenopathy Diagnostics Laboratory Results Results Past 24 Hours Test 01/18/17 14:46 01/18/17 15:10 01/18/17 15:19 01/18/17 15:32 Range/Units Bedside Glucose 134 70-90 mg/dl White Blood Count 4.83 4.8-10.8 K/uL Red Blood Count 4.07 4.2-5.4 M/uL Hemoglobin 12.9 12.0-16.0 g/dL Hematocrit 38.9 37-47 % Mean Corpuscular Volume 95.6 80-100 fL Mean Corpuscular Hemoglobin 31.7 25-34 pg Mean Corpuscular Hemoglobin Concent 33.2 32-36 g/dl Platelet Count 300 130-400 K/uL Mean Platelet Volume 8.5 7.4-10.4 fL Neutrophils (%) (Auto) 64.2 % Lymphocytes (%) (Auto) 25.5 % Monocytes (%) (Auto) 8.7 % Eosinophils (%) (Auto) 1.0 % Basophils (%) (Auto) 0.2 % Neutrophils # (Auto) 3.10 1.4-6.5 K/uL Lymphocytes # (Auto) 1.23 1.2-3.4 K/uL Monocytes # (Auto) 0.42 0.11-0.59 K/uL Eosinophils # (Auto) 0.05 0-0.5 K/uL Basophils # (Auto) 0.01 0-0.2 K/uL RDW Standard Deviation 49.9 36.4-46.3 fL RDW Coefficient of Variation 14.2 11.5-14.5 % Immature Granulocyte % (Auto) 0.4 % Immature Granulocyte # (Auto) 0.02 0.00-0.02 K/uL Prothrombin Time 10.0 9.0-12.0 SECONDS Prothromb Time International Ratio 0.9 0.9-1.1 Activated Partial Thromboplast Time 24.2 21.0-31.0 SECONDS Partial Thromboplastin Ratio 0.9 D-Dimer 2210 0-500 ug/L FEU Sodium Level 142 136-145 mmol/L Potassium Level 3.9 3.5-5.1 mmol/L Chloride Level 106 98-107 mmol/L Carbon Dioxide Level 22 21-32 mmol/L Anion Gap 14.0 3-11 mmol/L Blood Urea Nitrogen 9 7-18 mg/dl Creatinine 0.74 0.60-1.20 mg/dl Est Creatinine Clear Calc Drug Dose 81.6 ml/min Estimated GFR () 97.2 Estimated GFR (Non- 83.8 BUN/Creatinine Ratio 12.0 10-20 Random Glucose 119 70-99 mg/dl Calcium Level 8.5 8.5-10.1 mg/dl Phosphorus Level 2.2 2.5-4.9 mg/dl Magnesium Level 2.3 1.8-2.4 mg/dl Total Bilirubin 0.2 0.2-1 mg/dl Direct Bilirubin < 0.1 0-0.2 mg/dl Aspartate Amino Transf (AST/SGOT) 13 15-37 U/L Alanine Aminotransferase (ALT/SGPT) 13 12-78 U/L Alkaline Phosphatase 170 45-117 U/L Total Creatine Kinase 23 26-192 U/L Creatine Kinase MB 1.0 0.5-3.6 ng/ml Creatine Kinase MB Ratio 4.3 0-3.0 Troponin I < 0.015 0-0.045 ng/ml Pro-B-Type Natriuretic Peptide 186 0-900 pg/ml Total Protein 5.9 6.4-8.2 gm/dl Albumin 2.9 3.4-5.0 gm/dl Lipase 48 73-393 U/L Thyroid Stimulating Hormone (TSH) 0.256 0.300-4.500 uIu/ml Free Thyroxine 0.70 0.80-1.60 ng/dl Bedside Lactic Acid Venous 3.70 0.90-1.70 mmol/L Urine Color YELLOW Urine Appearance CLEAR CLEAR Urine pH 5.5 4.5-7.5 Urine Specific [place] 1.016 1.000-1.030 Urine Protein NEG NEG Urine Glucose (UA) NEG NEG Urine Ketones NEG NEG Urine Occult Blood NEG NEG Urine Nitrite NEG NEG Urine Bilirubin NEG NEG Urine Urobilinogen NEG NEG Urine Leukocyte Esterase MODERATE NEG Urine WBC (Auto) 10-30 0-5 /hpf Urine RBC (Auto) 0-4 0-4 /hpf Urine Hyaline Casts (Auto) 1-5 0-5 /lpf Urine Epithelial Cells (Auto) >30 0-5 /lpf Urine Bacteria (Auto) NEG NEG Test 01/18/17 19:57 Range/Units Microbiology Results 01/18/17 Blood Culture, Received Pending 01/18/17 Blood Culture, Received Pending 01/18/17 Urine Culture, Received Pending Diagnostic Radiology (CHEST FOR PE) ANGIO WITH CT DOSE: 657.07 mGy.cm HISTORY: Chest pain dyspnea TECHNIQUE: Multiaxial CT images of the chest were performed following the intravenous administration of contrast to evaluate the pulmonary arteries. Maximal intensity projection images were also obtained. A dose lowering technique was utilized adhering to the principles of ALARA. COMPARISON STUDY: None. FINDINGS: There is a normal caliber thoracic aorta with no evidence for dissection. There is no evidence for pulmonary embolus. No pleural effusions. No pneumothorax. The liver and spleen are unremarkable. No mediastinal or hilar lymphadenopathy. The central airways are patent. The lungs are clear. Prior gastroplasty. Degenerative and postoperative changes of the thoracic and upper lumbar spine. Moderate esophageal thickening IMPRESSION: No evidence for pulmonary embolus. The lungs are clear. Moderate esophageal wall thickening with evidence for a prior gastroplasty EKG sinus tachycardia, HR 120 Impression Assessment and Plan 66 year old female with history of recent L shoulder surgery, SVT, DM, HTN, WHEELER, CVA/TIA presenting with persistent urinary symptoms and progressive left shoulder pain. GRAM NEGATIVE BACILLI UTI - no improvement with PO Cephalexin - urine culture 01/16/17: gram negative bacilli - ordered blood cultures empiric Ceftriaxone 2g IV based on previous cultures growing e coli IV fluids LOW PH - replace with PO Ph ELEVATED LACTIC ACID - repeat pending LOW TSH AND T4 - likely sick euthyroid syndrome ELEVATED D DIMER CT chest negative chest Doppler of Left arm and Legs LEFT SHOULDER PAIN S/P LEFT SHOULDER SURGERY- REVISION, ANTIBIOTIC BEAD PLACEMENT 12/19/16 - no signs of infection at this time - will consult Surgery - per patient, Nucynta not working at all will give [place] q6h and Dilaudid q12h patient has history of altered mental status likely from pain medications will consult Pain management SVT History - on Metoprolol DM - diet controlled HTN - continue Losartan WHEELER S/P GASTRIC BYPASS - no GI symptoms ANXIETY - Ativan 0.5mg po daily NEUROPATHY - on Doxepine DVT prophylaxis - Lovenox Full code per patient Dispo pending will need PT/OT evals usually lives at home with her Advanced Directives Existing Living Will: Yes 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 Y/N: Yes Risk Level: Moderate Given or contraindicated: Enoxaparin (Lovenox)SQ
[2017-01-18] MEDS ORDERED: HYDROCODONE/ACETAMOPHEN 5/325MG TAB PO ONE (22:35)
[2017-01-18 23:29] VITALS: BP 124/80; PULSE 82; TEMP 36.9; O2SAT 91
[2017-01-19] MEDS: HYDROCODONE/ACETAMOPHEN 5/325MG TAB PO PRN (03:22)
[2017-01-19 04:29] VITALS: BP 106/73; PULSE 85; TEMP 36.8; O2SAT 93
[2017-01-19] MEDS: SODIUM CHLORIDE 0.9% 1000ML 1,000 ML IV SCH ×2 (05:43→15:55)
[2017-01-19 06:21] LABS: BASO % 0.2 %; BASO ABS # 0.01 K/uL (0-0.2); COMPLETE YES; EOS % 1.9 %; HEMATOCRIT 35.5 % (37-47); IG% 0.2 %; LYMPH % 36.8 %; LYMPH ABS # 1.53 K/uL (1.2-3.4); MEAN CELL VOLUME 97.5 fL (80-100); MEAN CORPUSCULAR HEMOGLOBIN 31.6 pg (25-34); MEAN CORPUSCULAR HGB CONC 32.4 g/dl (32-36); MEAN PLATELET VOLUME 8.2 fL (7.4-10.4); MONO % 10.6 %; NEUT % 50.3 %; PLATELET COUNT 237 K/uL (130-400); RED BLOOD COUNT 3.64 M/uL (4.2-5.4); WHITE BLOOD COUNT 4.16 K/uL (4.8-10.8)
[2017-01-19 06:54] LABS: BLOOD UREA NITROGEN 6 mg/dl (7-18); BUN/CREATININE RATIO 7.2 (10-20); CALCIUM 8.2 mg/dl (8.5-10.1); CARBON DIOXIDE 26 mmol/L (21-32); CHLORIDE 108 mmol/L (98-107); CREATININE 0.81 mg/dl (0.60-1.20); GLUCOSE 106 mg/dl (70-99); PHOSPHORUS 3.6 mg/dl (2.5-4.9); SODIUM 142 mmol/L (136-145)
[2017-01-19 07:36] VITALS: BP 136/71; PULSE 83; TEMP 37.2; O2SAT 96
[2017-01-19] MEDS: LORAZEPAM 0.5 MG TAB PO SCH (08:35)
[2017-01-19] MEDS: DOXEPIN HCL 50 MG CAP PO SCH ×2 (08:36→20:41)
[2017-01-19] MEDS: POT PHOSPHATE MONOBASIC W/ SOD TAB PO SCH ×4 (08:36→20:39)
[2017-01-19] MEDS: LOSARTAN POTASSIUM 50 MG TAB PO SCH ×2 (08:36→20:40)
--- NOTE | 2017-01-19 08:36 | DIAGNOSTIC IMAGING REPORT ---
LEFT UPPER EXTREMITY VENOUS DOPPLER HISTORY: Left arm pain. Recent left shoulder surgery. COMPARISON STUDY: None. FINDINGS: The left internal jugular vein is patent. There is normal flow within the left subclavian vein. There is normal flow and compressibility within the left axillary, basilic, brachial, radial, ulnar, and visualized cephalic veins. Small sliver fluid deep to the subcutaneous fat. This is deep to the incision site and favors postoperative change. There is also a 3.9 x 3.3 x 1.6 cm cystic focus within the left axilla. IMPRESSION: No DVT within the left upper extremity. Small sliver of fluid deep to the incision site at the shoulder consistent with postoperative change. There is also a nonspecific 3.9 x 3.3 x 1.6 cm cystic focus within the left axilla. This may also represent recent postoperative change. Electronically signed by: Davidson Mann M.D. 01/19/2017 8:34 AM Dictated Date/Time: 01/19/2017 8:32 AM
[2017-01-19] MEDS: FLINTSTONES COMPLETE CHEWABLE TAB PO SCH (08:37)
[2017-01-19] MEDS: CLOPIDOGREL BISULFATE 75 MG TAB PO SCH (08:37)
[2017-01-19] MEDS: PANTOprazole SOD 40 MG TAB PO SCH (08:37)
[2017-01-19] MEDS: METOPROLOL SUCC 25MG EXT REL TAB PO SCH (08:38)
[2017-01-19] MEDS: METOCLOPRAMIDE HCL 5 MG TAB PO SCH ×2 (08:38→20:40)
[2017-01-19] MEDS: HYDROmorphone INJ 0.5 MG/0.5 ML SYR IV PRN ×2 (08:40→17:27)
--- NOTE | 2017-01-19 08:49 | Pain Management Consultation ---
Pain Management Consultation Date of Consultation Jan 19, 2017. History Went to see this patient on rounds this morning. She was not in her room as she was in radiology for testing. Case and suggestions were reviewed with Dr. Aguilar. Will make attempts to see the patient later today or on rounds tomorrow. Family History Diabetes mellitus Gallbladder disease Heart disease Hypertension Social / Work History Marital Status: Housing Status: lives with significant other Allergies Coded Allergies: Atorvastatin (Verified Allergy, Unknown, myalgias per PCP note , 12/25/16) Rosuvastatin (Unverified Allergy, Unknown, MUSCLE ACHES, 12/25/16) CI Pigment Blue 63 (Verified Adverse Reaction, Mild, PSYCHOSIS, 12/25/16) Duloxetine (Verified Adverse Reaction, Mild, PSYCHOSIS, 12/25/16) Gabapentin (Verified Adverse Reaction, Mild, PSYCHOSIS, 12/25/16) Morphine (Verified Adverse Reaction, Mild, NAUSEA, 12/25/16) NSAIDs (Verified Adverse Reaction, Unknown, s/p bariatric surgery, 12/25/16) per gmg Medications Current Inpatient Medications Medications (Trade) Dose Ordered Sig/Valente Route Start Time Stop Time Status Last Admin Dose Admin Ioversol (Optiray 320) 100 ml UD PRN IV 01/18/17 17:30 01/22/17 17:29 Ceftriaxone Sodium 2000 mg/ Dextrose 70 ml @ 100 mls/hr DAILY@2000 IV 01/18/17 20:00 01/28/17 19:59 01/18/17 20:01 100 MLS/HR Potassium/ Phosphorus/Sodium (Phospha 250 Neutral 155-852-130 Mg) 1 tab QID PO 01/18/17 21:00 02/17/17 20:59 01/19/17 08:36 1 TAB Sodium Chloride 1,000 ml @ 100 mls/hr Q10H IV 01/18/17 19:30 02/17/17 19:29 01/19/17 05:43 100 MLS/HR Acetaminophen/ Hydrocodone Bitart ([place] 5/325 Tab) 1 tab Q6H PRN PO 01/18/17 19:30 02/01/17 19:29 01/19/17 03:22 1 TAB Hydromorphone HCl (Dilaudid Inj) 0.5 mg Q12H PRN IV 01/18/17 19:30 02/01/17 19:29 01/19/17 08:40 0.5 MG Clopidogrel Bisulfate (plAVix TAB) 75 mg QAM PO 01/19/17 09:00 02/18/17 08:59 01/19/17 08:37 75 MG Doxepin HCl (Sinequan Cap) 50 mg BID PO 01/18/17 21:00 02/17/17 20:59 01/19/17 08:36 50 MG Lorazepam (Ativan Tab) 0.5 mg QAM PO 01/19/17 09:00 02/18/17 08:59 01/19/17 08:35 0.5 MG Losartan Potassium (coZAAR TAB) 50 mg BID PO 01/18/17 21:00 02/17/17 20:59 01/19/17 08:36 50 MG Metoclopramide HCl (Reglan Tab) 5 mg BID PO 01/18/17 21:00 02/17/17 20:59 01/19/17 08:38 5 MG Metoprolol Succinate (Toprol Xl Tab) 12.5 mg QAM PO 01/19/17 09:00 02/18/17 08:59 01/19/17 08:38 12.5 MG Pantoprazole Sodium (Protonix Tab) 40 mg QAM PO 01/19/17 09:00 02/18/17 08:59 01/19/17 08:37 40 MG Miscellaneous Information (Order Awaiting Action) 1 ea QS N/A 01/19/17 00:00 02/18/17 00:00 Miscellaneous Information (Order Awaiting Action) 1 ea QS N/A 01/19/17 00:00 02/18/17 00:00 Multivitamins (Flintstones Complete Tab) 1 tab QAM PO 01/19/17 09:00 02/18/17 08:59 01/19/17 08:37 1 TAB Enoxaparin Sodium (Lovenox Inj) 40 mg DAILY@2000 SC 01/18/17 20:00 02/17/17 19:59 01/18/17 21:00 40 MG Acetaminophen (Tylenol Tab) 650 mg Q4H PRN PO 01/18/17 19:45 02/17/17 19:44 Ondansetron HCl (Zofran Inj) 4 mg Q6H PRN IV 01/18/17 19:45 02/17/17 19:44 01/19/17 01:41 4 MG Physical Exam Height & Weight: Height 5 feet, 3.00 inches. Weight 95.800 (Kilograms) 211 (Pounds) Last Vital Signs Documentation Date Time Temp Pulse Resp B/P (MAP) Pulse Ox O2 Delivery O2 Flow Rate FiO2 01/19/17 07:36 37.2 83 16 136/71 (92) 96 Room Air Laboratory Laboratory Results (Last CBC): 01/19/17 06:08 Red Blood Count 3.64 L, Mean Corpuscular Volume 97.5, Mean Corpuscular Hemoglobin 31.6, Mean Corpuscular Hemoglobin Concent 32.4, Mean Platelet Volume 8.2, Neutrophils (%) (Auto) 50.3, Lymphocytes (%) (Auto) 36.8, Monocytes (%) ( Auto) 10.6, Eosinophils (%) (Auto) 1.9, Basophils (%) (Auto) 0.2, Neutrophils # (Auto) 2.09, Lymphocytes # (Auto) 1.53, Monocytes # (Auto) 0.44, Eosinophils # ( Auto) 0.08, Basophils # (Auto) 0.01
[2017-01-19] MEDS: HYDROCODONE/ACETAMINOPHEN 7.5/325MG TAB PO PRN ×2 (10:56→20:48)
[2017-01-19] MEDS: CEFEPIME IV 1,000 MG in DEXTROSE 5% 100ML 100 ML IV SCH ×2 (11:02→22:17)
[2017-01-19 12:30] VITALS: BP 118/80; PULSE 97; TEMP 37.2; O2SAT 95
--- NOTE | 2017-01-19 13:21 | ORTHOPEDIC CONSULTATION REPORT ---
DATE OF CONSULTATION: 01/19/2017 REASON FOR CONSULT: Left shoulder pain. HISTORY OF PRESENT ILLNESS: The patient is a 66-year-old white female, known to our practice, who is status post left reverse total shoulder arthroplasty by Dr. Funes on 12/19/2016. The patient was progressing with her recovery; however, was admitted on 12/25/2016 for altered mental status, which in turn was felt to be secondary to pain medications and was discharged to home on 27 of December. Since that time, she states that she has been trying to limit her activities, although it has been difficult for her because she wants to do more with the shoulder than is related allowed. Currently, she does not have a sling on. She states that she did not even really feel that she had had urinary tract infection, but came into the Emergency Room on 16 of January for nausea and generalized weakness. She was found to have a pseudomonas UTI and at that time, she was sent home with p.o. Keflex prior to results of the urine culture. She returned last night, complaining of the same symptoms and she was thusly admitted for further care. She was complaining of shoulder pain at that time and we were consulted to see the patient for her left shoulder. PAST MEDICAL HISTORY: Anxiety, asthma, history of C. diff in the past, diabetes mellitus type 2, GERD, hyperlipidemia, hypertension, morbid obesity, and sacral back pain. PAST SURGICAL HISTORY: Gastric bypass, herniorrhaphy, spinal fusion, carpal tunnel release, appendectomy, cholecystectomy, above noted left reverse shoulder arthroplasty which was a revision of her primary, parathyroidectomy, tonsillectomy and adenoidectomy, and total knee replacements in the past. FAMILY HISTORY: Diabetes mellitus, cholelithiasis, heart disease, and hypertension. SOCIAL HISTORY: The patient is a nonsmoker. She does not drink alcohol and is . MEDICATIONS: Biotin 10 mg p.o. q.a.m., clopidogrel 75 mg p.o. q.a.m., cyanocobalamin 1000 mcg IM q. 3 months, cyclosporine 1 drop opb b.i.d., doxepin 50 mg p.o. b.i.d., lorazepam 1 mg p.o. q.a.m., losartan potassium 100 mg p.o. q. daily, metoclopramide 5 mg p.o. b.i.d., metoprolol extended release 12.5 mg p.o. q.a.m., pantoprazole 40 mg p.o. q.a.m., pediatric multivitamin 1 tab p.o. q.a.m., albuterol HFA 2 puffs inhaled q. 6 hours p.r.n., flunisolide 2 sprays nasally daily p.r.n., Zofran 8 mg p.o. p.r.n. nausea and promethazine 25 mg p.o. q. 6 hours p.r.n. nausea. REVIEW OF SYSTEMS: As per admitting history and physical. PHYSICAL EXAMINATION: VITAL SIGNS: Today showed temperature 37.2, pulse 83, respirations 16, BP 136/71, and pulse ox 96% on room air. GENERAL: On entering the room, the patient is awake and alert and oriented to person, place and time. She appears comfortable and is in a pleasant mood and is cooperative. She has no overt complaints at this time and is hoping to go home today. EXTREMITIES: Focusing the exam on the left shoulder, she has a well-healed scar from her recent surgery a month ago. She has a slight amount of increased heat to the left shoulder compared to the right, but is not overtly so. There is no overt erythema or swelling noted at this time. She has some mild tenderness over the acromion. There is no fluid collection that I can feel and there is no crepitus or obvious discrepancies that I can noted over the acromion itself. She has some mild tenderness over the incision itself, but is not overtly painful. She has no tenderness below the shoulder going down the humerus to the elbow and no tenderness of the forearm into the hand or fingers. She is moving all the fingers of her left hand quite well and has good sensation. Capillary refill is less than 2 seconds. I can take the arm gently and do passive range of motion with the left shoulder without the patient being in any real type of pain. She states that it feels sore, but otherwise is not excruciatingly painful. ASSESSMENT: Left shoulder discomfort, status post a left revision reverse total shoulder arthroplasty approximately 4 weeks out. PLAN: At this time, I do not feel that the shoulder has an infection in it. I do not feel the need for aspiration. The patient has alluded to me that she has probably been doing more with the shoulder than she should be doing because she is getting tired of not doing physical therapy and would like to be doing more with her shoulder. At one point, she does a forward flexion arm raise to approximately 90 degrees and then tells me, "I can do this, but I should not be doing it from my understanding." I agreed with her and stated that "yes, you should not be doing any overt active range of motion at this time with the shoulder until approved by Dr. Funes." I think part of her increased shoulder pain is likely due to her increased activity with her left shoulder. At this time, with the shoulder moving quite well through range of motion, I do not believe shoulder film is warranted at this time. I will discuss this case with Dr. Funes. If he feels any further films, etc. needed, we will order him at that time. In discussing the case with Dr. Fishman, it is felt that she has been possibly missmanaging her narcotics at home, which she had actually told me that she has been taken 4-5 Nucynta at one time because it really was not helping her. Dr. Fishman has consulted Dr. Woods, who will see the patient a bit later today or tomorrow morning and get her on a pain regimen that she achieve adequate pain control without any side effects that would cause her problems at home. VASYL
[2017-01-19 15:07] VITALS: BP 145/86; PULSE 80; TEMP 37.2; O2SAT 94
--- NOTE | 2017-01-19 17:24 | Progress Note ---
Medicine Progress Note Date & Time of Visit: Jan 19, 2017 at 17:15. Subjective patient seen resting in bed feels somewhat improved compared to yesterday denies confusion no nausea, chills, abdominal pain has significant left shoulder pain, no weakness/paresthesias Objective Last 8 Hrs Date Time Temp Pulse Resp B/P (MAP) Pulse Ox O2 Delivery O2 Flow Rate FiO2 01/19/17 15:07 37.2 80 18 145/86 (105) 94 Room Air 01/19/17 13:30 Room Air 01/19/17 12:30 37.2 97 20 118/80 (93) 95 Room Air Physical Exam: General- oriented x 3, not in distress, speaks in sentences with no effort Eyes- EOMI, anicteric Neck- supple, no JVD Lungs- clear breath sounds bilaterally Heart- regular rhythm; no murmur, normal rate Abdomen- normal bowel sounds, soft, nontender Extremities- no pretibial edema, no calf tenderness; peripheral pulses intact left shoulder- mild edema, no warmth, mild tenderness Neuro- alert, oriented x 3; no gross focal deficits Skin- warm & dry Laboratory Results: Last 24 Hours Test 01/18/17 19:57 01/18/17 20:42 01/19/17 06:08 01/19/17 07:05 Lactic Acid Level 2.6 mmol/L 1.5 mmol/L Bedside Glucose 149 mg/dl White Blood Count 4.16 K/uL Red Blood Count 3.64 M/uL Hemoglobin 11.5 g/dL Hematocrit 35.5 % Mean Corpuscular Volume 97.5 fL Mean Corpuscular Hemoglobin 31.6 pg Mean Corpuscular Hemoglobin Concent 32.4 g/dl Platelet Count 237 K/uL Mean Platelet Volume 8.2 fL Neutrophils (%) (Auto) 50.3 % Lymphocytes (%) (Auto) 36.8 % Monocytes (%) (Auto) 10.6 % Eosinophils (%) (Auto) 1.9 % Basophils (%) (Auto) 0.2 % Neutrophils # (Auto) 2.09 K/uL Lymphocytes # (Auto) 1.53 K/uL Monocytes # (Auto) 0.44 K/uL Eosinophils # (Auto) 0.08 K/uL Basophils # (Auto) 0.01 K/uL RDW Standard Deviation 51.9 fL RDW Coefficient of Variation 14.5 % Immature Granulocyte % (Auto) 0.2 % Immature Granulocyte # (Auto) 0.01 K/uL Sodium Level 142 mmol/L Potassium Level mmol/L 4.0 mmol/L Chloride Level 108 mmol/L Carbon Dioxide Level 26 mmol/L Anion Gap 8.0 mmol/L Blood Urea Nitrogen 6 mg/dl Creatinine 0.81 mg/dl Est Creatinine Clear Calc Drug Dose 74.6 ml/min Estimated GFR () 87.1 Estimated GFR (Non- 75.2 BUN/Creatinine Ratio 7.2 Random Glucose 106 mg/dl Calcium Level 8.2 mg/dl Phosphorus Level 3.6 mg/dl Date/Time Source Procedure Growth Status 01/18/17 19:58 Blood Blood Culture Pending Received 01/18/17 19:57 Blood Blood Culture Pending Received Assessment & Plan 66 year old female with history of recent L shoulder surgery, SVT, DM, HTN, WHEELER, CVA/TIA presenting with persistent urinary symptoms and progressive left shoulder pain. PSEUDOMONAS UTI - no improvement with PO Cephalexin - urine culture 01/16/17: pansensitive Pseudomonas - blood cultures: pending - change Ceftriaxone to Cefepime IV Day 1 IV fluids LEFT SHOULDER PAIN S/P LEFT SHOULDER SURGERY- REVISION, ANTIBIOTIC BEAD PLACEMENT 12/19/16 - no signs of infection at this time - Ortho consulted, no further intervention at this point advised to avoid using left arm/shoulder - per patient, Nucynta not working at all will give [place] q6h and Dilaudid q8h patient has history of altered mental status likely from pain medications consulted Pain management LOW PH - replace with PO Ph - Ph improved ELEVATED LACTIC ACID - resolved LOW TSH AND T4 - likely sick euthyroid syndrome ELEVATED D DIMER CT chest negative Doppler of Left arm: negative - likely from recent left shoulder surgery SVT History - on Metoprolol DM - diet controlled HTN - continue Losartan WHEELER S/P GASTRIC BYPASS - no GI symptoms ANXIETY - Ativan 0.5mg po daily NEUROPATHY - on Doxepine DVT prophylaxis - Lovenox Full code per patient Dispo pending will need PT/OT evals usually lives at home with her Advanced Directives Existing Living Will: Yes Existing Power of Etched Circuit Processor: Yes (ENEDELIA ) VTE Prophylaxis VTE Risk Assessment Done? Y/N: Yes Risk Level: Moderate Given or contraindicated: Enoxaparin (Lovenox)SQ Current Inpatient Medications: Current Inpatient Medications Medications (Trade) Dose Ordered Sig/Valente Route Start Time Stop Time Status Last Admin Dose Admin Ioversol (Optiray 320) 100 ml UD PRN IV 01/18/17 17:30 01/22/17 17:29 Potassium/ Phosphorus/Sodium (Phospha 250 Neutral 155-852-130 Mg) 1 tab QID PO 01/18/17 21:00 02/17/17 20:59 01/19/17 12:58 1 TAB Sodium Chloride 1,000 ml @ 100 mls/hr Q10H IV 01/18/17 19:30 02/17/17 19:29 01/19/17 15:55 100 MLS/HR Clopidogrel Bisulfate (plAVix TAB) 75 mg QAM PO 01/19/17 09:00 02/18/17 08:59 01/19/17 08:37 75 MG Doxepin HCl (Sinequan Cap) 50 mg BID PO 01/18/17 21:00 02/17/17 20:59 01/19/17 08:36 50 MG Lorazepam (Ativan Tab) 0.5 mg QAM PO 01/19/17 09:00 02/18/17 08:59 01/19/17 08:35 0.5 MG Losartan Potassium (coZAAR TAB) 50 mg BID PO 01/18/17 21:00 02/17/17 20:59 01/19/17 08:36 50 MG Metoclopramide HCl (Reglan Tab) 5 mg BID PO 01/18/17 21:00 02/17/17 20:59 01/19/17 08:38 5 MG Metoprolol Succinate (Toprol Xl Tab) 12.5 mg QAM PO 01/19/17 09:00 02/18/17 08:59 01/19/17 08:38 12.5 MG Pantoprazole Sodium (Protonix Tab) 40 mg QAM PO 01/19/17 09:00 02/18/17 08:59 01/19/17 08:37 40 MG Miscellaneous Information (Order Awaiting Action) 1 ea QS N/A 01/19/17 00:00 02/18/17 00:00 Miscellaneous Information (Order Awaiting Action) 1 ea QS N/A 01/19/17 00:00 02/18/17 00:00 Multivitamins (Flintstones Complete Tab) 1 tab QAM PO 01/19/17 09:00 02/18/17 08:59 01/19/17 08:37 1 TAB Enoxaparin Sodium (Lovenox Inj) 40 mg DAILY@2000 SC 01/18/17 20:00 02/17/17 19:59 01/18/17 21:00 40 MG Acetaminophen (Tylenol Tab) 650 mg Q4H PRN PO 01/18/17 19:45 02/17/17 19:44 Ondansetron HCl (Zofran Inj) 4 mg Q6H PRN IV 01/18/17 19:45 02/17/17 19:44 01/19/17 01:41 4 MG Hydromorphone HCl (Dilaudid Inj) 0.5 mg Q8H PRN IV 01/19/17 15:30 02/01/17 19:29 Acetaminophen/ Hydrocodone Bitart ([place] 7.5/325 Tab) 1 tab Q6H PRN PO 01/19/17 09:00 02/02/17 08:59 01/19/17 10:56 1 TAB Cefepime HCl 1000 mg/Dextrose 111.3 ml @ 200 mls/hr Q12H IV 01/19/17 10:30 01/29/17 10:29 01/19/17 11:02 200 MLS/HR
[2017-01-19] MEDS: ENOXAPARIN 40 MG/0.4 ML SYR SC SCH (20:39)
[2017-01-19 23:25] VITALS: BP 145/83; PULSE 80; TEMP 36.7; O2SAT 93
[2017-01-20] MEDS: HYDROmorphone INJ 0.5 MG/0.5 ML SYR IV PRN ×2 (02:51→11:24)
[2017-01-20] MEDS: SODIUM CHLORIDE 0.9% 1000ML 1,000 ML IV SCH (03:48)
[2017-01-20 06:54] LABS: BASO % 0.3 %; BASO ABS # 0.01 K/uL (0-0.2); COMPLETE YES; EOS % 3.5 %; HEMATOCRIT 34.5 % (37-47); IG% 0.3 %; LYMPH ABS # 1.16 K/uL (1.2-3.4); MEAN CELL VOLUME 96.6 fL (80-100); MEAN CORPUSCULAR HEMOGLOBIN 31.4 pg (25-34); MEAN CORPUSCULAR HGB CONC 32.5 g/dl (32-36); MEAN PLATELET VOLUME 8.4 fL (7.4-10.4); NEUT % 49.9 %; PLATELET COUNT 227 K/uL (130-400); RED BLOOD COUNT 3.57 M/uL (4.2-5.4); WHITE BLOOD COUNT 3.41 K/uL (4.8-10.8)
[2017-01-20 07:18] LABS: BUN/CREATININE RATIO 7.5 (10-20); CREATININE 0.6 mg/dl (0.60-1.20); POTASSIUM 3.7 mmol/L (3.5-5.1)
[2017-01-20 07:39] VITALS: BP 146/86; PULSE 66; TEMP 37; O2SAT 95
--- NOTE | 2017-01-20 07:47 | Progress Note ---
Orthopedic SOAP Note Subjective Date of Service: Jan 20, 2017. Additional Notes: having night pain only Problem List Medical Problems: (1) Ambulatory dysfunction Status: Acute (2) Anemia Status: Acute (3) Chronic left shoulder pain Status: Acute (4) Chronic low back pain Status: Acute (5) Confusion Status: Acute (6) Dehydration Status: Acute (7) Dizziness Status: Acute (8) Dizziness Status: Acute (9) Dizziness, nonspecific Status: Acute (10) Epigastric abdominal pain Status: Acute (11) Headache Status: Acute (12) Hypertensive urgency Status: Acute (13) Nausea Status: Acute (14) Nausea & vomiting Status: Acute (15) Neck mass Status: Acute (16) Polypharmacy Status: Acute (17) Radiating chest pain Status: Acute (18) SIRS (systemic inflammatory response syndrome) Status: Acute (19) Slurred speech Status: Acute (20) Tachycardia Status: Acute (21) TIA (transient ischemic attack) Status: Acute (22) Viral syndrome Status: Acute (23) Weakness Status: Acute Objective shoulder clinically located with smooth rom benign incision Date Time Temp Pulse Resp B/P (MAP) Pulse Ox O2 Delivery O2 Flow Rate FiO2 01/20/17 07:39 37.0 66 14 146/86 (106) 95 Room Air 01/19/17 23:25 36.7 80 16 145/83 (103) 93 Room Air 01/19/17 23:20 Room Air 01/19/17 16:00 Room Air 01/19/17 15:07 37.2 80 18 145/86 (105) 94 Room Air 01/19/17 13:30 Room Air 01/19/17 12:30 37.2 97 20 118/80 (93) 95 Room Air 01/19/17 08:00 Room Air Laboratory Results 24 Hours: Test 01/20/17 06:06 White Blood Count 3.41 K/uL Red Blood Count 3.57 M/uL Hemoglobin 11.2 g/dL Hematocrit 34.5 % Mean Corpuscular Volume 96.6 fL Mean Corpuscular Hemoglobin 31.4 pg Mean Corpuscular Hemoglobin Concent 32.5 g/dl Platelet Count 227 K/uL Mean Platelet Volume 8.4 fL Neutrophils (%) (Auto) 49.9 % Lymphocytes (%) (Auto) 34.0 % Monocytes (%) (Auto) 12.0 % Eosinophils (%) (Auto) 3.5 % Basophils (%) (Auto) 0.3 % Neutrophils # (Auto) 1.70 K/uL Lymphocytes # (Auto) 1.16 K/uL Monocytes # (Auto) 0.41 K/uL Eosinophils # (Auto) 0.12 K/uL Basophils # (Auto) 0.01 K/uL Assessment s/p revision of tsa to reversed tsa due to rotator cuff tear and loosening Plan discussed activity modification limited use with arm in front of body no external rotation beyond handshake position and no raising above chest level for now ,will xray at 6 weeks postop and schedule PT then. limit strong narcotics due to confusion hx when on narcotics
[2017-01-20 07:58] VITALS: O2SAT 95
[2017-01-20] MEDS: FLINTSTONES COMPLETE CHEWABLE TAB PO SCH (09:00)
[2017-01-20] MEDS: POT PHOSPHATE MONOBASIC W/ SOD TAB PO SCH ×2 (09:00→12:47)
[2017-01-20] MEDS: DOXEPIN HCL 50 MG CAP PO SCH (09:04)
[2017-01-20] MEDS: HYDROCODONE/ACETAMINOPHEN 7.5/325MG TAB PO PRN ×2 (09:04→18:00)
[2017-01-20] MEDS: CLOPIDOGREL BISULFATE 75 MG TAB PO SCH (09:04)
[2017-01-20] MEDS: PANTOprazole SOD 40 MG TAB PO SCH (09:05)
[2017-01-20] MEDS: METOCLOPRAMIDE HCL 5 MG TAB PO SCH (09:05)
[2017-01-20] MEDS: METOPROLOL SUCC 25MG EXT REL TAB PO SCH (09:05)
[2017-01-20] MEDS: LOSARTAN POTASSIUM 50 MG TAB PO SCH (09:06)
[2017-01-20] MEDS: LORAZEPAM 0.5 MG TAB PO SCH (09:11)
--- NOTE | 2017-01-20 09:16 | Consultant Recommendations ---
Quality Assurance Practice Manager Recommendations Date of Service Jan 20, 2017. Quality Assurance Practice Manager Recommendations Dr Funes discussed activity modification this AM with patient. Limited use with arm in front of body no external rotation beyond handshake position and no raising above chest level for now ,will xray at 6 weeks postop and schedule PT then. limit strong narcotics due to confusion hx when on narcotics
[2017-01-20] MEDS: CEFEPIME IV 1,000 MG in DEXTROSE 5% 100ML 100 ML IV SCH (11:23)
--- NOTE | 2017-01-20 12:21 | Pain Management Consultation ---
Pain Management Consultation Date of Consultation Jan 20, 2017. Reason for Consultation Left shoulder pain Pain Location 1 - 2 - History Raul Valdes is a 66 yr old female admitted due to confusion with use of opiates s/p left reverse shoulder procedure. She reports expressing chronic left shoulder pain and has undergone previous left total shoulder procedure. She was experiencing persistent pain and underwent a second surgery in November 2016. She has been using oxycodone, long-acting and short-acting preparations, for approximately one-year duration prior to her recent shoulder surgery. She was experiencing persistent pain and because of confusion with the long-acting oxycodone short acting oxycodone, reports that she took inappropriate amount of the oxycodone resulting in confusion and visits to the emergency room. Today she reports experiencing pain from the left neck across the anterior lateral shoulder all the way to the thumb intermittently. She reports her shoulder pain is initiated by any movement of the left shoulder and with active and passive range of motion. She denies any spontaneous pain. Pain is described a sharp and stabbing and episodic. He rates the pain as 8/10 when severe and 2/10 when minimal. She also reports experiencing peripheral neuropathy in the both lower extremities after undergoing lumbar spine surgery. She reports use of doxepin and oxycodone with moderate efficacy for her postlaminectomy symptoms in the lower extremity. As inpatient, she has been using IV hydromorphone as well as oxycodone. She is reluctant to discontinue use of IV hydromorphone. Past Medical/Surgical History (1) SIRS (systemic inflammatory response syndrome) (2) UTI (urinary tract infection) (3) DM2 (diabetes mellitus, type 2) (4) Asthma (5) Morbid obesity (6) Hyperlipidemia (7) GERD (gastroesophageal reflux disease) (8) Anxiety (9) Hypertension (10) H/O spinal fusion (11) Previous section (12) S/P cholecystectomy (13) S/P parathyroidectomy (14) Total knee replacement status (15) S/p left shoulder surgery (16) S/P appendectomy (17) History of carpal tunnel surgery (18) H/O gastric bypass (19) S/P tonsillectomy and adenoidectomy (20) H/O hernia repair Family History Diabetes mellitus Gallbladder disease Heart disease Hypertension Social / Work History Marital Status: Housing Status: lives with significant other Allergies Coded Allergies: Atorvastatin (Verified Allergy, Unknown, myalgias per PCP note , 12/25/16) Rosuvastatin (Unverified Allergy, Unknown, MUSCLE ACHES, 12/25/16) CI Pigment Blue 63 (Verified Adverse Reaction, Mild, PSYCHOSIS, 12/25/16) Duloxetine (Verified Adverse Reaction, Mild, PSYCHOSIS, 12/25/16) Gabapentin (Verified Adverse Reaction, Mild, PSYCHOSIS, 12/25/16) Morphine (Verified Adverse Reaction, Mild, NAUSEA, 12/25/16) NSAIDs (Verified Adverse Reaction, Unknown, s/p bariatric surgery, 12/25/16) per gmg Medications Current Inpatient Medications Medications (Trade) Dose Ordered Sig/Valente Route Start Time Stop Time Status Last Admin Dose Admin Ioversol (Optiray 320) 100 ml UD PRN IV 01/18/17 17:30 01/22/17 17:29 Potassium/ Phosphorus/Sodium (Phospha 250 Neutral 155-852-130 Mg) 1 tab QID PO 01/18/17 21:00 02/17/17 20:59 01/19/17 20:39 1 TAB Sodium Chloride 1,000 ml @ 60 mls/hr [id number] IV 01/18/17 19:30 02/17/17 19:29 01/20/17 03:48 60 MLS/HR Clopidogrel Bisulfate (plAVix TAB) 75 mg QAM PO 01/19/17 09:00 02/18/17 08:59 01/20/17 09:04 75 MG Doxepin HCl (Sinequan Cap) 50 mg BID PO 01/18/17 21:00 02/17/17 20:59 01/20/17 09:04 50 MG Lorazepam (Ativan Tab) 0.5 mg QAM PO 01/19/17 09:00 02/18/17 08:59 01/20/17 09:11 0.5 MG Losartan Potassium (coZAAR TAB) 50 mg BID PO 01/18/17 21:00 02/17/17 20:59 01/20/17 09:06 50 MG Metoclopramide HCl (Reglan Tab) 5 mg BID PO 01/18/17 21:00 02/17/17 20:59 01/20/17 09:05 5 MG Metoprolol Succinate (Toprol Xl Tab) 12.5 mg QAM PO 01/19/17 09:00 02/18/17 08:59 01/20/17 09:05 12.5 MG Pantoprazole Sodium (Protonix Tab) 40 mg QAM PO 01/19/17 09:00 02/18/17 08:59 01/20/17 09:05 40 MG Miscellaneous Information (Order Awaiting Action) 1 ea QS N/A 01/19/17 00:00 02/18/17 00:00 Miscellaneous Information (Order Awaiting Action) 1 ea QS N/A 01/19/17 00:00 02/18/17 00:00 Multivitamins (Flintstones Complete Tab) 1 tab QAM PO 01/19/17 09:00 02/18/17 08:59 01/19/17 08:37 1 TAB Enoxaparin Sodium (Lovenox Inj) 40 mg DAILY@2000 SC 01/18/17 20:00 02/17/17 19:59 01/19/17 20:39 40 MG Acetaminophen (Tylenol Tab) 650 mg Q4H PRN PO 01/18/17 19:45 02/17/17 19:44 Ondansetron HCl (Zofran Inj) 4 mg Q6H PRN IV 01/18/17 19:45 02/17/17 19:44 01/19/17 01:41 4 MG Hydromorphone HCl (Dilaudid Inj) 0.5 mg Q8H PRN IV 01/19/17 15:30 02/01/17 19:29 01/20/17 02:51 0.5 MG Acetaminophen/ Hydrocodone Bitart ([place] 7.5/325 Tab) 1 tab Q6H PRN PO 01/19/17 09:00 02/02/17 08:59 01/20/17 09:04 1 TAB Cefepime HCl 1000 mg/Dextrose 111.3 ml @ 200 mls/hr Q12H IV 01/19/17 10:30 01/29/17 10:29 01/19/17 22:17 200 MLS/HR Review of Systems Denies any recent history of fever, night sweats, unexplained weight loss, or constitutional symptoms. Otherwise, 8 point review of system has been reported to be negative. Physical Exam Height & Weight: Height 5 feet, 3.00 inches. Weight 95.800 (Kilograms) 211 (Pounds) Last Vital Signs Documentation Date Time Temp Pulse Resp B/P (MAP) Pulse Ox O2 Delivery O2 Flow Rate FiO2 01/20/17 07:58 95 Room Air 01/20/17 07:39 37.0 66 14 146/86 (106) Exam: Mrs. Valdes is alert and oriented. Mood and affect are appropriate. Short- term and long-term memory is intact. Sensorium is clear. She appears been no pain or distress. Her BMI is 37.4 kg/m. Inspection of the shoulder demonstrates healed anterior surgical scar on the left side. She demonstrates fair range of motion actively and passively with minimal pain. No crepitus is noted over the shoulder. Inspection of the cervical spine demonstrated loss of cervical lordosis. There is diffuse myofascial pain of the cervical paraspinous muscle and the mid trapezius. Spurling maneuver is negative bilaterally. Sensation motor strength is symmetrical in the upper extremities. Laboratory Laboratory Results (Last CBC): 01/20/17 06:06 Red Blood Count 3.57 L, Mean Corpuscular Volume 96.6, Mean Corpuscular Hemoglobin 31.4, Mean Corpuscular Hemoglobin Concent 32.5, Mean Platelet Volume 8.4, Neutrophils (%) (Auto) 49.9, Lymphocytes (%) (Auto) 34.0, Monocytes (%) ( Auto) 12.0, Eosinophils (%) (Auto) 3.5, Basophils (%) (Auto) 0.3, Neutrophils # (Auto) 1.70, Lymphocytes # (Auto) 1.16 L, Monocytes # (Auto) 0.41, Eosinophils # (Auto) 0.12, Basophils # (Auto) 0.01 Imaging Other Findings LEFT UPPER EXTREMITY VENOUS DOPPLER HISTORY: Left arm pain. Recent left shoulder surgery. COMPARISON STUDY: None. FINDINGS: The left internal jugular vein is patent. There is normal flow within the left subclavian vein. There is normal flow and compressibility within the left axillary, basilic, brachial, radial, ulnar, and visualized cephalic veins. Small sliver fluid deep to the subcutaneous fat. This is deep to the incision site and favors postoperative change. There is also a 3.9 x 3.3 x 1.6 cm cystic focus within the left axilla. IMPRESSION: No DVT within the left upper extremity. Small sliver of fluid deep to the incision site at the shoulder consistent with postoperative change. There is also a nonspecific 3.9 x 3.3 x 1.6 cm cystic focus within the left axilla. This may also represent recent postoperative change. Electronically signed by: Davidson Mann M.D. 01/19/2017 8:34 AM Dictated Date/Time: 01/19/2017 8:32 AM [place] Drug Monitoring Program Search Results: patient reviewed within database, no issues identified Opioid Risk Assessment Risk assessment performed, minimal risk identified, moderate risk identified Assessment 1. Left shoulder pain s/p total reverse shoulder 2. Confusion due to misuse of opiates by misunderstanding the long-acting short acting oxycodone preparations. 3. Cervical radicular pain left upper extremity. Recommendations 1. d/c potent opioids. 2. Recommend hydrocodone, tramadol or tapentadol as outpatient with supervision by farmworkers or family members. 3. Recommend outpatient cervical spine MRI to go for cervical spinal stenosis as a cause of left upper extremity and shoulder pain. This can be pursued by the primary care provider as an outpatient.
--- NOTE | 2017-01-20 15:03 | Progress Note ---
Medicine Progress Note Date & Time of Visit: Jan 20, 2017 at 14:47. Subjective patient seen resting in bed, appears comfortable, brighter states she feels much better denies dysuria, abdominal pain,nausea, weakness left shoulder pain is better denies other symptoms states she is ready and would like to be discharged today Objective Last 8 Hrs Date Time Temp Pulse Resp B/P (MAP) Pulse Ox O2 Delivery O2 Flow Rate FiO2 01/20/17 07:58 95 Room Air 01/20/17 07:39 37.0 66 14 146/86 (106) 95 Room Air 01/20/17 07:20 Room Air Physical Exam: General- oriented x 3, not in distress, speaks in sentences with no effort Eyes- anicteric Neck- no JVD Lungs- clear breath sounds bilaterally, no rales/wheezes Heart- regular rhythm; no murmur, normal rate Abdomen- normal bowel sounds, soft, nontender Extremities- no pretibial edema, no calf tenderness Left shoulder- mild edema, no warmth, no tenderness Neuro- alert, oriented x 3; no gross focal deficits Skin- warm & dry Laboratory Results: Last 24 Hours Test 01/20/17 06:06 White Blood Count 3.41 K/uL Red Blood Count 3.57 M/uL Hemoglobin 11.2 g/dL Hematocrit 34.5 % Mean Corpuscular Volume 96.6 fL Mean Corpuscular Hemoglobin 31.4 pg Mean Corpuscular Hemoglobin Concent 32.5 g/dl Platelet Count 227 K/uL Mean Platelet Volume 8.4 fL Neutrophils (%) (Auto) 49.9 % Lymphocytes (%) (Auto) 34.0 % Monocytes (%) (Auto) 12.0 % Eosinophils (%) (Auto) 3.5 % Basophils (%) (Auto) 0.3 % Neutrophils # (Auto) 1.70 K/uL Lymphocytes # (Auto) 1.16 K/uL Monocytes # (Auto) 0.41 K/uL Eosinophils # (Auto) 0.12 K/uL Basophils # (Auto) 0.01 K/uL RDW Standard Deviation 50.6 fL RDW Coefficient of Variation 14.2 % Immature Granulocyte % (Auto) 0.3 % Immature Granulocyte # (Auto) 0.01 K/uL Sodium Level 143 mmol/L Potassium Level 3.7 mmol/L Chloride Level 111 mmol/L Carbon Dioxide Level 25 mmol/L Anion Gap 7.0 mmol/L Blood Urea Nitrogen 5 mg/dl Creatinine 0.60 mg/dl Est Creatinine Clear Calc Drug Dose 100.2 ml/min Estimated GFR () 109.3 Estimated GFR (Non- 94.3 BUN/Creatinine Ratio 7.5 Random Glucose 118 mg/dl Calcium Level 8.0 mg/dl Phosphorus Level 4.0 mg/dl Assessment & Plan 66 year old female with history of recent L shoulder surgery, SVT, DM, HTN, WHEELER, CVA/TIA presenting with persistent urinary symptoms and progressive left shoulder pain. PSEUDOMONAS UTI - no improvement with PO Cephalexin - urine culture 01/16/17: pansensitive Pseudomonas - blood cultures: negative - changed Ceftriaxone to Cefepime IV received x 2 days - symptoms resolved - discharge on Ciprofloxacin 500mg BID x 6 days Florastor TID LEFT SHOULDER PAIN S/P LEFT SHOULDER SURGERY- REVISION, ANTIBIOTIC BEAD PLACEMENT 12/19/16 - no signs of infection at this time - Ortho consulted, no further intervention at this point advised proper usage of left arm/shoulder - per patient, Nucynta not working at all given [place] q6h and Dilaudid q8h patient has history of altered mental status likely from pain medications - consulted Pain management Dr. Woods recommend either Rincon, Tramadol, Nucynta consider Cervical spine MRI - will prescribe Tramadol 50mg q6h PRN as needed for pain ff up with Ortho as outpatient LOW PH - replace with PO Ph - Ph improved ELEVATED LACTIC ACID - resolved LOW TSH AND T4 - likely sick euthyroid syndrome - repeat asa outpatient ELEVATED D DIMER CT chest negative Doppler of Left arm: negative - likely from recent left shoulder surgery SVT History - on Metoprolol DM - diet controlled HTN - continue Losartan WHEELER S/P GASTRIC BYPASS - no GI symptoms ANXIETY - Ativan 0.5mg po daily NEUROPATHY - on Doxepine DVT prophylaxis - Lovenox Full code per patient Dispo d/c home Advanced Directives Existing Living Will: Yes Existing Power of Green [employer] Department Supervisor: Yes (ENEDELIA ) VTE Prophylaxis VTE Risk Assessment Done? Y/N: Yes Risk Level: Moderate Given or contraindicated: Enoxaparin (Lovenox)SQ Current Inpatient Medications: Current Inpatient Medications Medications (Trade) Dose Ordered Sig/Valente Route Start Time Stop Time Status Last Admin Dose Admin Ioversol (Optiray 320) 100 ml UD PRN IV 01/18/17 17:30 01/22/17 17:29 Potassium/ Phosphorus/Sodium (Phospha 250 Neutral 155-852-130 Mg) 1 tab QID PO 01/18/17 21:00 02/17/17 20:59 01/19/17 20:39 1 TAB Sodium Chloride 1,000 ml @ 60 mls/hr [id number] IV 01/18/17 19:30 02/17/17 19:29 01/20/17 03:48 60 MLS/HR Clopidogrel Bisulfate (plAVix TAB) 75 mg QAM PO 01/19/17 09:00 02/18/17 08:59 01/20/17 09:04 75 MG Doxepin HCl (Sinequan Cap) 50 mg BID PO 01/18/17 21:00 02/17/17 20:59 01/20/17 09:04 50 MG Lorazepam (Ativan Tab) 0.5 mg QAM PO 01/19/17 09:00 02/18/17 08:59 01/20/17 09:11 0.5 MG Losartan Potassium (coZAAR TAB) 50 mg BID PO 01/18/17 21:00 02/17/17 20:59 01/20/17 09:06 50 MG Metoclopramide HCl (Reglan Tab) 5 mg BID PO 01/18/17 21:00 02/17/17 20:59 01/20/17 09:05 5 MG Metoprolol Succinate (Toprol Xl Tab) 12.5 mg QAM PO 01/19/17 09:00 02/18/17 08:59 01/20/17 09:05 12.5 MG Pantoprazole Sodium (Protonix Tab) 40 mg QAM PO 01/19/17 09:00 02/18/17 08:59 01/20/17 09:05 40 MG Miscellaneous Information (Order Awaiting Action) 1 ea QS N/A 01/19/17 00:00 02/18/17 00:00 Miscellaneous Information (Order Awaiting Action) 1 ea QS N/A 01/19/17 00:00 02/18/17 00:00 Multivitamins (Flintstones Complete Tab) 1 tab QAM PO 01/19/17 09:00 02/18/17 08:59 01/19/17 08:37 1 TAB Enoxaparin Sodium (Lovenox Inj) 40 mg DAILY@2000 SC 01/18/17 20:00 02/17/17 19:59 01/19/17 20:39 40 MG Acetaminophen (Tylenol Tab) 650 mg Q4H PRN PO 01/18/17 19:45 02/17/17 19:44 Ondansetron HCl (Zofran Inj) 4 mg Q6H PRN IV 01/18/17 19:45 02/17/17 19:44 01/19/17 01:41 4 MG Hydromorphone HCl (Dilaudid Inj) 0.5 mg Q8H PRN IV 01/19/17 15:30 02/01/17 19:29 01/20/17 11:24 0.5 MG Acetaminophen/ Hydrocodone Bitart ([place] 7.5/325 Tab) 1 tab Q6H PRN PO 01/19/17 09:00 02/02/17 08:59 01/20/17 09:04 1 TAB Cefepime HCl 1000 mg/Dextrose 111.3 ml @ 200 mls/hr Q12H IV 01/19/17 10:30 01/29/17 10:29 01/20/17 11:23 200 MLS/HR
[2017-01-20] MEDS ORDERED: CPR500 PO (15:19)
[2017-01-20] MEDS ORDERED: LACT10CA3 PO (15:19)
[2017-01-20] MEDS ORDERED: ATV1 PO (15:19)
[2017-01-20] MEDS ORDERED: TRAM-10 PO (15:19)
--- NOTE | 2017-01-20 15:28 | Discharge Instructions ---
Discharge Instructions Date of Service Jan 20, 2017. Admission Reason for Admission: UTI Discharge Discharge Diagnosis / Problem: URINARY TRACT INFECTION Discharge Goals Goal(s): Diagnostic testing, Therapeutic intervention Activity Recommendations Activity Limitations: as noted below (INCREASE ACTIVITY GRADUALLY TOLERATED ; FOLLOW INSTRUCTIONS BY ORTHOPEDIC SURGEON NOTED BELOW.) . Instructions / Follow-Up Instructions / Follow-Up PLEASE REVIEW YOUR NEW MEDICATION LIST AND FOLLOW INSTRUCTIONS CAREFULLY. CALL YOUR PRIMARY CARE PHYSICIAN OR RETURN TO THE ER IMMEDIATELY IF WITH RECURRENCE OF SYMPTOMS, CHANGES WITH URINATION, FEVER/CHILLS, ABDOMINAL PAIN, INCREASING PAIN ON YOUR LEFT SHOULDER. CALL YOUR PRIMARY CARE PHYSICIAN OR SURGEON IF YOUR PAIN IS NOT CONTROLLED. DO NOT INCREASE THE DOSE OF YOUR MEDICATIONS UNLESS ADVISED BY YOUR DOCTOR. FOLLOW UP WITH DR. CARRASCO- ASSOCIATE OF DR. ADAMSON, ON MONDAY JANUARY 23, 2017 AT 10:[address] AM[address] UP [address] FUNES- [facility], ADVISED. Current Hospital Diet Patient's current hospital diet: AHA Diet (Heart Healthy) Discharge Diet Recommended Diet: AHA Diet (Heart Healthy), Diabetes Type 2 Diet Pending Studies Studies pending at discharge: no Laboratory Results Hemoglobin A1c Test 12/04/16 10:22 Range/Units Estimated Average Glucose 134 mg/dl Hemoglobin A1c 6.3 H 4.5-5.6 % Medical Emergencies . Who to Call and When: Medical Emergencies: If at any time you feel your situation is an emergency, please call 911 immediately. . Non-Emergent Contact Non-Emergency issues call your: Primary Care Provider, Surgeon Call Non-Emergent contact if: you have a fever, your pain is not controlled, your pain is worsening, wound has increased drainage, wound has increased redness, wound has increased pain, you have any medication questions . . "Provider Documentation" section prepared by Pedro Fishman. . Process Automation Engineer Recommendations Process Automation Engineer Recommendations: Dr Funes discussed activity modification this AM with patient. Limited use with arm in front of body no external rotation beyond handshake position and no raising above chest level for now ,will xray at 6 weeks postop and schedule PT then. limit strong narcotics due to confusion hx when on narcotics VTE Core Measure Inpt VTE Proph given/why not?: Enoxaparin (Lovenox)[place] Drug Monitoring Program Search Results: patient reviewed within database
--- NOTE | 2017-01-20 15:34 | Discharge Summary ---
Discharge Summary Date of Service Jan 20, 2017. Discharge Summary Admission Date: Jan 18, 2017 at 17:49 Discharge Date: Jan 20, 2017 Discharge Disposition: Home Principal Diagnosis: PSEUDOMONAS UTI Secondary Diagnoses/Problems: Please refer to hospital course below. Procedures: CHEST FOR PE) ANGIO WITH CT DOSE: 657.07 mGy.cm HISTORY: Chest pain dyspnea TECHNIQUE: Multiaxial CT images of the chest were performed following the intravenous administration of contrast to evaluate the pulmonary arteries. Maximal intensity projection images were also obtained. A dose lowering technique was utilized adhering to the principles of ALARA. COMPARISON STUDY: None. FINDINGS: There is a normal caliber thoracic aorta with no evidence for dissection. There is no evidence for pulmonary embolus. No pleural effusions. No pneumothorax. The liver and spleen are unremarkable. No mediastinal or hilar lymphadenopathy. The central airways are patent. The lungs are clear. Prior gastroplasty. Degenerative and postoperative changes of the thoracic and upper lumbar spine. Moderate esophageal thickening IMPRESSION: No evidence for pulmonary embolus. The lungs are clear. Moderate esophageal wall thickening with evidence for a prior gastroplasty LEFT UPPER EXTREMITY VENOUS DOPPLER HISTORY: Left arm pain. Recent left shoulder surgery. COMPARISON STUDY: None. FINDINGS: The left internal jugular vein is patent. There is normal flow within the left subclavian vein. There is normal flow and compressibility within the left axillary, basilic, brachial, radial, ulnar, and visualized cephalic veins. Small sliver fluid deep to the subcutaneous fat. This is deep to the incision site and favors postoperative change. There is also a 3.9 x 3.3 x 1.6 cm cystic focus within the left axilla. IMPRESSION: No DVT within the left upper extremity. Small sliver of fluid deep to the incision site at the shoulder consistent with postoperative change. There is also a nonspecific 3.9 x 3.3 x 1.6 cm cystic focus within the left axilla. This may also represent recent postoperative change. HEAD WITHOUT CONTRAST (CT) CT DOSE: 537.48 mGy.cm HISTORY: Mental status change EVALUATE ALTERED MENTAL STATUS/WEAKNESS TECHNIQUE: Multiaxial CT images of the head were performed without the use of intravenous contrast. A dose lowering technique was utilized adhering to the principles of ALARA. Comparison: 12/25/2016 Findings: The paranasal sinuses and mastoid air cells are clear. The calvarium and skull base are intact. The ventricles and sulci are within normal limits. There is no mass, hematoma, midline shift, or acute infarct. Impression: No acute intracranial abnormality. Consultations: ORTHO DR. FUNES, PAIN MANAGEMENT DR. WOODS Pending Studies/Follow-Up: PLEASE REFER TO HOSPITAL COURSE BELOW. Medication Reconciliation New Medications: Ciprofloxacin (Ciprofloxacin HCl) 500 Mg Tab 1 TAB PO BID for 6 Days, #12 TABS 0 Refills Lactobacillus-Inulin (Culturelle) 1 Cap Cap 1 CAP PO DAILY for 14 Days, #14 CAP Tramadol (Ultram) 50 Mg Tab 50 MG PO Q6H PRN for Pain, #12 TAB 0 Refills Changed Medications: Lorazepam (Lorazepam) 1 Mg Tab 0.5 MG PO QAM for 10 Days (Changed from: 1 MG) Continued Medications: Albuterol Hfa (Ventolin Hfa) 200 Puffs/75983 Mcg Aers 2 PUFFS INH Q6H PRN for Wheezing Biotin (Cvs Biotin) 10 Mg Cap 10 MG PO QAM Clopidogrel Bisulfate (Clopidogrel) 75 Mg Tab 75 MG PO QAM Cyanocobalamin (Cyanocobalamin) 1,000 Mcg/Ml Inj 1000 MCG IM Q3 MONTHS Cyclosporine (Ophth) (Restasis) 0.05 % Emu 1 DROP OPB BID Doxepin Hcl (Sinequan) 50 Mg Cap 50 MG PO BID Flunisolide (Nasal) (Flunisolide) 0.025 % Spr 2 SPRY SALOMÓN DAILY PRN for Allergy Symptoms Losartan Potassium (Cozaar) 100 Mg Tab 100 MG PO DAILY Metoclopramide HCl (Metoclopramide HCl) 5 Mg Tab 5 MG PO BID TAKE THIS MEDICATION TWICE DAILY 30 MINUTES BEFORE MORNING AND EVENING MEALS. Metoprolol Succinate (Metoprolol Succinate ER) 25 Mg Tabcr 12.5 MG PO QAM Ondansetron (Ondansetron HCl) 8 Mg Tab 8 MG PO UD PRN for Nausea Pantoprazole (Pantoprazole Sodium) 40 Mg Tab 40 MG PO QAM Pediatric Multiple Vitamin W/ (Multivitamin Gummies Chil) 1 Chw Chw 1 TAB PO QAM Discontinued Medications: Promethazine HCl (Promethazine HCl) 25 Mg Tab 25 MG PO Q6H PRN for Nausea Admission Information HPI (per Admitting provider): 66 year old female with history of recent L shoulder surgery, SVT, DM, HTN, WHEELER, CVA/TIA presenting with persistent urinary symptoms and progressive left shoulder pain. Follows with Dr. Mckeon for PCP and Dr. Funes for PCP. Patient presented to the ER 2 days ago for urinary symptoms and was given Cephalexin. She has been taking the Cephalexin with no improvement- still having dysuria, frequency, weakness. Patient also reports increasing left shoulder pain for the past week, worse with moving the arm. She then presented to the ER. At the ER, patient seen resting in bed, comfortable, alert, oriented. Denies confusion, slurring of speech. Still having urinary symptoms. Left shoulder pain- around 12/29. No other symptoms. Physical Exam (per Admitting): General Appearance: WD/WN, no apparent distress Head: normocephalic, atraumatic Eyes: normal inspection, PERRL, EOMI, sclerae normal ENT: normal ENT inspection, hearing grossly normal, pharynx normal Neck: supple, no adenopathy, thyroid normal, no JVD, trachea midline Respiratory/Chest: chest non-tender, lungs clear, normal breath sounds, no respiratory distress, no accessory muscle use Cardiovascular: regular rate, rhythm, no edema, no JVD, no murmur Abdomen/GI: normal bowel sounds, non tender, soft Back: normal inspection, no CVA tenderness Extremities/Musculoskelatal: no calf tenderness, normal capillary refill, no pedal edema, normal range of motion, + pertinent finding (left shoulder- (+) surgical incision - well healed, mild edema and warmth, no tenderness) Neurologic/Psych: help desk associate II-XII nml as tested, no motor/sensory deficits, alert , normal mood/affect, oriented x 3 Skin: normal color, warm/dry, no rash Lymphatic: no adenopathy Hospital Course 66 year old female with history of recent L shoulder surgery, SVT, DM, HTN, WHEELER, CVA/TIA presenting with persistent urinary symptoms and progressive left shoulder pain. PSEUDOMONAS UTI - no improvement with PO Cephalexin - urine culture 01/16/17: pansensitive Pseudomonas - blood cultures: negative - changed Ceftriaxone to Cefepime IV received x 2 days - symptoms resolved - discharge on Ciprofloxacin 500mg BID x 6 days Florastor TID LEFT SHOULDER PAIN S/P LEFT SHOULDER SURGERY- REVISION, ANTIBIOTIC BEAD PLACEMENT 12/19/16 - no signs of infection at this time - Ortho consulted, no further intervention at this point advised proper usage of left arm/shoulder - per patient, Nucynta not working at all given [place] q6h and Dilaudid q8h patient has history of altered mental status likely from pain medications - consulted Pain management Dr. Woods recommend either [place], Tramadol, Nucynta consider Cervical spine MRI - will prescribe Tramadol 50mg q6h PRN as needed for pain ff up with Ortho as outpatient LOW PHOSPHORUS - replace with PO Ph - Ph improved ELEVATED LACTIC ACID - resolved LOW TSH AND T4 - likely sick euthyroid syndrome - repeat asa outpatient ELEVATED D DIMER CT chest negative Doppler of Left arm: negative - likely from recent left shoulder surgery SVT History - on Metoprolol DM - diet controlled HTN - continue Losartan WHEELER S/P GASTRIC BYPASS - no GI symptoms ANXIETY - Ativan 0.5mg po daily NEUROPATHY - on Doxepine Dispo d/c home ff up with PCP in 3-5 days ff up with Ortho as advised Total time spent on discharge = 35 minutes This includes examination of the patient, discharge planning, medication reconciliation, and communication with other providers. Discharge Instructions Discharge Instructions Date of Service Jan 20, 2017. Admission Reason for Admission: UTI Discharge Discharge Diagnosis / Problem: URINARY TRACT INFECTION Discharge Goals Goal(s): Diagnostic testing, Therapeutic intervention Activity Recommendations Activity Limitations: as noted below (INCREASE ACTIVITY GRADUALLY TOLERATED ; FOLLOW INSTRUCTIONS BY ORTHOPEDIC SURGEON NOTED BELOW.) . Instructions / Follow-Up Instructions / Follow-Up PLEASE REVIEW YOUR NEW MEDICATION LIST AND FOLLOW INSTRUCTIONS CAREFULLY. CALL YOUR PRIMARY CARE PHYSICIAN OR RETURN TO THE ER IMMEDIATELY IF WITH RECURRENCE OF SYMPTOMS, CHANGES WITH URINATION, FEVER/CHILLS, ABDOMINAL PAIN, INCREASING PAIN ON YOUR LEFT SHOULDER. CALL YOUR PRIMARY CARE PHYSICIAN OR SURGEON IF YOUR PAIN IS NOT CONTROLLED. DO NOT INCREASE THE DOSE OF YOUR MEDICATIONS UNLESS ADVISED BY YOUR DOCTOR. FOLLOW UP WITH DR. CARRASCO- ASSOCIATE OF DR. MCKEON, ON MONDAY JANUARY 23, 2017 AT 10:45 AM. FOLLOW UP WITH [address] CHINA OSCAR, ADVISED. Current Hospital Diet Patient's current hospital diet: AHA Diet (Heart Healthy) Discharge Diet Recommended Diet: AHA Diet (Heart Healthy), Diabetes Type 2 Diet Pending Studies Studies pending at discharge: no Laboratory Results Hemoglobin A1c Test 12/04/16 10:22 Range/Units Estimated Average Glucose 134 mg/dl Hemoglobin A1c 6.3 H 4.5-5.6 % Medical Emergencies . Who to Call and When: Medical Emergencies: If at any time you feel your situation is an emergency, please call 911 immediately. . Non-Emergent Contact Non-Emergency issues call your: Primary Care Provider, Surgeon Call Non-Emergent contact if: you have a fever, your pain is not controlled, your pain is worsening, wound has increased drainage, wound has increased redness, wound has increased pain, you have any medication questions . . "Provider Documentation" section prepared by Pedro Fishman. . Senior Support Engineer Recommendations Senior Support Engineer Recommendations: Dr Funes discussed activity modification this AM with patient. Limited use with arm in front of body no external rotation beyond handshake position and no raising above chest level for now ,will xray at 6 weeks postop and schedule PT then. limit strong narcotics due to confusion hx when on narcotics VTE Core Measure Inpt VTE Proph given/why not?: Enoxaparin (Lovenox)[place] Drug Monitoring Program Search Results: patient reviewed within database
--- NOTE | 2017-01-20 15:42 | DIAGNOSTIC IMAGING REPORT ---
BILATERAL LOWER EXTREMITY VENOUS DOPPLER HISTORY: Elevated D dimer. COMPARISON STUDY: None. FINDINGS: There is normal compressibility, flow, and augmentation within the bilateral lower extremity deep venous systems. IMPRESSION: No DVT within the right or left lower extremity. Electronically signed by: Davidson Mann M.D. 01/20/2017 3:40 PM Dictated Date/Time: 01/20/2017 3:39 PM
[2017-01-20 17:43] VITALS: BP 146/86; PULSE 66; TEMP 37; O2SAT 95
[2017-01-31] MEDS ORDERED: PEDI1CHW95 PO (10:51)
[2017-01-31] MEDS ORDERED: VNTHFA/IN INH (15:52)
[2017-01-31] MEDS ORDERED: TPRSR/25 PO (15:52)
[2017-01-31] MEDS ORDERED: PLV75 PO (15:52)
[2017-01-31] MEDS ORDERED: RGL/5 PO (15:52)
[2017-01-31] MEDS ORDERED: LOSA100T65 PO (15:52)
[2017-01-31] MEDS ORDERED: SNQ/50 PO (15:52)
[2017-01-31] MEDS ORDERED: ONDA-63 PO (15:52)
[2017-01-31] MEDS ORDERED: PRT/40 PO (15:52)
[2017-01-31] MEDS ORDERED: CYNI1000 IM (15:56)
[2017-01-31] MEDS ORDERED: CYCL0.052 OPB (17:48)
[2017-01-31] MEDS ORDERED: FLUN0.02 NAE (17:48)
[2017-01-31] MEDS ORDERED: BIOT10CA PO (17:48)
[2017-02-02] MEDS ORDERED: KFL250 PO (13:27)
== END 2017-01-20 18:08 | disposition home or self-care (01) | DRG 690 ==
LOC: C.EDB 14:32 → C.MED 17:49 → ENRESERV 18:26 → C.MSW 01-19 12:34
PROVIDERS: ADMIT Internal Medicine; ATTEND Internal Medicine
DX: N39.0 Urinary tract infection, site not specified (principal); I47.1 Supraventricular tachycardia; B96.5 Pseudomonas (aeruginosa) (mallei) (pseudomallei) as the cause of diseases classified elsewhere; M25.512 Pain in left shoulder; M54.12 Radiculopathy, cervical region; R74.0 Nonspecific elevation of levels of transaminase and lactic acid dehydrogenase [LDH]; R79.1 Abnormal coagulation profile; K75.81 Nonalcoholic steatohepatitis (NASH); E07.81 Sick-euthyroid syndrome; J45.909 Unspecified asthma, uncomplicated; E11.40 Type 2 diabetes mellitus with diabetic neuropathy, unspecified; I10 Essential (primary) hypertension; F41.9 Anxiety disorder, unspecified; K21.9 Gastro-esophageal reflux disease without esophagitis; Z51.81 Encounter for therapeutic drug level monitoring; Z79.899 Other long term (current) drug therapy; Z96.612 Presence of left artificial shoulder joint; Z98.84 Bariatric surgery status; Z86.73 Personal history of transient ischemic attack (TIA), and cerebral infarction without residual deficits; Z83.3 Family history of diabetes mellitus; Z82.49 Family history of ischemic heart disease and other diseases of the circulatory system; R42 Dizziness and giddiness; E78.5 Hyperlipidemia, unspecified; E66.01 Morbid (severe) obesity due to excess calories

== ENCOUNTER 2017-01-31 17:48 | Inpatient (IN) | payer MEDICARE, OTHER ==
[~2017-01-31] VITALS: Ht 160 cm; Wt 92.0 kg
[~2017-01-31 17:48] MED LIST changes: +BIOT10CA PO; -CEPH500C2 PO; +CPR500 PO; +CYCL0.052 OPB; +CYNI1000 IM; +FLUN0.02 NAE; +LACT10CA3 PO; +LOSA100T65 PO; +ONDA-63 PO; +PEDI1CHW95 PO; +PLV75 PO; -PROM25TA16 PO; +PRT/40 PO; +RGL/5 PO; +SNQ/50 PO; +TPRSR/25 PO; +TRAM-10 PO; -ULT50 PO; +VNTHFA/IN INH; -ZOLP5TAB6 PO
[2017-01-31] MEDS ORDERED: CEFTRIAXONE SOD INJ 1 GM ADDVIAL IV STA (18:13)
[2017-01-31] MEDS ORDERED: SODIUM CHLORIDE 0.9% 1000ML 2,000 ML IV STA (18:29)
[2017-01-31] MEDS ORDERED: PROMETHAZINE HCL INJ 25 MG/ML 1 ML VIAL IV STA (18:29)
[2017-01-31] MEDS ORDERED: EFFSR75 PO (18:42)
[2017-01-31] MEDS ORDERED: PRMVC PV (18:42)
[2017-01-31] MEDS ORDERED: LACT1CAP3 PO (18:42)
[2017-01-31] MEDS ORDERED: ATV/1 PO (18:42)
[2017-01-31] MEDS ORDERED: ULT50 PO (18:42)
[2017-01-31] MEDS ORDERED: ACETAMINOPHEN 500 MG TAB PO STA (18:43)
[2017-01-31] MEDS ORDERED: PROMETHAZINE HCL INJ 25 MG in SODIUM CHLORIDE 0.9% 50ML 50 ML IV ONE (19:00)
[2017-01-31 19:24] LABS: BASO % 0.1 %; BASO ABS # 0.01 K/uL (0-0.2); COMPLETE YES; EOS % 0.4 %; HEMATOCRIT 39.5 % (37-47); IG% 0.1 %; LYMPH % 21.5 %; LYMPH ABS # 1.49 K/uL (1.2-3.4); MEAN CELL VOLUME 91.2 fL (80-100); MEAN CORPUSCULAR HEMOGLOBIN 31.2 pg (25-34); MEAN CORPUSCULAR HGB CONC 34.2 g/dl (32-36); MEAN PLATELET VOLUME 8.8 fL (7.4-10.4); MONO % 10.2 %; NEUT % 67.7 %; PLATELET COUNT 390 K/uL (130-400); RED BLOOD COUNT 4.33 M/uL (4.2-5.4); WHITE BLOOD COUNT 6.94 K/uL (4.8-10.8)
[2017-01-31 19:41] LABS: ALT/SGPT 16 U/L (12-78); BLOOD UREA NITROGEN 7 mg/dl (7-18); BUN/CREATININE RATIO 6.3 (10-20); CALCIUM 8.3 mg/dl (8.5-10.1); CARBON DIOXIDE 24 mmol/L (21-32); CHLORIDE 101 mmol/L (98-107); GLUCOSE 105 mg/dl (70-99); POTASSIUM 3.6 mmol/L (3.5-5.1); SODIUM 136 mmol/L (136-145)
[2017-01-31 19:44] LABS: ALKALINE PHOSPHATASE 154 U/L (45-117); AST/SGOT 15 U/L (15-37)
[2017-01-31] MEDS ORDERED: MoRPHine SULFATE 4 MG/ML 1 ML CARP\\VIAL IV STA (19:49)
[2017-01-31 19:54] LABS: URINE APPEARANCE CLEAR (CLEAR); URINE BILIRUBIN NEG (NEG); URINE COLOR YELLOW; URINE NITRITE NEG (NEG); URINE SPECIFIC GRAVITY 1.017 (1.000-1.030); UROBILINOGEN NEG (NEG)
[2017-01-31 20:06] LABS: MANUAL MICROSCOPIC REQUIRED? NO; REVIEW REQ? YES
[2017-01-31 20:16] LABS: ZZURINE CULT IF INDIC CATH YES
[2017-01-31] MEDS ORDERED: PIPERACILLIN/TAZOBACTAM 3.375 GM/100ML D5W IV STA (20:23)
[2017-01-31] MEDS ORDERED: PIPERACILL/TAZOBAC IV 3.375 GM in DEXTROSE 5% 100ML IV STA (20:29)
--- NOTE | 2017-01-31 21:00 | EMERGENCY ROOM VISIT NOTE ---
History Report prepared by Tano: Airam Delarosa Under the Supervision of: Dr. Gonzalo Richard D.O. First contact with patient: 17:55 Chief Complaint: URINARY SYMPTOMS Stated Complaint: NAUSEA,WEAKNESS History of Present Illness The patient is a 66 year old female who presents to the Emergency Room with complaints of persistent urinary symptoms that began . She currently rates her discomfort as 6/10 in severity. The patient states that two weeks ago she was evaluated in the hospital after being diagnosed with a UTI. She states that her culture came back positive for Pseudomonas, noting that she received 2 days of IV antibiotics. The patient states that she was discharged on and states that she finished the antibiotics on Thursday. She states that she noticed her symptoms returning. The patient states that she has experienced pain and burning with urination, urinary frequency, and urinary urgency. She states that she has noticed right lower abdominal pain. The patient states that she has been experiencing chills. She states that she has been feeling increasingly weak over the last several days. The patient states that she has been nauseous and notes dry heaving. She reports a decrease in appetite. The patient states that she tried taking her prescribed Zofran for her nausea, but denies any relief. She states that her last bowel movement was this morning, stating that it was normal. Pt denies headache, change in vision , fevers, chest pain, shortness of breath, vomiting, diarrhea, and melena. Source of History: patient Onset: Position: other (global) Symptom Intensity: 6/10 Quality: other (urinary symptoms) Timing: other (persistent) Associated Symptoms: + chills, + nausea, + abdominal pain, + urinary symptoms, + weakness Review of Systems See HPI for pertinent positives & negatives. A total of 10 systems reviewed and were otherwise negative. Past Medical & Surgical Medical Problems: (1) Anxiety (2) Asthma (3) C. difficile diarrhea (4) DM2 (diabetes mellitus, type 2) (5) GERD (gastroesophageal reflux disease) (6) Hyperlipidemia (7) Hypertension (8) Morbid obesity (9) Sacral back pain (10) Shoulder pain (11) UTI (urinary tract infection) Surgical Problems: (1) H/O gastric bypass (2) H/O hernia repair (3) H/O spinal fusion (4) History of carpal tunnel surgery (5) Previous section (6) S/P appendectomy (7) S/P cholecystectomy (8) S/p left shoulder surgery (9) S/P parathyroidectomy (10) S/P tonsillectomy and adenoidectomy (11) Total knee replacement status Family History Diabetes mellitus Gallbladder disease Heart disease Hypertension Social History Smoking Status: Never Smoker Alcohol Use: none Drug Use: none Marital Status: Housing Status: lives with significant other Current/Historical Medications Scheduled Biotin (Cvs Biotin), 10 MG PO QAM Clopidogrel Bisulfate (Clopidogrel), 75 MG PO QAM Cyanocobalamin (Cyanocobalamin), 1,000 MCG IM Q3 MONTHS Cyclosporine (Ophth) (Restasis), 1 DROP OPB BID Doxepin Hcl (Sinequan), 50 MG PO BID Estrogens, Conjugated (Premarin), 1 APPLN PV HS Lactobacillus Rhamnosus (GG) (Culturelle), 1 CAP PO DAILY Lorazepam (Ativan), 1 MG PO QAM Losartan Potassium (Cozaar), 100 MG PO DAILY Metoclopramide HCl (Metoclopramide HCl), 5 MG PO BID Metoprolol Succinate (Metoprolol Succinate ER), 12.5 MG PO QAM Pantoprazole (Pantoprazole Sodium), 40 MG PO QAM Pediatric Multiple Vitamin W/ (Multivitamin Gummies Chil), 1 TAB PO QAM Venlafaxine Hcl (Effexor Extended Rel), 75 MG PO DAILY Scheduled PRN Albuterol Hfa (Ventolin Hfa), 2 PUFFS INH Q6H PRN for Wheezing Flunisolide (Nasal) (Flunisolide), 2 SPRY SALOMÓN DAILY PRN for Allergy Symptoms Ondansetron (Ondansetron HCl), 4 MG PO Q8 PRN for Nausea Tramadol HCl (Tramadol HCl), 50 MG PO Q6H PRN for Pain Allergies Coded Allergies: Atorvastatin (Verified Allergy, Unknown, myalgias per PCP note , 12/25/16) Rosuvastatin (Unverified Allergy, Unknown, MUSCLE ACHES, 12/25/16) CI Pigment Blue 63 (Verified Adverse Reaction, Mild, PSYCHOSIS, 12/25/16) Duloxetine (Verified Adverse Reaction, Mild, PSYCHOSIS, 12/25/16) Gabapentin (Verified Adverse Reaction, Mild, PSYCHOSIS, 12/25/16) Morphine (Verified Adverse Reaction, Mild, NAUSEA, 12/25/16) NSAIDs (Verified Adverse Reaction, Unknown, s/p bariatric surgery, 12/25/16) per g Physical Exam Vital Signs Date Time Temp Pulse Resp B/P (MAP) Pulse Ox O2 Delivery O2 Flow Rate FiO2 01/31/17 19:38 87 25 172/111 96 Room Air 01/31/17 19:08 90 01/31/17 19:02 96 18 162/126 95 Room Air 01/31/17 18:22 98 150/106 112 125/98 114 139/100 01/31/17 18:21 95 Room Air 01/31/17 18:21 95 Room Air 01/31/17 17:52 37.4 108 20 132/85 95 Physical Exam GENERAL: alert, sitting up in bed, well appearing, well nourished, no distress, non-toxic EYE EXAM: normal conjunctiva. OROPHARYNX: no exudate, no erythema, lips, buccal mucosa, and tongue normal and mucous membranes are moist NECK: supple, no nuchal rigidity, no adenopathy, non-tender LUNGS: Clear to auscultation. Normal chest wall mechanics HEART: Tachycardic, no murmurs, S1 normal and S2 normal ABDOMEN: abdomen soft, non-tender, normo-active bowel sounds, no masses, no rebound or guarding. BACK: Back is symmetrical on inspection and there is no deformity, no midline tenderness, no CVA tenderness. SKIN: no rashes and no bruising UPPER EXTREMITIES: upper extremities are grossly normal. LOWER EXTREMITIES: No pitting edema. NEURO EXAM: Normal sensorium, cranial nerves II-XII grossly intact, normal speech, no gross weakness of arms, no gross weakness of legs. Medical Decision & Procedures Laboratory Results 01/31/17 19:10 Red Blood Count 4.33, Mean Corpuscular Volume 91.2, Mean Corpuscular Hemoglobin 31.2, Mean Corpuscular Hemoglobin Concent 34.2, Mean Platelet Volume 8.8, Neutrophils (%) (Auto) 67.7, Lymphocytes (%) (Auto) 21.5, Monocytes (%) (Auto) 10.2, Eosinophils (%) (Auto) 0.4, Basophils (%) (Auto) 0.1, Neutrophils # (Auto ) 4.69, Lymphocytes # (Auto) 1.49, Monocytes # (Auto) 0.71, Eosinophils # (Auto ) 0.03, Basophils # (Auto) 0.01 01/31/17 19:10 Test 01/31/17 19:10 01/31/17 19:26 White Blood Count 6.94 K/uL (4.8-10.8) Red Blood Count 4.33 M/uL (4.2-5.4) Hemoglobin 13.5 g/dL (12.0-16.0) Hematocrit 39.5 % (37-47) Mean Corpuscular Volume 91.2 fL (80-100) Mean Corpuscular Hemoglobin 31.2 pg (25-34) Mean Corpuscular Hemoglobin Concent 34.2 g/dl (32-36) Platelet Count 390 K/uL (130-400) Mean Platelet Volume 8.8 fL (7.4-10.4) Neutrophils (%) (Auto) 67.7 % Lymphocytes (%) (Auto) 21.5 % Monocytes (%) (Auto) 10.2 % Eosinophils (%) (Auto) 0.4 % Basophils (%) (Auto) 0.1 % Neutrophils # (Auto) 4.69 K/uL (1.4-6.5) Lymphocytes # (Auto) 1.49 K/uL (1.2-3.4) Monocytes # (Auto) 0.71 K/uL (0.11-0.59) Eosinophils # (Auto) 0.03 K/uL (0-0.5) Basophils # (Auto) 0.01 K/uL (0-0.2) RDW Standard Deviation 45.4 fL (36.4-46.3) RDW Coefficient of Variation 13.8 % (11.5-14.5) Immature Granulocyte % (Auto) 0.1 % Immature Granulocyte # (Auto) 0.01 K/uL (0.00-0.02) Anion Gap 11.0 mmol/L (3-11) Est Creatinine Clear Calc Drug Dose 53.5 ml/min Estimated GFR () 60.2 Estimated GFR (Non- 51.9 BUN/Creatinine Ratio 6.3 (10-20) Calcium Level 8.3 mg/dl (8.5-10.1) Total Bilirubin 0.2 mg/dl (0.2-1) Direct Bilirubin < 0.1 mg/dl (0-0.2) Aspartate Amino Transf (AST/SGOT) 15 U/L (15-37) Alanine Aminotransferase (ALT/SGPT) 16 U/L (12-78) Alkaline Phosphatase 154 U/L (45-117) Total Protein 6.7 gm/dl (6.4-8.2) Albumin 3.1 gm/dl (3.4-5.0) Urine Color YELLOW Urine Appearance CLEAR (CLEAR) Urine pH 7.0 (4.5-7.5) Urine Specific [place] 1.017 (1.000-1.030) Urine Protein NEG (NEG) Urine Glucose (UA) NEG (NEG) Urine Ketones NEG (NEG) Urine Occult Blood NEG (NEG) Urine Nitrite NEG (NEG) Urine Bilirubin NEG (NEG) Urine Urobilinogen NEG (NEG) Urine Leukocyte Esterase SMALL (NEG) Urine WBC (Auto) 1-5 /hpf (0-5) Urine RBC (Auto) 0-4 /hpf (0-4) Urine Hyaline Casts (Auto) 1-5 /lpf (0-5) Urine Epithelial Cells (Auto) 10-20 /lpf (0-5) Urine Bacteria (Auto) 1+ (NEG) Urine Renal Epithelial Cells /lpf (0-5) Laboratory results per my review. Medications Administered Medications (Trade) Dose Ordered Sig/Valente Route Start Time Stop Time Status Last Admin Dose Admin Ceftriaxone Sodium (Rocephin Inj) 1 gm NOW STAT IV 01/31/17 18:13 01/31/17 18:14 DC 01/31/17 18:58 1 GM Sodium Chloride 2,000 ml @ 999 mls/hr Q2H1M STAT IV 01/31/17 18:29 01/31/17 20:29 DC 01/31/17 18:58 999 MLS/HR Acetaminophen (Tylenol Tab) 1,000 mg NOW STAT PO 01/31/17 18:43 01/31/17 18:44 DC 01/31/17 18:59 1,000 MG Promethazine HCl 25 mg/Sodium Chloride 51 ml @ 204 mls/hr ONE ONCE IV 01/31/17 19:00 01/31/17 19:14 DC 01/31/17 19:33 204 MLS/HR Morphine Sulfate (MoRPHine SULFATE INJ) 4 mg NOW STAT IV 01/31/17 19:49 01/31/17 19:50 DC 01/31/17 19:55 4 MG Piperacillin Sod/ Tazobactam Sod 3.375 gm/Dextrose 115 ml @ 230 mls/hr NOW STAT IV 01/31/17 20:29 01/31/17 20:58 01/31/17 20:43 230 MLS/HR ECG Indication: tachycardia Rate (beats per minute): 99 Rhythm: sinus rhythm Findings: PAC, Q waves (Inferior), left axis deviation Comparison ECG Date: 12/19/16 Change: no significant change ED Course ED COURSE: Vital signs were reviewed and showed tachycardic, hypertensive The patients medical record was reviewed The above diagnostic studies were performed and reviewed. ED treatments and interventions as stated above. 1754: The patient was evaluated in room A10. A complete history and physical examination was performed by the medical student. 1812: Ordered Rocephin Inj 1 gm IV. 1814: The patient was evaluated in room A10. A complete history and physical examination was performed. 1828: Ordered Sodium Chloride 2000 ml @ 999 mls/hr IV. 1842: Ordered Tylenol Tab 1000 mg PO. 1899: Ordered Promethazine HCl 25 mg/Sodium Chloride 51 ml @ 204 mls/hr IV. 1908: I reevaluated the patient and updated her at this time. She declined an x -ray. 1948: Ordered Morphine Sulfate 4 mg IV. 1819: Upon reevaluation, the patient is resting comfortably.I discussed my findings with the patient and she understands and agrees with the treatment plan. Based on the patients age, coexisting illnesses, exam and lab findings the decision to treat as an outpatient was made. The patient remained stable while under my care. 2022: Ordered Zosyn IV 3.375 gm IV. 2025: I discussed the patients case with Dr. Cunningham, Infectious Disease. He states that the patient should be evaluated in the hospital and given IV antibiotics. 2027: I discussed the new plan with the patient and she is in agreement. She will be evaluated for further treatment. 2028: I discussed the patient's case with Panda Marrufo. He is going to evaluate the patient for further treatment. Medical Decision Differential diagnoses includes but is not limited to gastritis, peptic ulcer disease, GERD, gallbladder disease, pancreatitis, small bowel obstruction, acute coronary syndrome, pericarditis, ischemic bowel, irritable bowel disease, irritable bowel syndrome, appendicitis, diverticulitis, malignancy, hernia, urinary tract infection, torsion, perforation, trauma, infectious. Patient is a 66-year-old female who was diagnosed with a pseudomonas UTI at the end of December. She is admitted and discharged on Cipro. Her symptoms resolved. She finished the Cipro mid last week. Her symptoms recurred this past with urinary frequency, urgency and dysuria. No fevers. Upon presentation she was tachycardic. CBC along with BMP was unremarkable. UA has leukocytes along with +1 bacteria. There were small amount of epithelial cells. With her symptoms and being treated as an outpatient with Cipro which was intermediate and sensitivity to pseudomonas I favor that this is likely an untreated UTI. Patient was placed on Zosyn. I discussed case with ID who recommended admission for IV antibiotics. Case was discussed with internal medicine. She did have mild lower abdominal pain but has no appendix or gallbladder. There is no rebound or peritonitis. Medication Reconcilliation Current Medication List: was personally reviewed by me Blood Pressure Screening Patient's blood pressure: Elevated blood pressure Blood pressure disposition: Elevated BP felt to be situational, Did not require urgent referral Consults Time Called: 2022 Consulting Physician: Dr. Cunningham, Infectious Disease Returned Call: 2025 I discussed the patients case with Dr. Cunningham, Infectious Disease. He states that the patient should be evaluated in the hospital and given IV antibiotics. Additional Consults: Time Called: 2027 Consulted Physician: Panda Marrufo Returned Call: 2028 Additional Comments: I discussed the patient's case with Panda Marrufo. He is going to evaluate the patient for further treatment. Impression Primary Impression: UTI (urinary tract infection) Scribe Attestation The scribe's documentation has been prepared under my direction and personally reviewed by me in its entirety. I confirm that the note above accurately reflects all work, treatment, procedures, and medical decision making performed by me. Departure Information Dispostion Being Evaluated By Hospitalist Referrals No Doctor, Assigned (PCP) Problem Qualifiers Primary Impression: UTI (urinary tract infection) Urinary tract infection type: acute cystitis Hematuria presence: without hematuria Qualified Codes: N30.00 - Acute cystitis without hematuria
[2017-01-31] MEDS ORDERED: ONDANSETRON INJ 2 MG/ML 2 ML VIAL IV PRN (22:00)
[2017-01-31] MEDS ORDERED: ACETAMINOPHEN 325 MG TAB PO PRN (22:00)
[2017-01-31] MEDS ORDERED: MoRPHine SULFATE 2 MG/ML CARP IV STA (22:13)
[2017-01-31] MEDS ORDERED: ALBUTEROL HFA 8 GM INHALER INH PRN (22:15)
[2017-01-31] MEDS ORDERED: CLONIDINE HCL 0.1 MG TAB PO PRN (22:15)
[2017-01-31] MEDS ORDERED: MoRPHine SULFATE 2 MG/ML CARP ONE (22:16)
[2017-01-31 23:50] VITALS: BP 140/92; PULSE 96; TEMP 37.1; Ht 160 cm; Wt 92.0 kg
[2017-02-01] MEDS ORDERED: PIPERACILL/TAZOBAC CONSULT ACTIVE PRN (00:15)
[2017-02-01] MEDS ORDERED: NURSING VERBAL MED ORDER ONE (00:45)
[2017-02-01] MEDS ORDERED: LORAZEPAM 1 MG TAB ONE (00:51)
[2017-02-01] MEDS ORDERED: LORAZEPAM 1 MG TAB PO STA (00:54)
[2017-02-01] MEDS: TRAMADOL HCL 50 MG TAB PO PRN ×4 (00:57→21:10)
[2017-02-01] MEDS: PIPERACILL/TAZOBAC IV 4.5 GM in DEXTROSE 5% 100ML 100 ML IV SCH ×2 (02:21→10:36)
[2017-02-01 02:40] VITALS: BP 139/93; PULSE 64
--- NOTE | 2017-02-01 03:10 | HISTORY & PHYSICAL EXAMINATION ---
DATE OF ADMISSION: 01/31/2017 PRIMARY CARE PHYSICIAN: Dr. Mckeon. CHIEF COMPLAINT: Urinary frequency with dysuria, fever and chills since last. HISTORY OF PRESENT COMPLAINT: She is a 66-year-old female with significant past medical history including paroxysmal supraventricular tachycardia, esophageal reflux, recurrent UTI secondary to pseudomonas, history of thoracic and lumbar neuritis, fibromyalgia, iron-deficiency anemia, anxiety, history of cerebral thrombosis without infarction, hyperlipidemia, hypertension and also TIA in the past. Apparently was in hospital in December. During that time, she has had UTI that was secondary to pseudomonas. She was intermittently sensitive to Cipro and she was sent home on Cipro. She finished her course of antibiotic. Since last, she has been complaining of weakness with symptoms of typical UTI with frequency, dysuria and urgency. She did have fever with chills. Condition got worse today with nausea. She came to the Emergency Room for further evaluation. In the ER, she was hemodynamically stable. Her blood pressure was noted to be high at 172/111. Her blood counts were unremarkable, but her UA did show leukocyte esterase, though white count was 1-5 and urine bacteria was 1+. Given the history of recent pseudomonas UTI and typical symptoms, she was started on intravenous Zosyn and was advised for admission. PAST MEDICAL HISTORY: Significant for PSVT, chronic sinusitis, esophageal reflux, hypertension, hyperlipidemia, anxiety with stress, fibromyalgia, iron deficiency anemia, history of cerebral thrombosis without infarction and history of TIA. PAST SURGICAL HISTORY: Significant for appendectomy as a child, arthroplasty right knee, right hip TKR, left hip TKR, carpal tunnel surgery both sides, laparoscopic gastric bypass surgery, cholecystectomy, left shoulder surgery in 2011. FAMILY HISTORY: Mother had Crohn's disease and hypertension. Father of a stroke, he had diabetes too. SOCIAL HISTORY: Is . She never used any tobacco. She drinks alcohol occasionally and is otherwise ambulant. ALLERGIES: SHE IS ALLERGIC TO ATORVASTATIN, ROSUVASTATIN, C1 PIGMENT BLUE, i.e., CYMBALTA, GABAPENTIN, MORPHINE AND NSAIDS. MEDICATIONS: She has been on albuterol HFA as directed, Plavix 75 mg daily, vitamin B12 1000 mcg IM injection every 3 months, doxepin hydrochloride 50 mg daily, Premarin 1 application as directed, lorazepam 1 mg daily, Cozaar 100 mg daily, metoclopramide 5 mg p.o. b.i.d., metoprolol succinate 25 mg tablet 12.5 in the morning, Zofran 4 mg q. 8 hourly p.r.n., Protonix 40 mg daily, tramadol 50 mg q. 6 hourly p.r.n., Effexor extended release 75 mg daily, biotin 10 mg daily, cyclosporine ophthalmic solution 0.05% one drop b.i.d., Flonase 2 sprays each nostril daily, lactobacillus 1 capsule daily and multivitamin 1 tablet daily. REVIEW OF SYSTEMS: Other systemic review unremarkable except those mentioned in history of present complaint. PHYSICAL EXAMINATION: GENERAL: On examination in the Emergency Room, she was not having any acute distress. VITAL SIGNS: Temperature 37.4, pulse was initially 108, that came down to 87, respiration was 25, blood pressure noted, oxygen saturation 96% on room air. HEENT: Unremarkable. NECK: Supple. No JVD, no bruit. CHEST: Decreased breath sounds, but no wheezing and/or crackles. HEART: S1, S2, regular, no murmur. ABDOMEN: Soft, benign, mildly tender in the hypogastrium. Renal angles were not tender. Bowel sounds present. EXTREMITIES: Trace edema bilaterally. MUSCULOSKELETAL: Did not show any acute arthritis involving any joint. CENTRAL NERVOUS SYSTEM: She was alert, awake, oriented x3. No focal sensory and/or motor deficit appreciated. LABORATORY DATA: Noted today, white count was 6.94, H&H 13.5/39.5, platelet was 319. Sodium 136, potassium 3.6, chloride 101, carbon dioxide 24, BUN 7, creatinine 1.10, random glucose 105, calcium 8.3. LFTs unremarkable except alkaline phosphatase 154, albumin was 3.1. UA examination, color yellow, otherwise clear, leukocyte esterase small, white count 1-5 and bacteria 1+. IMPRESSION AND PLAN: 1. Recurrent urinary tract infection. Recent pseudomonas urinary tract infection in December, typical symptoms of urinary tract infection. Urine was sent for culture and she was started on intravenous Zosyn. She will be also getting small amount of IV fluid. 2. History of paroxysmal supraventricular tachycardia, but no acute symptoms at this time. Heart rate seems to be stable. Continue with her current cardiac medications. 3. Hypertension. Blood pressure seems to be upper side of normal. We will continue current medications and may need to add additional medicine for p.r.n. blood pressure control. 4. Hyperlipidemia. She has not been taking any medications. SHE IS ALLERGIC TO STATINS. 5. History of cerebrovascular accident with transient ischemic attack. She has been on Plavix, we will continue with that. 6. Depression with anxiety. Continue with Effexor. 7. Fibromyalgia. No acute symptoms at this time. 8. Gastrointestinal prophylaxis with Protonix. 9. Deep venous thrombosis prophylaxis with subcutaneous heparin. 10. Code status. She will be full code. In my clinical assessment, the beneficiary meets criteria as per CMS for 2-midnight stay in the hospital. Can not figure out why this document is coming so late . Will Sign anyway. Dr Svetlana FALLON
[2017-02-01 07:12] VITALS: BP 125/79; PULSE 72; TEMP 37.2; O2SAT 97
[2017-02-01] MEDS: RESTASIS~ORDER AWAITING ACTION SCH ×4 (07:47→23:52)
[2017-02-01] MEDS ORDERED: BIOTIN 10 MG PO SCH (08:00)
[2017-02-01] MEDS: LORAZEPAM 1 MG TAB PO SCH (08:21)
[2017-02-01] MEDS: FLINTSTONES COMPLETE CHEWABLE TAB PO SCH (08:21)
[2017-02-01] MEDS: METOPROLOL SUCC 25MG EXT REL TAB PO SCH (08:22)
[2017-02-01] MEDS: PANTOprazole SOD 40 MG TAB PO SCH (08:22)
[2017-02-01] MEDS: DOXEPIN HCL 50 MG CAP PO SCH ×2 (08:22→19:57)
[2017-02-01] MEDS: VENLAFAXINE HCL XR 75 MG CAPXR PO SCH (08:22)
[2017-02-01] MEDS: CLOPIDOGREL BISULFATE 75 MG TAB PO SCH (08:22)
[2017-02-01] MEDS: LOSARTAN POTASSIUM 50 MG TAB PO SCH (08:22)
[2017-02-01] MEDS: LACTOBACILLUS ACIDOPHILUS (FLORANEX) TAB PO SCH (08:22)
[2017-02-01] MEDS: METOCLOPRAMIDE HCL 5 MG TAB PO SCH ×2 (08:22→20:00)
[2017-02-01] MEDS ORDERED: ZOLPIDEM TARTRATE 5 MG TAB PO PRN (12:45)
[2017-02-01] MEDS ORDERED: PROMETHAZINE HCL INJ 12.5 MG in SODIUM CHLORIDE 0.9% 50ML 50 ML IV PRN (12:45)
--- NOTE | 2017-02-01 13:04 | Progress Note ---
Internal Med Progress Note Date of Service: Feb 01, 2017. Provider Documentation: SUBJECTIVE: complains persisted urinary frequency , dysuria , symptom improved a bit since yesterday mention of having nausea, chills no fever had loose bowel movement this AM , concerned for C Diff stool for C diff assay ordered OBJECTIVE: Vital Signs-as noted below Exam: General-no sign of distress Eyes-sclera non icteric ENT-NAD Neck-no JVD Lungs-CTA Heart-regular S1/S2 Abdomen-soft, non tender Extremities-no lower ext edema , or rash Neuro-AAO x3, no focal deficit Lab data as noted below. ASSESSMENT & PLAN: DYSURIA /PRIOR HX OF UTI . Recent pseudomonas urinary tract infection in December Presented with typical symptoms of urinary tract infection. UA + leukocyte esterase empirically stated on Zosyn urine culture shows < 1000 colony growth HTN : BP stable cont on Cozaar and Metoprolol HX OF CVA : no focal deficit cont on Plavix DEPRESSION /ANXIETY DISORDER : cont Effexor full code DVT PROPHYLAXIS sub q heparin DISPOSITION discharge to home when medically stable Vital Signs: Date Time Temp Pulse Resp B/P (MAP) Pulse Ox O2 Delivery O2 Flow Rate FiO2 02/01/17 08:00 Room Air 02/01/17 07:12 37.2 72 16 125/79 (94) 97 Room Air 01/31/17 23:50 37.1 96 18 140/92 Room Air 01/31/17 22:59 71 18 161/83 95 Room Air 01/31/17 19:38 87 25 172/111 96 Room Air 01/31/17 19:08 90 01/31/17 19:02 96 18 162/126 95 Room Air 01/31/17 18:22 98 150/106 112 125/98 114 139/100 01/31/17 18:21 95 Room Air 01/31/17 18:21 95 Room Air 01/31/17 17:52 37.4 108 20 132/85 95 Lab Results: Results Past 24 Hours Test 01/31/17 19:10 01/31/17 19:26 Range/Units White Blood Count 6.94 4.8-10.8 K/uL Red Blood Count 4.33 4.2-5.4 M/uL Hemoglobin 13.5 12.0-16.0 g/dL Hematocrit 39.5 37-47 % Mean Corpuscular Volume 91.2 80-100 fL Mean Corpuscular Hemoglobin 31.2 25-34 pg Mean Corpuscular Hemoglobin Concent 34.2 32-36 g/dl Platelet Count 390 130-400 K/uL Mean Platelet Volume 8.8 7.4-10.4 fL Neutrophils (%) (Auto) 67.7 % Lymphocytes (%) (Auto) 21.5 % Monocytes (%) (Auto) 10.2 % Eosinophils (%) (Auto) 0.4 % Basophils (%) (Auto) 0.1 % Neutrophils # (Auto) 4.69 1.4-6.5 K/uL Lymphocytes # (Auto) 1.49 1.2-3.4 K/uL Monocytes # (Auto) 0.71 0.11-0.59 K/uL Eosinophils # (Auto) 0.03 0-0.5 K/uL Basophils # (Auto) 0.01 0-0.2 K/uL RDW Standard Deviation 45.4 36.4-46.3 fL RDW Coefficient of Variation 13.8 11.5-14.5 % Immature Granulocyte % (Auto) 0.1 % Immature Granulocyte # (Auto) 0.01 0.00-0.02 K/uL Sodium Level 136 136-145 mmol/L Potassium Level 3.6 3.5-5.1 mmol/L Chloride Level 101 98-107 mmol/L Carbon Dioxide Level 24 21-32 mmol/L Anion Gap 11.0 3-11 mmol/L Blood Urea Nitrogen 7 7-18 mg/dl Creatinine 1.10 0.60-1.20 mg/dl Est Creatinine Clear Calc Drug Dose 53.5 ml/min Estimated GFR () 60.2 Estimated GFR (Non- 51.9 BUN/Creatinine Ratio 6.3 10-20 Random Glucose 105 70-99 mg/dl Calcium Level 8.3 8.5-10.1 mg/dl Total Bilirubin 0.2 0.2-1 mg/dl Direct Bilirubin < 0.1 0-0.2 mg/dl Aspartate Amino Transf (AST/SGOT) 15 15-37 U/L Alanine Aminotransferase (ALT/SGPT) 16 12-78 U/L Alkaline Phosphatase 154 45-117 U/L Total Protein 6.7 6.4-8.2 gm/dl Albumin 3.1 3.4-5.0 gm/dl Urine Color YELLOW Urine Appearance CLEAR CLEAR Urine pH 7.0 4.5-7.5 Urine Specific [place] 1.017 1.000-1.030 Urine Protein NEG NEG Urine Glucose (UA) NEG NEG Urine Ketones NEG NEG Urine Occult Blood NEG NEG Urine Nitrite NEG NEG Urine Bilirubin NEG NEG Urine Urobilinogen NEG NEG Urine Leukocyte Esterase SMALL NEG Urine WBC (Auto) 1-5 0-5 /hpf Urine RBC (Auto) 0-4 0-4 /hpf Urine Hyaline Casts (Auto) 1-5 0-5 /lpf Urine Epithelial Cells (Auto) 10-20 0-5 /lpf Urine Bacteria (Auto) 1+ NEG Urine Renal Epithelial Cells 0-5 /lpf Microbiology Results 01/31/17 Urine Culture - Preliminary, Resulted NO GROWTH - LESS THAN 1,000 COLONIES/...
[2017-02-01] MEDS: HEPARIN SOD 5000 UNIT/0.5 ML CARP SQ SCH ×2 (13:23→19:59)
[2017-02-01 15:07] VITALS: BP 133/81; PULSE 70; TEMP 36.9; O2SAT 97
[2017-02-01 15:12] VITALS: BP 133/81; PULSE 70; O2SAT 96
[2017-02-01] MEDS: PIPERACILL/TAZOBAC IV 3.375 GM in DEXTROSE 5% 100ML IV SCH (17:55)
[2017-02-01] MEDS ORDERED: PREMARIN VAG CRM 14 APPLN/30 GM TUBE PV SCH (21:00)
[2017-02-01 23:22] VITALS: BP 103/70; PULSE 83; TEMP 37; O2SAT 97
[2017-02-02] MEDS: PIPERACILL/TAZOBAC IV 3.375 GM in DEXTROSE 5% 100ML IV SCH ×2 (02:35→09:51)
[2017-02-02] MEDS: TRAMADOL HCL 50 MG TAB PO PRN ×3 (03:08→15:53)
[2017-02-02] MEDS: HEPARIN SOD 5000 UNIT/0.5 ML CARP SQ SCH ×2 (05:54→13:36)
[2017-02-02] MEDS: RESTASIS~ORDER AWAITING ACTION SCH ×2 (07:33→15:04)
[2017-02-02] MEDS: FLINTSTONES COMPLETE CHEWABLE TAB PO SCH (07:42)
[2017-02-02] MEDS: VENLAFAXINE HCL XR 75 MG CAPXR PO SCH (07:42)
[2017-02-02] MEDS: DOXEPIN HCL 50 MG CAP PO SCH (07:42)
[2017-02-02] MEDS: LORAZEPAM 1 MG TAB PO SCH (07:42)
[2017-02-02] MEDS: METOCLOPRAMIDE HCL 5 MG TAB PO SCH (07:42)
[2017-02-02] MEDS: LOSARTAN POTASSIUM 50 MG TAB PO SCH (07:42)
[2017-02-02] MEDS: LACTOBACILLUS ACIDOPHILUS (FLORANEX) TAB PO SCH (07:42)
[2017-02-02] MEDS: CLOPIDOGREL BISULFATE 75 MG TAB PO SCH (07:42)
[2017-02-02] MEDS: METOPROLOL SUCC 25MG EXT REL TAB PO SCH (07:43)
[2017-02-02] MEDS: PANTOprazole SOD 40 MG TAB PO SCH (07:43)
[2017-02-02 07:46] VITALS: BP 134/80; PULSE 75; TEMP 36.9; O2SAT 95
[2017-02-02 07:48] LABS: CREATININE 0.85 mg/dl (0.60-1.20)
[2017-02-02] MEDS ORDERED: KFL250 PO (13:27)
--- NOTE | 2017-02-02 13:29 | Discharge Instructions ---
Discharge Instructions Date of Service Feb 02, 2017. Admission Reason for Admission: Pseudomonas Uti, Recurrent Uti Discharge Discharge Diagnosis / Problem: URINARY SYMPTOM /HX OF UTI Discharge Goals Goal(s): Improve disease control, Diagnostic testing Activity Recommendations Activity Limitations: resume your previous activity Lifting Limitations: none Exercise/Sports Limitations: none Shower/Bathe: no limitations Driving or Machine Use: no limitations . Instructions / Follow-Up Instructions / Follow-Up HOSPITAL FOLLOW UP : 02/05/2017 11:20 AM Jessica Ward DO General Internal Medicine [facility] Diet Patient's current hospital diet: Regular Diet Discharge Diet Recommended Diet: Regular Diet Pending Studies Studies pending at discharge: no Laboratory Results Hemoglobin A1c Test 12/04/16 10:22 Range/Units Estimated Average Glucose 134 mg/dl Hemoglobin A1c 6.3 H 4.5-5.6 % Medical Emergencies . Who to Call and When: Medical Emergencies: If at any time you feel your situation is an emergency, please call 911 immediately. . Non-Emergent Contact Non-Emergency issues call your: Primary Care Provider . . "Provider Documentation" section prepared by Brisa Portillo. . VTE Core Measure Inpt VTE Proph given/why not?: Edin Yost, [facility]
[2017-02-02] MEDS: CEPHALEXIN MONOHYDRATE 250 MG CAP PO SCH ×2 (14:10→15:53)
--- NOTE | 2017-02-02 15:34 | Progress Note ---
Internal Med Progress Note Date of Service: Feb 02, 2017. Provider Documentation: SUBJECTIVE: urinary symptom has improved mentions having one episode of chills this AM no fever no diarrhea or loose stool today OBJECTIVE: Vital Signs-as noted below Exam: General-no sign of distress Eyes-sclera non icteric ENT-NAD Neck-no JVD Lungs-CTA Heart-regular S1/S2 Abdomen-soft, non tender Extremities-no lower ext edema , or rash Neuro-AAO x3, no focal deficit Lab data as noted below. ASSESSMENT & PLAN: DYSURIA /PRIOR HX OF UTI . Recent pseudomonas urinary tract infection in December Presented with typical symptoms of urinary tract infection. UA + leukocyte esterase empirically stated on Zosyn urine culture shows < 1000 colony growth improvement of urinary symptom ABx changed to PO Keflex stable to be discharged home today HTN : BP stable cont on Cozaar and Metoprolol HX OF CVA : no focal deficit cont on Plavix DEPRESSION /ANXIETY DISORDER : cont Effexor full code DVT PROPHYLAXIS sub q heparin DISPOSITION discharge to home today Vital Signs: Date Time Temp Pulse Resp B/P (MAP) Pulse Ox O2 Delivery O2 Flow Rate FiO2 02/02/17 08:00 Room Air 02/02/17 07:46 36.9 75 16 134/80 (98) 95 02/02/17 00:00 Room Air 02/01/17 23:22 37.0 83 16 103/70 (81) 97 Room Air 02/01/17 16:00 Room Air Lab Results: Results Past 24 Hours Test 02/02/17 06:59 Range/Units Creatinine 0.85 0.60-1.20 mg/dl Est Creatinine Clear Calc Drug Dose 69.2 ml/min Estimated GFR () 82.2 Estimated GFR (Non- 70.9 Microbiology Results 02/02/17 C.difficile Toxin B Gene (PCR) - Final, Complete No C. difficile toxin B gene detected
--- NOTE | 2017-02-02 15:35 | Discharge Summary ---
Discharge Summary Date of Service Feb 02, 2017. Discharge Summary Admission Date: Jan 31, 2017 at 21:58 Discharge Date: Feb 02, 2017 Discharge Disposition: Home Principal Diagnosis: URINARY SYMPTOM /HX OF UTI Medication Reconciliation New Medications: Cephalexin Monohydrate (Cephalexin) 250 Mg Cap 250 MG PO QID for 3 Days, #12 CAP Continued Medications: Albuterol Hfa (Ventolin Hfa) 200 Puffs/64669 Mcg Aers 2 PUFFS INH Q6H PRN for Wheezing Biotin (Cvs Biotin) 10 Mg Cap 10 MG PO QAM Clopidogrel Bisulfate (Clopidogrel) 75 Mg Tab 75 MG PO QAM Cyanocobalamin (Cyanocobalamin) 1,000 Mcg/Ml Inj 1000 MCG IM Q3 MONTHS Cyclosporine (Ophth) (Restasis) 0.05 % Emu 1 DROP OPB BID Doxepin Hcl (Sinequan) 50 Mg Cap 50 MG PO BID Estrogens, Conjugated (Premarin) 14 Appln/30 Gm Cr 1 APPLN PV HS Flunisolide (Nasal) (Flunisolide) 0.025 % Spr 2 SPRY SALOMÓN DAILY PRN for Allergy Symptoms Lactobacillus Rhamnosus (GG) (Culturelle) 10 B Cell Cap 1 CAP PO DAILY Lorazepam (Ativan) 1 Mg Tab 1 MG PO QAM, TAB Losartan Potassium (Cozaar) 100 Mg Tab 100 MG PO DAILY Metoclopramide HCl (Metoclopramide HCl) 5 Mg Tab 5 MG PO BID TAKE THIS MEDICATION TWICE DAILY 30 MINUTES BEFORE MORNING AND EVENING MEALS. Metoprolol Succinate (Metoprolol Succinate ER) 25 Mg Tabcr 12.5 MG PO QAM Ondansetron (Ondansetron HCl) 8 Mg Tab 4 MG PO Q8 PRN for Nausea Pantoprazole (Pantoprazole Sodium) 40 Mg Tab 40 MG PO QAM Pediatric Multiple Vitamin W/ (Multivitamin Gummies Chil) 1 Chw Chw 1 TAB PO QAM Tramadol HCl (Tramadol HCl) 50 Mg Tab 50 MG PO Q6H PRN for Pain Venlafaxine Hcl (Effexor Extended Rel) 75 Mg Capcr 75 MG PO DAILY Admission Information HPI (per Admitting provider): DATE OF ADMISSION: 01/31/2017 PRIMARY CARE PHYSICIAN: Dr. Mckeon. CHIEF COMPLAINT: Urinary frequency with dysuria, fever and chills since last. HISTORY OF PRESENT COMPLAINT: She is a 66-year-old female with significant past medical history including paroxysmal supraventricular tachycardia, esophageal reflux, recurrent UTI secondary to pseudomonas, history of thoracic and lumbar neuritis, fibromyalgia, iron-deficiency anemia, anxiety, history of cerebral thrombosis without infarction, hyperlipidemia, hypertension and also TIA in the past. Apparently was in hospital in December. During that time, she has had UTI that was secondary to pseudomonas. She was intermittently sensitive to Cipro and she was sent home on Cipro. She finished her course of antibiotic. Since last, she has been complaining of weakness with symptoms of typical UTI with frequency, dysuria and urgency. She did have fever with chills. Condition got worse today with nausea. She came to the Emergency Room for further evaluation. In the ER, she was hemodynamically stable. Her blood pressure was noted to be high at 172/111. Her blood counts were unremarkable, but her UA did show leukocyte esterase, though white count was 1-5 and urine bacteria was 1+. Given the history of recent pseudomonas UTI and typical symptoms, she was started on intravenous Zosyn and was advised for admission. PAST MEDICAL HISTORY: Significant for PSVT, chronic sinusitis, esophageal reflux, hypertension, hyperlipidemia, anxiety with stress, fibromyalgia, iron deficiency anemia, history of cerebral thrombosis without infarction and history of TIA. PAST SURGICAL HISTORY: Significant for appendectomy as a child, arthroplasty right knee, right hip TKR, left hip TKR, carpal tunnel surgery both sides, laparoscopic gastric bypass surgery, cholecystectomy, left shoulder surgery in 2011. FAMILY HISTORY: Mother had Crohn's disease and hypertension. Father of a stroke, he had diabetes too. SOCIAL HISTORY: Is . She never used any tobacco. She drinks alcohol occasionally and is otherwise ambulant. ALLERGIES: SHE IS ALLERGIC TO ATORVASTATIN, ROSUVASTATIN, C1 PIGMENT BLUE, i.e., CYMBALTA, GABAPENTIN, MORPHINE AND NSAIDS. MEDICATIONS: She has been on albuterol HFA as directed, Plavix 75 mg daily, vitamin B12 1000 mcg IM injection every 3 months, doxepin hydrochloride 50 mg daily, Premarin 1 application as directed, lorazepam 1 mg daily, Cozaar 100 mg daily, metoclopramide 5 mg p.o. b.i.d., metoprolol succinate 25 mg tablet 12.5 in the morning, Zofran 4 mg q. 8 hourly p.r.n., Protonix 40 mg daily, tramadol 50 mg q. 6 hourly p.r.n., Effexor extended release 75 mg daily, biotin 10 mg daily, cyclosporine ophthalmic solution 0.05% one drop b.i.d., Flonase 2 sprays each nostril daily, lactobacillus 1 capsule daily and multivitamin 1 tablet daily. REVIEW OF SYSTEMS: Other systemic review unremarkable except those mentioned in history of present complaint. Physical Exam (per Admitting): PHYSICAL EXAMINATION: GENERAL: On examination in the Emergency Room, she was not having any acute distress. VITAL SIGNS: Temperature 37.4, pulse was initially 108, that came down to 87, respiration was 25, blood pressure noted, oxygen saturation 96% on room air. HEENT: Unremarkable. NECK: Supple. No JVD, no bruit. CHEST: Decreased breath sounds, but no wheezing and/or crackles. HEART: S1, S2, regular, no murmur. ABDOMEN: Soft, benign, mildly tender in the hypogastrium. Renal angles were not tender. Bowel sounds present. EXTREMITIES: Trace edema bilaterally. MUSCULOSKELETAL: Did not show any acute arthritis involving any joint. CENTRAL NERVOUS SYSTEM: She was alert, awake, oriented x3. No focal sensory and/or motor deficit appreciated. Hospital Course DYSURIA /PRIOR HX OF UTI . Recent pseudomonas urinary tract infection in December Presented with typical symptoms of urinary tract infection. UA + leukocyte esterase empirically stated on Zosyn urine culture shows < 1000 colony growth improvement of urinary symptom ABx changed to PO Keflex stable to be discharged home today HTN : BP stable cont on Cozaar and Metoprolol HX OF CVA : no focal deficit cont on Plavix DEPRESSION /ANXIETY DISORDER : cont Effexor full code DVT PROPHYLAXIS sub q heparin DISPOSITION discharge to home today Total time spent on discharge = 35mins This includes examination of the patient, discharge planning, medication reconciliation, and communication with other providers. Discharge Instructions Discharge Instructions Date of Service Feb 02, 2017. Admission Reason for Admission: Pseudomonas Uti, Recurrent Uti Discharge Discharge Diagnosis / Problem: URINARY SYMPTOM /HX OF UTI Discharge Goals Goal(s): Improve disease control, Diagnostic testing Activity Recommendations Activity Limitations: resume your previous activity Lifting Limitations: none Exercise/Sports Limitations: none Shower/Bathe: no limitations Driving or Machine Use: no limitations . Instructions / Follow-Up Instructions / Follow-Up HOSPITAL FOLLOW UP : 02/05/2017 11:20 AM Jessica Ward DO General Internal Medicine [facility] Current Hospital Diet Patient's current hospital diet: Regular Diet Discharge Diet Recommended Diet: Regular Diet Pending Studies Studies pending at discharge: no Laboratory Results Hemoglobin A1c Test 12/04/16 10:22 Range/Units Estimated Average Glucose 134 mg/dl Hemoglobin A1c 6.3 H 4.5-5.6 % Medical Emergencies . Who to Call and When: Medical Emergencies: If at any time you feel your situation is an emergency, please call 911 immediately. . Non-Emergent Contact Non-Emergency issues call your: Primary Care Provider . . "Provider Documentation" section prepared by Brisa Portillo. . VTE Core Measure Inpt VTE Proph given/why not?: Edin Yost, SCD's
[2017-02-02 15:41] VITALS: BP 134/80; PULSE 75; TEMP 36.9; O2SAT 95
== END 2017-02-02 16:00 | disposition home or self-care (01) | DRG 696 ==
LOC: C.EDB 17:51 → C.4E 21:58 → ENRESERV 22:57
PROVIDERS: ADMIT Internal Medicine; ATTEND Hospitalist
DX: R30.0 Dysuria (principal); E11.9 Type 2 diabetes mellitus without complications; K21.9 Gastro-esophageal reflux disease without esophagitis; E78.5 Hyperlipidemia, unspecified; I10 Essential (primary) hypertension; E66.01 Morbid (severe) obesity due to excess calories; Z79.899 Other long term (current) drug therapy; Z83.3 Family history of diabetes mellitus; Z79.02 Long term (current) use of antithrombotics/antiplatelets; Z86.73 Personal history of transient ischemic attack (TIA), and cerebral infarction without residual deficits; Z68.35 Body mass index [BMI] 35.0-35.9, adult

== ENCOUNTER 2017-02-07 06:38 | Emergency (ER) | payer MEDICARE, OTHER ==
[~2017-02-07] VITALS: Ht 160 cm; Wt 92.0 kg
[~2017-02-07 06:38] MED LIST changes: +ATV/1 PO; -ATV1 PO; -CPR500 PO; +EFFSR75 PO; +KFL250 PO; -LACT10CA3 PO; +LACT1CAP3 PO; +PRMVC PV; -TRAM-10 PO; +ULT50 PO
[2017-02-07 06:41] VITALS: TEMP 36.9; Ht 160 cm; Wt 92.0 kg
[2017-02-07] MEDS ORDERED: SODIUM CHLORIDE 0.9% 1000ML 1,000 ML IV STA (06:57)
[2017-02-07] MEDS ORDERED: ONDANSETRON 8 MG/54 ML D5W IV STA (06:57)
--- NOTE | 2017-02-07 07:24 | DIAGNOSTIC IMAGING REPORT ---
CHEST ONE VIEW PORTABLE CLINICAL HISTORY: Altered mental status. Weakness. COMPARISON STUDY: Chest CT and chest radiograph January 18, 2017. FINDINGS: Left shoulder arthroplasty, cholecystectomy clips and spinal fusion are incidentally noted. Cardiomediastinal silhouette is normal. There is no pneumothorax or pleural effusion. There is no consolidation or evidence of pulmonary edema. The appearance of the chest is unchanged. IMPRESSION: No acute cardiopulmonary findings. Electronically signed by: Everardo De La Torre M.D. 02/07/2017 7:23 AM Dictated Date/Time: 02/07/2017 7:22 AM
[2017-02-07 07:34] LABS: URINE APPEARANCE CLEAR (CLEAR); URINE BILIRUBIN NEG (NEG); URINE COLOR YELLOW; URINE NITRITE NEG (NEG); URINE PH 6.5 (4.5-7.5); URINE SPECIFIC GRAVITY 1.017 (1.000-1.030); UROBILINOGEN NEG (NEG); ZZUR CULT IF INDIC CLEAN CATCH NO
[2017-02-07 07:37] LABS: MANUAL MICROSCOPIC REQUIRED? NO; REVIEW REQ? NO
[2017-02-07 07:41] LABS: BASO % 0.2 %; BASO ABS # 0.01 K/uL (0-0.2); COMPLETE YES; EOS % 1.3 %; HEMATOCRIT 35.8 % (37-47); IG% 0.4 %; LYMPH % 25.7 %; LYMPH ABS # 1.16 K/uL (1.2-3.4); MEAN CELL VOLUME 91.3 fL (80-100); MEAN CORPUSCULAR HEMOGLOBIN 31.4 pg (25-34); MEAN CORPUSCULAR HGB CONC 34.4 g/dl (32-36); MEAN PLATELET VOLUME 8.6 fL (7.4-10.4); MONO % 7.3 %; NEUT % 65.1 %; PLATELET COUNT 314 K/uL (130-400); RED BLOOD COUNT 3.92 M/uL (4.2-5.4); WHITE BLOOD COUNT 4.52 K/uL (4.8-10.8)
[2017-02-07 07:48] LABS: BUN/CREATININE RATIO 6.9 (10-20); CALCIUM 8.7 mg/dl (8.5-10.1); CREATININE 0.64 mg/dl (0.60-1.20)
[2017-02-07 07:53] LABS: CKMB/CK RATIO 2.5 (0-3.0)
[2017-02-07] MEDS ORDERED: ACETAMINOPHEN 500 MG TAB PO STA (08:11)
[2017-02-07] MEDS ORDERED: POTASSIUM CHLORIDE 10 MEQ TABCR PO STA (08:11)
--- NOTE | 2017-02-07 08:19 | EMERGENCY ROOM VISIT NOTE ---
History Report prepared by Giulianaibdimitri: Lia Shultz Under the Supervision of: Dr. Basil Fisher D.O. First contact with patient: 06:52 Chief Complaint: ILLNESS Stated Complaint: NAUSEA,CHILLS,SWEATS,WEAKNESS History of Present Illness The patient is a 66 year old female who presents to the Emergency Room with complaints of worsening nausea for the past 3 weeks. She has tried taking Phenergan with no relief. She has not vomited. She was released from the hospital on January 18 after being treated for a UTI. She developed diarrhea after 2 courses of antibiotics and reports she finished Keflex 2 days ago, and her diarrhea resolved yesterday. Since she got home, has also been experiencing the chills, night sweats, a headache, abdominal pain and weakness. The patient has been seen here in the ED 3 times for her symptoms. 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 A total of 10 systems reviewed and were otherwise negative. Past Medical & Surgical Medical Problems: (1) Anxiety (2) Asthma (3) C. difficile diarrhea (4) DM2 (diabetes mellitus, type 2) (5) GERD (gastroesophageal reflux disease) (6) Hyperlipidemia (7) Hypertension (8) Morbid obesity (9) Pseudomonas urinary tract infection (10) Recurrent UTI (urinary tract infection) (11) Sacral back pain (12) Shoulder pain (13) UTI (urinary tract infection) Surgical Problems: (1) H/O gastric bypass (2) H/O hernia repair (3) H/O spinal fusion (4) History of carpal tunnel surgery (5) Previous section (6) S/P appendectomy (7) S/P cholecystectomy (8) S/p left shoulder surgery (9) S/P parathyroidectomy (10) S/P tonsillectomy and adenoidectomy (11) Total knee replacement status Family History Diabetes mellitus Gallbladder disease Heart disease Hypertension Social History Smoking Status: Never Smoker Alcohol Use: none Drug Use: none Marital Status: Housing Status: lives with significant other Occupation Status: retired Current/Historical Medications Scheduled Biotin (Cvs Biotin), 10 MG PO QAM Clopidogrel Bisulfate (Clopidogrel), 75 MG PO QAM Cyanocobalamin (Cyanocobalamin), 1,000 MCG IM Q3 MONTHS Cyclosporine (Ophth) (Restasis), 1 DROP OPB BID Doxepin Hcl (Sinequan), 50 MG PO BID Estrogens, Conjugated (Premarin), 1 APPLN PV HS Lactobacillus Rhamnosus (GG) (Culturelle), 1 CAP PO DAILY Lorazepam (Ativan), 1 MG PO QAM Losartan Potassium (Cozaar), 100 MG PO DAILY Metoclopramide HCl (Metoclopramide HCl), 5 MG PO BID Metoprolol Succinate (Metoprolol Succinate ER), 12.5 MG PO QAM Pantoprazole (Pantoprazole Sodium), 40 MG PO QAM Pediatric Multiple Vitamin W/ (Multivitamin Gummies Chil), 1 TAB PO QAM Venlafaxine Hcl (Effexor Extended Rel), 75 MG PO DAILY Scheduled PRN Albuterol Hfa (Ventolin Hfa), 2 PUFFS INH Q6H PRN for Wheezing Flunisolide (Nasal) (Flunisolide), 2 SPRY SALOMÓN DAILY PRN for Allergy Symptoms Ondansetron (Ondansetron HCl), 4 MG PO Q8 PRN for Nausea Tramadol HCl (Tramadol HCl), 50 MG PO Q6H PRN for Pain Allergies Coded Allergies: Atorvastatin (Verified Allergy, Unknown, myalgias per PCP note , 02/07/17) Rosuvastatin (Unverified Allergy, Unknown, MUSCLE ACHES, 02/07/17) CI Pigment Blue 63 (Verified Adverse Reaction, Mild, PSYCHOSIS, 02/07/17) Duloxetine (Verified Adverse Reaction, Mild, PSYCHOSIS, 02/07/17) Gabapentin (Verified Adverse Reaction, Mild, PSYCHOSIS, 02/07/17) Morphine (Verified Adverse Reaction, Mild, NAUSEA, 02/07/17) NSAIDs (Verified Adverse Reaction, Unknown, s/p bariatric surgery, 02/07/17 ) per gmg Physical Exam Vital Signs Date Time Temp Pulse Resp B/P (MAP) Pulse Ox O2 Delivery O2 Flow Rate FiO2 02/07/17 08:20 83 179/98 95 02/07/17 06:41 36.9 91 20 157/106 99 Room Air Physical Exam CONSTITUTIONAL/VITAL SIGNS: Reviewed / noted above. GENERAL: Non-toxic in appearance. INTEGUMENTARY: Warm, dry, and Olivia. HEAD: Normocephalic. EYES: without scleral icterus or trauma. ENT/OROPHARYNX: clear and moist. LYMPHADENOPATHY/NECK: Is supple without lymphadenopathy or meningismus. RESPIRATORY: Lungs clear and equal. CARDIOVASCULAR: Regular rate and rhythm. GI/ABDOMEN: Soft and nontender. No organomegaly or pulsatile mass. No rebound or guarding. Normal bowel sounds. EXTREMITIES: Warm and well perfused. BACK: No CVA tenderness. NEUROLOGICAL: Intact without focal deficits. PSYCHIATRIC: normal affect. MUSCULOSKELETAL: Normally developed with good muscle tone. Medical Decision & Procedures ER Provider Diagnostic Interpretation: Radiology results as stated below per my review and radiologist interpretation: CHEST ONE VIEW PORTABLE CLINICAL HISTORY: Altered mental status. Weakness. COMPARISON STUDY: Chest CT and chest radiograph January 18, 2017. FINDINGS: Left shoulder arthroplasty, cholecystectomy clips and spinal fusion are incidentally noted. Cardiomediastinal silhouette is normal. There is no pneumothorax or pleural effusion. There is no consolidation or evidence of pulmonary edema. The appearance of the chest is unchanged. IMPRESSION: No acute cardiopulmonary findings. Electronically signed by: Everardo De La Torre M.D. 02/07/2017 7:23 AM Laboratory Results 02/07/17 07:20 Red Blood Count 3.92, Mean Corpuscular Volume 91.3, Mean Corpuscular Hemoglobin 31.4, Mean Corpuscular Hemoglobin Concent 34.4, Mean Platelet Volume 8.6, Neutrophils (%) (Auto) 65.1, Lymphocytes (%) (Auto) 25.7, Monocytes (%) (Auto) 7.3, Eosinophils (%) (Auto) 1.3, Basophils (%) (Auto) 0.2, Neutrophils # (Auto) 2.94, Lymphocytes # (Auto) 1.16, Monocytes # (Auto) 0.33, Eosinophils # (Auto) 0.06, Basophils # (Auto) 0.01 02/07/17 07:20 Test 02/07/17 07:16 02/07/17 07:20 Urine Color YELLOW Urine Appearance CLEAR (CLEAR) Urine pH 6.5 (4.5-7.5) Urine Specific [place] 1.017 (1.000-1.030) Urine Protein NEG (NEG) Urine Glucose (UA) NEG (NEG) Urine Ketones NEG (NEG) Urine Occult Blood NEG (NEG) Urine Nitrite NEG (NEG) Urine Bilirubin NEG (NEG) Urine Urobilinogen NEG (NEG) Urine Leukocyte Esterase NEG (NEG) Urine WBC (Auto) 1-5 /hpf (0-5) Urine RBC (Auto) 0-4 /hpf (0-4) Urine Hyaline Casts (Auto) 1-5 /lpf (0-5) Urine Epithelial Cells (Auto) 10-20 /lpf (0-5) Urine Bacteria (Auto) NEG (NEG) White Blood Count 4.52 K/uL (4.8-10.8) Red Blood Count 3.92 M/uL (4.2-5.4) Hemoglobin 12.3 g/dL (12.0-16.0) Hematocrit 35.8 % (37-47) Mean Corpuscular Volume 91.3 fL (80-100) Mean Corpuscular Hemoglobin 31.4 pg (25-34) Mean Corpuscular Hemoglobin Concent 34.4 g/dl (32-36) Platelet Count 314 K/uL (130-400) Mean Platelet Volume 8.6 fL (7.4-10.4) Neutrophils (%) (Auto) 65.1 % Lymphocytes (%) (Auto) 25.7 % Monocytes (%) (Auto) 7.3 % Eosinophils (%) (Auto) 1.3 % Basophils (%) (Auto) 0.2 % Neutrophils # (Auto) 2.94 K/uL (1.4-6.5) Lymphocytes # (Auto) 1.16 K/uL (1.2-3.4) Monocytes # (Auto) 0.33 K/uL (0.11-0.59) Eosinophils # (Auto) 0.06 K/uL (0-0.5) Basophils # (Auto) 0.01 K/uL (0-0.2) RDW Standard Deviation 46.6 fL (36.4-46.3) RDW Coefficient of Variation 14.0 % (11.5-14.5) Immature Granulocyte % (Auto) 0.4 % Immature Granulocyte # (Auto) 0.02 K/uL (0.00-0.02) Anion Gap 9.0 mmol/L (3-11) Est Creatinine Clear Calc Drug Dose 91.9 ml/min Estimated GFR () 107.0 Estimated GFR (Non- 92.3 BUN/Creatinine Ratio 6.9 (10-20) Calcium Level 8.7 mg/dl (8.5-10.1) Total Bilirubin 0.2 mg/dl (0.2-1) Direct Bilirubin 0.1 mg/dl (0-0.2) Aspartate Amino Transf (AST/SGOT) 14 U/L (15-37) Alanine Aminotransferase (ALT/SGPT) 15 U/L (12-78) Alkaline Phosphatase 133 U/L (45-117) Total Creatine Kinase 36 U/L (26-192) Creatine Kinase MB 0.9 ng/ml (0.5-3.6) Creatine Kinase MB Ratio 2.5 (0-3.0) Total Protein 6.1 gm/dl (6.4-8.2) Albumin 3.0 gm/dl (3.4-5.0) Lipase 58 U/L (73-393) Laboratory results as stated above per my review. Medications Administered Medications (Trade) Dose Ordered Sig/Valente Route Start Time Stop Time Status Last Admin Dose Admin Sodium Chloride 1,000 ml @ 999 mls/hr Q1H1M STAT IV 02/07/17 06:57 02/07/17 07:57 DC 02/07/17 07:26 999 MLS/HR Ondansetron HCl (Zofran 8mg Iv) 8 mg NOW STAT IV 02/07/17 06:57 02/07/17 06:58 DC 02/07/17 07:26 8 MG Potassium Chloride (Klor-Con M10) 40 meq NOW STAT PO 02/07/17 08:11 02/07/17 08:12 DC 02/07/17 08:18 40 MEQ Acetaminophen (Tylenol Tab) 500 mg NOW STAT PO 02/07/17 08:11 02/07/17 08:12 DC 02/07/17 08:18 500 MG ED Course 0653: Previous medical records were reviewed. The patient was evaluated in room A3. A complete history and physical examination was performed. 0657: Zofran 8 mg IV, NSS 1000 ml @ 999 mls/hr IV. 0811: Acetaminophen 1000 mg PO, Potassium Chloride 40 meq PO. 0812: I reevaluated the patient. She is resting comfortably and feeling better. I discussed her results and discharge instructions and she verbalized complete understanding and agreement. Medical Decision Differential includes acute coronary syndrome, myocardial infarction, CVA, TIA, anemia, infection, pneumonia, UTI, pyelonephritis, poor nutrition, dehydration, electrolyte disturbance,hypoglycemia. This is a 66-year-old female who presents to the ED with a chief complaint of nausea as well as chills and weakness. The patient states that she finished Keflex on . While she was taking Keflex for her urinary tract infection she had diarrhea. Of note, the patient's last urine culture did not show any sign of infection. The patient has no other complaints. The patient' s exam was unremarkable. Lab work revealed some mild hypokalemia with a potassium of 3.0. Glucose is 145. Today's urine did not show infection. Chest x-ray was negative for acute disease. CBC was unremarkable. The patient was treated with IV fluids as well as IV Zofran, a door by mouth and Tylenol by mouth. She is felt to be stable for discharge and outpatient follow-up. Medication Reconcilliation Current Medication List: was personally reviewed by me Blood Pressure Screening Patient's blood pressure: Normal blood pressure Blood pressure disposition: Did not require urgent referral Impression Primary Impression: Hypokalemia Additional Impression: Weakness Scribe Attestation The scribe's documentation has been prepared under my direction and personally reviewed by me in its entirety. I confirm that the note above accurately reflects all work, treatment, procedures, and medical decision making performed by me. Departure Information Dispostion Home / Self-Care Referrals Conrad Mckeon D.O. (PCP) Patient Instructions My [facility] Additional Instructions Follow-up with your doctor for further care and evaluation in 1-2 days. Return to the emergency department for worsening or new symptoms or any concerns. You have been examined and treated today on an emergency basis only. This is not a substitute for, or an effort to provide, complete comprehensive medical care. It is impossible to recognize and treat all injuries or illnesses in a single emergency department visit. It is therefore important that you follow up closely with your doctor. Call as soon as possible for an appointment. Problem Qualifiers
[2017-02-07 08:49] VITALS: BP 198/102; PULSE 81; O2SAT 95
== END 2017-02-07 08:50 | disposition home or self-care (01) ==
LOC: C.EDB 06:39 → C.EDA 08:50
DX: E87.6 Hypokalemia (principal); R53.1 Weakness; F41.9 Anxiety disorder, unspecified; J45.909 Unspecified asthma, uncomplicated; E11.9 Type 2 diabetes mellitus without complications; K21.9 Gastro-esophageal reflux disease without esophagitis; E78.5 Hyperlipidemia, unspecified; I10 Essential (primary) hypertension; E66.01 Morbid (severe) obesity due to excess calories; Z87.440 Personal history of urinary (tract) infections; Z86.19 Personal history of other infectious and parasitic diseases; Z98.84 Bariatric surgery status; Z96.659 Presence of unspecified artificial knee joint; Z83.3 Family history of diabetes mellitus; Z82.49 Family history of ischemic heart disease and other diseases of the circulatory system

== ENCOUNTER 2017-03-22 15:34 | Emergency (ER) | payer MEDICARE ==
[~2017-03-22] VITALS: Ht 160 cm; Wt 93.0 kg
[~2017-03-22 15:34] MED LIST changes: -KFL250 PO
[2017-03-22 15:37] VITALS: TEMP 37; Ht 160 cm; Wt 93.0 kg
[2017-03-22] MEDS ORDERED: SODIUM CHLORIDE 0.9% 1000ML 1,000 ML IV STA (15:54)
--- NOTE | 2017-03-22 15:56 | EMERGENCY ROOM VISIT NOTE ---
History Report prepared by Tano: Enma Chavez Under the Supervision of: Dr. Maria Fernanda Linares D.O. First contact with patient: 15:41 Chief Complaint: URINARY SYMPTOMS Stated Complaint: WEAKNESS,NEUROPATHY FOOT PAIN,UTI History of Present Illness The patient is a 67 year old female who presents to the Emergency Room with complaints of weakness beginning 3 days ago. The patient reports that she has had diarrhea, a cough, nausea, vomiting, and the chills. Pt is concerned she is dehydrated. She also complains of fatigue, anxiety, and loss of appetite. The patient reports that she has neuropathy in her feet, and that she has felt unsteady recently. She denies having abdominal pain. The patient reports that she got her flu shot a couple weeks ago. Per her , the patient has also been diagnosed with SVT. Pt with multiple complaints all of which are chronic on additional questioning. Pt with multiple comorbidities. Pt continues to request pain meds for her neuropathy but states she has been tried on 4 different meds already and is trying to get in with pain mgmt. Source of History: patient, spouse/significant other () Onset: 3 days ago Position: other (global) Quality: other (weakness) Associated Symptoms: + chills, + cough, + nausea, + vomiting, + diarrhea, No abdominal pain Review of Systems See HPI for pertinent positives & negatives. A total of 10 systems reviewed and were otherwise negative. Past Medical & Surgical Medical Problems: (1) Anxiety (2) Asthma (3) C. difficile diarrhea (4) DM2 (diabetes mellitus, type 2) (5) GERD (gastroesophageal reflux disease) (6) Hyperlipidemia (7) Hypertension (8) Morbid obesity (9) Pseudomonas urinary tract infection (10) Recurrent UTI (urinary tract infection) (11) Sacral back pain (12) Shoulder pain (13) UTI (urinary tract infection) Surgical Problems: (1) H/O gastric bypass (2) H/O hernia repair (3) H/O spinal fusion (4) History of carpal tunnel surgery (5) Previous section (6) S/P appendectomy (7) S/P cholecystectomy (8) S/p left shoulder surgery (9) S/P parathyroidectomy (10) S/P tonsillectomy and adenoidectomy (11) Total knee replacement status Family History Diabetes mellitus Gallbladder disease Heart disease Hypertension Social History Smoking Status: Never Smoker Alcohol Use: none Drug Use: none Marital Status: Housing Status: lives with significant other Occupation Status: retired Current/Historical Medications Scheduled Clopidogrel Bisulfate (Clopidogrel), 75 MG PO QAM Cyclosporine (Ophth) (Restasis), 1 DROP OPB BID Estrogens, Conjugated (Premarin), 1 APPLN PV HS Lorazepam (Ativan), 1 MG PO QAM Losartan Potassium (Cozaar), 100 MG PO DAILY Metoprolol Succinate (Metoprolol Succinate ER), 25 MG PO QAM Multivitamin (Multivitamin), 1 TAB PO DAILY Scheduled PRN Albuterol Sulfate (Proventil Hfa), 1 PUFF INH DAILY PRN for SOB/Wheezing Fluticasone Propionate (Nasal) (Flonase Allergy Relief), 1 SPRAY SALOMÓN DAILY PRN for ALLERGIES Tramadol HCl (Tramadol HCl), 50 MG PO Q6H PRN for Pain Allergies Coded Allergies: Atorvastatin (Verified Allergy, Unknown, myalgias per PCP note , 03/22/17) Rosuvastatin (Unverified Allergy, Unknown, MUSCLE ACHES, 03/22/17) CI Pigment Blue 63 (Verified Adverse Reaction, Mild, PSYCHOSIS, 03/22/17) Duloxetine (Verified Adverse Reaction, Mild, PSYCHOSIS, 03/22/17) Gabapentin (Verified Adverse Reaction, Mild, PSYCHOSIS, 03/22/17) Morphine (Verified Adverse Reaction, Mild, NAUSEA, 03/22/17) NSAIDs (Verified Adverse Reaction, Unknown, s/p bariatric surgery, 03/22/17 ) per gmg Physical Exam Vital Signs Date Time Temp Pulse Resp B/P (MAP) Pulse Ox O2 Delivery O2 Flow Rate FiO2 03/22/17 18:32 65 20 143/85 99 Room Air 03/22/17 17:11 62 20 146/89 Room Air 03/22/17 15:37 37.0 80 20 100/67 95 Room Air Physical Exam GENERAL: alert, well appearing, well nourished, no distress, non-toxic, obese EYE EXAM: normal conjunctiva, PERRL and EOM's grossly intact OROPHARYNX: no exudate, no erythema, lips, buccal mucosa, and tongue normal and mucous membranes are dry NECK: supple, no nuchal rigidity, no adenopathy, non-tender LUNGS: Clear to auscultation. Normal chest wall mechanics, no w/r/r HEART: no murmurs, S1 normal and S2 normal ABDOMEN: abdomen soft, non-tender, normo-active bowel sounds, no masses, no rebound or guarding. BACK: Back is symmetrical on inspection and there is no deformity, no midline tenderness, no CVA tenderness. SKIN: no rashes and no bruising UPPER EXTREMITIES: upper extremities are grossly normal. Nml ROM, nml pulses. LOWER EXTREMITIES: No pitting edema. Nml ROM, nml pulses. NEURO EXAM: Normal sensorium, cranial nerves II-XII grossly intact, normal speech, no gross weakness of arms, no gross weakness of legs. Gross sensation intact in upper extremities, states mild tingling b/l feet. Medical Decision & Procedures ER Provider Diagnostic Interpretation: Radiology results have been interpreted by the radiologist and reviewed by me. ABDOMEN 2VIEW W/PA CHEST RTN HISTORY: 67 years-old Female diarrhea acute diarrhea. COMPARISON: Chest radiograph 02/07/2017 TECHNIQUE: Frontal view of the chest with erect and supine views of the abdomen FINDINGS: Cardiomediastinal and hilar silhouettes are within normal limits. There is atherosclerosis of the aorta. No pneumothorax, pleural effusion or focal airspace consolidation. No overt pulmonary edema. Reverse left shoulder arthroplasty noted. Surgical clips are seen within the right upper abdomen. Fusion hardware of the lumbar spine is noted. There is fusion of the right SI joint. Bowel gas pattern is nonobstructive. Gas filled nondilated loops of bowel are seen within the right mid abdomen. No pneumoperitoneum on the upright projection. Surgical suture material seen within the left upper abdomen. No urolith identified. IMPRESSION: 1. Nonobstructive bowel gas pattern without pneumoperitoneum. 2. No acute cardiopulmonary process. The above report was generated using voice recognition software. It may contain grammatical, syntax or spelling errors. Electronically signed by: Missael Moore M.D. 03/22/2017 5:30 PM Dictated Date/Time: 03/22/2017 5:27 PM Laboratory Results 03/22/17 16:10 Red Blood Count 3.90, Mean Corpuscular Volume 88.7, Mean Corpuscular Hemoglobin 29.7, Mean Corpuscular Hemoglobin Concent 33.5, Mean Platelet Volume 8.6, Neutrophils (%) (Auto) 64.1, Lymphocytes (%) (Auto) 26.0, Monocytes (%) (Auto) 7.7, Eosinophils (%) (Auto) 1.6, Basophils (%) (Auto) 0.3, Neutrophils # (Auto) 2.34, Lymphocytes # (Auto) 0.95, Monocytes # (Auto) 0.28, Eosinophils # (Auto) 0.06, Basophils # (Auto) 0.01 03/22/17 16:10 Test 03/22/17 16:10 03/22/17 16:38 03/22/17 17:48 White Blood Count 3.65 K/uL (4.8-10.8) Red Blood Count 3.90 M/uL (4.2-5.4) Hemoglobin 11.6 g/dL (12.0-16.0) Hematocrit 34.6 % (37-47) Mean Corpuscular Volume 88.7 fL (80-100) Mean Corpuscular Hemoglobin 29.7 pg (25-34) Mean Corpuscular Hemoglobin Concent 33.5 g/dl (32-36) Platelet Count 251 K/uL (130-400) Mean Platelet Volume 8.6 fL (7.4-10.4) Neutrophils (%) (Auto) 64.1 % Lymphocytes (%) (Auto) 26.0 % Monocytes (%) (Auto) 7.7 % Eosinophils (%) (Auto) 1.6 % Basophils (%) (Auto) 0.3 % Neutrophils # (Auto) 2.34 K/uL (1.4-6.5) Lymphocytes # (Auto) 0.95 K/uL (1.2-3.4) Monocytes # (Auto) 0.28 K/uL (0.11-0.59) Eosinophils # (Auto) 0.06 K/uL (0-0.5) Basophils # (Auto) 0.01 K/uL (0-0.2) RDW Standard Deviation 45.8 fL (36.4-46.3) RDW Coefficient of Variation 14.1 % (11.5-14.5) Immature Granulocyte % (Auto) 0.3 % Immature Granulocyte # (Auto) 0.01 K/uL (0.00-0.02) Anion Gap 11.0 mmol/L (3-11) Est Creatinine Clear Calc Drug Dose 67.1 ml/min Estimated GFR () 79.3 Estimated GFR (Non- 68.5 BUN/Creatinine Ratio 8.5 (10-20) Calcium Level 8.6 mg/dl (8.5-10.1) Total Bilirubin 0.3 mg/dl (0.2-1) Aspartate Amino Transf (AST/SGOT) 13 U/L (15-37) Alanine Aminotransferase (ALT/SGPT) 14 U/L (12-78) Alkaline Phosphatase 141 U/L (45-117) Total Protein 5.8 gm/dl (6.4-8.2) Albumin 3.2 gm/dl (3.4-5.0) Globulin 2.6 gm/dl (2.5-4.0) Albumin/Globulin Ratio 1.2 (0.9-2) Lactic Acid Level 1.7 mmol/L (0.4-2.0) Urine Color YELLOW Urine Appearance CLEAR (CLEAR) Urine pH 5.0 (4.5-7.5) Urine Specific [place] 1.016 (1.000-1.030) Urine Protein NEG (NEG) Urine Glucose (UA) NEG (NEG) Urine Ketones NEG (NEG) Urine Occult Blood NEG (NEG) Urine Nitrite NEG (NEG) Urine Bilirubin NEG (NEG) Urine Urobilinogen NEG (NEG) Urine Leukocyte Esterase NEG (NEG) Laboratory results per my review. Medications Administered Medications (Trade) Dose Ordered Sig/Valente Route Start Time Stop Time Status Last Admin Dose Admin Sodium Chloride 1,000 ml @ 999 mls/hr Q1H1M STAT IV 03/22/17 15:54 03/22/17 16:54 DC 03/22/17 15:54 999 MLS/HR Lorazepam (Ativan Inj) 0.5 mg NOW STAT IV 03/22/17 17:09 03/22/17 17:11 DC 03/22/17 17:28 0.5 MG Lorazepam (Ativan Inj) 0.5 mg NOW STAT IV 03/22/17 18:13 03/22/17 18:15 DC 03/22/17 18:25 0.5 MG Fentanyl Citrate (Fentanyl Inj) 75 mcg NOW STAT IV 03/22/17 18:13 03/22/17 18:15 DC 03/22/17 18:25 75 MCG ECG Indication: weakness Rate (beats per minute): 59 Rhythm: sinus bradycardia Findings: T-wave inversion (lead III), no acute ischemic change, other (normal axis, normal intervals) ED Course 1547: The patient was evaluated in room A4B. A complete history and physical exam was performed. 1554: Ordered Sodium Chloride 1,000 ml @ 999 mls/hr IV. 1709: Ordered Ativan Inj 0.5 mg IV. 1807: I checked on the patient and updated her on her results. She states she is feeling better, but is still anxious. 1813: Ordered Fentanyl Inj 75 mcg IV, Ativan Inj 0.5 mg IV. 1815: Upon reevaluation, the patient is feeling better. I discussed the findings and the treatment plan with the patient. She verbalizes agreement and understanding. She was discharged home. Medical Decision Differential diagnosis: Etiologies such as metabolic, infection, hypo/hyperglycemia, electrolyte abnormalities, cardiac sources, intracerebral event, toxicologic, neurologic, as well as others were entertained. Pt likely with anxiety and chronic pain issues, felt improved here with IVF and possible mild dehydration from recent diarrhea. No diarrhea while here. No other risk factors for c.diff, no hx of IBD/IBS. Doubt mesenteric ischemia, colitis, abd soft and NT. VS stable, doubt bacteremia/sepsis. Doubt additional vascular etiology. Pt c/o dysuria, but UA unremarkable. On further discussion possibly related to irritation from dryness. Other labs and imaging reassuring. Did not feel pt condition or exam warranted additional abdominal imaging at this time. Discussed with pt f/u with PCP, continuing her efforts to see pain mgmt as she was referred by her neurologist, bubba to watch/return for , she verbalized understanding and was agreeable with the plan. Medication Reconcilliation Current Medication List: was personally reviewed by me Blood Pressure Screening Patient's blood pressure: Elevated blood pressure Blood pressure disposition: Elevated BP felt to be situational Impression Primary Impression: Generalized weakness Additional Impressions: Neuropathy Obesity Diarrhea Dehydration Scribe Attestation The scribe's documentation has been prepared under my direction and personally reviewed by me in its entirety. I confirm that the note above accurately reflects all work, treatment, procedures, and medical decision making performed by me. Departure Information Dispostion Home / Self-Care Referrals Conrad Mckeon D.O. (PCP) Forms HOME CARE DOCUMENTATION FORM, IMPORTANT VISIT INFORMATION Patient Instructions My [facility] Additional Instructions Please follow up with your family doctor and continue efforts to see a set painter regarding your chronic neuropathy. Please continue your other medications as prescribed. Please continue to monitor your bowel movements. If you have worsening diarrhea, noticed blood with the bowel movement, develop fevers, abdominal pain, or you have any other new concerns, please return the emergency room. Problem Qualifiers Additional Impressions: Obesity Obesity type: unspecified obesity type Obesity classification: unspecified obesity classification Serious obesity comorbidity presence: unspecified whether serious comorbidity present Qualified Codes: E66.9 - Obesity, unspecified Diarrhea Diarrhea type: unspecified type Qualified Codes: R19.7 - Diarrhea, unspecified
[2017-03-22 16:25] LABS: BASO % 0.3 %; BASO ABS # 0.01 K/uL (0-0.2); COMPLETE YES; EOS % 1.6 %; HEMATOCRIT 34.6 % (37-47); IG% 0.3 %; LYMPH ABS # 0.95 K/uL (1.2-3.4); MEAN CELL VOLUME 88.7 fL (80-100); MEAN CORPUSCULAR HEMOGLOBIN 29.7 pg (25-34); MEAN CORPUSCULAR HGB CONC 33.5 g/dl (32-36); MEAN PLATELET VOLUME 8.6 fL (7.4-10.4); MONO % 7.7 %; NEUT % 64.1 %; PLATELET COUNT 251 K/uL (130-400); WHITE BLOOD COUNT 3.65 K/uL (4.8-10.8)
[2017-03-22 16:41] LABS: BUN/CREATININE RATIO 8.5 (10-20); CALCIUM 8.6 mg/dl (8.5-10.1); CREATININE 0.87 mg/dl (0.60-1.20); POTASSIUM 3.7 mmol/L (3.5-5.1)
[2017-03-22 16:44] LABS: ALB/GLOB RATIO 1.2 (0.9-2)
[2017-03-22] MEDS ORDERED: FLUT0.15 NAE (16:55)
[2017-03-22] MEDS ORDERED: MULT-506 PO (16:55)
[2017-03-22] MEDS ORDERED: ALBUAER INH (16:55)
[2017-03-22] MEDS ORDERED: LORAZEPAM 2 MG/ML 1 ML VIAL IV STA ×2 (17:09→18:13)
--- NOTE | 2017-03-22 17:31 | DIAGNOSTIC IMAGING REPORT ---
ABDOMEN 2VIEW W/PA CHEST RTN HISTORY: 67 years-old Female diarrhea acute diarrhea. COMPARISON: Chest radiograph 02/07/2017 TECHNIQUE: Frontal view of the chest with erect and supine views of the abdomen FINDINGS: Cardiomediastinal and hilar silhouettes are within normal limits. There is atherosclerosis of the aorta. No pneumothorax, pleural effusion or focal airspace consolidation. No overt pulmonary edema. Reverse left shoulder arthroplasty noted. Surgical clips are seen within the right upper abdomen. Fusion hardware of the lumbar spine is noted. There is fusion of the right SI joint. Bowel gas pattern is nonobstructive. Gas filled nondilated loops of bowel are seen within the right mid abdomen. No pneumoperitoneum on the upright projection. Surgical suture material seen within the left upper abdomen. No urolith identified. IMPRESSION: 1. Nonobstructive bowel gas pattern without pneumoperitoneum. 2. No acute cardiopulmonary process. The above report was generated using voice recognition software. It may contain grammatical, syntax or spelling errors. Electronically signed by: Missael Moore M.D. 03/22/2017 5:30 PM Dictated Date/Time: 03/22/2017 5:27 PM
[2017-03-22 18:00] LABS: URINE APPEARANCE CLEAR (CLEAR); URINE BILIRUBIN NEG (NEG); URINE COLOR YELLOW; URINE NITRITE NEG (NEG); URINE SPECIFIC GRAVITY 1.016 (1.000-1.030); UROBILINOGEN NEG (NEG)
[2017-03-22 18:03] LABS: MANUAL MICROSCOPIC REQUIRED? NO; REVIEW REQ? NO
[2017-03-22] MEDS ORDERED: FENTANYL CITRATE INJ 50 MCG/1 ML 2 ML VIAL IV STA (18:13)
[2017-03-22 18:32] VITALS: BP 143/85; PULSE 65; O2SAT 99
== END 2017-03-22 18:42 | disposition home or self-care (01) ==
LOC: C.EDB 15:34 → C.EDA 18:42
DX: R53.83 Other fatigue (principal); G62.9 Polyneuropathy, unspecified; R00.1 Bradycardia, unspecified; E66.9 Obesity, unspecified; R19.7 Diarrhea, unspecified; E86.0 Dehydration; I10 Essential (primary) hypertension; E78.5 Hyperlipidemia, unspecified; E11.9 Type 2 diabetes mellitus without complications; J45.909 Unspecified asthma, uncomplicated; F41.9 Anxiety disorder, unspecified; K21.9 Gastro-esophageal reflux disease without esophagitis; Z87.440 Personal history of urinary (tract) infections; Z86.19 Personal history of other infectious and parasitic diseases; Z98.84 Bariatric surgery status; Z98.1 Arthrodesis status; Z90.49 Acquired absence of other specified parts of digestive tract; Z98.890 Other specified postprocedural states; Z79.899 Other long term (current) drug therapy; Z88.5 Allergy status to narcotic agent; Z88.8 Allergy status to other drugs, medicaments and biological substances; Z83.3 Family history of diabetes mellitus; Z83.79 Family history of other diseases of the digestive system; Z82.49 Family history of ischemic heart disease and other diseases of the circulatory system

== ENCOUNTER → 2017-04-06 | Outpatient (CLI) | payer BC ==
[~2017-04-06] MED LIST changes: +ALBUAER INH; -BIOT10CA PO; -CYNI1000 IM; -EFFSR75 PO; -FLUN0.02 NAE; +FLUT0.15 NAE; -LACT1CAP3 PO; +MULT-506 PO; -ONDA-63 PO; -PEDI1CHW95 PO; -PRT/40 PO; -RGL/5 PO; -SNQ/50 PO; -VNTHFA/IN INH
--- NOTE | 2017-04-06 14:42 | DIAGNOSTIC IMAGING REPORT ---
LEFT LOWER EXTREMITY VENOUS DOPPLER CLINICAL HISTORY: PRE-OP, NEUROPATHY COMPARISON STUDY: Left lower extremity venous Doppler June 20, 2010. TECHNIQUE: Sonography of the deep venous system of the left lower extremity was performed. Compression and augmentation were evaluated. Patient deferred imaging of the right lower extremity. FINDINGS: The left common femoral, superficial femoral and popliteal veins were compressible. Augmentation was normal. Flow was shown within the deep calf vessels although visualization of the calf vessels was suboptimal. IMPRESSION: No evidence of deep venous thrombus within the left lower extremity. Electronically signed by: Everardo De La Torre M.D. 04/06/2017 2:41 PM Dictated Date/Time: 04/06/2017 2:39 PM
--- NOTE | 2017-04-06 15:48 | DIAGNOSTIC IMAGING REPORT ---
ULTRASOUND LEFT LOWER EXTREMITY ARTERIAL CLINICAL HISTORY: Preoperative examination. Neuropathy. TECHNIQUE: Real-time, grayscale, and color Doppler sonography of the arteries of the left lower extremities performed from the inguinal crease to the foot. The patient declined ankle-brachial index assessment and also declined assessment of the right lower extremity arteries. FINDINGS: There is no significant atherosclerotic plaque identified throughout the arteries of the right lower extremity. The left common femoral artery is patent and demonstrates normal triphasic arterial waveforms. Velocities within the common femoral artery measure up to 59 cm/s. The profunda femoris artery is patent with velocities measuring up to 51 cm/s. There are triphasic arterial waveforms seen throughout the superficial femoral artery. Velocities within the superficial femoral artery measure up to 90 cm/s. There are biphasic to triphasic waveforms seen in the popliteal artery with velocities measuring up to 43 cm/s. There is three-vessel runoff to the foot, with normal arterial waveforms present in the calf. Velocities in the calf arteries measure up to 60 cm/s. The dorsalis pedis artery is patent with velocities measuring up to 77 cm/s. IMPRESSION: 1. There is no sonographic evidence of hemodynamically significant stenosis or focal vessel cut off in the arteries of the left lower extremity. 2. The patient declined assessment of the right lower extremity arteries and also declined ankle-brachial index assessment. Dictated: 04/06/2017 2:48 PM Transcribed: 04/06/2017 3:47 PM [place] Electronically signed by: Jarod Singleton M.D. 04/06/2017 3:52 PM Dictated Date/Time: 04/06/2017 2:48 PM
== END | disposition home or self-care (01) ==
LOC: C.ULTR 13:11
PROVIDERS: ATTEND Orthopaedic Surgery Sports Medicine
DX: G62.9 Polyneuropathy, unspecified (principal)

== ENCOUNTER 2017-09-01 16:36 | Inpatient (IN) | payer BC, OTHER ==
[~2017-09-01] VITALS: Ht 160 cm; Wt 89.4 kg
[~2017-09-01 16:36] MED LIST changes: -CYCL0.052 OPB; -FLUT0.15 NAE; -MULT-506 PO; -ULT50 PO
[2017-09-01] MEDS ORDERED: FLUT0.15 NAE (16:55)
[2017-09-01] MEDS ORDERED: MULT-506 PO (16:55)
[2017-09-01] MEDS ORDERED: CYCL0.052 OPB (17:48)
[2017-09-01] MEDS ORDERED: ULT50 PO (18:42)
[2017-09-01] MEDS ORDERED: SODIUM CHLORIDE 0.9% 1000ML 1,000 ML IV ONE (19:01)
[2017-09-01 19:41] LABS: BASO % 0.1 %; BASO ABS # 0.01 K/uL (0-0.2); EOS % 1.3 %; EOS ABS # 0.11 K/uL (0-0.5); HEMATOCRIT 35.8 % (37-47); HEMOGLOBIN 12.4 g/dL (12.0-16.0); IG# 0.03 K/uL (0.00-0.02); LYMPH % 25.5 %; LYMPH ABS # 2.13 K/uL (1.2-3.4); MEAN CELL VOLUME 89.1 fL (80-100); MEAN CORPUSCULAR HEMOGLOBIN 30.8 pg (25-34); MEAN CORPUSCULAR HGB CONC 34.6 g/dl (32-36); MEAN PLATELET VOLUME 8.3 fL (7.4-10.4); MONO % 10.4 %; MONO ABS # 0.87 K/uL (0.11-0.59); NEUT % 62.3 %; NEUT ABS # 5.21 K/uL (1.4-6.5); PLATELET COUNT 395 K/uL (130-400); RED CELL DISTRIBUTION WIDTH CV 15.2 % (11.5-14.5); RED CELL DISTRIBUTION WIDTH SD 49.3 fL (36.4-46.3); WHITE BLOOD COUNT 8.36 K/uL (4.8-10.8)
--- NOTE | 2017-09-01 19:41 | DIAGNOSTIC IMAGING REPORT ---
CHEST 2 VIEWS ROUTINE CLINICAL HISTORY: Cough. Evaluate for pneumonia. COMPARISON STUDY: Chest radiograph March 22, 2017. FINDINGS: Cholecystectomy clips, spinal fusion hardware and a left shoulder reverse arthroplasty are noted. There is no pneumothorax or pleural effusion. There is no evidence for pulmonary edema. Cardiomediastinal silhouette is stable. Note is made of a 2.2 cm left mid lung nodular opacity. This was not present on previous exam. IMPRESSION: 2.2 cm nodular left midlung opacity. This may reflect a small focus of pneumonia. Post treatment radiographs to ensure resolution are recommended to exclude the possibility of a pulmonary nodule. Electronically signed by: Everardo De La Torre M.D. 09/01/2017 7:40 PM Dictated Date/Time: 09/01/2017 7:39 PM
[2017-09-01] MEDS ORDERED: NRV/5 PO (19:55)
[2017-09-01] MEDS ORDERED: CYM60 PO (19:55)
[2017-09-01] MEDS ORDERED: ATR25 PO (19:55)
[2017-09-01] MEDS ORDERED: VNTHFA/IN INH (19:55)
[2017-09-01] MEDS ORDERED: ONDA4TAB9 PO (19:55)
[2017-09-01] MEDS ORDERED: MIRT15TA3 PO (19:55)
[2017-09-01] MEDS ORDERED: PROP20TA67 PO (19:55)
[2017-09-01 19:56] LABS: ALBUMIN 3.4 gm/dl (3.4-5.0); CALCIUM 8.8 mg/dl (8.5-10.1); CREATININE 1.55 mg/dl (0.60-1.20); POTASSIUM 2.8 mmol/L (3.5-5.1)
[2017-09-01 19:57] LABS: INR 0.9 (0.9-1.1); PTT PATIENT 22.1 SECONDS (21.0-31.0)
[2017-09-01] MEDS ORDERED: PANT40TA PO (19:57)
[2017-09-01 20:03] LABS: INFLUENZA A PCR Neg for Influ A (NEG); INFLUENZA B PCR Neg for Influ B (NEG)
[2017-09-01] MEDS ORDERED: POTASSIUM CHLORIDE 10 MEQ TABCR PO STA ×2 (20:41→23:00)
--- NOTE | 2017-09-01 22:02 | EMERGENCY ROOM VISIT NOTE ---
History Report prepared by Tano: Cristobal Alvarado Under the Supervision of: Dr. Julian Lehman M.D. First contact with patient: 18:53 Chief Complaint: SHORTNESS OF BREATH Stated Complaint: SOB,WEAKNESS IN ARMS,LEGS Nursing Triage Summary: Patient to ED via triage, reports weakness for two weeks, states "It got worse on thursday, really week, SOB, I went to [facility] and they did a bunch of tests, told me everything was normal, but a lot of my blood values are elevated , my Lactic acid was up which has happened before when I was really sick." Reports SOB on exertion, sinus congestion, urinary frequency History of Present Illness The patient is a 67 year old female who presents to the Emergency Room with complaints of a worsening illness that started 2 days ago. She states that she has been weak all over, especially in her extremities. The patient adds that she has been having shortness of breath on exertion that started 2 days ago as well. She notes that she has been having vertigo, and almost passed out 3 times yesterday. The patient describes one moment when she was walking down her hallway, and was grabbing the door because she couldn't keep her balance. She notes that she felt very lightheaded and the room was spinning a bit. She says that she has a history of positional vertigo. She notes that her blood pressure has been running low the past few days, and when she took it yesterday it was 106/66. The patient adds that she has been having some chills, but did not take her temperature. The patient states that she has a post-nasal drip that gives her a cough with yellow and green phlegm. She notes that she has had a minimal appetite, with some diarrhea. She states that she went to the [facility] yesterday afternoon and had blood work, a CT of her head, and an x-ray of her chest that showed that nothing was wrong, other than an elevated lactic acid of 3.9. She says that she has a history of bariatric surgery in 2009, so she gets dehydrated easily, and has had an elevated lactic acid before. The patient called her primary care physician's office, and was recommended to come here last night, but decided to wait out her symptoms, but her symptoms worsened today. She denies any chest pain, abdominal pain, urinary symptoms, melena, or hematochezia. Source of History: patient Onset: 2 days ago Position: other (global) Quality: other (illness) Timing: worsening Associated Symptoms: + chills, + cough (with green yellow phlegm), + SOB ( on exertion), + diarrhea, + weakness, No chest pain, No abdominal pain, No melena, No hematochezia, No urinary symptoms Note: Associated symptoms: Episodes of vertigo, lightheadedness, room spinning. Hypotensive recently. Review of Systems See HPI for pertinent positives & negatives. A total of 10 systems reviewed and were otherwise negative. Past Medical & Surgical Medical Problems: (1) Anxiety (2) Asthma (3) C. difficile diarrhea (4) DM2 (diabetes mellitus, type 2) (5) GERD (gastroesophageal reflux disease) (6) Hyperlipidemia (7) Hypertension (8) Morbid obesity (9) Pseudomonas urinary tract infection (10) Recurrent UTI (urinary tract infection) (11) Sacral back pain (12) Shoulder pain (13) UTI (urinary tract infection) Surgical Problems: (1) H/O gastric bypass (2) H/O hernia repair (3) H/O spinal fusion (4) History of carpal tunnel surgery (5) Previous section (6) S/P appendectomy (7) S/P cholecystectomy (8) S/p left shoulder surgery (9) S/P parathyroidectomy (10) S/P tonsillectomy and adenoidectomy (11) Total knee replacement status Family History Diabetes mellitus Gallbladder disease Heart disease Hypertension Social History Smoking Status: Never Smoker Alcohol Use: none Drug Use: none Marital Status: Housing Status: lives with significant other Occupation Status: retired Current/Historical Medications Scheduled Amlodipine Besylate (Amlodipine Besylate), 5 MG PO DAILY Clopidogrel Bisulfate (Clopidogrel), 75 MG PO QAM Cyclosporine (Ophth) (Restasis), 1 DROP OPB BID Duloxetine HCl (Duloxetine HCl), 60 MG PO DAILY Losartan Potassium (Cozaar), 50 MG PO DAILY Metoprolol Succinate (Metoprolol Succinate ER), 25 MG PO QAM Mirtazapine (Remeron), 15 MG PO HS Multivitamin (Multivitamin), 1 TAB PO DAILY Pantoprazole (Protonix), 40 MG PO DAILY Propranolol (Inderal), 20 MG PO TID Scheduled PRN Albuterol Hfa (Ventolin Hfa), 2 PUFFS INH Q6H PRN for Wheezing Fluticasone Propionate (Nasal) (Flonase Allergy Relief), 2 SPRAYS SALOMÓN DAILY PRN for Allergy Symptoms Hydroxyzine HCl (Hydroxyzine HCl), 25 MG PO BID PRN for Anxiety Ondansetron (Ondansetron HCl), 4 MG PO Q8 PRN for Nausea Tramadol HCl (Tramadol HCl), 50 MG PO Q6H PRN for Pain Allergies Coded Allergies: Atorvastatin (Verified Allergy, Unknown, myalgias per PCP note , 03/22/17) Rosuvastatin (Unverified Allergy, Unknown, MUSCLE ACHES, 03/22/17) CI Pigment Blue 63 (Verified Adverse Reaction, Mild, PSYCHOSIS, 03/22/17) Duloxetine (Verified Adverse Reaction, Mild, PSYCHOSIS, 03/22/17) Gabapentin (Verified Adverse Reaction, Mild, PSYCHOSIS, 03/22/17) Morphine (Verified Adverse Reaction, Mild, NAUSEA, 03/22/17) NSAIDs (Verified Adverse Reaction, Unknown, s/p bariatric surgery, 03/22/17 ) per gmg Physical Exam Vital Signs Date Time Temp Pulse Resp B/P (MAP) Pulse Ox O2 Delivery O2 Flow Rate FiO2 09/01/17 21:00 79 18 139/86 99 Room Air 09/01/17 19:35 76 09/01/17 19:24 98 Room Air 09/01/17 19:22 76 18 114/79 98 Room Air 09/01/17 17:04 37.1 95 20 103/58 98 Room Air 09/01/17 16:58 97 Room Air Physical Exam Constitutional: Vital signs reviewed. Eyes: Pupils are equal round reactive to light. Conjunctiva are noninjected. ENT: Pharynx is clear without erythema or exudate. Mucous membranes are moist. Neck supple without meningeal signs. Respiratory: Clear to auscultation bilaterally. Breath sounds are equal bilaterally. Cardiovascular: Regular rate and rhythm. No rubs or gallops. GI: Soft, nondistended and nontender. Bowel sounds are present. Musculoskeletal: No peripheral edema. No lower extremity tenderness. Integumentary: No cyanosis. Neurological: The patient is awake and alert. Cranial nerves II-XII are intact. Motor is 5 out of 5 all extremities. Sensation is intact to light touch all extremities. Normal speech. No pronator drift. No limb ataxia. Psychiatric: Normal affect. Medical Decision & Procedures ER Provider Diagnostic Interpretation: X-ray results as stated below per interpretation by me and the radiologist: CHEST 2 VIEWS ROUTINE CLINICAL HISTORY: Cough. Evaluate for pneumonia. COMPARISON STUDY: Chest radiograph March 22, 2017. FINDINGS: Cholecystectomy clips, spinal fusion hardware and a left shoulder reverse arthroplasty are noted. There is no pneumothorax or pleural effusion. There is no evidence for pulmonary edema. Cardiomediastinal silhouette is stable. Note is made of a 2.2 cm left mid lung nodular opacity. This was not present on previous exam. IMPRESSION: 2.2 cm nodular left midlung opacity. This may reflect a small focus of pneumonia. Post treatment radiographs to ensure resolution are recommended to exclude the possibility of a pulmonary nodule. Electronically signed by: Everardo De La Torre M.D. 09/01/2017 7:40 PM Dictated Date/Time: 09/01/2017 7:39 P Laboratory Results 09/01/17 19:20 Red Blood Count 4.02, Mean Corpuscular Volume 89.1, Mean Corpuscular Hemoglobin 30.8, Mean Corpuscular Hemoglobin Concent 34.6, Mean Platelet Volume 8.3, Neutrophils (%) (Auto) 62.3, Lymphocytes (%) (Auto) 25.5, Monocytes (%) (Auto) 10.4, Eosinophils (%) (Auto) 1.3, Basophils (%) (Auto) 0.1, Neutrophils # (Auto ) 5.21, Lymphocytes # (Auto) 2.13, Monocytes # (Auto) 0.87, Eosinophils # (Auto ) 0.11, Basophils # (Auto) 0.01 09/01/17 19:20 Test 09/01/17 19:15 09/01/17 19:20 09/01/17 19:35 Influenza Type A (RT-PCR) Neg for Influ A (NEG) Influenza Type B (RT-PCR) Neg for Influ B (NEG) White Blood Count 8.36 K/uL (4.8-10.8) Red Blood Count 4.02 M/uL (4.2-5.4) Hemoglobin 12.4 g/dL (12.0-16.0) Hematocrit 35.8 % (37-47) Mean Corpuscular Volume 89.1 fL (80-100) Mean Corpuscular Hemoglobin 30.8 pg (25-34) Mean Corpuscular Hemoglobin Concent 34.6 g/dl (32-36) Platelet Count 395 K/uL (130-400) Mean Platelet Volume 8.3 fL (7.4-10.4) Neutrophils (%) (Auto) 62.3 % Lymphocytes (%) (Auto) 25.5 % Monocytes (%) (Auto) 10.4 % Eosinophils (%) (Auto) 1.3 % Basophils (%) (Auto) 0.1 % Neutrophils # (Auto) 5.21 K/uL (1.4-6.5) Lymphocytes # (Auto) 2.13 K/uL (1.2-3.4) Monocytes # (Auto) 0.87 K/uL (0.11-0.59) Eosinophils # (Auto) 0.11 K/uL (0-0.5) Basophils # (Auto) 0.01 K/uL (0-0.2) RDW Standard Deviation 49.3 fL (36.4-46.3) RDW Coefficient of Variation 15.2 % (11.5-14.5) Immature Granulocyte % (Auto) 0.4 % Immature Granulocyte # (Auto) 0.03 K/uL (0.00-0.02) Prothrombin Time 9.4 SECONDS (9.0-12.0) Prothromb Time International Ratio 0.9 (0.9-1.1) Activated Partial Thromboplast Time 22.1 SECONDS (21.0-31.0) Partial Thromboplastin Ratio 0.9 Anion Gap 11.0 mmol/L (3-11) Est Creatinine Clear Calc Drug Dose 35.7 ml/min Estimated GFR () 39.5 Estimated GFR (Non- 34.1 BUN/Creatinine Ratio 16.3 (10-20) Calcium Level 8.8 mg/dl (8.5-10.1) Total Bilirubin 0.4 mg/dl (0.2-1) Aspartate Amino Transf (AST/SGOT) 8 U/L (15-37) Alanine Aminotransferase (ALT/SGPT) 13 U/L (12-78) Alkaline Phosphatase 162 U/L (45-117) Troponin I < 0.015 ng/ml (0-0.045) Total Protein 7.0 gm/dl (6.4-8.2) Albumin 3.4 gm/dl (3.4-5.0) Globulin 3.6 gm/dl (2.5-4.0) Albumin/Globulin Ratio 0.9 (0.9-2) Bedside Lactic Acid Venous 2.55 mmol/L (0.90-1.70) Laboratory results as reviewed by me. Medications Administered Medications (Trade) Dose Ordered Sig/Valente Route Start Time Stop Time Status Last Admin Dose Admin Sodium Chloride 1,000 ml @ 999 mls/hr Q1H1M ONCE IV 09/01/17 19:01 09/01/17 20:01 DC 09/01/17 19:22 999 MLS/HR Potassium Chloride (Klor-Con M10) 40 meq NOW STAT PO 09/01/17 20:41 09/01/17 20:42 DC 09/01/17 21:06 40 MEQ ECG Per My Interpretation Indication: weakness (generalized) Rate (beats per minute): 79 Rhythm: sinus rhythm Findings: PVC, other (no ST elevations) ED Course 1854: The patient was evaluated in room C5. A complete history and physical exam was performed. 1900: NSS 1000 ml @ 999 mls/hr IV. 1919: I reviewed the [facility] results from yesterday - the patient had an elevated lactic acid of 3.9, her BNP was elevated as well, and her troponin was also slightly elevated. 2040: Klor-Con M10 40 meq PO. 2144: I reevaluated the patient and she is resting comfortably. I talked to her about the test results. She expressed understanding and agreement with the treatment plan. She will be evaluated for further treatment. 2147: I spoke with Dr. Mi of [facility] internal medicine. We discussed the patient and her results. The patient will be further evaluated by Dr. Mi. Medical Decision This is a 67-year-old female presents with generalized weakness. Differential diagnosis includes near syncope, dehydration, metabolic derangement, orthostatic hypotension, infection, cardiac. I did perform a limited focused review of portions of the patient's old chart on the electronic medical record. The patient has had no recent pertinent visits to this hospital. I did evaluate the patient as noted above. The patient is presenting with near syncope today and generalized weakness. She has a nonfocal examination. No neurologic deficits are noted. No signs of a stroke. IV access was established. The patient was placed on a continuous monitor and storage bin tender. I did treat her with normal saline IV. I did order and personally review the patient' s 12-lead EKG and chest x-ray as described above. Her chest x-ray demonstrates a questionable left-sided opacity which may be consistent with pneumonia versus nodule. I did order and review the patient's blood work as noted in the electronic medical record. Potassium is 2.8. Troponin is negative. Rapid flu testing is negative. I did treat patient with oral potassium. I did discuss the test results with the patient and her . Her did not feel comfortable with her going home at this time as this is her second visit for the same symptoms. I did discuss the case with the gearcase assembler and the hospitalist. Medication Reconcilliation Current Medication List: was personally reviewed by me Blood Pressure Screening Patient's blood pressure: Normal blood pressure Consults Time Called: 2144 Consulting Physician: Dr. Mi - [facility] supervisor meter shop Returned Call: [address] Mi of [facility] internal medicine. We discussed the patient and her results. The patient will be further evaluated by Dr. Mi. Impression Primary Impression: Near syncope Additional Impressions: Hypokalemia Pneumonia involving left lung Scribe Attestation The scribe's documentation has been prepared under my direct and personally reviewed by me in its entirety. I confirm that the note above accurately reflects all work, treatment, procedures, and medical decision making performed by me. Departure Information Dispostion Being Evaluated By Hospitalist Referrals Conrad Mckeon D.O. (PCP) Patient Instructions My [facility] Problem Qualifiers Additional Impressions: Pneumonia involving left lung Pneumonia type: due to unspecified organism Lung location: unspecified part of lung Qualified Codes: J18.9 - Pneumonia, unspecified organism
[2017-09-01] MEDS ORDERED: NSS + 20MEQ KCL 1000ML 1,000 ML IV SCH (23:00)
[2017-09-01] MEDS ORDERED: TRAMADOL HCL 50 MG TAB PO PRN (23:00)
[2017-09-01] MEDS ORDERED: CEFTRIAXONE SOD INJ 1 GM ADDVIAL IV SCH (23:00)
[2017-09-01] MEDS ORDERED: DEXTROSE 50% 50 ML SYR IV PRN (23:15)
[2017-09-01] MEDS ORDERED: GLUCOSE 40% GEL 15 GM TUBE PO PRN (23:15)
[2017-09-01] MEDS ORDERED: ACETAMINOPHEN 325 MG TAB PO PRN (23:15)
[2017-09-01] MEDS ORDERED: GLUCAGON FOR INJ 1 MG VIAL SQ PRN (23:15)
[2017-09-01] MEDS ORDERED: ALBUT/IPRATROP 3MG/0.5MG NEB 3 ML VIAL INH PRN (23:15)
[2017-09-01] MEDS ORDERED: GLUCOSE 10 TABS/TUBE PO PRN (23:15)
[2017-09-01 23:45] VITALS: BP 148/86; PULSE 76; TEMP 36.8; O2SAT 99; Ht 160 cm; Wt 89.4 kg
[2017-09-02] VITALS (7 sets, daily range): BP systolic 104–162; BP diastolic 66–92; PULSE 71–114; TEMP 36.6–37.1; O2SAT 95–98
[2017-09-02] MEDS ORDERED: MIRTAZAPINE TAB 15 MG TAB PO ONE (01:00)
[2017-09-02] MEDS ORDERED: INSULIN ASPART 100 UNITS/ML 3 ML PEN SC ONE (01:00)
[2017-09-02] MEDS ORDERED: NSS + 20MEQ KCL 1000ML 1,000 ML IV ONE (01:00)
[2017-09-02] MEDS ORDERED: DOXYCYCLINE IV 100 MG in DEXTROSE 5% 100ML 100 ML IV ONE (01:00)
[2017-09-02] MEDS ORDERED: LACTOBACILLUS ACIDOPHILUS (FLORANEX) TAB PO ONE (01:00)
[2017-09-02] MEDS: CEFTRIAXONE SOD INJ 1000 MG in DEXTROSE 5% 50ML IV SCH (01:24)
[2017-09-02] MEDS: hydrOXYzine HCL 25 MG TAB PO PRN ×2 (01:27→19:56)
[2017-09-02] MEDS: TRAMADOL HCL 50 MG TAB PO PRN ×4 (01:35→21:05)
--- NOTE | 2017-09-02 02:01 | HISTORY & PHYSICAL EXAMINATION ---
DATE OF ADMISSION: 09/01/2017 PRIMARY CARE DOCTOR: Dr. Mckeon. CHIEF COMPLAINT: Dizziness, shortness of breath, weakness. HISTORY OF PRESENT ILLNESS: History obtained from patient and records. Medical history significant for hypertension, fibromyalgia, history of recurrent C. difficile, hx of mini stroke, history of traumatic subdural hematoma, history of bariatric surgery, PSVT as per records, history of chronic pulmonary nodules as per records, asthma as per records, diet controlled DM2. Recent confinement last January 2017 for dysuria symptoms, UTI. Few days history of cough symptoms started with nasal congestion later productive of yellow-green sputum, increasing shortness of breath on exertion. No chest pain, dizziness described as lightheadedness. Patient seen at [place] [facility] yesterday. Lactic acid was noted to be 3.9. Diagnosis was dehydration. Discharged home after IV fluids. Patient directed by PCP to Emergency Room for worsening symptoms. MEDICAL HISTORY: As above. Recent antibiotic possible UTI a few months ago. SURGERIES: Appendectomy, knee surgery, hip surgery, knee replacement, carpal tunnel, gastric bypass, cholecystectomy, shoulder surgery. HOME MEDICATIONS: Hydroxyzine, Cozaar, Remeron, metoprolol, propranolol, Zofran, Inderal, Protonix, amlodipine, Ventolin, Restasis, clopidogrel, duloxetine, Flonase. ALLERGIES: MORPHINE, GABAPENTIN, ATORVASTATIN, CI PIGMENT BLUE, STATIN, DULOXETINE, NSAIDS. FAMILY HISTORY: IBD, stroke, diabetes. PERSONAL AND SOCIAL HISTORY: Nonsmoker, no chronic intake of alcoholic beverages. 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 REVIEW OF SYSTEMS: As per HPI, all 10 systems reviewed. All other ROS negative. PHYSICAL EXAMINATION: VITAL SIGNS: Blood pressure was noted to be 103/58, pulse rate 95, RR 20, temperature 37, sats 98 on room air. Orthostatic vitals were abnormal GENERAL: Anxious, no respiratory distress. Obese. SKIN: Normal color, warm. HEENT: Pale palpebral conjunctiva. No ptosis. Dry mucosa. NECK: Supple, short, nontender. LUNGS: Decreased breath sounds. No wheeze. ABDOMEN: Some distention, nontender. Healed scars. EXTREMITIES: No edema. No gross deformities . No tenderness. NEUROLOGIC: Coherent. No gross focality. LABORATORY DATA: Hemoglobin was noted to be 12.94, hematocrit 35.8, white cell count 8.06, platelets 395. Sodium noted to be 137, potassium 3.8, chloride 104, CO2 22, BUN 28, creatinine 1.55, glucose noted to be 155. Chest x-ray, 2.2 cm nodule, left mid lung opacity, possible pneumonia post-treatment radiographs to ensure resolution recommended for possible pulmonary nodule. EKG as per my interpretation rate 80, NSR, LVH, Q-wave flattening in the inferior leads, PVCs, diffuse T-wave flattening. ASSESSMENT: 1. Acute renal failure, hypokalemia, clinical dehydration secondary to community-acquired pneumonia no sepsis. 2. Recurrent diarrhea, rule out Clostridium difficile. 3. Hypertension, patient orthostatic. 4. Diet controlled DM2, patient off meds since gastric bypass. 5. History of traumatic subdural hematoma. 6. History of fibromyalgia as per records PLAN: GMF monitor creatinine response to IV fluids Hold ARB until creatinine at baseline. Ceftriaxone, Doxycycline. ISS BG goal 140-180. Patient due for hemoglobin A1c check. DVT prophylaxis, SCDs RE recent history of traumatic subdural hematoma. Full code. MTDD
[2017-09-02] MEDS: NSS + 20MEQ KCL 1000ML 1,000 ML IV SCH ×2 (03:00→06:21)
[2017-09-02 05:52] LABS: ALBUMIN 2.7 gm/dl (3.4-5.0); CREATININE 1.11 mg/dl (0.60-1.20); POTASSIUM 3.6 mmol/L (3.5-5.1); TOTAL PROTEIN 5.7 gm/dl (6.4-8.2)
[2017-09-02] MEDS ORDERED: INSULIN GLARGINE SOLOSTAR 100 UNITS/ML 3 ML PEN SC ONE (06:21)
[2017-09-02] MEDS ORDERED: LACTATED RINGER'S 1000ML 1,000 ML IV STA (06:27)
[2017-09-02 06:53] LABS: HEMOGLOBIN A1C 6.1 % (4.5-5.6)
[2017-09-02] MEDS ORDERED: VANCOMYCIN HCL 125 MG/2.5ML SOLN PO ONE (07:00)
[2017-09-02] MEDS ORDERED: RASPBERRY SYRUP 5 ML UDP PO ONE (07:00)
[2017-09-02] MEDS: INSULIN ASPART 100 UNITS/ML 3 ML PEN SC SCH ×4 (07:38→20:59)
[2017-09-02] MEDS: MULTIVITAMIN TAB PO SCH (07:43)
[2017-09-02] MEDS: PROPRANOLOL HCL 20 MG TAB PO SCH ×3 (07:43→19:53)
[2017-09-02] MEDS: LACTOBACILLUS ACIDOPHILUS (FLORANEX) TAB PO SCH ×4 (07:44→19:53)
[2017-09-02] MEDS: DULOXETINE HCL 60 MG CAP PO SCH (07:44)
[2017-09-02] MEDS: AMLODIPINE BESYLATE 5 MG TAB PO SCH (07:45)
[2017-09-02] MEDS: CLOPIDOGREL BISULFATE 75 MG TAB PO SCH (07:45)
[2017-09-02] MEDS ORDERED: LACTATED RINGER'S 1000ML 1,000 ML IV SCH (08:30)
[2017-09-02] MEDS: DOXYCYCLINE HYCLATE 100 MG CAP PO SCH ×2 (10:40→19:54)
[2017-09-02] MEDS ORDERED: LORAZEPAM 0.5 MG TAB PO STA (10:45)
[2017-09-02] MEDS ORDERED: LORAZEPAM 0.5 MG TAB ONE (10:53)
[2017-09-02 11:06] LABS: ALBUMIN 2.6 gm/dl (3.4-5.0); ALT/SGPT 12 U/L (12-78); AST/SGOT 11 U/L (15-37); BLOOD UREA NITROGEN 14 mg/dl (7-18); CARBON DIOXIDE 20 mmol/L (21-32); CREATININE 0.79 mg/dl (0.60-1.20); GLUCOSE 148 mg/dl (70-99); POTASSIUM 4.1 mmol/L (3.5-5.1); SODIUM 140 mmol/L (136-145)
[2017-09-02 11:09] LABS: ALKALINE PHOSPHATASE 131 U/L (45-117); TOTAL PROTEIN 5.5 gm/dl (6.4-8.2)
--- NOTE | 2017-09-02 14:10 | Progress Note ---
Subjective Date of Service: Sep 02, 2017. Subjective Pt evaluation today including: conversation w/ patient, physical exam, lab review, review of studies, review of inpatient medication list Saw/examined the patient in room 405 She had been c/o chest pain earlier today states there was some chest pressure with jaw pressure EKG was repeated and blood work drawn patient states maybe she felt some anxiety - was given Ativan and felt better No cough Has some weakness and overall fatigue Problem List Medical Problems: (1) Ambulatory dysfunction Status: Acute (2) Anemia Status: Acute (3) Chronic left shoulder pain Status: Acute (4) Chronic low back pain Status: Acute (5) Confusion Status: Acute (6) Dehydration Status: Acute (7) Dehydration Status: Acute (8) Diarrhea Status: Acute (9) Dizziness Status: Acute (10) Dizziness Status: Acute (11) Dizziness, nonspecific Status: Acute (12) Epigastric abdominal pain Status: Acute (13) Headache Status: Acute (14) Hypertensive urgency Status: Acute (15) Hypokalemia Status: Acute (16) Hypokalemia Status: Acute (17) Nausea Status: Acute (18) Nausea & vomiting Status: Acute (19) Near syncope Status: Acute (20) Neck mass Status: Acute (21) Neuropathy Status: Acute (22) Obesity Status: Acute (23) Pneumonia involving left lung Status: Acute (24) Polypharmacy Status: Acute (25) Radiating chest pain Status: Acute (26) SIRS (systemic inflammatory response syndrome) Status: Acute (27) Slurred speech Status: Acute (28) Tachycardia Status: Acute (29) TIA (transient ischemic attack) Status: Acute (30) Viral syndrome Status: Acute Review of Systems Constitutional: + weakness, + fatigue, No fever, No chills Respiratory: No cough, No sputum, No wheezing, No shortness of breath, No dyspnea on exertion, No dyspnea at rest, No hemoptysis Heme: No abnormal bleeding/bruising Medications Current Inpatient Medications Medications (Trade) Dose Ordered Sig/Valente Route Start Time Stop Time Status Last Admin Dose Admin Amlodipine Besylate (Norvasc Tab) 5 mg DAILY PO 09/02/17 08:00 10/02/17 08:59 09/02/17 07:45 5 MG Clopidogrel Bisulfate (plAVix TAB) 75 mg QAM PO 09/02/17 08:00 4/13/18 08:59 09/02/17 07:45 75 MG Duloxetine HCl (Cymbalta Cap) 60 mg DAILY PO 09/02/17 08:00 10/02/17 08:59 09/02/17 07:44 60 MG Hydroxyzine HCl (Vistaril Tab) 25 mg BID PRN PO 09/01/17 23:00 10/01/17 22:59 09/02/17 01:27 25 MG Mirtazapine (Remeron Tab) 15 mg HS PO 09/02/17 21:00 10/02/17 20:59 Multivitamins (Multivitamin Tab) 1 tab DAILY PO 09/02/17 08:00 10/02/17 08:59 09/02/17 07:43 1 TAB Propranolol HCl (Inderal Tab) 20 mg TID PO 09/02/17 08:00 10/02/17 08:59 09/02/17 07:43 20 MG Tramadol HCl (Ultram Tab) not relieved by tylenol @ Q6H PRN PO 09/01/17 23:00 10/01/17 22:59 09/02/17 07:42 50 MG Prochlorperazine Edisylate 5 mg/ Syringe 5 ml @ 5 mls/min Q6H PRN IV 09/01/17 23:00 10/01/17 22:59 Doxycycline Hyclate (Vibramycin Cap) 100 mg BID PO 09/02/17 11:00 09/09/17 10:59 09/02/17 10:40 100 MG Lactobacillus Acidophilus (Floranex Tab) 4 tab QIDM PO 09/02/17 08:00 10/02/17 07:59 09/02/17 07:44 4 TAB Acetaminophen (Tylenol Tab) 650 mg Q4H PRN PO 09/01/17 23:15 10/01/17 23:14 Insulin Aspart (novoLOG ASPART) SLIDING SCALE If C... ACHS SC 09/02/17 06:30 10/02/17 06:59 Glucose (Glucose 40% Gel) 15-30 GRAMS 15 GRAMS... UD PRN PO 09/01/17 23:15 10/01/17 23:14 Glucose (Glucose Chew Tab) 4-8 Tablets 4 Tabl... UD PRN PO 3/13/18 23:15 10/01/17 23:14 Dextrose (Dextrose 50% 50ML Syringe) 25-50ML OF 50% DW IV FOR... UD PRN IV 09/01/17 23:15 10/01/17 23:14 Glucagon (Glucagon Inj) 1 mg UD PRN SQ 09/01/17 23:15 10/01/17 23:14 Miscellaneous Information (Order Awaiting Action) 1 ea QS N/A 09/02/17 08:00 10/02/17 07:59 Albuterol/ Ipratropium (Duoneb) 3 ml Q2H PRN INH 09/01/17 23:15 10/01/17 23:14 Ceftriaxone Sodium 1 gm/ Dextrose 50 ml @ 100 mls/hr Q24H IV 09/02/17 01:00 09/09/17 00:59 09/02/17 01:24 100 MLS/HR Lactated Ringer's 1,000 ml @ 150 mls/hr Q6H40M IV 09/02/17 08:30 09/02/17 14:29 09/02/17 07:48 200 MLS/HR Insulin Glargine (Lantus Solostar Pen) 5 units DAILY SC 09/03/17 08:00 10/03/17 07:59 Pantoprazole Sodium (Protonix Tab) 40 mg DAILY PO 09/03/17 08:00 10/03/17 07:59 Trazodone HCl (Desyrel Tab) 50 mg HSZ PO 09/02/17 22:00 10/02/17 21:59 Objective Vital Signs Date Time Temp Pulse Resp B/P (MAP) Pulse Ox O2 Delivery O2 Flow Rate FiO2 09/02/17 11:00 Room Air 09/02/17 10:40 37.1 75 17 145/91 (109) 95 Room Air 09/02/17 10:10 71 162/92 (115) 96 09/02/17 07:20 36.6 75 18 138/82 (100) 97 Room Air 09/02/17 00:35 82 18 117/77 (90) 98 Room Air 104 104/70 (81) 114 109/73 (85) 09/01/17 23:45 36.8 76 16 148/86 99 Room Air 09/01/17 23:23 78 09/01/17 23:21 74 18 138/76 99 Room Air 09/01/17 22:11 75 18 142/93 99 Room Air 09/01/17 21:00 79 18 139/86 99 Room Air 09/01/17 19:35 76 09/01/17 19:24 98 Room Air 09/01/17 19:22 76 18 114/79 98 Room Air 09/01/17 17:04 37.1 95 20 103/58 98 Room Air 09/01/17 16:58 97 Room Air Physical Exam General Appearance: no apparent distress Respiratory/Chest: chest non-tender, lungs clear, normal breath sounds, no respiratory distress, no accessory muscle use Cardiovascular: regular rate, rhythm, no edema, no gallop, no JVD, no murmur Extremities: normal inspection, no pedal edema Neurologic/Psychiatric: no motor/sensory deficits, alert, normal mood/affect Laboratory Results Last 24 Hours Test 09/01/17 19:15 09/01/17 19:20 09/01/17 19:35 09/01/17 22:00 Influenza Type A (RT-PCR) Neg for Influ A Influenza Type B (RT-PCR) Neg for Influ B White Blood Count 8.36 K/uL Red Blood Count 4.02 M/uL Hemoglobin 12.4 g/dL Hematocrit 35.8 % Mean Corpuscular Volume 89.1 fL Mean Corpuscular Hemoglobin 30.8 pg Mean Corpuscular Hemoglobin Concent 34.6 g/dl Platelet Count 395 K/uL Mean Platelet Volume 8.3 fL Neutrophils (%) (Auto) 62.3 % Lymphocytes (%) (Auto) 25.5 % Monocytes (%) (Auto) 10.4 % Eosinophils (%) (Auto) 1.3 % Basophils (%) (Auto) 0.1 % Neutrophils # (Auto) 5.21 K/uL Lymphocytes # (Auto) 2.13 K/uL Monocytes # (Auto) 0.87 K/uL Eosinophils # (Auto) 0.11 K/uL Basophils # (Auto) 0.01 K/uL RDW Standard Deviation 49.3 fL RDW Coefficient of Variation 15.2 % Immature Granulocyte % (Auto) 0.4 % Immature Granulocyte # (Auto) 0.03 K/uL Prothrombin Time 9.4 SECONDS Prothromb Time International Ratio 0.9 Activated Partial Thromboplast Time 22.1 SECONDS Partial Thromboplastin Ratio 0.9 D-Dimer 320 ug/L FEU Sodium Level 137 mmol/L Potassium Level 2.8 mmol/L Chloride Level 104 mmol/L Carbon Dioxide Level 22 mmol/L Anion Gap 11.0 mmol/L Blood Urea Nitrogen 25 mg/dl Creatinine 1.55 mg/dl Est Creatinine Clear Calc Drug Dose 35.7 ml/min Estimated GFR () 39.5 Estimated GFR (Non- 34.1 BUN/Creatinine Ratio 16.3 Random Glucose 155 mg/dl Estimated Average Glucose 128 mg/dl Hemoglobin A1c 6.1 % Calcium Level 8.8 mg/dl Magnesium Level 2.3 mg/dl Total Bilirubin 0.4 mg/dl Aspartate Amino Transf (AST/SGOT) 8 U/L Alanine Aminotransferase (ALT/SGPT) 13 U/L Alkaline Phosphatase 162 U/L Troponin I < 0.015 ng/ml Total Protein 7.0 gm/dl Albumin 3.4 gm/dl Globulin 3.6 gm/dl Albumin/Globulin Ratio 0.9 Bedside Lactic Acid Venous 2.55 mmol/L Urine Color YELLOW Urine Appearance CLEAR Urine pH 5.5 Urine Specific [place] 1.011 Urine Protein NEG Urine Glucose (UA) NEG Urine Ketones NEG Urine Occult Blood NEG Urine Nitrite NEG Urine Bilirubin NEG Urine Urobilinogen NEG Urine Leukocyte Esterase NEG Urine WBC (Auto) /hpf Urine RBC (Auto) /hpf Urine Hyaline Casts (Auto) /lpf Urine Epithelial Cells (Auto) /lpf Urine Bacteria (Auto) Urine RBC 5-10 /hpf Urine WBC >30 /hpf Urine Epithelial Cells >30 /lpf Urine Bacteria 2+ Test 09/01/17 22:56 09/02/17 01:56 09/02/17 05:02 09/02/17 07:27 Lactic Acid Level 3.3 mmol/L 3.5 mmol/L Bedside Glucose 162 mg/dl 135 mg/dl Sodium Level 141 mmol/L Potassium Level 3.6 mmol/L Chloride Level 110 mmol/L Carbon Dioxide Level 19 mmol/L Anion Gap 12.0 mmol/L Blood Urea Nitrogen 19 mg/dl Creatinine 1.11 mg/dl Est Creatinine Clear Calc Drug Dose 51.5 ml/min Estimated GFR () 59.1 Estimated GFR (Non- 51.0 BUN/Creatinine Ratio 17.1 Random Glucose 198 mg/dl Calcium Level 8.0 mg/dl Total Bilirubin 0.2 mg/dl Aspartate Amino Transf (AST/SGOT) 7 U/L Alanine Aminotransferase (ALT/SGPT) 10 U/L Alkaline Phosphatase 132 U/L Total Protein 5.7 gm/dl Albumin 2.7 gm/dl Globulin 3.0 gm/dl Albumin/Globulin Ratio 0.9 Test 09/02/17 09:59 09/02/17 10:31 09/02/17 10:38 09/02/17 11:14 Lactic Acid Level 2.2 mmol/L Sodium Level 140 mmol/L Potassium Level 4.1 mmol/L Chloride Level 111 mmol/L Carbon Dioxide Level 20 mmol/L Anion Gap 9.0 mmol/L Blood Urea Nitrogen 14 mg/dl Creatinine 0.79 mg/dl Est Creatinine Clear Calc Drug Dose 72.3 ml/min Estimated GFR () 89.1 Estimated GFR (Non- 76.9 BUN/Creatinine Ratio 17.8 Random Glucose 148 mg/dl Calcium Level 8.0 mg/dl Total Bilirubin 0.3 mg/dl Aspartate Amino Transf (AST/SGOT) 11 U/L Alanine Aminotransferase (ALT/SGPT) 12 U/L Alkaline Phosphatase 131 U/L Troponin I < 0.015 ng/ml Total Protein 5.5 gm/dl Albumin 2.6 gm/dl Globulin 2.9 gm/dl Albumin/Globulin Ratio 0.9 Bedside Glucose 154 mg/dl 193 mg/dl Test 09/02/17 11:54 Lactic Acid Level 1.9 mmol/L Assessment and Plan This is a 67 year old female with a PMH of HTN, hx. of subdural hematoma, hx. of TIA, hx. of PSVT, depression/anxiety, s/p bariatric surgery - presents with weakness, lightheadedness, cough/congestion Community Acquired Pneumonia * unsure if this is actually pneumonia due to CXR showing nodular opacities, which could likely represent previous known pulmonary nodules * either way, patient does have some symptoms, including lightheadedness, cough/ congestion * will do 3-5 days of abx. - currently on Rocephin + Doxy * lactic acid was elevated - though patient telling me that she has had trouble with this since her gastric bypass surgery Acute Kidney Injury Dehydration Hypokalemia * question of diarrhea, which patient is now denying * potassium initially low, now repleted * creatinine initially elevated but no back to baseline * will decrease fluid rate and will d/c fluids later today (09/02) Chest Pain * this does not seem like ACS, and more likely related to anxiety * cardiac enzymes negative x2, EKG with no ST/T wave changes * stress test about one year prior in 2017 - negative Depression/Anxiety * continue current medications * can use Ativan PRN, which has helped with her chest pain DVT ppx * SCDs FULL CODE
[2017-09-02] MEDS: MIRTAZAPINE TAB 15 MG TAB PO SCH (19:55)
[2017-09-02] MEDS: TRAZODONE HCL 50 MG TAB PO SCH (21:06)
[2017-09-03] MEDS: CEFTRIAXONE SOD INJ 1000 MG in DEXTROSE 5% 50ML IV SCH (01:19)
[2017-09-03 06:12] LABS: HEMATOCRIT 30.2 % (37-47); HEMOGLOBIN 10.2 g/dL (12.0-16.0); MEAN CELL VOLUME 92.1 fL (80-100); MEAN CORPUSCULAR HEMOGLOBIN 31.1 pg (25-34); MEAN CORPUSCULAR HGB CONC 33.8 g/dl (32-36); MEAN PLATELET VOLUME 8.1 fL (7.4-10.4); PLATELET COUNT 308 K/uL (130-400); RED CELL DISTRIBUTION WIDTH CV 15.7 % (11.5-14.5); RED CELL DISTRIBUTION WIDTH SD 51.7 fL (36.4-46.3); WHITE BLOOD COUNT 4.64 K/uL (4.8-10.8)
[2017-09-03 06:41] LABS: CALCIUM 8.3 mg/dl (8.5-10.1); CREATININE 0.7 mg/dl (0.60-1.20); POTASSIUM 3.7 mmol/L (3.5-5.1)
[2017-09-03 07:55] VITALS: BP 158/90; PULSE 85; TEMP 36.2; O2SAT 97
[2017-09-03] MEDS: INSULIN GLARGINE SOLOSTAR 100 UNITS/ML 3 ML PEN SC SCH (08:00)
[2017-09-03] MEDS: TRAMADOL HCL 50 MG TAB PO PRN ×3 (08:01→21:01)
[2017-09-03] MEDS: DULOXETINE HCL 60 MG CAP PO SCH (08:01)
[2017-09-03] MEDS: MULTIVITAMIN TAB PO SCH (08:01)
[2017-09-03] MEDS: PROPRANOLOL HCL 20 MG TAB PO SCH ×3 (08:01→20:03)
[2017-09-03] MEDS: LACTOBACILLUS ACIDOPHILUS (FLORANEX) TAB PO SCH ×4 (08:01→20:02)
[2017-09-03] MEDS: PANTOprazole SOD 40 MG TAB PO SCH (08:01)
[2017-09-03] MEDS: AMLODIPINE BESYLATE 5 MG TAB PO SCH (08:02)
[2017-09-03] MEDS: CLOPIDOGREL BISULFATE 75 MG TAB PO SCH (08:02)
[2017-09-03] MEDS: DOXYCYCLINE HYCLATE 100 MG CAP PO SCH ×2 (08:02→20:03)
[2017-09-03] MEDS: INSULIN ASPART 100 UNITS/ML 3 ML PEN SC SCH ×4 (08:02→20:55)
--- NOTE | 2017-09-03 11:13 | Progress Note ---
Subjective Date of Service: Sep 03, 2017. Subjective Pt evaluation today including: conversation w/ patient, physical exam, lab review, review of studies, review of inpatient medication list Saw/examined the patient in room 405 she's doing better today good night's sleep last evening good PO intake there is some cough/congestion persistent Problem List Medical Problems: (1) Ambulatory dysfunction Status: Acute (2) Anemia Status: Acute (3) Chronic left shoulder pain Status: Acute (4) Chronic low back pain Status: Acute (5) Confusion Status: Acute (6) Dehydration Status: Acute (7) Dehydration Status: Acute (8) Diarrhea Status: Acute (9) Dizziness Status: Acute (10) Dizziness Status: Acute (11) Dizziness, nonspecific Status: Acute (12) Epigastric abdominal pain Status: Acute (13) Headache Status: Acute (14) Hypertensive urgency Status: Acute (15) Hypokalemia Status: Acute (16) Hypokalemia Status: Acute (17) Nausea Status: Acute (18) Nausea & vomiting Status: Acute (19) Near syncope Status: Acute (20) Neck mass Status: Acute (21) Neuropathy Status: Acute (22) Obesity Status: Acute (23) Pneumonia involving left lung Status: Acute (24) Polypharmacy Status: Acute (25) Radiating chest pain Status: Acute (26) SIRS (systemic inflammatory response syndrome) Status: Acute (27) Slurred speech Status: Acute (28) Tachycardia Status: Acute (29) TIA (transient ischemic attack) Status: Acute (30) Viral syndrome Status: Acute Review of Systems Respiratory: + cough, + sputum, No wheezing, No shortness of breath, No dyspnea on exertion, No dyspnea at rest, No hemoptysis Abdomen: No pain, No nausea, No vomiting, No diarrhea, No constipation, No GI bleeding Female : No dysuria, No urinary frequency Psychiatric: + insomnia (improved with meds) Medications Current Inpatient Medications Medications (Trade) Dose Ordered Sig/Valente Route Start Time Stop Time Status Last Admin Dose Admin Amlodipine Besylate (Norvasc Tab) 5 mg DAILY PO 09/02/17 08:00 10/02/17 08:59 09/03/17 08:02 5 MG Clopidogrel Bisulfate (plAVix TAB) 75 mg QAM PO 09/02/17 08:00 10/02/17 08:59 09/03/17 08:02 75 MG Duloxetine HCl (Cymbalta Cap) 60 mg DAILY PO 09/02/17 08:00 10/02/17 08:59 09/03/17 08:01 60 MG Hydroxyzine HCl (Vistaril Tab) 25 mg BID PRN PO 09/01/17 23:00 10/01/17 22:59 09/02/17 19:56 25 MG Mirtazapine (Remeron Tab) 15 mg HS PO 09/02/17 21:00 10/02/17 20:59 09/02/17 19:55 15 MG Multivitamins (Multivitamin Tab) 1 tab DAILY PO 09/02/17 08:00 10/02/17 08:59 09/03/17 08:01 1 TAB Propranolol HCl (Inderal Tab) 20 mg TID PO 09/02/17 08:00 10/02/17 08:59 09/03/17 08:01 20 MG Tramadol HCl (Ultram Tab) not relieved by tylenol @ Q6H PRN PO 09/01/17 23:00 10/01/17 22:59 09/03/17 08:01 50 MG Prochlorperazine Edisylate 5 mg/ Syringe 5 ml @ 5 mls/min Q6H PRN IV 09/01/17 23:00 10/01/17 22:59 Doxycycline Hyclate (Vibramycin Cap) 100 mg BID PO 09/02/17 11:00 09/09/17 10:59 09/03/17 08:02 100 MG Lactobacillus Acidophilus (Floranex Tab) 4 tab QIDM PO 09/02/17 08:00 10/02/17 07:59 09/03/17 08:01 4 TAB Acetaminophen (Tylenol Tab) 650 mg Q4H PRN PO 09/01/17 23:15 10/01/17 23:14 Insulin Aspart (novoLOG ASPART) SLIDING SCALE If C... ACHS SC 09/02/17 06:30 10/02/17 06:59 Glucose (Glucose 40% Gel) 15-30 GRAMS 15 GRAMS... UD PRN PO 09/01/17 23:15 10/01/17 23:14 Glucose (Glucose Chew Tab) 4-8 Tablets 4 Tabl... UD PRN PO 09/01/17 23:15 10/01/17 23:14 Dextrose (Dextrose 50% 50ML Syringe) 25-50ML OF 50% DW IV FOR... UD PRN IV 09/01/17 23:15 10/01/17 23:14 Glucagon (Glucagon Inj) 1 mg UD PRN SQ 09/01/17 23:15 10/01/17 23:14 Miscellaneous Information (Order Awaiting Action) 1 ea QS N/A 09/02/17 08:00 10/02/17 07:59 Albuterol/ Ipratropium (Duoneb) 3 ml Q2H PRN INH 09/01/17 23:15 10/01/17 23:14 Ceftriaxone Sodium 1 gm/ Dextrose 50 ml @ 100 mls/hr Q24H IV 09/02/17 01:00 09/09/17 00:59 09/03/17 01:19 100 MLS/HR Insulin Glargine (Lantus Solostar Pen) 5 units DAILY SC 09/03/17 08:00 10/03/17 07:59 Pantoprazole Sodium (Protonix Tab) 40 mg DAILY PO 09/03/17 08:00 10/03/17 07:59 09/03/17 08:01 40 MG Trazodone HCl (Desyrel Tab) 50 mg HSZ PO 09/02/17 22:00 10/02/17 21:59 09/02/17 21:06 50 MG Objective Vital Signs Date Time Temp Pulse Resp B/P (MAP) Pulse Ox O2 Delivery O2 Flow Rate FiO2 09/03/17 08:00 Room Air 09/03/17 07:55 36.2 85 18 158/90 (112) 97 Room Air 09/03/17 00:05 Room Air 09/02/17 23:53 36.8 73 16 111/66 (81) 97 Room Air 09/02/17 19:51 80 124/76 (92) 09/02/17 16:00 Room Air 09/02/17 15:28 37.0 76 18 119/80 (93) 97 Room Air Physical Exam General Appearance: no apparent distress, + obese Respiratory/Chest: lungs clear, normal breath sounds, no respiratory distress, no accessory muscle use Cardiovascular: regular rate, rhythm, no edema, no murmur Neurologic/Psychiatric: no motor/sensory deficits, alert, normal mood/affect Laboratory Results Last 24 Hours Test 09/02/17 11:14 09/02/17 11:54 09/02/17 16:40 09/02/17 20:20 Bedside Glucose 193 mg/dl 174 mg/dl 190 mg/dl Lactic Acid Level 1.9 mmol/L Test 09/03/17 05:27 09/03/17 07:40 White Blood Count 4.64 K/uL Red Blood Count 3.28 M/uL Hemoglobin 10.2 g/dL Hematocrit 30.2 % Mean Corpuscular Volume 92.1 fL Mean Corpuscular Hemoglobin 31.1 pg Mean Corpuscular Hemoglobin Concent 33.8 g/dl RDW Standard Deviation 51.7 fL RDW Coefficient of Variation 15.7 % Platelet Count 308 K/uL Mean Platelet Volume 8.1 fL Sodium Level 143 mmol/L Potassium Level 3.7 mmol/L Chloride Level 111 mmol/L Carbon Dioxide Level 23 mmol/L Anion Gap 8.0 mmol/L Blood Urea Nitrogen 10 mg/dl Creatinine 0.70 mg/dl Est Creatinine Clear Calc Drug Dose 81.6 ml/min Estimated GFR () 103.2 Estimated GFR (Non- 89.0 BUN/Creatinine Ratio 14.9 Random Glucose 144 mg/dl Calcium Level 8.3 mg/dl Bedside Glucose 138 mg/dl Assessment and Plan This is a 67 year old female with a PMH of HTN, hx. of subdural hematoma, hx. of TIA, hx. of PSVT, depression/anxiety, s/p bariatric surgery - presents with weakness, lightheadedness, cough/congestion Community Acquired Pneumonia 09/03 * patient improving; one more day of Rocephin and Doxy - can likely d/c on just doxycycline to total out 5 days 09/02 * unsure if this is actually pneumonia due to CXR showing nodular opacities, which could likely represent previous known pulmonary nodules * either way, patient does have some symptoms, including lightheadedness, cough/ congestion * will do 3-5 days of abx. - currently on Rocephin + Doxy * lactic acid was elevated - though patient telling me that she has had trouble with this since her gastric bypass surgery - now resolved Acute Kidney Injury Dehydration Hypokalemia 09/03 * resolved with IVFs 09/02 * question of diarrhea, which patient is now denying * potassium initially low, now repleted * creatinine initially elevated but no back to baseline * will decrease fluid rate and will d/c fluids later today (09/02) Chest Pain * this does not seem like ACS, and more likely related to anxiety * cardiac enzymes negative x2, EKG with no ST/T wave changes * stress test about one year prior in 2017 - negative Depression/Anxiety * continue current medications * can use Ativan PRN, which has helped with her chest pain DVT ppx * SCDs FULL CODE d/c home on 09/04
[2017-09-03 15:04] VITALS: BP 181/118; PULSE 71; TEMP 36.4; O2SAT 97
[2017-09-03 16:15] VITALS: O2SAT 97
[2017-09-03 17:14] VITALS: BP 131/84; PULSE 77; O2SAT 97
[2017-09-03 19:25] VITALS: BP 143/83; PULSE 65; O2SAT 99
[2017-09-03] MEDS: TRAZODONE HCL 50 MG TAB PO SCH (20:56)
[2017-09-03] MEDS: MIRTAZAPINE TAB 15 MG TAB PO SCH (20:57)
[2017-09-04 00:01] VITALS: BP 165/92; PULSE 64; TEMP 36.2; O2SAT 96
[2017-09-04] MEDS: CEFTRIAXONE SOD INJ 1000 MG in DEXTROSE 5% 50ML IV SCH (01:16)
[2017-09-04] MEDS: TRAMADOL HCL 50 MG TAB PO PRN ×4 (03:10→21:39)
[2017-09-04 07:12] VITALS: BP 148/89; PULSE 70; TEMP 36.8; O2SAT 98
[2017-09-04 07:26] LABS: CALCIUM 8.5 mg/dl (8.5-10.1); CREATININE 0.71 mg/dl (0.60-1.20); POTASSIUM 3.9 mmol/L (3.5-5.1)
[2017-09-04] MEDS: LACTOBACILLUS ACIDOPHILUS (FLORANEX) TAB PO SCH ×4 (07:54→21:18)
[2017-09-04] MEDS: PANTOprazole SOD 40 MG TAB PO SCH (07:54)
[2017-09-04] MEDS: MULTIVITAMIN TAB PO SCH (07:54)
[2017-09-04] MEDS: PROPRANOLOL HCL 20 MG TAB PO SCH ×3 (07:54→21:17)
[2017-09-04] MEDS: CLOPIDOGREL BISULFATE 75 MG TAB PO SCH (07:55)
[2017-09-04] MEDS: AMLODIPINE BESYLATE 5 MG TAB PO SCH (07:55)
[2017-09-04] MEDS: DULOXETINE HCL 60 MG CAP PO SCH (07:55)
[2017-09-04] MEDS: INSULIN GLARGINE SOLOSTAR 100 UNITS/ML 3 ML PEN SC SCH (07:56)
[2017-09-04] MEDS: DOXYCYCLINE HYCLATE 100 MG CAP PO SCH (07:56)
[2017-09-04] MEDS: INSULIN ASPART 100 UNITS/ML 3 ML PEN SC SCH ×4 (08:25→21:00)
--- NOTE | 2017-09-04 16:06 | Progress Note ---
Subjective Date of Service: Sep 04, 2017. Subjective Pt evaluation today including: conversation w/ patient, physical exam, lab review, review of studies, review of inpatient medication list Saw/examined the patient in room 405 Problem List Medical Problems: (1) Ambulatory dysfunction Status: Acute (2) Anemia Status: Acute (3) Chronic left shoulder pain Status: Acute (4) Chronic low back pain Status: Acute (5) Confusion Status: Acute (6) Dehydration Status: Acute (7) Dehydration Status: Acute (8) Diarrhea Status: Acute (9) Dizziness Status: Acute (10) Dizziness Status: Acute (11) Dizziness, nonspecific Status: Acute (12) Epigastric abdominal pain Status: Acute (13) Headache Status: Acute (14) Hypertensive urgency Status: Acute (15) Hypokalemia Status: Acute (16) Hypokalemia Status: Acute (17) Nausea Status: Acute (18) Nausea & vomiting Status: Acute (19) Near syncope Status: Acute (20) Neck mass Status: Acute (21) Neuropathy Status: Acute (22) Obesity Status: Acute (23) Pneumonia involving left lung Status: Acute (24) Polypharmacy Status: Acute (25) Radiating chest pain Status: Acute (26) SIRS (systemic inflammatory response syndrome) Status: Acute (27) Slurred speech Status: Acute (28) Tachycardia Status: Acute (29) TIA (transient ischemic attack) Status: Acute (30) Viral syndrome Status: Acute Review of Systems Constitutional: + weakness, No fever, No chills Respiratory: No cough, No sputum, No wheezing, No shortness of breath, No dyspnea on exertion, No dyspnea at rest, No hemoptysis Cardiac: No chest pain Abdomen: + diarrhea, No pain, No nausea, No vomiting Musculoskeletal: No joint pain Female : No dysuria, No urinary frequency Heme: No abnormal bleeding/bruising Medications Current Inpatient Medications Medications (Trade) Dose Ordered Sig/Valente Route Start Time Stop Time Status Last Admin Dose Admin Amlodipine Besylate (Norvasc Tab) 5 mg DAILY PO 09/02/17 08:00 10/02/17 08:59 09/04/17 07:55 5 MG Clopidogrel Bisulfate (plAVix TAB) 75 mg QAM PO 09/02/17 08:00 10/02/17 08:59 09/04/17 07:55 75 MG Duloxetine HCl (Cymbalta Cap) 60 mg DAILY PO 09/02/17 08:00 10/02/17 08:59 09/04/17 07:55 60 MG Hydroxyzine HCl (Vistaril Tab) 25 mg BID PRN PO 09/01/17 23:00 10/01/17 22:59 09/02/17 19:56 25 MG Mirtazapine (Remeron Tab) 15 mg HS PO 09/02/17 21:00 10/02/17 20:59 09/03/17 20:57 15 MG Multivitamins (Multivitamin Tab) 1 tab DAILY PO 09/02/17 08:00 10/02/17 08:59 09/04/17 07:54 1 TAB Propranolol HCl (Inderal Tab) 20 mg TID PO 09/02/17 08:00 10/02/17 08:59 09/04/17 13:38 20 MG Tramadol HCl (Ultram Tab) not relieved by tylenol @ Q6H PRN PO 09/01/17 23:00 10/01/17 22:59 09/04/17 09:40 50 MG Prochlorperazine Edisylate 5 mg/ Syringe 5 ml @ 5 mls/min Q6H PRN IV 09/01/17 23:00 10/01/17 22:59 Doxycycline Hyclate (Vibramycin Cap) 100 mg BID PO 09/02/17 11:00 09/09/17 10:59 09/04/17 07:56 100 MG Lactobacillus Acidophilus (Floranex Tab) 4 tab QIDM PO 09/02/17 08:00 10/02/17 07:59 09/04/17 11:35 4 TAB Acetaminophen (Tylenol Tab) 650 mg Q4H PRN PO 09/01/17 23:15 10/01/17 23:14 Insulin Aspart (novoLOG ASPART) SLIDING SCALE If C... ACHS SC 09/02/17 06:30 10/02/17 06:59 Glucose (Glucose 40% Gel) 15-30 GRAMS 15 GRAMS... UD PRN PO 09/01/17 23:15 10/01/17 23:14 Glucose (Glucose Chew Tab) 4-8 Tablets 4 Tabl... UD PRN PO 09/01/17 23:15 10/01/17 23:14 Dextrose (Dextrose 50% 50ML Syringe) 25-50ML OF 50% DW IV FOR... UD PRN IV 09/01/17 23:15 10/01/17 23:14 Glucagon (Glucagon Inj) 1 mg UD PRN SQ 09/01/17 23:15 10/01/17 23:14 Miscellaneous Information (Order Awaiting Action) 1 ea QS N/A 09/02/17 08:00 10/02/17 07:59 Albuterol/ Ipratropium (Duoneb) 3 ml Q2H PRN INH 09/01/17 23:15 10/01/17 23:14 Ceftriaxone Sodium 1 gm/ Dextrose 50 ml @ 100 mls/hr Q24H IV 09/02/17 01:00 09/09/17 00:59 09/04/17 01:16 100 MLS/HR Insulin Glargine (Lantus Solostar Pen) 5 units DAILY SC 09/03/17 08:00 10/03/17 07:59 Pantoprazole Sodium (Protonix Tab) 40 mg DAILY PO 09/03/17 08:00 10/03/17 07:59 09/04/17 07:54 40 MG Trazodone HCl (Desyrel Tab) 50 mg HSZ PO 09/02/17 22:00 10/02/17 21:59 09/03/17 20:56 50 MG Objective Vital Signs Date Time Temp Pulse Resp B/P (MAP) Pulse Ox O2 Delivery O2 Flow Rate FiO2 09/04/17 08:00 Room Air 09/04/17 07:12 36.8 70 18 148/89 (108) 98 Room Air 09/04/17 00:01 36.2 64 16 165/92 (116) 96 Room Air 09/03/17 23:28 Room Air 09/03/17 19:25 65 143/83 (103) 99 Room Air 09/03/17 17:14 77 131/84 (100) 97 Room Air 09/03/17 16:15 97 Room Air 09/03/17 15:04 36.4 71 16 181/118 (139) 97 Room Air Physical Exam General Appearance: no apparent distress, + obese Respiratory/Chest: lungs clear, normal breath sounds, no respiratory distress, no accessory muscle use Abdomen: non tender, soft, + abnormal bowel sounds (hyperactive bowel sounds) Laboratory Results Last 24 Hours Test 3/15/18 16:34 09/03/17 20:08 09/04/17 06:42 09/04/17 07:36 Bedside Glucose 195 mg/dl 128 mg/dl 140 mg/dl Sodium Level 140 mmol/L Potassium Level 3.9 mmol/L Chloride Level 108 mmol/L Carbon Dioxide Level 25 mmol/L Anion Gap 7.0 mmol/L Blood Urea Nitrogen 8 mg/dl Creatinine 0.71 mg/dl Est Creatinine Clear Calc Drug Dose 80.4 ml/min Estimated GFR () 101.4 Estimated GFR (Non- 87.5 BUN/Creatinine Ratio 11.1 Random Glucose 131 mg/dl Calcium Level 8.5 mg/dl Vitamin B12 Level 970 pg/mL Thyroid Stimulating Hormone (TSH) 2.310 uIu/ml Test 09/04/17 11:26 Bedside Glucose 126 mg/dl Assessment and Plan This is a 67 year old female with a PMH of HTN, hx. of subdural hematoma, hx. of TIA, hx. of PSVT, depression/anxiety, s/p bariatric surgery - presents with weakness, lightheadedness, cough/congestion Community Acquired Pneumonia 09/04 * will d/c all antibiotics * due to diarrhea, will check a c. diff - possibly a side effect to antibiotic use 09/03 * patient improving; one more day of Rocephin and Doxy - can likely d/c on just doxycycline to total out 5 days 09/02 * unsure if this is actually pneumonia due to CXR showing nodular opacities, which could likely represent previous known pulmonary nodules * either way, patient does have some symptoms, including lightheadedness, cough/ congestion * will do 3-5 days of abx. - currently on Rocephin + Doxy * lactic acid was elevated - though patient telling me that she has had trouble with this since her gastric bypass surgery - now resolved Acute Kidney Injury Dehydration Hypokalemia 09/03 * resolved with IVFs 09/02 * question of diarrhea, which patient is now denying * potassium initially low, now repleted * creatinine initially elevated but no back to baseline * will decrease fluid rate and will d/c fluids later today (09/02) Chest Pain * this does not seem like ACS, and more likely related to anxiety * cardiac enzymes negative x2, EKG with no ST/T wave changes * stress test about one year prior in 2017 - negative Depression/Anxiety * continue current medications * can use Ativan PRN, which has helped with her chest pain DVT ppx * SCDs FULL CODE d/c home on 09/04
[2017-09-04 16:21] VITALS: BP 135/81; PULSE 75; TEMP 36.6; O2SAT 99
[2017-09-04] MEDS: PROCHLORPERAZINE INJ 5 MG in SYRINGE 4 ML IV PRN (18:38)
[2017-09-04] MEDS: TRAZODONE HCL 50 MG TAB PO SCH (21:17)
[2017-09-04] MEDS: MIRTAZAPINE TAB 15 MG TAB PO SCH (21:17)
[2017-09-05] VITALS: BP 122/74; PULSE 70; TEMP 36.6; O2SAT 93
[2017-09-05] MEDS: TRAMADOL HCL 50 MG TAB PO PRN ×4 (04:06→23:47)
[2017-09-05 06:18] LABS: CALCIUM 8.3 mg/dl (8.5-10.1); CREATININE 0.65 mg/dl (0.60-1.20); POTASSIUM 3.8 mmol/L (3.5-5.1)
[2017-09-05] MEDS: PROCHLORPERAZINE INJ 5 MG in SYRINGE 4 ML IV PRN ×2 (06:57→20:40)
[2017-09-05 07:27] VITALS: BP 152/78; PULSE 72; TEMP 36.8; O2SAT 96
[2017-09-05] MEDS: INSULIN GLARGINE SOLOSTAR 100 UNITS/ML 3 ML PEN SC SCH (08:00)
[2017-09-05] MEDS: INSULIN ASPART 100 UNITS/ML 3 ML PEN SC SCH ×4 (08:11→20:42)
[2017-09-05] MEDS: LACTOBACILLUS ACIDOPHILUS (FLORANEX) TAB PO SCH ×4 (08:16→20:41)
[2017-09-05] MEDS: PROPRANOLOL HCL 20 MG TAB PO SCH ×3 (08:17→20:42)
[2017-09-05] MEDS: CLOPIDOGREL BISULFATE 75 MG TAB PO SCH (08:17)
[2017-09-05] MEDS: MULTIVITAMIN TAB PO SCH (08:17)
[2017-09-05] MEDS: DULOXETINE HCL 60 MG CAP PO SCH (08:17)
[2017-09-05] MEDS: PANTOprazole SOD 40 MG TAB PO SCH (08:17)
[2017-09-05] MEDS: LOSARTAN POTASSIUM 50 MG TAB PO SCH (08:18)
[2017-09-05] MEDS: AMLODIPINE BESYLATE 5 MG TAB PO SCH (08:18)
[2017-09-05] MEDS: RASPBERRY SYRUP 5 ML UDP PO SCH ×3 (09:46→17:27)
[2017-09-05] MEDS: VANCOMYCIN HCL 125 MG/2.5ML SOLN PO SCH ×3 (09:46→17:27)
--- NOTE | 2017-09-05 10:07 | Progress Note ---
Subjective Date of Service: Sep 05, 2017. Subjective Pt evaluation today including: conversation w/ patient, physical exam, lab review, review of studies, review of inpatient medication list Saw/examined the patient in room 405 patient has had 6-7 episodes of diarrhea this morning stool collected earlier this morning - positive for c. diff patient is feeling okay besides diarrhea and weakness; agreeable to stay in the hospital until diarrhea slows down no fevers/chills Problem List Medical Problems: (1) Ambulatory dysfunction Status: Acute (2) Anemia Status: Acute (3) Chronic left shoulder pain Status: Acute (4) Chronic low back pain Status: Acute (5) Confusion Status: Acute (6) Dehydration Status: Acute (7) Dehydration Status: Acute (8) Diarrhea Status: Acute (9) Dizziness Status: Acute (10) Dizziness Status: Acute (11) Dizziness, nonspecific Status: Acute (12) Epigastric abdominal pain Status: Acute (13) Headache Status: Acute (14) Hypertensive urgency Status: Acute (15) Hypokalemia Status: Acute (16) Hypokalemia Status: Acute (17) Nausea Status: Acute (18) Nausea & vomiting Status: Acute (19) Near syncope Status: Acute (20) Neck mass Status: Acute (21) Neuropathy Status: Acute (22) Obesity Status: Acute (23) Pneumonia involving left lung Status: Acute (24) Polypharmacy Status: Acute (25) Radiating chest pain Status: Acute (26) SIRS (systemic inflammatory response syndrome) Status: Acute (27) Slurred speech Status: Acute (28) Tachycardia Status: Acute (29) TIA (transient ischemic attack) Status: Acute (30) Viral syndrome Status: Acute Review of Systems Constitutional: No fever, No chills Respiratory: No cough, No sputum, No shortness of breath Cardiac: No chest pain Abdomen: + diarrhea, No pain, No nausea, No vomiting, No constipation, No GI bleeding Medications Current Inpatient Medications Medications (Trade) Dose Ordered Sig/Valente Route Start Time Stop Time Status Last Admin Dose Admin Amlodipine Besylate (Norvasc Tab) 5 mg DAILY PO 09/02/17 08:00 10/02/17 08:59 09/05/17 08:18 5 MG Clopidogrel Bisulfate (plAVix TAB) 75 mg QAM PO 09/02/17 08:00 10/02/17 08:59 09/05/17 08:17 75 MG Duloxetine HCl (Cymbalta Cap) 60 mg DAILY PO 09/02/17 08:00 10/02/17 08:59 09/05/17 08:17 60 MG Hydroxyzine HCl (Vistaril Tab) 25 mg BID PRN PO 09/01/17 23:00 10/01/17 22:59 09/02/17 19:56 25 MG Mirtazapine (Remeron Tab) 15 mg HS PO 09/02/17 21:00 10/02/17 20:59 09/04/17 21:17 15 MG Multivitamins (Multivitamin Tab) 1 tab DAILY PO 09/02/17 08:00 10/02/17 08:59 09/05/17 08:17 1 TAB Propranolol HCl (Inderal Tab) 20 mg TID PO 09/02/17 08:00 10/02/17 08:59 09/05/17 08:17 20 MG Tramadol HCl (Ultram Tab) not relieved by tylenol @ Q6H PRN PO 09/01/17 23:00 10/01/17 22:59 09/05/17 04:06 50 MG Prochlorperazine Edisylate 5 mg/ Syringe 5 ml @ 5 mls/min Q6H PRN IV 09/01/17 23:00 10/01/17 22:59 09/05/17 06:57 5 MLS/MIN Lactobacillus Acidophilus (Floranex Tab) 4 tab QIDM PO 09/02/17 08:00 10/02/17 07:59 09/05/17 08:16 4 TAB Acetaminophen (Tylenol Tab) 650 mg Q4H PRN PO 09/01/17 23:15 10/01/17 23:14 Insulin Aspart (novoLOG ASPART) SLIDING SCALE If C... ACHS SC 09/02/17 06:30 10/02/17 06:59 Glucose (Glucose 40% Gel) 15-30 GRAMS 15 GRAMS... UD PRN PO 09/01/17 23:15 10/01/17 23:14 Glucose (Glucose Chew Tab) 4-8 Tablets 4 Tabl... UD PRN PO 09/01/17 23:15 10/01/17 23:14 Dextrose (Dextrose 50% 50ML Syringe) 25-50ML OF 50% DW IV FOR... UD PRN IV 09/01/17 23:15 10/01/17 23:14 Glucagon (Glucagon Inj) 1 mg UD PRN SQ 09/01/17 23:15 10/01/17 23:14 Miscellaneous Information (Order Awaiting Action) 1 ea QS N/A 09/02/17 08:00 10/02/17 07:59 Albuterol/ Ipratropium (Duoneb) 3 ml Q2H PRN INH 09/01/17 23:15 10/01/17 23:14 Insulin Glargine (Lantus Solostar Pen) 5 units DAILY SC 09/03/17 08:00 10/03/17 07:59 Pantoprazole Sodium (Protonix Tab) 40 mg DAILY PO 09/03/17 08:00 10/03/17 07:59 09/05/17 08:17 40 MG Trazodone HCl (Desyrel Tab) 50 mg HSZ PO 09/02/17 22:00 10/02/17 21:59 09/04/17 21:17 50 MG Losartan Potassium (coZAAR TAB) 50 mg DAILY PO 09/05/17 08:00 10/05/17 07:59 09/05/17 08:18 50 MG Vancomycin HCl (Vancomycin Oral Soln) 125 mg Q6 PO 09/05/17 09:15 09/19/17 09:14 09/05/17 09:46 125 MG Raspberry (Raspberry Syrup 5ml Cup) 5 ml Q6 PO 09/05/17 09:15 09/19/17 09:14 09/05/17 09:46 5 ML Objective Vital Signs Date Time Temp Pulse Resp B/P (MAP) Pulse Ox O2 Delivery O2 Flow Rate FiO2 09/05/17 07:27 36.8 72 18 152/78 (102) 96 Room Air 09/05/17 00:20 Room Air 09/05/17 00:00 36.6 70 20 122/74 (90) 93 Room Air 09/04/17 16:21 36.6 75 18 135/81 (99) 99 Room Air 09/04/17 16:10 Room Air Physical Exam General Appearance: no apparent distress, + obese Respiratory/Chest: chest non-tender, lungs clear, normal breath sounds, no respiratory distress, no accessory muscle use Cardiovascular: regular rate, rhythm, no edema, no murmur Abdomen: non tender, soft, + abnormal bowel sounds (hyperactive bowel sounds) Laboratory Results Last 24 Hours Test 09/04/17 11:26 09/04/17 16:58 09/04/17 20:43 09/05/17 05:32 Bedside Glucose 126 mg/dl 211 mg/dl 187 mg/dl Sodium Level 141 mmol/L Potassium Level 3.8 mmol/L Chloride Level 109 mmol/L Carbon Dioxide Level 24 mmol/L Anion Gap 8.0 mmol/L Blood Urea Nitrogen 8 mg/dl Creatinine 0.65 mg/dl Est Creatinine Clear Calc Drug Dose 87.9 ml/min Estimated GFR () 105.7 Estimated GFR (Non- 91.2 BUN/Creatinine Ratio 12.2 Random Glucose 128 mg/dl Calcium Level 8.3 mg/dl Test 09/05/17 07:48 Bedside Glucose 162 mg/dl Assessment and Plan This is a 67 year old female with a PMH of HTN, hx. of subdural hematoma, hx. of TIA, hx. of PSVT, depression/anxiety, s/p bariatric surgery - presents with weakness, lightheadedness, cough/congestion C. Diff Infection * patient is positive for C. diff * last episode was 3-4 years prior * will start oral Vancomycin, will need 125mg QID for 14 days * once diarrhea slowing, can d/c home Community Acquired Pneumonia 09/04 * will d/c all antibiotics * due to diarrhea, will check a c. diff - possibly a side effect to antibiotic use 09/03 * patient improving; one more day of Rocephin and Doxy - can likely d/c on just doxycycline to total out 5 days 09/02 * unsure if this is actually pneumonia due to CXR showing nodular opacities, which could likely represent previous known pulmonary nodules * either way, patient does have some symptoms, including lightheadedness, cough/ congestion * will do 3-5 days of abx. - currently on Rocephin + Doxy * lactic acid was elevated - though patient telling me that she has had trouble with this since her gastric bypass surgery - now resolved Acute Kidney Injury Dehydration Hypokalemia 09/03 * resolved with IVFs 09/02 * question of diarrhea, which patient is now denying * potassium initially low, now repleted * creatinine initially elevated but no back to baseline * will decrease fluid rate and will d/c fluids later today (09/02) Chest Pain * this does not seem like ACS, and more likely related to anxiety * cardiac enzymes negative x2, EKG with no ST/T wave changes * stress test about one year prior in 2017 - negative Depression/Anxiety * continue current medications * can use Ativan PRN, which has helped with her chest pain DVT ppx * SCDs FULL CODE
[2017-09-05 16:16] VITALS: BP 112/76; PULSE 77; TEMP 36.3; O2SAT 98
[2017-09-05] MEDS: MIRTAZAPINE TAB 15 MG TAB PO SCH (20:42)
[2017-09-05] MEDS: TRAZODONE HCL 50 MG TAB PO SCH (20:42)
[2017-09-06] VITALS: BP 123/78; PULSE 68; TEMP 36.7; O2SAT 96
[2017-09-06] MEDS: VANCOMYCIN HCL 125 MG/2.5ML SOLN PO SCH ×5 (00:04→23:48)
[2017-09-06] MEDS: RASPBERRY SYRUP 5 ML UDP PO SCH ×5 (00:04→23:48)
[2017-09-06 06:19] LABS: HEMATOCRIT 31.5 % (37-47); HEMOGLOBIN 10.3 g/dL (12.0-16.0); MEAN CELL VOLUME 93.2 fL (80-100); MEAN CORPUSCULAR HEMOGLOBIN 30.5 pg (25-34); MEAN CORPUSCULAR HGB CONC 32.7 g/dl (32-36); MEAN PLATELET VOLUME 7.8 fL (7.4-10.4); PLATELET COUNT 327 K/uL (130-400); RED CELL DISTRIBUTION WIDTH CV 15.8 % (11.5-14.5); RED CELL DISTRIBUTION WIDTH SD 53.3 fL (36.4-46.3); WHITE BLOOD COUNT 5.85 K/uL (4.8-10.8)
[2017-09-06 06:41] LABS: CALCIUM 8.2 mg/dl (8.5-10.1); CREATININE 0.64 mg/dl (0.60-1.20)
[2017-09-06 07:26] VITALS: BP 160/91; PULSE 87; TEMP 37; O2SAT 98
[2017-09-06] MEDS: LOSARTAN POTASSIUM 50 MG TAB PO SCH (08:35)
[2017-09-06] MEDS: LACTOBACILLUS ACIDOPHILUS (FLORANEX) TAB PO SCH ×4 (08:35→20:49)
[2017-09-06] MEDS: DULOXETINE HCL 60 MG CAP PO SCH (08:35)
[2017-09-06] MEDS: CLOPIDOGREL BISULFATE 75 MG TAB PO SCH (08:36)
[2017-09-06] MEDS: AMLODIPINE BESYLATE 5 MG TAB PO SCH (08:36)
[2017-09-06] MEDS: PROPRANOLOL HCL 20 MG TAB PO SCH ×3 (08:36→20:49)
[2017-09-06] MEDS: MULTIVITAMIN TAB PO SCH (08:36)
[2017-09-06] MEDS: PANTOprazole SOD 40 MG TAB PO SCH (08:36)
[2017-09-06] MEDS: TRAMADOL HCL 50 MG TAB PO PRN ×3 (08:37→20:46)
[2017-09-06] MEDS: INSULIN ASPART 100 UNITS/ML 3 ML PEN SC SCH ×4 (08:39→20:46)
[2017-09-06] MEDS: INSULIN GLARGINE SOLOSTAR 100 UNITS/ML 3 ML PEN SC SCH (08:39)
--- NOTE | 2017-09-06 10:09 | Progress Note ---
Subjective Date of Service: Sep 06, 2017. Subjective Pt evaluation today including: conversation w/ patient, physical exam, lab review, review of studies, review of inpatient medication list Saw/examined the patient in room 405 +diarrhea persists, 4 episodes this morning no fevers/chills feeling +weak Problem List Medical Problems: (1) Ambulatory dysfunction Status: Acute (2) Anemia Status: Acute (3) Chronic left shoulder pain Status: Acute (4) Chronic low back pain Status: Acute (5) Confusion Status: Acute (6) Dehydration Status: Acute (7) Dehydration Status: Acute (8) Diarrhea Status: Acute (9) Dizziness Status: Acute (10) Dizziness Status: Acute (11) Dizziness, nonspecific Status: Acute (12) Epigastric abdominal pain Status: Acute (13) Headache Status: Acute (14) Hypertensive urgency Status: Acute (15) Hypokalemia Status: Acute (16) Hypokalemia Status: Acute (17) Nausea Status: Acute (18) Nausea & vomiting Status: Acute (19) Near syncope Status: Acute (20) Neck mass Status: Acute (21) Neuropathy Status: Acute (22) Obesity Status: Acute (23) Pneumonia involving left lung Status: Acute (24) Polypharmacy Status: Acute (25) Radiating chest pain Status: Acute (26) SIRS (systemic inflammatory response syndrome) Status: Acute (27) Slurred speech Status: Acute (28) Tachycardia Status: Acute (29) TIA (transient ischemic attack) Status: Acute (30) Viral syndrome Status: Acute Review of Systems Respiratory: No shortness of breath Cardiac: No chest pain Abdomen: + diarrhea, No pain, No nausea, No vomiting, No constipation, No GI bleeding Medications Current Inpatient Medications Medications (Trade) Dose Ordered Sig/Valente Route Start Time Stop Time Status Last Admin Dose Admin Amlodipine Besylate (Norvasc Tab) 5 mg DAILY PO 09/02/17 08:00 10/02/17 08:59 09/06/17 08:36 5 MG Clopidogrel Bisulfate (plAVix TAB) 75 mg QAM PO 09/02/17 08:00 10/02/17 08:59 09/06/17 08:36 75 MG Duloxetine HCl (Cymbalta Cap) 60 mg DAILY PO 09/02/17 08:00 10/02/17 08:59 09/06/17 08:35 60 MG Hydroxyzine HCl (Vistaril Tab) 25 mg BID PRN PO 09/01/17 23:00 10/01/17 22:59 09/02/17 19:56 25 MG Mirtazapine (Remeron Tab) 15 mg HS PO 09/02/17 21:00 10/02/17 20:59 09/05/17 20:42 15 MG Multivitamins (Multivitamin Tab) 1 tab DAILY PO 09/02/17 08:00 10/02/17 08:59 09/06/17 08:36 1 TAB Propranolol HCl (Inderal Tab) 20 mg TID PO 09/02/17 08:00 10/02/17 08:59 09/06/17 08:36 20 MG Tramadol HCl (Ultram Tab) not relieved by tylenol @ Q6H PRN PO 09/01/17 23:00 10/01/17 22:59 09/06/17 08:37 50 MG Prochlorperazine Edisylate 5 mg/ Syringe 5 ml @ 5 mls/min Q6H PRN IV 09/01/17 23:00 10/01/17 22:59 09/05/17 20:40 5 MLS/MIN Lactobacillus Acidophilus (Floranex Tab) 4 tab QIDM PO 09/02/17 08:00 10/02/17 07:59 09/06/17 08:35 4 TAB Acetaminophen (Tylenol Tab) 650 mg Q4H PRN PO 09/01/17 23:15 10/01/17 23:14 Insulin Aspart (novoLOG ASPART) SLIDING SCALE If C... ACHS SC 09/02/17 06:30 10/02/17 06:59 Glucose (Glucose 40% Gel) 15-30 GRAMS 15 GRAMS... UD PRN PO 09/01/17 23:15 10/01/17 23:14 Glucose (Glucose Chew Tab) 4-8 Tablets 4 Tabl... UD PRN PO 09/01/17 23:15 10/01/17 23:14 Dextrose (Dextrose 50% 50ML Syringe) 25-50ML OF 50% DW IV FOR... UD PRN IV 09/01/17 23:15 10/01/17 23:14 Glucagon (Glucagon Inj) 1 mg UD PRN SQ 09/01/17 23:15 10/01/17 23:14 Miscellaneous Information (Order Awaiting Action) 1 ea QS N/A 09/02/17 08:00 10/02/17 07:59 Albuterol/ Ipratropium (Duoneb) 3 ml Q2H PRN INH 09/01/17 23:15 10/01/17 23:14 Insulin Glargine (Lantus Solostar Pen) 5 units DAILY SC 09/03/17 08:00 10/03/17 07:59 Pantoprazole Sodium (Protonix Tab) 40 mg DAILY PO 09/03/17 08:00 10/03/17 07:59 09/06/17 08:36 40 MG Trazodone HCl (Desyrel Tab) 50 mg HSZ PO 09/02/17 22:00 10/02/17 21:59 09/05/17 20:42 50 MG Losartan Potassium (coZAAR TAB) 50 mg DAILY PO 09/05/17 08:00 10/05/17 07:59 09/06/17 08:35 50 MG Vancomycin HCl (Vancomycin Oral Soln) 125 mg Q6 PO 09/05/17 09:15 09/19/17 09:14 09/06/17 06:10 125 MG Raspberry (Raspberry Syrup 5ml Cup) 5 ml Q6 PO 09/05/17 09:15 09/19/17 09:14 09/06/17 06:10 5 ML Objective Vital Signs Date Time Temp Pulse Resp B/P (MAP) Pulse Ox O2 Delivery O2 Flow Rate FiO2 09/06/17 07:26 37.0 87 16 160/91 (114) 98 Room Air 09/06/17 00:20 Room Air 09/06/17 00:00 36.7 68 20 123/78 (93) 96 Room Air 09/05/17 20:15 Room Air 09/05/17 16:16 36.3 77 18 112/76 (88) 98 Room Air 09/05/17 15:25 Room Air 09/05/17 11:08 Room Air Physical Exam General Appearance: no apparent distress Respiratory/Chest: no respiratory distress, no accessory muscle use Abdomen: normal bowel sounds, non tender, soft Laboratory Results Last 24 Hours Test 09/05/17 11:25 09/05/17 17:08 09/05/17 20:29 09/06/17 05:33 Bedside Glucose 190 mg/dl 178 mg/dl 139 mg/dl White Blood Count 5.85 K/uL Red Blood Count 3.38 M/uL Hemoglobin 10.3 g/dL Hematocrit 31.5 % Mean Corpuscular Volume 93.2 fL Mean Corpuscular Hemoglobin 30.5 pg Mean Corpuscular Hemoglobin Concent 32.7 g/dl RDW Standard Deviation 53.3 fL RDW Coefficient of Variation 15.8 % Platelet Count 327 K/uL Mean Platelet Volume 7.8 fL Sodium Level 139 mmol/L Potassium Level 4.0 mmol/L Chloride Level 107 mmol/L Carbon Dioxide Level 24 mmol/L Anion Gap 9.0 mmol/L Blood Urea Nitrogen 9 mg/dl Creatinine 0.64 mg/dl Est Creatinine Clear Calc Drug Dose 89.2 ml/min Estimated GFR () 106.3 Estimated GFR (Non- 91.7 BUN/Creatinine Ratio 13.9 Random Glucose 122 mg/dl Calcium Level 8.2 mg/dl Magnesium Level 1.8 mg/dl Test 09/06/17 07:38 Bedside Glucose 222 mg/dl Assessment and Plan This is a 67 year old female with a PMH of HTN, hx. of subdural hematoma, hx. of TIA, hx. of PSVT, depression/anxiety, s/p bariatric surgery - presents with weakness, lightheadedness, cough/congestion C. Diff Infection 09/06 * continue oral Vancomycin for a total of 2 weeks * diarrhea persistent, will likely d/c home in AM (09/07) if diarrhea slows 09/05 * patient is positive for C. diff * last episode was 3-4 years prior * will start oral Vancomycin, will need 125mg QID for 14 days * once diarrhea slowing, can d/c home Community Acquired Pneumonia 09/04 * will d/c all antibiotics * due to diarrhea, will check a c. diff - possibly a side effect to antibiotic use 09/03 * patient improving; one more day of Rocephin and Doxy - can likely d/c on just doxycycline to total out 5 days 09/02 * unsure if this is actually pneumonia due to CXR showing nodular opacities, which could likely represent previous known pulmonary nodules * either way, patient does have some symptoms, including lightheadedness, cough/ congestion * will do 3-5 days of abx. - currently on Rocephin + Doxy * lactic acid was elevated - though patient telling me that she has had trouble with this since her gastric bypass surgery - now resolved Acute Kidney Injury Dehydration Hypokalemia 09/03 * resolved with IVFs 09/02 * question of diarrhea, which patient is now denying * potassium initially low, now repleted * creatinine initially elevated but no back to baseline * will decrease fluid rate and will d/c fluids later today (09/02) Chest Pain * this does not seem like ACS, and more likely related to anxiety * cardiac enzymes negative x2, EKG with no ST/T wave changes * stress test about one year prior in 2017 - negative Depression/Anxiety * continue current medications * can use Ativan PRN, which has helped with her chest pain DVT ppx * SCDs FULL CODE
[2017-09-06] MEDS: PROCHLORPERAZINE INJ 5 MG in SYRINGE 4 ML IV PRN (10:43)
[2017-09-06 14:40] VITALS: BP 184/108; PULSE 95; TEMP 36.9
[2017-09-06 14:42] VITALS: BP 142/87; PULSE 98
[2017-09-06 16:02] VITALS: O2SAT 98
[2017-09-06] MEDS: MIRTAZAPINE TAB 15 MG TAB PO SCH (20:48)
[2017-09-06] MEDS: TRAZODONE HCL 50 MG TAB PO SCH (20:49)
[2017-09-06 23:04] VITALS: BP 128/76; PULSE 74; TEMP 36.9; O2SAT 94
[2017-09-07] MEDS: RASPBERRY SYRUP 5 ML UDP PO SCH ×3 (06:04→16:12)
[2017-09-07] MEDS: VANCOMYCIN HCL 125 MG/2.5ML SOLN PO SCH ×3 (06:04→16:12)
[2017-09-07] MEDS: TRAMADOL HCL 50 MG TAB PO PRN ×3 (06:05→19:58)
[2017-09-07 06:10] LABS: CALCIUM 8.3 mg/dl (8.5-10.1); CREATININE 0.67 mg/dl (0.60-1.20); POTASSIUM 4.1 mmol/L (3.5-5.1)
[2017-09-07 07:18] VITALS: BP 158/90; PULSE 81; TEMP 37; O2SAT 95
[2017-09-07] MEDS: INSULIN GLARGINE SOLOSTAR 100 UNITS/ML 3 ML PEN SC SCH (08:00)
[2017-09-07] MEDS: DULOXETINE HCL 60 MG CAP PO SCH (08:10)
[2017-09-07] MEDS: LOSARTAN POTASSIUM 50 MG TAB PO SCH (08:10)
[2017-09-07] MEDS: LACTOBACILLUS ACIDOPHILUS (FLORANEX) TAB PO SCH ×4 (08:10→19:48)
[2017-09-07] MEDS: MULTIVITAMIN TAB PO SCH (08:11)
[2017-09-07] MEDS: CLOPIDOGREL BISULFATE 75 MG TAB PO SCH (08:11)
[2017-09-07] MEDS: PANTOprazole SOD 40 MG TAB PO SCH (08:11)
[2017-09-07] MEDS: AMLODIPINE BESYLATE 5 MG TAB PO SCH (08:11)
[2017-09-07] MEDS: PROPRANOLOL HCL 20 MG TAB PO SCH ×3 (08:11→19:51)
[2017-09-07] MEDS: INSULIN ASPART 100 UNITS/ML 3 ML PEN SC SCH ×4 (08:12→19:58)
[2017-09-07 13:13] VITALS: BP 146/85; PULSE 78
[2017-09-07 13:32] VITALS: BP 146/85; PULSE 78; TEMP 37; O2SAT 95
[2017-09-07 15:50] VITALS: BP 136/83; PULSE 71; TEMP 36.9; O2SAT 95
--- NOTE | 2017-09-07 16:14 | Progress Note ---
Subjective Date of Service: Sep 07, 2017. Subjective Pt evaluation today including: conversation w/ patient, physical exam, lab review, review of studies, review of inpatient medication list Saw/examined the patient in room 405 She continues to have 7 episodes of diarrhea explained that I would discharge her, but states she would like her to stay another day to try to decrease diarrheal episodes Problem List Medical Problems: (1) Ambulatory dysfunction Status: Acute (2) Anemia Status: Acute (3) Chronic left shoulder pain Status: Acute (4) Chronic low back pain Status: Acute (5) Confusion Status: Acute (6) Dehydration Status: Acute (7) Dehydration Status: Acute (8) Diarrhea Status: Acute (9) Dizziness Status: Acute (10) Dizziness Status: Acute (11) Dizziness, nonspecific Status: Acute (12) Epigastric abdominal pain Status: Acute (13) Headache Status: Acute (14) Hypertensive urgency Status: Acute (15) Hypokalemia Status: Acute (16) Hypokalemia Status: Acute (17) Nausea Status: Acute (18) Nausea & vomiting Status: Acute (19) Near syncope Status: Acute (20) Neck mass Status: Acute (21) Neuropathy Status: Acute (22) Obesity Status: Acute (23) Pneumonia involving left lung Status: Acute (24) Polypharmacy Status: Acute (25) Radiating chest pain Status: Acute (26) SIRS (systemic inflammatory response syndrome) Status: Acute (27) Slurred speech Status: Acute (28) Tachycardia Status: Acute (29) TIA (transient ischemic attack) Status: Acute (30) Viral syndrome Status: Acute Review of Systems Constitutional: No fever, No chills Respiratory: No cough, No sputum, No shortness of breath Cardiac: No chest pain Abdomen: + diarrhea, No pain, No nausea, No vomiting, No constipation, No GI bleeding Medications Current Inpatient Medications Medications (Trade) Dose Ordered Sig/Valente Route Start Time Stop Time Status Last Admin Dose Admin Amlodipine Besylate (Norvasc Tab) 5 mg DAILY PO 09/02/17 08:00 10/02/17 08:59 09/07/17 08:11 5 MG Clopidogrel Bisulfate (plAVix TAB) 75 mg QAM PO 09/02/17 08:00 10/02/17 08:59 09/07/17 08:11 75 MG Duloxetine HCl (Cymbalta Cap) 60 mg DAILY PO 09/02/17 08:00 10/02/17 08:59 09/07/17 08:10 60 MG Hydroxyzine HCl (Vistaril Tab) 25 mg BID PRN PO 09/01/17 23:00 10/01/17 22:59 09/02/17 19:56 25 MG Mirtazapine (Remeron Tab) 15 mg HS PO 09/02/17 21:00 10/02/17 20:59 09/06/17 20:48 15 MG Multivitamins (Multivitamin Tab) 1 tab DAILY PO 09/02/17 08:00 10/02/17 08:59 09/07/17 08:11 1 TAB Propranolol HCl (Inderal Tab) 20 mg TID PO 09/02/17 08:00 10/02/17 08:59 09/07/17 13:13 20 MG Tramadol HCl (Ultram Tab) not relieved by tylenol @ Q6H PRN PO 09/01/17 23:00 10/01/17 22:59 09/07/17 14:16 50 MG Prochlorperazine Edisylate 5 mg/ Syringe 5 ml @ 5 mls/min Q6H PRN IV 09/01/17 23:00 10/01/17 22:59 09/06/17 10:43 5 MLS/MIN Lactobacillus Acidophilus (Floranex Tab) 4 tab QIDM PO 09/02/17 08:00 10/02/17 07:59 09/07/17 13:10 4 TAB Acetaminophen (Tylenol Tab) 650 mg Q4H PRN PO 09/01/17 23:15 10/01/17 23:14 Insulin Aspart (novoLOG ASPART) SLIDING SCALE If C... ACHS SC 09/02/17 06:30 10/02/17 06:59 Glucose (Glucose 40% Gel) 15-30 GRAMS 15 GRAMS... UD PRN PO 09/01/17 23:15 10/01/17 23:14 Glucose (Glucose Chew Tab) 4-8 Tablets 4 Tabl... UD PRN PO 09/01/17 23:15 10/01/17 23:14 Dextrose (Dextrose 50% 50ML Syringe) 25-50ML OF 50% DW IV FOR... UD PRN IV 09/01/17 23:15 10/01/17 23:14 Glucagon (Glucagon Inj) 1 mg UD PRN SQ 09/01/17 23:15 10/01/17 23:14 Miscellaneous Information (Order Awaiting Action) 1 ea QS N/A 09/02/17 08:00 10/02/17 07:59 Albuterol/ Ipratropium (Duoneb) 3 ml Q2H PRN INH 09/01/17 23:15 10/01/17 23:14 Insulin Glargine (Lantus Solostar Pen) 5 units DAILY SC 09/03/17 08:00 10/03/17 07:59 Pantoprazole Sodium (Protonix Tab) 40 mg DAILY PO 09/03/17 08:00 10/03/17 07:59 09/07/17 08:11 40 MG Trazodone HCl (Desyrel Tab) 50 mg HSZ PO 09/02/17 22:00 10/02/17 21:59 09/06/17 20:49 50 MG Losartan Potassium (coZAAR TAB) 50 mg DAILY PO 09/05/17 08:00 10/05/17 07:59 09/07/17 08:10 50 MG Vancomycin HCl (Vancomycin Oral Soln) 125 mg Q6 PO 09/05/17 09:15 09/19/17 09:14 09/07/17 13:10 125 MG Raspberry (Raspberry Syrup 5ml Cup) 5 ml Q6 PO 09/05/17 09:15 09/19/17 09:14 09/07/17 13:10 5 ML Objective Vital Signs Date Time Temp Pulse Resp B/P (MAP) Pulse Ox O2 Delivery O2 Flow Rate FiO2 09/07/17 15:50 36.9 71 18 136/83 (100) 95 Room Air 09/07/17 13:32 37.0 78 16 95 Room Air 09/07/17 13:13 78 146/85 (105) 09/07/17 08:20 Room Air 09/07/17 07:18 37.0 81 16 158/90 (112) 95 09/07/17 00:30 Room Air 09/06/17 23:04 36.9 74 20 128/76 (93) 94 Room Air Physical Exam General Appearance: no apparent distress Respiratory/Chest: no respiratory distress, no accessory muscle use Cardiovascular: regular rate, rhythm, no edema, no murmur Abdomen: normal bowel sounds, non tender, soft Laboratory Results Last 24 Hours Test 09/06/17 16:43 09/06/17 20:05 09/07/17 05:24 09/07/17 07:27 Bedside Glucose 125 mg/dl 143 mg/dl 163 mg/dl Sodium Level 140 mmol/L Potassium Level 4.1 mmol/L Chloride Level 107 mmol/L Carbon Dioxide Level 26 mmol/L Anion Gap 7.0 mmol/L Blood Urea Nitrogen 7 mg/dl Creatinine 0.67 mg/dl Est Creatinine Clear Calc Drug Dose 85.2 ml/min Estimated GFR () 104.7 Estimated GFR (Non- 90.3 BUN/Creatinine Ratio 10.5 Random Glucose 142 mg/dl Calcium Level 8.3 mg/dl Test 09/07/17 11:23 Bedside Glucose 118 mg/dl Assessment and Plan This is a 67 year old female with a PMH of HTN, hx. of subdural hematoma, hx. of TIA, hx. of PSVT, depression/anxiety, s/p bariatric surgery - presents with weakness, lightheadedness, cough/congestion C. Diff Infection 09/07 * patient continues to have 7-10 episodes of diarrhea daily * she will be on oral Vanco as outpatient * wants to make sure diarrhea is slowing prior to discharge * I explained that this can take a long time to resolve; they would be okay with discharge on 09/08 09/06 * continue oral Vancomycin for a total of 2 weeks * diarrhea persistent, will likely d/c home in AM (09/07) if diarrhea slows 09/05 * patient is positive for C. diff * last episode was 3-4 years prior * will start oral Vancomycin, will need 125mg QID for 14 days * once diarrhea slowing, can d/c home Community Acquired Pneumonia 09/04 * will d/c all antibiotics * due to diarrhea, will check a c. diff - possibly a side effect to antibiotic use 09/03 * patient improving; one more day of Rocephin and Doxy - can likely d/c on just doxycycline to total out 5 days 09/02 * unsure if this is actually pneumonia due to CXR showing nodular opacities, which could likely represent previous known pulmonary nodules * either way, patient does have some symptoms, including lightheadedness, cough/ congestion * will do 3-5 days of abx. - currently on Rocephin + Doxy * lactic acid was elevated - though patient telling me that she has had trouble with this since her gastric bypass surgery - now resolved Acute Kidney Injury Dehydration Hypokalemia 09/03 * resolved with IVFs 09/02 * question of diarrhea, which patient is now denying * potassium initially low, now repleted * creatinine initially elevated but no back to baseline * will decrease fluid rate and will d/c fluids later today (09/02) Chest Pain * this does not seem like ACS, and more likely related to anxiety * cardiac enzymes negative x2, EKG with no ST/T wave changes * stress test about one year prior in 2017 - negative Depression/Anxiety * continue current medications * can use Ativan PRN, which has helped with her chest pain DVT ppx * SCDs FULL CODE
[2017-09-07 16:30] VITALS: O2SAT 95
[2017-09-07] MEDS: MIRTAZAPINE TAB 15 MG TAB PO SCH (19:49)
[2017-09-07] MEDS: TRAZODONE HCL 50 MG TAB PO SCH (19:51)
[2017-09-07 23:25] VITALS: BP 130/83; PULSE 90; TEMP 36.9; O2SAT 94
[2017-09-08] MEDS: RASPBERRY SYRUP 5 ML UDP PO SCH ×3 (00:54→12:33)
[2017-09-08] MEDS: ONDANSETRON 4 MG TAB PO PRN ×2 (00:55→08:45)
[2017-09-08] MEDS: VANCOMYCIN HCL 125 MG/2.5ML SOLN PO SCH ×3 (00:55→12:33)
[2017-09-08] MEDS: TRAMADOL HCL 50 MG TAB PO PRN ×2 (02:03→08:45)
[2017-09-08 06:42] LABS: CALCIUM 8.6 mg/dl (8.5-10.1); CREATININE 0.7 mg/dl (0.60-1.20)
[2017-09-08 07:19] VITALS: BP 130/79; PULSE 66; TEMP 36.8; O2SAT 99
[2017-09-08] MEDS: INSULIN ASPART 100 UNITS/ML 3 ML PEN SC SCH ×2 (08:46→12:34)
[2017-09-08] MEDS: LACTOBACILLUS ACIDOPHILUS (FLORANEX) TAB PO SCH ×2 (08:48→12:33)
[2017-09-08] MEDS: PROPRANOLOL HCL 20 MG TAB PO SCH ×2 (08:48→12:34)
[2017-09-08] MEDS: DULOXETINE HCL 60 MG CAP PO SCH (08:48)
[2017-09-08] MEDS: CLOPIDOGREL BISULFATE 75 MG TAB PO SCH (08:49)
[2017-09-08] MEDS: AMLODIPINE BESYLATE 5 MG TAB PO SCH (08:49)
[2017-09-08] MEDS: MULTIVITAMIN TAB PO SCH (08:49)
[2017-09-08] MEDS: LOSARTAN POTASSIUM 50 MG TAB PO SCH (08:49)
[2017-09-08] MEDS: INSULIN GLARGINE SOLOSTAR 100 UNITS/ML 3 ML PEN SC SCH (08:50)
[2017-09-08] MEDS: PANTOprazole SOD 40 MG TAB PO SCH (08:54)
--- NOTE | 2017-09-08 10:06 | Progress Note ---
Subjective Date of Service: Sep 08, 2017. Subjective Pt evaluation today including: conversation w/ patient, physical exam, lab review, review of studies, review of inpatient medication list Saw/examined the patient in room 405 Had about four episodes of diarrhea this morning one episode of vomiting with breakfast states that mornings are usually worse; she does okay with lunch and dinner; as she did well with dinner last evening. She has noticed that the diarrhea is slowing. Problem List Medical Problems: (1) Ambulatory dysfunction Status: Acute (2) Anemia Status: Acute (3) Chronic left shoulder pain Status: Acute (4) Chronic low back pain Status: Acute (5) Confusion Status: Acute (6) Dehydration Status: Acute (7) Dehydration Status: Acute (8) Diarrhea Status: Acute (9) Dizziness Status: Acute (10) Dizziness Status: Acute (11) Dizziness, nonspecific Status: Acute (12) Epigastric abdominal pain Status: Acute (13) Headache Status: Acute (14) Hypertensive urgency Status: Acute (15) Hypokalemia Status: Acute (16) Hypokalemia Status: Acute (17) Nausea Status: Acute (18) Nausea & vomiting Status: Acute (19) Near syncope Status: Acute (20) Neck mass Status: Acute (21) Neuropathy Status: Acute (22) Obesity Status: Acute (23) Pneumonia involving left lung Status: Acute (24) Polypharmacy Status: Acute (25) Radiating chest pain Status: Acute (26) SIRS (systemic inflammatory response syndrome) Status: Acute (27) Slurred speech Status: Acute (28) Tachycardia Status: Acute (29) TIA (transient ischemic attack) Status: Acute (30) Viral syndrome Status: Acute Review of Systems Constitutional: No fever, No chills Respiratory: No shortness of breath Cardiac: No chest pain Abdomen: + pain, + nausea, + vomiting, + diarrhea, No constipation, No GI bleeding Medications Current Inpatient Medications Medications (Trade) Dose Ordered Sig/Valente Route Start Time Stop Time Status Last Admin Dose Admin Amlodipine Besylate (Norvasc Tab) 5 mg DAILY PO 09/02/17 08:00 10/02/17 08:59 09/08/17 08:49 5 MG Clopidogrel Bisulfate (plAVix TAB) 75 mg QAM PO 09/02/17 08:00 10/02/17 08:59 09/08/17 08:49 75 MG Duloxetine HCl (Cymbalta Cap) 60 mg DAILY PO 09/02/17 08:00 10/02/17 08:59 09/08/17 08:48 60 MG Hydroxyzine HCl (Vistaril Tab) 25 mg BID PRN PO 09/01/17 23:00 10/01/17 22:59 09/02/17 19:56 25 MG Mirtazapine (Remeron Tab) 15 mg HS PO 09/02/17 21:00 10/02/17 20:59 09/07/17 19:49 15 MG Multivitamins (Multivitamin Tab) 1 tab DAILY PO 09/02/17 08:00 10/02/17 08:59 09/08/17 08:49 1 TAB Propranolol HCl (Inderal Tab) 20 mg TID PO 09/02/17 08:00 10/02/17 08:59 09/08/17 08:48 20 MG Tramadol HCl (Ultram Tab) not relieved by tylenol @ Q6H PRN PO 09/01/17 23:00 10/01/17 22:59 09/08/17 08:45 50 MG Prochlorperazine Edisylate 5 mg/ Syringe 5 ml @ 5 mls/min Q6H PRN IV 09/01/17 23:00 10/01/17 22:59 09/06/17 10:43 5 MLS/MIN Lactobacillus Acidophilus (Floranex Tab) 4 tab QIDM PO 09/02/17 08:00 10/02/17 07:59 09/08/17 08:48 4 TAB Acetaminophen (Tylenol Tab) 650 mg Q4H PRN PO 09/01/17 23:15 10/01/17 23:14 Insulin Aspart (novoLOG ASPART) SLIDING SCALE If C... ACHS SC 09/02/17 06:30 10/02/17 06:59 Glucose (Glucose 40% Gel) 15-30 GRAMS 15 GRAMS... UD PRN PO 09/01/17 23:15 10/01/17 23:14 Glucose (Glucose Chew Tab) 4-8 Tablets 4 Tabl... UD PRN PO 09/01/17 23:15 10/01/17 23:14 Dextrose (Dextrose 50% 50ML Syringe) 25-50ML OF 50% DW IV FOR... UD PRN IV 09/01/17 23:15 10/01/17 23:14 Glucagon (Glucagon Inj) 1 mg UD PRN SQ 09/01/17 23:15 10/01/17 23:14 Miscellaneous Information (Order Awaiting Action) 1 ea QS N/A 09/02/17 08:00 10/02/17 07:59 Albuterol/ Ipratropium (Duoneb) 3 ml Q2H PRN INH 09/01/17 23:15 10/01/17 23:14 Insulin Glargine (Lantus Solostar Pen) 5 units DAILY SC 09/03/17 08:00 10/03/17 07:59 Pantoprazole Sodium (Protonix Tab) 40 mg DAILY PO 09/03/17 08:00 10/03/17 07:59 09/08/17 08:54 40 MG Trazodone HCl (Desyrel Tab) 50 mg HSZ PO 09/02/17 22:00 10/02/17 21:59 09/07/17 19:51 50 MG Losartan Potassium (coZAAR TAB) 50 mg DAILY PO 09/05/17 08:00 10/05/17 07:59 09/08/17 08:49 50 MG Vancomycin HCl (Vancomycin Oral Soln) 125 mg Q6 PO 09/05/17 09:15 09/19/17 09:14 09/08/17 06:36 125 MG Raspberry (Raspberry Syrup 5ml Cup) 5 ml Q6 PO 09/05/17 09:15 09/19/17 09:14 09/08/17 06:36 5 ML Ondansetron HCl (Zofran Tab) 4 mg Q4H PRN PO 09/07/17 19:30 10/07/17 19:29 09/08/17 08:45 4 MG Objective Vital Signs Date Time Temp Pulse Resp B/P (MAP) Pulse Ox O2 Delivery O2 Flow Rate FiO2 09/08/17 07:19 36.8 66 18 130/79 (96) 99 Room Air 09/08/17 00:00 Room Air 09/07/17 23:25 36.9 90 18 130/83 (99) 94 Room Air 09/07/17 20:00 Room Air 09/07/17 16:30 95 Room Air 09/07/17 15:50 36.9 71 18 136/83 (100) 95 Room Air 09/07/17 13:32 37.0 78 16 95 Room Air 09/07/17 13:13 78 146/85 (105) Physical Exam General Appearance: no apparent distress, + obese Respiratory/Chest: lungs clear, normal breath sounds, no respiratory distress, no accessory muscle use Cardiovascular: regular rate, rhythm, no edema, no murmur Abdomen: normal bowel sounds, non tender, soft Laboratory Results Last 24 Hours Test 09/07/17 11:23 09/07/17 16:32 09/07/17 20:12 09/08/17 05:14 Bedside Glucose 118 mg/dl 197 mg/dl 162 mg/dl Sodium Level 138 mmol/L Potassium Level 4.0 mmol/L Chloride Level 103 mmol/L Carbon Dioxide Level 26 mmol/L Anion Gap 9.0 mmol/L Blood Urea Nitrogen 7 mg/dl Creatinine 0.70 mg/dl Est Creatinine Clear Calc Drug Dose 81.6 ml/min Estimated GFR () 103.2 Estimated GFR (Non- 89.0 BUN/Creatinine Ratio 10.2 Random Glucose 137 mg/dl Calcium Level 8.6 mg/dl Test 09/08/17 07:25 Bedside Glucose 129 mg/dl Assessment and Plan This is a 67 year old female with a PMH of HTN, hx. of subdural hematoma, hx. of TIA, hx. of PSVT, depression/anxiety, s/p bariatric surgery - presents with weakness, lightheadedness, cough/congestion C. Diff Infection 09/08 * as per patient, the diarrhea is slowing * nausea/vomiting this AM with breakfast * did well with lunch and dinner the past few days * will d/c home today with oral Vanco and oral Zofran 09/07 * patient continues to have 7-10 episodes of diarrhea daily * she will be on oral Vanco as outpatient * wants to make sure diarrhea is slowing prior to discharge * I explained that this can take a long time to resolve; they would be okay with discharge on 09/08 09/06 * continue oral Vancomycin for a total of 2 weeks * diarrhea persistent, will likely d/c home in AM (09/07) if diarrhea slows 09/05 * patient is positive for C. diff * last episode was 3-4 years prior * will start oral Vancomycin, will need 125mg QID for 14 days * once diarrhea slowing, can d/c home Community Acquired Pneumonia 09/04 * will d/c all antibiotics * due to diarrhea, will check a c. diff - possibly a side effect to antibiotic use 09/03 * patient improving; one more day of Rocephin and Doxy - can likely d/c on just doxycycline to total out 5 days 09/02 * unsure if this is actually pneumonia due to CXR showing nodular opacities, which could likely represent previous known pulmonary nodules * either way, patient does have some symptoms, including lightheadedness, cough/ congestion * will do 3-5 days of abx. - currently on Rocephin + Doxy * lactic acid was elevated - though patient telling me that she has had trouble with this since her gastric bypass surgery - now resolved Acute Kidney Injury Dehydration Hypokalemia 09/03 * resolved with IVFs 09/02 * question of diarrhea, which patient is now denying * potassium initially low, now repleted * creatinine initially elevated but no back to baseline * will decrease fluid rate and will d/c fluids later today (09/02) Chest Pain * this does not seem like ACS, and more likely related to anxiety * cardiac enzymes negative x2, EKG with no ST/T wave changes * stress test about one year prior in 2017 - negative Depression/Anxiety * continue current medications * can use Ativan PRN, which has helped with her chest pain DVT ppx * SCDs FULL CODE
[2017-09-08] MEDS ORDERED: VANC5CAP PO (10:10)
[2017-09-08] MEDS ORDERED: ONDA4TAB9 PO (10:10)
[2017-09-08] MEDS ORDERED: DSY50 PO (10:10)
--- NOTE | 2017-09-08 10:12 | Discharge Instructions ---
Discharge Instructions Date of Service Sep 04, 2017. Admission Reason for Admission: ARF Discharge Discharge Diagnosis / Problem: dehydration, c. diff diarrhea Discharge Goals Goal(s): Decrease discomfort, Improve function, Diagnostic testing, Therapeutic intervention Activity Recommendations Activity Limitations: resume your previous activity . Instructions / Follow-Up Instructions / Follow-Up Please follow-up with Dr. Logan (who is covering for Dr. Mckeon) on September 10 at 10:45AM * You will be on oral vancomycin (antibiotic) for C. Diff Infection - take this four times daily for the next 11 days * You will be prescribed Zofran for nausea * Primary care should recheck blood pressure and pulse - you are on four medications that could bring down your blood pressure Current Hospital Diet Patient's current hospital diet: Diabetes Type 2 Diet Discharge Diet Recommended Diet: Diabetes Type 2 Diet Pending Studies Studies pending at discharge: no Laboratory Results Hemoglobin A1c Test 09/01/17 19:20 Range/Units Estimated Average Glucose 128 mg/dl Hemoglobin A1c 6.1 H 4.5-5.6 % Medical Emergencies . Who to Call and When: Medical Emergencies: If at any time you feel your situation is an emergency, please call 911 immediately. . Non-Emergent Contact Non-Emergency issues call your: Primary Care Provider . . "Provider Documentation" section prepared by Deon Chopra. .
--- NOTE | 2017-09-08 10:14 | Discharge Summary ---
Discharge Summary Date of Service Sep 08, 2017. Discharge Summary Admission Date: Sep 01, 2017 at 23:00 Discharge Date: Sep 08, 2017 Discharge Disposition: Home Principal Diagnosis: C. Diff Infection Acute Kidney Injury Dehydration Medication Reconciliation New Medications: Vancomycin Hcl (Vancomycin) 125 Mg Cap 125 MG PO Q6 for 11 Days, #44 CAP Trazodone HCl (Trazodone HCl) 50 Mg Tab 50 MG PO HSZ for 5 Days, #5 TAB Continued Medications: Albuterol Hfa (Ventolin Hfa) 200 Puffs/75670 Mcg Aers 2 PUFFS INH Q6H PRN for Wheezing Amlodipine Besylate (Amlodipine Besylate) 5 Mg Tab 5 MG PO DAILY Clopidogrel Bisulfate (Clopidogrel) 75 Mg Tab 75 MG PO QAM Cyclosporine (Ophth) (Restasis) 0.05 % Emu 1 DROP OPB BID Duloxetine HCl (Duloxetine HCl) 60 Mg Cap 60 MG PO DAILY Fluticasone Propionate (Nasal) (Flonase Allergy Relief) 50 Mcg/Act Spr 2 SPRAYS SALOMÓN DAILY PRN for Allergy Symptoms Hydroxyzine HCl (Hydroxyzine HCl) 25 Mg Tab 25 MG PO BID PRN for Anxiety Losartan Potassium (Cozaar) 100 Mg Tab 50 MG PO DAILY Metoprolol Succinate (Metoprolol Succinate ER) 25 Mg Tabcr 25 MG PO QAM Mirtazapine (Remeron) 15 Mg Tab 15 MG PO HS Multivitamin (Multivitamin) Tab 1 TAB PO DAILY Ondansetron (Ondansetron HCl) 4 Mg Tab 4 MG PO Q8 PRN for Nausea for 10 Days, #30 TABS (This prescription has been renewed) Pantoprazole (Protonix) 40 Mg Tab 40 MG PO DAILY, TAB Propranolol (Inderal) 20 Mg Tab 20 MG PO TID Tramadol HCl (Tramadol HCl) 50 Mg Tab 50 MG PO Q6H PRN for Pain Admission Information HPI (per Admitting provider): DATE OF ADMISSION: 09/01/2017 PRIMARY CARE DOCTOR: Dr. Mckeon. CHIEF COMPLAINT: Dizziness, shortness of breath, weakness. HISTORY OF PRESENT ILLNESS: History obtained from patient and records. Medical history significant for hypertension, fibromyalgia, history of recurrent C. difficile, hx of mini stroke, history of traumatic subdural hematoma, history of bariatric surgery, PSVT as per records, history of chronic pulmonary nodules as per records, asthma as per records, diet controlled DM2. Recent confinement last January 2017 for dysuria symptoms, UTI. Few days history of cough symptoms started with nasal congestion later productive of yellow-green sputum, increasing shortness of breath on exertion. No chest pain, dizziness described as lightheadedness. Patient seen at [facility] yesterday. Lactic acid was noted to be 3.9. Diagnosis was dehydration. Discharged home after IV fluids. Patient directed by PCP to Emergency Room for worsening symptoms. MEDICAL HISTORY: As above. Recent antibiotic possible UTI a few months ago. SURGERIES: Appendectomy, knee surgery, hip surgery, knee replacement, carpal tunnel, gastric bypass, cholecystectomy, shoulder surgery. HOME MEDICATIONS: Hydroxyzine, Cozaar, Remeron, metoprolol, propranolol, Zofran, Inderal, Protonix, amlodipine, Ventolin, Restasis, clopidogrel, duloxetine, Flonase. ALLERGIES: MORPHINE, GABAPENTIN, ATORVASTATIN, CI PIGMENT BLUE, STATIN, DULOXETINE, NSAIDS. FAMILY HISTORY: IBD, stroke, diabetes. PERSONAL AND SOCIAL HISTORY: Nonsmoker, no chronic intake of alcoholic beverages. 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 REVIEW OF SYSTEMS: As per HPI, all 10 systems reviewed. All other ROS negative. PHYSICAL EXAMINATION: VITAL SIGNS: Blood pressure was noted to be 103/58, pulse rate 95, RR 20, temperature 37, sats 98 on room air. Orthostatic vitals were abnormal GENERAL: Anxious, no respiratory distress. Obese. SKIN: Normal color, warm. HEENT: Pale palpebral conjunctiva. No ptosis. Dry mucosa. NECK: Supple, short, nontender. LUNGS: Decreased breath sounds. No wheeze. ABDOMEN: Some distention, nontender. Healed scars. EXTREMITIES: No edema. No gross deformities . No tenderness. NEUROLOGIC: Coherent. No gross focality. LABORATORY DATA: Hemoglobin was noted to be 12.94, hematocrit 35.8, white cell count 8.06, platelets 395. Sodium noted to be 137, potassium 3.8, chloride 104, CO2 22, BUN 28, creatinine 1.55, glucose noted to be 155. Chest x-ray, 2.2 cm nodule, left mid lung opacity, possible pneumonia post-treatment radiographs to ensure resolution recommended for possible pulmonary nodule. EKG as per my interpretation rate 80, NSR, LVH, Q-wave flattening in the inferior leads, PVCs, diffuse T-wave flattening. ASSESSMENT: 1. Acute renal failure, hypokalemia, clinical dehydration secondary to community-acquired pneumonia no sepsis. 2. Recurrent diarrhea, rule out Clostridium difficile. 3. Hypertension, patient orthostatic. 4. Diet controlled DM2, patient off meds since gastric bypass. 5. History of traumatic subdural hematoma. 6. History of fibromyalgia as per records PLAN: GMF monitor creatinine response to IV fluids Hold ARB until creatinine at baseline. Ceftriaxone, Doxycycline. ISS BG goal 140-180. Patient due for hemoglobin A1c check. DVT prophylaxis, SCDs RE recent history of traumatic subdural hematoma. Hospital Course This is a 67 year old female with a PMH of HTN, hx. of subdural hematoma, hx. of TIA, hx. of PSVT, depression/anxiety, s/p bariatric surgery - presents with weakness, lightheadedness, cough/congestion C. Diff Infection 09/08 * as per patient, the diarrhea is slowing * nausea/vomiting this AM with breakfast * did well with lunch and dinner the past few days * will d/c home today with oral Vanco and oral Zofran 09/07 * patient continues to have 7-10 episodes of diarrhea daily * she will be on oral Vanco as outpatient * wants to make sure diarrhea is slowing prior to discharge * I explained that this can take a long time to resolve; they would be okay with discharge on 09/08 09/06 * continue oral Vancomycin for a total of 2 weeks * diarrhea persistent, will likely d/c home in AM (09/07) if diarrhea slows 09/05 * patient is positive for C. diff * last episode was 3-4 years prior * will start oral Vancomycin, will need 125mg QID for 14 days * once diarrhea slowing, can d/c home Community Acquired Pneumonia 09/04 * will d/c all antibiotics * due to diarrhea, will check a c. diff - possibly a side effect to antibiotic use 09/03 * patient improving; one more day of Rocephin and Doxy - can likely d/c on just doxycycline to total out 5 days 09/02 * unsure if this is actually pneumonia due to CXR showing nodular opacities, which could likely represent previous known pulmonary nodules * either way, patient does have some symptoms, including lightheadedness, cough/ congestion * will do 3-5 days of abx. - currently on Rocephin + Doxy * lactic acid was elevated - though patient telling me that she has had trouble with this since her gastric bypass surgery - now resolved Acute Kidney Injury Dehydration Hypokalemia 09/03 * resolved with IVFs 09/02 * question of diarrhea, which patient is now denying * potassium initially low, now repleted * creatinine initially elevated but no back to baseline * will decrease fluid rate and will d/c fluids later today (09/02) Chest Pain * this does not seem like ACS, and more likely related to anxiety * cardiac enzymes negative x2, EKG with no ST/T wave changes * stress test about one year prior in 2017 - negative Depression/Anxiety * continue current medications * can use Ativan PRN, which has helped with her chest pain DVT ppx * SCDs FULL CODE Total time spent on discharge = 35 minutes This includes examination of the patient, discharge planning, medication reconciliation, and communication with other providers. Discharge Instructions Please follow-up with Dr. Logan (who is covering for Dr. Mckeon) on September 10 at 10:45AM * You will be on oral vancomycin (antibiotic) for C. Diff Infection - take this four times daily for the next 11 days * You will be prescribed Zofran for nausea * Primary care should recheck blood pressure and pulse - you are on four medications that could bring down your blood pressure
[2017-09-08 12:23] VITALS: BP 130/79; PULSE 66; TEMP 36.8; O2SAT 99
[2017-09-09] MEDS ORDERED: VANC1SUS PO (14:44)
[2017-09-09] MEDS ORDERED: ONDA4TAB46 PO (15:38)
[2017-09-09] MEDS ORDERED: TRAZ50TA35 PO (15:38)
== END 2017-09-08 13:17 | disposition home or self-care (01) | DRG 371 ==
LOC: C.EDB 16:38 → C.4E 23:00 → UNDOADMIN 23:00 → ENRESERV 23:11
PROVIDERS: ADMIT Family Medicine; ATTEND Family Medicine
DX: A04.71 Enterocolitis due to Clostridium difficile, recurrent (principal); J18.9 Pneumonia, unspecified organism; N17.9 Acute kidney failure, unspecified; E86.0 Dehydration; R55 Syncope and collapse; E87.6 Hypokalemia; I10 Essential (primary) hypertension; J45.909 Unspecified asthma, uncomplicated; E11.9 Type 2 diabetes mellitus without complications; E78.5 Hyperlipidemia, unspecified; K21.9 Gastro-esophageal reflux disease without esophagitis; M79.7 Fibromyalgia; F32.9 Major depressive disorder, single episode, unspecified; F41.9 Anxiety disorder, unspecified; E66.01 Morbid (severe) obesity due to excess calories; Z79.899 Other long term (current) drug therapy; Z79.02 Long term (current) use of antithrombotics/antiplatelets; Z68.34 Body mass index [BMI] 34.0-34.9, adult; Z87.440 Personal history of urinary (tract) infections; Z86.73 Personal history of transient ischemic attack (TIA), and cerebral infarction without residual deficits; Z98.84 Bariatric surgery status; Z87.820 Personal history of traumatic brain injury; Z88.8 Allergy status to other drugs, medicaments and biological substances; Z88.5 Allergy status to narcotic agent; Z88.6 Allergy status to analgesic agent; Z91.048 Other nonmedicinal substance allergy status; Z83.3 Family history of diabetes mellitus; Z82.49 Family history of ischemic heart disease and other diseases of the circulatory system; Z82.3 Family history of stroke; Z83.79 Family history of other diseases of the digestive system

== ENCOUNTER 2017-09-09 13:56 | Observation (INO) | payer BC, OTHER ==
[~2017-09-09] VITALS: Ht 160 cm; Wt 89.4 kg
[~2017-09-09 13:56] MED LIST changes: -ALBUAER INH; +ATR25 PO; -ATV/1 PO; +CYCL0.052 OPB; +CYM60 PO; +DSY50 PO; +FLUT0.15 NAE; +MIRT15TA3 PO; +MULT-506 PO; +NRV/5 PO; +ONDA4TAB9 PO; +PANT40TA PO; -PRMVC PV; +PROP20TA67 PO; +ULT50 PO; +VANC5CAP PO; +VNTHFA/IN INH
[2017-09-09] MEDS ORDERED: LOSARTAN POTASSIUM 50 MG TAB PO STA (14:22)
[2017-09-09] MEDS ORDERED: METOPROLOL SUCC 25MG EXT REL TAB PO STA (14:22)
[2017-09-09] MEDS ORDERED: AMLODIPINE BESYLATE 5 MG TAB PO ONE (14:30)
[2017-09-09] MEDS ORDERED: VANC1SUS PO (14:44)
--- NOTE | 2017-09-09 14:54 | EMERGENCY ROOM VISIT NOTE ---
History Report prepared by Tano: Anders Lewis Under the Supervision of: Dr. Jarod Malhotra M.D. First contact with patient: 14:05 Chief Complaint: OTHER COMPLAINT Stated Complaint: C DIFF, SOB, ALLERGIC REACTION, CHEST PAIN, WEAK History of Present Illness The patient is a 67 year old female who presents to the Emergency Room with complaints of constant tingling and swelling in her lips, tongue, arms, hands, legs, and feet starting 0900 this morning, though she states that the swelling has gotten better. She additionally notes that she has been having shortness of breath, dizziness, and chest pain. The patient states that she has been having diarrhea, though she was just discharged from the hospital after having C Diff and pneumonia. She reports that she went to [facility] this am, and she states that they told her to stop taking her oral vancomycin tablets and start Flagyl, though she states that she was uncomfortable with this treatment, so she came to the ED for evaluation. She took 2 Benadryl PO this morning at 0900, and she was given Solu-Medrol in the ED around 1030, and she states that her lactic acid, potassium, ECG and CXR were normal this morning at [facility]. She called her PCP this morning after leaving [facility], and they told her to come to the [facility] ED. She notes that she has been taking Losartan and Norvasc for the past couple of years, though she has not taken them this morning or last night. Last night she took the vancomycin at 1800 and midnight. The patient states that she has a history of neuropathy in her legs. Per review of the EMR, the patient was discharged yesterday from the hospital. She was in the hospital for C Diff, dehydration, and acute renal failure. She was discharged on the oral vancomycin for her C Diff. Source of History: patient Onset: 0900 this morning Position: lip, tongue, hand (bilateral), leg (bilateral), foot (bilateral) Quality: tingling, other (swelling) Timing: constant Associated Symptoms: + chest pain, + SOB, + diarrhea Note: Associated symptoms: Dizziness Review of Systems See HPI for pertinent positives & negatives. A total of 10 systems reviewed and were otherwise negative. Past Medical & Surgical Medical Problems: (1) Allergic reaction (2) Allergic reaction to drug (3) Anxiety (4) ARF (acute renal failure) (5) Asthma (6) C. difficile diarrhea (7) DM2 (diabetes mellitus, type 2) (8) GERD (gastroesophageal reflux disease) (9) Hyperlipidemia (10) Hypertension (11) Morbid obesity (12) Pseudomonas urinary tract infection (13) Recurrent UTI (urinary tract infection) (14) Sacral back pain (15) Shoulder pain (16) UTI (urinary tract infection) Surgical Problems: (1) H/O gastric bypass (2) H/O hernia repair (3) H/O spinal fusion (4) History of carpal tunnel surgery (5) Previous section (6) S/P appendectomy (7) S/P cholecystectomy (8) S/p left shoulder surgery (9) S/P parathyroidectomy (10) S/P tonsillectomy and adenoidectomy (11) Total knee replacement status Family History Diabetes mellitus Gallbladder disease Heart disease Hypertension Social History Smoking Status: Unknown if Ever Smoked Alcohol Use: none Drug Use: none Marital Status: Housing Status: lives with significant other Occupation Status: retired Current/Historical Medications Scheduled Amlodipine Besylate (Amlodipine Besylate), 5 MG PO DAILY Clopidogrel Bisulfate (Clopidogrel), 75 MG PO QAM Cyclosporine (Ophth) (Restasis), 1 DROP OPB BID Duloxetine HCl (Duloxetine HCl), 60 MG PO DAILY Losartan Potassium (Cozaar), 50 MG PO DAILY Metoprolol Succinate (Metoprolol Succinate ER), 25 MG PO QAM Mirtazapine (Remeron), 15 MG PO HS Multivitamin (Multivitamin), 1 TAB PO DAILY Pantoprazole (Protonix), 40 MG PO DAILY Propranolol (Inderal), 20 MG PO TID Trazodone Hcl (Trazodone), 50 MG PO HSZ Vancomycin HCl (Vancomycin HCl + Syrspend), 125 MG PO Q6 Scheduled PRN Albuterol Hfa (Ventolin Hfa), 2 PUFFS INH Q6H PRN for Wheezing Fluticasone Propionate (Nasal) (Flonase Allergy Relief), 2 SPRAYS SALOMÓN DAILY PRN for Allergy Symptoms Hydroxyzine HCl (Hydroxyzine HCl), 25 MG PO BID PRN for Anxiety Ondansetron Hcl (Zofran), 4 MG PO Q8 PRN for Nausea Tramadol HCl (Tramadol HCl), 50 MG PO Q6H PRN for Pain Allergies Coded Allergies: Atorvastatin (Verified Allergy, Unknown, myalgias per PCP note , 09/09/17) Losartan (Verified Allergy, Unknown, HIVES, 09/09/17) ANIGIOEDEMA /TONGUE AND LIP SWELLING Rosuvastatin (Unverified Allergy, Unknown, MUSCLE ACHES, 09/09/17) CI Pigment Blue 63 (Verified Adverse Reaction, Mild, PSYCHOSIS, 09/09/17) Duloxetine (Verified Adverse Reaction, Mild, PSYCHOSIS, 09/09/17) Gabapentin (Verified Adverse Reaction, Mild, PSYCHOSIS, 09/09/17) Morphine (Verified Adverse Reaction, Mild, NAUSEA, 09/09/17) NSAIDs (Verified Adverse Reaction, Unknown, s/p bariatric surgery, 09/09/17 ) per gmg Physical Exam Vital Signs Date Time Temp Pulse Resp B/P (MAP) Pulse Ox O2 Delivery O2 Flow Rate FiO2 09/09/17 16:53 97 Room Air 09/09/17 15:23 85 16 134/85 97 Room Air 09/09/17 14:39 102 18 133/105 97 Room Air 09/09/17 14:15 112 09/09/17 13:59 37.2 104 20 164/104 97 Room Air Physical Exam GENERAL: Patient is in no acute distress. HEENT: No uvular edema. Some edema to the tongue and some subtle edema to both lips. No acute trauma, normocephalic atraumatic, mucous membranes moist, no nasal congestion, no scleral icterus. NECK: No stridor, no adenopathy, no meningismus, trachea is midline. LUNGS: Clear to auscultation bilaterally, no wheeze, no rhonchi, breath sounds equal. HEART: 2/6 systolic murmur. Regular rate and rhythm. ABDOMEN: Soft, nontender, bowel sounds positive, no hernias, no peritonitis. EXTREMITIES: Mild bilateral pedal edema. No cyanosis, full range of motion of all the joints without pain or difficulty, no signs for acute trauma. NEUROLOGIC: Oriented x 3, no acute motor or sensory deficits, no focal weakness. SKIN: No rash, no jaundice, no diaphoresis. No hives. Medical Decision & Procedures Medications Administered Medications (Trade) Dose Ordered Sig/Valente Route Start Time Stop Time Status Last Admin Dose Admin Amlodipine Besylate (Norvasc Tab) 5 mg NOW ONCE PO 09/09/17 14:30 09/09/17 14:31 DC 09/09/17 14:33 5 MG Losartan Potassium (coZAAR TAB) 50 mg NOW STAT PO 09/09/17 14:22 09/09/17 14:26 DC 09/09/17 14:38 50 MG Diphenhydramine HCl (Benadryl Cap) 50 mg NOW ONCE PO 09/09/17 14:30 09/09/17 14:31 DC 09/09/17 14:33 50 MG Metoprolol Succinate (Toprol Xl Tab) 25 mg NOW STAT PO 09/09/17 14:22 09/09/17 14:27 DC 09/09/17 14:39 25 MG ED Course 1405: The patient was evaluated in room C3. A complete history and physical exam was performed. 1422: Metoprolol Succinate 25mg PO, Losartan Potassium 50mg PO 1428: I discussed the patient's case with [facility]. She wants to make sure that the patient keeps getting liquid vancomycin. She is going to try to come see the patient. 1430: Benadryl 50mg PO, Norvasc 5mg PO 1627: Discussed the patient's case with Dr. Bandar Camarena. She is going to observe the patient overnight to see if she does okay with her medications The patient will be evaluated for further management. 1636: I reevaluated the patient, and I discussed the treatment plan. She was agreeable. She will be evaluated for further management. Medical Decision Differential diagnoses include: allergic reaction, angioedema, electrolyte imbalance, medication reaction, cardiac ischemia, pneumonia, and dysrhythmia The patient presents with lip and tongue swelling. She was told earlier today at an outside hospital that the swelling may be from tablets of oral vancomycin. The patient had been taking vancomycin solution while in the hospital, but when discharged, she was switched over to the tablets. She states this is really the only thing new for her. The patient had not taken her other normal morning meds. She received oral Norvasc, oral Cozaar, oral metoprolol. She was given a dose of oral Benadryl as her tongue was still swollen and she was due for another dose. Patient is not in respiratory distress. There is no uvular edema. There is no wheezing. I cannot tell for certain that her reaction was from the oral vancomycin tablets, she takes an ARB and possibly this has caused the swelling although, she did not take her ARB this morning. She woke up with the swelling. Patient was seen by the [place] hospitalist service and the decision has been made for her to stay in the hospital overnight. Presently, the patient is stable. Her vital signs have improved since she received her normal morning meds. Case management has been involved. Medication Reconcilliation Current Medication List: was personally reviewed by me Blood Pressure Screening Patient's blood pressure: Elevated blood pressure Monitored by the hospitalist. Consults Time Called: 1410, 1612 Consulting Physician: Dr. Bandar Camarena Returned Call: 1428, 1627 I discussed the patient's case with Dr. Bandar Camarena. She wants to make sure that the patient keeps getting liquid vancomycin. She is going to try to come see the patient. Discussed the patient's case with Dr. Bandar Camarena. She is going to observe the patient overnight to see if she does okay with her medications The patient will be evaluated for further management. Impression Primary Impression: Angioedema Additional Impression: C. difficile colitis Scribe Attestation The scribe's documentation has been prepared under my direction and personally reviewed by me in its entirety. I confirm that the note above accurately reflects all work, treatment, procedures, and medical decision making performed by me. Departure Information Dispostion Being Evaluated By Hospitalist Prescriptions Vancomycin HCl (Vancomycin HCl + Syrspend) 50 Mg/Ml Sarah 125 MG PO Q6 for 12 Days, #6000 MG Prov: Jarod Malhotra M.D. 09/09/17 Referrals Conrad Mckeon D.O. (PCP) Patient Instructions My [facility] Problem Qualifiers
[2017-09-09] MEDS ORDERED: TRAZ50TA35 PO (15:38)
[2017-09-09] MEDS ORDERED: ONDA4TAB46 PO (15:38)
[2017-09-09] MEDS ORDERED: ONDANSETRON 4 MG TAB PO PRN (16:45)
[2017-09-09] MEDS ORDERED: ALUMINUM/MAGNESIUM/SIMETH (MAALOX MAX) 30 ML UDC PO PRN (16:45)
[2017-09-09] MEDS ORDERED: MAGNESIUM HYDROXIDE SUSP 30 ML UDC PO PRN (16:45)
[2017-09-09] MEDS ORDERED: hydrOXYzine HCL 25 MG TAB PO PRN (16:45)
[2017-09-09] MEDS ORDERED: ALBUTEROL HFA 8 GM INHALER INH PRN (16:45)
[2017-09-09] MEDS ORDERED: ONDANSETRON INJ 2 MG/ML 2 ML VIAL IV PRN (16:45)
[2017-09-09] MEDS ORDERED: ACETAMINOPHEN 325 MG TAB PO PRN (16:45)
[2017-09-09] MEDS ORDERED: FLUTICASONE PROPIONATE NA SPR 16 GM BTL NAE PRN (16:45)
--- NOTE | 2017-09-09 16:45 | History and Physical ---
History & Physical Date & Time of Service: Sep 09, 2017 at 16:45 Chief Complaint: C Diff, Sob, Allergic Reaction, Chest Pain, Weak Primary Care Physician: Conrad Mckeon D.O. History of Present Illness Source: patient This is a 67-year-old female with medical history of recurrent C. difficile, high blood pressure, depression was discharged from [facility] yesterday on oral p.o. vancomycin for C. difficile. Patient was receiving p.o. vancomycin solution in hospital, got approximately 4 days dose has not had any complication Picked up oral vancomycin tablet from her pharmacy on discharged. Took 1 tablet yesterday evening , next dose was at midnight Woke up this morning with severe lip swelling, tongue swelling could not close her mouth, could not talk, did not had any breathing issue Also noticed her both hands, and both feet got swollen had tingling and numbness on both lower extremity, developed severe neck pain in the morning unable to turn head- no history of trauma or fall went to [facility] ER, was given steroids Was asked to discontinue p.o. vancomycin and start on oral Flagyl She refused refused further oral Flagyl, as was treated in past for C. difficile With Flagyl, was not effective Patient was worried that she may develop allergic reaction to the tablet vancomycin. Came to [facility] ER, as she was recently treated in the hospital Wants to be on oral vancomycin solution to complete rest part of her treatment days In the ER patient's lip and tongue swelling improved Still had some difficulty To speak In the morning she was not able to swallow food, now has improved Pharmacy was contacted to make arrangements for oral solution of vancomycin Patient was still feeling very Weak and dizzy spell, worried about persistent feeling of tongue swelling, hand and feet swelling Does not feel comfortable going home And to come back to ER tomorrow morning if she symptoms get worse or she is not able to breathe. Past Medical/Surgical History Medical Problems: (1) Allergic reaction (2) Allergic reaction to drug (3) Ambulatory dysfunction (4) Anemia (5) Anxiety (6) ARF (acute renal failure) (7) Asthma (8) C. difficile diarrhea (9) Chronic left shoulder pain (10) Chronic low back pain (11) Confusion (12) Dehydration (13) Dehydration (14) Diarrhea (15) Dizziness (16) Dizziness (17) Dizziness (18) Dizziness, nonspecific (19) DM2 (diabetes mellitus, type 2) (20) Epigastric abdominal pain (21) Generalized weakness (22) GERD (gastroesophageal reflux disease) (23) Headache (24) Hyperlipidemia (25) Hypertension (26) Hypertensive urgency (27) Hypokalemia (28) Hypokalemia (29) Morbid obesity (30) Nausea (31) Nausea & vomiting (32) Near syncope (33) Neck mass (34) Neuropathy (35) Obesity (36) Pneumonia involving left lung (37) Polypharmacy (38) Pseudomonas urinary tract infection (39) Radiating chest pain (40) Recurrent UTI (urinary tract infection) (41) Sacral back pain (42) Shoulder pain (43) SIRS (systemic inflammatory response syndrome) (44) Slurred speech (45) Tachycardia (46) TIA (transient ischemic attack) (47) UTI (urinary tract infection) (48) UTI (urinary tract infection) (49) Viral syndrome (50) Weakness Surgical Problems: (1) H/O gastric bypass (2) H/O hernia repair (3) H/O spinal fusion (4) History of carpal tunnel surgery (5) Previous section (6) S/P appendectomy (7) S/P cholecystectomy (8) S/p left shoulder surgery (9) S/P parathyroidectomy (10) S/P tonsillectomy and adenoidectomy (11) Total knee replacement status Family History Diabetes mellitus Gallbladder disease Heart disease Hypertension Social History Smoking Status: Unknown if Ever Smoked Drug Use: none Marital Status: Housing status: lives with significant other Occupational Status: retired Immunizations History of Influenza Vaccine: Yes Influenza Vaccine Date: Apr 18, 2013 History of Tetanus Vaccine?: Yes History of Pneumococcal: Yes History of Hepatitis B Vaccine: Yes Multi-Drug Resistant Organisms History of MDRO: No Allergies Coded Allergies: Atorvastatin (Verified Allergy, Unknown, myalgias per PCP note , 09/09/17) Losartan (Verified Allergy, Unknown, HIVES, 09/09/17) ANIGIOEDEMA /TONGUE AND LIP SWELLING Rosuvastatin (Unverified Allergy, Unknown, MUSCLE ACHES, 09/09/17) CI Pigment Blue 63 (Verified Adverse Reaction, Mild, PSYCHOSIS, 09/09/17) Duloxetine (Verified Adverse Reaction, Mild, PSYCHOSIS, 09/09/17) Gabapentin (Verified Adverse Reaction, Mild, PSYCHOSIS, 09/09/17) Morphine (Verified Adverse Reaction, Mild, NAUSEA, 09/09/17) NSAIDs (Verified Adverse Reaction, Unknown, s/p bariatric surgery, 09/09/17 ) per gmg Home Medications Scheduled Amlodipine Besylate (Amlodipine Besylate), 5 MG PO DAILY Clopidogrel Bisulfate (Clopidogrel), 75 MG PO QAM Cyclosporine (Ophth) (Restasis), 1 DROP OPB BID Duloxetine HCl (Duloxetine HCl), 60 MG PO DAILY Losartan Potassium (Cozaar), 50 MG PO DAILY Metoprolol Succinate (Metoprolol Succinate ER), 25 MG PO QAM Mirtazapine (Remeron), 15 MG PO HS Multivitamin (Multivitamin), 1 TAB PO DAILY Pantoprazole (Protonix), 40 MG PO DAILY Propranolol (Inderal), 20 MG PO TID Trazodone Hcl (Trazodone), 50 MG PO HSZ Vancomycin HCl (Vancomycin HCl + Syrspend), 125 MG PO Q6 Scheduled PRN Albuterol Hfa (Ventolin Hfa), 2 PUFFS INH Q6H PRN for Wheezing Fluticasone Propionate (Nasal) (Flonase Allergy Relief), 2 SPRAYS SALOMÓN DAILY PRN for Allergy Symptoms Hydroxyzine HCl (Hydroxyzine HCl), 25 MG PO BID PRN for Anxiety Ondansetron Hcl (Zofran), 4 MG PO Q8 PRN for Nausea Tramadol HCl (Tramadol HCl), 50 MG PO Q6H PRN for Pain Review of Systems Constitutional: No fever, No chills, No sweats, No weight loss, No weakness, No fatigue, No problem reported ENT: + trouble swallowing, + problem reported (Tongue and lip swelling, unable to speak) Respiratory: No cough, No sputum, No wheezing, No shortness of breath, No dyspnea on exertion, No dyspnea at rest, No hemoptysis, No problem reported Cardiovascular: No chest pain, No orthopnea, No PND, No edema, No claudication , No palpitations, No problem reported Abdomen: + diarrhea (Has ongoing diarrhea) Musculoskeletal: + swelling (Bilateral hand swelling, lower extremity swelling) , + problem reported (Neck pain started this morning) Neurologic: + weakness, + numbness/tingling Psychiatric: + anxiety, + insomnia Physical Exam Vital Signs Date Time Temp Pulse Resp B/P (MAP) Pulse Ox O2 Delivery O2 Flow Rate FiO2 09/09/17 15:23 85 16 134/85 97 Room Air 09/09/17 14:39 102 18 133/105 97 Room Air 09/09/17 14:15 112 09/09/17 13:59 37.2 104 20 164/104 97 Room Air General Appearance: no apparent distress Head: atraumatic Eyes: sclerae normal ENT: hearing grossly normal, + pertinent finding (Positive for tongue swelling and erythema, patient mentions it is painful to swallow) Neck: supple, + pertinent finding (Point tenderness on the posterior cervical spine area) Respiratory/Chest: lungs clear, normal breath sounds, no respiratory distress Cardiovascular: regular rate, rhythm Abdomen/GI: normal bowel sounds, non tender, soft Extremities/Musculoskelatal: + pertinent finding (Trace bilateral pedal edema, mild swelling of dorsal hands and fingers, no rash or erythema noted) Neurologic/Psych: no motor/sensory deficits, alert, normal reflexes, + pertinent finding (Anxious) Impression Assessment and Plan TONGUE/LIP SWELLING/ANGIOEDEMA/POSSIBLE ALLERGIC REACTION TO DRUG: Clinically swelling much improved since admission New medications include trazodone/p.o. vancomycin Patient was on trazodone for last 4 days while inpatient did not had any allergic reaction Oral solution vancomycin was changed to tablet form on discharge Patient is concerned possible allergic reaction to the oral vancomycin tablet Clinical presentation with sudden onset of angioedema is more related to idiosyncratic allergic reaction to TANYA and ARB Has been on losartan number of days Ordered to hold losartan Vancomycin PO Component change to solution Patient will be continued with prednisone taper, Benadryl as needed Continue to monitor HYPERTENSION: BP stable: Hold Losartan up for possible adverse reaction Patient is continued with amlodipine 5 mg daily Metoprolol dose increased to 25 mg twice daily (was on 25 mg daily) Norvasc does not increase as patient already has bilateral lower extremity edema close follow-up with family physician for adjustment of antihypertensive and blood pressure monitoring Losartan added in the allergy test TYPE 2 DIABETES Diet-controlled Patient been off medication after gastric bypass CODE STATUS: Full code DVT prophylaxis subcu heparin: DISPOSITION: Expected to be discharged home in the next 24 hours If allergic reaction/symptoms is resolved Social service/pharmacy consulted /appreciate help and input from pharmacy In ER Patient will be discharged with oral p.o. vancomycin solution to complete rest of her antibiotic course Medicine follow-up with Dr. Conrad Mckeon Level of Care Med/Surg Resuscitation Status FULL RESUSCITATION VTE Prophylaxis Risk Level: Moderate Given or contraindicated: Unfractionated heparin SQ Additional Copies To Conrad Mckeon, D.O.
[2017-09-09 16:53] VITALS: O2SAT 97; Ht 160 cm; Wt 89.4 kg
[2017-09-09] MEDS ORDERED: POLYETHYLENE (MIRALAX) 17 GM PACK PO PRN (17:30)
[2017-09-09] MEDS ORDERED: METHYLPREDNISOLONE 4MG TAB, 6 DAY TAPER PO SCH (17:45)
[2017-09-09 18:00] VITALS: BP 146/99; PULSE 113; TEMP 36.5; O2SAT 97
[2017-09-09] MEDS: TRAMADOL HCL 50 MG TAB PO PRN (18:17)
[2017-09-09] MEDS ORDERED: IV FLUIDS COMPLETED PRN (18:30)
--- NOTE | 2017-09-09 18:40 | Pharmacy Progress Note ---
ED Pharmacist Progress Note Date of Service: Sep 09, 2017. Patient with angioedema - unknown etiology but could be 2nd losartan. May also be due to excipients in oral form of vancomycin capsules that patient obtained as outpatient. Of note, patient was on vancomycin po recently at our institution - we use the IV form of vancomycin and administer po. Patient also was previously treated years ago with oral vancomycin as an outpatient. Called [facility] outpatient pharmacy , spoke douglas Rodriguez ( pharmacist). Confirmed patient filled a prescription for vancomycin po in 2013 - at that time, they were also using the IV formulation (specific [facility] [place] [id number]) but they now carry a different po solution ("First-vancomycin"). Of note, it is not clear if the oral solution "First-vancomycin" now commercially available would have the same reaction as the oral vancomycin capsules if this reaction is indeed due to excipients. Therefore safer to use the IV form. Called [facility], spoke with Gali (pharmacist). They also have "First-vancomycin" and do not have the IV form. They are not able to have us supply a bottle of the IV form and dispense as an outpatient. Spoke with Priyanka ([facility] pharmacy informatics specialist) - OK'd dispensing our vancomycin po (in which we use the IV form to compound). At this time, Dr. Portillo and Dr. Malhotra decided it would be best to observe the patient overnight. If patient is discharged tomorrow, OK to provide vancomycin po from the inpatient pharmacy stock. Estimated that patient will at that time require an 11 day supply. Dose likely 125 mg po q6h.
[2017-09-09] MEDS: PROPRANOLOL HCL 20 MG TAB PO SCH (19:09)
[2017-09-09] MEDS: METOPROLOL TARTRATE 25 MG TAB PO SCH (19:09)
[2017-09-09] MEDS ORDERED: CYCLOBENZAPRINE HCL 10 MG TAB PO STA (19:20)
[2017-09-09] MEDS ORDERED: CYCLOBENZAPRINE HCL 10 MG TAB PO PRN (19:30)
[2017-09-09] MEDS: RASPBERRY SYRUP 5 ML UDP PO SCH (20:04)
[2017-09-09] MEDS: VANCOMYCIN HCL 125 MG/2.5ML SOLN PO SCH (20:04)
[2017-09-09] MEDS: MIRTAZAPINE TAB 15 MG TAB PO SCH (20:04)
[2017-09-09] MEDS: METHYLPREDNISOLONE 4 MG TAB PO SCH ×3 (20:05→22:12)
--- NOTE | 2017-09-09 20:05 | DIAGNOSTIC IMAGING REPORT ---
CERVICAL SPINE 2 OR 3 VIEWS HISTORY: 67 years-old Female NECK PAIN acute on chronic neck pain COMPARISON: None available TECHNIQUE: 5 views of the cervical spine FINDINGS: The seventh vertebral segment is not well seen on the lateral view secondary to overlying soft tissue. No acute fracture or subluxation identified. Moderate to severe intervertebral disc space narrowing noted at C4-C5, and C6-C7 with moderate intervertebral disc space narrowing at C5-C6. Moderate multilevel facet arthrosis and endplate spurring. No prevertebral soft tissue swelling. Left shoulder arthroplasty. Imaged lung apices appear clear. IMPRESSION: 1. No acute fracture or subluxation. 2. Degenerative changes as above. The above report was generated using voice recognition software. It may contain grammatical, syntax or spelling errors. Electronically signed by: Missael Moore M.D. 09/09/2017 8:03 PM Dictated Date/Time: 09/09/2017 8:01 PM
[2017-09-09] MEDS: HEPARIN SOD 5000 UNIT/0.5 ML CARP SQ SCH (20:43)
[2017-09-09] MEDS: TRAZODONE HCL 50 MG TAB PO SCH (22:12)
[2017-09-09 23:42] VITALS: BP 163/86; PULSE 94; TEMP 36.9; O2SAT 96
[2017-09-10] MEDS: TRAMADOL HCL 50 MG TAB PO PRN ×4 (00:18→22:31)
[2017-09-10] MEDS: VANCOMYCIN HCL 125 MG/2.5ML SOLN PO SCH ×4 (00:18→19:25)
[2017-09-10] MEDS: RASPBERRY SYRUP 5 ML UDP PO SCH ×4 (00:18→19:25)
[2017-09-10] MEDS: METHYLPREDNISOLONE 4 MG TAB PO SCH ×4 (00:19→17:52)
[2017-09-10] MEDS: HEPARIN SOD 5000 UNIT/0.5 ML CARP SQ SCH ×3 (03:38→20:27)
[2017-09-10 06:44] LABS: HEMATOCRIT 32.9 % (37-47); HEMOGLOBIN 10.8 g/dL (12.0-16.0); MEAN CELL VOLUME 92.2 fL (80-100); MEAN CORPUSCULAR HEMOGLOBIN 30.3 pg (25-34); MEAN CORPUSCULAR HGB CONC 32.8 g/dl (32-36); MEAN PLATELET VOLUME 8.3 fL (7.4-10.4); PLATELET COUNT 376 K/uL (130-400); RED CELL DISTRIBUTION WIDTH CV 14.9 % (11.5-14.5); RED CELL DISTRIBUTION WIDTH SD 50.5 fL (36.4-46.3); WHITE BLOOD COUNT 8.42 K/uL (4.8-10.8)
[2017-09-10 07:20] LABS: CALCIUM 9.2 mg/dl (8.5-10.1); CREATININE 0.76 mg/dl (0.60-1.20); POTASSIUM 4.1 mmol/L (3.5-5.1)
[2017-09-10 07:47] VITALS: BP 146/88; PULSE 92; TEMP 37; O2SAT 95
[2017-09-10] MEDS: DULOXETINE HCL 60 MG CAP PO SCH (08:43)
[2017-09-10] MEDS: PANTOprazole SOD 40 MG TAB PO SCH (08:43)
[2017-09-10] MEDS: METOPROLOL TARTRATE 25 MG TAB PO SCH ×2 (08:44→20:34)
[2017-09-10] MEDS: CYCLOBENZAPRINE HCL 10 MG TAB PO SCH ×3 (08:44→20:31)
[2017-09-10] MEDS: PROPRANOLOL HCL 20 MG TAB PO SCH ×3 (08:45→20:32)
[2017-09-10] MEDS: AMLODIPINE BESYLATE 5 MG TAB PO SCH (08:45)
[2017-09-10] MEDS: MULTIVITAMIN TAB PO SCH (08:46)
[2017-09-10] MEDS: CLOPIDOGREL BISULFATE 75 MG TAB PO SCH (08:47)
[2017-09-10] MEDS ORDERED: METOPROLOL SUCC 25MG EXT REL TAB PO SCH (09:00)
[2017-09-10] MEDS ORDERED: CEPHALEXIN MONOHYDRATE 500 MG CAP PO ONE (10:46)
[2017-09-10] MEDS: HYDROmorphone INJ 0.5 MG/0.5 ML SYR IV PRN ×2 (12:05→17:55)
--- NOTE | 2017-09-10 12:31 | Progress Note ---
Internal Med Progress Note Date of Service: Sep 10, 2017. Provider Documentation: SUBJECTIVE: The patient was seen and examined in the medical floor. She was admitted yesterday with possible angioedema secondary to vancomycin capsule. She received Medrol Dosepak and Benadryl and her symptoms a lot better. She complains to have headache with the frontal sinus pain bilaterally. OBJECTIVE: Vital Signs-as noted below Exam: General-no distress at rest exophytic No swelling of the tongue, throat, lips. No problem with swallowing and/or breathing Eyes-normal ENT-normal Neck-supple, no neck stiffness, neck movement produces minimal pain. Lungs-clear to auscultate bilaterally Heart-regular, no murmur Abdomen-benign, no masses, bowel sounds present Extremities-no edema Neuro-alert awake oriented 3. No focal sensory and/or motor deficit appreciated. Lab data as noted below. ASSESSMENT & PLAN: TONGUE/LIP SWELLING/ANGIOEDEMA/POSSIBLE ALLERGIC REACTION TO DRUG: Angioedema was thought to be due to vancomycin capsule, the patient has been on losartan for the blood pressure control. I think the angioedema is likely due to losartan. Clinically swelling much improved since admission New medications include trazodone/p.o. vancomycin Patient was on trazodone for last 4 days while inpatient did not had any allergic reaction Oral solution vancomycin was changed to tablet form on discharge Ordered to hold losartan Vancomycin PO Component change to solution Patient will be continued with prednisone taper, Benadryl as needed Clinically better Headache He has bilateral frontal sinus pain and tenderness on palpation. Likely has frontal sinusitis, seems to be the cause of headache. No neuro deficit on examination. We will start Keflex and gave stronger pain medications for headache. HYPERTENSION: BP stable: Hold Losartan up for possible adverse reaction Patient is continued with amlodipine 5 mg daily Metoprolol dose increased to 25 mg twice daily (was on 25 mg daily) TYPE 2 DIABETES Diet-controlled Patient been off medication after gastric bypass CODE STATUS: Full code DVT prophylaxis subcu heparin: DISPOSITION: Expected to be discharged home in the next 24 hours If allergic reaction/symptoms is resolved Social service/pharmacy consulted /appreciate help and input from pharmacy In ER Patient will be discharged with oral p.o. vancomycin solution to complete rest of her antibiotic course Medicine follow-up with Dr. Conrad Mckeon Vital Signs: Date Time Temp Pulse Resp B/P (MAP) Pulse Ox O2 Delivery O2 Flow Rate FiO2 09/10/17 08:45 Room Air 09/10/17 07:47 37.0 92 18 146/88 (107) 95 Room Air 09/10/17 00:00 Room Air 09/09/17 23:42 36.9 94 19 163/86 (111) 96 Room Air 09/09/17 18:00 36.5 113 20 146/99 (115) 97 Room Air 09/09/17 17:50 87 16 134/85 97 09/09/17 17:00 87 09/09/17 16:53 97 Room Air 09/09/17 16:30 89 09/09/17 16:00 87 93 09/09/17 15:30 83 09/09/17 15:24 134/85 09/09/17 15:23 85 16 134/85 97 Room Air 09/09/17 15:00 83 09/09/17 14:39 102 18 133/105 97 Room Air 09/09/17 14:15 112 09/09/17 13:59 37.2 104 20 164/104 97 Room Air Lab Results: Results Past 24 Hours Test 09/10/17 06:01 Range/Units White Blood Count 8.42 4.8-10.8 K/uL Red Blood Count 3.57 4.2-5.4 M/uL Hemoglobin 10.8 12.0-16.0 g/dL Hematocrit 32.9 37-47 % Mean Corpuscular Volume 92.2 80-100 fL Mean Corpuscular Hemoglobin 30.3 25-34 pg Mean Corpuscular Hemoglobin Concent 32.8 32-36 g/dl RDW Standard Deviation 50.5 36.4-46.3 fL RDW Coefficient of Variation 14.9 11.5-14.5 % Platelet Count 376 130-400 K/uL Mean Platelet Volume 8.3 7.4-10.4 fL Sodium Level 138 136-145 mmol/L Potassium Level 4.1 3.5-5.1 mmol/L Chloride Level 103 98-107 mmol/L Carbon Dioxide Level 27 21-32 mmol/L Anion Gap 8.0 3-11 mmol/L Blood Urea Nitrogen 9 7-18 mg/dl Creatinine 0.76 0.60-1.20 mg/dl Est Creatinine Clear Calc Drug Dose 75.1 ml/min Estimated GFR () 93.4 Estimated GFR (Non- 80.6 BUN/Creatinine Ratio 12.2 10-20 Random Glucose 182 70-99 mg/dl Calcium Level 9.2 8.5-10.1 mg/dl
[2017-09-10] MEDS: CEPHALEXIN MONOHYDRATE 500 MG CAP PO SCH ×2 (13:39→20:33)
[2017-09-10 13:41] VITALS: BP 119/76; PULSE 73
[2017-09-10 15:42] VITALS: BP 118/71; PULSE 79; TEMP 37.1; O2SAT 93
[2017-09-10 16:00] VITALS: O2SAT 93
[2017-09-10] MEDS: MIRTAZAPINE TAB 15 MG TAB PO SCH (20:35)
[2017-09-10] MEDS: TRAZODONE HCL 50 MG TAB PO SCH (20:35)
[2017-09-10 20:36] VITALS: BP 136/76; PULSE 76
[2017-09-10] MEDS ORDERED: METHYLPREDNISOLONE 4 MG TAB PO SCH (21:00)
[2017-09-11 00:31] VITALS: BP 123/77; PULSE 78; TEMP 37.1; O2SAT 95
[2017-09-11] MEDS: RASPBERRY SYRUP 5 ML UDP PO SCH ×3 (01:22→12:58)
[2017-09-11] MEDS: VANCOMYCIN HCL 125 MG/2.5ML SOLN PO SCH ×3 (01:22→12:58)
[2017-09-11] MEDS: HYDROmorphone INJ 0.5 MG/0.5 ML SYR IV PRN ×2 (02:10→11:11)
[2017-09-11] MEDS: HEPARIN SOD 5000 UNIT/0.5 ML CARP SQ SCH ×2 (05:37→12:00)
[2017-09-11] MEDS: TRAMADOL HCL 50 MG TAB PO PRN ×2 (06:39→13:02)
[2017-09-11] MEDS: METHYLPREDNISOLONE 4 MG TAB PO SCH ×2 (06:42→12:59)
[2017-09-11 07:45] VITALS: BP 158/90; PULSE 66; TEMP 36.7; O2SAT 94
[2017-09-11 08:07] VITALS: O2SAT 94
[2017-09-11] MEDS: CEPHALEXIN MONOHYDRATE 500 MG CAP PO SCH ×2 (08:38→14:15)
[2017-09-11] MEDS: CLOPIDOGREL BISULFATE 75 MG TAB PO SCH (08:39)
[2017-09-11] MEDS: CYCLOBENZAPRINE HCL 10 MG TAB PO SCH ×2 (08:39→14:14)
[2017-09-11] MEDS: DULOXETINE HCL 60 MG CAP PO SCH (08:40)
[2017-09-11] MEDS: AMLODIPINE BESYLATE 5 MG TAB PO SCH (08:40)
[2017-09-11] MEDS: METOPROLOL TARTRATE 25 MG TAB PO SCH (08:41)
[2017-09-11] MEDS: MULTIVITAMIN TAB PO SCH (08:41)
[2017-09-11] MEDS: PANTOprazole SOD 40 MG TAB PO SCH (08:41)
[2017-09-11] MEDS: PROPRANOLOL HCL 20 MG TAB PO SCH ×2 (08:41→14:15)
[2017-09-11] MEDS ORDERED: AMLODIPINE BESYLATE 5 MG TAB PO ONE (12:28)
[2017-09-11 13:52] VITALS: BP 158/90; PULSE 66; TEMP 36.7; O2SAT 94
[2017-09-11] MEDS ORDERED: HYDROmorphone HCL 2 MG TAB PO PRN (14:00)
[2017-09-11 14:03] VITALS: BP 117/75
--- NOTE | 2017-09-11 14:11 | Progress Note ---
Internal Med Progress Note Date of Service: Sep 11, 2017. Provider Documentation: SUBJECTIVE: The patient was seen and examined in the medical floor. She was admitted yesterday with possible angioedema secondary to vancomycin capsule. She received Medrol Dosepak and Benadryl and her symptoms a lot better. She complains to have headache with the frontal sinus pain bilaterally. 09/11 No more headache Ambulating well without any pain Pain is well controlled OBJECTIVE: Vital Signs-as noted below Exam: General-no distress at rest exophytic No more swelling of the tongue, throat, lips. No problem with swallowing and/or breathing Eyes-normal ENT-normal Neck-supple, no neck stiffness, neck movement produces minimal pain. Lungs-clear to auscultate bilaterally Heart-regular, no murmur Abdomen-benign, no masses, bowel sounds present Extremities-no edema Neuro-alert awake oriented 3. No focal sensory and/or motor deficit appreciated. Lab data as noted below. ASSESSMENT & PLAN: TONGUE/LIP SWELLING/ANGIOEDEMA/POSSIBLE ALLERGIC REACTION TO DRUG: Angioedema was thought to be due to vancomycin capsule, the patient has been on losartan for the blood pressure control. I think the angioedema is likely due to losartan. Clinically swelling much improved since admission New medications include trazodone/p.o. vancomycin Patient was on trazodone for last 4 days while inpatient did not had any allergic reaction Oral solution vancomycin was changed to tablet form on discharge Ordered to hold losartan-Will not restart Losartan Vancomycin PO Component change to solution Patient will be continued with prednisone taper, Benadryl as needed Clinically better and wants to go home today Headache He has bilateral frontal sinus pain and tenderness on palpation. Likely has frontal sinusitis, seems to be the cause of headache. No neuro deficit on examination. We will start Keflex and gave stronger pain medications for headache. Sinus pain and headache is improved Neck and Back pain better HYPERTENSION: BP stable: Hold Losartan up for possible adverse reaction Patient is continued with amlodipine 5 mg daily Metoprolol dose increased to 25 mg twice daily (was on 25 mg daily) Increased Amlodipine to 10mg Has been on 2 different types of BB-Toprol and Propranolol---she will discuss with the Mining Technician about it TYPE 2 DIABETES Diet-controlled Patient been off medication after gastric bypass CODE STATUS: Full code DVT prophylaxis subcu heparin: DISPOSITION: Expected to be discharged home in the next 24 hours If allergic reaction/symptoms is resolved Social service/pharmacy consulted /appreciate help and input from pharmacy In ER Patient will be discharged with oral p.o. vancomycin solution to complete rest of her antibiotic course Medicine follow-up with Dr. Conrad Mckeon Vital Signs: Date Time Temp Pulse Resp B/P (MAP) Pulse Ox O2 Delivery O2 Flow Rate FiO2 09/11/17 13:52 36.7 66 18 94 Room Air 09/11/17 08:10 Room Air 09/11/17 08:07 94 Room Air 09/11/17 07:45 36.7 66 18 158/90 (112) 94 Room Air 09/11/17 00:31 37.1 78 18 123/77 (92) 95 Room Air 09/11/17 00:15 Room Air 09/10/17 20:36 76 136/76 (96) 09/10/17 16:00 93 Room Air 09/10/17 15:42 37.1 79 20 118/71 (87) 93 Room Air
[2017-09-11] MEDS ORDERED: LCTX PO (15:11)
[2017-09-11] MEDS ORDERED: FLX10 PO (15:11)
[2017-09-11] MEDS ORDERED: MDR4 PO (15:11)
[2017-09-11] MEDS ORDERED: DLD/2 PO (15:11)
[2017-09-11] MEDS ORDERED: KFL500 PO (15:11)
--- NOTE | 2017-09-11 15:15 | Discharge Instructions ---
Discharge Instructions Date of Service Sep 11, 2017. Admission Reason for Admission: Allergic Reaction, Allergic Reaction To Drug Discharge Discharge Diagnosis / Problem: Angioedema,Frontal Sinusitis,Headache and Neck pain,C Diff Colitis Discharge Goals Goal(s): Prevent Disease Progression Activity Recommendations Activity Limitations: resume your previous activity . Instructions / Follow-Up Instructions / Follow-Up Please keep appointment with your PCP and Cardiology Current Hospital Diet Patient's current hospital diet: AHA Diet (Heart Healthy) Discharge Diet Recommended Diet: AHA Diet (Heart Healthy), Diabetes Type 2 Diet Pending Studies Studies pending at discharge: no Laboratory Results Hemoglobin A1c Test 09/01/17 19:20 Range/Units Estimated Average Glucose 128 mg/dl Hemoglobin A1c 6.1 H 4.5-5.6 % Medical Emergencies . Who to Call and When: Medical Emergencies: If at any time you feel your situation is an emergency, please call 911 immediately. . Non-Emergent Contact Non-Emergency issues call your: Primary Care Provider . Past History Medical & Surgical History: (1) Allergic reaction to drug (2) Angioedema (3) C. difficile colitis (4) DM2 (diabetes mellitus, type 2) (5) Hypertension (6) Sacral back pain (7) Anxiety (8) S/P tonsillectomy and adenoidectomy (9) H/O gastric bypass (10) History of carpal tunnel surgery (11) S/P appendectomy (12) S/p left shoulder surgery (13) Total knee replacement status (14) S/P cholecystectomy (15) S/P parathyroidectomy (16) Previous section (17) H/O spinal fusion (18) H/O hernia repair (19) Hyperlipidemia (20) Recurrent UTI (urinary tract infection) (21) Shoulder pain . "Provider Documentation" section prepared by Alon Cheney. .
[2017-09-11] MEDS ORDERED: VANC1SUS PO (15:19)
[2017-09-11] MEDS ORDERED: LACTOBACILLUS ACIDOPHILUS (FLORANEX) TAB PO SCH (20:00)
[2017-09-12] MEDS ORDERED: METHYLPREDNISOLONE 4 MG TAB PO SCH (07:00)
--- NOTE | 2017-09-12 07:31 | Discharge Summary ---
Discharge Summary Date of Service Sep 12, 2017. Discharge Summary Admission Date: Sep 09, 2017 at 16:38 Discharge Date: Sep 11, 2017 Discharge Disposition: Home Principal Diagnosis: Angioedema,Frontal Sinusitis,Headache and Neck pain,C Diff Colitis Secondary Diagnoses/Problems: Please see H&P and Hospital Progress note Medication Reconciliation New Medications: Cephalexin Monohydrate (Cephalexin) 500 Mg Cap 500 MG PO TID for 7 Days, #21 CAP Cyclobenzaprine HCl (Cyclobenzaprine HCl) 10 Mg Tab 10 MG PO TID PRN for neck pain for 10 Days, #30 TAB Hydromorphone HCl (Hydromorphone HCl) 2 Mg Tab 2 MG PO Q6H PRN for Pain for 5 Days, #20 TAB Lactobacillus Acidophilus (Floranex) 1 Tab Tab 2 TAB PO BID for 7 Days, #30 TAB Methylprednisolone (Methylprednisolone) 4 Mg Tab 4 MG PO UD for 3 Days, #6 TAB 1 po TID on 09/12,1 po BID for 09/13 and then 1 po on 09/14/17 Vancomycin HCl (Vancomycin HCl + Syrspend) 50 Mg/Ml Sarah 125 MG PO Q6H for 7 Days, #28 Continued Medications: Albuterol Hfa (Ventolin Hfa) 200 Puffs/56077 Mcg Aers 2 PUFFS INH Q6H PRN for Wheezing Amlodipine Besylate (Amlodipine Besylate) 5 Mg Tab 10 MG PO DAILY Clopidogrel Bisulfate (Clopidogrel) 75 Mg Tab 75 MG PO QAM Cyclosporine (Ophth) (Restasis) 0.05 % Emu 1 DROP OPB BID Duloxetine HCl (Duloxetine HCl) 60 Mg Cap 60 MG PO DAILY Fluticasone Propionate (Nasal) (Flonase Allergy Relief) 50 Mcg/Act Spr 2 SPRAYS SALOMÓN DAILY PRN for Allergy Symptoms Hydroxyzine HCl (Hydroxyzine HCl) 25 Mg Tab 25 MG PO BID PRN for Anxiety Metoprolol Succinate (Metoprolol Succinate ER) 25 Mg Tabcr 25 MG PO QAM Mirtazapine (Remeron) 15 Mg Tab 15 MG PO HS Multivitamin (Multivitamin) Tab 1 TAB PO DAILY Ondansetron Hcl (Zofran) 4 Mg Tab 4 MG PO Q8 PRN for Nausea, TAB Pantoprazole (Protonix) 40 Mg Tab 40 MG PO DAILY, TAB Propranolol (Inderal) 20 Mg Tab 20 MG PO TID Tramadol HCl (Tramadol HCl) 50 Mg Tab 50 MG PO Q6H PRN for Pain Trazodone Hcl (Trazodone) 50 Mg Tab 50 MG PO HSZ, TAB Discontinued Medications: Losartan Potassium (Cozaar) 100 Mg Tab 50 MG PO DAILY Vancomycin HCl (Vancomycin HCl + Syrspend) 50 Mg/Ml Sarah 125 MG PO Q6 for 12 Days, #6000 MG Admission Information HPI (per Admitting provider): This is a 67-year-old female with medical history of recurrent C. difficile, high blood pressure, depression was discharged from [facility] yesterday on oral p.o. vancomycin for C. difficile. Patient was receiving p.o. vancomycin solution in hospital, got approximately 4 days dose has not had any complication Picked up oral vancomycin tablet from her pharmacy on discharged. Took 1 tablet yesterday evening , next dose was at midnight Woke up this morning with severe lip swelling, tongue swelling could not close her mouth, could not talk, did not had any breathing issue Also noticed her both hands, and both feet got swollen had tingling and numbness on both lower extremity, developed severe neck pain in the morning unable to turn head- no history of trauma or fall went to [facility] ER, was given steroids Was asked to discontinue p.o. vancomycin and start on oral Flagyl She refused refused further oral Flagyl, as was treated in past for C. difficile With Flagyl, was not effective Patient was worried that she may develop allergic reaction to the tablet vancomycin. Came to [facility] ER, as she was recently treated in the hospital Wants to be on oral vancomycin solution to complete rest part of her treatment [id number] In the ER patient's lip and tongue swelling improved Still had some difficulty To speak In the morning she was not able to swallow food, now has improved Pharmacy was contacted to make arrangements for oral solution of vancomycin Patient was still feeling very Weak and dizzy spell, worried about persistent feeling of tongue swelling, hand and feet swelling Does not feel comfortable going home And to come back to ER tomorrow morning if she symptoms get worse or she is not able to breathe. Past Medical/Surgical History Medical Problems: (1) Allergic reaction (2) Allergic reaction to drug (3) Ambulatory dysfunction (4) Anemia (5) Anxiety (6) ARF (acute renal failure) (7) Asthma (8) C. difficile diarrhea (9) Chronic left shoulder pain (10) Chronic low back pain (11) Confusion (12) Dehydration (13) Dehydration (14) Diarrhea (15) Dizziness (16) Dizziness (17) Dizziness (18) Dizziness, nonspecific (19) DM2 (diabetes mellitus, type 2) (20) Epigastric abdominal pain (21) Generalized weakness (22) GERD (gastroesophageal reflux disease) (23) Headache (24) Hyperlipidemia (25) Hypertension (26) Hypertensive urgency (27) Hypokalemia (28) Hypokalemia (29) Morbid obesity (30) Nausea (31) Nausea & vomiting (32) Near syncope (33) Neck mass (34) Neuropathy (35) Obesity (36) Pneumonia involving left lung (37) Polypharmacy (38) Pseudomonas urinary tract infection (39) Radiating chest pain (40) Recurrent UTI (urinary tract infection) (41) Sacral back pain (42) Shoulder pain (43) SIRS (systemic inflammatory response syndrome) (44) Slurred speech (45) Tachycardia (46) TIA (transient ischemic attack) (47) UTI (urinary tract infection) (48) UTI (urinary tract infection) (49) Viral syndrome (50) Weakness Surgical Problems: (1) H/O gastric bypass (2) H/O hernia repair (3) H/O spinal fusion (4) History of carpal tunnel surgery (5) Previous section (6) S/P appendectomy (7) S/P cholecystectomy (8) S/p left shoulder surgery (9) S/P parathyroidectomy (10) S/P tonsillectomy and adenoidectomy (11) Total knee replacement status Family History Diabetes mellitus Gallbladder disease Heart disease Hypertension Social History Smoking Status: Unknown if Ever Smoked Drug Use: none Marital Status: Housing status: lives with significant other Occupational Status: retired Immunizations History of Influenza Vaccine: Yes Influenza Vaccine Date: Apr 18, 2013 History of Tetanus Vaccine?: Yes History of Pneumococcal: Yes History of Hepatitis B Vaccine: Yes Multi-Drug Resistant Organisms History of MDRO: No Allergies Coded Allergies: Atorvastatin (Verified Allergy, Unknown, myalgias per PCP note , 09/09/17) Losartan (Verified Allergy, Unknown, HIVES, 09/09/17) ANIGIOEDEMA /TONGUE AND LIP SWELLING Rosuvastatin (Unverified Allergy, Unknown, MUSCLE ACHES, 09/09/17) CI Pigment Blue 63 (Verified Adverse Reaction, Mild, PSYCHOSIS, 09/09/17) Duloxetine (Verified Adverse Reaction, Mild, PSYCHOSIS, 09/09/17) Gabapentin (Verified Adverse Reaction, Mild, PSYCHOSIS, 09/09/17) Morphine (Verified Adverse Reaction, Mild, NAUSEA, 09/09/17) NSAIDs (Verified Adverse Reaction, Unknown, s/p bariatric surgery, 09/09/17 ) per gmg Home Medications Scheduled Amlodipine Besylate (Amlodipine Besylate), 5 MG PO DAILY Clopidogrel Bisulfate (Clopidogrel), 75 MG PO QAM Cyclosporine (Ophth) (Restasis), 1 DROP OPB BID Duloxetine HCl (Duloxetine HCl), 60 MG PO DAILY Losartan Potassium (Cozaar), 50 MG PO DAILY Metoprolol Succinate (Metoprolol Succinate ER), 25 MG PO QAM Mirtazapine (Remeron), 15 MG PO HS Multivitamin (Multivitamin), 1 TAB PO DAILY Pantoprazole (Protonix), 40 MG PO DAILY Propranolol (Inderal), 20 MG PO TID Trazodone Hcl (Trazodone), 50 MG PO HSZ Vancomycin HCl (Vancomycin HCl + Syrspend), 125 MG PO Q6 Scheduled PRN Albuterol Hfa (Ventolin Hfa), 2 PUFFS INH Q6H PRN for Wheezing Fluticasone Propionate (Nasal) (Flonase Allergy Relief), 2 SPRAYS SALOMÓN DAILY PRN for Allergy Symptoms Hydroxyzine HCl (Hydroxyzine HCl), 25 MG PO BID PRN for Anxiety Ondansetron Hcl (Zofran), 4 MG PO Q8 PRN for Nausea Tramadol HCl (Tramadol HCl), 50 MG PO Q6H PRN for Pain Review of Systems Constitutional: No fever, No chills, No sweats, No weight loss, No weakness, No fatigue, No problem reported ENT: + trouble swallowing, + problem reported (Tongue and lip swelling, unable to speak) Respiratory: No cough, No sputum, No wheezing, No shortness of breath, No dyspnea on exertion, No dyspnea at rest, No hemoptysis, No problem reported Cardiovascular: No chest pain, No orthopnea, No PND, No edema, No claudication , No palpitations, No problem reported Abdomen: + diarrhea (Has ongoing diarrhea) Musculoskeletal: + swelling (Bilateral hand swelling, lower extremity swelling) , + problem reported (Neck pain started this morning) Neurologic: + weakness, + numbness/tingling Psychiatric: + anxiety, + insomnia Physical Ex - H&P Physical Exam Vital Signs Date Time Temp Pulse Resp B/P (MAP) Pulse Ox O2 Delivery O2 Flow Rate FiO2 09/09/17 15:23 85 16 134/85 97 Room Air 09/09/17 14:39 102 18 133/105 97 Room Air 09/09/17 14:15 112 09/09/17 13:59 37.2 104 20 164/104 97 Room Air General Appearance: no apparent distress Head: atraumatic Eyes: sclerae normal ENT: hearing grossly normal, + pertinent finding (Positive for tongue swelling and erythema, patient mentions it is painful to swallow) Neck: supple, + pertinent finding (Point tenderness on the posterior cervical spine area) Respiratory/Chest: lungs clear, normal breath sounds, no respiratory distress Cardiovascular: regular rate, rhythm Abdomen/GI: normal bowel sounds, non tender, soft Extremities/Musculoskelatal: + pertinent finding (Trace bilateral pedal edema, mild swelling of dorsal hands and fingers, no rash or erythema noted) Neurologic/Psych: no motor/sensory deficits, alert, normal reflexes, + pertinent finding (Anxious) Diagnostics - H&P Diagnostics Impression - H&P Impression Assessment and Plan TONGUE/LIP SWELLING/ANGIOEDEMA/POSSIBLE ALLERGIC REACTION TO DRUG: Clinically swelling much improved since admission New medications include trazodone/p.o. vancomycin Patient was on trazodone for last 4 days while inpatient did not had any allergic reaction Oral solution vancomycin was changed to tablet form on discharge Patient is concerned possible allergic reaction to the oral vancomycin tablet Clinical presentation with sudden onset of angioedema is more related to idiosyncratic allergic reaction to TANYA and ARB Has been on losartan number of days Ordered to hold losartan Vancomycin PO Component change to solution Patient will be continued with prednisone taper, Benadryl as needed Continue to monitor HYPERTENSION: BP stable: Hold Losartan up for possible adverse reaction Patient is continued with amlodipine 5 mg daily Metoprolol dose increased to 25 mg twice daily (was on 25 mg daily) Norvasc does not increase as patient already has bilateral lower extremity edema close follow-up with family physician for adjustment of antihypertensive and blood pressure monitoring Losartan added in the allergy test TYPE 2 DIABETES Diet-controlled Patient been off medication after gastric bypass CODE STATUS: Full code DVT prophylaxis subcu heparin: DISPOSITION: Expected to be discharged home in the next 24 hours If allergic reaction/symptoms is resolved Social service/pharmacy consulted /appreciate help and input from pharmacy In ER Patient will be discharged with oral p.o. vancomycin solution to complete rest of her antibiotic course Medicine follow-up with Dr. Conrad Mckeon Level of Care Med/Surg Resuscitation Status FULL RESUSCITATION VTE Prophylaxis Risk Level: Moderate Given or contraindicated: Unfractionated heparin SQ Additional Copies To Conrad Mckeon D.O. Physical Exam (per Admitting): General Appearance: no apparent distress Head: atraumatic Eyes: sclerae normal ENT: hearing grossly normal, + pertinent finding (Positive for tongue swelling and erythema, patient mentions it is painful to swallow) Neck: supple, + pertinent finding (Point tenderness on the posterior cervical spine area) Respiratory/Chest: lungs clear, normal breath sounds, no respiratory distress Cardiovascular: regular rate, rhythm Abdomen/GI: normal bowel sounds, non tender, soft Extremities/Musculoskelatal: + pertinent finding (Trace bilateral pedal edema, mild swelling of dorsal hands and fingers, no rash or erythema noted) Neurologic/Psych: no motor/sensory deficits, alert, normal reflexes, + pertinent finding (Anxious) Hospital Course TONGUE/LIP SWELLING/ANGIOEDEMA/POSSIBLE ALLERGIC REACTION TO DRUG: Angioedema was thought to be due to vancomycin capsule, the patient has been on losartan for the blood pressure control. I think the angioedema is likely due to losartan. Clinically swelling much improved since admission New medications include trazodone/p.o. vancomycin Patient was on trazodone for last 4 days while inpatient did not had any allergic reaction Oral solution vancomycin was changed to tablet form on discharge Ordered to hold losartan-Will not restart Losartan Vancomycin PO Component change to solution Patient will be continued with prednisone taper, Benadryl as needed Clinically better and wants to go home today Headache He has bilateral frontal sinus pain and tenderness on palpation. Likely has frontal sinusitis, seems to be the cause of headache. No neuro deficit on examination. We will start Keflex and gave stronger pain medications for headache. Sinus pain and headache is improved Neck and Back pain better HYPERTENSION: BP stable: Hold Losartan up for possible adverse reaction Patient is continued with amlodipine 5 mg daily Metoprolol dose increased to 25 mg twice daily (was on 25 mg daily) Increased Amlodipine to 10mg Has been on 2 different types of BB-Toprol and Propranolol---she will discuss with the Anchor Tacker about it TYPE 2 DIABETES Diet-controlled Patient been off medication after gastric bypass CODE STATUS: Full code DVT prophylaxis subcu heparin: DISPOSITION: Expected to be discharged home in the next 24 hours If allergic reaction/symptoms is resolved Social service/pharmacy consulted /appreciate help and input from pharmacy In ER Patient will be discharged with oral p.o. vancomycin solution to complete rest of her antibiotic course Medicine follow-up with Dr. Conrad Mckeon Total time spent on discharge = 35 minutes This includes examination of the patient, discharge planning, medication reconciliation, and communication with other providers. Discharge Instructions Date of Service Sep 11, 2017. Admission Reason for Admission: Allergic Reaction, Allergic Reaction To Drug Discharge Discharge Diagnosis / Problem: Angioedema,Frontal Sinusitis,Headache and Neck pain,C Diff Colitis Discharge Goals Goal(s): Prevent Disease Progression Activity Recommendations Activity Limitations: resume your previous activity . Instructions / Follow-Up Instructions / Follow-Up Please keep appointment with your PCP and Cardiology Current Hospital Diet Patient's current hospital diet: AHA Diet (Heart Healthy) Discharge Diet Recommended Diet: AHA Diet (Heart Healthy), Diabetes Type 2 Diet Pending Studies Studies pending at discharge: no Laboratory Results Hemoglobin A1c Test 09/01/17 19:20 Range/Units Estimated Average Glucose 128 mg/dl Hemoglobin A1c 6.1 H 4.5-5.6 % Medical Emergencies . Who to Call and When: Medical Emergencies: If at any time you feel your situation is an emergency, please call 911 immediately. . Non-Emergent Contact Non-Emergency issues call your: Primary Care Provider . Past History Medical & Surgical History: (1) Allergic reaction to drug (2) Angioedema (3) C. difficile colitis (4) DM2 (diabetes mellitus, type 2) (5) Hypertension (6) Sacral back pain (7) Anxiety (8) S/P tonsillectomy and adenoidectomy (9) H/O gastric bypass (10) History of carpal tunnel surgery (11) S/P appendectomy (12) S/p left shoulder surgery (13) Total knee replacement status (14) S/P cholecystectomy (15) S/P parathyroidectomy (16) Previous section (17) H/O spinal fusion (18) H/O hernia repair (19) Hyperlipidemia (20) Recurrent UTI (urinary tract infection) (21) Shoulder pain . "Provider Documentation" section prepared by Alon Cheney. . <Electronically signed by Alon Cheney M.D.> Signed: 09/11/17 [id number] Additional Copies To Conrad Mckeon D.O.
[2017-09-12] MEDS ORDERED: AMLODIPINE BESYLATE 5 MG TAB PO SCH (08:00)
[2017-09-13] MEDS ORDERED: METHYLPREDNISOLONE 4 MG TAB PO SCH (07:00)
[2017-09-14] MEDS ORDERED: METHYLPREDNISOLONE 4 MG TAB PO SCH (07:00)
== END 2017-09-11 16:27 | disposition home or self-care (01) ==
LOC: C.EDB 13:58 → C.4E 16:38 → EDBEDREQ 16:48 → ENRESERV 17:44
PROVIDERS: ADMIT Hospitalist; ATTEND Internal Medicine
DX: T78.3XXA Angioneurotic edema, initial encounter (principal); A04.72 Enterocolitis due to Clostridium difficile, not specified as recurrent; J32.1 Chronic frontal sinusitis; F41.9 Anxiety disorder, unspecified; J45.909 Unspecified asthma, uncomplicated; E11.9 Type 2 diabetes mellitus without complications; K21.9 Gastro-esophageal reflux disease without esophagitis; E78.5 Hyperlipidemia, unspecified; I10 Essential (primary) hypertension; E66.01 Morbid (severe) obesity due to excess calories; Z87.440 Personal history of urinary (tract) infections; Z98.84 Bariatric surgery status; Z98.1 Arthrodesis status; Z90.89 Acquired absence of other organs; Z90.49 Acquired absence of other specified parts of digestive tract; E89.2 Postprocedural hypoparathyroidism; Z96.659 Presence of unspecified artificial knee joint; Z83.3 Family history of diabetes mellitus; Z82.49 Family history of ischemic heart disease and other diseases of the circulatory system; Z88.8 Allergy status to other drugs, medicaments and biological substances; Z91.048 Other nonmedicinal substance allergy status; Z88.5 Allergy status to narcotic agent; Z88.6 Allergy status to analgesic agent

== ENCOUNTER 2017-09-26 14:07 | Emergency (ER) | payer BC, MEDICARE ==
[~2017-09-26] VITALS: Ht 160 cm; Wt 94.0 kg
[~2017-09-26 14:07] MED LIST changes: +DLD/2 PO; -DSY50 PO; +FLX10 PO; +KFL500 PO; +LCTX PO; -LOSA100T65 PO; +MDR4 PO; +ONDA4TAB46 PO; -ONDA4TAB9 PO; +TRAZ50TA35 PO; +VANC1SUS PO; -VANC5CAP PO
[2017-09-26 14:14] VITALS: TEMP 37; Ht 160 cm; Wt 94.0 kg
--- NOTE | 2017-09-26 14:27 | EMERGENCY ROOM VISIT NOTE ---
History Report prepared by Tano: Cande Blas Under the Supervision of: Dr. Fermin Jones M.D. 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 She states she was walking to the bathroom and she tripped and fell. She states she felt like she had vertigo and she just went down. She notes she has moderate pain in her right ankle. She denies any headaches, chest pain, SOB, or abdominal pain. She also denies any LOC or hitting her head. 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 A total of ten systems were reviewed and were otherwise negative. Past Medical & Surgical Medical Problems: (1) Allergic reaction (2) Allergic reaction to drug (3) Anxiety (4) ARF (acute renal failure) (5) Asthma (6) C. difficile diarrhea (7) DM2 (diabetes mellitus, type 2) (8) GERD (gastroesophageal reflux disease) (9) Hyperlipidemia (10) Hypertension (11) Morbid obesity (12) Pseudomonas urinary tract infection (13) Recurrent UTI (urinary tract infection) (14) Sacral back pain (15) Shoulder pain (16) UTI (urinary tract infection) Surgical Problems: (1) H/O gastric bypass (2) H/O hernia repair (3) H/O spinal fusion (4) History of carpal tunnel surgery (5) Previous section (6) S/P appendectomy (7) S/P cholecystectomy (8) S/p left shoulder surgery (9) S/P parathyroidectomy (10) S/P tonsillectomy and adenoidectomy (11) Total knee replacement status Family History Diabetes mellitus Gallbladder disease Heart disease Hypertension Social History Smoking Status: Never Smoker Alcohol Use: none Drug Use: none Marital Status: Housing Status: lives with significant other Occupation Status: retired Current/Historical Medications Scheduled Amlodipine Besylate (Amlodipine Besylate), 10 MG PO QAM Clopidogrel Bisulfate (Clopidogrel), 75 MG PO QAM Cyclosporine (Ophth) (Restasis), 1 DROP OPB BID Duloxetine HCl (Duloxetine HCl), 60 MG PO QAM Metoprolol Succinate (Metoprolol Succinate ER), 25 MG PO QAM Multivitamin (Multivitamin), 1 TAB PO QAM Pantoprazole (Protonix), 40 MG PO QAM Propranolol (Inderal), 20 MG PO TID Scheduled PRN Albuterol Hfa (Ventolin Hfa), 2 PUFFS INH Q6H PRN for Wheezing Cyclobenzaprine Hcl (Flexeril), 10 MG PO TID PRN for NECK PAIN Fluticasone Propionate (Nasal) (Flonase Allergy Relief), 2 SPRAYS SALOMÓN DAILY PRN for Allergy Symptoms Hydroxyzine HCl (Hydroxyzine HCl), 25 MG PO BID PRN for Anxiety Oxycodone/Acetaminophen 5MG/325MG (Percocet 5MG/325MG), 1 TAB PO TID PRN for Pain Allergies Coded Allergies: Atorvastatin (Verified Allergy, Unknown, myalgias per PCP note , 09/26/17) Losartan (Verified Allergy, Unknown, HIVES, 09/26/17) ANIGIOEDEMA /TONGUE AND LIP SWELLING Rosuvastatin (Unverified Allergy, Unknown, MUSCLE ACHES, 09/26/17) CI Pigment Blue 63 (Verified Adverse Reaction, Mild, PSYCHOSIS, 09/26/17) Duloxetine (Verified Adverse Reaction, Mild, PSYCHOSIS, 09/26/17) Gabapentin (Verified Adverse Reaction, Mild, PSYCHOSIS, 09/26/17) Morphine (Verified Adverse Reaction, Mild, NAUSEA, 09/26/17) NSAIDs (Verified Adverse Reaction, Unknown, s/p bariatric surgery, 09/26/17) per gmg Physical Exam Vital Signs Date Time Temp Pulse Resp B/P (MAP) Pulse Ox O2 Delivery O2 Flow Rate FiO2 09/26/17 16:14 73 18 138/80 96 Room Air 09/26/17 14:14 37.0 74 16 127/79 97 Physical Exam Physical Exam GENERAL: she is oriented to person, place, and time. She appears well- developed and well-nourished. She does not appear distressed. ____ HENT: Exam performed. Head: Normocephalic and atraumatic. Right Ear: External ear normal. No mastoid tenderness. Left Ear: External ear normal. No mastoid tenderness. Mouth/Throat: The oropharynx is clear and moist. No trismus in the jaw. No dental abscesses or uvula swelling. No oropharyngeal exudate or tonsillar abscesses. ____ EYES: Conjunctivae and EOM are normal. Pupils are equal, round, and reactive to light. Right eye exhibits no discharge. Left eye exhibits no discharge. No scleral icterus. ____ NECK: Normal range of motion. Neck supple. No JVD present. No spinous process tenderness present. No carotid bruit present. No rigidity. No tracheal deviation and normal range of motion present. No Brudzinski's sign and no Kernig 's sign noted. ____ CV: Normal rate, regular rhythm, normal heart sounds and intact distal pulses. There is no peripheral edema. Palpable radial pulses bue. ____ PULM/CHEST: Effort normal and breath sounds normal. No respiratory distress. No stridor. She has no wheezes. She has no rales. Chest Wall: She exhibits no tenderness. ____ ABD: The abdomen is soft. Bowel sounds are normal. She has no distension. No mass is present. There is no tenderness. There is no rebound, no guarding, no Whalen's sign and no tenderness at McBurney's point. Rovsig negative MUSC/SKEL: Normal range of motion. There is no peripheral edema, tenderness or deformity. LLE: Pain on palpation over the medial malleolus, the dorsum of the foot, and the left knee. Her pelvis was stable. No CT or L spine tenderness. LYMPH: No cervical adenopathy. ____ NEURO: She is alert and oriented to person, place, and time. She has normal strength. No cranial nerve deficit or sensory deficit. Coordination and gait normal. GCS eye subscore is 4. GCS verbal subscore is 5. GCS motor subscore is 6. Cerebellar tests wnl. ____ SKIN: Skin is warm and dry. She is not diaphoretic. ____ PSYCH: She has a normal mood and affect. Her behavior is normal. Judgment and thought content normal. ____ Medical Decision & Procedures ER Provider Diagnostic Interpretation: Radiology results as stated below per my review and radiologist interpretation: PELVIS 1 OR 2 VIEW ROUTINE CLINICAL HISTORY: 67 years-old Female presenting with fall. TECHNIQUE: Single frontal view of the pelvis was obtained. COMPARISON: CT from 01/18/2016. FINDINGS: Two screw fixation across the right sacroiliac joint. Posterior transpedicular screw and alexandria fixation in the lumbar spine. Laminectomy defects noted with interbody spacers at L4-5 and L5-S1. Osteopenia suggested. Sacroiliac joints, and pubic symphysis, and joint congruent. Bony pelvis intact. Atherosclerosis. IMPRESSION: 1. No acute osseous injury. 2. Osteopenia. 3. Lumbar and sacroiliac joint fixation hardware. Electronically signed by: Blayne French M.D. 09/26/2017 4:25 PM Dictated Date/Time: 09/26/2017 4:21 PM L KNEE 4 OR MORE VIEWS CLINICAL HISTORY: 67 years-old Female presenting with fall. TECHNIQUE: Frontal, sunrise, coronal, and lateral views of the left knee were obtained. COMPARISON: 06/19/2010. FINDINGS: Total left knee arthroplasty with patellar resurfacing. No malalignment. No periprosthetic fracture. No large joint effusion. Osteopenia suspected. Atherosclerosis. IMPRESSION: Total left knee arthroplasty without hardware complication. No acute osseous injury. Electronically signed by: Blayne French M.D. 09/26/2017 4:34 PM Dictated Date/Time: 09/26/2017 4:33 PM HEAD WITHOUT CONTRAST (CT) CLINICAL HISTORY: 67 years-old Female presenting with fall syncope. TECHNIQUE: Multidetector CT imaging of the head was performed without the use of intravenous contrast. IV contrast: None. A dose lowering technique was used consistent with the principles of ALARA (as low as reasonably achievable). COMPARISON: 01/18/2017. CT DOSE (mGy.cm): The estimated cumulative dose is 1156.[address] cervical spine. FINDINGS: Program Control Analyst topogram: Reverse total left shoulder arthroplasty. Cardiomegaly. Ventricles and sulci normal in size. Brain parenchyma normal in appearance with preserved medrano-white differentiation. No mass effect or midline shift. No hemorrhage or acute territorial infarct. No extra-axial fluid collection. Paranasal sinuses and mastoid air cells clear. Calvarium intact. IMPRESSION: 1. No acute intracranial abnormality. Electronically signed by: Blayne French M.D. 09/26/2017 2:54 PM Dictated Date/Time: 09/26/2017 2:53 PM L FOOT MIN 3 VIEWS ROUTINE CLINICAL HISTORY: 67 years-old Female presenting with fall pain over dorsum of foot. TECHNIQUE: Frontal, oblique, and lateral views of the left foot were obtained. COMPARISON: None. FINDINGS: Abnormally increased first metatarsophalangeal phalangeal angle suggesting hallux valgus deformity. Osteopenia noted. No acute fracture or acute subluxation. Atherosclerosis. Degenerative changes of the tarsometatarsal articulations. IMPRESSION: 1. Degenerative changes of the tarsometatarsal articulations. 2. Hallux valgus deformity. 3. No acute osseous injury. Electronically signed by: Blayne French M.D. 09/26/2017 4:33 PM Dictated Date/Time: 09/26/2017 4:27 PM CHEST ONE VIEW PORTABLE CLINICAL HISTORY: 67 years-old Female presenting with fall. TECHNIQUE: Portable upright AP view of the chest was obtained. COMPARISON: 09/01/2017. FINDINGS: Atherosclerosis of the aortic arch. Cardiac silhouette top normal in size. Mildly low lung volumes with hypoventilatory changes. Pulmonary vascular prominence. No focal opacity. No large effusion or pneumothorax. Partially visualized lumbar fusion hardware. Reverse total left shoulder arthroplasty. Cholecystectomy clips noted. IMPRESSION: 1. Mildly low lung volumes with hypoventilatory changes. No convincing evidence of acute cardiopulmonary disease. Electronically signed by: Blayne French M.D. 09/26/2017 4:35 PM Dictated Date/Time: 09/26/2017 4:34 PM CERVICAL SPINE W/O CLINICAL HISTORY: 67 years-old Female presenting with fall syncope. TECHNIQUE: Multidetector CT of the cervical spine was performed without the use of intravenous contrast. IV contrast: None. A dose lowering technique was used consistent with the principles of ALARA (as low as reasonably achievable). COMPARISON: 09/06/2016. CT DOSE (mGy.cm): The estimated cumulative dose is 1156.93 mGy.cm. FINDINGS: Program Control Analyst topogram: Reverse total left shoulder arthroplasty. Slight straightening of normal cervical lordosis likely positional and secondary to multilevel degenerative changes. No acute fracture or subluxation. Vertebral bodies maintain normal height and alignment. Intervertebral disc height loss evident at C4-5 through T1 to. Small disc osteophyte complexes noted at these levels. Posterior bony spurring evident from C4-5 through C6-7. Osseous neural foraminal narrowing evident at C5-6 greater on the right and C6-7 bilaterally. 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 Intraosseous lipoma suspected in the C3 vertebral body. Polypoid mucosal thickening in the right maxillary sinus with postsurgical changes of maxillary antrostomies suspected. Lung apices with mosaic attenuation suggesting small airways disease. Paraspinal soft tissues within normal limits allowing for noncontrast technique. Atherosclerosis noted. IMPRESSION: 1. No acute osseous injury of the cervical spine. 2. Multilevel degenerative changes. Electronically signed by: Blayne French M.D. 09/26/2017 3:01 PM Dictated Date/Time: 09/26/2017 2:57 PM L ANKLE MIN 3 VIEWS ROUTINE CLINICAL HISTORY: 67 years-old Female presenting with fall pain over medial malleolus. TECHNIQUE: Frontal, mortise, and lateral views of the left ankle were obtained. COMPARISON: None. FINDINGS: Ankle mortise intact. Obliquely oriented fracture of the distal fibular metaphysis extending from the lateral cortex proximally to the medial cortex distally at the level of the syndesmosis. No widening of the distal tibiofibular articulation. Osteopenia may be present. Posterior malleolus intact. Prominent enthesophyte at the inferior calcaneus. Atherosclerosis. IMPRESSION: Nondisplaced Ludwig B fibular fracture. Electronically signed by: Blayne French M.D. 09/26/2017 4:27 PM Dictated Date/Time: 09/26/2017 4:25 PM Laboratory Results 09/26/17 15:13 Red Blood Count 4.13, Mean Corpuscular Volume 86.4, Mean Corpuscular Hemoglobin 29.3, Mean Corpuscular Hemoglobin Concent 33.9, Mean Platelet Volume 8.1, Neutrophils (%) (Auto) 74.3, Lymphocytes (%) (Auto) 15.4, Monocytes (%) (Auto) 8.7, Eosinophils (%) (Auto) 1.2, Basophils (%) (Auto) 0.2, Neutrophils # (Auto) 4.77, Lymphocytes # (Auto) 0.99, Monocytes # (Auto) 0.56, Eosinophils # (Auto) 0.08, Basophils # (Auto) 0.01 09/26/17 15:13 Test 09/26/17 15:13 White Blood Count 6.42 K/uL (4.8-10.8) Red Blood Count 4.13 M/uL (4.2-5.4) Hemoglobin 12.1 g/dL (12.0-16.0) Hematocrit 35.7 % (37-47) Mean Corpuscular Volume 86.4 fL (80-100) Mean Corpuscular Hemoglobin 29.3 pg (25-34) Mean Corpuscular Hemoglobin Concent 33.9 g/dl (32-36) Platelet Count 375 K/uL (130-400) Mean Platelet Volume 8.1 fL (7.4-10.4) Neutrophils (%) (Auto) 74.3 % Lymphocytes (%) (Auto) 15.4 % Monocytes (%) (Auto) 8.7 % Eosinophils (%) (Auto) 1.2 % Basophils (%) (Auto) 0.2 % Neutrophils # (Auto) 4.77 K/uL (1.4-6.5) Lymphocytes # (Auto) 0.99 K/uL (1.2-3.4) Monocytes # (Auto) 0.56 K/uL (0.11-0.59) Eosinophils # (Auto) 0.08 K/uL (0-0.5) Basophils # (Auto) 0.01 K/uL (0-0.2) RDW Standard Deviation 49.7 fL (36.4-46.3) RDW Coefficient of Variation 15.6 % (11.5-14.5) Immature Granulocyte % (Auto) 0.2 % Immature Granulocyte # (Auto) 0.01 K/uL (0.00-0.02) Prothrombin Time 10.7 SECONDS (9.0-12.0) Prothromb Time International Ratio 1.0 (0.9-1.1) Activated Partial Thromboplast Time 24.0 SECONDS (21.0-31.0) Partial Thromboplastin Ratio 0.9 Anion Gap 11.0 mmol/L (3-11) Est Creatinine Clear Calc Drug Dose 59.9 ml/min Estimated GFR () 68.7 Estimated GFR (Non- 59.3 BUN/Creatinine Ratio 13.3 (10-20) Calcium Level 8.0 mg/dl (8.5-10.1) Troponin I < 0.015 ng/ml (0-0.045) Laboratory results reviewed by me Medications Administered Medications (Trade) Dose Ordered Sig/Valente Route Start Time Stop Time Status Last Admin Dose Admin Ketorolac Tromethamine (Toradol Inj) 15 mg NOW STAT IV 09/26/17 15:16 09/26/17 15:17 DC 09/26/17 15:23 15 MG Oxycodone/ Acetaminophen (Percocet 5-325mg Tab) 1 tab NOW ONCE PO 09/26/17 16:45 09/26/17 16:46 DC 09/26/17 16:55 1 TAB Procedure Splint was placed. fiberglass splint posterior short leg as well as sugar tong. Status post splint application patient was neurovascularly intact with good sensation as well as capillary refill less than 3 seconds. ECG Per My Interpretation Indication: other (fall) Rate (beats per minute): 65 Rhythm: sinus rhythm Findings: T-wave inversion (Lead III ), other (NH, QRS, and QTC all within normal limits, no ST elevation or ST depression, baseline wander in lead V5 most likely due to patient movement. ) ED Course 1420: The patient was evaluated in room B2. A complete history and physical exam was performed. EMR was reviewed. The patient had a negative echo done on September 06, 2016. It showed conjunctive fracture of 65%. 1516: Toradol Inj 15 mg IV 1616: X-rays show a left lower extremity fibular fracture. Labs and EKG within normal limits. CT of the head within normal limits. Other x-rays within normal limits. I discussed the patient's case with Ortho. He agrees the patient be placed in a splint and discharged home. I queried the PDMP. She has not had an controlled substances filled in the past year as per the PDMP. 1645: Splint was placed fiberglass splint posterior short leg as well as sugar tong. Status post splint application patient was neurovascularly intact with good sensation as well as capillary refill less than 3 seconds. Oxycodone/ Acetaminophen 1 tab PO DISCHARGE - Plan of care discussed with patient and questions answered. The patient was given both verbal and printed discharge instructions. The patient verbalized understanding and ability to comply. The patient is to seek outpatient follow up as noted in the discharge instructions. The patient verbalized understanding and ability to comply. The patient is discharged in stable condition. The patient was instructed to return for worsening symptoms. Medical Decision 1420: The patient was evaluated in room B2. A complete history and physical exam was performed. EMR was reviewed. The patient had a negative echo done on September 06, 2016. It showed conjunctive fracture of 65%. 1516: Toradol Inj 15 mg IV 1616: X-rays show a left lower extremity fibular fracture. Labs and EKG within normal limits. CT of the head within normal limits. Other x-rays within normal limits. I discussed the patient's case with Ortho. He agrees the patient be placed in a splint and discharged home. I queried the PDMP. She has not had an controlled substances filled in the past year as per the PDMP. 1645: Splint was placed fiberglass splint posterior short leg as well as sugar tong. Status post splint application patient was neurovascularly intact with good sensation as well as capillary refill less than 3 seconds. Oxycodone/ Acetaminophen 1 tab PO DISCHARGE - Plan of care discussed with patient and questions answered. The patient was given both verbal and printed discharge instructions. The patient verbalized understanding and ability to comply. The patient is to seek outpatient follow up as noted in the discharge instructions. The patient verbalized understanding and ability to comply. The patient is discharged in stable condition. The patient was instructed to return for worsening symptoms. [place] Drug Monitoring Program Search Results: patient reviewed within database Drug Monitoring Findings: I queried the PDMP. She has not had an controlled substances filled in the past year as per the PDMP. Medication Reconcilliation Current Medication List: was personally reviewed by me Blood Pressure Screening Patient's blood pressure: Normal blood pressure Blood pressure disposition: Did not require urgent referral Consults Time Called: 1610 Consulting Physician: Ortho Returned Call: 1616 I discussed the patient's case with Ortho. He agrees the patient be placed in a splint and discharged home. Impression Primary Impression: Left fibular fracture Additional Impression: Syncope Scribe Attestation The scribe's documentation has been prepared under my direction and personally reviewed by me in its entirety. I confirm that the note above accurately reflects all work, treatment, procedures, and medical decision making performed by me. The chart was completed utilizing [employer] voice recognition software. Grammatical errors, random word insertions, pronoun errors, and incomplete sentences are an occasional consequence of this system due to software limitations, ambient noise, and hardware issues. Any formal questions or concerns about the content, text, or information contained within the body of this dictation should be directly addressed to the physician for clarification. Departure Information Dispostion Home / Self-Care Prescriptions Oxycodone/Acetaminophen 5MG/325MG (PERCOCET 5MG/325MG) Tab 1 TAB PO TID Y for Pain, #21 TAB Prov: Fermin Jones M.D. 09/26/17 Referrals Conrad Mckeon D.O. (PCP) Patient Instructions [facility] Problem Qualifiers Primary Impression: Left fibular fracture Encounter type: initial encounter Fibula location: distal Fracture type: closed Fracture morphology: unspecified fracture morphology Qualified Codes: S82.832A - Other fracture of upper and lower end of left fibula, initial encounter for closed fracture Additional Impression: Syncope Syncope type: unspecified Qualified Codes: R55 - Syncope and collapse
--- NOTE | 2017-09-26 14:56 | DIAGNOSTIC IMAGING REPORT ---
HEAD WITHOUT CONTRAST (CT) CLINICAL HISTORY: 67 years-old Female presenting with fall syncope. TECHNIQUE: Multidetector CT imaging of the head was performed without the use of intravenous contrast. IV contrast: None. A dose lowering technique was used consistent with the principles of ALARA (as low as reasonably achievable). COMPARISON: 01/18/2017. CT DOSE (mGy.cm): The estimated cumulative dose is 1156.[address] cervical spine. FINDINGS: Rn Child topogram: Reverse total left shoulder arthroplasty. Cardiomegaly. Ventricles and sulci normal in size. Brain parenchyma normal in appearance with preserved medrano-white differentiation. No mass effect or midline shift. No hemorrhage or acute territorial infarct. No extra-axial fluid collection. Paranasal sinuses and mastoid air cells clear. Calvarium intact. IMPRESSION: 1. No acute intracranial abnormality. Electronically signed by: Blayne French M.D. 09/26/2017 2:54 PM Dictated Date/Time: 09/26/2017 2:53 PM
--- NOTE | 2017-09-26 15:02 | DIAGNOSTIC IMAGING REPORT ---
CERVICAL SPINE W/O CLINICAL HISTORY: 67 years-old Female presenting with fall syncope. TECHNIQUE: Multidetector CT of the cervical spine was performed without the use of intravenous contrast. IV contrast: None. A dose lowering technique was used consistent with the principles of ALARA (as low as reasonably achievable). COMPARISON: 09/06/2016. CT DOSE (mGy.cm): The estimated cumulative dose is 1156.93 mGy.cm. FINDINGS: Hand Ironer topogram: Reverse total left shoulder arthroplasty. Slight straightening of normal cervical lordosis likely positional and secondary to multilevel degenerative changes. No acute fracture or subluxation. Vertebral bodies maintain normal height and alignment. Intervertebral disc height loss evident at C4-5 through T1 to. Small disc osteophyte complexes noted at these levels. Posterior bony spurring evident from C4-5 through C6-7. Osseous neural foraminal narrowing evident at C5-6 greater on the right and C6-7 bilaterally. 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 Intraosseous lipoma suspected in the C3 vertebral body. Polypoid mucosal thickening in the right maxillary sinus with postsurgical changes of maxillary antrostomies suspected. Lung apices with mosaic attenuation suggesting small airways disease. Paraspinal soft tissues within normal limits allowing for noncontrast technique. Atherosclerosis noted. IMPRESSION: 1. No acute osseous injury of the cervical spine. 2. Multilevel degenerative changes. Electronically signed by: Blayne French M.D. 09/26/2017 3:01 PM Dictated Date/Time: 09/26/2017 2:57 PM
[2017-09-26] MEDS ORDERED: CYCL10TA6 PO (15:08)
[2017-09-26] MEDS ORDERED: KETOROLAC TROMETHAMINE 30 MG/ML VIAL IV STA (15:16)
[2017-09-26 15:43] LABS: BLOOD UREA NITROGEN 13 mg/dl (7-18); CARBON DIOXIDE 24 mmol/L (21-32); CREATININE 0.98 mg/dl (0.60-1.20); GLUCOSE 133 mg/dl (70-99); POTASSIUM 4.2 mmol/L (3.5-5.1); SODIUM 130 mmol/L (136-145)
[2017-09-26 16:14] VITALS: BP 138/80; PULSE 73; O2SAT 96
[2017-09-26 16:16] LABS: BASO % 0.2 %; BASO ABS # 0.01 K/uL (0-0.2); EOS % 1.2 %; EOS ABS # 0.08 K/uL (0-0.5); HEMATOCRIT 35.7 % (37-47); HEMOGLOBIN 12.1 g/dL (12.0-16.0); IG# 0.01 K/uL (0.00-0.02); LYMPH % 15.4 %; LYMPH ABS # 0.99 K/uL (1.2-3.4); MEAN CELL VOLUME 86.4 fL (80-100); MEAN CORPUSCULAR HEMOGLOBIN 29.3 pg (25-34); MEAN CORPUSCULAR HGB CONC 33.9 g/dl (32-36); MEAN PLATELET VOLUME 8.1 fL (7.4-10.4); MONO % 8.7 %; MONO ABS # 0.56 K/uL (0.11-0.59); NEUT % 74.3 %; NEUT ABS # 4.77 K/uL (1.4-6.5); PLATELET COUNT 375 K/uL (130-400); RED CELL DISTRIBUTION WIDTH CV 15.6 % (11.5-14.5); RED CELL DISTRIBUTION WIDTH SD 49.7 fL (36.4-46.3); WHITE BLOOD COUNT 6.42 K/uL (4.8-10.8)
--- NOTE | 2017-09-26 16:26 | DIAGNOSTIC IMAGING REPORT ---
PELVIS 1 OR 2 VIEW ROUTINE CLINICAL HISTORY: 67 years-old Female presenting with fall. TECHNIQUE: Single frontal view of the pelvis was obtained. COMPARISON: CT from 01/18/2016. FINDINGS: Two screw fixation across the right sacroiliac joint. Posterior transpedicular screw and alexandria fixation in the lumbar spine. Laminectomy defects noted with interbody spacers at L4-5 and L5-S1. Osteopenia suggested. Sacroiliac joints, and pubic symphysis, and joint congruent. Bony pelvis intact. Atherosclerosis. IMPRESSION: 1. No acute osseous injury. 2. Osteopenia. 3. Lumbar and sacroiliac joint fixation hardware. Electronically signed by: Blayne French M.D. 09/26/2017 4:25 PM Dictated Date/Time: 09/26/2017 4:21 PM
--- NOTE | 2017-09-26 16:28 | DIAGNOSTIC IMAGING REPORT ---
L ANKLE MIN 3 VIEWS ROUTINE CLINICAL HISTORY: 67 years-old Female presenting with fall pain over medial malleolus. TECHNIQUE: Frontal, mortise, and lateral views of the left ankle were obtained. COMPARISON: None. FINDINGS: Ankle mortise intact. Obliquely oriented fracture of the distal fibular metaphysis extending from the lateral cortex proximally to the medial cortex distally at the level of the syndesmosis. No widening of the distal tibiofibular articulation. Osteopenia may be present. Posterior malleolus intact. Prominent enthesophyte at the inferior calcaneus. Atherosclerosis. IMPRESSION: Nondisplaced Ludwig B fibular fracture. Electronically signed by: Blayne French M.D. 09/26/2017 4:27 PM Dictated Date/Time: 09/26/2017 4:25 PM
--- NOTE | 2017-09-26 16:34 | DIAGNOSTIC IMAGING REPORT ---
L FOOT MIN 3 VIEWS ROUTINE CLINICAL HISTORY: 67 years-old Female presenting with fall pain over dorsum of foot. TECHNIQUE: Frontal, oblique, and lateral views of the left foot were obtained. COMPARISON: None. FINDINGS: Abnormally increased first metatarsophalangeal phalangeal angle suggesting hallux valgus deformity. Osteopenia noted. No acute fracture or acute subluxation. Atherosclerosis. Degenerative changes of the tarsometatarsal articulations. IMPRESSION: 1. Degenerative changes of the tarsometatarsal articulations. 2. Hallux valgus deformity. 3. No acute osseous injury. Electronically signed by: Blayne French M.D. 09/26/2017 4:33 PM Dictated Date/Time: 09/26/2017 4:27 PM
--- NOTE | 2017-09-26 16:35 | DIAGNOSTIC IMAGING REPORT ---
L KNEE 4 OR MORE VIEWS CLINICAL HISTORY: 67 years-old Female presenting with fall. TECHNIQUE: Frontal, sunrise, coronal, and lateral views of the left knee were obtained. COMPARISON: 06/19/2010. FINDINGS: Total left knee arthroplasty with patellar resurfacing. No malalignment. No periprosthetic fracture. No large joint effusion. Osteopenia suspected. Atherosclerosis. IMPRESSION: Total left knee arthroplasty without hardware complication. No acute osseous injury. Electronically signed by: Blayne French M.D. 09/26/2017 4:34 PM Dictated Date/Time: 09/26/2017 4:33 PM
--- NOTE | 2017-09-26 16:36 | DIAGNOSTIC IMAGING REPORT ---
CHEST ONE VIEW PORTABLE CLINICAL HISTORY: 67 years-old Female presenting with fall. TECHNIQUE: Portable upright AP view of the chest was obtained. COMPARISON: 09/01/2017. FINDINGS: Atherosclerosis of the aortic arch. Cardiac silhouette top normal in size. Mildly low lung volumes with hypoventilatory changes. Pulmonary vascular prominence. No focal opacity. No large effusion or pneumothorax. Partially visualized lumbar fusion hardware. Reverse total left shoulder arthroplasty. Cholecystectomy clips noted. IMPRESSION: 1. Mildly low lung volumes with hypoventilatory changes. No convincing evidence of acute cardiopulmonary disease. Electronically signed by: Blayne French M.D. 09/26/2017 4:35 PM Dictated Date/Time: 09/26/2017 4:34 PM
[2017-09-26] MEDS ORDERED: OXYCODONE/ACETAMINOPHEN 5-325 TAB PO ONE (16:45)
[2017-09-26] MEDS ORDERED: OXYC-57 PO (16:51)
== END 2017-09-26 17:10 | disposition home or self-care (01) ==
LOC: EDBD 14:07 → C.EDB 14:08
DX: S82.892A Other fracture of left lower leg, initial encounter for closed fracture (principal); M25.572 Pain in left ankle and joints of left foot; R55 Syncope and collapse; W19.XXXA Unspecified fall, initial encounter; Y92.091 Bathroom in other non-institutional residence as the place of occurrence of the external cause; F41.9 Anxiety disorder, unspecified; E11.9 Type 2 diabetes mellitus without complications; E78.5 Hyperlipidemia, unspecified; I10 Essential (primary) hypertension; E66.01 Morbid (severe) obesity due to excess calories; Z98.84 Bariatric surgery status; Z88.8 Allergy status to other drugs, medicaments and biological substances; Z91.048 Other nonmedicinal substance allergy status; Z88.5 Allergy status to narcotic agent; Z88.6 Allergy status to analgesic agent

== ENCOUNTER 2017-10-02 01:31 | Emergency (ER) | payer MEDICARE ==
[~2017-10-02] VITALS: Ht 160 cm; Wt 87.0 kg
[~2017-10-02 01:31] MED LIST changes: +CYCL10TA6 PO; -DLD/2 PO; -FLX10 PO; -KFL500 PO; -LCTX PO; -MDR4 PO; -MIRT15TA3 PO; -ONDA4TAB46 PO; +OXYC-57 PO; -TRAZ50TA35 PO; -ULT50 PO; -VANC1SUS PO
[2017-10-02 01:37] VITALS: TEMP 36.7; Ht 160 cm; Wt 87.0 kg
--- NOTE | 2017-10-02 02:13 | EMERGENCY ROOM VISIT NOTE ---
History Report prepared by Tano: Nina Cuellar Under the Supervision of: Dr. Sridevi Crowder D.O. First contact with patient: 01:44 Chief Complaint: FOOT PAIN Stated Complaint: TOES TINGLING.PAIN History of Present Illness The patient is a 67 year old female who presents to the Emergency Room with complaints of persistent left foot pain for three days. She reports a fracture to her left fibula. She explains that she was recently seen September 28, 2017 by [facility] to have the cast put on. She states that it was not placed on correctly and was told to come back, though they never contacted her and she decided to come to the ED for further evaluation. She notes the cast is getting tighter and more painful. She notes the pain is at the top of the left foot and ankle. She reports some pain at the break site. She notes a rubbing sensation to the lateral side of her left ankle. She reports tingling sensation in her left toes. She is non-weight bearing. She states that she was on Tramadol , but continued to have pain. She was then prescribed Percocet, though she notes it is making her feel nauseous, so she stopped taking it. Source of History: patient Onset: three days Position: foot (left) Quality: other (tingling sensation) Timing: other (persistent) Associated Symptoms: + nausea Note: She notes rubbing sensation and pain to her left ankle and left foot. Review of Systems See HPI for pertinent positives & negatives. A total of 10 systems reviewed and were otherwise negative. Past Medical & Surgical Medical Problems: (1) Allergic reaction (2) Allergic reaction to drug (3) Anxiety (4) ARF (acute renal failure) (5) Asthma (6) C. difficile diarrhea (7) DM2 (diabetes mellitus, type 2) (8) GERD (gastroesophageal reflux disease) (9) Hyperlipidemia (10) Hypertension (11) Morbid obesity (12) Pseudomonas urinary tract infection (13) Recurrent UTI (urinary tract infection) (14) Sacral back pain (15) Shoulder pain (16) UTI (urinary tract infection) Surgical Problems: (1) H/O gastric bypass (2) H/O hernia repair (3) H/O spinal fusion (4) History of carpal tunnel surgery (5) Previous section (6) S/P appendectomy (7) S/P cholecystectomy (8) S/p left shoulder surgery (9) S/P parathyroidectomy (10) S/P tonsillectomy and adenoidectomy (11) Total knee replacement status Family History Diabetes mellitus Gallbladder disease Heart disease Hypertension Social History Smoking Status: Never Smoker Alcohol Use: none Drug Use: none Marital Status: Housing Status: lives with significant other Occupation Status: retired Current/Historical Medications Scheduled Amlodipine Besylate (Amlodipine Besylate), 10 MG PO QAM Clopidogrel Bisulfate (Clopidogrel), 75 MG PO QAM Cyclosporine (Ophth) (Restasis), 1 DROP OPB BID Duloxetine HCl (Duloxetine HCl), 60 MG PO QAM Metoprolol Succinate (Metoprolol Succinate ER), 25 MG PO QAM Multivitamin (Multivitamin), 1 TAB PO QAM Pantoprazole (Protonix), 40 MG PO QAM Propranolol (Inderal), 20 MG PO TID Scheduled PRN Albuterol Hfa (Ventolin Hfa), 2 PUFFS INH Q6H PRN for Wheezing Fluticasone Propionate (Nasal) (Flonase Allergy Relief), 2 SPRAYS SALOMÓN DAILY PRN for Allergy Symptoms Hydroxyzine HCl (Hydroxyzine HCl), 25 MG PO BID PRN for Anxiety Allergies Coded Allergies: Atorvastatin (Verified Allergy, Unknown, myalgias per PCP note , 10/02/17) Losartan (Verified Allergy, Unknown, HIVES, 10/02/17) ANIGIOEDEMA /TONGUE AND LIP SWELLING Rosuvastatin (Verified Allergy, Unknown, MUSCLE ACHES, 10/02/17) Oxycodone (Verified Adverse Reaction, Intermediate, GI UPSET, 10/02/17) CI Pigment Blue 63 (Verified Adverse Reaction, Mild, PSYCHOSIS, 10/02/17) Duloxetine (Verified Adverse Reaction, Mild, PSYCHOSIS, 10/02/17) Gabapentin (Verified Adverse Reaction, Mild, PSYCHOSIS, 10/02/17) Morphine (Verified Adverse Reaction, Mild, NAUSEA, 10/02/17) NSAIDs (Verified Adverse Reaction, Unknown, s/p bariatric surgery, 10/02/17 ) per gmg Physical Exam Vital Signs Date Time Temp Pulse Resp B/P (MAP) Pulse Ox O2 Delivery O2 Flow Rate FiO2 10/02/17 03:05 72 16 125/72 95 10/02/17 02:45 72 16 125/72 95 Room Air 10/02/17 01:37 36.7 95 20 144/101 98 Room Air Physical Exam Left Lower Extremity: Cast in place. Ecchymosis to the toes. Toes are warm. Normal sensation to the toes. There is a cast in place which extends up to just below the knee. This cast does not appear to be too tight. I am easily able to insert 2-[address] around the top of the cast in the bottom of the cast. Medical Decision & Procedures Medications Administered Medications (Trade) Dose Ordered Sig/Valente Route Start Time Stop Time Status Last Admin Dose Admin Ondansetron HCl (Zofran Odt) 4 mg ONE ONCE PO 10/02/17 02:30 10/02/17 02:31 DC 10/02/17 02:44 4 MG Tramadol HCl (Ultram Tab) 50 mg NOW STAT PO 10/02/17 02:28 10/02/17 02:29 DC 10/02/17 02:45 50 MG Procedure 0228: Ordered Tramadol 50 mg PO 0230: Ordered Zofran 4 mg PO ED Course 0200: Past medical records reviewed. The patient was evaluated in room B11B. A complete history and physical exam was performed. 0224: I reassessed the patient at this time. The patient's cast was removed. She feels better. She is requesting pain medication as she states that she is having pain. She took Myton at 2030 yesterday night. 0228: Ordered Tramadol 50 mg PO 0230: Ordered Zofran 4 mg PO 0250: I reassessed the patient at this time. She feels much better. She will have an Ortho-Glass splint placed on that left ankle. 0300: There is good capillary refill and sensation after the splint was placed. The patient will need to [facility] to have the cast replaced. The patient will be discharged home. Medical Decision The patient is a 67 year old female who presents to the ED with fracture to left fibula. Differential diagnosis includes paraesthesia secondary to cast and skin breakdown secondary to cast. This is a 59-year-old female patient presents to the emergency department with pain in the left lower extremity secondary to her cast. The patient has a known left fibular fracture for which she had a cast placed earlier this week. Unfortunately, the patient continues to have increased discomfort under the cast , specifically at the ankle. She requested that the cast be removed. The cast was removed and there was no obvious skin breakdown and the patient could not pinpoint a specific area of pain. The patient will need to remain nonweightbearing. She was placed into Ortho-Glass she will follow-up with [facility] later today. Medication Reconcilliation Current Medication List: was personally reviewed by me Blood Pressure Screening Patient's blood pressure: Normal blood pressure Impression Primary Impression: Cast discomfort Scribe Attestation The scribe's documentation has been prepared under my direction and personally reviewed by me in its entirety. I confirm that the note above accurately reflects all work, treatment, procedures, and medical decision making performed by me. Departure Information Dispostion Home / Self-Care Referrals Conrad Mckeon D.O. (PCP) Forms HOME CARE DOCUMENTATION FORM, IMPORTANT VISIT INFORMATION Patient Instructions [facility] Additional Instructions Follow up later today with [facility] for cast placement. Remain [id number] Continue to use pain meds as directed.
[2017-10-02] MEDS ORDERED: TRAMADOL HCL 50 MG TAB PO STA (02:28)
[2017-10-02] MEDS ORDERED: ONDANSETRON 4MG OD TAB PO ONE (02:30)
[2017-10-02 03:05] VITALS: BP 125/72; PULSE 72; O2SAT 95
== END 2017-10-02 03:00 | disposition home or self-care (01) ==
LOC: C.EDB 01:32
DX: Z46.89 Encounter for fitting and adjustment of other specified devices (principal); M79.672 Pain in left foot; F41.9 Anxiety disorder, unspecified; N17.9 Acute kidney failure, unspecified; J45.909 Unspecified asthma, uncomplicated; E11.9 Type 2 diabetes mellitus without complications; K21.9 Gastro-esophageal reflux disease without esophagitis; E78.5 Hyperlipidemia, unspecified; I10 Essential (primary) hypertension; Z79.899 Other long term (current) drug therapy; Z88.5 Allergy status to narcotic agent; Z88.8 Allergy status to other drugs, medicaments and biological substances

== ENCOUNTER 2018-01-22 14:09 | Emergency (ER) | payer MEDICARE ==
[~2018-01-22] VITALS: Ht 160 cm; Wt 93.0 kg
[~2018-01-22 14:09] MED LIST changes: -CYCL10TA6 PO; -OXYC-57 PO
[2018-01-22 14:11] VITALS: TEMP 36.9; Ht 160 cm; Wt 93.0 kg
[2018-01-22] MEDS ORDERED: SODIUM CHLORIDE 0.9% 1000ML 1,000 ML IV STA (14:25)
[2018-01-22 14:49] LABS: BASO % 0.2 %; BASO ABS # 0.01 K/uL (0-0.2); EOS % 2.2 %; HEMATOCRIT 37.4 % (37-47); HEMOGLOBIN 12.1 g/dL (12.0-16.0); IG# 0.03 K/uL (0.00-0.02); LYMPH % 40.4 %; LYMPH ABS # 1.84 K/uL (1.2-3.4); MEAN CELL VOLUME 97.4 fL (80-100); MEAN CORPUSCULAR HEMOGLOBIN 31.5 pg (25-34); MEAN CORPUSCULAR HGB CONC 32.4 g/dl (32-36); MEAN PLATELET VOLUME 8.7 fL (7.4-10.4); MONO % 9.5 %; MONO ABS # 0.43 K/uL (0.11-0.59); NEUT ABS # 2.14 K/uL (1.4-6.5); PLATELET COUNT 325 K/uL (130-400); RED CELL DISTRIBUTION WIDTH CV 17.9 % (11.5-14.5); RED CELL DISTRIBUTION WIDTH SD 63.3 fL (36.4-46.3); WHITE BLOOD COUNT 4.55 K/uL (4.8-10.8)
[2018-01-22 15:07] LABS: ALBUMIN 3.1 gm/dl (3.4-5.0); ALKALINE PHOSPHATASE 166 U/L (45-117); ALT/SGPT 18 U/L (12-78); AST/SGOT 25 U/L (15-37); BLOOD UREA NITROGEN 14 mg/dl (7-18); CALCIUM 8.7 mg/dl (8.5-10.1); CARBON DIOXIDE 23 mmol/L (21-32); CREATININE 0.72 mg/dl (0.60-1.20); GLUCOSE 161 mg/dl (70-99); LIPASE 52 U/L (73-393); POTASSIUM 4.2 mmol/L (3.5-5.1); SODIUM 139 mmol/L (136-145); TOTAL PROTEIN 6.4 gm/dl (6.4-8.2)
[2018-01-22] MEDS ORDERED: HYDROmorphone INJ 0.5 MG/0.5 ML SYR IV STA (15:07)
--- NOTE | 2018-01-22 15:32 | DIAGNOSTIC IMAGING REPORT ---
HEAD WITHOUT CONTRAST (CT) CLINICAL HISTORY: 67 years-old Female with dizzy . Acute dizziness with weakness and nausea TECHNIQUE: Multiple axial CT images of the head were obtained without contrast. A dose lowering technique was utilized adhering to the principles of ALARA. COMPARISON: CT head 09/26/2017. FINDINGS: No acute intracranial hemorrhage, midline shift, intracranial mass, hydrocephalus, territorial ischemia or abnormal extra-axial collection. Age-related involutional changes. Cerebral vascular calcifications. The calvarium is intact. Mastoid air cells are clear. Severe mucoperiosteal thickening about the right maxillary sinus which is nearly completely opacified containing hyperdense internal mucosal debris. Mild mucosal thickening about the right ethmoid air cells. The soft tissues and orbits are unremarkable. IMPRESSION: No acute intracranial abnormality. The above report was generated using voice recognition software. It may contain grammatical, syntax or spelling errors. Electronically signed by: Missael Moore M.D. 01/22/2018 3:30 PM Dictated Date/Time: 01/22/2018 3:27 PM
[2018-01-22] MEDS ORDERED: CYM/30 PO (15:58)
[2018-01-22] MEDS ORDERED: LOSA1TAB38 PO (15:58)
--- NOTE | 2018-01-22 16:06 | DIAGNOSTIC IMAGING REPORT ---
LUMBAR SPINE WITHOUT HISTORY: 67 years-old Female lower back pain previous surg acute low back pain with history of prior fall. COMPARISON: CT abdomen and pelvis 01/18/2016 TECHNIQUE: Multiple axial CT images of the lumbar spine were obtained without the use of IV contrast. FINDINGS: Extensive postsurgical changes of the spine with laminectomy changes at L3-L4, L4-L5 and L5-S1. Discectomy changes at L4-L5 and L5-S1. Posterior interbody [place] and screw fusion extends from T11 through S1. Cannulated screws fixate the right SI joint. No evidence of hardware fracture or loosening. Moderate degenerative changes about the left SI joint. Severe multilevel facet arthropathy with level partial bony fusion. Partial bony fusion of the L2-L3 disc space. 5 mm anterolisthesis L4 on L5 and L5 on S1 appears unchanged from comparison. No sacral insufficiency fracture. The iliac bones appear intact. Mild convex right curvature about the mid lumbar spine. No definite acute fracture or subluxation is identified. Evaluation of the central canal and foramina is limited secondary to streak artifact from the hardware. No definite high-grade central canal stenosis. Multilevel foraminal narrowing, most pronounced at L5-S1 with areas of severe stenosis on the right and mild stenosis on the left. No acute processes of the imaged intra-abdominal structures. IMPRESSION: 1. No acute fracture or subluxation of the lumbar spine. 2. Extensive postsurgical changes as detailed above. Chronic grade 1 anterolisthesis L4 on L5 and L5 on S1 appears unchanged dating back to 01/18/2016. No evidence of hardware fracture or loosening. 3. Demineralized appearance of the bones. 4. Severe right-sided foraminal narrowing at L5-S1. The above report was generated using voice recognition software. It may contain grammatical, syntax or spelling errors. Electronically signed by: Missael Moore M.D. 01/22/2018 4:05 PM Dictated Date/Time: 01/22/2018 3:55 PM
[2018-01-22 16:50] VITALS: BP 175/118; PULSE 84; O2SAT 99
--- NOTE | 2018-01-22 21:02 | EMERGENCY ROOM VISIT NOTE ---
History Report prepared by Tano: Enma Chavez Under the Supervision of: Dr. Gonzalo Richard D.O. First contact with patient: 14:15 Chief Complaint: WEAKNESS Stated Complaint: DIZZINESS, WEAKNESS, NAUSEA, LOWER BACK PAIN History of Present Illness The patient is a 67 year old female who presents to the Emergency Room with complaints of worsening bilateral leg/arm weakness over the last month. She states that she is able to move her legs but that they are tired and weak. She states that her arms feel the same as well and that they have felt like this over the last month. The patient states that she fell in September and has been weak since. The patient states that after this fall that she was sedentary for 6 weeks. She states that she called [facility] but that they are unable to see the patient for 3 weeks. The patient also reports having dizziness over the last month. She states that she has postural vertigo but is not being treated for it. She describes her dizziness as "room spinning" and states that she feels that she is going to pass out secondary to her dizziness. The patient states that she has also followed up with her PCP for this. The patient also reports having lower back pain since November. The patient reports a history of a broken fibula and a right SI joint repair. The patient states that Dr. Garcia did her spinal fusion in 2014. She states that she was on Plavix for a possible TIA but states that she has been off of it for 3 weeks. The patient reports having nausea but denies vomiting, abdominal pain, and urinary symptoms. She denies any recent changes in medications. Source of History: patient Onset: over the last month Position: leg (bilateral) Quality: other (weakness) Timing: worsening Associated Symptoms: + nausea, + weakness (dizziness ), No vomiting, No abdominal pain, No urinary symptoms Review of Systems See HPI for pertinent positives & negatives. A total of 10 systems reviewed and were otherwise negative. Past Medical & Surgical Medical Problems: (1) Allergic reaction (2) Allergic reaction to drug (3) Anxiety (4) ARF (acute renal failure) (5) Asthma (6) C. difficile diarrhea (7) DM2 (diabetes mellitus, type 2) (8) GERD (gastroesophageal reflux disease) (9) Hyperlipidemia (10) Hypertension (11) Morbid obesity (12) Pseudomonas urinary tract infection (13) Recurrent UTI (urinary tract infection) (14) Sacral back pain (15) Shoulder pain (16) UTI (urinary tract infection) Surgical Problems: (1) H/O gastric bypass (2) H/O hernia repair (3) H/O spinal fusion (4) History of carpal tunnel surgery (5) Previous section (6) S/P appendectomy (7) S/P cholecystectomy (8) S/p left shoulder surgery (9) S/P parathyroidectomy (10) S/P tonsillectomy and adenoidectomy (11) Total knee replacement status Family History Diabetes mellitus Gallbladder disease Heart disease Hypertension Social History Smoking Status: Never Smoker Alcohol Use: none Drug Use: none Marital Status: Housing Status: lives with significant other Occupation Status: retired Current/Historical Medications Scheduled Amlodipine Besylate (Amlodipine Besylate), 10 MG PO QAM Cyclosporine (Ophth) (Restasis), 1 DROP OPB BID Duloxetine HCl (Cymbalta), 90 MG PO DAILY Losartan Potassium (Cozaar), 50 MG PO DAILY Multivitamin (Multivitamin), 1 TAB PO QAM Pantoprazole (Protonix), 40 MG PO QAM Propranolol (Inderal), 20 MG PO TID Scheduled PRN Albuterol Hfa (Ventolin Hfa), 2 PUFFS INH Q6H PRN for Wheezing Fluticasone Propionate (Nasal) (Flonase Allergy Relief), 2 SPRAYS SALOMÓN DAILY PRN for Allergy Symptoms Allergies Coded Allergies: Atorvastatin (Verified Allergy, Unknown, myalgias per PCP note , 01/22/18) Losartan (Verified Allergy, Unknown, HIVES, 01/22/18) ANIGIOEDEMA /TONGUE AND LIP SWELLING Rosuvastatin (Verified Allergy, Unknown, MUSCLE ACHES, 01/22/18) Oxycodone (Verified Adverse Reaction, Intermediate, GI UPSET, 01/22/18) CI Pigment Blue 63 (Verified Adverse Reaction, Mild, PSYCHOSIS, 01/22/18) Duloxetine (Verified Adverse Reaction, Mild, PSYCHOSIS, 01/22/18) Gabapentin (Verified Adverse Reaction, Mild, PSYCHOSIS, 01/22/18) Morphine (Verified Adverse Reaction, Mild, NAUSEA, 01/22/18) NSAIDs (Verified Adverse Reaction, Unknown, s/p bariatric surgery, 01/22/18) per gmg Physical Exam Vital Signs Date Time Temp Pulse Resp B/P (MAP) Pulse Ox O2 Delivery O2 Flow Rate FiO2 01/22/18 16:50 84 20 175/118 99 01/22/18 15:57 87 18 161/101 96 Room Air 01/22/18 14:11 36.9 108 17 138/94 95 Room Air Physical Exam GENERAL: Sitting up in bed, alert, well appearing, well nourished, no distress, non-toxic EYE EXAM: normal conjunctiva. PERRL and EOM's intact. OROPHARYNX: no exudate, no erythema, lips, buccal mucosa, and tongue normal and mucous membranes are moist NECK: supple, no nuchal rigidity, no adenopathy, non-tender LUNGS: Clear to auscultation. Normal chest wall mechanics HEART: no murmurs, S1 normal and S2 normal ABDOMEN: abdomen soft, non-tender, normo-active bowel sounds, no masses, no rebound or guarding. BACK: Back is symmetrical on inspection and there is no deformity, acute reproducible tenderness in the lower lumbar spine, no CVA tenderness. SKIN: no rashes and no bruising UPPER EXTREMITIES: upper extremities are grossly normal. LOWER EXTREMITIES: No pitting edema. Flexion and extension of the hips, knees, ankles, and EHL 5/5 bilaterally. Gross sensation is intact. Left leg is slightly weaker than right per patient since fibula fracture. NEURO EXAM: Normal sensorium, cranial nerves II-XII intact, normal speech, no weakness of arms, no weakness of legs. No drift. Finger to nose intact. Gross sensation intact. Left leg is slightly weaker than right per patient since fibula fracture. Medical Decision & Procedures ER Provider Diagnostic Interpretation: Radiology results as stated below per my review and the radiologist's interpretation: LUMBAR SPINE WITHOUT HISTORY: 67 years-old Female lower back pain previous surg acute low back pain with history of prior fall. COMPARISON: CT abdomen and pelvis 01/18/2016 TECHNIQUE: Multiple axial CT images of the lumbar spine were obtained without the use of IV contrast. FINDINGS: Extensive postsurgical changes of the spine with laminectomy changes at L3-L4, L4-L5 and L5-S1. Discectomy changes at L4-L5 and L5-S1. Posterior interbody [place] and screw fusion extends from T11 through S1. Cannulated screws fixate the right SI joint. No evidence of hardware fracture or loosening. Moderate degenerative changes about the left SI joint. Severe multilevel facet arthropathy with level partial bony fusion. Partial bony fusion of the L2-L3 disc space. 5 mm anterolisthesis L4 on L5 and L5 on S1 appears unchanged from comparison. No sacral insufficiency fracture. The iliac bones appear intact. Mild convex right curvature about the mid lumbar spine. No definite acute fracture or subluxation is identified. Evaluation of the central canal and foramina is limited secondary to streak artifact from the hardware. No definite high-grade central canal stenosis. Multilevel foraminal narrowing, most pronounced at L5-S1 with areas of severe stenosis on the right and mild stenosis on the left. No acute processes of the imaged intra-abdominal structures. IMPRESSION: 1. No acute fracture or subluxation of the lumbar spine. 2. Extensive postsurgical changes as detailed above. Chronic grade 1 anterolisthesis L4 on L5 and L5 on S1 appears unchanged dating back to 01/18/2016. No evidence of hardware fracture or loosening. 3. Demineralized appearance of the bones. 4. Severe right-sided foraminal narrowing at L5-S1. The above report was generated using voice recognition software. It may contain grammatical, syntax or spelling errors. Electronically signed by: Missael Moore M.D. 01/22/2018 4:05 PM Dictated Date/Time: 01/22/2018 3:55 PM HEAD WITHOUT CONTRAST (CT) CLINICAL HISTORY: 67 years-old Female with dizzy . Acute dizziness with weakness and nausea TECHNIQUE: Multiple axial CT images of the head were obtained without contrast. A dose lowering technique was utilized adhering to the principles of ALARA. COMPARISON: CT head 09/26/2017. FINDINGS: No acute intracranial hemorrhage, midline shift, intracranial mass, hydrocephalus, territorial ischemia or abnormal extra-axial collection. Age-related involutional changes. Cerebral vascular calcifications. The calvarium is intact. Mastoid air cells are clear. Severe mucoperiosteal thickening about the right maxillary sinus which is nearly completely opacified containing hyperdense internal mucosal debris. Mild mucosal thickening about the right ethmoid air cells. The soft tissues and orbits are unremarkable. IMPRESSION: No acute intracranial abnormality. The above report was generated using voice recognition software. It may contain grammatical, syntax or spelling errors. Electronically signed by: Missael Moore M.D. 01/22/2018 3:30 PM Dictated Date/Time: 01/22/2018 3:27 PM Laboratory Results 01/22/18 14:40 Red Blood Count 3.84, Mean Corpuscular Volume 97.4, Mean Corpuscular Hemoglobin 31.5, Mean Corpuscular Hemoglobin Concent 32.4, Mean Platelet Volume 8.7, Neutrophils (%) (Auto) 47.0, Lymphocytes (%) (Auto) 40.4, Monocytes (%) (Auto) 9.5, Eosinophils (%) (Auto) 2.2, Basophils (%) (Auto) 0.2, Neutrophils # (Auto) 2.14, Lymphocytes # (Auto) 1.84, Monocytes # (Auto) 0.43, Eosinophils # (Auto) 0.10, Basophils # (Auto) 0.01 01/22/18 14:40 Test 01/22/18 14:35 01/22/18 14:40 Urine Color YELLOW Urine Appearance CLEAR (CLEAR) Urine pH 5.0 (4.5-7.5) Urine Specific [place] 1.019 (1.000-1.030) Urine Protein NEG (NEG) Urine Glucose (UA) NEG (NEG) Urine Ketones TRACE (NEG) Urine Occult Blood NEG (NEG) Urine Nitrite NEG (NEG) Urine Bilirubin NEG (NEG) Urine Urobilinogen NEG (NEG) Urine Leukocyte Esterase NEG (NEG) Urine WBC (Auto) 0 /hpf (0-5) Urine RBC (Auto) 0-4 /hpf (0-4) Urine Hyaline Casts (Auto) 1-5 /lpf (0-5) Urine Epithelial Cells (Auto) 10-20 /lpf (0-5) Urine Bacteria (Auto) NEG (NEG) Urine Crystals TALC (NONE PRSENT) White Blood Count 4.55 K/uL (4.8-10.8) Red Blood Count 3.84 M/uL (4.2-5.4) Hemoglobin 12.1 g/dL (12.0-16.0) Hematocrit 37.4 % (37-47) Mean Corpuscular Volume 97.4 fL (80-100) Mean Corpuscular Hemoglobin 31.5 pg (25-34) Mean Corpuscular Hemoglobin Concent 32.4 g/dl (32-36) Platelet Count 325 K/uL (130-400) Mean Platelet Volume 8.7 fL (7.4-10.4) Neutrophils (%) (Auto) 47.0 % Lymphocytes (%) (Auto) 40.4 % Monocytes (%) (Auto) 9.5 % Eosinophils (%) (Auto) 2.2 % Basophils (%) (Auto) 0.2 % Neutrophils # (Auto) 2.14 K/uL (1.4-6.5) Lymphocytes # (Auto) 1.84 K/uL (1.2-3.4) Monocytes # (Auto) 0.43 K/uL (0.11-0.59) Eosinophils # (Auto) 0.10 K/uL (0-0.5) Basophils # (Auto) 0.01 K/uL (0-0.2) RDW Standard Deviation 63.3 fL (36.4-46.3) RDW Coefficient of Variation 17.9 % (11.5-14.5) Immature Granulocyte % (Auto) 0.7 % Immature Granulocyte # (Auto) 0.03 K/uL (0.00-0.02) Anion Gap 8.0 mmol/L (3-11) Est Creatinine Clear Calc Drug Dose 81.0 ml/min Estimated GFR () 99.7 Estimated GFR (Non- 86.1 BUN/Creatinine Ratio 19.9 (10-20) Calcium Level 8.7 mg/dl (8.5-10.1) Total Bilirubin 0.2 mg/dl (0.2-1) Direct Bilirubin < 0.1 mg/dl (0-0.2) Aspartate Amino Transf (AST/SGOT) 25 U/L (15-37) Alanine Aminotransferase (ALT/SGPT) 18 U/L (12-78) Alkaline Phosphatase 166 U/L (45-117) Total Protein 6.4 gm/dl (6.4-8.2) Albumin 3.1 gm/dl (3.4-5.0) Lipase 52 U/L (73-393) Laboratory results per my review. Medications Administered Medications (Trade) Dose Ordered Sig/Valente Route Start Time Stop Time Status Last Admin Dose Admin Sodium Chloride 1,000 ml @ 999 mls/hr Q1H1M STAT IV 01/22/18 14:25 01/22/18 15:25 DC 01/22/18 15:25 999 MLS/HR Hydromorphone HCl (Dilaudid Inj) 0.5 mg NOW STAT IV 01/22/18 15:07 01/22/18 15:08 DC 01/22/18 15:11 0.5 MG ED Course ED COURSE: Vital signs were reviewed and showed hypertension The patients medical record was reviewed The above diagnostic studies were performed and reviewed. ED treatments and interventions as stated above. 1416: The patient was evaluated in room A2. A complete history and physical examination was performed. 1425: Ordered Sodium Chloride 1000 ml @ 999 mls/hr IV. 1507: Ordered Dilaudid Inj 0.5 mg IV. 1630: Upon reevaluation, the patient is feeling better. I discussed the findings and the treatment plan with the patient. She verbalizes agreement and understanding. She was discharged home. Medical Decision Differential Diagnosis includes but is not limited to dehydration, stroke, anemia, hypoglycemia, hyponatremia, hypernatremia, urinary tract infection, pneumonia, bronchitis, sepsis, gastroenteritis, additional abdominal pathology, metabolic abnormalities and infections. Patient is a 67-year-old female who presents the ER for dizziness which is been present for the past 2 months which comes and goes with positions only. Patient has been worked up for this before. She also has lower back pain and upper extremity bilaterally and lower extremity bilaterally weakness which is been going on for close to 2 months as well. CBC along with BMP, LFTs, bilirubin and lipase is unremarkable. UA was negative. CT head and lumbar spine were unremarkable. Nothing to suggest CVA. Weakness in her left lower extremity has been present since the fracture. She has been fairly immobile do favor most of this is deconditioning as she is diffusely weak in the upper and lower extremities. Patient was updated in regards to this. She was given fluids. She is discharged follow-up with her PCP as an outpatient. She is also given doses of IV narcotics and fluids while in the ER. Discussed with Pt concerning signs and symptoms to watch out for. Pt was instructed to follow up with their PCP and discussed with the patient their option to return to the ED at anytime for persistent or worsening symptoms. The appropriate anticipatory guidance and out-patient management, including indications for return to the emergency department, were explained at length to the patient and understood. Medication Reconcilliation Current Medication List: was personally reviewed by me Blood Pressure Screening Patient's blood pressure: Elevated blood pressure Blood pressure disposition: Elevated BP felt to be situational Impression Primary Impression: Back pain Additional Impressions: Orthostatic hypotension Weakness Scribe Attestation The scribe's documentation has been prepared under my direction and personally reviewed by me in its entirety. I confirm that the note above accurately reflects all work, treatment, procedures, and medical decision making performed by me. Departure Information Dispostion Home / Self-Care Referrals Conrad Mckeon D.O. (PCP) Forms HOME CARE DOCUMENTATION FORM, IMPORTANT VISIT INFORMATION Patient Instructions Back Pain - [facility], ED Hypotension Orthostatic, My [facility] Additional Instructions Please follow up with your primary care doctor with in the next 24 hours. Any worsening of your symptoms, please return to the ED immediately. This includes any fevers greater than 100.4, worsening pain, chest pain, shortness breath, persistent nausea, vomiting, unable to eat or drink, weakness or numbness in her legs or groin, unable to void/urinate or unable to move her bowels, or any other concerning signs or symptoms from your standpoint. Please take Tylenol or Motrin as needed for pain. Please make sure that you follow-up with your spine surgeon. Problem Qualifiers Primary Impression: Back pain Back pain location: low back pain Chronicity: acute Back pain laterality: midline Sciatica presence: without sciatica Qualified Codes: M54.5 - Low back pain
== END 2018-01-22 16:51 | disposition home or self-care (01) ==
LOC: C.EDB 14:10 → C.EDA 16:51
DX: M54.5 Low back pain (principal); I95.1 Orthostatic hypotension; R29.898 Other symptoms and signs involving the musculoskeletal system; J45.909 Unspecified asthma, uncomplicated; E11.9 Type 2 diabetes mellitus without complications; I10 Essential (primary) hypertension; K21.9 Gastro-esophageal reflux disease without esophagitis; F41.9 Anxiety disorder, unspecified; Z88.8 Allergy status to other drugs, medicaments and biological substances; Z88.5 Allergy status to narcotic agent; Z88.6 Allergy status to analgesic agent; Z91.09 Other allergy status, other than to drugs and biological substances; Z79.899 Other long term (current) drug therapy